=== PATIENT | female | born 1980 | race Caucasian/White ===

== ENCOUNTER 2022-04-16 14:18 | Emergency (ER) | payer MEDICARE ==
--- NOTE | 2022-04-16 14:21 | ERPHSYRPT ---
- History of Present Illness Time Seen by Provider: 04/16/22 14:20 Historian: patient Exam Limitations: no limitations Physician History: This is a 42-year-old female who underwent an abdominal surgery that included a bowel resection on 04/03/[address] David at an outside facility. Patient has a history of Crohn's disease. She is also had a hysterectomy in the past. Patient states she is she is having increased abdominal/incisional pain of her midline incision on her abdomen for the last few days. The skin of the mid and lower portion of her midline incision has dehisced and there is drainage present. Patient has a history of gastroesophageal reflux disease, anxiety as well as uterine fibroids and uterine cancer. Timing/Duration: day(s) Quality: burning (Few days) Abdominal Pain Onset Location: other (Midline incision skin dehisced) Previous symptoms: no prior history Allergies/Adverse Reactions: acetaminophen [From Tylenol] Allergy (Severe, Verified 04/16/22 14:27) Swelling of Tongue and Lips hydrocodone [From Lortab] Allergy (Severe, Verified 04/16/22 14:27) Swelling of Tongue and Lips natalizumab [From Tysabri] Allergy (Severe, Verified 04/16/22 14:27) Hives onion Allergy (Severe, Verified 04/16/22 14:27) Swelling of Tongue and Lips tomato Allergy (Severe, Verified 04/16/22 14:27) Tightness of Throat morphine Adverse Reaction (Severe, Verified 04/16/22 14:27) Travel Risk - International Travel Have you traveled outside of the country in past 3 weeks: No - Coronavirus Screening Are you exhibiting any of the following symptoms?: No Close contact with a COVID-19 positive Pt in past 14-21 Days: No - Review of Systems Constitutional: No Symptoms Eyes: No Symptoms Ears, Nose, & Throat: No Symptoms Respiratory: No Symptoms Cardiac: No Symptoms Abdominal/Gastrointestinal: Abdominal Pain (Along midline incision site that has dehisced), Nausea, Vomiting Genitourinary Symptoms: No Symptoms Musculoskeletal: No Symptoms Skin: No Symptoms Neurological: No Symptoms Psychological: No Symptoms Endocrine: No Symptoms Hematologic/Lymphatic: No Symptoms Immunological/Allergic: No Symptoms All Other Systems: Reviewed and Negative - Past Medical History Pertinent Past Medical History: Yes Neurological History: Migraines ENT History: No Pertinent History Cardiac History: No Pertinent History Respiratory History: No Pertinent History Endocrine Medical History: No Pertinent History Musculoskeletal History: No Pertinent History GI Medical History: Crohns Disease, GERD, Ulcer History: No Pertinent History Psycho-Social History: Anxiety, Depression Female Reproductive Disorders: Fibroids, Uterine Cancer - Past Surgical History Past Surgical History: Yes Neuro Surgical History: No Pertinent History Cardiac: No Pertinent History Respiratory: No Pertinent History Gastrointestinal: Cholecystectomy, Other Genitourinary: No Pertinent History Musculoskeletal: Orthopedic Surgery Female Surgical History: Hysterectomy, Dilation & Curettage, Other Other Surgical History: small intestine resect, pins R foot, multiple port placement - Social History Smoking Status: Former smoker Drug Use: none - Nursing Vital Signs Nursing Vital Signs: Initial Vital Signs Temperature 98.5 F 04/16/22 14:30 Pulse Rate 106 H 04/16/22 14:30 Respiratory Rate 17 04/16/22 14:30 Blood Pressure 94/69 04/16/22 14:30 O2 Sat by Pulse Oximetry 97 04/16/22 14:30 Pain Scale Pain Intensity 8 - Physical Exam General Appearance: no apparent distress, alert, anxiety Eye Exam: PERRL/EOMI, eyes nml inspection Ears, Nose, Throat Exam: normal ENT inspection, moist mucous membranes Neck Exam: normal inspection, non-tender, supple, full range of motion Respiratory Exam: normal breath sounds, airway intact, No chest tenderness, No respiratory distress Cardiovascular Exam: regular rate/rhythm, normal heart sounds, normal peripheral pulses Gastrointestinal/Abdomen Exam: soft, normal bowel sounds, tenderness (Along midline incision that has opened in the midportion at the skin level and the distal portion. There is no odor present.) Pelvic Exam: not done Rectal Exam: not done Back Exam: normal inspection, normal range of motion, No CVA tenderness, No vertebral tenderness Extremity Exam: normal inspection, normal range of motion, pelvis stable Neurologic Exam: alert, oriented x 3, cooperative, unemployment examiner II-XII nml as tested, normal mood/affect, nml cerebellar function, nml station & gait, sensation nml Skin Exam: normal color, warm, dry Lymphatic Exam: No adenopathy SpO2 Interpretation: normal O2 Delivery: Room Air - Course Nursing assessment & vital signs reviewed: Yes Ordered Tests: Active Orders 24 hr Category Date Time Status IV Insertion STAT Care 04/16/22 14:40 Active ABDOMEN AND PELVIS W/0 CONTRAS [CT] Stat Exams 04/16/22 14:41 Completed AMYLASE Stat Lab 04/16/22 15:00 Completed BLOOD CULTURE Stat Lab 04/16/22 15:05 Received CBC W DIFF Stat Lab 04/16/22 15:00 Completed CMP Stat Lab 04/16/22 15:00 Completed CULTURE,URINE Stat Lab 04/16/22 16:58 Received CULTURE,WOUND Stat Lab 04/16/22 15:58 Received LIPASE Stat Lab 04/16/22 15:00 Completed Lactic Acid Stat Lab 04/16/22 15:03 Completed UA W/RFX CULTURE Stat Lab 04/16/22 16:58 Completed Medication Summary Generic Name Dose Route Start Last Admin Trade Name Freq PRN Reason Stop Dose Admin Sodium Chloride 1,000 mls @ 100 mls/hr 04/16/22 16:45 04/16/22 19:27 Sodium Chloride 0.9% 1000 Ml IV 05/16/22 16:44 999 mls/hr .Q10H ROMULO Infusion Discontinued Medications Generic Name Dose Route Start Last Admin Trade Name Freq PRN Reason Stop Dose Admin Hydromorphone HCl 1 mg 04/16/22 15:01 04/16/22 15:10 Hydromorphone 1 Mg/1ml Inj 1 Mg/Ml Syringe IV 04/16/22 15:02 1 mg STAT ONE Administration Hydromorphone HCl Confirm 04/16/22 15:10 Hydromorphone 1 Mg/1ml Inj 1 Mg/Ml Syringe Administered 04/16/22 15:11 Dose 1 mg .ROUTE .STK-MED ONE Sodium Chloride 1,000 mls @ 999 mls/hr 04/16/22 14:40 04/16/22 16:03 Sodium Chloride 0.9% 1000 Ml IV 04/16/22 15:40 Infused .Q1H1M STA Infusion Sodium Chloride Confirm 04/16/22 14:58 Sodium Chloride 0.9% 1000 Ml Administered 04/16/22 14:59 Dose 1,000 mls @ ud .ROUTE .STK-MED ONE Potassium Chloride 20 meq in 100 mls @ 50 mls/hr 04/16/22 16:35 04/16/22 16:53 Potassium Chloride 20 Meq In Water 100ml IV 04/16/22 18:34 50 mls/hr STAT ONE Administration Potassium Chloride Confirm 04/16/22 16:37 Potassium Chloride 20 Meq In Water 100ml Administered 04/16/22 16:38 Dose 100 mls @ ud IV .STK-MED ONE Sodium Chloride 1,000 mls @ 999 mls/hr 04/16/22 16:51 Sodium Chloride 0.9% 1000 Ml IV 04/16/22 17:51 .Q1H1M STA Piperacillin Sod/Tazobactam 100 mls @ 200 mls/hr 04/16/22 19:17 04/16/22 19:43 Sod 3.375 gm/ Sodium Chloride IV 04/16/22 19:46 200 mls/hr STAT ONE Administration Sodium Chloride Confirm 04/16/22 19:27 Sodium Chloride 100ml Mini-Bag Plus Administered 04/16/22 19:28 Dose 100 mls @ ud IV .STK-MED ONE Ondansetron HCl 4 mg 04/16/22 14:40 04/16/22 15:05 Ondansetron Hcl 4 Mg/2 Ml Vial IV 04/16/22 14:41 4 mg STAT ONE Administration Ondansetron HCl Confirm 04/16/22 14:57 Ondansetron Hcl 4 Mg/2 Ml Vial Administered 04/16/22 14:58 Dose 4 mg .ROUTE .STK-MED ONE Piperacillin Sod/Tazobactam Sod Confirm 04/16/22 19:27 Piperacillin/Tazobactam Sodium 3.375 Gm Vial Administered 04/16/22 19:28 Dose 3.375 gm IV .STK-MED ONE Prochlorperazine Edisylate 10 mg 04/16/22 16:52 04/16/22 16:57 Prochlorperazine Edisylate 10 Mg/2 Ml Vial IV 04/16/22 16:53 10 mg STAT ONE Administration Prochlorperazine Edisylate Confirm 04/16/22 16:57 Prochlorperazine Edisylate 10 Mg/2 Ml Vial Administered 04/16/22 16:58 Dose 10 mg .ROUTE .STK-MED ONE Lab/Rad Data: Laboratory Result Diagrams 04/16/22 15:00 04/16/22 15:00 Laboratory Results 04/16/22 04/16/22 04/16/22 Range/Units 16:58 15:03 15:00 WBC (4.0-10.5) x10^3/uL RBC (4.1-5.4) x10^6/uL Hgb (12.0-16.0) g/dL Hct (35-47) % MCV (78-100) fL MCH (26-32) pg MCHC (32-36) g/dL RDW (11.5-14.0) % Plt Count (150-450) x10^3/uL MPV (7.5-11.0) fL Gran % (36.0-66.0) % Immature Gran % (Auto) (0.00-0.4) % Nucleat RBC Rel Count (0.00-0.1) % Eos # (Auto) (0-0.5) x10^3/uL Immature Gran # (Auto) (0.00-0.03) x10^3u/L Absolute Lymphs (auto) (1.0-4.6) x10^3/uL Absolute Monos (auto) (0.0-1.3) x10^3/uL Absolute Nucleated RBC (0.00-0.01) x10^3u/L Lymphocytes % (24.0-44.0) % Monocytes % (0.0-12.0) % Eosinophils % (0.00-5.0) % Basophils % (0.0-0.4) % Absolute Granulocytes (1.4-6.9) x10^3/uL Basophils # (0-0.4) x10^3/uL Sodium 135 L (137-145) mmol/L Potassium 2.4 L* (3.5-5.1) mmol/L Chloride 101 (98-107) mmol/L Carbon Dioxide 19 L (22-30) mmol/L Anion Gap 17.4 H (5-15) MEQ/L BUN 22 H (7-17) mg/dL Creatinine 2.81 H (0.52-1.04) mg/dL Estimated GFR 19.8 ML/MIN Glucose 121 H (74-106) mg/dL Lactic Acid 1.0 (0.4-2.0) Calcium 8.6 (8.4-10.2) mg/dL Total Bilirubin 0.90 (0.2-1.3) mg/dL AST 20 (14-36) U/L ALT 19 (0-35) U/L Alkaline Phosphatase 103 (38-126) U/L Serum Total Protein 8.3 H (6.3-8.2) g/dL Albumin 3.6 (3.5-5.0) g/dL Amylase 59 (30-110) U/L Lipase 61 (23-300) U/L Urinalys Dipstick Clnc MAIN LAB Urine Color YELLOW (YELLOW) Urine Appearance CLEAR (CLEAR) Urine pH 5.5 (5-6) Ur Specific Wray >=1.030 (1.005-1.025) POC Urine Protein Conf 100 (Negative) Urine Ketones NEGATIVE (NEGATIVE) Urine Nitrite NEGATIVE (NEGATIVE) Urine Bilirubin SMALL (NEGATIVE) Urine Urobilinogen 0.2 (0-1) mg/dL Urine Leukocytes TRACE (NEGATIVE) Urine WBC (Auto) 16-25 (0-5) /HPF Urine RBC (Auto) 16-25 (0-2) /HPF U Hyaline Cast (Auto) 6-10 (0-2) /LPF U Epithel Cells (Auto) RARE (FEW) /HPF Urine Bacteria (Auto) NONE (NEGATIVE) /HPF Urine RBC MODERATE (0-5) Alonso/ul Urine Mucus (Auto) SLIGHT (NEGATIVE) /HPF Ur Culture Indicated? YES Urine Glucose NEGATIVE (NEGATIVE) mg/dL 04/16/22 Range/Units 15:00 WBC 16.3 H (4.0-10.5) x10^3/uL RBC 3.24 L (4.1-5.4) x10^6/uL Hgb 9.0 L (12.0-16.0) g/dL Hct 28.4 L (35-47) % MCV 87.7 (78-100) fL MCH 27.8 (26-32) pg MCHC 31.7 L (32-36) g/dL RDW 13.2 (11.5-14.0) % Plt Count 480 H (150-450) x10^3/uL MPV 9.9 (7.5-11.0) fL Gran % 80.6 H (36.0-66.0) % Immature Gran % (Auto) 0.4 (0.00-0.4) % Nucleat RBC Rel Count 0.0 (0.00-0.1) % Eos # (Auto) 0.05 (0-0.5) x10^3/uL Immature Gran # (Auto) 0.07 H (0.00-0.03) x10^3u/L Absolute Lymphs (auto) 1.52 (1.0-4.6) x10^3/uL Absolute Monos (auto) 1.52 H (0.0-1.3) x10^3/uL Absolute Nucleated RBC 0.00 (0.00-0.01) x10^3u/L Lymphocytes % 9.3 L (24.0-44.0) % Monocytes % 9.3 (0.0-12.0) % Eosinophils % 0.3 (0.00-5.0) % Basophils % 0.1 (0.0-0.4) % Absolute Granulocytes 13.08 H (1.4-6.9) x10^3/uL Basophils # 0.02 (0-0.4) x10^3/uL Sodium (137-145) mmol/L Potassium (3.5-5.1) mmol/L Chloride (98-107) mmol/L Carbon Dioxide (22-30) mmol/L Anion Gap (5-15) MEQ/L BUN (7-17) mg/dL Creatinine (0.52-1.04) mg/dL Estimated GFR ML/MIN Glucose (74-106) mg/dL Lactic Acid (0.4-2.0) Calcium (8.4-10.2) mg/dL Total Bilirubin (0.2-1.3) mg/dL AST (14-36) U/L ALT (0-35) U/L Alkaline Phosphatase (38-126) U/L Serum Total Protein (6.3-8.2) g/dL Albumin (3.5-5.0) g/dL Amylase (30-110) U/L Lipase (23-300) U/L Urinalys Dipstick Clnc Urine Color (YELLOW) Urine Appearance (CLEAR) Urine pH (5-6) Ur Specific Wray (1.005-1.025) POC Urine Protein Conf (Negative) Urine Ketones (NEGATIVE) Urine Nitrite (NEGATIVE) Urine Bilirubin (NEGATIVE) Urine Urobilinogen (0-1) mg/dL Urine Leukocytes (NEGATIVE) Urine WBC (Auto) (0-5) /HPF Urine RBC (Auto) (0-2) /HPF U Hyaline Cast (Auto) (0-2) /LPF U Epithel Cells (Auto) (FEW) /HPF Urine Bacteria (Auto) (NEGATIVE) /HPF Urine RBC (0-5) Alonso/ul Urine Mucus (Auto) (NEGATIVE) /HPF Ur Culture Indicated? Urine Glucose (NEGATIVE) mg/dL - Progress Progress: improved, pain not gone completely, re-examined Progress Note: 04/16/22 19:07 CAT scan of the abdomen pelvis shows no evidence for abdominal wall/fascial dehiscence. There is no evidence of bowel obstruction or free air. 04/16/22 20:05 Patient states that she wants to go home. She is feeling much better after the IV fluids and infusion of potassium. We will send a prescription for pain medicine, potassium and oral antibiotics for home. Counseled pt/family regarding: lab results, diagnosis, need for follow-up, rad results - Departure Clinical Impression: Postoperative dehiscence of skin wound, Hypokalemia, Leukocytosis Condition: Stable Critical Care Time: No Referrals: VINCE MCGOVERN MD [NON-STAFF PHY W/O PRIVILEGES] - Follow up/PCP as directed Additional Instructions: Drink clear liquids. Do not advance your diet until you are drinking clear liquids well. Take your potassium as prescribed. Return to the [facility] lab on the morning of Thursday, April 18 to recheck your potassium level. Call your general surgeon tomorrow morning to make arrangements for follow-up appointment. Change her abdominal wall dressing as needed. May get in the shower and let soap water run into the openings and then rinse out. Cover with bandage. Prescriptions: Hydrocodone/APAP 5/325 [[place] 5/325 mg] 1 each PO Q6H PRN PRN #10 tablet MDD 4 PRN Reason: Pain Ciprofloxacin [Cipro 500 MG] 500 mg PO BID #14 tablet Metronidazole 500 mg [Flagyl 500 MG] 500 mg PO TID #21 tablet Potassium Chloride Tab* [Klor Con] 10 meq PO BID #5 tab
[2022-04-16] MEDS ORDERED: Zofran 4 MG/2 ML VIAL IV ONE (14:40)
[2022-04-16] MEDS ORDERED: Sodium Chloride 0.9% 1000 ML 1,000 ML IV STA ×2 (14:40→16:51)
[2022-04-16] MEDS ORDERED: Zofran 4 MG/2 ML VIAL ONE (14:57)
[2022-04-16] MEDS ORDERED: Sodium Chloride 0.9% 1000 ML 1,000 ML ONE ×2 (14:58→16:41)
[2022-04-16] MEDS ORDERED: Hydromorphone 1 mg/ml Injection IV ONE (15:01)
[2022-04-16 15:09] LABS: Absolute Neutrophil Ct (ANC) 13.08 x10^3/uL (1.4-6.9); Basophil (Absolute #) 0.02 x10^3/uL (0-0.4); Eosinophil % 0.3 % (0.00-5.0); Eosinophil (Absolute #) 0.05 x10^3/uL (0-0.5); Hematocrit 28.4 % (35-47); Lymphocyte (Absolute #) 1.52 x10^3/uL (1.0-4.6); Lymphocytes % 9.3 % (24.0-44.0); Mean Cell Volume 87.7 fL (78-100); Mean Corpuscular Hemoglobin 27.8 pg (26-32); Mean Corpuscular Hgb Concent. 31.7 g/dL (32-36); Mean Platelet Volume 9.9 fL (7.5-11.0); Monocyte (Absolute #) 1.52 x10^3/uL (0.0-1.3); Monocytes % 9.3 % (0.0-12.0); Neutrophil % 80.6 % (36.0-66.0); Platelet Count 480 x10^3/uL (150-450); Red Blood Count 3.24 x10^6/uL (4.1-5.4); Red Cell Distribution Width 13.2 % (11.5-14.0); White Blood Count 16.3 x10^3/uL (4.0-10.5)
[2022-04-16] MEDS ORDERED: Hydromorphone 1 mg/ml Injection ONE (15:10)
[2022-04-16 15:29] LABS: ALBUMIN 3.6 g/dL (3.5-5.0); ANION GAP 17.4 MEQ/L (5-15); BILIRUBIN,TOTAL 0.9 mg/dL (0.2-1.3); Calcium 8.6 mg/dL (8.4-10.2); Creatinine 1 2.81 mg/dL (0.52-1.04); EST GLOMERULAR FILTRATION RATE 19.8 ML/MIN; Total Protein 8.3 g/dL (6.3-8.2)
[2022-04-16 15:34] LABS: Potassium 2.4 mmol/L (3.5-5.1)
[2022-04-16] MEDS ORDERED: POTASSIUM CHLORIDE 20 mEq IN WATER 100ML 20 MEQ/100 ML BAG IV ONE (16:35)
[2022-04-16] MEDS ORDERED: POTASSIUM CHLORIDE 20 mEq IN WATER 100ML 100 ML IV ONE (16:37)
--- NOTE | 2022-04-16 16:40 | XRAY ---
Exam: CT of the abdomen and pelvis without IV contrast. CTDI: 9.10 mGy Comparison: [None.] Indication: 42-year-old female with history of Crohn's disease. Complains of nausea and vomiting following hospital discharge on 04/05/2022 subsequent to partial bowel resection performed on 04/03/2022; complains of pain and swelling around incision site for the last few days; abdominal wound dehiscence. Technique: Non-IV contrast axial images were obtained through the abdomen and pelvis. No oral contrast was given. Reconstructed coronal and sagittal images were created and reviewed. Findings: The lung bases appear clear. The exam is somewhat limited as no IV or oral contrast was given. The liver, spleen, pancreas, and adrenal glands appear grossly unremarkable. Surgical clips consistent with prior cholecystectomy are noted within the right upper quadrant. No intrahepatic biliary duct distention is seen. The kidneys appear of normal size and reveals no renal calculi, definite mass, or hydronephrosis. The abdominal aorta appears of normal diameter. No abnormal retroperitoneal lymphadenopathy is seen. A midline vertical abdominal incision is seen. I do not appreciate any diastasis. Numerous surgical material is seen within the anterior lower abdomen in the midline. It appears there may have been a right hemicolectomy. Correlate with surgical operative note. I note some hazy stranding within the adjacent small bowel loops, perhaps secondary to postoperative changes. No definite bowel obstruction or free air or free fluid is seen. Nor do I see an abscess in this region. Some of the small bowel loops appear in close proximity with the posterior margin of the anterior peritoneum. This is nonspecific, but consider adhesions. There may be one small diverticulum within the distal descending colon. The uterine fundus is mildly prominent. The urinary bladder is partially empty. No pelvic mass or free intraperitoneal fluid is seen. The skeleton reveals no acute fracture or aggressive bone lesion. Impression: 1. The exam is somewhat difficult to interpret without the aid of IV or oral contrast. Evidently, the patient is 13 days status post laparotomy with partial bowel resection (? right hemicolon). Some of the small bowel loops appear in close proximity within the lower anterior abdominal peritoneum in the midline. Consider adhesions. I see no evidence of abdominal wall dehiscence. Clinical correlation is recommended regarding the superficial anterior subcutaneous wound. No bowel obstruction or free intraperitoneal air is seen. No free intraperitoneal fluid is seen. 2. Status post cholecystectomy.
[2022-04-16] MEDS ORDERED: Compazine 10 MG/2 ML IV ONE (16:52)
[2022-04-16] MEDS: Sodium Chloride 0.9% 1000 ML 1,000 ML IV SCH ×2 (16:53→16:56)
[2022-04-16] MEDS ORDERED: Compazine 10 MG/2 ML ONE (16:57)
[2022-04-16 17:25] LABS: Appearance CLEAR (CLEAR); Bilirubin SMALL (NEGATIVE); Dipstick done @ ? MAIN LAB; Glucose NEGATIVE (NEGATIVE); Ketones NEGATIVE (NEGATIVE); Nitrite NEGATIVE (NEGATIVE); Ph 5.5 (5-6); Protein,Urine Dip 100 (Negative); RBC MODERATE Ery/ul (0-5); Specific Gravity >=1.030 (1.005-1.025); Urobilinogen 0.2 mg/dL (0-1)
[2022-04-16 17:33] LABS: Epithelial Cells RARE /HPF (FEW); Mucus SLIGHT /HPF (NEGATIVE)
[2022-04-16 17:36] LABS: Urine Cultured Indicated? YES
[2022-04-16] MEDS ORDERED: PIPERACILLIN/TAZOBACTAM 3.375 GM in Sodium Chloride 100ML MINI-BAG PLUS 100 ML IV ONE (19:17)
[2022-04-16] MEDS ORDERED: Sodium Chloride 100ML MINI-BAG PLUS 100 ML IV ONE (19:27)
[2022-04-16] MEDS ORDERED: PIPERACILLIN/TAZOBACTAM IV ONE (19:27)
[2022-04-16] MEDS ORDERED: Klor Con PO ONE ×2 (20:12→20:47)
[2022-04-16 20:20] LABS: Slide Review 1 YES
[2022-04-16 21:01] VITALS: BP 102/70; PULSE 85; O2SAT 98
== END 2022-04-16 20:00 | disposition home or self-care (01) ==
LOC: ED 14:18
DX: T81.31XA Disruption of external operation (surgical) wound, not elsewhere classified, initial encounter (principal); E87.6 Hypokalemia; D72.829 Elevated white blood cell count, unspecified; G89.18 Other acute postprocedural pain; R10.9 Unspecified abdominal pain; Z79.891 Long term (current) use of opiate analgesic
CPT/HCPCS: 36000; 36415; 74176; 80053; 81015; 82150; 83605; 83690; 85025; 87040; 87070; 87086; 96374; 96375; 99284; J1170; J2405; J3480; A9270-GY

== ENCOUNTER 2022-06-21 15:30 | Inpatient (IN) | payer MEDICARE ==
--- NOTE | 2022-06-21 15:39 | ERPHSYRPT ---
- History of Present Illness Time Seen by Provider: 06/21/22 15:30 Source: patient, EMS Exam Limitations: no limitations Patient Subjective Stated Complaint: PT HERE FOR MULTI COS, PT CALLED AMBULANCE FOR NG TUBE PROBLEM, SHE STATES SHE VOMTIED TIP UP AND THEN HAD A SEIZURE. SHE STATES SHE HAS SEIZURES WHEN SHE IS UNDER STRESS, PT HAS COLON RESECTION . AND NOW HAS INFECTION IN INCISION Triage Nursing Assessment: PT ALERT NOW, ABLE TO ANSWER QUESTIONS, HAS NG TUBE TO LEFT NOSTRIL THAT IS HANGING OUT OF MOUTH, DR KENDALL REMVED NG, AND VOMITNG HAS STOPPED, PT HAS DRESSING TO ABD WITH A DRAIN TO LEFT SIDE OF ABD WITH YELLOW DRAINAGE NOTED IN DRAIN, ABD SOFT, NO EDEMA NOTED Physician History: This is a 42-year-old female patient who had a bowel resection on 04/03/2022 and had out side facility. Postoperatively she has had some issues including weight loss and incision infection. Patient has a left upper extremity PICC line placed and a left intra-abdominal/subcutaneous drain placed. In addition she had a nasojejunal feeding tube placed because she had had significant weight loss. Today, the patient was having abdominal pain with vomiting then was gagging to the point where she dislodged the distal tip of the feeding tube. The tube that was in the hypopharynx was gagging her. Because of the multiple episodes of gagging, the patient became stressed and she had pseudoseizure. Patient admits to having pseudoseizures in the past when she is under a great deal of stress. Patient has significant anxiety issues as well as ulcer disease and gastroesophageal reflux disease. Patient arrives to the emergency department by EMS gagging and under distress because the distal portion of the feeding tube was dislodged with the proximal portion gagging her in the back of the throat. Timing/Duration: today Severity: moderate Associated Symptoms: nausea, vomiting, abdominal pain, No shortness of breath (Mild diffuse), No chest pain Allergies/Adverse Reactions: acetaminophen [From Tylenol] Allergy (Severe, Verified 06/21/22 15:40) Swelling of Tongue and Lips hydrocodone [From Lortab] Allergy (Severe, Verified 06/21/22 15:40) Swelling of Tongue and Lips natalizumab [From Tysabri] Allergy (Severe, Verified 06/21/22 15:40) Hives onion Allergy (Severe, Verified 06/21/22 15:40) Swelling of Tongue and Lips tomato Allergy (Severe, Verified 06/21/22 15:40) Tightness of Throat latex Allergy (Verified 06/21/22 15:40) morphine Adverse Reaction (Severe, Verified 06/21/22 15:40) Home Medications: Cyanocobalamin 1000 Mcg/ml [Cyanocobalamin B-12 1000 MCG/ML] 1,000 mcg IJ DIRECTIONS UNKNOWN 05/14/22 [History] Ergocalciferol (Vitamin D2) [Vitamin D2] 50,000 unit PO Q7D 05/14/22 [History] Oxycodone HCl 5 mg PO Q4HPRN PRN 05/14/22 [History] Fluconazole 200 mg PO DAILY 06/21/22 [History] Minocycline HCl 1 ea DAILY 06/21/22 [History] Pyridoxine HCl (Vitamin B6) [Vitamin B-6] 220 mg DAILY 06/21/22 [History] Vitamin A Palmitate [Vitamin A] 3,000 units DAILY 06/21/22 [History] Zinc Gluconate [Zinc] 50 mg PO DAILY 06/21/22 [History] Hx Tetanus, Diphtheria Vaccination/Date Given: Yes Hx Influenza Vaccination/Date Given: No Hx Pneumococcal Vaccination/Date Given: No Immunizations Up to Date: Yes Travel Risk - International Travel Have you traveled outside of the country in past 3 weeks: No - Coronavirus Screening Are you exhibiting any of the following symptoms?: No - Vaccine Status Have you recieved a Covid-19 vaccination: Yes Toe Stripper: Unknown - Vaccination Dates Dates if Unknown: 2020 - Review of Systems Constitutional: No Symptoms Eyes: No Symptoms Ears, Nose, & Throat: No Symptoms Respiratory: No Symptoms Cardiac: No Symptoms Abdominal/Gastrointestinal: Abdominal Pain, Nausea, Vomiting (Secondary to the feeding tube gagging her) Genitourinary Symptoms: No Symptoms Musculoskeletal: No Symptoms Skin: No Symptoms Neurological: Seizure (Pseudoseizure) Psychological: No Symptoms, Anxiety Endocrine: No Symptoms Hematologic/Lymphatic: No Symptoms Immunological/Allergic: No Symptoms All Other Systems: Reviewed and Negative - Past Medical History Pertinent Past Medical History: Yes Neurological History: Migraines ENT History: No Pertinent History Cardiac History: No Pertinent History Respiratory History: No Pertinent History Endocrine Medical History: No Pertinent History Musculoskeletal History: No Pertinent History GI Medical History: Crohns Disease, GERD, Ulcer History: No Pertinent History Psycho-Social History: Anxiety, Depression Female Reproductive Disorders: Fibroids, Uterine Cancer Other Medical History: unknown source of kidney failure - Past Surgical History Past Surgical History: Yes Neuro Surgical History: No Pertinent History Cardiac: No Pertinent History Respiratory: No Pertinent History Gastrointestinal: Cholecystectomy, Other Genitourinary: No Pertinent History Musculoskeletal: Orthopedic Surgery Female Surgical History: Hysterectomy, Dilation & Curettage, Other Other Surgical History: small intestine resect 4-5 times, pins R foot, multiple port placement - Social History Smoking Status: Former smoker Exposure to second hand smoke: No Drug Use: none Patient Lives Alone: No - Female History Hx Last Menstrual Period: HYSTER Hx Now: No - Nursing Vital Signs Nursing Vital Signs: Initial Vital Signs Temperature 96.4 F 06/21/22 15:43 Pulse Rate 120 H 06/21/22 15:43 Respiratory Rate 18 06/21/22 15:43 Blood Pressure 101/65 06/21/22 15:43 O2 Sat by Pulse Oximetry 100 06/21/22 15:43 Pain Scale Pain Intensity 5 - Physical Exam General Appearance: moderate distress, alert, anxiety Eye Exam: PERRL/EOMI, eyes nml inspection Ears, Nose, Throat Exam: moist mucous membranes, other (Distal tip of the feeding tube was dislodged. The proximal portion of the feeding tube is gagging the patient in the hypopharynx.) Neck Exam: normal inspection, non-tender, supple, full range of motion Respiratory Exam: normal breath sounds, lungs clear, airway intact, No chest tenderness, No respiratory distress Cardiovascular Exam: tachycardia Gastrointestinal/Abdomen Exam: soft, normal bowel sounds, tenderness (Mild diffuse), guarding (Mild diffuse with palpation), No rebound Pelvic Exam: not done Back Exam: normal inspection, normal range of motion, No CVA tenderness, No vertebral tenderness Extremity Exam: normal inspection, normal range of motion, pelvis stable Neurologic Exam: alert, oriented x 3, cooperative, 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 Ordered Tests: Active Orders 24 hr Category Date Time Status IV Insertion STAT Care 06/21/22 15:52 Active ABDOMEN AND PELVIS W/0 CONTRAS [CT] Stat Exams 06/21/22 15:52 Taken HEAD WITHOUT CONTRAST [CT] Stat Exams 06/21/22 15:53 Taken AMYLASE Stat Lab 06/21/22 16:00 Completed CBC W DIFF Stat Lab 06/21/22 16:00 Completed CMP Stat Lab 06/21/22 16:00 Completed CULTURE,URINE Stat Lab 06/21/22 17:14 Received LIPASE Stat Lab 06/21/22 16:00 Completed Lactic Acid Stat Lab 06/21/22 15:52 Completed Lactic Acid Stat Lab 06/21/22 16:58 Completed UA W/RFX CULTURE Stat Lab 06/21/22 17:14 Completed Transfer Order Routine Transfer 06/21/22 Ordered Medication Summary Generic Name Dose Route Start Last Admin Trade Name Freq PRN Reason Stop Dose Admin Piperacillin Sod/Tazobactam 100 mls @ 200 mls/hr 06/21/22 19:15 Sod 3.375 gm/ Sodium Chloride IV 06/21/22 19:44 STAT ONE Discontinued Medications Generic Name Dose Route Start Last Admin Trade Name Freq PRN Reason Stop Dose Admin Hydromorphone HCl 1 mg 06/21/22 15:52 06/21/22 16:29 Hydromorphone 1 Mg/1ml Inj 1 Mg/Ml Syringe IV 06/21/22 15:53 1 mg STAT ONE Administration Hydromorphone HCl Confirm 06/21/22 16:26 Hydromorphone 1 Mg/1ml Inj 1 Mg/Ml Syringe Administered 06/21/22 16:27 Dose 1 mg .ROUTE .STK-MED ONE Sodium Chloride 1,000 mls @ 999 mls/hr 06/21/22 15:52 06/21/22 17:46 Sodium Chloride 0.9% 1000 Ml IV 06/21/22 16:52 Infused .Q1H1M STA Infusion Sodium Chloride Confirm 06/21/22 16:26 Sodium Chloride 0.9% 1000 Ml Administered 06/21/22 16:27 Dose 1,000 mls @ ud .ROUTE .STK-MED ONE Ondansetron HCl 4 mg 06/21/22 15:52 06/21/22 16:29 Ondansetron Hcl 4 Mg/2 Ml Vial IV 06/21/22 15:53 4 mg STAT ONE Administration Ondansetron HCl Confirm 06/21/22 16:26 Ondansetron Hcl 4 Mg/2 Ml Vial Administered 06/21/22 16:27 Dose 4 mg .ROUTE .[facility]-MED ONE Lab/Rad Data: Laboratory Result Diagrams 06/21/22 16:00 06/21/22 16:00 Laboratory Results 06/21/22 06/21/22 06/21/22 Range/Units 17:14 16:58 16:00 WBC (4.0-10.5) x10^3/uL RBC (4.1-5.4) x10^6/uL Hgb (12.0-16.0) g/dL Hct (35-47) % MCV (78-100) fL MCH (26-32) pg MCHC (32-36) g/dL RDW (11.5-14.0) % Plt Count (150-450) x10^3/uL MPV (7.5-11.0) fL Gran % (36.0-66.0) % Immature Gran % (Auto) (0.00-0.4) % Nucleat RBC Rel Count (0.00-0.1) % Eos # (Auto) (0-0.5) x10^3/uL Immature Gran # (Auto) (0.00-0.03) x10^3u/L Absolute Lymphs (auto) (1.0-4.6) x10^3/uL Absolute Monos (auto) (0.0-1.3) x10^3/uL Absolute Nucleated RBC (0.00-0.01) x10^3u/L Lymphocytes % (24.0-44.0) % Monocytes % (0.0-12.0) % Eosinophils % (0.00-5.0) % Basophils % (0.0-0.4) % Absolute Granulocytes (1.4-6.9) x10^3/uL Basophils # (0-0.4) x10^3/uL Sodium 139 (137-145) mmol/L Potassium 4.0 (3.5-5.1) mmol/L Chloride 102 (98-107) mmol/L Carbon Dioxide 29 (22-30) mmol/L Anion Gap 11.9 (5-15) MEQ/L BUN 13 (7-17) mg/dL Creatinine 0.99 (0.52-1.04) mg/dL Estimated GFR > 60.0 ML/MIN Glucose 105 (74-106) mg/dL Lactic Acid 1.8 (0.4-2.0) Calcium 8.1 L (8.4-10.2) mg/dL Total Bilirubin 0.50 (0.2-1.3) mg/dL AST 43 H (14-36) U/L ALT 14 (0-35) U/L Alkaline Phosphatase 129 H (38-126) U/L Serum Total Protein 8.7 H (6.3-8.2) g/dL Albumin 3.2 L (3.5-5.0) g/dL Amylase 67 (30-110) U/L Lipase 71 (23-300) U/L Urinalys Dipstick Clnc MAIN LAB Urine Color YELLOW (YELLOW) Urine Appearance CLEAR (CLEAR) Urine pH 7.0 (5-6) Ur Specific [place] 1.020 (1.005-1.025) POC Urine Protein Conf 100 (Negative) Urine Ketones NEGATIVE (NEGATIVE) Urine Nitrite NEGATIVE (NEGATIVE) Urine Bilirubin NEGATIVE (NEGATIVE) Urine Urobilinogen 0.2 (0-1) mg/dL Urine Leukocytes TRACE (NEGATIVE) Urine WBC (Auto) 6-10 (0-5) /HPF Urine RBC (Auto) 3-5 (0-2) /HPF U Epithel Cells (Auto) RARE (FEW) /HPF Urine Bacteria (Auto) NONE SEEN (NEGATIVE) /HPF Urine RBC TRACE-LYSED (0-5) Alonso/ul Urine Mucus (Auto) SLIGHT (NEGATIVE) /HPF Ur Culture Indicated? YES Urine Glucose NEGATIVE (NEGATIVE) mg/dL 06/21/22 06/21/22 Range/Units 16:00 15:52 WBC 8.6 (4.0-10.5) x10^3/uL RBC 3.39 L (4.1-5.4) x10^6/uL Hgb 8.8 L (12.0-16.0) g/dL Hct 29.8 L (35-47) % MCV 87.9 (78-100) fL MCH 26.0 (26-32) pg MCHC 29.5 L (32-36) g/dL RDW 15.9 H (11.5-14.0) % Plt Count 268 (150-450) x10^3/uL MPV 10.1 (7.5-11.0) fL Gran % 77.2 H (36.0-66.0) % Immature Gran % (Auto) 0.2 (0.00-0.4) % Nucleat RBC Rel Count 0.0 (0.00-0.1) % Eos # (Auto) 0.02 (0-0.5) x10^3/uL Immature Gran # (Auto) 0.02 (0.00-0.03) x10^3u/L Absolute Lymphs (auto) 0.93 L (1.0-4.6) x10^3/uL Absolute Monos (auto) 0.97 (0.0-1.3) x10^3/uL Absolute Nucleated RBC 0.00 (0.00-0.01) x10^3u/L Lymphocytes % 10.9 L (24.0-44.0) % Monocytes % 11.3 (0.0-12.0) % Eosinophils % 0.2 (0.00-5.0) % Basophils % 0.2 (0.0-0.4) % Absolute Granulocytes 6.60 (1.4-6.9) x10^3/uL Basophils # 0.02 (0-0.4) x10^3/uL Sodium (137-145) mmol/L Potassium (3.5-5.1) mmol/L Chloride (98-107) mmol/L Carbon Dioxide (22-30) mmol/L Anion Gap (5-15) MEQ/L BUN (7-17) mg/dL Creatinine (0.52-1.04) mg/dL Estimated GFR ML/MIN Glucose (74-106) mg/dL Lactic Acid 1.0 (0.4-2.0) Calcium (8.4-10.2) mg/dL Total Bilirubin (0.2-1.3) mg/dL AST (14-36) U/L ALT (0-35) U/L Alkaline Phosphatase (38-126) U/L Serum Total Protein (6.3-8.2) g/dL Albumin (3.5-5.0) g/dL Amylase (30-110) U/L Lipase (23-300) U/L Urinalys Dipstick Clnc Urine Color (YELLOW) Urine Appearance (CLEAR) Urine pH (5-6) Ur Specific [place] (1.005-1.025) POC Urine Protein Conf (Negative) Urine Ketones (NEGATIVE) Urine Nitrite (NEGATIVE) Urine Bilirubin (NEGATIVE) Urine Urobilinogen (0-1) mg/dL Urine Leukocytes (NEGATIVE) Urine WBC (Auto) (0-5) /HPF Urine RBC (Auto) (0-2) /HPF U Epithel Cells (Auto) (FEW) /HPF Urine Bacteria (Auto) (NEGATIVE) /HPF Urine RBC (0-5) Alonso/ul Urine Mucus (Auto) (NEGATIVE) /HPF Ur Culture Indicated? Urine Glucose (NEGATIVE) mg/dL - Progress Progress: improved Progress Note: 06/21/22 16:54 After removing the feeding tube the patient's symptoms completely resolved. 06/21/22 19:16 Medical decision making: This patient should be evaluated and managed in the hospital setting. I did put a call into [facility] and spoke with the patient's surgeon Dr. David. I reviewed the patient's history, clinical findings, and results of her labs and radiographic studies. The patient has a small left basilar? Septic emboli. She has small to moderate pericardial effusion. She has an infiltrate in the region of the coloenteric anastomosis with in situ drain. There is also a small right subhepatic collection. There is also postoperative midline abdominal wall incisional infiltrate with periumbilical collection. A mucocutaneous fistula cannot be ruled out. Dr. David agrees that this patient should be managed in the hospital. However they do not have beds available for the next approximately 5 days. It may be 2 days depending on the discharges. They do accept her for transfer. In the meantime, we will place her in the hospital here at [facility]. I spoke with Dr. Lopez and he agrees. We will place her on intravenous antibiotics, IV fluids, antiemetics, and pain medication intravenously. We will also repeat labs in the morning. Discussed with : Chester Counseled pt/family regarding: lab results, diagnosis, rad results - Departure Departure Disposition: Home Clinical Impression: Vomiting, Abdominal pain, Cutaneous fistula Condition: Stable Critical Care Time: No Referrals: LEE JENKINS MD [Primary Care Provider] - Follow up/PCP as directed
[2022-06-21] MEDS ORDERED: Zofran 4 MG/2 ML VIAL IV ONE (15:52)
[2022-06-21] MEDS ORDERED: Hydromorphone 1 mg/ml Injection IV ONE (15:52)
[2022-06-21] MEDS ORDERED: Sodium Chloride 0.9% 1000 ML 1,000 ML IV STA (15:52)
[2022-06-21] MEDS ORDERED: Zofran 4 MG/2 ML VIAL ONE (16:26)
[2022-06-21] MEDS ORDERED: Sodium Chloride 0.9% 1000 ML 1,000 ML ONE (16:26)
[2022-06-21] MEDS ORDERED: Hydromorphone 1 mg/ml Injection ONE (16:26)
[2022-06-21 17:01] LABS: Basophil (Absolute #) 0.02 x10^3/uL (0-0.4); Eosinophil % 0.2 % (0.00-5.0); Eosinophil (Absolute #) 0.02 x10^3/uL (0-0.5); Hematocrit 29.8 % (35-47); Hemoglobin 8.8 g/dL (12.0-16.0); Lymphocyte (Absolute #) 0.93 x10^3/uL (1.0-4.6); Lymphocytes % 10.9 % (24.0-44.0); Mean Cell Volume 87.9 fL (78-100); Mean Corpuscular Hgb Concent. 29.5 g/dL (32-36); Mean Platelet Volume 10.1 fL (7.5-11.0); Monocyte (Absolute #) 0.97 x10^3/uL (0.0-1.3); Monocytes % 11.3 % (0.0-12.0); Neutrophil % 77.2 % (36.0-66.0); Platelet Count 268 x10^3/uL (150-450); Red Blood Count 3.39 x10^6/uL (4.1-5.4); Red Cell Distribution Width 15.9 % (11.5-14.0); White Blood Count 8.6 x10^3/uL (4.0-10.5)
[2022-06-21 17:16] LABS: ALBUMIN 3.2 g/dL (3.5-5.0); ALKALINE PHOSPHATASE 129 U/L (38-126); AMYLASE 67 U/L (30-110); ANION GAP 11.9 MEQ/L (5-15); BLOOD UREA NITROGEN 13 mg/dL (7-17); CHLORIDE 102 mmol/L (98-107); Calcium 8.1 mg/dL (8.4-10.2); Carbon Dioxide 29 mmol/L (22-30); Creatinine 1 0.99 mg/dL (0.52-1.04); EST GLOMERULAR FILTRATION RATE > 60.0 ML/MIN; Glucose 105 mg/dL (74-106); LIPASE 71 U/L (23-300); SGOT/AST 43 U/L (14-36); SGPT/ALT 14 U/L (0-35); SODIUM 139 mmol/L (137-145); Total Protein 8.7 g/dL (6.3-8.2)
[2022-06-21 17:46] LABS: Appearance CLEAR (CLEAR); Bilirubin NEGATIVE (NEGATIVE); Glucose NEGATIVE (NEGATIVE); Ketones NEGATIVE (NEGATIVE); RBC TRACE-LYSED Ery/ul (0-5)
[2022-06-21 17:47] LABS: Dipstick done @ ? MAIN LAB; Nitrite NEGATIVE (NEGATIVE); Protein,Urine Dip 100 (Negative); Urobilinogen 0.2 mg/dL (0-1)
[2022-06-21 18:01] LABS: Bacteria NONE SEEN /HPF (NEGATIVE); Epithelial Cells RARE /HPF (FEW); Mucus SLIGHT /HPF (NEGATIVE)
[2022-06-21 18:02] LABS: Urine Cultured Indicated? YES
[2022-06-21] MEDS ORDERED: PIPERACILLIN/TAZOBACTAM 3.375 GM in Sodium Chloride 100ML MINI-BAG PLUS 100 ML IV ONE (19:15)
[2022-06-21] MEDS ORDERED: PIPERACILLIN/TAZOBACTAM IV ONE (19:33)
[2022-06-21] MEDS ORDERED: Sodium Chloride 0.9% 0 ML ONE (19:34)
[2022-06-21] MEDS ORDERED: Sodium Chloride 100ML MINI-BAG PLUS 100 ML IV ONE (19:37)
[2022-06-21 20:00] LABS: INFLUENZA A NEGATIVE (NEGATIVE); INFLUENZA B NEGATIVE (NEGATIVE); RESPIRATORY SYNCTIAL VIRUS NEGATIVE (Negative); SARS-CoV-2 Xpert Express NEGATIVE (NEGATIVE)
[2022-06-21] MEDS ORDERED: TYLENOL 325 MG PO PRN (21:15)
[2022-06-21] MEDS ORDERED: Sterile H2O 10 ml IJ ONE (21:41)
[2022-06-21] MEDS: Sodium Chloride 0.9% 1000 ML 1,000 ML IV SCH (21:49)
--- NOTE | 2022-06-21 21:56 | XRAY ---
Indication: Seizure-like activity. Multiple contiguous axial images obtained through the head without contrast. Comparison: None Ventriculosulcal pattern appears symmetric. Absent septum pellucidum. No acute intracranial hemorrhage, abnormal extra-axial fluid collection, or mass effect. Fourth ventricle is midline without hydrocephalus. Bony calvarium intact. Visualized paranasal sinuses and mastoid air cells are clear. Impression: Negative CT head without contrast exam. Comment: Preliminary interpretation made by [facility]. No critical discrepancy.
[2022-06-21] MEDS: Hydromorphone 1 mg/ml Injection IV PRN (22:00)
--- NOTE | 2022-06-21 22:02 | XRAY ---
Indication: Vomiting following NG tube removal. Multiple contiguous axial images obtained through the abdomen and pelvis without contrast. Comparison: April 16, 2022 Lung bases demonstrates new 2 small left lower lobe cavitary lesions, possible septic emboli in the right clinical setting. No effusion. Heart not enlarged with new small anterior pericardial effusion/thickening. Noncontrasted stomach and bowel loops appear nonobstructed. New left paraumbilical percutaneous catheter with pigtail anterior midabdomen with there is new enterocolonic anastomosis with moderate mesenteric induration. Tiny subhepatic free fluid but no suspicious walled off fluid collection or free air. Again previous cholecystectomy. Spleen is now enlarged measuring 13 cm. Mild diffuse fatty liver. Remaining pancreas, adrenal glands, kidneys, ureters, bladder, and aorta are unremarkable for noncontrast exam. Osseous structures intact. Impression: 1. New small left lower lobe cavitary lesions. Rule out septic emboli. 2. Interval enterocolonic anastomosis with new surrounding mesenteric induration and percutaneous pigtail catheter. Small subhepatic fluid but no wall left lobe collection or free air. 3. New anterior pericardial effusion/thickening. Echocardiogram may yield further information. 4. Incidental fatty liver and splenomegaly. Comment: Preliminary interpretation made by [facility]. No critical discrepancy.
[2022-06-21] MEDS: PROTONIX 40 MG IV IV SCH (22:03)
[2022-06-22] MEDS ORDERED: Sodium Chloride 100ML MINI-BAG PLUS 100 ML IV ONE ×2 (00:03→05:36)
[2022-06-22] MEDS ORDERED: PIPERACILLIN/TAZOBACTAM IV ONE ×2 (00:03→05:36)
[2022-06-22] MEDS: PIPERACILLIN/TAZOBACTAM 3.375 GM in Sodium Chloride 100ML MINI-BAG PLUS 100 ML IV SCH ×5 (00:51→22:55)
[2022-06-22] MEDS: Hydromorphone 1 mg/ml Injection IV PRN ×6 (02:03→22:51)
[2022-06-22 06:47] LABS: Basophil (Absolute #) 0.01 x10^3/uL (0-0.4); Eosinophil % 2.7 % (0.00-5.0); Eosinophil (Absolute #) 0.13 x10^3/uL (0-0.5); Hematocrit 24.8 % (35-47); Hemoglobin 7.2 g/dL (12.0-16.0); Lymphocyte (Absolute #) 0.85 x10^3/uL (1.0-4.6); Lymphocytes % 17.7 % (24.0-44.0); Mean Cell Volume 88.6 fL (78-100); Mean Corpuscular Hemoglobin 25.7 pg (26-32); Mean Platelet Volume 10.8 fL (7.5-11.0); Monocytes % 14.6 % (0.0-12.0); Neutrophil % 64.6 % (36.0-66.0); Platelet Count 243 x10^3/uL (150-450); Red Cell Distribution Width 15.9 % (11.5-14.0); White Blood Count 4.8 x10^3/uL (4.0-10.5)
[2022-06-22 06:57] LABS: ALBUMIN 2.5 g/dL (3.5-5.0); ALKALINE PHOSPHATASE 101 U/L (38-126); ANION GAP 6.3 MEQ/L (5-15); BLOOD UREA NITROGEN 10 mg/dL (7-17); CHLORIDE 105 mmol/L (98-107); Calcium 7.9 mg/dL (8.4-10.2); Carbon Dioxide 29 mmol/L (22-30); Creatinine 1 1.04 mg/dL (0.52-1.04); EST GLOMERULAR FILTRATION RATE > 60.0 ML/MIN; Glucose 92 mg/dL (74-106); Potassium 3.8 mmol/L (3.5-5.1); SGOT/AST 48 U/L (14-36); SGPT/ALT 15 U/L (0-35); SODIUM 137 mmol/L (137-145); Total Protein 7.3 g/dL (6.3-8.2)
[2022-06-22] MEDS: Zofran 4 MG/2 ML VIAL IV PRN ×3 (08:22→22:51)
[2022-06-22] MEDS ORDERED: OXYCODONE HCL 5 MG PO PRN (08:40)
[2022-06-22] MEDS ORDERED: NON-FORMULARY ITEM (Potassium Chloride [Potassium Chloride] 40 MEQ/15 ML Liquid) PO SCH (08:45)
--- NOTE | 2022-06-22 09:17 | PCM.HP ---
History of Present Illness - Chief Complaint Chief Complaint: nausea, vomiting, abdominal pain for 2-3 days History of Present Illness: is a 42 year old female. patient who had a bowel resection on 04/03/2022 and had out side facility. Postoperatively she has had some issues including w eight loss and incision infection. Patient has a left upper extremity PICC line placed and a left intra-abdominal/subcutaneous drain placed. In addition she had a nasojejunal feeding tube placed because she had had significant weight loss. Today, the patient was having abdominal pain with vomiting then was gagging to the point where she dislodged the distal tip of the feeding tube. The tube that was in the hypopharynx was gagging her. Because of the multiple episodes of gagging, the patient became stressed and she had pseudoseizure. Patient admits to having pseudoseizures in the past when she is under a great deal of stress. Patient has significant anxiety issues as well as ulcer disease and gastroesophageal reflux disease. Patient arrives to the emergency department by EMS gagging and under distress because the distal portion of the feeding tube was dislodged with the proximal portion gagging her in the back of the throat. Timing/Duration: today Severity: moderate Associated Symptoms: nausea, vomiting, abdominal pain, No shortness of breath (Mild diffuse), No chest pain - Review of Systems Constitutional: No Fever, No Chills Eyes: No Symptoms Ears, Nose, & Throat: No Symptoms Respiratory: No Cough, No Short Of Breath Cardiac: No Chest Pain, No Edema, No Syncope Abdominal/Gastrointestinal: Abdominal Pain, Nausea, Vomiting, No Diarrhea Genitourinary Symptoms: No Dysuria Musculoskeletal: No Back Pain, No Neck Pain Skin: No Rash Neurological: No Dizziness, No Focal Weakness, No Sensory Changes Psychological: No Symptoms Endocrine: No Symptoms Hematologic/Lymphatic: No Symptoms Immunological/Allergic: No Symptoms Medications & Allergies Home Medications: Home Medication List Cyanocobalamin 1000 Mcg/ml [Cyanocobalamin B-12 1000 MCG/ML] 1,000 mcg IJ DIRECTIONS UNKNOWN 05/14/22 [History Confirmed 06/22/22] Ergocalciferol (Vitamin D2) [Vitamin D2] 50,000 unit PO Q7D 05/14/22 [History Confirmed 06/22/22] Oxycodone HCl 5 mg PO Q4HPRN PRN 05/14/22 [History Confirmed 06/22/22] Fluconazole 200 mg PO DAILY 06/21/22 [History Confirmed 06/22/22] Minocycline HCl 1 ea DAILY 06/21/22 [History Confirmed 06/22/22] Potassium Chloride 40 meq PO UD 06/21/22 [History Confirmed 06/21/22] Pyridoxine HCl (Vitamin B6) [Vitamin B-6] 220 mg DAILY 06/21/22 [History Confirmed 06/22/22] Vitamin A Palmitate [Vitamin A] 3,000 units DAILY 06/21/22 [History Confirmed 06/22/22] Zinc Gluconate [Zinc] 50 mg PO DAILY 06/21/22 [History Confirmed 06/22/22] Allergies/Adverse Reactions: Allergies Allergy/AdvReac Type Severity Reaction Status Date / Time acetaminophen [From Tylenol] Allergy Severe Swelling Verified 06/21/22 22:42 of Tongue and Lips hydrocodone [From Lortab] Allergy Severe Swelling Verified 06/21/22 22:42 of Tongue and Lips natalizumab [From Tysabri] Allergy Severe Hives Verified 06/21/22 22:42 onion Allergy Severe Swelling Verified 06/21/22 22:42 of Tongue and Lips tomato Allergy Severe Tightness Verified 06/21/22 22:42 of Throat latex Allergy Intermediate Hives Verified 06/21/22 22:42 morphine AdvReac Severe Verified 06/21/22 22:42 - Past Medical History Past Medical History: Yes Neurological History: Migraines, Other ENT History: No Pertinent History Cardiac History: No Pertinent History Respiratory History: No Pertinent History Endocrine Medical History: No Pertinent History Musculoskelatal History: No Pertinent History GI Medical History: Crohns Disease, GERD, Ulcer History: No Pertinent History Pyscho-Social History: Anxiety, Depression Reproductive Disorders: Fibroids, Uterine Cancer Comment: unknown source of acute kidney failure 04/28/2022. 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 - Female History Hx Last Menstrual Period: HYSTER Are you now?: No (hysterectomy) - Past Surgical History Past Surgical History: Yes Neuro Surgical History: No Pertinent History Cardiac History: No Pertinent History Respiratory Surgery: No Pertinent History GI Surgical History: Cholecystectomy, Other Genitourinary Surgical Hx: No Pertinent History Musculskeletal Surgical Hx: Orthopedic Surgery Female Surgical History: Hysterectomy, Dilation & Curettage, Other Other Surgical History: small intestine resect 4-5 times, pins R foot, multiple port placement - Social History Smoking Status: Former smoker Exposure to second hand smoke: Yes Alcohol: None Drug Use: marijuana - Physical Exam Vital Signs: Vital Signs - 24 hr Temp Pulse Resp BP Pulse Ox 06/22/22 06:29 96.6 F 69 16 114/63 98 06/22/22 02:24 96.9 F 85 18 93/51 95 06/21/22 22:00 96.7 F 111 H 18 109/55 06/21/22 20:05 101 H 16 109/67 100 06/21/22 19:06 103 H 109/70 100 06/21/22 18:45 106 H 106/55 99 06/21/22 17:06 100 H 96/77 98 06/21/22 15:43 96.4 F 120 H 18 101/65 100 General Appearance: no apparent distress, mild distress, alert Neurologic Exam: alert, oriented x 3, cooperative, normal mood/affect, sensation nml, No motor deficits Eye Exam: PERRL/EOMI, eyes nml inspection Ears, Nose, Throat Exam: normal ENT inspection, TMs normal, pharynx normal, moist mucous membranes Neck Exam: normal inspection, non-tender, supple, full range of motion Respiratory Exam: normal breath sounds, lungs clear, No respiratory distress Cardiovascular Exam: regular rate/rhythm, normal heart sounds, normal peripheral pulses Gastrointestinal/Abdomen Exam: soft, tenderness, No distention, No mass Back Exam: normal inspection, normal range of motion, No CVA tenderness, No vertebral tenderness Extremity Exam: normal inspection, normal range of motion, pelvis stable Skin Exam: normal color, warm, dry, No rash Lymphatic Exam: No adenopathy Results - Labs Lab/Micro Results: Lab Results-Last 24 Hours 06/21/22 06/21/22 06/21/22 Range/Units 15:52 16:00 16:00 WBC 8.6 (4.0-10.5) x10^3/uL RBC 3.39 L (4.1-5.4) x10^6/uL Hgb 8.8 L (12.0-16.0) g/dL Hct 29.8 L (35-47) % MCV 87.9 (78-100) fL MCH 26.0 (26-32) pg MCHC 29.5 L (32-36) g/dL RDW 15.9 H (11.5-14.0) % Plt Count 268 (150-450) x10^3/uL MPV 10.1 (7.5-11.0) fL Gran % 77.2 H (36.0-66.0) % Immature Gran % (Auto) 0.2 (0.00-0.4) % Nucleat RBC Rel Count 0.0 (0.00-0.1) % Eos # (Auto) 0.02 (0-0.5) x10^3/uL Immature Gran # (Auto) 0.02 (0.00-0.03) x10^3u/L Absolute Lymphs (auto) 0.93 L (1.0-4.6) x10^3/uL Absolute Monos (auto) 0.97 (0.0-1.3) x10^3/uL Absolute Nucleated RBC 0.00 (0.00-0.01) x10^3u/L Lymphocytes % 10.9 L (24.0-44.0) % Monocytes % 11.3 (0.0-12.0) % Eosinophils % 0.2 (0.00-5.0) % Basophils % 0.2 (0.0-0.4) % Absolute Granulocytes 6.60 (1.4-6.9) x10^3/uL Basophils # 0.02 (0-0.4) x10^3/uL Sodium 139 (137-145) mmol/L Potassium 4.0 (3.5-5.1) mmol/L Chloride 102 (98-107) mmol/L Carbon Dioxide 29 (22-30) mmol/L Anion Gap 11.9 (5-15) MEQ/L BUN 13 (7-17) mg/dL Creatinine 0.99 (0.52-1.04) mg/dL Estimated GFR > 60.0 ML/MIN Glucose 105 (74-106) mg/dL Lactic Acid 1.0 (0.4-2.0) Calcium 8.1 L (8.4-10.2) mg/dL Total Bilirubin 0.50 (0.2-1.3) mg/dL AST 43 H (14-36) U/L ALT 14 (0-35) U/L Alkaline Phosphatase 129 H (38-126) U/L Serum Total Protein 8.7 H (6.3-8.2) g/dL Albumin 3.2 L (3.5-5.0) g/dL Amylase 67 (30-110) U/L Lipase 71 (23-300) U/L Urinalys Dipstick Clnc Urine Color (YELLOW) Urine Appearance (CLEAR) Urine pH (5-6) Ur Specific [place] (1.005-1.025) POC Urine Protein Conf (Negative) Urine Ketones (NEGATIVE) Urine Nitrite (NEGATIVE) Urine Bilirubin (NEGATIVE) Urine Urobilinogen (0-1) mg/dL Urine Leukocytes (NEGATIVE) Urine WBC (Auto) (0-5) /HPF Urine RBC (Auto) (0-2) /HPF U Epithel Cells (Auto) (FEW) /HPF Urine Bacteria (Auto) (NEGATIVE) /HPF Urine RBC (0-5) Alonso/ul Urine Mucus (Auto) (NEGATIVE) /HPF Ur Culture Indicated? Urine Glucose (NEGATIVE) mg/dL Influenza Type A Ag (NEGATIVE) Influenza Type B Ag (NEGATIVE) RSV (PCR) (Negative) SARS-CoV-2 (PCR) (NEGATIVE) 06/21/22 06/21/22 06/21/22 Range/Units 16:58 17:14 19:21 WBC (4.0-10.5) x10^3/uL RBC (4.1-5.4) x10^6/uL Hgb (12.0-16.0) g/dL Hct (35-47) % MCV (78-100) fL MCH (26-32) pg MCHC (32-36) g/dL RDW (11.5-14.0) % Plt Count (150-450) x10^3/uL MPV (7.5-11.0) fL Gran % (36.0-66.0) % Immature Gran % (Auto) (0.00-0.4) % Nucleat RBC Rel Count (0.00-0.1) % Eos # (Auto) (0-0.5) x10^3/uL Immature Gran # (Auto) (0.00-0.03) x10^3u/L Absolute Lymphs (auto) (1.0-4.6) x10^3/uL Absolute Monos (auto) (0.0-1.3) x10^3/uL Absolute Nucleated RBC (0.00-0.01) x10^3u/L Lymphocytes % (24.0-44.0) % Monocytes % (0.0-12.0) % Eosinophils % (0.00-5.0) % Basophils % (0.0-0.4) % Absolute Granulocytes (1.4-6.9) x10^3/uL Basophils # (0-0.4) x10^3/uL Sodium (137-145) mmol/L Potassium (3.5-5.1) mmol/L Chloride (98-107) mmol/L Carbon Dioxide (22-30) mmol/L Anion Gap (5-15) MEQ/L BUN (7-17) mg/dL Creatinine (0.52-1.04) mg/dL Estimated GFR ML/MIN Glucose (74-106) mg/dL Lactic Acid 1.8 (0.4-2.0) Calcium (8.4-10.2) mg/dL Total Bilirubin (0.2-1.3) mg/dL AST (14-36) U/L ALT (0-35) U/L Alkaline Phosphatase (38-126) U/L Serum Total Protein (6.3-8.2) g/dL Albumin (3.5-5.0) g/dL Amylase (30-110) U/L Lipase (23-300) U/L Urinalys Dipstick Clnc MAIN LAB Urine Color YELLOW (YELLOW) Urine Appearance CLEAR (CLEAR) Urine pH 7.0 (5-6) Ur Specific [place] 1.020 (1.005-1.025) POC Urine Protein Conf 100 (Negative) Urine Ketones NEGATIVE (NEGATIVE) Urine Nitrite NEGATIVE (NEGATIVE) Urine Bilirubin NEGATIVE (NEGATIVE) Urine Urobilinogen 0.2 (0-1) mg/dL Urine Leukocytes TRACE (NEGATIVE) Urine WBC (Auto) 6-10 (0-5) /HPF Urine RBC (Auto) 3-5 (0-2) /HPF U Epithel Cells (Auto) RARE (FEW) /HPF Urine Bacteria (Auto) NONE SEEN (NEGATIVE) /HPF Urine RBC TRACE-LYSED (0-5) Alonso/ul Urine Mucus (Auto) SLIGHT (NEGATIVE) /HPF Ur Culture Indicated? YES Urine Glucose NEGATIVE (NEGATIVE) mg/dL Influenza Type A Ag NEGATIVE (NEGATIVE) Influenza Type B Ag NEGATIVE (NEGATIVE) RSV (PCR) NEGATIVE (Negative) SARS-CoV-2 (PCR) NEGATIVE (NEGATIVE) 06/22/22 06/22/22 Range/Units 06:11 06:11 WBC 4.8 (4.0-10.5) x10^3/uL RBC 2.80 L (4.1-5.4) x10^6/uL Hgb 7.2 L (12.0-16.0) g/dL Hct 24.8 L (35-47) % MCV 88.6 (78-100) fL MCH 25.7 L (26-32) pg MCHC 29.0 L (32-36) g/dL RDW 15.9 H (11.5-14.0) % Plt Count 243 (150-450) x10^3/uL MPV 10.8 (7.5-11.0) fL Gran % 64.6 (36.0-66.0) % Immature Gran % (Auto) 0.2 (0.00-0.4) % Nucleat RBC Rel Count 0.0 (0.00-0.1) % Eos # (Auto) 0.13 (0-0.5) x10^3/uL Immature Gran # (Auto) 0.01 (0.00-0.03) x10^3u/L Absolute Lymphs (auto) 0.85 L (1.0-4.6) x10^3/uL Absolute Monos (auto) 0.70 (0.0-1.3) x10^3/uL Absolute Nucleated RBC 0.00 (0.00-0.01) x10^3u/L Lymphocytes % 17.7 L (24.0-44.0) % Monocytes % 14.6 H (0.0-12.0) % Eosinophils % 2.7 (0.00-5.0) % Basophils % 0.2 (0.0-0.4) % Absolute Granulocytes 3.10 (1.4-6.9) x10^3/uL Basophils # 0.01 (0-0.4) x10^3/uL Sodium 137 (137-145) mmol/L Potassium 3.8 (3.5-5.1) mmol/L Chloride 105 (98-107) mmol/L Carbon Dioxide 29 (22-30) mmol/L Anion Gap 6.3 (5-15) MEQ/L BUN 10 (7-17) mg/dL Creatinine 1.04 (0.52-1.04) mg/dL Estimated GFR > 60.0 ML/MIN Glucose 92 (74-106) mg/dL Lactic Acid (0.4-2.0) Calcium 7.9 L (8.4-10.2) mg/dL Total Bilirubin 0.80 (0.2-1.3) mg/dL AST 48 H (14-36) U/L ALT 15 (0-35) U/L Alkaline Phosphatase 101 (38-126) U/L Serum Total Protein 7.3 (6.3-8.2) g/dL Albumin 2.5 L (3.5-5.0) g/dL Amylase (30-110) U/L Lipase (23-300) U/L Urinalys Dipstick Clnc Urine Color (YELLOW) Urine Appearance (CLEAR) Urine pH (5-6) Ur Specific [place] (1.005-1.025) POC Urine Protein Conf (Negative) Urine Ketones (NEGATIVE) Urine Nitrite (NEGATIVE) Urine Bilirubin (NEGATIVE) Urine Urobilinogen (0-1) mg/dL Urine Leukocytes (NEGATIVE) Urine WBC (Auto) (0-5) /HPF Urine RBC (Auto) (0-2) /HPF U Epithel Cells (Auto) (FEW) /HPF Urine Bacteria (Auto) (NEGATIVE) /HPF Urine RBC (0-5) Alonso/ul Urine Mucus (Auto) (NEGATIVE) /HPF Ur Culture Indicated? Urine Glucose (NEGATIVE) mg/dL Influenza Type A Ag (NEGATIVE) Influenza Type B Ag (NEGATIVE) RSV (PCR) (Negative) SARS-CoV-2 (PCR) (NEGATIVE) - Radiology Impressions Radiology Exams & Impressions: Radiology Procedures Category Date Time Status ABDOMEN AND PELVIS W/0 CONTRAS [CT] Stat Exams 06/21/22 15:52 Completed HEAD WITHOUT CONTRAST [CT] Stat Exams 06/21/22 15:[address]/ABDOMEN AND PELVIS W/0 CONTRAS Indication: Vomiting following NG tube removal. Multiple contiguous axial images obtained through the abdomen and pelvis without contrast. Comparison: April 16, 2022 Lung bases demonstrates new 2 small left lower lobe cavitary lesions, possible septic emboli in the right clinical setting. No effusion. Heart not enlarged with new small anterior pericardial effusion/thickening. Noncontrasted stomach and bowel loops appear nonobstructed. New left paraumbilical percutaneous catheter with pigtail anterior midabdomen with there is new enterocolonic anastomosis with moderate mesenteric induration. Tiny subhepatic free fluid but no suspicious walled off fluid collection or free air. Again previous cholecystectomy. Spleen is now enlarged measuring 13 cm. Mild diffuse fatty liver. Remaining pancreas, adrenal glands, kidneys, ureters, bladder, and aorta are unremarkable for noncontrast exam. Osseous structures intact. Impression: 1. New small left lower lobe cavitary lesions. Rule out septic emboli. 2. Interval enterocolonic anastomosis with new surrounding mesenteric induration and percutaneous pigtail catheter. Small subhepatic fluid but no wall left lobe collection or free air. 3. New anterior pericardial effusion/thickening. Echocardiogram may yield further information. 4. Incidental fatty liver and splenomegaly. Assessment/Plan (1) Crohn's disease (regional enteritis) Current Visit: Yes Status: Acute Qualifiers: Gastrointestinal tract location: small and large intestine Digestive disease complication type: with fistula Qualified Code(s): K50.813 - Crohn's disease of both small and large intestine with fistula Assessment & Plan: Chief Complaint Diagnosis Mucocutaneous Fistula, ABD pain Allergies Allergy/AdvReac Type Severity Reaction Status Date / Time acetaminophen [From Tylenol] Allergy Severe Swelling Verified 06/21/22 22:42 of Tongue and Lips hydrocodone [From Lortab] Allergy Severe Swelling Verified 06/21/22 22:42 of Tongue and Lips natalizumab [From Tysabri] Allergy Severe Hives Verified 06/21/22 22:42 onion Allergy Severe Swelling Verified 06/21/22 22:42 of Tongue and Lips tomato Allergy Severe Tightness Verified 06/21/22 22:42 of Throat latex Allergy Intermediate Hives Verified 06/21/22 22:42 morphine AdvReac Severe Verified 06/21/22 22:42 Vital Signs (Last 24 hours) Temp Pulse Resp BP Pulse Ox 06/22/22 06:29 96.6 F 69 16 114/63 98 06/22/22 02:24 96.9 F 85 18 93/51 95 06/21/22 22:00 96.7 F 111 H 18 109/55 06/21/22 20:05 101 H 16 109/67 100 06/21/22 19:06 103 H 109/70 100 06/21/22 18:45 106 H 106/55 99 06/21/22 17:06 100 H 96/77 98 06/21/22 15:43 96.4 F 120 H 18 101/65 100 Home Medications Medication Instructions Recorded Confirmed Last Taken Type Fluconazole 200 mg PO DAILY 06/21/22 06/22/22 06/21/22 History Minocycline HCl 1 ea DAILY 06/21/22 06/22/22 06/21/22 History Potassium Chloride 40 meq PO UD 06/21/22 06/21/22 06/13/22 History Pyridoxine HCl (Vitamin B6) 220 mg DAILY 06/21/22 06/22/22 06/21/22 History [Vitamin B-6] Vitamin A Palmitate [Vitamin A] 3,000 units DAILY 06/21/22 06/22/22 06/21/22 History Zinc Gluconate [Zinc] 50 mg PO DAILY 06/21/22 06/22/22 06/21/22 History Current Medications Generic Name Dose Route Start Last Admin Trade Name Freq PRN Reason Stop Dose Admin Cyanocobalamin 1,000 mcg 06/29/22 10:00 Cyanocobalamin 1000 Mcg/Ml Vial IJ 07/29/22 09:59 Q30D [facility] Ergocalciferol 50,000 unit 06/25/22 10:00 Ergocalciferol (Vitamin D2) 50,000 Unit Capsule PO 07/25/22 09:59 Q7D [facility] Fluconazole 200 mg 06/22/22 10:00 Fluconazole 100 Mg Tablet PO 07/22/22 09:59 DAILY [facility] Hydromorphone HCl 1 mg 06/21/22 21:15 06/22/22 06:14 Hydromorphone 1 Mg/1ml Inj 1 Mg/Ml Syringe IV 06/26/22 21:14 1 mg Q4H PRN PRN Administration PAIN Sodium Chloride 1,000 mls @ 100 mls/hr 06/21/22 21:15 06/21/22 21:49 Sodium Chloride 0.9% 1000 Ml IV 07/21/22 21:14 100 mls/hr .Q10H [facility] Administration Piperacillin Sod/Tazobactam 100 mls @ 200 mls/hr 06/22/22 00:00 06/22/22 06:11 Sod 3.375 gm/ Sodium Chloride IV 06/25/22 00:00 200 mls/hr Q6HT [facility] Administration Minocycline HCl 100 mg 06/22/22 10:00 Minocycline Hcl 100 Mg Capsule PO 07/22/22 09:59 DAILY [facility] Non-Formulary Medication 40 meq 06/22/22 08:45 Potassium Chloride [Potassium Chloride] PO 07/22/22 08:44 UD [facility] Non-Formulary Medication 3,000 units 06/22/22 10:00 Vitamin A Palmitate [Vitamin A] PO 07/22/22 09:59 DAILY [facility] Ondansetron HCl 4 mg 06/21/22 21:15 06/22/22 08:22 Ondansetron Hcl 4 Mg/2 Ml Vial IV 07/21/22 21:14 4 mg Q6H PRN PRN Administration NAUSEA/VOMITING Oxycodone HCl 5 mg 06/22/22 08:44 Oxycodone Hcl 5 Mg Ir Tab PO 06/27/22 08:43 Q4HPRN PRN PAIN Pantoprazole Sodium 40 mg 06/21/22 21:15 06/21/22 22:03 Pantoprazole 40 Mg Vial IV 07/21/22 21:14 40 mg Q24H [facility] Administration Pyridoxine HCl 200 mg 06/22/22 10:00 Pyridoxine Hcl 100 Mg Tablet PO 07/22/22 09:59 DAILY [facility] Zinc Gluconate 50 mg 06/22/22 10:00 Zinc Gluconate 50 Mg Tablet PO 07/22/22 09:59 DAILY [facility] Discontinued Medications Generic Name Dose Route Start Last Admin Trade Name Freq PRN Reason Stop Dose Admin Acetaminophen 650 mg 06/21/22 21:15 Acetaminophen 325 Mg Tablet PO 07/21/22 21:14 Q4H PRN PRN PAIN, FEVER, HEADACHE Hydromorphone HCl 1 mg 06/21/22 15:52 06/21/22 16:29 Hydromorphone 1 Mg/1ml Inj 1 Mg/Ml Syringe IV 06/21/22 15:53 1 mg STAT ONE Administration Hydromorphone HCl Confirm 06/21/22 16:26 Hydromorphone 1 Mg/1ml Inj 1 Mg/Ml Syringe Administered 06/21/22 16:27 Dose 1 mg .ROUTE .STK-MED ONE Sodium Chloride 1,000 mls @ 999 mls/hr 06/21/22 15:52 06/21/22 17:46 Sodium Chloride 0.9% 1000 Ml IV 06/21/22 16:52 Infused .Q1H1M STA Infusion Sodium Chloride Confirm 06/21/22 16:26 Sodium Chloride 0.9% 1000 Ml Administered 06/21/22 16:27 Dose 1,000 mls @ ud .ROUTE .STK-MED ONE Piperacillin Sod/Tazobactam 100 mls @ 200 mls/hr 06/21/22 19:15 06/21/22 19:35 Sod 3.375 gm/ Sodium Chloride IV 06/21/22 19:44 200 mls/hr STAT ONE Administration Sodium Chloride Confirm 06/21/22 19:34 Sodium Chloride 0.9% Administered 06/21/22 19:35 Dose 100 mls @ ud .ROUTE .STK-MED ONE Sodium Chloride Confirm 06/21/22 19:37 Sodium Chloride 100ml Mini-Bag Plus Administered 06/21/22 19:38 Dose 100 mls @ ud IV .STK-MED ONE Sodium Chloride Confirm 06/22/22 00:03 Sodium Chloride 100ml Mini-Bag Plus Administered 06/22/22 00:04 Dose 100 mls @ ud IV .STK-MED ONE Sodium Chloride Confirm 06/22/22 05:36 Sodium Chloride 100ml Mini-Bag Plus Administered 06/22/22 05:37 Dose 100 mls @ ud IV .STK-MED ONE Ondansetron HCl 4 mg 06/21/22 15:52 06/21/22 16:29 Ondansetron Hcl 4 Mg/2 Ml Vial IV 06/21/22 15:53 4 mg STAT ONE Administration Ondansetron HCl Confirm 06/21/22 16:26 Ondansetron Hcl 4 Mg/2 Ml Vial Administered 06/21/22 16:27 Dose 4 mg .ROUTE .STK-MED ONE Piperacillin Sod/Tazobactam Sod Confirm 06/21/22 19:33 Piperacillin/Tazobactam Sodium 3.375 Gm Vial Administered 06/21/22 19:34 Dose 3.375 gm IV .STK-MED ONE Piperacillin Sod/Tazobactam Sod Confirm 06/22/22 00:03 Piperacillin/Tazobactam Sodium 3.375 Gm Vial Administered 06/22/22 00:04 Dose 3.375 gm IV .STK-MED ONE Piperacillin Sod/Tazobactam Sod Confirm 06/22/22 05:36 Piperacillin/Tazobactam Sodium 3.375 Gm Vial Administered 06/22/22 05:37 Dose 3.375 gm IV .STK-MED ONE Sterile Water Confirm 06/21/22 21:41 Water For Injection,Sterile 10 Ml Vial Administered 06/21/22 21:42 Dose 10 ml IJ .STK-MED ONE Intake & Output (Last 24 hours) 06/19/22 06/20/22 06/21/22 06/22/22 11:59 11:59 11:59 11:59 Output Total 50 Balance -50 Weight 70 kg Microbiology Results (Last 24 hours) 06/21/22 17:14 Urine, Void Urine Culture - Pending Laboratory Results (Last 24 hours) 06/22/22 06/22/22 06/21/22 06:11 06:11 19:21 WBC 4.8 RBC 2.80 L Hgb 7.2 L Hct 24.8 L MCV 88.6 MCH 25.7 L MCHC 29.0 L RDW 15.9 H Plt Count 243 MPV 10.8 Gran % 64.6 Immature Gran % (Auto) 0.2 Nucleat RBC Rel Count 0.0 Eos # (Auto) 0.13 Immature Gran # (Auto) 0.01 Absolute Lymphs (auto) 0.85 L Absolute Monos (auto) 0.70 Absolute Nucleated RBC 0.00 Lymphocytes % 17.7 L Monocytes % 14.6 H Eosinophils % 2.7 Basophils % 0.2 Absolute Granulocytes 3.10 Basophils # 0.01 Sodium 137 Potassium 3.8 Chloride 105 Carbon Dioxide 29 Anion Gap 6.3 BUN 10 Creatinine 1.04 Estimated GFR > 60.0 Glucose 92 Lactic Acid Calcium 7.9 L Total Bilirubin 0.80 AST 48 H ALT 15 Alkaline Phosphatase 101 Serum Total Protein 7.3 Albumin 2.5 L Amylase Lipase Urinalys Dipstick Clnc Urine Color Urine Appearance Urine pH Ur Specific [place] POC Urine Protein Conf Urine Ketones Urine Nitrite Urine Bilirubin Urine Urobilinogen Urine Leukocytes Urine WBC (Auto) Urine RBC (Auto) U Epithel Cells (Auto) Urine Bacteria (Auto) Urine RBC Urine Mucus (Auto) Ur Culture Indicated? Urine Glucose Influenza Type A Ag NEGATIVE Influenza Type B Ag NEGATIVE RSV (PCR) NEGATIVE SARS-CoV-2 (PCR) NEGATIVE 06/21/22 06/21/22 06/21/22 17:14 16:58 16:00 WBC RBC Hgb Hct MCV MCH MCHC RDW Plt Count MPV Gran % Immature Gran % (Auto) Nucleat RBC Rel Count Eos # (Auto) Immature Gran # (Auto) Absolute Lymphs (auto) Absolute Monos (auto) Absolute Nucleated RBC Lymphocytes % Monocytes % Eosinophils % Basophils % Absolute Granulocytes Basophils # Sodium 139 Potassium 4.0 Chloride 102 Carbon Dioxide 29 Anion Gap 11.9 BUN 13 Creatinine 0.99 Estimated GFR > 60.0 Glucose 105 Lactic Acid 1.8 Calcium 8.1 L Total Bilirubin 0.50 AST 43 H ALT 14 Alkaline Phosphatase 129 H Serum Total Protein 8.7 H Albumin 3.2 L Amylase 67 Lipase 71 Urinalys Dipstick Clnc MAIN LAB Urine Color YELLOW Urine Appearance CLEAR Urine pH 7.0 Ur Specific [place] 1.020 POC Urine Protein Conf 100 Urine Ketones NEGATIVE Urine Nitrite NEGATIVE Urine Bilirubin NEGATIVE Urine Urobilinogen 0.2 Urine Leukocytes TRACE Urine WBC (Auto) 6-10 Urine RBC (Auto) 3-5 U Epithel Cells (Auto) RARE Urine Bacteria (Auto) NONE SEEN Urine RBC TRACE-LYSED Urine Mucus (Auto) SLIGHT Ur Culture Indicated? YES Urine Glucose NEGATIVE Influenza Type A Ag Influenza Type B Ag RSV (PCR) SARS-CoV-2 (PCR) 06/21/22 06/21/22 16:00 15:52 WBC 8.6 RBC 3.39 L Hgb 8.8 L Hct 29.8 L MCV 87.9 MCH 26.0 MCHC 29.5 L RDW 15.9 H Plt Count 268 MPV 10.1 Gran % 77.2 H Immature Gran % (Auto) 0.2 Nucleat RBC Rel Count 0.0 Eos # (Auto) 0.02 Immature Gran # (Auto) 0.02 Absolute Lymphs (auto) 0.93 L Absolute Monos (auto) 0.97 Absolute Nucleated RBC 0.00 Lymphocytes % 10.9 L Monocytes % 11.3 Eosinophils % 0.2 Basophils % 0.2 Absolute Granulocytes 6.60 Basophils # 0.02 Sodium Potassium Chloride Carbon Dioxide Anion Gap BUN Creatinine Estimated GFR Glucose Lactic Acid 1.0 Calcium Total Bilirubin AST ALT Alkaline Phosphatase Serum Total Protein Albumin Amylase Lipase Urinalys Dipstick Clnc Urine Color Urine Appearance Urine pH Ur Specific [place] POC Urine Protein Conf Urine Ketones Urine Nitrite Urine Bilirubin Urine Urobilinogen Urine Leukocytes Urine WBC (Auto) Urine RBC (Auto) U Epithel Cells (Auto) Urine Bacteria (Auto) Urine RBC Urine Mucus (Auto) Ur Culture Indicated? Urine Glucose Influenza Type A Ag Influenza Type B Ag RSV (PCR) SARS-CoV-2 (PCR) Orders (Last 24 hours) Category Date Time Status Bedrest with BRP/BSC TOLERATED Activity 06/21/22 21:15 Active Admit as Inpatient ROUTINE Care 06/21/22 21:15 Completed Code Status Order ROUTINE Care 06/21/22 21:15 Completed IV Insertion STAT Care 06/21/22 15:52 Completed Weight,Daily 0600 Care 06/21/22 21:15 Active Infection Control Consult ROUTINE Cons 06/23/22 09:00 Active Merchandise Director/Discharge Plan ROUTINE Cons 06/22/22 09:00 Active Merchandise Director/Discharge Plan ROUTINE Cons 06/22/22 09:00 Active Clear Liquid Diet 06/22/22 Breakfast Active Nutritional Admission Screen ONCE Diet 06/22/22 08:00 Active Nutritional Consult ROUTINE Diet 06/21/22 21:15 Active Discharge Planning,Consult Routine Discharge 06/21/22 21:15 Active ABDOMEN AND PELVIS W/0 CONTRAS [CT] Stat Exams 06/21/22 15:52 Completed HEAD WITHOUT CONTRAST [CT] Stat Exams 06/21/22 15:53 Completed AMYLASE Stat Lab 06/21/22 16:00 Completed CBC W DIFF AM.LAB Lab 06/22/22 06:11 Completed CBC W DIFF Stat Lab 06/21/22 16:00 Completed CMP AM.LAB Lab 06/22/22 06:11 Completed CMP Stat Lab 06/21/22 16:00 Completed COVID/FLU/RSV Panel Stat Lab 06/21/22 19:21 Completed CULTURE,URINE Stat Lab 06/21/22 17:14 Received LIPASE Stat Lab 06/21/22 16:00 Completed Lactic Acid Stat Lab 06/21/22 15:52 Completed Lactic Acid Stat Lab 06/21/22 16:58 Completed UA W/RFX CULTURE Stat Lab 06/21/22 17:14 Completed Acetaminophen 325 mg [Tylenol 325 mg] Med 06/21/22 21:15 Discontinued 650 mg PO Q4H PRN PRN Cyanocobalamin 1000 Mcg/ml [Cyanocobalamin B-12 1000 Med 06/29/22 10:00 Active MCG/ML] 1,000 mcg IJ Q30D Ergocalciferol (Vitamin D2) [Vitamin D2] Med 06/25/22 10:00 Active 50,000 unit PO Q7D Fluconazole 100 mg [Diflucan 100 MG] Med 06/22/22 10:00 Active 200 mg PO DAILY Hydromorphone 1 mg/1Ml Inj [Hydromorphone 1 mg/ml Med 06/21/22 16:26 Discontinued Injection] 1 mg .ROUTE .STK-MED ONE Hydromorphone 1 mg/1Ml Inj [Hydromorphone 1 mg/ml Med 06/21/22 21:15 Active Injection] 1 mg IV Q4H PRN PRN Hydromorphone 1 mg/1Ml Inj [Hydromorphone 1 mg/ml Med 06/21/22 15:52 Discontinued Injection] 1 mg IV STAT ONE Minocycline HCl Med 06/22/22 10:00 Active 100 mg PO DAILY NaCl 0.9% 100 ml Mini-Bag Plus [Sodium Chloride 100ML Med 06/21/22 19:37 Discontinued MINI-BAG PLUS] 100 ml IV UD NaCl 0.9% 100 ml Mini-Bag Plus [Sodium Chloride 100ML Med 06/22/22 00:03 Discontinued MINI-BAG PLUS] 100 ml IV UD NaCl 0.9% 100 ml Mini-Bag Plus [Sodium Chloride 100ML Med 06/22/22 05:36 Discontinued MINI-BAG PLUS] 100 ml IV UD NaCl 0.9% 1000 ml [Sodium Chloride 0.9% 1000 ML] 1,000 Med 06/21/22 16:26 Discontinued ml .ROUTE UD NaCl 0.9% 1000 ml [Sodium Chloride 0.9% 1000 ML] 1,000 Med 06/21/22 21:15 Active ml IV 100 mls/hr NaCl 0.9% 1000 ml [Sodium Chloride 0.9% 1000 ML] 1,000 Med 06/21/22 15:52 Discontinued ml IV 999 mls/hr NaCl 0.9% [Sodium Chloride 0.9%] 100 ml Med 06/21/22 19:34 Discontinued .ROUTE UD Ondansetron HCl 4 mg/2 ml [Zofran 4 MG/2 ML VIAL] Med 06/21/22 16:26 Discontinued 4 mg .ROUTE .STK-MED ONE Ondansetron HCl 4 mg/2 ml [Zofran 4 MG/2 ML VIAL] Med 06/21/22 21:15 Active 4 mg IV Q6H PRN PRN Ondansetron HCl 4 mg/2 ml [Zofran 4 MG/2 ML VIAL] Med 06/21/22 15:52 Discontinued 4 mg IV STAT ONE Oxycodone HCl 5 mg Ir [Oxy-IR 5 MG] Med 06/22/22 08:44 Active 5 mg PO Q4HPRN PRN Pantoprazole 40 mg [Protonix 40 mg IV] Med 06/21/22 21:15 Active 40 mg IV Q24H Piperacillin/Tazobactam 3.375G [Piperacillin/Tazobactam [facility] 06/21/22 19:33 Discontinued ] 3.375 gm IV .STK-MED ONE Piperacillin/Tazobactam 3.375G [Piperacillin/Tazobactam [facility] 06/22/22 00:03 Discontinued ] 3.375 gm IV .STK-MED ONE Piperacillin/Tazobactam 3.375G [Piperacillin/Tazobactam [facility] 06/22/22 05:36 Discontinued ] 3.375 gm IV .STK-MED ONE Piperacillin/Tazobactam 3.375G [Piperacillin/Tazobactam [facility] 06/22/22 00:00 Active ] 3.375 gm NaCl 0.9% 100 ml Mini-Bag Plus [Sodium Chloride 100ML MINI-BAG PLUS] 100 ml IV Q6HT Piperacillin/Tazobactam 3.375G [Piperacillin/Tazobactam [facility] 06/21/22 19:15 Discontinued ] 3.375 gm NaCl 0.9% 100 ml Mini-Bag Plus [Sodium Chloride 100ML MINI-BAG PLUS] 100 ml IV STAT Potassium Chloride [Potassium Chloride] Med 06/22/22 08:45 Ordered 40 meq PO UD Pyridoxine HCl 100 mg [Vitamin B-6 (Pyridoxine) 100 Med 06/22/22 10:00 Active MG] 200 mg PO DAILY Vitamin A Palmitate [Vitamin A] Med 06/22/22 10:00 Ordered 3,000 units PO DAILY Water For Injection,Sterile [Sterile H2O 10 ml] Med 06/21/22 21:41 Discontinued 10 ml IJ .STK-MED ONE Zinc Gluconate 50 mg [Zinc Gluconate 50 MG] Med 06/22/22 10:00 Active 50 mg PO DAILY OT Screen per Nursing Assess ONCE OT 06/22/22 09:00 Active PT Screen per Nursing Assess ONCE PT 06/22/22 08:00 Active Pulse Oximetry ROUTINE RT 06/21/22 21:[address] Screen per Nursing Assess ONCE ST 06/22/22 08:00 Active Patient Care Notes (Last 24 hours) 06/21/22 16:59 Respiratory Note by Dina Aguilar REDRAWN AND RERUN TO INSURE accuracy Initialized on 06/21/22 16:59 - END OF NOTE Code(s): K50.90 - CROHN'S DISEASE, UNSPECIFIED, WITHOUT COMPLICATIONS (2) Abdominal pain Current Visit: Yes Status: Acute Qualifiers: Abdominal location: generalized Qualified Code(s): R10.84 - Generalized abdominal pain Code(s): R10.9 - UNSPECIFIED ABDOMINAL PAIN (3) Cutaneous fistula Current Visit: Yes Status: Acute Code(s): L98.8 - OTH DISRD OF THE SKIN AND SUBCUTANEOUS TISSUE (4) Vomiting Current Visit: Yes Status: Acute Qualifiers: Vomiting type: unspecified Nausea presence: with nausea Qualified Code(s): R11.2 - Nausea with vomiting, unspecified Code(s): R11.10 - VOMITING, UNSPECIFIED (5) Hypokalemia Current Visit: No Status: Acute Code(s): E87.6 - HYPOKALEMIA
[2022-06-22] MEDS ORDERED: Klor Con PO PRN (09:24)
[2022-06-22] MEDS ORDERED: MEDICATION INTERVENTION MC SCH (09:30)
[2022-06-22] MEDS: Sodium Chloride 0.9% 1000 ML 1,000 ML IV SCH ×2 (09:52→20:55)
[2022-06-22] MEDS: Diflucan 100 MG PO SCH (09:53)
[2022-06-22] MEDS: MINOCYCLINE HCL PO SCH (09:54)
[2022-06-22] MEDS: Vitamin B-6 (Pyridoxine) 100 MG PO SCH (09:55)
[2022-06-22] MEDS: Zinc Gluconate 50 MG PO SCH (09:56)
[2022-06-22] MEDS ORDERED: FLUCONAZOLE 200 MG PO SCH (10:00)
[2022-06-22] MEDS ORDERED: VITAMIN A PALMITATE 10000 UNIT PO SCH (10:00)
[2022-06-22] MEDS ORDERED: NON-FORMULARY ITEM (Zinc Gluconate 50 MG Tablet) PO SCH (10:00)
[2022-06-22] MEDS: PROTONIX 40 MG IV IV SCH (20:55)
[2022-06-23] MEDS: Hydromorphone 1 mg/ml Injection IV PRN ×5 (05:08→21:24)
[2022-06-23] MEDS: PIPERACILLIN/TAZOBACTAM 3.375 GM in Sodium Chloride 100ML MINI-BAG PLUS 100 ML IV SCH ×4 (05:09→23:30)
[2022-06-23] MEDS: Zofran 4 MG/2 ML VIAL IV PRN ×4 (05:09→23:30)
[2022-06-23] MEDS: Sodium Chloride 0.9% 1000 ML 1,000 ML IV SCH ×2 (05:55→20:38)
[2022-06-23] MEDS: MINOCYCLINE HCL PO SCH (09:34)
[2022-06-23] MEDS: Diflucan 100 MG PO SCH (09:34)
[2022-06-23] MEDS: Vitamin B-6 (Pyridoxine) 100 MG PO SCH (09:35)
[2022-06-23] MEDS: Zinc Gluconate 50 MG PO SCH (09:35)
--- NOTE | 2022-06-23 09:45 | PCM.NOTE ---
Date and Time: 06/23/22943 Subjective Assessment: doing better - Review of Systems Constitutional: No Fever, No Chills Eyes: No Symptoms Ears, Nose, & Throat: No Symptoms Respiratory: No Cough, No Short Of Breath Cardiac: No Chest Pain, No Edema, No Syncope Abdominal/Gastrointestinal: No Abdominal Pain, No Nausea, No Vomiting, No Diarrhea Genitourinary Symptoms: No Dysuria Musculoskeletal: No Back Pain, No Neck Pain Skin: No Rash Neurological: No Dizziness, No Focal Weakness, No Sensory Changes Psychological: No Symptoms Endocrine: No Symptoms Hematologic/Lymphatic: No Symptoms Immunological/Allergic: No Symptoms Objective Exam General Appearance: no apparent distress, alert Neurologic Exam: alert, oriented x 3, cooperative, normal mood/affect, nml cerebellar function, sensation nml, No motor deficits Skin Exam: normal color, warm, dry Eye Exam: PERRL, EOMI, eyes nml inspection Ears, Nose, Throat Exam: normal ENT inspection, pharynx normal, moist mucous membranes Neck Exam: normal inspection, non-tender, supple, full range of motion Respiratory Exam: normal breath sounds, lungs clear, No respiratory distress Cardiovascular Exam: regular rate/rhythm, normal heart sounds Gastrointestinal/Abdomen Exam: soft, No tenderness, No mass Extremity Exam: normal inspection, normal range of motion Back Exam: normal inspection, normal range of motion, No CVA tenderness, No vertebral tenderness Pelvic Exam: deferred Rectal Exam: deferred OBJECTIVE DATA Vital Signs: Vital Signs - 24 hr Temp Pulse Resp BP Pulse Ox 06/23/22 08:00 97.1 F 56 L 17 89/52 95 06/23/22 04:00 96.9 F 62 19 104/52 100 06/22/22 23:57 97.7 F 65 17 98/55 98 06/22/22 20:00 98.2 F 67 18 100/55 97 06/22/22 16:00 97.7 F 62 107/60 98 06/22/22 12:00 97.5 F 81 110/59 98 Pain Assessment - Last Documented Pain Intensity 7 Pain Scale Used 0-10 Pain Scale Intake and Output: Intake & Output 06/20/22 06/21/22 06/22/22 06/23/22 11:59 11:59 11:59 11:59 Intake Total 300 1560 Output Total 125 401 Balance 175 1159 Weight 70 kg Radiology Exams: Radiology Procedures Category Date Time Status ABDOMEN AND PELVIS W/0 CONTRAS [CT] Stat Exams 06/21/22 15:52 Completed HEAD WITHOUT CONTRAST [CT] Stat Exams 06/21/22 15:53 Completed Assessment/Plan (1) Crohn's disease (regional enteritis) Current Visit: Yes Status: Acute Qualifiers: Gastrointestinal tract location: small and large intestine Digestive disease complication type: with fistula Qualified Code(s): K50.813 - Crohn's disease of both small and large intestine with fistula Assessment & Plan: Chief Complaint Diagnosis nausea, vomiting, abdominal pain for 2-3 days Allergies Allergy/AdvReac Type Severity Reaction Status Date / Time acetaminophen [From Tylenol] Allergy Severe Swelling Verified 06/21/22 22:42 of Tongue and Lips hydrocodone [From Lortab] Allergy Severe Swelling Verified 06/21/22 22:42 of Tongue and Lips natalizumab [From Tysabri] Allergy Severe Hives Verified 06/21/22 22:42 onion Allergy Severe Swelling Verified 06/21/22 22:42 of Tongue and Lips tomato Allergy Severe Tightness Verified 06/21/22 22:42 of Throat latex Allergy Intermediate Hives Verified 06/21/22 22:42 morphine AdvReac Severe Verified 06/21/22 22:42 Vital Signs (Last 24 hours) Temp Pulse Resp BP Pulse Ox 06/23/22 08:00 97.1 F 56 L 17 89/52 95 06/23/22 04:00 96.9 F 62 19 104/52 100 06/22/22 23:57 97.7 F 65 17 98/55 98 06/22/22 20:00 98.2 F 67 18 100/55 97 06/22/22 16:00 97.7 F 62 107/60 98 06/22/22 12:00 97.5 F 81 110/59 98 Home Medications Medication Instructions Recorded Confirmed Last Taken Type Fluconazole 200 mg PO DAILY 06/21/22 06/22/22 06/21/22 History Minocycline HCl 1 ea DAILY 06/21/22 06/22/22 06/21/22 History Potassium Chloride 40 meq PO UD 06/21/22 06/21/22 06/13/22 History Pyridoxine HCl (Vitamin B6) 220 mg DAILY 06/21/22 06/22/22 06/21/22 History [Vitamin B-6] Vitamin A Palmitate [Vitamin A] 3,000 units DAILY 06/21/22 06/22/22 06/21/22 History Zinc Gluconate [Zinc] 50 mg PO DAILY 06/21/22 06/22/22 06/21/22 History Current Medications Generic Name Dose Route Start Last Admin Trade Name Freq PRN Reason Stop Dose Admin Cyanocobalamin 1,000 mcg 06/29/22 10:00 Cyanocobalamin 1000 Mcg/Ml Vial IJ 07/29/22 09:59 Q30D [facility] Ergocalciferol 50,000 unit 06/25/22 10:00 Ergocalciferol (Vitamin D2) 50,000 Unit Capsule PO 07/25/22 09:59 Q7D [facility]O Fluconazole 200 mg 06/22/22 10:00 06/23/22 09:34 Fluconazole 100 Mg Tablet PO 07/22/22 09:59 200 mg DAILY [facility]O Administration Hydromorphone HCl 1 mg 06/21/22 21:15 06/23/22 09:35 Hydromorphone 1 Mg/1ml Inj 1 Mg/Ml Syringe IV 06/26/22 21:14 1 mg Q4H PRN PRN Administration PAIN Sodium Chloride 1,000 mls @ 100 mls/hr 06/21/22 21:15 06/23/22 05:55 Sodium Chloride 0.9% 1000 Ml IV 07/21/22 21:14 100 mls/hr .Q10H [facility]ULO Administration Piperacillin Sod/Tazobactam 100 mls @ 200 mls/hr 06/22/22 00:00 06/23/22 05:09 Sod 3.375 gm/ Sodium Chloride IV 06/25/22 00:00 200 mls/hr Q6HT ROMULO Administration Minocycline HCl 100 mg 06/22/22 10:00 06/23/22 09:34 Minocycline Hcl 100 Mg Capsule PO 07/22/22 09:59 100 mg DAILY [facility]ULO Administration Miscellaneous Information 1 each 06/22/22 09:30 Medication Intervention 1 Each Each 07/22/22 09:29 .RN TO CHECK WITH PT ROMULO Ondansetron HCl 4 mg 06/21/22 21:15 06/23/22 05:09 Ondansetron Hcl 4 Mg/2 Ml Vial IV 07/21/22 21:14 4 mg Q6H PRN PRN Administration NAUSEA/VOMITING Oxycodone HCl 5 mg 06/22/22 08:44 Oxycodone Hcl 5 Mg Ir Tab PO 06/27/22 08:43 Q4HPRN PRN PAIN Pantoprazole Sodium 40 mg 06/21/22 21:15 06/22/22 20:55 Pantoprazole 40 Mg Vial IV 07/21/22 21:14 40 mg Q24H ROMULO Administration Potassium Chloride 40 meq 06/22/22 09:24 Potassium Chloride Tab 10 Meq Tab PO 07/22/22 09:23 DAILY PRN PRN leg cramps Pyridoxine HCl 200 mg 06/22/22 10:00 06/23/22 09:35 Pyridoxine Hcl 100 Mg Tablet PO 07/22/22 09:59 200 mg DAILY [facility]O Administration Zinc Gluconate 50 mg 06/22/22 10:00 06/23/22 09:35 Zinc Gluconate 50 Mg Tablet PO 07/22/22 09:59 50 mg DAILY [facility]O Administration Discontinued Medications Generic Name Dose Route Start Last Admin Trade Name Freq PRN Reason Stop Dose Admin Acetaminophen 650 mg 06/21/22 21:15 Acetaminophen 325 Mg Tablet PO 07/21/22 21:14 Q4H PRN PRN PAIN, FEVER, HEADACHE Hydromorphone HCl 1 mg 06/21/22 15:52 06/21/22 16:29 Hydromorphone 1 Mg/1ml Inj 1 Mg/Ml Syringe IV 06/21/22 15:53 1 mg STAT ONE Administration Hydromorphone HCl Confirm 06/21/22 16:26 Hydromorphone 1 Mg/1ml Inj 1 Mg/Ml Syringe Administered 06/21/22 16:27 Dose 1 mg .ROUTE .STK-MED ONE Sodium Chloride 1,000 mls @ 999 mls/hr 06/21/22 15:52 06/21/22 17:46 Sodium Chloride 0.9% 1000 Ml IV 06/21/22 16:52 Infused .Q1H1M STA Infusion Sodium Chloride Confirm 06/21/22 16:26 Sodium Chloride 0.9% 1000 Ml Administered 06/21/22 16:27 Dose 1,000 mls @ ud .ROUTE .STK-MED ONE Piperacillin Sod/Tazobactam 100 mls @ 200 mls/hr 06/21/22 19:15 06/21/22 19:35 Sod 3.375 gm/ Sodium Chloride IV 06/21/22 19:44 200 mls/hr STAT ONE Administration Sodium Chloride Confirm 06/21/22 19:34 Sodium Chloride 0.9% Administered 06/21/22 19:35 Dose 100 mls @ ud .ROUTE .STK-MED ONE Sodium Chloride Confirm 06/21/22 19:37 Sodium Chloride 100ml Mini-Bag Plus Administered 06/21/22 19:38 Dose 100 mls @ ud IV .STK-MED ONE Sodium Chloride Confirm 06/22/22 00:03 Sodium Chloride 100ml Mini-Bag Plus Administered 06/22/22 00:04 Dose 100 mls @ ud IV .STK-MED ONE Sodium Chloride Confirm 06/22/22 05:36 Sodium Chloride 100ml Mini-Bag Plus Administered 06/22/22 05:37 Dose 100 mls @ ud IV .STK-MED ONE Ondansetron HCl 4 mg 06/21/22 15:52 06/21/22 16:29 Ondansetron Hcl 4 Mg/2 Ml Vial IV 06/21/22 15:53 4 mg STAT ONE Administration Ondansetron HCl Confirm 06/21/22 16:26 Ondansetron Hcl 4 Mg/2 Ml Vial Administered 06/21/22 16:27 Dose 4 mg .ROUTE .STK-MED ONE Piperacillin Sod/Tazobactam Sod Confirm 06/21/22 19:33 Piperacillin/Tazobactam Sodium 3.375 Gm Vial Administered 06/21/22 19:34 Dose 3.375 gm IV .STK-MED ONE Piperacillin Sod/Tazobactam Sod Confirm 06/22/22 00:03 Piperacillin/Tazobactam Sodium 3.375 Gm Vial Administered 06/22/22 00:04 Dose 3.375 gm IV .STK-MED ONE Piperacillin Sod/Tazobactam Sod Confirm 06/22/22 05:36 Piperacillin/Tazobactam Sodium 3.375 Gm Vial Administered 06/22/22 05:37 Dose 3.375 gm IV .STK-MED ONE Sterile Water Confirm 06/21/22 21:41 Water For Injection,Sterile 10 Ml Vial Administered 06/21/22 21:42 Dose 10 ml IJ .STK-MED ONE Intake & Output (Last 24 hours) 06/20/22 06/21/22 06/22/22 06/23/22 11:59 11:59 11:59 11:59 Intake Total 300 1560 Output Total 125 401 Balance 175 1159 Weight 70 kg Microbiology Results (Last 24 hours) 06/21/22 17:14 Urine, Void Urine Culture - Final <10K NORMAL SKIN DONN PROBABLE SKIN CONTAMINANT Orders (Last 24 hours) Category Date Time Status Infection Control Consult ROUTINE Cons 06/23/22 09:00 Active Amalgamator/Discharge Plan ROUTINE Cons 06/22/22 09:00 Active Cyanocobalamin 1000 Mcg/ml [Cyanocobalamin B-12 1000 Med 06/29/22 10:00 Active MCG/ML] 1,000 mcg IJ Q30D Ergocalciferol (Vitamin D2) [Vitamin D2] Med 06/25/22 10:00 Active 50,000 unit PO Q7D Fluconazole 100 mg [Diflucan 100 MG] Med 06/22/22 10:00 Active 200 mg PO DAILY Medication Intervention Med 06/22/22 09:30 Active 1 each MC .RN TO CHECK WITH PT Minocycline HCl Med 06/22/22 10:00 Active 100 mg PO DAILY Potassium Chloride Tab* [Klor Con] Med 06/22/22 09:24 Active 40 meq PO DAILY PRN PRN Pyridoxine HCl 100 mg [Vitamin B-6 (Pyridoxine) 100 Med 06/22/22 10:00 Active MG] 200 mg PO DAILY Zinc Gluconate 50 mg [Zinc Gluconate 50 MG] Med 06/22/22 10:00 Active 50 mg PO DAILY OT Screen per Nursing Assess ONCE OT 06/22/22 09:00 Active Patient Care Notes (Last 24 hours) 06/22/22 21:18 Nursing Note by Christinao Ryder 06/22/2022 called and given patient vital signs and still waiting on bed placement. Initialized on 06/22/22 21:18 - END OF NOTE 06/22/22 12:46 Nursing Note by Silva Arrieta Received call from Carmencita with Transport Team for status update, informing receiving physician is Dr. David. Advised Pt received Zofran 4 mg IV @ 0822, Dilaudid 1mg IV at 1000, Pt had emesis (75cc green/thick) @ 1030. This RN educated Pt on importance of "resting stomach" NPO at this time Initialized on 06/22/22 12:46 - END OF NOTE 06/22/22 12:45 Nursing Note by Silva Arrieta [id number] [facility]. Orders Received: Continue all home medication, let Pt rest. Initialized on 06/22/22 12:45 - END OF NOTE Code(s): K50.90 - CROHN'S DISEASE, UNSPECIFIED, WITHOUT COMPLICATIONS (2) Abdominal pain Current Visit: Yes Status: Acute Qualifiers: Abdominal location: generalized Qualified Code(s): R10.84 - Generalized abdominal pain Code(s): R10.9 - UNSPECIFIED ABDOMINAL PAIN (3) Cutaneous fistula Current Visit: Yes Status: Acute Code(s): L98.8 - OTH DISRD OF THE SKIN AND SUBCUTANEOUS TISSUE (4) Vomiting Current Visit: Yes Status: Acute Qualifiers: Vomiting type: unspecified Nausea presence: with nausea Qualified Code(s): R11.2 - Nausea with vomiting, unspecified Code(s): R11.10 - VOMITING, UNSPECIFIED (5) Hypokalemia Current Visit: No Status: Acute Code(s): E87.6 - HYPOKALEMIA
[2022-06-23] MEDS: PROTONIX 40 MG IV IV SCH (20:37)
[2022-06-24] MEDS: Hydromorphone 1 mg/ml Injection IV PRN ×5 (01:30→20:24)
[2022-06-24] MEDS: PIPERACILLIN/TAZOBACTAM 3.375 GM in Sodium Chloride 100ML MINI-BAG PLUS 100 ML IV SCH ×4 (05:28→23:52)
[2022-06-24] MEDS: Zofran 4 MG/2 ML VIAL IV PRN ×3 (05:28→18:32)
[2022-06-24 05:40] LABS: Hematocrit 27.7 % (35-47); Hemoglobin 8.2 g/dL (12.0-16.0); Mean Cell Volume 89.1 fL (78-100); Mean Corpuscular Hemoglobin 26.4 pg (26-32); Mean Corpuscular Hgb Concent. 29.6 g/dL (32-36); Mean Platelet Volume 10.4 fL (7.5-11.0); Platelet Count 266 x10^3/uL (150-450); Red Blood Count 3.11 x10^6/uL (4.1-5.4); Red Cell Distribution Width 15.8 % (11.5-14.0)
[2022-06-24 06:02] LABS: ALBUMIN 2.6 g/dL (3.5-5.0); ALKALINE PHOSPHATASE 96 U/L (38-126); ANION GAP 7.3 MEQ/L (5-15); BLOOD UREA NITROGEN 5 mg/dL (7-17); CHLORIDE 108 mmol/L (98-107); Calcium 7.6 mg/dL (8.4-10.2); Carbon Dioxide 25 mmol/L (22-30); Creatinine 1 0.97 mg/dL (0.52-1.04); EST GLOMERULAR FILTRATION RATE > 60.0 ML/MIN; Glucose 91 mg/dL (74-106); Potassium 3.3 mmol/L (3.5-5.1); SGOT/AST 32 U/L (14-36); SGPT/ALT 14 U/L (0-35); SODIUM 137 mmol/L (137-145); Total Protein 7.3 g/dL (6.3-8.2)
[2022-06-24] MEDS: Sodium Chloride 0.9% 1000 ML 1,000 ML IV SCH ×2 (10:04→20:23)
[2022-06-24] MEDS: MINOCYCLINE HCL PO SCH (11:37)
[2022-06-24] MEDS: Zinc Gluconate 50 MG PO SCH (11:37)
[2022-06-24] MEDS: Diflucan 100 MG PO SCH (11:37)
[2022-06-24] MEDS: Vitamin B-6 (Pyridoxine) 100 MG PO SCH (11:38)
--- NOTE | 2022-06-24 13:24 | PCM.NOTE ---
Date and Time: 06/24/22 1323 Subjective Assessment: c/o abdominal pain. Greenish discharge from peritonealdrainage tube - Review of Systems Constitutional: No Fever, No Chills Eyes: No Symptoms Ears, Nose, & Throat: No Symptoms Respiratory: No Cough, No Short Of Breath Cardiac: No Chest Pain, No Edema, No Syncope Abdominal/Gastrointestinal: Abdominal Pain, Nausea, No Vomiting, No Diarrhea Genitourinary Symptoms: No Dysuria Musculoskeletal: No Back Pain, No Neck Pain Skin: No Rash Neurological: No Dizziness, No Focal Weakness, No Sensory Changes Psychological: No Symptoms Endocrine: No Symptoms Hematologic/Lymphatic: No Symptoms Immunological/Allergic: No Symptoms Objective Exam General Appearance: no apparent distress, alert Neurologic Exam: alert, oriented x 3, cooperative, normal mood/affect, nml cerebellar function, sensation nml, No motor deficits Skin Exam: normal color, warm, dry Eye Exam: PERRL, EOMI, eyes nml inspection Ears, Nose, Throat Exam: normal ENT inspection, pharynx normal, moist mucous membranes Neck Exam: normal inspection, non-tender, supple, full range of motion Respiratory Exam: normal breath sounds, lungs clear, No respiratory distress Cardiovascular Exam: regular rate/rhythm, normal heart sounds Gastrointestinal/Abdomen Exam: soft, No tenderness, No mass Extremity Exam: normal inspection, normal range of motion Back Exam: normal inspection, normal range of motion, No CVA tenderness, No vertebral tenderness Pelvic Exam: deferred Rectal Exam: deferred OBJECTIVE DATA Vital Signs: Vital Signs - 24 hr Temp Pulse Resp BP Pulse Ox 06/24/22 12:00 97.8 F 95 H 21 124/72 95 06/24/22 07:34 98.0 F 81 17 112/60 98 06/24/22 04:00 97.2 F 92 H 16 102/58 97 06/23/22 23:08 97.3 F 79 16 111/58 100 06/23/22 19:46 97.1 F 65 16 114/62 94 L 06/23/22 16:00 97.7 F 85 23 133/69 97 Pain Assessment - Last Documented Pain Intensity 10 Pain Scale Used 0-10 Pain Scale Intake and Output: Intake & Output 06/22/22 06/23/22 06/24/22 06/25/22 11:59 11:59 11:59 11:59 Intake Total 300 1800 3003 Output Total 045 672 8783 Balance 175 1099 1353 Weight 70 kg 70.9 kg 70.5 kg Lab Results: Lab Results-Last 24 Hours 06/24/22 06/24/22 Range/Units 05:40 05:40 WBC 9.0 (4.0-10.5) x10^3/uL RBC 3.11 L (4.1-5.4) x10^6/uL Hgb 8.2 L (12.0-16.0) g/dL Hct 27.7 L (35-47) % MCV 89.1 (78-100) fL MCH 26.4 (26-32) pg MCHC 29.6 L (32-36) g/dL RDW 15.8 H (11.5-14.0) % Plt Count 266 (150-450) x10^3/uL MPV 10.4 (7.5-11.0) fL Sodium 137 (137-145) mmol/L Potassium 3.3 L (3.5-5.1) mmol/L Chloride 108 H (98-107) mmol/L Carbon Dioxide 25 (22-30) mmol/L Anion Gap 7.3 (5-15) MEQ/L BUN 5 L (7-17) mg/dL Creatinine 0.97 (0.52-1.04) mg/dL Estimated GFR > 60.0 ML/MIN Glucose 91 (74-106) mg/dL Calcium 7.6 L (8.4-10.2) mg/dL Total Bilirubin 0.70 (0.2-1.3) mg/dL AST 32 (14-36) U/L ALT 14 (0-35) U/L Alkaline Phosphatase 96 (38-126) U/L Serum Total Protein 7.3 (6.3-8.2) g/dL Albumin 2.6 L (3.5-5.0) g/dL Multi-Disciplinary Progress Notes: Multi-Disciplinary Progress Notes 06/24/22 12:05 Case Management Note by Clarita Ingram PATIENT ACUTELY ILL- WAITING ON BED AT AT THIS TIME Initialized on 06/24/22 12:05 - END OF NOTE Assessment/Plan (1) Crohn's disease (regional enteritis) Current Visit: Yes Status: Acute Qualifiers: Gastrointestinal tract location: small and large intestine Digestive disease complication type: with fistula Qualified Code(s): K50.813 - Crohn's disease of both small and large intestine with fistula Assessment & Plan: Chief Complaint Diagnosis nausea, vomiting, abdominal pain for 2-3 days Allergies Allergy/AdvReac Type Severity Reaction Status Date / Time acetaminophen [From Tylenol] Allergy Severe Swelling Verified 06/21/22 22:42 of Tongue and Lips hydrocodone [From Lortab] Allergy Severe Swelling Verified 06/21/22 22:42 of Tongue and Lips natalizumab [From Tysabri] Allergy Severe Hives Verified 06/21/22 22:42 onion Allergy Severe Swelling Verified 06/21/22 22:42 of Tongue and Lips tomato Allergy Severe Tightness Verified 06/21/22 22:42 of Throat latex Allergy Intermediate Hives Verified 06/21/22 22:42 morphine AdvReac Severe Verified 06/21/22 22:42 Vital Signs (Last 24 hours) Temp Pulse Resp BP Pulse Ox 06/24/22 12:00 97.8 F 95 H 21 124/72 95 06/24/22 07:34 98.0 F 81 17 112/60 98 06/24/22 04:00 97.2 F 92 H 16 102/58 97 06/23/22 23:08 97.3 F 79 16 111/58 100 06/23/22 19:46 97.1 F 65 16 114/62 94 L 06/23/22 16:00 97.7 F 85 23 133/69 97 Home Medications Medication Instructions Recorded Confirmed Last Taken Type Fluconazole 200 mg PO DAILY 06/21/22 06/22/22 06/21/22 History Minocycline HCl 1 ea DAILY 06/21/22 06/22/22 06/21/22 History Potassium Chloride 40 meq PO UD 06/21/22 06/21/22 06/13/22 History Pyridoxine HCl (Vitamin B6) 220 mg DAILY 06/21/22 06/22/22 06/21/22 History [Vitamin B-6] Vitamin A Palmitate [Vitamin A] 3,000 units DAILY 06/21/22 06/22/22 06/21/22 History Zinc Gluconate [Zinc] 50 mg PO DAILY 06/21/22 06/22/22 06/21/22 History Current Medications Generic Name Dose Route Start Last Admin Trade Name Freq PRN Reason Stop Dose Admin Cyanocobalamin 1,000 mcg 06/29/22 10:00 Cyanocobalamin 1000 Mcg/Ml Vial IJ 07/29/22 09:59 Q30D ROMULO Ergocalciferol 50,000 unit 06/25/22 10:00 Ergocalciferol (Vitamin D2) 50,000 Unit Capsule PO 07/25/22 09:59 Q7D ROMULO Fluconazole 200 mg 06/22/22 10:00 06/24/22 11:37 Fluconazole 100 Mg Tablet PO 07/22/22 09:59 200 mg DAILY ROMULO Administration Hydromorphone HCl 1 mg 06/21/22 21:15 06/24/22 11:34 Hydromorphone 1 Mg/1ml Inj 1 Mg/Ml Syringe IV 06/26/22 21:14 1 mg Q4H PRN PRN Administration PAIN Sodium Chloride 1,000 mls @ 100 mls/hr 06/21/22 21:15 06/24/22 10:04 Sodium Chloride 0.9% 1000 Ml IV 07/21/22 21:14 100 mls/hr .Q10H ROMULO Administration Piperacillin Sod/Tazobactam 100 mls @ 200 mls/hr 06/22/22 00:00 06/24/22 12:13 Sod 3.375 gm/ Sodium Chloride IV 06/26/22 00:00 200 mls/hr Q6HT ROMULO Administration Minocycline HCl 100 mg 06/22/22 10:00 06/24/22 11:37 Minocycline Hcl 100 Mg Capsule PO 07/22/22 09:59 100 mg DAILY ROUMLO Administration Miscellaneous Information 1 each 06/22/22 09:30 Medication Intervention 1 Each Each 07/22/22 09:29 .RN TO CHECK WITH [facility] Ondansetron HCl 4 mg 06/21/22 21:15 06/24/22 11:38 Ondansetron Hcl 4 Mg/2 Ml Vial IV 07/21/22 21:14 4 mg Q6H PRN PRN Administration NAUSEA/VOMITING Oxycodone HCl 5 mg 06/22/22 08:44 Oxycodone Hcl 5 Mg Ir Tab PO 06/27/22 08:43 Q4HPRN PRN PAIN Pantoprazole Sodium 40 mg 06/21/22 21:15 06/23/22 20:37 Pantoprazole 40 Mg Vial IV 07/21/22 21:14 40 mg Q24H ROMULO Administration Potassium Chloride 40 meq 06/22/22 09:24 Potassium Chloride Tab 10 Meq Tab PO 07/22/22 09:23 DAILY PRN PRN leg cramps Pyridoxine HCl 200 mg 06/22/22 10:00 06/24/22 11:38 Pyridoxine Hcl 100 Mg Tablet PO 07/22/22 09:59 200 mg DAILY ROMULO Administration Zinc Gluconate 50 mg 06/22/22 10:00 06/24/22 11:37 Zinc Gluconate 50 Mg Tablet PO 07/22/22 09:59 50 mg DAILY ROMULO Administration Discontinued Medications Generic Name Dose Route Start Last Admin Trade Name Freq PRN Reason Stop Dose Admin Acetaminophen 650 mg 06/21/22 21:15 Acetaminophen 325 Mg Tablet PO 07/21/22 21:14 Q4H PRN PRN PAIN, FEVER, HEADACHE Hydromorphone HCl 1 mg 06/21/22 15:52 06/21/22 16:29 Hydromorphone 1 Mg/1ml Inj 1 Mg/Ml Syringe IV 06/21/22 15:53 1 mg STAT ONE Administration Hydromorphone HCl Confirm 06/21/22 16:26 Hydromorphone 1 Mg/1ml Inj 1 Mg/Ml Syringe Administered 06/21/22 16:27 Dose 1 mg .ROUTE .STK-MED ONE Sodium Chloride 1,000 mls @ 999 mls/hr 06/21/22 15:52 06/21/22 17:46 Sodium Chloride 0.9% 1000 Ml IV 06/21/22 16:52 Infused .Q1H1M STA Infusion Sodium Chloride Confirm 06/21/22 16:26 Sodium Chloride 0.9% 1000 Ml Administered 06/21/22 16:27 Dose 1,000 mls @ ud .ROUTE .STK-MED ONE Piperacillin Sod/Tazobactam 100 mls @ 200 mls/hr 06/21/22 19:15 06/21/22 19:35 Sod 3.375 gm/ Sodium Chloride IV 06/21/22 19:44 200 mls/hr STAT ONE Administration Sodium Chloride Confirm 06/21/22 19:34 Sodium Chloride 0.9% Administered 06/21/22 19:35 Dose 100 mls @ ud .ROUTE .STK-MED ONE Sodium Chloride Confirm 06/21/22 19:37 Sodium Chloride 100ml Mini-Bag Plus Administered 06/21/22 19:38 Dose 100 mls @ ud IV .STK-MED ONE Sodium Chloride Confirm 06/22/22 00:03 Sodium Chloride 100ml Mini-Bag Plus Administered 06/22/22 00:04 Dose 100 mls @ ud IV .STK-MED ONE Sodium Chloride Confirm 06/22/22 05:36 Sodium Chloride 100ml Mini-Bag Plus Administered 06/22/22 05:37 Dose 100 mls @ ud IV .STK-MED ONE Ondansetron HCl 4 mg 06/21/22 15:52 06/21/22 16:29 Ondansetron Hcl 4 Mg/2 Ml Vial IV 06/21/22 15:53 4 mg STAT ONE Administration Ondansetron HCl Confirm 06/21/22 16:26 Ondansetron Hcl 4 Mg/2 Ml Vial Administered 06/21/22 16:27 Dose 4 mg .ROUTE .STK-MED ONE Piperacillin Sod/Tazobactam Sod Confirm 06/21/22 19:33 Piperacillin/Tazobactam Sodium 3.375 Gm Vial Administered 06/21/22 19:34 Dose 3.375 gm IV .STK-MED ONE Piperacillin Sod/Tazobactam Sod Confirm 06/22/22 00:03 Piperacillin/Tazobactam Sodium 3.375 Gm Vial Administered 06/22/22 00:04 Dose 3.375 gm IV .STK-MED ONE Piperacillin Sod/Tazobactam Sod Confirm 06/22/22 05:36 Piperacillin/Tazobactam Sodium 3.375 Gm Vial Administered 06/22/22 05:37 Dose 3.375 gm IV .STK-MED ONE Sterile Water Confirm 06/21/22 21:41 Water For Injection,Sterile 10 Ml Vial Administered 06/21/22 21:42 Dose 10 ml IJ .STK-MED ONE Intake & Output (Last 24 hours) 06/22/22 06/23/22 06/24/22 06/25/22 11:59 11:59 11:59 11:59 Intake Total 300 1800 3003 Output Total 772 292 4404 Balance 175 1099 1353 Weight 70 kg 70.9 kg 70.5 kg Laboratory Results (Last 24 hours) 06/24/22 06/24/22 05:40 05:40 WBC 9.0 RBC 3.11 L Hgb 8.2 L Hct 27.7 L MCV 89.1 MCH 26.4 MCHC 29.6 L RDW 15.8 H Plt Count 266 MPV 10.4 Sodium 137 Potassium 3.3 L Chloride 108 H Carbon Dioxide 25 Anion Gap 7.3 BUN 5 L Creatinine 0.97 Estimated GFR > 60.0 Glucose 91 Calcium 7.6 L Total Bilirubin 0.70 AST 32 ALT 14 Alkaline Phosphatase 96 Serum Total Protein 7.3 Albumin 2.6 L Orders (Last 24 hours) Category Date Time Status CBC Routine Lab 06/24/22 05:40 Completed CMP Routine Lab 06/24/22 05:40 Completed Cyanocobalamin 1000 Mcg/ml [Cyanocobalamin B-12 1000 Med 06/29/22 10:00 Active MCG/ML] 1,000 mcg IJ Q30D Ergocalciferol (Vitamin D2) [Vitamin D2] Med 06/25/22 10:00 Active 50,000 unit PO Q7D Patient Care Notes (Last 24 hours) 06/24/22 12:05 Case Management Note by Clarita Ingram PATIENT ACUTELY ILL- WAITING ON BED AT AT THIS TIME Initialized on 06/24/22 12:05 - END OF NOTE 06/24/22 11:56 Nursing Note by Misa Davis, FROM [facility], THEY PREVIOUSLY PROVIDED PATIENT WITH AT HOME INFUSION, STATE THEY WILL NEED NEW ORDERS IF PATIENT GETS DISCHARGED FROM OUR FACILITY TO HOME. NOTIFIED HER THAT WE PLAN TO TRANSFER PATIENT TO [facility], BUT IF PLANS CHANGE WE WILL SEND ORDERS FOR OUTPATIENT TO THEM. Initialized on 06/24/22 11:56 - END OF NOTE 06/24/22 11:30 (created 06/24/22 11:33) Nursing Note by Ivis Shea. [facility] called. They wanted to know patient's admit date. They will be calling back again later. Initialized on 06/24/22 11:33 - END OF NOTE 06/24/22 09:19 Nursing Note by Maryse Aguilar Called transfer center to check on transfer to . Transfer center stated that it is requested but they are still waiting on a bed. Initialized on 06/24/22 09:19 - END OF NOTE Code(s): K50.90 - CROHN'S DISEASE, UNSPECIFIED, WITHOUT COMPLICATIONS (2) Abdominal pain Current Visit: Yes Status: Acute Qualifiers: Abdominal location: generalized Qualified Code(s): R10.84 - Generalized abdominal pain Code(s): R10.9 - UNSPECIFIED ABDOMINAL PAIN (3) Cutaneous fistula Current Visit: Yes Status: Acute Code(s): L98.8 - OTH DISRD OF THE SKIN AND SUBCUTANEOUS TISSUE (4) Vomiting Current Visit: Yes Status: Acute Qualifiers: Vomiting type: unspecified Nausea presence: with nausea Qualified Code(s): R11.2 - Nausea with vomiting, unspecified Code(s): R11.10 - VOMITING, UNSPECIFIED (5) Hypokalemia Current Visit: No Status: Acute Code(s): E87.6 - HYPOKALEMIA
[2022-06-24] MEDS: PROTONIX 40 MG IV IV SCH (20:23)
[2022-06-25] MEDS: Zofran 4 MG/2 ML VIAL IV PRN ×5 (00:28→20:38)
[2022-06-25] MEDS: Hydromorphone 1 mg/ml Injection IV PRN ×5 (00:28→20:39)
[2022-06-25] MEDS: PIPERACILLIN/TAZOBACTAM 3.375 GM in Sodium Chloride 100ML MINI-BAG PLUS 100 ML IV SCH ×4 (05:45→23:44)
[2022-06-25] MEDS: Sodium Chloride 0.9% 1000 ML 1,000 ML IV SCH ×3 (07:09→07:28)
[2022-06-25] MEDS: MINOCYCLINE HCL PO SCH (08:38)
[2022-06-25] MEDS: Diflucan 100 MG PO SCH (08:38)
[2022-06-25] MEDS: Oxy-IR 5 MG PO PRN ×2 (08:38→12:39)
[2022-06-25] MEDS: Zinc Gluconate 50 MG PO SCH (08:39)
[2022-06-25] MEDS: Vitamin B-6 (Pyridoxine) 100 MG PO SCH (08:39)
[2022-06-25] MEDS ORDERED: VITAMIN D2 PO SCH (10:00)
[2022-06-25] MEDS ORDERED: KABIVEN - CENT TPN 2053 ML 2,053 ML with Vitamins For Infusion 10 ML INJECTION*** 10 ML... IV SCH ×3 (14:00)
[2022-06-25] MEDS: PROTONIX 40 MG IV IV SCH (20:38)
--- NOTE | 2022-06-25 20:49 | PCM.NOTE ---
Date and Time: 06/25/222047 Subjective Assessment: still abdominal pain - Review of Systems Constitutional: No Fever, No Chills Eyes: No Symptoms Ears, Nose, & Throat: No Symptoms Respiratory: No Cough, No Short Of Breath Cardiac: No Chest Pain, No Edema, No Syncope Abdominal/Gastrointestinal: Abdominal Pain, No Nausea, No Vomiting, No Diarrhea Genitourinary Symptoms: No Dysuria Musculoskeletal: No Back Pain, No Neck Pain Skin: No Rash Neurological: No Dizziness, No Focal Weakness, No Sensory Changes Psychological: No Symptoms Endocrine: No Symptoms Hematologic/Lymphatic: No Symptoms Immunological/Allergic: No Symptoms Objective Exam General Appearance: no apparent distress, alert Neurologic Exam: alert, oriented x 3, cooperative, normal mood/affect, nml cerebellar function, sensation nml, No motor deficits Skin Exam: normal color, warm, dry Eye Exam: PERRL, EOMI, eyes nml inspection Ears, Nose, Throat Exam: normal ENT inspection, pharynx normal, moist mucous membranes Neck Exam: normal inspection, non-tender, supple, full range of motion Respiratory Exam: normal breath sounds, lungs clear, No respiratory distress Cardiovascular Exam: regular rate/rhythm, normal heart sounds Gastrointestinal/Abdomen Exam: soft, No tenderness, No mass Extremity Exam: normal inspection, normal range of motion Back Exam: normal inspection, normal range of motion, No CVA tenderness, No vertebral tenderness Pelvic Exam: deferred Rectal Exam: deferred OBJECTIVE DATA Vital Signs: Vital Signs - 24 hr Temp Pulse Resp BP Pulse Ox 06/25/22 20:00 97.1 F 61 16 119/62 100 06/25/22 16:00 97.1 F 54 L 16 121/66 96 06/25/22 12:00 97.3 F 73 16 108/55 98 06/25/22 08:00 97.1 F 64 16 126/62 98 06/25/22 04:00 97.1 F 64 16 103/58 98 06/25/22 00:00 97.5 F 77 16 118/58 100 Pain Assessment - Last Documented Pain Intensity 3 Pain Scale Used 0-10 Pain Scale Intake and Output: Intake & Output 06/23/22 06/24/22 06/25/22 06/26/22 11:59 11:59 11:59 11:59 Intake Total 1800 3003 2654 Output Total 701 1650 1400 800 Balance 1099 1353 1254 -800 Weight 70.9 kg 70.5 kg 71.3 kg Multi-Disciplinary Progress Notes: Multi-Disciplinary Progress Notes 06/25/22 15:45 Nutrition Note by Mahnaz Frederick F/u Note: Diet advanced to house regular. Pt refusing meals. adm weight 70kg; current weight 71.3 kg. Labs 9/6 = k+ 3.3, BUN 5 alb 2.6 hgb 8.2 hct 27.7. TPN @ 85mls/hour started today. Breakdown of calories/pro not received at this time. Will f/u prn. Note pt to transfer out to [facility] once bed is open. LEANNA HuynhCD Initialized on 06/25/22 15:45 - END OF NOTE 06/25/22 14:27 Case Management Note by Clarita Ingram PATIENT STILL WAITING ON PLACEMENT AT [facility] Initialized on 06/25/22 14:27 - END OF NOTE Assessment/Plan (1) Crohn's disease (regional enteritis) Current Visit: Yes Status: Acute Qualifiers: Gastrointestinal tract location: small and large intestine Digestive disease complication type: with fistula Qualified Code(s): K50.813 - Crohn's disease of both small and large intestine with fistula Assessment & Plan: Chief Complaint Diagnosis nausea, vomiting, abdominal pain for 2-3 days Allergies Allergy/AdvReac Type Severity Reaction Status Date / Time acetaminophen [From Tylenol] Allergy Severe Swelling Verified 06/21/22 22:42 of Tongue and Lips hydrocodone [From Lortab] Allergy Severe Swelling Verified 06/21/22 22:42 of Tongue and Lips natalizumab [From Tysabri] Allergy Severe Hives Verified 06/21/22 22:42 onion Allergy Severe Swelling Verified 06/21/22 22:42 of Tongue and Lips tomato Allergy Severe Tightness Verified 06/21/22 22:42 of Throat latex Allergy Intermediate Hives Verified 06/21/22 22:42 morphine AdvReac Severe Verified 06/21/22 22:42 Vital Signs (Last 24 hours) Temp Pulse Resp BP Pulse Ox 06/25/22 20:00 97.1 F 61 16 119/62 100 06/25/22 16:00 97.1 F 54 L 16 121/66 96 06/25/22 12:00 97.3 F 73 16 108/55 98 06/25/22 08:00 97.1 F 64 16 126/62 98 06/25/22 04:00 97.1 F 64 16 103/58 98 06/25/22 00:00 97.5 F 77 16 118/58 100 Home Medications Medication Instructions Recorded Confirmed Last Taken Type Fluconazole 200 mg PO DAILY 06/21/22 06/22/22 06/21/22 History Minocycline HCl 1 ea DAILY 06/21/22 06/22/22 06/21/22 History Potassium Chloride 40 meq PO UD 06/21/22 06/21/22 06/13/22 History Pyridoxine HCl (Vitamin B6) 220 mg DAILY 06/21/22 06/22/22 06/21/22 History [Vitamin B-6] Vitamin A Palmitate [Vitamin A] 3,000 units DAILY 06/21/22 06/22/22 06/21/22 History Zinc Gluconate [Zinc] 50 mg PO DAILY 06/21/22 06/22/22 06/21/22 History Current Medications Generic Name Dose Route Start Last Admin Trade Name Edin PRN Reason Stop Dose Admin Cyanocobalamin 1,000 mcg 06/29/22 10:00 Cyanocobalamin 1000 Mcg/Ml Vial IJ 07/29/22 09:59 Q30D ROMULO Ergocalciferol 50,000 unit 06/25/22 10:00 06/25/22 08:39 Ergocalciferol (Vitamin D2) 50,000 Unit Capsule PO 07/25/22 09:59 50,000 unit Q7D ROMULO Administration Fluconazole 200 mg 06/22/22 10:00 06/25/22 08:38 Fluconazole 100 Mg Tablet PO 07/22/22 09:59 200 mg DAILY ROMULO Administration Hydromorphone HCl 1 mg 06/21/22 21:15 06/25/22 16:40 Hydromorphone 1 Mg/1ml Inj 1 Mg/Ml Syringe IV 06/26/22 21:14 1 mg Q4H PRN PRN Administration PAIN Piperacillin Sod/Tazobactam 100 mls @ 200 mls/hr 06/22/22 00:00 06/25/22 17:06 Sod 3.375 gm/ Sodium Chloride IV 06/27/22 00:00 200 mls/hr Q6HT ROMULO Administration Multivitamins/Minerals 10 ml/ 2,064 mls @ 85 mls/hr 06/25/22 14:00 06/25/22 14:18 ZINC/COPPER/MANGANESE/SELENIUM IV 07/25/22 13:59 85 mls/hr 1 ml/ Amino Acids/ .Q24H ROMULO Administration Electrolytes/Dextrose Minocycline HCl 100 mg 06/22/22 10:00 06/25/22 08:38 Minocycline Hcl 100 Mg Capsule PO 07/22/22 09:59 100 mg DAILY ROMULO Administration Miscellaneous Information 1 each 06/22/22 09:30 Medication Intervention 1 Each Each 07/22/22 09:29 .RN TO CHECK WITH PT ROMULO Ondansetron HCl 4 mg 06/25/22 11:32 06/25/22 16:40 Ondansetron Hcl 4 Mg/2 Ml Vial IV 07/25/22 11:30 4 mg Q4H PRN PRN Administration NAUSEA/VOMITING Oxycodone HCl 5 mg 06/22/22 08:44 06/25/22 08:38 Oxycodone Hcl 5 Mg Ir Tab PO 06/27/22 08:43 5 mg Q4HPRN PRN Administration PAIN Pantoprazole Sodium 40 mg 06/21/22 21:15 06/24/22 20:23 Pantoprazole 40 Mg Vial IV 07/21/22 21:14 40 mg Q24H ROMULO Administration Potassium Chloride 40 meq 06/22/22 09:24 Potassium Chloride Tab 10 Meq Tab PO 07/22/22 09:23 DAILY PRN PRN leg cramps Pyridoxine HCl 200 mg 06/22/22 10:00 06/25/22 08:39 Pyridoxine Hcl 100 Mg Tablet PO 07/22/22 09:59 200 mg DAILY ROMULO Administration Zinc Gluconate 50 mg 06/22/22 10:00 06/25/22 08:39 Zinc Gluconate 50 Mg Tablet PO 07/22/22 09:59 50 mg DAILY ROMULO Administration Discontinued Medications Generic Name Dose Route Start Last Admin Trade Name Freq PRN Reason Stop Dose Admin Acetaminophen 650 mg 06/21/22 21:15 Acetaminophen 325 Mg Tablet PO 07/21/22 21:14 Q4H PRN PRN PAIN, FEVER, HEADACHE Hydromorphone HCl 1 mg 06/21/22 15:52 06/21/22 16:29 Hydromorphone 1 Mg/1ml Inj 1 Mg/Ml Syringe IV 06/21/22 15:53 1 mg STAT ONE Administration Hydromorphone HCl Confirm 06/21/22 16:26 Hydromorphone 1 Mg/1ml Inj 1 Mg/Ml Syringe Administered 06/21/22 16:27 Dose 1 mg .ROUTE .STK-MED ONE Sodium Chloride 1,000 mls @ 999 mls/hr 06/21/22 15:52 06/21/22 17:46 Sodium Chloride 0.9% 1000 Ml IV 06/21/22 16:52 Infused .Q1H1M STA Infusion Sodium Chloride Confirm 06/21/22 16:26 Sodium Chloride 0.9% 1000 Ml Administered 06/21/22 16:27 Dose 1,000 mls @ ud .ROUTE .STK-MED ONE Piperacillin Sod/Tazobactam 100 mls @ 200 mls/hr 06/21/22 19:15 06/21/22 19:35 Sod 3.375 gm/ Sodium Chloride IV 06/21/22 19:44 200 mls/hr STAT ONE Administration Sodium Chloride Confirm 06/21/22 19:34 Sodium Chloride 0.9% Administered 06/21/22 19:35 Dose 100 mls @ ud .ROUTE .STK-MED ONE Sodium Chloride Confirm 06/21/22 19:37 Sodium Chloride 100ml Mini-Bag Plus Administered 06/21/22 19:38 Dose 100 mls @ ud IV .STK-MED ONE Sodium Chloride 1,000 mls @ 100 mls/hr 06/21/22 21:15 06/25/22 07:28 Sodium Chloride 0.9% 1000 Ml IV 06/25/22 14:00 100 mls/hr .Q10H ROMULO Administration Sodium Chloride Confirm 06/22/22 00:03 Sodium Chloride 100ml Mini-Bag Plus Administered 06/22/22 00:04 Dose 100 mls @ ud IV .STK-MED ONE Sodium Chloride Confirm 06/22/22 05:36 Sodium Chloride 100ml Mini-Bag Plus Administered 06/22/22 05:37 Dose 100 mls @ ud IV .STK-MED ONE Ondansetron HCl 4 mg 06/21/22 15:52 06/21/22 16:29 Ondansetron Hcl 4 Mg/2 Ml Vial IV 06/21/22 15:53 4 mg STAT ONE Administration Ondansetron HCl Confirm 06/21/22 16:26 Ondansetron Hcl 4 Mg/2 Ml Vial Administered 06/21/22 16:27 Dose 4 mg .ROUTE .STK-MED ONE Ondansetron HCl 4 mg 06/21/22 21:15 06/25/22 07:23 Ondansetron Hcl 4 Mg/2 Ml Vial IV 07/21/22 21:14 4 mg Q6H PRN PRN Administration NAUSEA/VOMITING Piperacillin Sod/Tazobactam Sod Confirm 06/21/22 19:33 Piperacillin/Tazobactam Sodium 3.375 Gm Vial Administered 06/21/22 19:34 Dose 3.375 gm IV .STK-MED ONE Piperacillin Sod/Tazobactam Sod Confirm 06/22/22 00:03 Piperacillin/Tazobactam Sodium 3.375 Gm Vial Administered 06/22/22 00:04 Dose 3.375 gm IV .STK-MED ONE Piperacillin Sod/Tazobactam Sod Confirm 06/22/22 05:36 Piperacillin/Tazobactam Sodium 3.375 Gm Vial Administered 06/22/22 05:37 Dose 3.375 gm IV .STK-MED ONE Sterile Water Confirm 06/21/22 21:41 Water For Injection,Sterile 10 Ml Vial Administered 06/21/22 21:42 Dose 10 ml IJ .STK-MED ONE Intake & Output (Last 24 hours) 06/23/22 06/24/22 06/25/22 06/26/22 11:59 11:59 11:59 11:59 Intake Total 1800 3003 2654 Output Total 701 1650 1400 800 Balance 1099 1353 1254 -800 Weight 70.9 kg 70.5 kg 71.3 kg Orders (Last 24 hours) Category Date Time Status CBC AM.LAB Lab 06/26/22 04:00 Ordered CMP AM.LAB Lab 06/26/22 04:00 Ordered Aa 3.31 %/D9.8w/Fat/E-Lytes 10 [Kabiven - Cent TPN 2052 Med 06/25/22 14:00 Active ml] 2,053 ml Multivitamins 10 ml [Vitamins For Infusion 10 ML INJECTION] 10 ml Zinc/Copper/Manganese/Selenium [Tralement Vial] 1 ml IV 85 mls/hr Cyanocobalamin 1000 Mcg/ml [Cyanocobalamin B-12 1000 Med 06/29/22 10:00 Active MCG/ML] 1,000 mcg IJ Q30D Ergocalciferol (Vitamin D2) [Vitamin D2] Med 06/25/22 10:00 Active 50,000 unit PO Q7D Ondansetron HCl 4 mg/2 ml [Zofran 4 MG/2 ML VIAL] Med 06/25/22 11:32 Active 4 mg IV Q4H PRN PRN Patient Care Notes (Last 24 hours) 06/25/22 15:45 Nutrition Note by Mahnaz Frederick F/u Note: Diet advanced to house regular. Pt refusing meals. adm weight 70kg; current weight 71.3 kg. Labs 9/6 = k+ 3.3, BUN 5 alb 2.6 hgb 8.2 hct 27.7. TPN @ 85mls/hour started today. Breakdown of calories/pro not received at this time. Will f/u prn. Note pt to transfer out to [facility] once bed is open. MS LinoRDCD Initialized on 06/25/22 15:45 - END OF NOTE 06/25/22 14:27 Case Management Note by Clarita Ingram PATIENT STILL WAITING ON PLACEMENT AT [facility] Initialized on 06/25/22 14:27 - END OF NOTE 06/25/22 11:33 Nursing Note by Rocio Irwin. ORDER FROM DR. KWON TO CHANGE FREQUENCY OF ZOFRAN TO Q4H PRN RATHER THAN Q6H PRN. Initialized on 06/25/22 11:33 - END OF NOTE 06/25/22 08:30 Nursing Note by Maryse Aguilar Called transfer center to inquire about status regarding bed placement at [facility]. Spoke with Sanaz who stated they are still waiting on a bed at this time. She stated to check back this afternoon. Initialized on 06/25/22 08:30 - END OF NOTE Code(s): K50.90 - CROHN'S DISEASE, UNSPECIFIED, WITHOUT COMPLICATIONS (2) Abdominal pain Current Visit: Yes Status: Acute Qualifiers: Abdominal location: generalized Qualified Code(s): R10.84 - Generalized abdominal pain Code(s): R10.9 - UNSPECIFIED ABDOMINAL PAIN (3) Cutaneous fistula Current Visit: Yes Status: Acute Code(s): L98.8 - OTH DISRD OF THE SKIN AND SUBCUTANEOUS TISSUE (4) Vomiting Current Visit: Yes Status: Acute Qualifiers: Vomiting type: unspecified Nausea presence: with nausea Qualified Code(s): R11.2 - Nausea with vomiting, unspecified Code(s): R11.10 - VOMITING, UNSPECIFIED (5) Hypokalemia Current Visit: No Status: Acute Code(s): E87.6 - HYPOKALEMIA
[2022-06-26] MEDS: Hydromorphone 1 mg/ml Injection IV PRN ×6 (00:41→21:07)
[2022-06-26] MEDS: Zofran 4 MG/2 ML VIAL IV PRN ×6 (00:41→21:07)
[2022-06-26] MEDS: PIPERACILLIN/TAZOBACTAM 3.375 GM in Sodium Chloride 100ML MINI-BAG PLUS 100 ML IV SCH ×3 (05:25→18:49)
[2022-06-26 05:39] LABS: Hematocrit 25.1 % (35-47); Hemoglobin 7.2 g/dL (12.0-16.0); Mean Cell Volume 89.3 fL (78-100); Mean Corpuscular Hemoglobin 25.6 pg (26-32); Mean Corpuscular Hgb Concent. 28.7 g/dL (32-36); Mean Platelet Volume 10.5 fL (7.5-11.0); Platelet Count 206 x10^3/uL (150-450); Red Blood Count 2.81 x10^6/uL (4.1-5.4); Red Cell Distribution Width 15.3 % (11.5-14.0)
[2022-06-26 06:07] LABS: ALBUMIN 2.5 g/dL (3.5-5.0); ALKALINE PHOSPHATASE 76 U/L (38-126); ANION GAP 9.1 MEQ/L (5-15); BLOOD UREA NITROGEN 6 mg/dL (7-17); CHLORIDE 107 mmol/L (98-107); Calcium 7.8 mg/dL (8.4-10.2); Carbon Dioxide 25 mmol/L (22-30); Creatinine 1 0.87 mg/dL (0.52-1.04); EST GLOMERULAR FILTRATION RATE > 60.0 ML/MIN; Glucose 133 mg/dL (74-106); Potassium 3.1 mmol/L (3.5-5.1); SGOT/AST 19 U/L (14-36); SGPT/ALT 13 U/L (0-35); SODIUM 138 mmol/L (137-145); Total Protein 7.1 g/dL (6.3-8.2)
[2022-06-26 07:22] LABS: Slide Review YES
[2022-06-26] MEDS: POTASSIUM CHLORIDE 20 mEq IN WATER 100ML 20 MEQ/100 ML BAG IV SCH ×2 (08:45→11:01)
[2022-06-26] MEDS: Diflucan 100 MG PO SCH (09:32)
[2022-06-26] MEDS: Vitamin B-6 (Pyridoxine) 100 MG PO SCH (09:33)
[2022-06-26] MEDS: MINOCYCLINE HCL PO SCH (09:33)
[2022-06-26] MEDS: Zinc Gluconate 50 MG PO SCH (09:33)
--- NOTE | 2022-06-26 13:40 | PCM.NOTE ---
Date and Time: 06/26/22 7315 Subjective Assessment: doing ok - Review of Systems Constitutional: No Fever, No Chills Eyes: No Symptoms Ears, Nose, & Throat: No Symptoms Respiratory: No Cough, No Short Of Breath Cardiac: No Chest Pain, No Edema, No Syncope Abdominal/Gastrointestinal: No Abdominal Pain, No Nausea, No Vomiting, No Diarrhea Genitourinary Symptoms: No Dysuria Musculoskeletal: No Back Pain, No Neck Pain Skin: No Rash Neurological: No Dizziness, No Focal Weakness, No Sensory Changes Psychological: No Symptoms Endocrine: No Symptoms Hematologic/Lymphatic: No Symptoms Immunological/Allergic: No Symptoms Objective Exam General Appearance: no apparent distress, alert Neurologic Exam: alert, oriented x 3, cooperative, normal mood/affect, nml cerebellar function, sensation nml, No motor deficits Skin Exam: normal color, warm, dry Eye Exam: PERRL, EOMI, eyes nml inspection Ears, Nose, Throat Exam: normal ENT inspection, pharynx normal, moist mucous membranes Neck Exam: normal inspection, non-tender, supple, full range of motion Respiratory Exam: normal breath sounds, lungs clear, No respiratory distress Cardiovascular Exam: regular rate/rhythm, normal heart sounds Gastrointestinal/Abdomen Exam: soft, No tenderness, No mass Extremity Exam: normal inspection, normal range of motion Back Exam: normal inspection, normal range of motion, No CVA tenderness, No vertebral tenderness Pelvic Exam: deferred Rectal Exam: deferred OBJECTIVE DATA Vital Signs: Vital Signs - 24 hr Temp Pulse Resp BP Pulse Ox 06/26/22 12:00 97.3 F 78 16 115/57 98 06/26/22 07:08 97.3 F 58 L 16 116/62 96 06/26/22 04:00 97.9 F 55 L 16 89/54 98 06/25/22 23:34 97.8 F 60 18 138/64 100 06/25/22 20:00 97.1 F 61 16 119/62 100 06/25/22 16:00 97.1 F 54 L 16 121/66 96 Pain Assessment - Last Documented Pain Intensity 10 Pain Scale Used 0-10 Pain Scale Intake and Output: Intake & Output 06/24/22 06/25/22 06/26/22 06/27/22 11:59 11:59 11:59 11:59 Intake Total 3003 2654 1295 Output Total 1650 1400 2950 Balance 1353 1254 -1655 Weight 70.5 kg 71.3 kg 70.7 kg Lab Results: Lab Results-Last 24 Hours 06/26/22 06/26/22 06/26/22 Range/Units 04:45 04:45 08:00 WBC 5.0 (4.0-10.5) x10^3/uL RBC 2.81 L (4.1-5.4) x10^6/uL Hgb 7.2 L (12.0-16.0) g/dL Hct 25.1 L (35-47) % MCV 89.3 (78-100) fL MCH 25.6 L (26-32) pg MCHC 28.7 L (32-36) g/dL RDW 15.3 H (11.5-14.0) % Plt Count 206 (150-450) x10^3/uL MPV 10.5 (7.5-11.0) fL Sodium 138 (137-145) mmol/L Potassium 3.1 L (3.5-5.1) mmol/L Chloride 107 (98-107) mmol/L Carbon Dioxide 25 (22-30) mmol/L Anion Gap 9.1 (5-15) MEQ/L BUN 6 L (7-17) mg/dL Creatinine 0.87 (0.52-1.04) mg/dL Estimated GFR > 60.0 ML/MIN Glucose 133 H (74-106) mg/dL Calcium 7.8 L (8.4-10.2) mg/dL Magnesium 1.6 (1.6-2.3) mg/dL Total Bilirubin 0.20 (0.2-1.3) mg/dL AST 19 (14-36) U/L ALT 13 (0-35) U/L Alkaline Phosphatase 76 (38-126) U/L Serum Total Protein 7.1 (6.3-8.2) g/dL Albumin 2.5 L (3.5-5.0) g/dL Slides for Path Review YES Radiology Exams: Radiology Procedures Category Date Time Status ABDOMEN AND PELVIS W/0 CONTRAS [CT] Routine Exams 06/26/22 09:50 Taken Multi-Disciplinary Progress Notes: Multi-Disciplinary Progress Notes 06/26/22 11:57 Case Management Note by Clarita Ingram PATIENT STILL ACUTELY ILL- WAITING FOR BED AT Initialized on 06/26/22 11:57 - END OF NOTE 06/25/22 15:45 Nutrition Note by Mahnaz Frederick F/u Note: Diet advanced to house regular. Pt refusing meals. adm weight 70kg; current weight 71.3 kg. Labs 9/6 = k+ 3.3, BUN 5 alb 2.6 hgb 8.2 hct 27.7. TPN @ 85mls/hour started today. Breakdown of calories/pro not received at this time. Will f/u prn. Note pt to transfer out to [facility] once bed is open. LEANNA HuynhCD Initialized on 06/25/22 15:45 - END OF NOTE 06/25/22 14:27 Case Management Note by Clarita Ingram PATIENT STILL WAITING ON PLACEMENT AT [facility] Initialized on 06/25/22 14:27 - END OF NOTE Assessment/Plan (1) Crohn's disease (regional enteritis) Current Visit: Yes Status: Acute Qualifiers: Gastrointestinal tract location: small and large intestine Digestive disease complication type: with fistula Qualified Code(s): K50.813 - Crohn's disease of both small and large intestine with fistula Assessment & Plan: Chief Complaint Diagnosis nausea, vomiting, abdominal pain for 2-3 days Allergies Allergy/AdvReac Type Severity Reaction Status Date / Time acetaminophen [From Tylenol] Allergy Severe Swelling Verified 06/21/22 22:42 of Tongue and Lips hydrocodone [From Lortab] Allergy Severe Swelling Verified 06/21/22 22:42 of Tongue and Lips natalizumab [From Tysabri] Allergy Severe Hives Verified 06/21/22 22:42 onion Allergy Severe Swelling Verified 06/21/22 22:42 of Tongue and Lips tomato Allergy Severe Tightness Verified 06/21/22 22:42 of Throat latex Allergy Intermediate Hives Verified 06/21/22 22:42 morphine AdvReac Severe Verified 06/21/22 22:42 Vital Signs (Last 24 hours) Temp Pulse Resp BP Pulse Ox 06/26/22 12:00 97.3 F 78 16 115/57 98 06/26/22 07:08 97.3 F 58 L 16 116/62 96 06/26/22 04:00 97.9 F 55 L 16 89/54 98 06/25/22 23:34 97.8 F 60 18 138/64 100 06/25/22 20:00 97.1 F 61 16 119/62 100 06/25/22 16:00 97.1 F 54 L 16 121/66 96 Home Medications Medication Instructions Recorded Confirmed Last Taken Type Fluconazole 200 mg PO DAILY 06/21/22 06/22/22 06/21/22 History Minocycline HCl 1 ea DAILY 06/21/22 06/22/22 06/21/22 History Potassium Chloride 40 meq PO UD 06/21/22 06/21/22 06/13/22 History Pyridoxine HCl (Vitamin B6) 220 mg DAILY 06/21/22 06/22/22 06/21/22 History [Vitamin B-6] Vitamin A Palmitate [Vitamin A] 3,000 units DAILY 06/21/22 06/22/22 06/21/22 History Zinc Gluconate [Zinc] 50 mg PO DAILY 06/21/22 06/22/22 06/21/22 History Current Medications Generic Name Dose Route Start Last Admin Trade Name Freq PRN Reason Stop Dose Admin Cyanocobalamin 1,000 mcg 06/29/22 10:00 Cyanocobalamin 1000 Mcg/Ml Vial IJ 07/29/22 09:59 Q30D ROMULO Ergocalciferol 50,000 unit 06/25/22 10:00 06/25/22 08:39 Ergocalciferol (Vitamin D2) 50,000 Unit Capsule PO 07/25/22 09:59 50,000 unit Q7D ROMULO Administration Fluconazole 200 mg 06/22/22 10:00 06/26/22 09:32 Fluconazole 100 Mg Tablet PO 07/22/22 09:59 200 mg DAILY ROMULO Administration Hydromorphone HCl 1 mg 06/21/22 21:15 06/26/22 12:43 Hydromorphone 1 Mg/1ml Inj 1 Mg/Ml Syringe IV 06/26/22 21:14 1 mg Q4H PRN PRN Administration PAIN Piperacillin Sod/Tazobactam 100 mls @ 200 mls/hr 06/22/22 00:00 06/26/22 05:25 Sod 3.375 gm/ Sodium Chloride IV 06/28/22 00:00 200 mls/hr Q6HT ROMULO Administration Multivitamins/Minerals 10 ml/ 2,064 mls @ 85 mls/hr 06/25/22 14:00 06/25/22 14:18 ZINC/COPPER/MANGANESE/SELENIUM IV 06/26/22 13:59 85 mls/hr 1 ml/ Amino Acids/ .Q24H ROMULO Administration Electrolytes/Dextrose Multivitamins/Minerals 10 ml/ 2,577 mls @ 85 mls/hr 06/26/22 14:00 ZINC/COPPER/MANGANESE/SELENIUM IV 07/26/22 13:59 1 ml/ Amino Acids/ .Q24H ROMULO Electrolytes/Dextrose Minocycline HCl 100 mg 06/22/22 10:00 06/26/22 09:33 Minocycline Hcl 100 Mg Capsule PO 07/22/22 09:59 100 mg DAILY ROMULO Administration Miscellaneous Information 1 each 06/22/22 09:30 Medication Intervention 1 Each Each 07/22/22 09:29 .RN TO CHECK WITH PT ROMULO Ondansetron HCl 4 mg 06/25/22 11:32 06/26/22 12:43 Ondansetron Hcl 4 Mg/2 Ml Vial IV 07/25/22 11:30 4 mg Q4H PRN PRN Administration NAUSEA/VOMITING Oxycodone HCl 5 mg 06/22/22 08:44 06/25/22 08:38 Oxycodone Hcl 5 Mg Ir Tab PO 06/27/22 08:43 5 mg Q4HPRN PRN Administration PAIN Pantoprazole Sodium 40 mg 06/21/22 21:15 06/25/22 20:38 Pantoprazole 40 Mg Vial IV 07/21/22 21:14 40 mg Q24H ROMULO Administration Potassium Chloride 40 meq 06/22/22 09:24 Potassium Chloride Tab 10 Meq Tab PO 07/22/22 09:23 DAILY PRN PRN leg cramps Pyridoxine HCl 200 mg 06/22/22 10:00 06/26/22 09:33 Pyridoxine Hcl 100 Mg Tablet PO 07/22/22 09:59 200 mg DAILY ROMULO Administration Zinc Gluconate 50 mg 06/22/22 10:00 06/26/22 09:33 Zinc Gluconate 50 Mg Tablet PO 07/22/22 09:59 50 mg DAILY ROMULO Administration Discontinued Medications Generic Name Dose Route Start Last Admin Trade Name Freq PRN Reason Stop Dose Admin Acetaminophen 650 mg 06/21/22 21:15 Acetaminophen 325 Mg Tablet PO 07/21/22 21:14 Q4H PRN PRN PAIN, FEVER, HEADACHE Hydromorphone HCl 1 mg 06/21/22 15:52 06/21/22 16:29 Hydromorphone 1 Mg/1ml Inj 1 Mg/Ml Syringe IV 06/21/22 15:53 1 mg STAT ONE Administration Hydromorphone HCl Confirm 06/21/22 16:26 Hydromorphone 1 Mg/1ml Inj 1 Mg/Ml Syringe Administered 06/21/22 16:27 Dose 1 mg .ROUTE .STK-MED ONE Sodium Chloride 1,000 mls @ 999 mls/hr 06/21/22 15:52 06/21/22 17:46 Sodium Chloride 0.9% 1000 Ml IV 06/21/22 16:52 Infused .Q1H1M STA Infusion Sodium Chloride Confirm 06/21/22 16:26 Sodium Chloride 0.9% 1000 Ml Administered 06/21/22 16:27 Dose 1,000 mls @ ud .ROUTE .STK-MED ONE Piperacillin Sod/Tazobactam 100 mls @ 200 mls/hr 06/21/22 19:15 06/21/22 19:35 Sod 3.375 gm/ Sodium Chloride IV 06/21/22 19:44 200 mls/hr STAT ONE Administration Sodium Chloride Confirm 06/21/22 19:34 Sodium Chloride 0.9% Administered 06/21/22 19:35 Dose 100 mls @ ud .ROUTE .STK-MED ONE Sodium Chloride Confirm 06/21/22 19:37 Sodium Chloride 100ml Mini-Bag Plus Administered 06/21/22 19:38 Dose 100 mls @ ud IV .STK-MED ONE Sodium Chloride 1,000 mls @ 100 mls/hr 06/21/22 21:15 06/25/22 07:28 Sodium Chloride 0.9% 1000 Ml IV 06/25/22 14:00 100 mls/hr .Q10H ROMULO Administration Sodium Chloride Confirm 06/22/22 00:03 Sodium Chloride 100ml Mini-Bag Plus Administered 06/22/22 00:04 Dose 100 mls @ ud IV .STK-MED ONE Sodium Chloride Confirm 06/22/22 05:36 Sodium Chloride 100ml Mini-Bag Plus Administered 06/22/22 05:37 Dose 100 mls @ ud IV .STK-MED ONE Potassium Chloride 20 meq in 100 mls @ 50 mls/hr 06/26/22 08:00 06/26/22 11:01 Potassium Chloride 20 Meq In Water 100ml IV 06/26/22 11:59 50 mls/hr Q2H ROMULO Administration Ondansetron HCl 4 mg 06/21/22 15:52 06/21/22 16:29 Ondansetron Hcl 4 Mg/2 Ml Vial IV 06/21/22 15:53 4 mg STAT ONE Administration Ondansetron HCl Confirm 06/21/22 16:26 Ondansetron Hcl 4 Mg/2 Ml Vial Administered 06/21/22 16:27 Dose 4 mg .ROUTE .STK-MED ONE Ondansetron HCl 4 mg 06/21/22 21:15 06/25/22 07:23 Ondansetron Hcl 4 Mg/2 Ml Vial IV 07/21/22 21:14 4 mg Q6H PRN PRN Administration NAUSEA/VOMITING Piperacillin Sod/Tazobactam Sod Confirm 06/21/22 19:33 Piperacillin/Tazobactam Sodium 3.375 Gm Vial Administered 06/21/22 19:34 Dose 3.375 gm IV .STK-MED ONE Piperacillin Sod/Tazobactam Sod Confirm 06/22/22 00:03 Piperacillin/Tazobactam Sodium 3.375 Gm Vial Administered 06/22/22 00:04 Dose 3.375 gm IV .STK-MED ONE Piperacillin Sod/Tazobactam Sod Confirm 06/22/22 05:36 Piperacillin/Tazobactam Sodium 3.375 Gm Vial Administered 06/22/22 05:37 Dose 3.375 gm IV .STK-MED ONE Sterile Water Confirm 06/21/22 21:41 Water For Injection,Sterile 10 Ml Vial Administered 06/21/22 21:42 Dose 10 ml IJ .STK-MED ONE Intake & Output (Last 24 hours) 06/24/22 06/25/22 06/26/22 06/27/22 11:59 11:59 11:59 11:59 Intake Total 3003 2654 1295 Output Total 1650 1400 2950 Balance 1353 1254 -1655 Weight 70.5 kg 71.3 kg 70.7 kg Laboratory Results (Last 24 hours) 06/26/22 06/26/22 06/26/22 08:00 04:45 04:45 WBC 5.0 RBC 2.81 L Hgb 7.2 L Hct 25.1 L MCV 89.3 MCH 25.6 L MCHC 28.7 L RDW 15.3 H Plt Count 206 MPV 10.5 Sodium 138 Potassium 3.1 L Chloride 107 Carbon Dioxide 25 Anion Gap 9.1 BUN 6 L Creatinine 0.87 Estimated GFR > 60.0 Glucose 133 H Calcium 7.8 L Magnesium 1.6 Total Bilirubin 0.20 AST 19 ALT 13 Alkaline Phosphatase 76 Serum Total Protein 7.1 Albumin 2.5 L Slides for Path Review YES Orders (Last 24 hours) Category Date Time Status In [Intake and Output] Q12H Care 06/26/22 08:00 Active Potassium [Order K Level 2 hours post-inf] 2 HRS POST K Care 06/26/22 09:36 Active -INFUSED ABDOMEN AND PELVIS W/0 CONTRAS [CT] Routine Exams 06/26/22 09:50 Taken ALBUMIN Routine Lab 06/28/22 04:00 Ordered ALBUMIN Routine Lab 06/30/22 04:00 Ordered CBC AM.LAB Lab 06/26/22 04:45 Completed CBC Routine Lab 06/28/22 04:00 Ordered CBC Routine Lab 06/30/22 04:00 Ordered CMP AM.LAB Lab 06/26/22 04:45 Completed CMP AM.LAB Lab 06/27/22 04:00 Ordered CMP AM.LAB Lab 06/28/22 04:00 Ordered CMP AM.LAB Lab 06/29/22 04:00 Ordered CMP AM.LAB Lab 06/30/22 04:00 Ordered MAGNESIUM AM.LAB Lab 06/27/22 04:00 Ordered MAGNESIUM AM.LAB Lab 06/28/22 04:00 Ordered MAGNESIUM AM.LAB Lab 06/29/22 04:00 Ordered MAGNESIUM AM.LAB Lab 06/30/22 04:00 Ordered MAGNESIUM Urgent Lab 06/26/22 08:00 Completed Total Protein Routine Lab 06/28/22 04:00 Ordered Total Protein Routine Lab 06/30/22 04:00 Ordered Aa 3.31 %/D9.8w/Fat/E-Lytes 10 [Kabiven - Cent TPN 2052 Med 06/25/22 14:00 Active ml] 2,053 ml Multivitamins 10 ml [Vitamins For Infusion 10 ML INJECTION] 10 ml Zinc/Copper/Manganese/Selenium [Tralement Vial] 1 ml IV 85 mls/hr Aa 3.31 %/D9.8w/Fat/E-Lytes 10 [Kabiven - Cent TPN Aa 3 Med 06/26/22 14:00 Active .31/Dex 9.8 + Lytes] 2,566 ml Multivitamins 10 ml [Vitamins For Infusion 10 ML INJECTION] 10 ml Zinc/Copper/Manganese/Selenium [Tralement Vial] 1 ml IV 85 mls/hr Cyanocobalamin 1000 Mcg/ml [Cyanocobalamin B-12 1000 Med 06/29/22 10:00 Active MCG/ML] 1,000 mcg IJ Q30D Potassium Chloride 20Meq/100Ml [POTASSIUM CHLORIDE 20 Med 06/26/22 08:00 Discontinued mEq IN WATER 100ML] 20 meq in 100 ml IV Q2H Patient Care Notes (Last 24 hours) 06/26/22 11:57 Case Management Note by Clarita Ingram PATIENT STILL ACUTELY ILL- WAITING FOR BED AT Initialized on 06/26/22 11:57 - END OF NOTE 06/26/22 11:02 Nursing Note by Maryse Aguilar Spoke with [facility] transfer center. Updated on patient's condition. No timeframe at this time on bed placement. [facility] stated that they will call once they have a bed open. Initialized on 06/26/22 11:02 - END OF NOTE 06/25/22 15:45 Nutrition Note by Mahnaz Frederick F/u Note: Diet advanced to house regular. Pt refusing meals. adm weight 70kg; current weight 71.3 kg. Labs 9/6 = k+ 3.3, BUN 5 alb 2.6 hgb 8.2 hct 27.7. TPN @ 85mls/hour started today. Breakdown of calories/pro not received at this time. Will f/u prn. Note pt to transfer out to [facility] once bed is open. GILMER Huynh Initialized on 06/25/22 15:45 - END OF NOTE 06/25/22 14:27 Case Management Note by Clarita Ingram PATIENT STILL WAITING ON PLACEMENT AT [facility] Initialized on 06/25/22 14:27 - END OF NOTE Code(s): K50.90 - CROHN'S DISEASE, UNSPECIFIED, WITHOUT COMPLICATIONS (2) Abdominal pain Current Visit: Yes Status: Acute Qualifiers: Abdominal location: generalized Qualified Code(s): R10.84 - Generalized abdominal pain Code(s): R10.9 - UNSPECIFIED ABDOMINAL PAIN (3) Cutaneous fistula Current Visit: Yes Status: Acute Code(s): L98.8 - OTH DISRD OF THE SKIN AND SUBCUTANEOUS TISSUE (4) Vomiting Current Visit: Yes Status: Acute Qualifiers: Vomiting type: unspecified Nausea presence: with nausea Qualified Code(s): R11.2 - Nausea with vomiting, unspecified Code(s): R11.10 - VOMITING, UNSPECIFIED (5) Hypokalemia Current Visit: No Status: Acute Code(s): E87.6 - HYPOKALEMIA
--- NOTE | 2022-06-26 13:58 | XRAY ---
Indication: Nausea, vomiting, and diarrhea. Multiple contiguous axial images obtained through the abdomen and pelvis without contrast. Comparison: June 21, 2022 Lung bases demonstrates new tiny nonspecific left effusion. Again 2 small left lower lobe cavitary lesions grossly unchanged. Heart not enlarged. Noncontrasted stomach and bowel loops remain nonobstructed again with midabdomen enterocolonic anastomosis and moderate mesenteric induration presumed postoperative. Stable left periumbilical percutaneous catheter with pigtail again in anterior mid abdomen, site of anastomosis. Again unable to determine true location of pigtail is in a fluid filled abscess or a bowel loop on this noncontrast exam. New tiny fluid along the left colic gutter. No free air. Again 12.6 cm splenomegaly, fatty liver, hysterectomy, and cholecystectomy. Remaining liver, pancreas, spleen, adrenal glands, kidneys, ureters, bladder, and aorta are unremarkable for noncontrast exam. Impression: 1. Grossly stable 2 small left lower lobe cavitary lesions. New tiny left effusion. Again rule out septic emboli. 2. Stable midabdomen postoperative changes with enterocolonic anastomosis and surrounding mesenteric induration. 3. Stable percutaneous pigtail catheter. Again unsure of pigtail location either in fluid-filled abscess versus bowel loop. Water soluble contrast injection through pigtail catheter with delayed imaging may yield further information. 4. Again incidental fatty liver and splenomegaly.
[2022-06-26] MEDS ORDERED: [UNRECOGNIZED DRUG - OTHER] IV SCH ×3 (14:00)
[2022-06-26] MEDS ORDERED: LYTES IV SCH ×3 (14:00)
[2022-06-26] MEDS ORDERED: DEX IV SCH ×3 (14:00)
[2022-06-26 20:36] VITALS: BP 116/64; PULSE 70; O2SAT 100
[2022-06-26] MEDS: PROTONIX 40 MG IV IV SCH (20:41)
--- NOTE | 2022-06-27 08:00 | PCM.DS ---
Discharge Summary Date of Admission: 06/21/22 21:14 Admitting Physician: HARSHIL KWON Consults: Consults on Case 06/21/22 21:15 Nutritional Consult ROUTINE Primary Care Provider: LEE JENKINS Allergies Allergies acetaminophen [From Tylenol] Allergy (Severe, Verified 06/21/22 22:42) Swelling of Tongue and Lips hydrocodone [From Lortab] Allergy (Severe, Verified 06/21/22 22:42) Swelling of Tongue and Lips natalizumab [From Tysabri] Allergy (Severe, Verified 06/21/22 22:42) Hives onion Allergy (Severe, Verified 06/21/22 22:42) Swelling of Tongue and Lips tomato Allergy (Severe, Verified 06/21/22 22:42) Tightness of Throat latex Allergy (Intermediate, Verified 06/21/22 22:42) Hives morphine Adverse Reaction (Severe, Verified 06/21/22 22:42) makes pt mad/angry/volitle Hospital Summary - Hospital Course Hospital Course: Chief Complaint Diagnosis nausea, vomiting, abdominal pain for 2-3 days Allergies Allergy/AdvReac Type Severity Reaction Status Date / Time acetaminophen [From Tylenol] Allergy Severe Swelling Verified 06/21/22 22:42 of Tongue and Lips hydrocodone [From Lortab] Allergy Severe Swelling Verified 06/21/22 22:42 of Tongue and Lips natalizumab [From Tysabri] Allergy Severe Hives Verified 06/21/22 22:42 onion Allergy Severe Swelling Verified 06/21/22 22:42 of Tongue and Lips tomato Allergy Severe Tightness Verified 06/21/22 22:42 of Throat latex Allergy Intermediate Hives Verified 06/21/22 22:42 morphine AdvReac Severe Verified 06/21/22 22:42 Vital Signs (Last 24 hours) Temp Pulse Resp BP Pulse Ox 06/26/22 20:00 97.4 F 70 16 116/64 100 06/26/22 16:00 97.3 F 69 16 129/67 96 06/26/22 12:00 97.3 F 78 16 115/57 98 Home Medications Medication Instructions Recorded Confirmed Last Taken Type Fluconazole 200 mg PO DAILY 06/21/22 06/22/22 06/21/22 History Minocycline HCl 1 ea DAILY 06/21/22 06/22/22 06/21/22 History Potassium Chloride 40 meq PO UD 06/21/22 06/21/22 06/13/22 History Pyridoxine HCl (Vitamin B6) 220 mg DAILY 06/21/22 06/22/22 06/21/22 History [Vitamin B-6] Vitamin A Palmitate [Vitamin A] 3,000 units DAILY 06/21/22 06/22/22 06/21/22 History Zinc Gluconate [Zinc] 50 mg PO DAILY 06/21/22 06/22/22 06/21/22 History Current Medications Discontinued Medications Generic Name Dose Route Start Last Admin Trade Name Freq PRN Reason Stop Dose Admin Acetaminophen 650 mg 06/21/22 21:15 Acetaminophen 325 Mg Tablet PO 07/21/22 21:14 Q4H PRN PRN PAIN, FEVER, HEADACHE Cyanocobalamin 1,000 mcg 06/29/22 10:00 Cyanocobalamin 1000 Mcg/Ml Vial IJ 07/29/22 09:59 Q30D ROMULO Ergocalciferol 50,000 unit 06/25/22 10:00 06/25/22 08:39 Ergocalciferol (Vitamin D2) 50,000 Unit Capsule PO 07/25/22 09:59 50,000 unit Q7D ROMULO Administration Fluconazole 200 mg 06/22/22 10:00 06/26/22 09:32 Fluconazole 100 Mg Tablet PO 07/22/22 09:59 200 mg DAILY ROMULO Administration Hydromorphone HCl 1 mg 06/21/22 15:52 06/21/22 16:29 Hydromorphone 1 Mg/1ml Inj 1 Mg/Ml Syringe IV 06/21/22 15:53 1 mg STAT ONE Administration Hydromorphone HCl Confirm 06/21/22 16:26 Hydromorphone 1 Mg/1ml Inj 1 Mg/Ml Syringe Administered 06/21/22 16:27 Dose 1 mg .ROUTE .STK-MED ONE Hydromorphone HCl 1 mg 06/21/22 21:15 06/26/22 21:07 Hydromorphone 1 Mg/1ml Inj 1 Mg/Ml Syringe IV 06/26/22 21:14 1 mg Q4H PRN PRN Administration PAIN Sodium Chloride 1,000 mls @ 999 mls/hr 06/21/22 15:52 06/21/22 17:46 Sodium Chloride 0.9% 1000 Ml IV 06/21/22 16:52 Infused .Q1H1M STA Infusion Sodium Chloride Confirm 06/21/22 16:26 Sodium Chloride 0.9% 1000 Ml Administered 06/21/22 16:27 Dose 1,000 mls @ ud .ROUTE .STK-MED ONE Piperacillin Sod/Tazobactam 100 mls @ 200 mls/hr 06/21/22 19:15 06/21/22 19:35 Sod 3.375 gm/ Sodium Chloride IV 06/21/22 19:44 200 mls/hr STAT ONE Administration Sodium Chloride Confirm 06/21/22 19:34 Sodium Chloride 0.9% Administered 06/21/22 19:35 Dose 100 mls @ ud .ROUTE .STK-MED ONE Sodium Chloride Confirm 06/21/22 19:37 Sodium Chloride 100ml Mini-Bag Plus Administered 06/21/22 19:38 Dose 100 mls @ ud IV .STK-MED ONE Sodium Chloride 1,000 mls @ 100 mls/hr 06/21/22 21:15 06/25/22 07:28 Sodium Chloride 0.9% 1000 Ml IV 06/25/22 14:00 100 mls/hr .Q10H ROMULO Administration Piperacillin Sod/Tazobactam 100 mls @ 200 mls/hr 06/22/22 00:00 06/26/22 18:49 Sod 3.375 gm/ Sodium Chloride IV 06/28/22 00:00 200 mls/hr Q6HT ROMULO Administration Sodium Chloride Confirm 06/22/22 00:03 Sodium Chloride 100ml Mini-Bag Plus Administered 06/22/22 00:04 Dose 100 mls @ ud IV .STK-MED ONE Sodium Chloride Confirm 06/22/22 05:36 Sodium Chloride 100ml Mini-Bag Plus Administered 06/22/22 05:37 Dose 100 mls @ ud IV .STK-MED ONE Multivitamins/Minerals 10 ml/ 2,064 mls @ 85 mls/hr 06/25/22 14:00 06/25/22 14:18 ZINC/COPPER/MANGANESE/SELENIUM IV 06/26/22 13:59 85 mls/hr 1 ml/ Amino Acids/ .Q24H ROMULO Administration Electrolytes/Dextrose Potassium Chloride 20 meq in 100 mls @ 50 mls/hr 06/26/22 08:00 06/26/22 11:01 Potassium Chloride 20 Meq In Water 100ml IV 06/26/22 11:59 50 mls/hr Q2H ROMULO Administration Multivitamins/Minerals 10 ml/ 2,577 mls @ 85 mls/hr 06/26/22 14:00 06/26/22 14:33 ZINC/COPPER/MANGANESE/SELENIUM IV 07/26/22 13:59 85 mls/hr 1 ml/ Amino Acids/ .Q24H ROMULO Administration Electrolytes/Dextrose Minocycline HCl 100 mg 06/22/22 10:00 06/26/22 09:33 Minocycline Hcl 100 Mg Capsule PO 07/22/22 09:59 100 mg DAILY ROMULO Administration Miscellaneous Information 1 each 06/22/22 09:30 Medication Intervention 1 Each Each 07/22/22 09:29 .RN TO CHECK WITH PT ROMULO Ondansetron HCl 4 mg 06/21/22 15:52 06/21/22 16:29 Ondansetron Hcl 4 Mg/2 Ml Vial IV 06/21/22 15:53 4 mg STAT ONE Administration Ondansetron HCl Confirm 06/21/22 16:26 Ondansetron Hcl 4 Mg/2 Ml Vial Administered 06/21/22 16:27 Dose 4 mg .ROUTE .STK-MED ONE Ondansetron HCl 4 mg 06/21/22 21:15 06/25/22 07:23 Ondansetron Hcl 4 Mg/2 Ml Vial IV 07/21/22 21:14 4 mg Q6H PRN PRN Administration NAUSEA/VOMITING Ondansetron HCl 4 mg 06/25/22 11:32 06/26/22 21:07 Ondansetron Hcl 4 Mg/2 Ml Vial IV 07/25/22 11:30 4 mg Q4H PRN PRN Administration NAUSEA/VOMITING Oxycodone HCl 5 mg 06/22/22 08:44 06/25/22 08:38 Oxycodone Hcl 5 Mg Ir Tab PO 06/27/22 08:43 5 mg Q4HPRN PRN Administration PAIN Pantoprazole Sodium 40 mg 06/21/22 21:15 06/26/22 20:41 Pantoprazole 40 Mg Vial IV 07/21/22 21:14 40 mg Q24H ROMULO Administration Piperacillin Sod/Tazobactam Sod Confirm 06/21/22 19:33 Piperacillin/Tazobactam Sodium 3.375 Gm Vial Administered 06/21/22 19:34 Dose 3.375 gm IV .STK-MED ONE Piperacillin Sod/Tazobactam Sod Confirm 06/22/22 00:03 Piperacillin/Tazobactam Sodium 3.375 Gm Vial Administered 06/22/22 00:04 Dose 3.375 gm IV .STK-MED ONE Piperacillin Sod/Tazobactam Sod Confirm 06/22/22 05:36 Piperacillin/Tazobactam Sodium 3.375 Gm Vial Administered 06/22/22 05:37 Dose 3.375 gm IV .STK-MED ONE Potassium Chloride 40 meq 06/22/22 09:24 Potassium Chloride Tab 10 Meq Tab PO 07/22/22 09:23 DAILY PRN PRN leg cramps Pyridoxine HCl 200 mg 06/22/22 10:00 06/26/22 09:33 Pyridoxine Hcl 100 Mg Tablet PO 07/22/22 09:59 200 mg DAILY ROMULO Administration Sterile Water Confirm 06/21/22 21:41 Water For Injection,Sterile 10 Ml Vial Administered 06/21/22 21:42 Dose 10 ml IJ .STK-MED ONE Zinc Gluconate 50 mg 06/22/22 10:00 06/26/22 09:33 Zinc Gluconate 50 Mg Tablet PO 07/22/22 09:59 50 mg DAILY ROMULO Administration Intake & Output (Last 24 hours) 06/24/22 06/25/22 06/26/22 06/27/22 11:59 11:59 11:59 11:59 Intake Total 3003 2654 1295 1324 Output Total 1650 1400 2950 Balance 1353 1254 -1655 1324 Weight 70.5 kg 71.3 kg 70.7 kg Laboratory Results (Last 24 hours) 06/26/22 06/26/22 15:54 08:00 Potassium 3.4 L Magnesium 1.6 Orders (Last 24 hours) Category Date Time Status In [Intake and Output] Q12H Care 06/26/22 08:00 Completed Potassium [Order K Level 2 hours post-inf] 2 HRS POST K Care 06/26/22 09:36 Completed -INFUSED ABDOMEN AND PELVIS W/0 CONTRAS [CT] Routine Exams 06/26/22 09:50 Completed K [Potassium] Urgent Lab 06/26/22 15:54 Completed MAGNESIUM Urgent Lab 06/26/22 08:00 Completed Aa 3.31 %/D9.8w/Fat/E-Lytes 10 [Kabiven - Cent TPN Aa 3 Med 06/26/22 14:00 Discontinued .31/Dex 9.8 + Lytes] 2,566 ml Multivitamins 10 ml [Vitamins For Infusion 10 ML INJECTION] 10 ml Zinc/Copper/Manganese/Selenium [Tralement Vial] 1 ml IV 85 mls/hr Cyanocobalamin 1000 Mcg/ml [Cyanocobalamin B-12 1000 Med 06/29/22 10:00 Discontinued MCG/ML] 1,000 mcg IJ Q30D Potassium Chloride 20Meq/100Ml [POTASSIUM CHLORIDE 20 Med 06/26/22 08:00 Di scontinued mEq IN WATER 100ML] 20 meq in 100 ml IV Q2H Patient Care Notes (Last 24 hours) 06/26/22 23:26 Nursing Note by Fide Howell 2300 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 family on phone w pt et aware of tx. report given to [facility] as well as . jasvir Carter Nurse recieing report. all questions anwered. Med surg phone # given at this time in case of further question. Pt left w belongings alert et oriented. No s/s distress. rates pain " ok" at this time. Initialized on 06/26/22 23:26 - END OF NOTE 06/26/22 18:40 Nursing Note by Tamy Herrera Attempted to call report again and was hung up on. Initialized on 06/26/22 18:40 - END OF NOTE 06/26/22 18:10 Nursing Note by Tamy Herrera Attempted to call report to Katherin (?) at but she stated she was in the middle of a med pass and asked for me to call her back. Initialized on 06/26/22 18:10 - END OF NOTE 06/26/22 18:07 Nursing Note by Maryse Aguilar transfer center contacted hospital. Spoke with Carmencita. She stated that they have assigned the bed to the patient at [facility]. The patient is to go to 3N room 3848. Accepting physician is Dr Hilario David. Updated vitals given at this time. Spoke with primary nurse Tamy gave her the number to call report [phone]. They put me through to [facility] to get transportation for the patient. They stated that they would call us back and give us an ETA. Initialized on 06/26/22 18:07 - END OF NOTE 06/26/22 11:57 Case Management Note by Clarita Ingram PATIENT STILL ACUTELY ILL- WAITING FOR BED AT Initialized on 06/26/22 11:57 - END OF NOTE 06/26/22 11:02 Nursing Note by Maryse Aguilar Spoke with [facility] transfer center. Updated on patient's condition. No timeframe at this time on bed placement. Carmencita stated that they will call once they have a bed open. Initialized on 06/26/22 11:02 - END OF NOTE - Vitals & Intake/Output Vital Signs: Vital Signs Temperature 97.4 F 06/26/22 20:00 Pulse Rate 70 06/26/22 20:00 Respiratory Rate 16 06/26/22 20:00 Blood Pressure 116/64 06/26/22 20:00 O2 Sat by Pulse Oximetry 100 06/26/22 20:00 Intake & Output: Intake & Output 06/24/22 06/25/22 06/26/22 06/27/22 11:59 11:59 11:59 11:59 Intake Total 3003 2654 1295 1324 Output Total 1650 1400 2950 Balance 1353 1254 -1655 1324 Weight 70.5 kg 71.3 kg 70.7 kg - Lab Result Diagrams: 06/26/22 04:45 06/26/22 15:54 Lab Results-Last 24 Hrs: Lab Results-Last 24 Hours 06/26/22 06/26/22 Range/Units 08:00 15:54 Potassium 3.4 L (3.5-5.1) mmol/L Magnesium 1.6 (1.6-2.3) mg/dL Micro Results-Entire Visit: Microbiology 06/21/22 17:14 Urine Culture - Final Urine, Void <10K NORMAL SKIN DONN PROBABLE SKIN CONTAMINANT - Radiology Exams Ordered Rad Exams-Entire Visit: Radiology Procedures Category Date Time Status ABDOMEN AND PELVIS W/0 CONTRAS [CT] Routine Exams 06/26/22 09:50 Completed - Procedures and Test Procedures and Tests throughout Hospitalization: Therapy Orders & Screens 06/22/22 08:00 PT Screen per Nursing Assess ONCE Comment: Protocol Order Physician Instructions: Greater than 3 points order PT Admission Screenin Reason For Exam: Triggered on Admission Diagnosis: Mucocutaneous Fistula, ABD pain Open Wound/Cellutlitis/Pressure Ulcers: Yes: incision w/ drainage Acute Fx/ORIF/Change in wt bearing status: No Severe MUSCULOSKELETAL pain: Yes ADL Dysfunction: Yes Acute CVA w/Hemiparesis/Hemiplegia: No Sprain/Strain: No Acute Post-op Mobility Dysfunction: No Total Points: 13 ST Screen per Nursing Assess ONCE Comment: Protocol Order Physician Instructions: Greater than [address] Admission Screening Reason For Exam: Triggered on Admission Diagnosis: Mucocutaneous Fistula, ABD pain CVA/Dyshpagia/Aphasia: No Cognitive Deficits: No Dehydration/Nutrition Deficit: Yes Reflux: Yes Oral-Motor Difficulties: No Pneumonia: No Correction Resident: No Total Points: 8 06/22/ 09:00 OT Screen per Nursing Assess ONCE Comment: Protocol Order Physician Instructions: Greater than 3 points order OT Admission Screening Reason For Exam: Triggered on Admission Diagnosis: Mucocutaneous Fistula, ABD pain Open Wound/Cellutlitis/Pressure Ulcers: Yes: incision w/ drainage Acute Fx/ORIF/Change in wt bearing status: No Severe MUSCULOSKELETAL pain: Yes ADL Dysfunction: Yes Acute CVA w/Hemiparesis/Hemiplegia: No Sprain/Strain: No Acute Post-op Mobility Dysfunction: No Total Points: 13 Discharge Exam General Appearance: no apparent distress, alert Neurologic Exam: alert, oriented x 3, cooperative, normal mood/affect, nml cerebellar function, sensation nml, No motor deficits Eye Exam: PERRL, EOMI, eyes nml inspection Ears, Nose, Throat Exam: normal ENT inspection, pharynx normal, moist mucous membranes Neck Exam: normal inspection, non-tender, supple, full range of motion Respiratory Exam: normal breath sounds, lungs clear, No respiratory distress Cardiovascular Exam: regular rate/rhythm, normal heart sounds Gastrointestinal/Abdomen Exam: soft, No tenderness, No mass Pelvic Exam: deferred Rectal Exam: deferred Back Exam: normal inspection, normal range of motion, No CVA tenderness, No vertebral tenderness Extremity Exam: normal inspection, normal range of motion Skin Exam: normal color, warm, dry Final Diagnosis/Problem List - Final Discharge Diagnosis/Problem (1) Crohn's disease (regional enteritis) Status: Acute Code(s): K50.90 - CROHN'S DISEASE, UNSPECIFIED, WITHOUT COMPLICATIONS (2) Abdominal pain Status: Acute Code(s): R10.9 - UNSPECIFIED ABDOMINAL PAIN (3) Cutaneous fistula Status: Acute Code(s): L98.8 - OTH DISRD OF THE SKIN AND SUBCUTANEOUS TISSUE (4) Vomiting Status: Acute Code(s): R11.10 - VOMITING, UNSPECIFIED (5) Hypokalemia Status: Acute Code(s): E87.6 - HYPOKALEMIA - Discharge Discharge Date: 06/26/22 Disposition: DC TO OTHER HOSP Condition: Stable Prescriptions: No Action Ergocalciferol (Vitamin D2) [Vitamin D2] 50,000 unit PO Q7D Oxycodone HCl 5 mg PO Q4HPRN PRN PRN Reason: Pain Cyanocobalamin 1000 Mcg/ml [Cyanocobalamin B-12 1000 MCG/ML] 1,000 mcg IJ DIRECTIONS UNKNOWN Fluconazole 200 mg PO DAILY Zinc Gluconate [Zinc] 50 mg PO DAILY Minocycline HCl 1 ea DAILY Vitamin A Palmitate [Vitamin A] 3,000 units DAILY Pyridoxine HCl (Vitamin B6) [Vitamin B-6] 220 mg DAILY Potassium Chloride 40 meq PO UD Additional Instructions: -FOLLOW UP WITH YOUR SURGEON DR. DAVID PREVIOUSLY ARRANGED ON July @ 2:30. Follow up with: LEE JENKINS MD [Primary Care Provider] - Forms: Patient Portal Information
[2022-06-29] MEDS ORDERED: Cyanocobalamin B-12 1000 MCG/ML IJ SCH (10:00)
== END 2022-06-26 23:00 | DRG 386 ==
LOC: ED 15:30 → MED SURG 21:14 → OBSVTOIN 21:14
PROVIDERS: ADMIT General Practice; ATTEND General Practice
DX: K50.813 Crohn's disease of both small and large intestine with fistula (principal); T81.40XA Infection following a procedure, unspecified, initial encounter; R10.9 Unspecified abdominal pain; L98.8 Other specified disorders of the skin and subcutaneous tissue; R11.10 Vomiting, unspecified; E87.6 Hypokalemia; R11.2 Nausea with vomiting, unspecified; R56.9 Unspecified convulsions; F41.9 Anxiety disorder, unspecified; K21.9 Gastro-esophageal reflux disease without esophagitis; Z79.899 Other long term (current) drug therapy; Z20.828 Contact with and (suspected) exposure to other viral communicable diseases; Z85.42 Personal history of malignant neoplasm of other parts of uterus
CPT/HCPCS: 0241U; 36415; 70450; 74176; 80053; 81015; 82150; 83605; 83690; 83735; 84132; 85025; 85027; 87086; 96360; 96365; 96374; 96375; 99285; J1170; J2405; J3480; A9270-GY

== ENCOUNTER 2022-07-02 15:54 | Observation (INO) | payer MEDICARE ==
--- NOTE | 2022-07-02 16:46 | ERPHSYRPT ---
- History of Present Illness Historian: patient Exam Limitations: other (Poor historian) Patient Subjective Stated Complaint: Fever/abdominal pain Triage Nursing Assessment: Patient ambulated back to ED and transferred self to bed. Patient A+O X 3. Patient's skin pink, warm and dry. Patient complains of fever and abdominal pain. Patient was just released on Thursday06/29/2022 from [facility]. Patient's home health nurse was there today and told patient to come to ED for increased temp and heart rate. Patient has healing surgical wound to abdomen from Bowel resection in March. Patient has dressing with notable yellow foul smelling drainage. Physician History: 42 yo F s/p bowel resection for Crohn's Dz on 04/03/22 at [facility] and who was discharged from there on on 06/29/22 presents per her home health nurse due to tachycardia/subjective fever/abdominal pain. Pt has a NG tube/G-tube/Mid-line. She is on IV antibiotics at home for chronic, draining laparotomy incision. She has chronic diarrhea. Pt denies N/V/dysuria/hematuria/chest pain/cough/coryza. Pt has been unable to take her pain meds. Timing/Duration: today Activities at Onset: rest Quality: aching Abdominal Pain Onset Location: generalized abdomen Pain Radiation: no radiation Severity of Pain-Max: moderate Severity of Pain-Current: moderate Modifying Factors: Improves With: nothing Associated Symptoms: diarrhea, fever/chills, fatigue, loss of appetite, weakness, No back, No chest pain, No diaphoresis, No headache, No heartburn, No nausea, No neck pain, No rash, No shortness of breath, No syncope, No vomiting Previous symptoms: same symptoms as today Allergies/Adverse Reactions: acetaminophen [From Tylenol] Allergy (Severe, Verified 07/02/22 16:06) Swelling of Tongue and Lips hydrocodone [From Lortab] Allergy (Severe, Verified 07/02/22 16:06) Swelling of Tongue and Lips natalizumab [From Tysabri] Allergy (Severe, Verified 07/02/22 16:06) Hives onion Allergy (Severe, Verified 07/02/22 16:06) Swelling of Tongue and Lips tomato Allergy (Severe, Verified 07/02/22 16:06) Tightness of Throat latex Allergy (Intermediate, Verified 07/02/22 16:06) Hives morphine Adverse Reaction (Severe, Verified 07/02/22 16:06) makes pt mad/angry/volitle Home Medications: Cyanocobalamin 1000 Mcg/ml [Cyanocobalamin B-12 1000 MCG/ML] 1,000 mcg IJ DIRECTIONS UNKNOWN 05/14/22 [History] Ergocalciferol (Vitamin D2) [Vitamin D2] 50,000 unit PO Q7D 05/14/22 [History] Oxycodone HCl 5 mg PO Q4HPRN PRN 05/14/22 [History] Fluconazole 200 mg PO DAILY 06/21/22 [History] Minocycline HCl 1 ea DAILY 06/21/22 [History] Potassium Chloride 40 meq PO UD 06/21/22 [History] Pyridoxine HCl (Vitamin B6) [Vitamin B-6] 220 mg DAILY 06/21/22 [History] Vitamin A Palmitate [Vitamin A] 3,000 units DAILY 06/21/22 [History] Zinc Gluconate [Zinc] 50 mg PO DAILY 06/21/22 [History] Hx Tetanus, Diphtheria Vaccination/Date Given: Yes Hx Influenza Vaccination/Date Given: No Hx Pneumococcal Vaccination/Date Given: No Immunizations Up to Date: Yes Travel Risk - International Travel Have you traveled outside of the country in past 3 weeks: No - Coronavirus Screening Are you exhibiting any of the following symptoms?: No Close contact with a COVID-19 positive Pt in past 14-21 Days: No - Vaccine Status Have you recieved a Covid-19 vaccination: Yes Legal Officer: Unknown - Vaccination Dates Dates if Unknown: 2020 - Review of Systems Constitutional: No Symptoms, Fever, Chills, Fatigue Eyes: No Symptoms Ears, Nose, & Throat: No Symptoms Respiratory: No Symptoms Cardiac: No Symptoms Abdominal/Gastrointestinal: No Symptoms, Abdominal Pain, Diarrhea, Appetite Changes Genitourinary Symptoms: No Symptoms Musculoskeletal: No Symptoms Skin: No Symptoms Neurological: No Symptoms Psychological: No Symptoms Endocrine: No Symptoms Hematologic/Lymphatic: No Symptoms Immunological/Allergic: No Symptoms - Past Medical History Pertinent Past Medical History: Yes Neurological History: Migraines, Other ENT History: No Pertinent History Cardiac History: No Pertinent History Respiratory History: No Pertinent History Endocrine Medical History: No Pertinent History Musculoskeletal History: No Pertinent History GI Medical History: Crohns Disease, GERD, Ulcer History: No Pertinent History Psycho-Social History: Anxiety, Depression Female Reproductive Disorders: Fibroids, Uterine Cancer Other Medical History: unknown source of acute kidney failure 04/28/2022. 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 - Past Surgical History Past Surgical History: Yes Neuro Surgical History: No Pertinent History Cardiac: No Pertinent History Respiratory: No Pertinent History Gastrointestinal: Cholecystectomy, Other Genitourinary: No Pertinent History Musculoskeletal: Orthopedic Surgery Female Surgical History: Hysterectomy, Dilation & Curettage, Other Other Surgical History: small intestine resect 4-5 times, pins R foot, multiple port placement - Social History Smoking Status: Former smoker Exposure to second hand smoke: Yes Drug Use: marijuana Patient Lives Alone: No - Female History Hx Last Menstrual Period: hysterectomy Hx Now: No - Nursing Vital Signs Nursing Vital Signs: Initial Vital Signs Temperature 99.0 F 07/02/22 16:11 Pulse Rate 135 H 07/02/22 16:11 Respiratory Rate 18 07/02/22 16:11 Blood Pressure 145/91 07/02/22 16:11 O2 Sat by Pulse Oximetry 98 07/02/22 16:11 Pain Scale Pain Intensity 9 Tachy - Physical Exam General Appearance: no apparent distress Eye Exam: PERRL/EOMI, eyes nml inspection Ears, Nose, Throat Exam: normal ENT inspection, TMs normal, pharynx normal Neck Exam: normal inspection, non-tender, supple, full range of motion, No meningismus, No mass, No Brudzinski, No Kernig's Respiratory Exam: airway intact, crackles/rales (Faint rales at bases B), No respiratory distress Cardiovascular Exam: tachycardia, capillary refill <2 sec Gastrointestinal/Abdomen Exam: soft, normal bowel sounds, tenderness (Mild diffuse TTP), other (White incisional drainage) Back Exam: normal inspection, normal range of motion, No CVA tenderness, No vertebral tenderness Extremity Exam: normal inspection, normal range of motion Neurologic Exam: alert, oriented x 3, cooperative, food service ambassador II-XII nml as tested, normal mood/affect, nml cerebellar function, nml station & gait, sensation nml Skin Exam: normal color, warm, dry Lymphatic Exam: No adenopathy SpO2 Interpretation: normal SpO2: 98 O2 Delivery: Room Air - Course Nursing assessment & vital signs reviewed: Yes - CT Exams Abdomen/Pelvis CT Interpretation: Discussed w/radiologist (CT ab-pelvis wo-feeding tube-nothing acute) Ordered Tests: Active Orders 24 hr Category Date Time Status Bedrest with BRP/BSC ROUTINE Activity 07/02/22 21:05 Active Code Status Order ROUTINE Care 07/02/22 21:03 Active IV Care Q6H Care 07/02/22 21:[address] in Observation ROUTINE Care 07/02/22 21:03 Active Vital Signs Q4H Care 07/02/22 21:03 Active NPO Diet 07/02/22 21:05 Active ABDOMEN AND PELVIS W/0 CONTRAS [CT] Stat Exams 07/02/22 16:40 Taken AMYLASE Stat Lab 07/02/22 16:30 Completed CBC W DIFF AM.LAB Lab 07/03/22 04:00 Ordered CBC W DIFF Stat Lab 07/02/22 16:30 Completed CMP AM.LAB Lab 07/03/22 04:00 Ordered CMP Stat Lab 07/02/22 16:30 Completed CULTURE,URINE Stat Lab 07/02/22 16:44 Received LIPASE Stat Lab 07/02/22 16:30 Completed Lactic Acid Stat Lab 07/02/22 16:49 Completed UA W/RFX CULTURE Stat Lab 07/02/22 16:44 Completed Transfer Order Routine Transfer 07/02/22 Ordered Medication Summary Generic Name Dose Route Start Last Admin Trade Name Freq PRN Reason Stop Dose Admin Hydromorphone HCl 1 mg 07/02/22 21:03 Hydromorphone 1 Mg/1ml Inj 1 Mg/Ml Syringe IV 07/07/22 21:02 Q4H PRN PRN PAIN Sodium Chloride 1,000 mls @ 100 mls/hr 07/02/22 21:15 07/02/22 21:10 Sodium Chloride 0.9% 1000 Ml IV 08/01/22 21:14 100 mls/hr .Q10H ROMULO Administration Cefazolin Sodium/Dextrose 2 gm in 50 mls @ 100 mls/hr 07/02/22 22:00 Cefazolin 2 Gm-D5w Bag IV 07/05/22 21:59 Q8HT ROMULO Ondansetron HCl 4 mg 07/02/22 21:03 Ondansetron Hcl 4 Mg/2 Ml Vial IV 08/01/22 21:02 Q6H PRN PRN NAUSEA/VOMITING Discontinued Medications Generic Name Dose Route Start Last Admin Trade Name Freq PRN Reason Stop Dose Admin Fentanyl Citrate 50 mcg 07/02/22 19:24 07/02/22 19:33 Fentanyl Citrate 100 Mcg/2 Ml* Vial IV 07/02/22 19:25 50 mcg STAT ONE Administration Fentanyl Citrate Confirm 07/02/22 19:30 Fentanyl Citrate 100 Mcg/2 Ml* Vial Administered 07/02/22 19:31 Dose 100 mcg .ROUTE .STK-MED ONE Hydromorphone HCl 1 mg 07/02/22 21:08 07/02/22 21:10 Hydromorphone 1 Mg/1ml Inj 1 Mg/Ml Syringe IV 07/02/22 21:09 1 mg STAT ONE Administration Sodium Chloride 1,000 mls @ 999 mls/hr 07/02/22 19:24 07/02/22 20:34 Sodium Chloride 0.9% 1000 Ml IV 07/02/22 20:24 Infused .Q1H1M STA Infusion Sodium Chloride Confirm 07/02/22 19:30 Sodium Chloride 0.9% 1000 Ml Administered 07/02/22 19:31 Dose 1,000 mls @ ud .ROUTE .STK-MED ONE Cefazolin Sodium/Dextrose 1 gm in 50 mls @ 100 mls/hr 07/02/22 22:00 Kefzol 1 Gm/50 Ml Premix IV 07/05/22 21:59 Q8HT ROMULO Cefazolin Sodium/Dextrose 2 gm in 50 mls @ 100 mls/hr 07/02/22 21:08 07/02/22 21:14 Cefazolin 2 Gm-D5w Bag IV 07/02/22 21:37 Not Given STAT STA Cefazolin Sodium/Dextrose 1 gm in 50 mls @ 100 mls/hr 07/02/22 21:14 07/02/22 21:49 Kefzol 1 Gm/50 Ml Premix IV 07/02/22 21:43 Infused STAT STA Infusion Cefazolin Sodium/Dextrose 1 gm in 50 mls @ 100 mls/hr 07/02/22 21:15 07/02/22 21:49 Kefzol 1 Gm/50 Ml Premix IV 07/02/22 21:44 Infused STAT STA Infusion Cefazolin Sodium/Dextrose Confirm 07/02/22 21:16 Kefzol 1 Gm/50 Ml Premix Administered 07/02/22 21:17 Dose 2 gm in 100 mls @ ud IV .STK-MED ONE Ondansetron HCl 4 mg 07/02/22 19:28 07/02/22 19:33 Ondansetron Hcl 4 Mg/2 Ml Vial IV 07/02/22 19:29 4 mg STAT ONE Administration Ondansetron HCl Confirm 07/02/22 19:29 Ondansetron Hcl 4 Mg/2 Ml Vial Administered 07/02/22 19:30 Dose 4 mg .ROUTE .STK-MED ONE Lab/Rad Data: Laboratory Result Diagrams 07/02/22 16:30 07/02/22 16:30 Laboratory Results 07/02/22 07/02/22 07/02/22 Range/Units 16:49 16:44 16:40 WBC (4.0-10.5) x10^3/uL RBC (4.1-5.4) x10^6/uL Hgb (12.0-16.0) g/dL Hct (35-47) % MCV (78-100) fL MCH (26-32) pg MCHC (32-36) g/dL RDW (11.5-14.0) % Plt Count (150-450) x10^3/uL MPV (7.5-11.0) fL Gran % (36.0-66.0) % Immature Gran % (Auto) (0.00-0.4) % Nucleat RBC Rel Count (0.00-0.1) % Eos # (Auto) (0-0.5) x10^3/uL Immature Gran # (Auto) (0.00-0.03) x10^3u/L Absolute Lymphs (auto) (1.0-4.6) x10^3/uL Absolute Monos (auto) (0.0-1.3) x10^3/uL Absolute Nucleated RBC (0.00-0.01) x10^3u/L Lymphocytes % (24.0-44.0) % Monocytes % (0.0-12.0) % Eosinophils % (0.00-5.0) % Basophils % (0.0-0.4) % Absolute Granulocytes (1.4-6.9) x10^3/uL Basophils # (0-0.4) x10^3/uL Sodium (137-145) mmol/L Potassium (3.5-5.1) mmol/L Chloride (98-107) mmol/L Carbon Dioxide (22-30) mmol/L Anion Gap (5-15) MEQ/L BUN (7-17) mg/dL Creatinine (0.52-1.04) mg/dL Estimated GFR ML/MIN Glucose (74-106) mg/dL Lactic Acid 1.5 (0.4-2.0) Calcium (8.4-10.2) mg/dL Total Bilirubin (0.2-1.3) mg/dL AST (14-36) U/L ALT (0-35) U/L Alkaline Phosphatase (38-126) U/L Serum Total Protein (6.3-8.2) g/dL Albumin (3.5-5.0) g/dL Amylase (30-110) U/L Lipase (23-300) U/L Urinalys Dipstick Clnc MAIN LAB Urine Color YELLOW (YELLOW) Urine Appearance SLIGHTLY CLOUDY (CLEAR) Urine pH 5.5 (5-6) Ur Specific [place] >=1.030 (1.005-1.025) POC Urine Protein Conf 100 (Negative) Urine Ketones TRACE (NEGATIVE) Urine Nitrite NEGATIVE (NEGATIVE) Urine Bilirubin NEGATIVE (NEGATIVE) Urine Urobilinogen 0.2 (0-1) mg/dL Urine Leukocytes NEGATIVE (NEGATIVE) Urine WBC (Auto) 6-10 (0-5) /HPF Urine RBC (Auto) 6-10 (0-2) /HPF Urine Bacteria (Auto) FEW (NEGATIVE) /HPF Urine RBC TRACE-INTACT (0-5) Alonso/ul Granular Casts (Auto) 2-5 (NEGATIVE) /LPF Urine Mucus (Auto) SLIGHT (NEGATIVE) /HPF Ur Culture Indicated? YES Urine Glucose NEGATIVE (NEGATIVE) mg/dL Influenza Type A Ag NEGATIVE (NEGATIVE) Influenza Type B Ag NEGATIVE (NEGATIVE) RSV (PCR) NEGATIVE (Negative) SARS-CoV-2 (PCR) NEGATIVE (NEGATIVE) 07/02/22 07/02/22 Range/Units 16:30 16:30 WBC 9.6 (4.0-10.5) x10^3/uL RBC 3.36 L (4.1-5.4) x10^6/uL Hgb 9.0 L (12.0-16.0) g/dL Hct 29.7 L (35-47) % MCV 88.4 (78-100) fL MCH 26.8 (26-32) pg MCHC 30.3 L (32-36) g/dL RDW 16.9 H (11.5-14.0) % Plt Count 324 (150-450) x10^3/uL MPV 10.6 (7.5-11.0) fL Gran % 76.4 H (36.0-66.0) % Immature Gran % (Auto) 0.4 (0.00-0.4) % Nucleat RBC Rel Count 0.0 (0.00-0.1) % Eos # (Auto) 0.03 (0-0.5) x10^3/uL Immature Gran # (Auto) 0.04 H (0.00-0.03) x10^3u/L Absolute Lymphs (auto) 1.05 (1.0-4.6) x10^3/uL Absolute Monos (auto) 1.13 (0.0-1.3) x10^3/uL Absolute Nucleated RBC 0.00 (0.00-0.01) x10^3u/L Lymphocytes % 10.9 L (24.0-44.0) % Monocytes % 11.8 (0.0-12.0) % Eosinophils % 0.3 (0.00-5.0) % Basophils % 0.2 (0.0-0.4) % Absolute Granulocytes 7.34 H (1.4-6.9) x10^3/uL Basophils # 0.02 (0-0.4) x10^3/uL Sodium 137 (137-145) mmol/L Potassium 3.8 (3.5-5.1) mmol/L Chloride 106 (98-107) mmol/L Carbon Dioxide 23 (22-30) mmol/L Anion Gap 12.6 (5-15) MEQ/L BUN 16 (7-17) mg/dL Creatinine 0.84 (0.52-1.04) mg/dL Estimated GFR > 60.0 ML/MIN Glucose 104 (74-106) mg/dL Lactic Acid (0.4-2.0) Calcium 8.4 (8.4-10.2) mg/dL Total Bilirubin 0.40 (0.2-1.3) mg/dL AST 23 (14-36) U/L ALT 12 (0-35) U/L Alkaline Phosphatase 114 (38-126) U/L Serum Total Protein 9.3 H (6.3-8.2) g/dL Albumin 3.6 (3.5-5.0) g/dL Amylase 287 H (30-110) U/L Lipase 1538 H (23-300) U/L Urinalys Dipstick Clnc Urine Color (YELLOW) Urine Appearance (CLEAR) Urine pH (5-6) Ur Specific [place] (1.005-1.025) POC Urine Protein Conf (Negative) Urine Ketones (NEGATIVE) Urine Nitrite (NEGATIVE) Urine Bilirubin (NEGATIVE) Urine Urobilinogen (0-1) mg/dL Urine Leukocytes (NEGATIVE) Urine WBC (Auto) (0-5) /HPF Urine RBC (Auto) (0-2) /HPF Urine Bacteria (Auto) (NEGATIVE) /HPF Urine RBC (0-5) Alonso/ul Granular Casts (Auto) (NEGATIVE) /LPF Urine Mucus (Auto) (NEGATIVE) /HPF Ur Culture Indicated? Urine Glucose (NEGATIVE) mg/dL Influenza Type A Ag (NEGATIVE) Influenza Type B Ag (NEGATIVE) RSV (PCR) (Negative) SARS-CoV-2 (PCR) (NEGATIVE) - Progress Progress: improved Progress Note: 07/02/22 19:[address] David at 1L NS bolus 07/02/22 19:29 50mcg IV Fentanyl/4mg IV Zofran 07/02/22 21:01 Pt first to get bed at but will not get bed until AM. Dr. Larry contacted and asked if Dr. Lopez would care for pt since he was admitting physician last week. Ok for admit per Dr. Lopez. 07/02/22 21:10 07/02/22 21:50 2gm IV Ancef 1mg IV Dilaudid Counseled pt/family regarding: lab results, diagnosis, need for follow-up, rad results - Departure Departure Disposition: Observation Clinical Impression: Pancreatitis, UTI (urinary tract infection) Condition: Stable Critical Care Time: No Referrals: LEE EJNKINS MD [Primary Care Provider] - Follow up/PCP as directed
[2022-07-02 16:59] LABS: Absolute Neutrophil Ct (ANC) 7.34 x10^3/uL (1.4-6.9); Basophil (Absolute #) 0.02 x10^3/uL (0-0.4); Eosinophil % 0.3 % (0.00-5.0); Eosinophil (Absolute #) 0.03 x10^3/uL (0-0.5); Hematocrit 29.7 % (35-47); Lymphocyte (Absolute #) 1.05 x10^3/uL (1.0-4.6); Lymphocytes % 10.9 % (24.0-44.0); Mean Cell Volume 88.4 fL (78-100); Mean Corpuscular Hemoglobin 26.8 pg (26-32); Mean Corpuscular Hgb Concent. 30.3 g/dL (32-36); Mean Platelet Volume 10.6 fL (7.5-11.0); Monocyte (Absolute #) 1.13 x10^3/uL (0.0-1.3); Monocytes % 11.8 % (0.0-12.0); Neutrophil % 76.4 % (36.0-66.0); Platelet Count 324 x10^3/uL (150-450); Red Blood Count 3.36 x10^6/uL (4.1-5.4); Red Cell Distribution Width 16.9 % (11.5-14.0); White Blood Count 9.6 x10^3/uL (4.0-10.5)
[2022-07-02 17:07] LABS: Bacteria FEW /HPF (NEGATIVE); Mucus SLIGHT /HPF (NEGATIVE)
[2022-07-02 17:08] LABS: ALBUMIN 3.6 g/dL (3.5-5.0); ALKALINE PHOSPHATASE 114 U/L (38-126); AMYLASE 287 U/L (30-110); ANION GAP 12.6 MEQ/L (5-15); BLOOD UREA NITROGEN 16 mg/dL (7-17); CHLORIDE 106 mmol/L (98-107); Calcium 8.4 mg/dL (8.4-10.2); Carbon Dioxide 23 mmol/L (22-30); Creatinine 1 0.84 mg/dL (0.52-1.04); EST GLOMERULAR FILTRATION RATE > 60.0 ML/MIN; Glucose 104 mg/dL (74-106); LIPASE 1538 U/L (23-300); Potassium 3.8 mmol/L (3.5-5.1); SGOT/AST 23 U/L (14-36); SGPT/ALT 12 U/L (0-35); SODIUM 137 mmol/L (137-145); Total Protein 9.3 g/dL (6.3-8.2)
[2022-07-02 17:11] LABS: Appearance SLIGHTLY CLOUDY (CLEAR); Bilirubin NEGATIVE (NEGATIVE); Glucose NEGATIVE (NEGATIVE); Ketones TRACE (NEGATIVE); Nitrite NEGATIVE (NEGATIVE); Ph 5.5 (5-6); Protein,Urine Dip 100 (Negative); RBC TRACE-INTACT Ery/ul (0-5); Specific Gravity >=1.030 (1.005-1.025); Urine Cultured Indicated? YES; Urobilinogen 0.2 mg/dL (0-1)
[2022-07-02 17:12] LABS: Dipstick done @ ? MAIN LAB
[2022-07-02 17:53] LABS: INFLUENZA A NEGATIVE (NEGATIVE); INFLUENZA B NEGATIVE (NEGATIVE); RESPIRATORY SYNCTIAL VIRUS NEGATIVE (Negative); SARS-CoV-2 Xpert Express NEGATIVE (NEGATIVE)
[2022-07-02] MEDS ORDERED: Sodium Chloride 0.9% 1000 ML 1,000 ML IV STA (19:24)
[2022-07-02] MEDS ORDERED: SUBLIMAZE 100 MCG/2 ML IV ONE (19:24)
[2022-07-02] MEDS ORDERED: Zofran 4 MG/2 ML VIAL IV ONE ×2 (19:28→21:52)
[2022-07-02] MEDS ORDERED: Zofran 4 MG/2 ML VIAL ONE (19:29)
[2022-07-02] MEDS ORDERED: Sodium Chloride 0.9% 1000 ML 1,000 ML ONE (19:30)
[2022-07-02] MEDS ORDERED: SUBLIMAZE 100 MCG/2 ML ONE (19:30)
[2022-07-02] MEDS ORDERED: Zofran 4 MG/2 ML VIAL IV PRN (21:03)
[2022-07-02] MEDS ORDERED: CEFAZOLIN 2 GM-D5W BAG** 2 GM/50 ML ML IV STA (21:08)
[2022-07-02] MEDS ORDERED: Hydromorphone 1 mg/ml Injection IV ONE (21:08)
[2022-07-02] MEDS ORDERED: KEFZOL 1 GM/50 ML PREMIX** 1 GM/50 ML IVPB IV STA ×2 (21:14→21:15)
[2022-07-02] MEDS ORDERED: Sodium Chloride 0.9% 1000 ML 1,000 ML IV SCH (21:15)
[2022-07-02] MEDS ORDERED: KEFZOL IV ONE (21:16)
[2022-07-02] MEDS ORDERED: KEFZOL 1 GM/50 ML PREMIX** 1 GM/50 ML IVPB IV SCH (22:00)
[2022-07-02] MEDS ORDERED: FLUZONE QUAD 2022-2023 SYRINGE IM ONE (22:31)
[2022-07-02] MEDS: CEFAZOLIN 2 GM-D5W BAG** 2 GM/50 ML ML IV SCH (22:57)
[2022-07-02] MEDS: Hydromorphone 1 mg/ml Injection IV PRN (23:05)
[2022-07-03] MEDS: Hydromorphone 1 mg/ml Injection IV PRN ×4 (03:04→10:44)
[2022-07-03 04:59] LABS: Absolute Neutrophil Ct (ANC) 4.53 x10^3/uL (1.4-6.9); Basophil (Absolute #) 0.02 x10^3/uL (0-0.4); Eosinophil % 1.6 % (0.00-5.0); Eosinophil (Absolute #) 0.11 x10^3/uL (0-0.5); Hematocrit 26.5 % (35-47); Hemoglobin 7.6 g/dL (12.0-16.0); Lymphocyte (Absolute #) 1.31 x10^3/uL (1.0-4.6); Lymphocytes % 18.7 % (24.0-44.0); Mean Cell Volume 90.8 fL (78-100); Mean Corpuscular Hgb Concent. 28.7 g/dL (32-36); Mean Platelet Volume 10.4 fL (7.5-11.0); Monocyte (Absolute #) 1.02 x10^3/uL (0.0-1.3); Monocytes % 14.6 % (0.0-12.0); Neutrophil % 64.5 % (36.0-66.0); Platelet Count 251 x10^3/uL (150-450); Red Blood Count 2.92 x10^6/uL (4.1-5.4); Red Cell Distribution Width 16.7 % (11.5-14.0)
[2022-07-03 05:39] LABS: Slide Review 1 YES
[2022-07-03 05:40] LABS: ALBUMIN 2.9 g/dL (3.5-5.0); ALKALINE PHOSPHATASE 88 U/L (38-126); ANION GAP 9.6 MEQ/L (5-15); BLOOD UREA NITROGEN 14 mg/dL (7-17); CHLORIDE 107 mmol/L (98-107); Carbon Dioxide 23 mmol/L (22-30); Creatinine 1 0.66 mg/dL (0.52-1.04); EST GLOMERULAR FILTRATION RATE > 60.0 ML/MIN; Glucose 102 mg/dL (74-106); Potassium 3.7 mmol/L (3.5-5.1); SGOT/AST 18 U/L (14-36); SGPT/ALT 10 U/L (0-35); SODIUM 136 mmol/L (137-145); Total Protein 7.9 g/dL (6.3-8.2)
[2022-07-03] MEDS: CEFAZOLIN 2 GM-D5W BAG** 2 GM/50 ML ML IV SCH (06:42)
[2022-07-03 07:57] VITALS: BP 106/65; PULSE 73; O2SAT 98
[2022-07-03] MEDS ORDERED: Zofran 4 MG/2 ML VIAL IV PRN (08:16)
--- NOTE | 2022-07-03 08:50 | XRAY ---
Indication: Right abdomen pain and nausea. Multiple contiguous axial images obtained through the abdomen and pelvis without contrast. Comparison: June 26, 2022 Lung bases demonstrates resolving small left lower lobe cavitary lesion with minimal residual. Heart not enlarged with new tiny pericardial effusion/thickening anteriorly. New feeding catheter with the tip in the descending duodenum. Noncontrasted stomach and bowel loops remains nonobstructed. Midabdomen again demonstrates enterocolonic anastomosis with mesenteric induration and percutaneous pigtail catheter grossly unchanged. Once again location of the pigtail is unknown on this noncontrast exam. Tiny left colic fluid has cleared. No free air. Again 12.4 cm splenomegaly, fatty liver, hysterectomy, and cholecystectomy. Remaining liver, pancreas, spleen, adrenal glands, kidneys, ureters, bladder, and aorta remain unremarkable for noncontrast exam. Impression: 1. Resolving left lower lobe cavitary lesion. 2. New feeding catheter with the tip in the distal descending duodenum. 3. Grossly stable mid abdomen postoperative changes with enterocolonic anastomosis, mesenteric induration, and percutaneous pigtail catheter in situ. 4. Again incidental fatty liver and splenomegaly.
[2022-07-03] MEDS ORDERED: FLUZONE QUAD 2022-2023 SYRINGE IM ONE (10:00)
--- NOTE | 2022-07-03 12:46 | PCM.SSS ---
History of Present Illness - Chief Complaint Chief Complaint: abdominal pain for 3 days History of Present Illness: is a 42 year old female.s/p bowel resection for Crohn's Dz on 04/03/22 at [facility] [place] and who was discharged from there on on 06/29/22 presents per her home health nurse due to tachycardia/subjective fever/abdominal pain. Pt has a NG tube/G-tube/Mid-line. She is on IV antibiotics at home for chronic, draining laparotomy incision. She has chronic diarrhea. Pt denies N/V/dysur ia/hematuria/chest pain/cough/coryza. Pt has been unable to take her pain meds. Timing/Duration: today Activities at Onset: rest Quality: aching Abdominal Pain Onset Location: generalized abdomen Pain Radiation: no radiation Severity of Pain-Max: moderate Severity of Pain-Current: moderate Modifying Factors: Improves With: nothing Associated Symptoms: diarrhea, fever/chills, fatigue, loss of appetite, weakness, No back, No chest pain, No diaphoresis, No headache, No heartburn, No nausea, No neck pain, No rash, No shortness of breath, No syncope, No vomiting Previous symptoms: same symptoms as today - Review of Systems Constitutional: No Fever, No Chills Eyes: No Symptoms Ears, Nose, & Throat: No Symptoms Respiratory: No Cough, No Short Of Breath Cardiac: No Chest Pain, No Edema, No Syncope Abdominal/Gastrointestinal: No Abdominal Pain, No Nausea, No Vomiting, No Diarrhea Genitourinary Symptoms: No Dysuria Musculoskeletal: No Back Pain, No Neck Pain Skin: No Rash Neurological: No Dizziness, No Focal Weakness, No Sensory Changes Psychological: No Symptoms Endocrine: No Symptoms Hematologic/Lymphatic: No Symptoms Immunological/Allergic: No Symptoms Medications & Allergies Home Medications: Home Medication List Cyanocobalamin 1000 Mcg/ml [Cyanocobalamin B-12 1000 MCG/ML] 1,000 mcg IJ DIRECTIONS UNKNOWN 05/14/22 [History Confirmed 07/02/22] Ergocalciferol (Vitamin D2) [Vitamin D2] 50,000 unit PO Q7D 05/14/22 [History Co nfirmed 07/02/22] Oxycodone HCl 5 mg PO Q4HPRN PRN 05/14/22 [History Confirmed 07/02/22] Fluconazole 200 mg PO DAILY 06/21/22 [History Confirmed 07/02/22] Minocycline HCl 1 ea DAILY 06/21/22 [History Confirmed 07/02/22] Potassium Chloride 40 meq PO UD 06/21/22 [History Confirmed 07/02/22] Pyridoxine HCl (Vitamin B6) [Vitamin B-6] 220 mg DAILY 06/21/22 [History Confirmed 07/02/22] Vitamin A Palmitate [Vitamin A] 3,000 units DAILY 06/21/22 [History Confirmed 07/02/22] Zinc Gluconate [Zinc] 50 mg PO DAILY 06/21/22 [History Confirmed 07/02/22] Allergies/Adverse Reactions: Allergies Allergy/AdvReac Type Severity Reaction Status Date / Time acetaminophen [From Tylenol] Allergy Severe Swelling Verified 07/02/22 16:06 of Tongue and Lips hydrocodone [From Lortab] Allergy Severe Swelling Verified 07/02/22 16:06 of Tongue and Lips natalizumab [From Tysabri] Allergy Severe Hives Verified 07/02/22 16:06 onion Allergy Severe Swelling Verified 07/02/22 16:06 of Tongue and Lips tomato Allergy Severe Tightness Verified 07/02/22 16:06 of Throat latex Allergy Intermediate Hives Verified 07/02/22 16:06 morphine AdvReac Severe Verified 07/02/22 16:06 - Past Medical History Past Medical History: Yes Neurological History: Migraines, Other ENT History: No Pertinent History Cardiac History: No Pertinent History Respiratory History: No Pertinent History Endocrine Medical History: No Pertinent History Musculoskelatal History: No Pertinent History GI Medical History: Crohns Disease, GERD, Ulcer History: No Pertinent History Pyscho-Social History: Anxiety, Depression Reproductive Disorders: Fibroids, Uterine Cancer Comment: unknown source of acute kidney failure 04/28/2022. Pt has pseudosei zures brought on by high stress levels - Female History Hx Last Menstrual Period: hysterectomy Are you now?: No - Past Surgical History Past Surgical History: Yes Neuro Surgical History: No Pertinent History Cardiac History: No Pertinent History Respiratory Surgery: No Pertinent History GI Surgical History: Cholecystectomy, Other Genitourinary Surgical Hx: No Pertinent History Musculskeletal Surgical Hx: Orthopedic Surgery Female Surgical History: Hysterectomy, Dilation & Curettage, Other Other Surgical History: small intestine resect 4-5 times, pins R foot, multiple port placement - Social History Smoking Status: Former smoker Exposure to second hand smoke: Yes Alcohol: None Drug Use: marijuana - Physical Exam Vital Signs: Vital Signs - 24 hr Temp Pulse Resp BP Pulse Ox 07/03/22 08:00 20 07/03/22 07:57 97.1 F 73 19 106/65 98 07/03/22 04:10 97.8 F 86 16 127/63 100 07/03/22 04:00 16 07/02/22 23:58 18 07/02/22 22:31 98.2 F 107 H 18 127/66 100 07/02/22 21:53 98 07/02/22 21:00 104 H 18 126/76 99 07/02/22 20:00 102 H 125/82 99 07/02/22 19:00 106 H 117/85 100 07/02/22 18:00 117 H 18 146/93 100 07/02/22 17:00 17 120/80 98 07/02/22 16:11 99.0 F 135 H 18 145/91 98 General Appearance: no apparent distress, alert Neurologic Exam: alert, oriented x 3, cooperative, normal mood/affect, nml cerebellar function, nml station & gait, sensation nml, No motor deficits Eye Exam: PERRL/EOMI, eyes nml inspection Ears, Nose, Throat Exam: normal ENT inspection, TMs normal, pharynx normal, moist mucous membranes Neck Exam: normal inspection, non-tender, supple, full range of motion Respiratory Exam: normal breath sounds, lungs clear, No respiratory distress Cardiovascular Exam: regular rate/rhythm, normal heart sounds, normal peripheral pulses Gastrointestinal/Abdomen Exam: soft, normal bowel sounds, No tenderness, No mass Back Exam: normal inspection, normal range of motion, No CVA tenderness, No vertebral tenderness Extremity Exam: normal inspection, normal range of motion, pelvis stable Skin Exam: normal color, warm, dry, No rash Lymphatic Exam: No adenopathy Results - Labs Lab/Micro Results: Lab Results-Last 24 Hours 07/02/22 07/02/22 07/02/22 Range/Units 16:30 16:30 16:40 WBC 9.6 (4.0-10.5) x10^3/uL RBC 3.36 L (4.1-5.4) x10^6/uL Hgb 9.0 L (12.0-16.0) g/dL Hct 29.7 L (35-47) % MCV 88.4 (78-100) fL MCH 26.8 (26-32) pg MCHC 30.3 L (32-36) g/dL RDW 16.9 H (11.5-14.0) % Plt Count 324 (150-450) x10^3/uL MPV 10.6 (7.5-11.0) fL Gran % 76.4 H (36.0-66.0) % Immature Gran % (Auto) 0.4 (0.00-0.4) % Nucleat RBC Rel Count 0.0 (0.00-0.1) % Eos # (Auto) 0.03 (0-0.5) x10^3/uL Immature Gran # (Auto) 0.04 H (0.00-0.03) x10^3u/L Absolute Lymphs (auto) 1.05 (1.0-4.6) x10^3/uL Absolute Monos (auto) 1.13 (0.0-1.3) x10^3/uL Absolute Nucleated RBC 0.00 (0.00-0.01) x10^3u/L Lymphocytes % 10.9 L (24.0-44.0) % Monocytes % 11.8 (0.0-12.0) % Eosinophils % 0.3 (0.00-5.0) % Basophils % 0.2 (0.0-0.4) % Absolute Granulocytes 7.34 H (1.4-6.9) x10^3/uL Basophils # 0.02 (0-0.4) x10^3/uL Sodium 137 (137-145) mmol/L Potassium 3.8 (3.5-5.1) mmol/L Chloride 106 (98-107) mmol/L Carbon Dioxide 23 (22-30) mmol/L Anion Gap 12.6 (5-15) MEQ/L BUN 16 (7-17) mg/dL Creatinine 0.84 (0.52-1.04) mg/dL Estimated GFR > 60.0 ML/MIN Glucose 104 (74-106) mg/dL Lactic Acid (0.4-2.0) Calcium 8.4 (8.4-10.2) mg/dL Total Bilirubin 0.40 (0.2-1.3) mg/dL AST 23 (14-36) U/L ALT 12 (0-35) U/L Alkaline Phosphatase 114 (38-126) U/L Serum Total Protein 9.3 H (6.3-8.2) g/dL Albumin 3.6 (3.5-5.0) g/dL Prealbumin (17.6-36.0) mg/dL Amylase 287 H (30-110) U/L Lipase 1538 H (23-300) U/L Urinalys Dipstick Clnc Urine Color (YELLOW) Urine Appearance (CLEAR) Urine pH (5-6) Ur Specific [place] (1.005-1.025) POC Urine Protein Conf (Negative) Urine Ketones (NEGATIVE) Urine Nitrite (NEGATIVE) Urine Bilirubin (NEGATIVE) Urine Urobilinogen (0-1) mg/dL Urine Leukocytes (NEGATIVE) Urine WBC (Auto) (0-5) /HPF Urine RBC (Auto) (0-2) /HPF Urine Bacteria (Auto) (NEGATIVE) /HPF Urine RBC (0-5) Alonso/ul Granular Casts (Auto) (NEGATIVE) /LPF Urine Mucus (Auto) (NEGATIVE) /HPF Ur Culture Indicated? Urine Glucose (NEGATIVE) mg/dL Influenza Type A Ag NEGATIVE (NEGATIVE) Influenza Type B Ag NEGATIVE (NEGATIVE) RSV (PCR) NEGATIVE (Negative) SARS-CoV-2 (PCR) NEGATIVE (NEGATIVE) Slides for Path Review 07/02/22 07/02/22 07/03/22 Range/Units 16:44 16:49 04:30 WBC 7.0 (4.0-10.5) x10^3/uL RBC 2.92 L (4.1-5.4) x10^6/uL Hgb 7.6 L (12.0-16.0) g/dL Hct 26.5 L (35-47) % MCV 90.8 (78-100) fL MCH 26.0 (26-32) pg MCHC 28.7 L (32-36) g/dL RDW 16.7 H (11.5-14.0) % Plt Count 251 (150-450) x10^3/uL MPV 10.4 (7.5-11.0) fL Gran % 64.5 (36.0-66.0) % Immature Gran % (Auto) 0.3 (0.00-0.4) % Nucleat RBC Rel Count 0.0 (0.00-0.1) % Eos # (Auto) 0.11 (0-0.5) x10^3/uL Immature Gran # (Auto) 0.02 (0.00-0.03) x10^3u/L Absolute Lymphs (auto) 1.31 (1.0-4.6) x10^3/uL Absolute Monos (auto) 1.02 (0.0-1.3) x10^3/uL Absolute Nucleated RBC 0.00 (0.00-0.01) x10^3u/L Lymphocytes % 18.7 L (24.0-44.0) % Monocytes % 14.6 H (0.0-12.0) % Eosinophils % 1.6 (0.00-5.0) % Basophils % 0.3 (0.0-0.4) % Absolute Granulocytes 4.53 (1.4-6.9) x10^3/uL Basophils # 0.02 (0-0.4) x10^3/uL Sodium (137-145) mmol/L Potassium (3.5-5.1) mmol/L Chloride (98-107) mmol/L Carbon Dioxide (22-30) mmol/L Anion Gap (5-15) MEQ/L BUN (7-17) mg/dL Creatinine (0.52-1.04) mg/dL Estimated GFR ML/MIN Glucose (74-106) mg/dL Lactic Acid 1.5 (0.4-2.0) Calcium (8.4-10.2) mg/dL Total Bilirubin (0.2-1.3) mg/dL AST (14-36) U/L ALT (0-35) U/L Alkaline Phosphatase (38-126) U/L Serum Total Protein (6.3-8.2) g/dL Albumin (3.5-5.0) g/dL Prealbumin (17.6-36.0) mg/dL Amylase (30-110) U/L Lipase (23-300) U/L Urinalys Dipstick Clnc MAIN LAB Urine Color YELLOW (YELLOW) Urine Appearance SLIGHTLY CLOUDY (CLEAR) Urine pH 5.5 (5-6) Ur Specific [place] >=1.030 (1.005-1.025) POC Urine Protein Conf 100 (Negative) Urine Ketones TRACE (NEGATIVE) Urine Nitrite NEGATIVE (NEGATIVE) Urine Bilirubin NEGATIVE (NEGATIVE) Urine Urobilinogen 0.2 (0-1) mg/dL Urine Leukocytes NEGATIVE (NEGATIVE) Urine WBC (Auto) 6-10 (0-5) /HPF Urine RBC (Auto) 6-10 (0-2) /HPF Urine Bacteria (Auto) FEW (NEGATIVE) /HPF Urine RBC TRACE-INTACT (0-5) Alonso/ul Granular Casts (Auto) 2-5 (NEGATIVE) /LPF Urine Mucus (Auto) SLIGHT (NEGATIVE) /HPF Ur Culture Indicated? YES Urine Glucose NEGATIVE (NEGATIVE) mg/dL Influenza Type A Ag (NEGATIVE) Influenza Type B Ag (NEGATIVE) RSV (PCR) (Negative) SARS-CoV-2 (PCR) (NEGATIVE) Slides for Path Review YES 07/03/22 07/03/22 Range/Units 04:30 04:30 WBC (4.0-10.5) x10^3/uL RBC (4.1-5.4) x10^6/uL Hgb (12.0-16.0) g/dL Hct (35-47) % MCV (78-100) fL MCH (26-32) pg MCHC (32-36) g/dL RDW (11.5-14.0) % Plt Count (150-450) x10^3/uL MPV (7.5-11.0) fL Gran % (36.0-66.0) % Immature Gran % (Auto) (0.00-0.4) % Nucleat RBC Rel Count (0.00-0.1) % Eos # (Auto) (0-0.5) x10^3/uL Immature Gran # (Auto) (0.00-0.03) x10^3u/L Absolute Lymphs (auto) (1.0-4.6) x10^3/uL Absolute Monos (auto) (0.0-1.3) x10^3/uL Absolute Nucleated RBC (0.00-0.01) x10^3u/L Lymphocytes % (24.0-44.0) % Monocytes % (0.0-12.0) % Eosinophils % (0.00-5.0) % Basophils % (0.0-0.4) % Absolute Granulocytes (1.4-6.9) x10^3/uL Basophils # (0-0.4) x10^3/uL Sodium 136 L (137-145) mmol/L Potassium 3.7 (3.5-5.1) mmol/L Chloride 107 (98-107) mmol/L Carbon Dioxide 23 (22-30) mmol/L Anion Gap 9.6 (5-15) MEQ/L BUN 14 (7-17) mg/dL Creatinine 0.66 (0.52-1.04) mg/dL Estimated GFR > 60.0 ML/MIN Glucose 102 (74-106) mg/dL Lactic Acid (0.4-2.0) Calcium 8.0 L (8.4-10.2) mg/dL Total Bilirubin 0.40 (0.2-1.3) mg/dL AST 18 (14-36) U/L ALT 10 (0-35) U/L Alkaline Phosphatase 88 (38-126) U/L Serum Total Protein 7.9 (6.3-8.2) g/dL Albumin 2.9 L (3.5-5.0) g/dL Prealbumin 18.87 (17.6-36.0) mg/dL Amylase (30-110) U/L Lipase (23-300) U/L Urinalys Dipstick Clnc Urine Color (YELLOW) Urine Appearance (CLEAR) Urine pH (5-6) Ur Specific [place] (1.005-1.025) POC Urine Protein Conf (Negative) Urine Ketones (NEGATIVE) Urine Nitrite (NEGATIVE) Urine Bilirubin (NEGATIVE) Urine Urobilinogen (0-1) mg/dL Urine Leukocytes (NEGATIVE) Urine WBC (Auto) (0-5) /HPF Urine RBC (Auto) (0-2) /HPF Urine Bacteria (Auto) (NEGATIVE) /HPF Urine RBC (0-5) Alonso/ul Granular Casts (Auto) (NEGATIVE) /LPF Urine Mucus (Auto) (NEGATIVE) /HPF Ur Culture Indicated? Urine Glucose (NEGATIVE) mg/dL Influenza Type A Ag (NEGATIVE) Influenza Type B Ag (NEGATIVE) RSV (PCR) (Negative) SARS-CoV-2 (PCR) (NEGATIVE) Slides for Path Review Microbiology 07/02/22 16:44 Urine Culture - Preliminary Clean Catch Midstream NO GROWTH TO DATE - Radiology Impressions Radiology Exams & Impressions: Radiology Procedures Category Date Time Status ABDOMEN AND PELVIS W/0 CONTRAS [CT] Stat Exams 07/02/22 16:40 Completed Assessment/Plan (1) Crohn's disease (regional enteritis) Status: Acute Qualifiers: Gastrointestinal tract location: small and large intestine Digestive disease complication type: with intestinal obstruction Qualified Code(s): K50.812 - Crohn's disease of both small and large intestine with intestinal obstruction Assessment & Plan: Chief Complaint Diagnosis pancreatitis/uti Allergies Allergy/AdvReac Type Severity Reaction Status Date / Time acetaminophen [From Tylenol] Allergy Severe Swelling Verified 07/02/22 16:06 of Tongue and Lips hydrocodone [From Lortab] Allergy Severe Swelling Verified 07/02/22 16:06 of Tongue and Lips natalizumab [From Tysabri] Allergy Severe Hives Verified 07/02/22 16:06 onion Allergy Severe Swelling Verified 07/02/22 16:06 of Tongue and Lips tomato Allergy Severe Tightness Verified 07/02/22 16:06 of Throat latex Allergy Intermediate Hives Verified 07/02/22 16:06 morphine AdvReac Severe Verified 07/02/22 16:06 Vital Signs (Last 24 hours) Temp Pulse Resp BP Pulse Ox 07/03/22 08:00 20 07/03/22 07:57 97.1 F 73 19 106/65 98 07/03/22 04:10 97.8 F 86 16 127/63 100 07/03/22 04:00 16 07/02/22 23:58 18 07/02/22 22:31 98.2 F 107 H 18 127/66 100 07/02/22 21:53 98 07/02/22 21:00 104 H 18 126/76 99 07/02/22 20:00 102 H 125/82 99 07/02/22 19:00 106 H 117/85 100 07/02/22 18:00 117 H 18 146/93 100 07/02/22 17:00 17 120/80 98 07/02/22 16:11 99.0 F 135 H 18 145/91 98 Current Medications Discontinued Medications Generic Name Dose Route Start Last Admin Trade Name Freq PRN Reason Stop Dose Admin Fentanyl Citrate 50 mcg 07/02/22 19:24 07/02/22 19:33 Fentanyl Citrate 100 Mcg/2 Ml* Vial IV 07/02/22 19:25 50 mcg STAT ONE Administration Fentanyl Citrate Confirm 07/02/22 19:30 Fentanyl Citrate 100 Mcg/2 Ml* Vial Administered 07/02/22 19:31 Dose 100 mcg .ROUTE .STK-MED ONE Hydromorphone HCl 1 mg 07/02/22 21:03 07/03/22 06:41 Hydromorphone 1 Mg/1ml Inj 1 Mg/Ml Syringe IV 07/07/22 21:02 1 mg Q4H PRN PRN Administration PAIN Hydromorphone HCl 1 mg 07/02/22 21:08 07/02/22 21:10 Hydromorphone 1 Mg/1ml Inj 1 Mg/Ml Syringe IV 07/02/22 21:09 1 mg STAT ONE Administration Hydromorphone HCl 1 mg 07/03/22 08:16 07/03/22 10:44 Hydromorphone 1 Mg/1ml Inj 1 Mg/Ml Syringe IV 07/08/22 08:13 1 mg Q2H PRN PRN Administration PAIN Sodium Chloride 1,000 mls @ 999 mls/hr 07/02/22 19:24 07/02/22 20:34 Sodium Chloride 0.9% 1000 Ml IV 07/02/22 20:24 Infused .Q1H1M STA Infusion Sodium Chloride Confirm 07/02/22 19:30 Sodium Chloride 0.9% 1000 Ml Administered 07/02/22 19:31 Dose 1,000 mls @ ud .ROUTE .STK-MED ONE Sodium Chloride 1,000 mls @ 100 mls/hr 07/02/22 21:15 07/02/22 21:10 Sodium Chloride 0.9% 1000 Ml IV 08/01/22 21:14 100 mls/hr .Q10H ROMULO Administration Cefazolin Sodium/Dextrose 1 gm in 50 mls @ 100 mls/hr 07/02/22 22:00 Kefzol 1 Gm/50 Ml Premix IV 07/05/22 21:59 Q8HT ROMULO Cefazolin Sodium/Dextrose 2 gm in 50 mls @ 100 mls/hr 07/02/22 21:08 07/02/22 21:14 Cefazolin 2 Gm-D5w Bag IV 07/02/22 21:37 Not Given STAT STA Cefazolin Sodium/Dextrose 2 gm in 50 mls @ 100 mls/hr 07/02/22 22:00 07/03/22 06:42 Cefazolin 2 Gm-D5w Bag IV 07/05/22 21:59 100 mls/hr Q8HT ROMULO Administration Cefazolin Sodium/Dextrose 1 gm in 50 mls @ 100 mls/hr 07/02/22 21:14 07/02/22 21:49 Kefzol 1 Gm/50 Ml Premix IV 07/02/22 21:43 Infused STAT STA Infusion Cefazolin Sodium/Dextrose 1 gm in 50 mls @ 100 mls/hr 07/02/22 21:15 07/02/22 21:49 Kefzol 1 Gm/50 Ml Premix IV 07/02/22 21:44 Infused STAT STA Infusion Cefazolin Sodium/Dextrose Confirm 07/02/22 21:16 Kefzol 1 Gm/50 Ml Premix Administered 07/02/22 21:17 Dose 2 gm in 100 mls @ ud IV .STK-MED ONE Ondansetron HCl 4 mg 07/02/22 19:28 07/02/22 19:33 Ondansetron Hcl 4 Mg/2 Ml Vial IV 07/02/22 19:29 4 mg STAT ONE Administration Ondansetron HCl Confirm 07/02/22 19:29 Ondansetron Hcl 4 Mg/2 Ml Vial Administered 07/02/22 19:30 Dose 4 mg .ROUTE .STK-MED ONE Ondansetron HCl 4 mg 07/02/22 21:03 07/03/22 03:04 Ondansetron Hcl 4 Mg/2 Ml Vial IV 08/01/22 21:02 4 mg Q6H PRN PRN Administration NAUSEA/VOMITING Ondansetron HCl 4 mg 07/02/22 21:52 07/02/22 21:53 Ondansetron Hcl 4 Mg/2 Ml Vial IV 07/02/22 21:53 4 mg STAT ONE Administration Ondansetron HCl 4 mg 07/03/22 08:16 07/03/22 08:19 Ondansetron Hcl 4 Mg/2 Ml Vial IV 08/02/22 08:14 4 mg Q4H PRN PRN Administration NAUSEA/VOMITING Intake & Output (Last 24 hours) 07/01/22 07/02/22 07/03/22 07/04/22 11:59 11:59 11:59 11:59 Intake Total 474 Output Total 500 Balance -26 Weight 68.9 kg Microbiology Results (Last 24 hours) 07/02/22 16:44 Clean Catch Midstream Urine Culture - Preliminary NO GROWTH TO DATE Laboratory Results (Last 24 hours) 07/03/22 07/03/22 07/03/22 04:30 04:30 04:30 WBC 7.0 RBC 2.92 L Hgb 7.6 L Hct 26.5 L MCV 90.8 MCH 26.0 MCHC 28.7 L RDW 16.7 H Plt Count 251 MPV 10.4 Gran % 64.5 Immature Gran % (Auto) 0.3 Nucleat RBC Rel Count 0.0 Eos # (Auto) 0.11 Immature Gran # (Auto) 0.02 Absolute Lymphs (auto) 1.31 Absolute Monos (auto) 1.02 Absolute Nucleated RBC 0.00 Lymphocytes % 18.7 L Monocytes % 14.6 H Eosinophils % 1.6 Basophils % 0.3 Absolute Granulocytes 4.53 Basophils # 0.02 Sodium 136 L Potassium 3.7 Chloride 107 Carbon Dioxide 23 Anion Gap 9.6 BUN 14 Creatinine 0.66 Estimated GFR > 60.0 Glucose 102 Lactic Acid Calcium 8.0 L Total Bilirubin 0.40 AST 18 ALT 10 Alkaline Phosphatase 88 Serum Total Protein 7.9 Albumin 2.9 L Prealbumin 18.87 Amylase Lipase Urinalys Dipstick Clnc Urine Color Urine Appearance Urine pH Ur Specific [place] POC Urine Protein Conf Urine Ketones Urine Nitrite Urine Bilirubin Urine Urobilinogen Urine Leukocytes Urine WBC (Auto) Urine RBC (Auto) Urine Bacteria (Auto) Urine RBC Granular Casts (Auto) Urine Mucus (Auto) Ur Culture Indicated? Urine Glucose Influenza Type A Ag Influenza Type B Ag RSV (PCR) SARS-CoV-2 (PCR) Slides for Path Review YES 07/02/22 07/02/22 07/02/22 16:49 16:44 16:40 WBC RBC Hgb Hct MCV MCH MCHC RDW Plt Count MPV Gran % Immature Gran % (Auto) Nucleat RBC Rel Count Eos # (Auto) Immature Gran # (Auto) Absolute Lymphs (auto) Absolute Monos (auto) Absolute Nucleated RBC Lymphocytes % Monocytes % Eosinophils % Basophils % Absolute Granulocytes Basophils # Sodium Potassium Chloride Carbon Dioxide Anion Gap BUN Creatinine Estimated GFR Glucose Lactic Acid 1.5 Calcium Total Bilirubin AST ALT Alkaline Phosphatase Serum Total Protein Albumin Prealbumin Amylase Lipase Urinalys Dipstick Clnc MAIN LAB Urine Color YELLOW Urine Appearance SLIGHTLY CLOUDY Urine pH 5.5 Ur Specific [place] >=1.030 POC Urine Protein Conf 100 Urine Ketones TRACE Urine Nitrite NEGATIVE Urine Bilirubin NEGATIVE Urine Urobilinogen 0.2 Urine Leukocytes NEGATIVE Urine WBC (Auto) 6-10 Urine RBC (Auto) 6-10 Urine Bacteria (Auto) FEW Urine RBC TRACE-INTACT Granular Casts (Auto) 2-5 Urine Mucus (Auto) SLIGHT Ur Culture Indicated? YES Urine Glucose NEGATIVE Influenza Type A Ag NEGATIVE Influenza Type B Ag NEGATIVE RSV (PCR) NEGATIVE SARS-CoV-2 (PCR) NEGATIVE Slides for Path Review 07/02/22 07/02/22 16:30 16:30 WBC 9.6 RBC 3.36 L Hgb 9.0 L Hct 29.7 L MCV 88.4 MCH 26.8 MCHC 30.3 L RDW 16.9 H Plt Count 324 MPV 10.6 Gran % 76.4 H Immature Gran % (Auto) 0.4 Nucleat RBC Rel Count 0.0 Eos # (Auto) 0.03 Immature Gran # (Auto) 0.04 H Absolute Lymphs (auto) 1.05 Absolute Monos (auto) 1.13 Absolute Nucleated RBC 0.00 Lymphocytes % 10.9 L Monocytes % 11.8 Eosinophils % 0.3 Basophils % 0.2 Absolute Granulocytes 7.34 H Basophils # 0.02 Sodium 137 Potassium 3.8 Chloride 106 Carbon Dioxide 23 Anion Gap 12.6 BUN 16 Creatinine 0.84 Estimated GFR > 60.0 Glucose 104 Lactic Acid Calcium 8.4 Total Bilirubin 0.40 AST 23 ALT 12 Alkaline Phosphatase 114 Serum Total Protein 9.3 H Albumin 3.6 Prealbumin Amylase 287 H Lipase 1538 H Urinalys Dipstick Clnc Urine Color Urine Appearance Urine pH Ur Specific [place] POC Urine Protein Conf Urine Ketones Urine Nitrite Urine Bilirubin Urine Urobilinogen Urine Leukocytes Urine WBC (Auto) Urine RBC (Auto) Urine Bacteria (Auto) Urine RBC Granular Casts (Auto) Urine Mucus (Auto) Ur Culture Indicated? Urine Glucose Influenza Type A Ag Influenza Type B Ag RSV (PCR) SARS-CoV-2 (PCR) Slides for Path Review Orders (Last 24 hours) Category Date Time Status Bedrest with BRP/BSC ROUTINE Activity 07/02/22 21:05 Completed Code Status Order ROUTINE Care 07/02/22 21:[address] in Observation ROUTINE Care 07/02/22 21:03 Completed Vital Signs Q4H Care 07/02/22 21:03 Completed Maintenance Job Titles/Discharge Plan ROUTINE Cons 07/03/22 09:00 Completed NPO Diet 07/02/22 21:05 Completed Discharge Routine Discharge 07/03/22 11:00 Ordered ABDOMEN AND PELVIS W/0 CONTRAS [CT] Stat Exams 07/02/22 16:40 Completed AMYLASE Stat Lab 07/02/22 16:30 Completed CBC W DIFF AM.LAB Lab 07/03/22 04:30 Completed CBC W DIFF Stat Lab 07/02/22 16:30 Completed CMP AM.LAB Lab 07/03/22 04:30 Completed CMP Stat Lab 07/02/22 16:30 Completed COVID/FLU/RSV Panel Stat Lab 07/02/22 16:40 Completed CULTURE,URINE Stat Lab 07/02/22 16:44 Results LIPASE Stat Lab 07/02/22 16:30 Completed Lactic Acid Stat Lab 07/02/22 16:49 Completed PREALBUMIN Routine Lab 07/03/22 04:30 Completed UA W/RFX CULTURE Stat Lab 07/02/22 16:44 Completed Cefazolin 1 gm/50 ml Premix [Kefzol 1 gm/50 ml Premix Med 07/02/22 22:00 Discontinued ] 1 gm in 50 ml IV Q8HT Cefazolin 1 gm/50 ml Premix [Kefzol 1 gm/50 ml Premix Med 07/02/22 21:14 Discontinued ] 1 gm in 50 ml IV STAT Cefazolin 1 gm/50 ml Premix [Kefzol 1 gm/50 ml Premix Med 07/02/22 21:15 Discontinued ] 1 gm in 50 ml IV STAT Cefazolin 1 gm/50 ml Premix [Kefzol 1 gm/50 ml Premix Med 07/02/22 21:16 Discontinued ] 2 gm in 100 ml IV UD Cefazolin 2 gm /Dextrose [Cefazolin 2 gm-D5w Bag] Med 07/02/22 22:00 Discontinued 2 gm in 50 ml IV Q8HT Cefazolin 2 gm /Dextrose [Cefazolin 2 gm-D5w Bag] Med 07/02/22 21:08 Discontinued 2 gm in 50 ml IV STAT Fentanyl Citrate 100 Mcg/2 ml* [Sublimaze 100 Mcg/2 ml* Med 07/02/22 19:30 Discontinued ] 100 mcg .ROUTE .STK-MED ONE Fentanyl Citrate 100 Mcg/2 ml* [Sublimaze 100 Mcg/2 ml* [facility] 07/02/22 19:24 Discontinued ] 50 mcg IV STAT ONE Flu Vacc [id number](6Mos Up)/Pf [Fluzone Quad [facility] 07/02/22 22:31 Discontinued Syringe] 60 mcg IM .ONCE ONE Flu Vacc [id number](6Mos Up)/Pf [Fluzone Quad [facility] 07/03/22 10:00 Discontinued Syringe] 60 mcg IM .ONCE ONE Hydromorphone 1 mg/1Ml Inj [Hydromorphone 1 mg/ml [facility] 07/03/22 08:16 Dis continued Injection] 1 mg IV Q2H PRN PRN Hydromorphone 1 mg/1Ml Inj [Hydromorphone 1 mg/ml [facility] 07/02/22 21:03 Discontinued Injection] 1 mg IV Q4H PRN PRN Hydromorphone 1 mg/1Ml Inj [Hydromorphone 1 mg/ml [facility] 07/02/22 21:08 Discontinued Injection] 1 mg IV STAT ONE NaCl 0.9% 1000 ml [Sodium Chloride 0.9% 1000 ML] 1,000 Med 07/02/22 19:30 Discontinued ml .ROUTE UD NaCl 0.9% 1000 ml [Sodium Chloride 0.9% 1000 ML] 1,000 Med 07/02/22 21:15 Discontinued ml IV 100 mls/hr NaCl 0.9% 1000 ml [Sodium Chloride 0.9% 1000 ML] 1,000 Med 07/02/22 19:24 Discontinued ml IV 999 mls/hr Ondansetron HCl 4 mg/2 ml [Zofran 4 MG/2 ML VIAL] Med 07/02/22 19:29 Discontinued 4 mg .ROUTE .STK-MED ONE Ondansetron HCl 4 mg/2 ml [Zofran 4 MG/2 ML VIAL] Med 07/03/22 08:16 Discontinued 4 mg IV Q4H PRN PRN Ondansetron HCl 4 mg/2 ml [Zofran 4 MG/2 ML VIAL] Med 07/02/22 21:03 Discontinued 4 mg IV Q6H PRN PRN Ondansetron HCl 4 mg/2 ml [Zofran 4 MG/2 ML VIAL] Med 07/02/22 19:28 Discontinued 4 mg IV STAT ONE Ondansetron HCl 4 mg/2 ml [Zofran 4 MG/2 ML VIAL] Med 07/02/22 21:52 Discontinued 4 mg IV STAT ONE PT Screen per Nursing Assess ONCE PT 07/03/22 09:00 Completed Patient Care Notes (Last 24 hours) 07/03/22 11:38 Nursing Note by Rocio Irwin FROM [facility] CALLED AND REPORT WAS GIVEN AT THIS TIME . Initialized on 07/03/22 11:38 - END OF NOTE 07/03/22 11:17 Nursing Note by Rocio Irwin PT LEFT FACILITY WITH [facility] AT 1109. ATTEMPTED TO CALL REPORT TO [facility] AT THIS TIME. THEY TOOK MY NAME AND NUMBER AND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
== END 2022-07-03 11:09 ==
LOC: ED 15:54 → MED SURG 22:14
PROVIDERS: ADMIT General Practice; ATTEND General Practice
DX: K50.812 Crohn's disease of both small and large intestine with intestinal obstruction (principal); K85.90 Acute pancreatitis without necrosis or infection, unspecified; N39.0 Urinary tract infection, site not specified; R00.0 Tachycardia, unspecified; R50.9 Fever, unspecified; Z79.899 Other long term (current) drug therapy; Z20.828 Contact with and (suspected) exposure to other viral communicable diseases; Z85.42 Personal history of malignant neoplasm of other parts of uterus
CPT/HCPCS: 0241U; 36415; 74176; 80053; 81015; 82150; 83605; 83690; 84134; 85025; 87086; 96360; 96374; 96375; 99285; G0378; J0690; J1170; J2405; J3010

== ENCOUNTER 2022-08-03 22:55 | Inpatient (IN) | payer MEDICARE ==
[2022-08-03] MEDS ORDERED: Zofran 4 MG/2 ML VIAL IV ONE (23:44)
[2022-08-03] MEDS ORDERED: Sodium Chloride 0.9% 1000 ML 1,000 ML IV STA (23:44)
[2022-08-03] MEDS ORDERED: Hydromorphone 1 mg/ml Injection IV ONE (23:44)
[2022-08-03] MEDS ORDERED: BENADRYL 50 MG/ML IV ONE (23:44)
[2022-08-03] MEDS ORDERED: PIPERACILLIN/TAZOBACTAM 4.5 GM in Sodium Chloride 100ML MINI-BAG PLUS 100 ML IV ONE (23:46)
[2022-08-03] MEDS ORDERED: Zofran 4 MG/2 ML VIAL ONE (23:56)
[2022-08-03] MEDS ORDERED: BENADRYL 50 MG/ML ONE (23:57)
[2022-08-03] MEDS ORDERED: PIPERACILLIN/TAZOBACTAM IV ONE (23:57)
[2022-08-03] MEDS ORDERED: Hydromorphone 1 mg/ml Injection ONE (23:57)
--- NOTE | 2022-08-03 23:57 | ERPHSYRPT ---
- History of Present Illness Time Seen by Provider: 08/03/22 23:35 Historian: patient Exam Limitations: no limitations Patient Subjective Stated Complaint: pt states she has been vomiting and having abd pain today. states she has not been having regular bowel movements. pt having thick brown liquid drainage from incision. states has been draining for "a long time" but has gotten worse today. pt also c/o lt knee pain from fall today Triage Nursing Assessment: pt alert and oriented, answers questions approp. pt back per wheelchair and transfers to stretcher with assist of 2. skin warm and dry. respirations nonlabored. incision to abd red with thick brown drainage noted. drain to lt lower quad with light brown drainage in bag. single lumen p icc to lt upper arm, locked off. pt vomiting brown liquid with foul smell. Physician History: Patient has a dehisced central abdominal wound with brown leakage. This is ac ramona on chronic. Patient has a history of bowel resections with Crohn's. Patient still has draining from a tube. She does not have an ostomy. Her abdomen demonstrates a midline central incision that has dehisced with tenderness and draining dark, potential stool in appearance fluid. She has surr ounding tenderness and erythema. She complains of nausea. Incidentally she also complains of left knee pain from a fall earlier today. Patient was operated on by Dr. David in [place]. She states that she was discharged 3 weeks ago from there. Timing/Duration: other (acute on chronic ) Activities at Onset: other (worse with eating ) Quality: cramping, dullness, fullness Abdominal Pain Onset Location: periumbilical Pain Radiation: no radiation Severity of Pain-Max: mild Severity of Pain-Current: mild Modifying Factors: Improves With: eating, vomiting Associated Symptoms: other Previous symptoms: recent hospitalization Allergies/Adverse Reactions: acetaminophen [From Tylenol] Allergy (Severe, Verified 08/03/22 23:29) Swelling of Tongue and Lips hydrocodone [From Lortab] Allergy (Severe, Verified 08/03/22 23:29) Swelling of Tongue and Lips natalizumab [From Tysabri] Allergy (Severe, Verified 08/03/22 23:29) Hives onion Allergy (Severe, Verified 08/03/22 23:29) Swelling of Tongue and Lips tomato Allergy (Severe, Verified 10/16/22 23:29) Tightness of Throat latex Allergy (Intermediate, Verified 08/03/22 23:29) Hives morphine Adverse Reaction (Severe, Verified 08/03/22 23:29) makes pt mad/angry/volitle Home Medications: Cyanocobalamin 1000 Mcg/ml [Cyanocobalamin B-12 1000 MCG/ML] 1,000 mcg IJ DIRECTIONS UNKNOWN 05/14/22 [History] Ergocalciferol (Vitamin D2) [Vitamin D2] 50,000 unit PO Q7D 05/14/22 [History] Oxycodone HCl 5 mg PO Q4HPRN PRN 05/14/22 [History] Fluconazole 200 mg PO DAILY 06/21/22 [History] Minocycline HCl 1 ea DAILY 06/21/22 [History] Potassium Chloride 40 meq PO UD 06/21/22 [History] Pyridoxine HCl (Vitamin B6) [Vitamin B-6] 220 mg DAILY 06/21/22 [History] Vitamin A Palmitate [Vitamin A] 3,000 units DAILY 06/21/22 [History] Zinc Gluconate [Zinc] 50 mg PO DAILY 06/21/22 [History] Hx Tetanus, Diphtheria Vaccination/Date Given: Yes Hx Influenza Vaccination/Date Given: No Hx Pneumococcal Vaccination/Date Given: No Immunizations Up to Date: Yes Travel Risk - International Travel Have you traveled outside of the country in past 3 weeks: No - Coronavirus Screening Are you exhibiting any of the following symptoms?: No Close contact with a COVID-19 positive Pt in past 14-21 Days: No - Vaccine Status Have you recieved a Covid-19 vaccination: Yes Patient Case Coordinator: Unknown - Vaccination Dates Dates if Unknown: 2021 - Review of Systems Constitutional: No Fever, No Chills Eyes: No Symptoms Ears, Nose, & Throat: No Symptoms Respiratory: No Cough, No Dyspnea Cardiac: No Chest Pain, No Edema, No Syncope Abdominal/Gastrointestinal: Abdominal Pain, Nausea, Other (drainage, and pain), No Vomiting, No Diarrhea Genitourinary Symptoms: No Dysuria Musculoskeletal: Other (left knee pain), No Back Pain, No Neck Pain Skin: No Rash Neurological: No Dizziness, No Focal Weakness, No Sensory Changes Psychological: No Symptoms Endocrine: No Symptoms All Other Systems: Reviewed and Negative - Past Medical History Pertinent Past Medical History: Yes Neurological History: Migraines, Other ENT History: No Pertinent History Cardiac History: No Pertinent History Respiratory History: No Pertinent History Endocrine Medical History: No Pertinent History Musculoskeletal History: No Pertinent History GI Medical History: Crohns Disease, GERD, Ulcer History: No Pertinent History Psycho-Social History: Anxiety, Depression Female Reproductive Disorders: Fibroids, Uterine Cancer Other Medical History: unknown source of acute kidney failure 04/28/2022. 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 - Past Surgical History Past Surgical History: Yes Neuro Surgical History: No Pertinent History Cardiac: No Pertinent History Respiratory: No Pertinent History Gastrointestinal: Cholecystectomy, Other Genitourinary: No Pertinent History Musculoskeletal: Orthopedic Surgery Female Surgical History: Hysterectomy, Dilation & Curettage, Other Other Surgical History: intestine resect 4-5 times, pins R foot, multiple port placement - Social History Smoking Status: Former smoker Exposure to second hand smoke: Yes Drug Use: marijuana Patient Lives Alone: No - Female History Hx Last Menstrual Period: hyster Hx Now: No - Nursing Vital Signs Nursing Vital Signs: Initial Vital Signs Temperature 98.1 F 08/03/22 23:07 Pulse Rate 112 H 08/03/22 23:07 Respiratory Rate 18 08/03/22 23:07 Blood Pressure 109/87 08/03/22 23:07 O2 Sat by Pulse Oximetry 96 08/03/22 23:07 Pain Scale Pain Intensity 5 - Physical Exam General Appearance: no apparent distress, alert Eye Exam: PERRL/EOMI, eyes nml inspection Ears, Nose, Throat Exam: normal ENT inspection, pharynx normal, moist mucous membranes Neck Exam: normal inspection, non-tender, supple, full range of motion Respiratory Exam: normal breath sounds, lungs clear, No respiratory distress Cardiovascular Exam: regular rate/rhythm, normal heart sounds Gastrointestinal/Abdomen Exam: soft, tenderness, other (Midline incision that is dehisced with draining brown potential stool. Surrounding tenderness and erythema. She has a tube in place to the left of the wound in the left lower quadrant. Abdomen is soft but diffusely tender. Not rigid no guarding.), No mass Back Exam: normal inspection, normal range of motion, No CVA tenderness, No vertebral tenderness Extremity Exam: normal inspection, pelvis stable, other (Left knee pain, tenderness. No effusion, no overlying skin changes) Neurologic Exam: alert, oriented x 3, cooperative, normal mood/affect, nml cerebellar function, sensation nml, No motor deficits Skin Exam: normal color, warm, dry SpO2: 96 - Course Nursing assessment & vital signs reviewed: Yes Ordered Tests: Active Orders 24 hr Category Date Time Status Code Status Order ROUTINE Care 08/04/22 03:45 Ordered IV Care Q6H Care 08/04/22 03:45 Ordered IV Insertion STAT Care 08/03/22 23:44 Active NPO (ED) STAT Care 08/03/22 23:44 Active POCT Glucose Check AC Care 08/04/22 03:[address] in Observation ROUTINE Care 08/04/22 03:45 Ordered Telemetry q4h Care 08/04/22 01:37 Active NPO Diet 08/04/22 03:45 Ordered ABDOMEN AND PELVIS W CONTRAST [CT] Routine Exams 08/04/22 02:04 Taken LOWER EXTREMITY WO CONTRAST [CT] Stat Exams 08/03/22 23:51 Taken CBC W DIFF AM.LAB Lab 08/04/22 04:00 Ordered CMP AM.LAB Lab 08/04/22 04:00 Ordered Lactic Acid AM.LAB Lab 08/04/22 04:00 Ordered Lactic Acid Stat Lab 08/03/22 23:56 Completed PROTIME WITH INR AM.LAB Lab 08/04/22 04:00 Ordered VENOUS BLOOD GAS AM.LAB Lab 08/04/22 04:00 Ordered Medication Summary Generic Name Dose Route Start Last Admin Trade Name Freq PRN Reason Stop Dose Admin Potassium Chloride 100 mls @ 50 mls/hr 08/04/22 01:45 08/04/22 02:39 Potassium Chloride 20 Meq In Water 100ml IV 08/04/22 05:44 50 mls/hr Q2H ROMULO Administration Discontinued Medications Generic Name Dose Route Start Last Admin Trade Name Freq PRN Reason Stop Dose Admin Diphenhydramine HCl 25 mg 08/03/22 23:44 08/04/22 00:05 Diphenhydramine Hcl 50 Mg/Ml Vial IV 08/03/22 23:45 25 mg STAT ONE Administration Diphenhydramine HCl Confirm 08/03/22 23:57 Diphenhydramine Hcl 50 Mg/Ml Vial Administered 08/03/22 23:58 Dose 50 mg .ROUTE .STK-MED ONE Droperidol 1.25 mg 08/03/22 23:44 08/04/22 00:05 Droperidol 5 Mg/2 Ml Vial IV 08/03/22 23:45 1.25 mg STAT ONE Administration Droperidol Confirm 08/03/22 23:57 Droperidol 5 Mg/2 Ml Vial Administered 08/03/22 23:58 Dose 5 mg .ROUTE .STK-MED ONE Hydromorphone HCl 1 mg 08/03/22 23:44 08/04/22 00:07 Hydromorphone 1 Mg/1ml Inj 1 Mg/Ml Syringe IV 08/03/22 23:45 1 mg STAT ONE Administration Hydromorphone HCl Confirm 08/03/22 23:57 Hydromorphone 1 Mg/1ml Inj 1 Mg/Ml Syringe Administered 08/03/22 23:58 Dose 1 mg .ROUTE .STK-MED ONE Sodium Chloride 1,000 mls @ 999 mls/hr 08/03/22 23:44 08/04/22 01:24 Sodium Chloride 0.9% 1000 Ml IV 08/04/22 00:44 Infused .Q1H1M STA Infusion Piperacillin Sod/Tazobactam 100 mls @ 200 mls/hr 08/03/22 23:46 08/04/22 00:05 Sod 4.5 gm/ Sodium Chloride IV 08/04/22 00:15 200 mls/hr STAT ONE Administration Sodium Chloride Confirm 08/03/22 23:58 Sodium Chloride 100ml Mini-Bag Plus Administered 08/03/22 23:59 Dose 100 mls @ ud IV .STK-MED ONE Sodium Chloride Confirm 08/03/22 23:58 Sodium Chloride 0.9% 1000 Ml Administered 08/03/22 23:59 Dose 1,000 mls @ ud .ROUTE .STK-MED ONE Ondansetron HCl 4 mg 08/03/22 23:44 08/04/22 00:05 Ondansetron Hcl 4 Mg/2 Ml Vial IV 08/03/22 23:45 4 mg STAT ONE Administration Ondansetron HCl Confirm 08/03/22 23:56 Ondansetron Hcl 4 Mg/2 Ml Vial Administered 08/03/22 23:57 Dose 4 mg .ROUTE .STK-MED ONE Piperacillin Sod/Tazobactam Sod Confirm 08/03/22 23:57 Piperacillin/Tazobactam Sodium 4.5 Gm Vial Administered 08/03/22 23:58 Dose 4.5 gm IV .STK-MED ONE Lab/Rad Data: Laboratory Result Diagrams 08/03/22 00:10 08/03/22 00:10 Laboratory Results 08/03/22 08/03/22 08/03/22 Range/Units 23:56 00:10 00:10 WBC (4.0-10.5) x10^3/uL RBC (4.1-5.4) x10^6/uL Hgb (12.0-16.0) g/dL Hct (35-47) % MCV (78-100) fL MCH (26-32) pg MCHC (32-36) g/dL RDW (11.5-14.0) % Plt Count (150-450) x10^3/uL MPV (7.5-11.0) fL Gran % (36.0-66.0) % Immature Gran % (Auto) (0.00-0.4) % Nucleat RBC Rel Count (0.00-0.1) % Eos # (Auto) (0-0.5) x10^3/uL Immature Gran # (Auto) (0.00-0.03) x10^3u/L Absolute Lymphs (auto) (1.0-4.6) x10^3/uL Absolute Monos (auto) (0.0-1.3) x10^3/uL Absolute Nucleated RBC (0.00-0.01) x10^3u/L Lymphocytes % (24.0-44.0) % Monocytes % (0.0-12.0) % Eosinophils % (0.00-5.0) % Basophils % (0.0-0.4) % Absolute Granulocytes (1.4-6.9) x10^3/uL Basophils # (0-0.4) x10^3/uL ESR 56 H (0-20) mm/hr Sodium 137 (137-145) mmol/L Potassium 2.7 L* (3.5-5.1) mmol/L Chloride 106 (98-107) mmol/L Carbon Dioxide 21 L (22-30) mmol/L Anion Gap 12.2 (5-15) MEQ/L BUN 18 H (7-17) mg/dL Creatinine 0.95 (0.52-1.04) mg/dL Estimated GFR > 60.0 ML/MIN Glucose 112 H (74-106) mg/dL Lactic Acid 1.1 (0.4-2.0) Calcium 7.6 L (8.4-10.2) mg/dL Total Bilirubin 0.50 (0.2-1.3) mg/dL AST 15 (14-36) U/L ALT 17 (0-35) U/L Alkaline Phosphatase 91 (38-126) U/L Serum Total Protein 7.5 (6.3-8.2) g/dL Albumin 2.8 L (3.5-5.0) g/dL Lipase 354 H (23-300) U/L 08/03/22 Range/Units 00:10 WBC 9.3 (4.0-10.5) x10^3/uL RBC 3.68 L (4.1-5.4) x10^6/uL Hgb 9.9 L (12.0-16.0) g/dL Hct 31.4 L (35-47) % MCV 85.3 (78-100) fL MCH 26.9 (26-32) pg MCHC 31.5 L (32-36) g/dL RDW 14.5 H (11.5-14.0) % Plt Count 277 (150-450) x10^3/uL MPV 9.7 (7.5-11.0) fL Gran % 71.2 H (36.0-66.0) % Immature Gran % (Auto) 0.4 (0.00-0.4) % Nucleat RBC Rel Count 0.0 (0.00-0.1) % Eos # (Auto) 0.04 (0-0.5) x10^3/uL Immature Gran # (Auto) 0.04 H (0.00-0.03) x10^3u/L Absolute Lymphs (auto) 1.35 (1.0-4.6) x10^3/uL Absolute Monos (auto) 1.24 (0.0-1.3) x10^3/uL Absolute Nucleated RBC 0.00 (0.00-0.01) x10^3u/L Lymphocytes % 14.5 L (24.0-44.0) % Monocytes % 13.4 H (0.0-12.0) % Eosinophils % 0.4 (0.00-5.0) % Basophils % 0.1 (0.0-0.4) % Absolute Granulocytes 6.60 (1.4-6.9) x10^3/uL Basophils # 0.01 (0-0.4) x10^3/uL ESR (0-20) mm/hr Sodium (137-145) mmol/L Potassium (3.5-5.1) mmol/L Chloride (98-107) mmol/L Carbon Dioxide (22-30) mmol/L Anion Gap (5-15) MEQ/L BUN (7-17) mg/dL Creatinine (0.52-1.04) mg/dL Estimated GFR ML/MIN Glucose (74-106) mg/dL Lactic Acid (0.4-2.0) Calcium (8.4-10.2) mg/dL Total Bilirubin (0.2-1.3) mg/dL AST (14-36) U/L ALT (0-35) U/L Alkaline Phosphatase (38-126) U/L Serum Total Protein (6.3-8.2) g/dL Albumin (3.5-5.0) g/dL Lipase (23-300) U/L - Progress Progress: improved Progress Note: 08/03/22 23:57 Differential diagnosis includes ruptured bowel, bowel obstruction, infection, wound dehiscence, knee fracture. Will obtain basic labs, blood cultures, EKG, will empirically start broad-spectrum antibiotics on the patient. Most likely will need to be transferred to [facility], Dr. David. 08/04/22 03:10 CT scan demonstrates small multiloculated fluid gas collection in the right lower quadrant inseparable from the small bowel small bowel loops and ventral abdominal wall. Largest loculation is 3.5 x 6 cm suggestion of a sinus tract extending from the collection to the liver margin. Certainly this could be postop infection, abscess. Given her tachycardia, borderline blood pressure. I do feel patient should be transferred to a higher level of care. We did discuss with [facility] [employer]. Currently have a page out to the patient's on-call surgeon. 08/04/22 03:49 I was able to talk to Dr. David. This is the patient's colorectal surgeon. He did accept the patient to [facility]. Unfortunately there are no beds there at this point time. They do not have an ER to go ER to ER. I did discuss going ER to ER to [facility] for the best patient care. [facility] ER [facility]ul[facility]. Therefore, we will have to wait for a bed. I did discuss this with the refinery operator vapor recovery unit and Dr. David. They did feel somewhat comfortable with patient waiting here from my understanding. Given all this, patient will need to be admitted to the hospital team here. I discussed with Dr. Rodriguez of the hospital team. We went over the case in detail. She did accept the patient to her service. Discussed with .: Yina Will see patient in: hospital (observation) Counseled pt/family regarding: lab results, diagnosis, rad results - Departure Departure Disposition: Observation Clinical Impression: Post op infection, Hypokalemia, Vomiting, Exacerbation of Crohn's disease Condition: Stable Critical Care Time: No Critical Care Time(excluding separately billable procedures): Critical 30-74 mins Referrals: LEE JENKINS MD [Primary Care Provider] - Follow up/PCP as directed
[2022-08-03] MEDS ORDERED: Sodium Chloride 100ML MINI-BAG PLUS 100 ML IV ONE (23:58)
[2022-08-03] MEDS ORDERED: Sodium Chloride 0.9% 1000 ML 1,000 ML ONE (23:58)
[2022-08-04 00:16] LABS: Basophil (Absolute #) 0.01 x10^3/uL (0-0.4); Eosinophil % 0.4 % (0.00-5.0); Eosinophil (Absolute #) 0.04 x10^3/uL (0-0.5); Hematocrit 31.4 % (35-47); Hemoglobin 9.9 g/dL (12.0-16.0); Lymphocyte (Absolute #) 1.35 x10^3/uL (1.0-4.6); Lymphocytes % 14.5 % (24.0-44.0); Mean Cell Volume 85.3 fL (78-100); Mean Corpuscular Hemoglobin 26.9 pg (26-32); Mean Corpuscular Hgb Concent. 31.5 g/dL (32-36); Mean Platelet Volume 9.7 fL (7.5-11.0); Monocyte (Absolute #) 1.24 x10^3/uL (0.0-1.3); Monocytes % 13.4 % (0.0-12.0); Neutrophil % 71.2 % (36.0-66.0); Platelet Count 277 x10^3/uL (150-450); Red Blood Count 3.68 x10^6/uL (4.1-5.4); Red Cell Distribution Width 14.5 % (11.5-14.0); White Blood Count 9.3 x10^3/uL (4.0-10.5)
[2022-08-04 00:29] LABS: ALBUMIN 2.8 g/dL (3.5-5.0); ALKALINE PHOSPHATASE 91 U/L (38-126); ANION GAP 12.2 MEQ/L (5-15); BLOOD UREA NITROGEN 18 mg/dL (7-17); CHLORIDE 106 mmol/L (98-107); Calcium 7.6 mg/dL (8.4-10.2); Carbon Dioxide 21 mmol/L (22-30); Creatinine 1 0.95 mg/dL (0.52-1.04); EST GLOMERULAR FILTRATION RATE > 60.0 ML/MIN; Glucose 112 mg/dL (74-106); LIPASE 354 U/L (23-300); SGOT/AST 15 U/L (14-36); SGPT/ALT 17 U/L (0-35); SODIUM 137 mmol/L (137-145); Total Protein 7.5 g/dL (6.3-8.2)
[2022-08-04 00:33] LABS: Potassium 2.7 mmol/L (3.5-5.1)
[2022-08-04] MEDS: POTASSIUM CHLORIDE 20 mEq IN WATER 100ML 100 ML IV SCH ×4 (02:39→17:22)
[2022-08-04] MEDS ORDERED: MORPHINE SULFATE 2 MG INJ IV PRN (03:45)
[2022-08-04] MEDS ORDERED: PHARMACY DOSING REQUIRED: VANCOMYCIN IV ONE (03:45)
[2022-08-04] MEDS ORDERED: SODIUM CHLORIDE 0.9% W/ 40 mEq KCL 1000ML 1,000 ML IV SCH (04:00)
[2022-08-04] MEDS ORDERED: Sodium Chloride 0.9% 1000 ML 1,000 ML ONE (04:22)
[2022-08-04 05:06] LABS: INFLUENZA A NEGATIVE (NEGATIVE); INFLUENZA B NEGATIVE (NEGATIVE); RESPIRATORY SYNCTIAL VIRUS NEGATIVE (Negative); SARS-CoV-2 Xpert Express NEGATIVE (NEGATIVE)
[2022-08-04] MEDS: Zofran 4 MG/2 ML VIAL IV PRN ×3 (07:16→16:47)
[2022-08-04] MEDS: PIPERACILLIN/TAZOBACTAM 3.375 GM in Sodium Chloride 100ML MINI-BAG PLUS 100 ML IV SCH ×3 (08:09→19:49)
--- NOTE | 2022-08-04 09:05 | XRAY ---
Indication: Pain, vomiting, nausea, and ruptured bowel. History Crohn's. Multiple contiguous axial images obtained through the abdomen and pelvis using 80 cc Isovue 370 contrast. Enteric Gastrografin contrast also used. Comparison: July 02, 2022 Lung bases now demonstrates mild dependent atelectasis. No infiltrate or effusion. Heart is not enlarged. Feeding catheter has been removed in the interim. Again right hemicolectomy with again mesenteric induration and percutaneous pigtail catheter at the level of umbilicus. Right hemiabdomen now demonstrates developing tiny free fluid but no contrast extravasation. Right midabdomen now demonstrates a 1.8 x 2.2 cm fluid collection laterally with air bubbles and rim of enhancement (image 59, series 4) concerning developing abscess. Small right midabdomen mesenteric nodes presumed reactive. Stomach and small/large bowel loops are now fluid/enteric contrast distended throughout with synchronous fluid leveling favoring ileus. Again fatty liver, cholecystectomy, and hysterectomy. Remaining liver, pancreas, spleen, adrenal glands, kidneys, ureters, bladder, and aorta are unremarkable. No pathologic retroperitoneal lymphadenopathy. Impression: 1. Again right hemicolectomy with percutaneous umbilical drainage catheter. 2. Right lateral midabdomen suspicious fluid collection with air bubbles and enhancement worrisome for abscess. This was not appreciated on previous noncontrasted exam. Small reactive mesenteric lymph nodes. 3. Again incidental fatty liver. Comment: Preliminary interpretation made by [facility]. No critical discrepancy.
--- NOTE | 2022-08-04 09:07 | XRAY ---
Indication: Pain following fall. Multiple contiguous axial images obtained through the left knee. Sagittal and coronal reformatted images obtained. Comparison: None Normal bones, articulation, and noncontrasted soft tissues. Impression: Normal CT left knee. Comment: Preliminary interpretation made by [facility]. No critical discrepancy.
[2022-08-04] MEDS: VANCOMYCIN 1 GRAM/200 ML BAG 1 GM/200 ML PIGGYBACK IV SCH (09:33)
[2022-08-04 10:53] LABS: Absolute Neutrophil Ct (ANC) 3.76 x10^3/uL (1.4-6.9); Basophil (Absolute #) 0.01 x10^3/uL (0-0.4); Eosinophil % 1.7 % (0.00-5.0); Hematocrit 26.5 % (35-47); Hemoglobin 8.2 g/dL (12.0-16.0); Lymphocyte (Absolute #) 1.05 x10^3/uL (1.0-4.6); Lymphocytes % 17.5 % (24.0-44.0); Mean Cell Volume 87.5 fL (78-100); Mean Corpuscular Hemoglobin 27.1 pg (26-32); Mean Corpuscular Hgb Concent. 30.9 g/dL (32-36); Mean Platelet Volume 9.6 fL (7.5-11.0); Monocyte (Absolute #) 1.06 x10^3/uL (0.0-1.3); Monocytes % 17.6 % (0.0-12.0); Neutrophil % 62.5 % (36.0-66.0); Platelet Count 205 x10^3/uL (150-450); Red Blood Count 3.03 x10^6/uL (4.1-5.4); Red Cell Distribution Width 14.7 % (11.5-14.0)
[2022-08-04 10:58] LABS: Lactic Acid 1.3 (0.4-2.0); VBG BASE EXCESS -6.2 (-2.0-2.0); VBG CARBOXYHEMOGLOBIN 1.9 % T HGB (0.0-6.9); VBG HCO3- 18.9 meq/L (22-28); VBG HEMOGLOBIN 8.6; VBG O2 SATURATION 90.7 (95-100); VBG POTASSIUM 2.5 (3.5-5.1); VBG pH 7.34 (7.32-7.42)
[2022-08-04 11:07] LABS: INR 1.24 (0.8-3.0); PROTIME 12.9 SECONDS (9.4-12.5)
[2022-08-04 11:17] LABS: ALBUMIN 2.3 g/dL (3.5-5.0); ALKALINE PHOSPHATASE 60 U/L (38-126); BLOOD UREA NITROGEN 15 mg/dL (7-17); CHLORIDE 112 mmol/L (98-107); Calcium 7.2 mg/dL (8.4-10.2); Carbon Dioxide 18 mmol/L (22-30); Creatinine 1 1.04 mg/dL (0.52-1.04); EST GLOMERULAR FILTRATION RATE > 60.0 ML/MIN; Glucose 88 mg/dL (74-106); SGOT/AST 19 U/L (14-36); SGPT/ALT 16 U/L (0-35); SODIUM 138 mmol/L (137-145); Total Protein 6.3 g/dL (6.3-8.2)
[2022-08-04 11:23] LABS: Potassium 2.6 mmol/L (3.5-5.1)
[2022-08-04] MEDS ORDERED: OXYCODONE-ACETAMINOPHEN 10-325 PO PRN (11:32)
[2022-08-04] MEDS ORDERED: K-LYTE PO SCH (12:00)
[2022-08-04] MEDS: Sodium Chloride 0.9% W/ 20 mEq KCl/LITER 1,000 ML IV SCH ×2 (12:20→22:26)
[2022-08-04] MEDS: Hydromorphone 1 mg/ml Injection IV PRN ×3 (12:39→20:52)
[2022-08-04] MEDS ORDERED: OXYCODONE HCL 5 MG PO PRN (13:27)
[2022-08-04] MEDS ORDERED: NON-FORMULARY ITEM (Potassium Chloride [Potassium Chloride] 40 MEQ/15 ML Liquid) PO SCH (13:30)
[2022-08-04] MEDS ORDERED: Cyanocobalamin B-12 1000 MCG/ML IJ SCH (13:30)
[2022-08-04] MEDS ORDERED: Klor Con PO PRN (13:38)
[2022-08-04] MEDS ORDERED: Oxy-IR 5 MG PO PRN (13:38)
--- NOTE | 2022-08-04 14:09 | PCM.HP ---
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 Patient states she is not keeping food down or much liquid down for several days due to nausea and vomiting. She was receiving tube feeds but states she wretchedand the tube came out , states she notified her surgeon's nurse when this happened approx 2 weeks ago. Since admission to [facility],nurse has been using bath towels to catch copious amounts of fluid draining from abdominal fistulas . Patient is not tolerating po, vomiting even jello. I spoke to Dr David to report patient's condition and to try to expedite transfer to [facility]. He stated no bed availability and did not offer any treatment plan. I requested local surgeon to eval. Op reports and discharge summaries have been requested. PMHx includes Uterine cancer,Hx DVT,Crohns,GERD,PUD,pancreatitis,an emia,anxiety/bipolar depression,migraines and pseudoseizures. Note patient is allergic to Tylenol causes throat to swell. - Review of Systems Constitutional: Lethargy, Weakness Eyes: No Symptoms Ears, Nose, & Throat: No Symptoms Respiratory: No Symptoms Cardiac: No Symptoms Abdominal/Gastrointestinal: Abdominal Pain, Nausea, Vomiting, Appetite Changes (is hungary but cannot eat without vomiting) Genitourinary Symptoms: No Symptoms Musculoskeletal: No Symptoms Skin: Dryness, Other (chronic fisula abdomen,getting larger) Neurological: Other (hx pseudoseizure but none recently) Psychological: Anxiety, Depression (chronic without suicidal ideation) Hematologic/Lymphatic: Anemia Immunological/Allergic: Other (allergic to Tylenol) Medications & Allergies Home Medications: Home Medication List Cyanocobalamin 1000 Mcg/ml [Cyanocobalamin B-12 1000 MCG/ML] 1,000 mcg IJ DIRECTIONS UNKNOWN 05/14/22 [History Confirmed 08/14/22] Ergocalciferol (Vitamin D2) [Vitamin D2] 50,000 unit PO Q7D 05/14/22 [History Confirmed 08/14/22] Oxycodone HCl 10 mg PO Q6HPRN PRN 05/14/22 [History Confirmed 08/14/22] Pyridoxine HCl (Vitamin B6) [Vitamin B-6] 220 mg DAILY 06/21/22 [History Confirmed 08/14/22] Vitamin A Palmitate [Vitamin A] 3,000 units DAILY 06/21/22 [History Confirmed 08/14/22] Zinc Gluconate [Zinc] 50 mg PO DAILY 06/21/22 [History Confirmed 08/14/22] Prochlorperazine Maleate 5 mg* [Compazine 5 MG] 5 mg PO TID PRN #60 tablet 08/13/22 [Rx Confirmed 08/14/22] Allergies/Adverse Reactions: Allergies Allergy/AdvReac Type Severity Reaction Status Date / Time acetaminophen [From Tylenol] Allergy Severe Swelling Verified 08/13/22 14:32 of Tongue and Lips hydrocodone [From Lortab] Allergy Severe Swelling Verified 08/13/22 14:32 of Tongue and Lips natalizumab [From Tysabri] Allergy Severe Hives Verified 08/13/22 14:32 onion Allergy Severe Swelling Verified 08/13/22 14:32 of Tongue and Lips tomato Allergy Severe Tightness Verified 08/13/22 14:32 of Throat latex Allergy Intermediate Hives Verified 08/13/22 14:32 morphine AdvReac Severe Verified 08/13/22 14:32 - Past Medical History Past Medical History: Yes Neurological History: Migraines, Seizures ENT History: No Pertinent History Cardiac History: No Pertinent History, Deep Vein Thrombosis Respiratory History: No Pertinent History Endocrine Medical History: No Pertinent History Musculoskelatal History: No Pertinent History GI Medical History: Crohns Disease, GERD, Pancreatitis, Ulcer History: Renal Disease Pyscho-Social History: Anxiety, Bipolar, Depression Reproductive Disorders: Fibroids, Uterine Cancer Comment: unknown source of acute kidney failure 04/28/2022. 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 - Female History Hx Last Menstrual Period: HYSTERECTOMY Are you now?: No - Past Surgical History Past Surgical History: Yes Neuro Surgical History: No Pertinent History Cardiac History: No Pertinent History Respiratory Surgery: No Pertinent History GI Surgical History: Cholecystectomy, Other Genitourinary Surgical Hx: No Pertinent History Musculskeletal Surgical Hx: Orthopedic Surgery Female Surgical History: Hysterectomy, Dilation & Curettage, Other Other Surgical History: intestine resect 4-5 times, pins R foot, multiple port placement - Social History Smoking Status: Never smoker Exposure to second hand smoke: No Alcohol: None Drug Use: marijuana - Physical Exam Vital Signs: Vital Signs - 24 hr Temp Pulse Resp BP Pulse Ox 08/04/22 13:09 97.5 F 97 H 18 80/46 97 08/04/22 11:38 97.5 F 97 H 18 80/46 97 08/04/22 06:46 97.5 F 98 H 16 97 08/04/22 05:00 104 H 18 89/59 98 08/04/22 03:51 96 08/04/22 03:00 95 H 16 98/59 100 08/03/22 23:07 98.1 F 112 H 18 109/87 96 General Appearance: moderate distress (wretching 7 times untill all grren jello came up.), lethargy Neurologic Exam: alert, oriented x 3, cooperative Eye Exam: eyes nml inspection Ears, Nose, Throat Exam: normal ENT inspection Neck Exam: normal inspection Respiratory Exam: diminished breath sounds (bases,abdominal pain with deep breath) Cardiovascular Exam: tachycardia Gastrointestinal/Abdomen Exam: tenderness (generalized), distention, guarding Pelvic Exam: not done Rectal Exam: not done Back Exam: normal inspection Skin Exam: dry (decreased skin turgor), pale (dark periorbital) Results - Labs Lab/Micro Results: Lab Results-Last 24 Hours 08/03/22 08/03/22 08/03/22 Range/Units 00:10 00:10 00:10 WBC 9.3 (4.0-10.5) x10^3/uL RBC 3.68 L (4.1-5.4) x10^6/uL Hgb 9.9 L (12.0-16.0) g/dL Hct 31.4 L (35-47) % MCV 85.3 (78-100) fL MCH 26.9 (26-32) pg MCHC 31.5 L (32-36) g/dL RDW 14.5 H (11.5-14.0) % Plt Count 277 (150-450) x10^3/uL MPV 9.7 (7.5-11.0) fL Gran % 71.2 H (36.0-66.0) % Immature Gran % (Auto) 0.4 (0.00-0.4) % Nucleat RBC Rel Count 0.0 (0.00-0.1) % Eos # (Auto) 0.04 (0-0.5) x10^3/uL Immature Gran # (Auto) 0.04 H (0.00-0.03) x10^3u/L Absolute Lymphs (auto) 1.35 (1.0-4.6) x10^3/uL Absolute Monos (auto) 1.24 (0.0-1.3) x10^3/uL Absolute Nucleated RBC 0.00 (0.00-0.01) x10^3u/L Lymphocytes % 14.5 L (24.0-44.0) % Monocytes % 13.4 H (0.0-12.0) % Eosinophils % 0.4 (0.00-5.0) % Basophils % 0.1 (0.0-0.4) % Absolute Granulocytes 6.60 (1.4-6.9) x10^3/uL Basophils # 0.01 (0-0.4) x10^3/uL ESR 56 H (0-20) mm/hr PT (9.4-12.5) SECONDS INR (0.8-3.0) pO2/FiO2 Ratio % VBG pH (7.32-7.42) VBG pCO2 at Pat Temp (42-55) mm/Hg VBG pO2 at Pat Temp (25-40) mm/Hg VBG HCO3 (22-28) meq/L VBG O2 Sat (Serg) (95-100) VBG Base Excess (-2.0-2.0) VBG Hemoglobin VBG Carboxyhemoglobin (0.0-6.9) % T HGB POC Potassium (3.5-5.1) Sodium 137 (137-145) mmol/L Potassium 2.7 L* (3.5-5.1) mmol/L Chloride 106 (98-107) mmol/L Carbon Dioxide 21 L (22-30) mmol/L Anion Gap 12.2 (5-15) MEQ/L BUN 18 H (7-17) mg/dL Creatinine 0.95 (0.52-1.04) mg/dL Estimated GFR > 60.0 ML/MIN Glucose 112 H (74-106) mg/dL Lactic Acid (0.4-2.0) Calcium 7.6 L (8.4-10.2) mg/dL Total Bilirubin 0.50 (0.2-1.3) mg/dL AST 15 (14-36) U/L ALT 17 (0-35) U/L Alkaline Phosphatase 91 (38-126) U/L Serum Total Protein 7.5 (6.3-8.2) g/dL Albumin 2.8 L (3.5-5.0) g/dL Lipase 354 H (23-300) U/L Influenza Type A Ag (NEGATIVE) Influenza Type B Ag (NEGATIVE) RSV (PCR) (Negative) SARS-CoV-2 (PCR) (NEGATIVE) 08/03/22 08/04/22 08/04/22 Range/Units 23:56 04:25 10:54 WBC 6.0 (4.0-10.5) x10^3/uL RBC 3.03 L (4.1-5.4) x10^6/uL Hgb 8.2 L (12.0-16.0) g/dL Hct 26.5 L (35-47) % MCV 87.5 (78-100) fL MCH 27.1 (26-32) pg MCHC 30.9 L (32-36) g/dL RDW 14.7 H (11.5-14.0) % Plt Count 205 (150-450) x10^3/uL MPV 9.6 (7.5-11.0) fL Gran % 62.5 (36.0-66.0) % Immature Gran % (Auto) 0.5 H (0.00-0.4) % Nucleat RBC Rel Count 0.0 (0.00-0.1) % Eos # (Auto) 0.10 (0-0.5) x10^3/uL Immature Gran # (Auto) 0.03 (0.00-0.03) x10^3u/L Absolute Lymphs (auto) 1.05 (1.0-4.6) x10^3/uL Absolute Monos (auto) 1.06 (0.0-1.3) x10^3/uL Absolute Nucleated RBC 0.00 (0.00-0.01) x10^3u/L Lymphocytes % 17.5 L (24.0-44.0) % Monocytes % 17.6 H (0.0-12.0) % Eosinophils % 1.7 (0.00-5.0) % Basophils % 0.2 (0.0-0.4) % Absolute Granulocytes 3.76 (1.4-6.9) x10^3/uL Basophils # 0.01 (0-0.4) x10^3/uL ESR (0-20) mm/hr PT (9.4-12.5) SECONDS INR (0.8-3.0) pO2/FiO2 Ratio % VBG pH (7.32-7.42) VBG pCO2 at Pat Temp (42-55) mm/Hg VBG pO2 at Pat Temp (25-40) mm/Hg VBG HCO3 (22-28) meq/L VBG O2 Sat (Serg) (95-100) VBG Base Excess (-2.0-2.0) VBG Hemoglobin VBG Carboxyhemoglobin (0.0-6.9) % T HGB POC Potassium (3.5-5.1) Sodium (137-145) mmol/L Potassium (3.5-5.1) mmol/L Chloride (98-107) mmol/L Carbon Dioxide (22-30) mmol/L Anion Gap (5-15) MEQ/L BUN (7-17) mg/dL Creatinine (0.52-1.04) mg/dL Estimated GFR ML/MIN Glucose (74-106) mg/dL Lactic Acid 1.1 (0.4-2.0) Calcium (8.4-10.2) mg/dL Total Bilirubin (0.2-1.3) mg/dL AST (14-36) U/L ALT (0-35) U/L Alkaline Phosphatase (38-126) U/L Serum Total Protein (6.3-8.2) g/dL Albumin (3.5-5.0) g/dL Lipase (23-300) U/L Influenza Type A Ag NEGATIVE (NEGATIVE) Influenza Type B Ag NEGATIVE (NEGATIVE) RSV (PCR) NEGATIVE (Negative) SARS-CoV-2 (PCR) NEGATIVE (NEGATIVE) 08/04/22 08/04/22 08/04/22 Range/Units 10:54 10:54 10:54 WBC (4.0-10.5) x10^3/uL RBC (4.1-5.4) x10^6/uL Hgb (12.0-16.0) g/dL Hct (35-47) % MCV (78-100) fL MCH (26-32) pg MCHC (32-36) g/dL RDW (11.5-14.0) % Plt Count (150-450) x10^3/uL MPV (7.5-11.0) fL Gran % (36.0-66.0) % Immature Gran % (Auto) (0.00-0.4) % Nucleat RBC Rel Count (0.00-0.1) % Eos # (Auto) (0-0.5) x10^3/uL Immature Gran # (Auto) (0.00-0.03) x10^3u/L Absolute Lymphs (auto) (1.0-4.6) x10^3/uL Absolute Monos (auto) (0.0-1.3) x10^3/uL Absolute Nucleated RBC (0.00-0.01) x10^3u/L Lymphocytes % (24.0-44.0) % Monocytes % (0.0-12.0) % Eosinophils % (0.00-5.0) % Basophils % (0.0-0.4) % Absolute Granulocytes (1.4-6.9) x10^3/uL Basophils # (0-0.4) x10^3/uL ESR (0-20) mm/hr PT 12.9 H (9.4-12.5) SECONDS INR 1.24 (0.8-3.0) pO2/FiO2 Ratio 21.0 % VBG pH 7.34 (7.32-7.42) VBG pCO2 at Pat Temp 35 L (42-55) mm/Hg VBG pO2 at Pat Temp 56 H (25-40) mm/Hg VBG HCO3 18.9 L (22-28) meq/L VBG O2 Sat (Serg) 90.7 L (95-100) VBG Base Excess -6.2 L (-2.0-2.0) VBG Hemoglobin 8.6 VBG Carboxyhemoglobin 1.9 (0.0-6.9) % T HGB POC Potassium 2.5 L* (3.5-5.1) Sodium 138 (137-145) mmol/L Potassium 2.6 L* (3.5-5.1) mmol/L Chloride 112 H (98-107) mmol/L Carbon Dioxide 18 L (22-30) mmol/L Anion Gap 10.0 (5-15) MEQ/L BUN 15 (7-17) mg/dL Creatinine 1.04 (0.52-1.04) mg/dL Estimated GFR > 60.0 ML/MIN Glucose 88 (74-106) mg/dL Lactic Acid 1.3 (0.4-2.0) Calcium 7.2 L (8.4-10.2) mg/dL Total Bilirubin 0.50 (0.2-1.3) mg/dL AST 19 (14-36) U/L ALT 16 (0-35) U/L Alkaline Phosphatase 60 (38-126) U/L Serum Total Protein 6.3 (6.3-8.2) g/dL Albumin 2.3 L (3.5-5.0) g/dL Lipase (23-300) U/L Influenza Type A Ag (NEGATIVE) Influenza Type B Ag (NEGATIVE) RSV (PCR) (Negative) SARS-CoV-2 (PCR) (NEGATIVE) - Radiology Impressions Radiology Exams & Impressions: Radiology Procedures Category Date Time Status ABDOMEN AND PELVIS W CONTRAST [CT] Routine Exams 08/04/22 02:04 Completed LOWER EXTREMITY WO CONTRAST [CT] Stat Exams 08/03/22 23:51 Completed Assessment/Plan (1) Malnutrition due to starvation Status: Acute Assessment & Plan: IV fluids ,will need better acsess for TPN Code(s): E46 - UNSPECIFIED PROTEIN-CALORIE MALNUTRITION; T73.0XXS - STARVATION, SEQUELA (2) Abdominal pain Status: Acute Qualifiers: Abdominal location: generalized Qualified Code(s): R10.84 - Generalized abdominal pain Assessment & Plan: due to enteritis colitis crohns Code(s): R10.9 - UNSPECIFIED ABDOMINAL PAIN (3) Cutaneous fistula Status: Chronic Assessment & Plan: chronic with worsening Code(s): L98.8 - OTH DISRD OF THE SKIN AND SUBCUTANEOUS TISSUE (4) Exacerbation of Crohn's disease Status: Acute Qualifiers: Digestive disease complication type: with fistula Qualified Code(s): K50.913 - Crohn's disease, unspecified, with fistula Code(s): K50.90 - CROHN'S DISEASE, UNSPECIFIED, WITHOUT COMPLICATIONS (5) Infected fluid collection with fistula Status: Acute Assessment & Plan: culture pending Code(s): L08.9 - LOCAL INFECTION OF THE SKIN AND SUBCUTANEOUS TISSUE, UNSP; L98.8 - OTH DISRD OF THE SKIN AND SUBCUTANEOUS TISSUE (6) Anemia Status: Chronic Code(s): D64.9 - ANEMIA, UNSPECIFIED
[2022-08-04] MEDS: Vitamin B-6 (Pyridoxine) 100 MG PO SCH (14:25)
[2022-08-04] MEDS: Zinc Gluconate 50 MG PO SCH (14:26)
[2022-08-04] MEDS ORDERED: MEDICATION INTERVENTION MC SCH (14:30)
--- NOTE | 2022-08-04 15:37 | CONS ---
CONSULT DATE: 08/04/2022 HISTORY: This patient is seen for Dr. Joey Mike who is manufacturing plant controller for our group today. She is an unfortunate young 42-year-old that has had Crohn's disease, had four different bowel surgeries at by Dr. David apparently had multiple chronic fistulas. She had percutaneous drain in. She somehow got admitted through the emergency room to the floor here as there is not an immediate bed available reportedly instead of going emergency room to emergency room. She is absolutely not a candidate for surgical intervention here. She had some aches, pains, nausea and vomiting. PAST MEDICAL HISTORY: As mentioned above. Anxiety, depression, reflux, Crohn's disease, history of migraines. PAST SURGICAL HISTORY: She has had multiple surgeries at by Dr. David in the past. Multiple surgeries including right colectomy at in the past. I do not have the operative note here. Cholecystectomy. HOME MEDICATIONS: Cyanocobalamin, vitamin D2, oxycodone, potassium chloride, pyridoxine, vitamin A. ALLERGIES: ACETAMINOPHEN. HYDROCODONE. TYSABRI. MORPHINE. ONION. TOMATO. LATEX. LAB DATA AND TESTS: White count 6, hemoglobin 8.2. FAMILY HISTORY: Negative in regards to this specific problem. SOCIAL HISTORY: No alcohol abuse. REVIEW OF SYSTEMS: Fourteen systems reviewed per admission assessment. PHYSICAL EXAMINATION: GENERAL: Chronically ill female. HEENT: Sclera nonicteric. NECK: No JVD. CHEST: Equal excursion. CVS: Regular rhythm and pulse. ABDOMEN: Soft. She had some open tissue over her mid abdomen. EXTREMITIES: No cyanosis. NEURO: Alert. PSYCH: Appropriate mood and affect. IMPRESSION: This patient was seen for Dr. Cook who was manufacturing plant controller for our group. She is an unfortunate patient with Crohn's disease and multiple abdominal surgeries and resections at . She said she has had four surgeries. She has a chronic fistula and abscess. She is definitely not a candidate for any surgical intervention here locally. I feel she needs transfer to to her surgeon, Dr. David. I updated Dr. Rodriguez that this patient should not have been admitted here. Likely should go to the emergency room as this is not an appropriate level of care for this patient given her significant multiple surgeries at . She is waiting on a bed now. Next time she comes to the emergency room she should probably be sent from emergency room to emergency room as she is not a surgical candidate around here locally.
[2022-08-04] MEDS ORDERED: PHARMACY DOSING REQUEST MC ONE (15:52)
[2022-08-04] MEDS: Compazine 10 MG/2 ML IV PRN (20:15)
[2022-08-05] MEDS: PIPERACILLIN/TAZOBACTAM 3.375 GM in Sodium Chloride 100ML MINI-BAG PLUS 100 ML IV SCH ×4 (00:58→19:57)
[2022-08-05] MEDS: Compazine 10 MG/2 ML IV PRN ×2 (01:07→05:03)
[2022-08-05] MEDS: Hydromorphone 1 mg/ml Injection IV PRN ×4 (01:07→11:51)
[2022-08-05] MEDS: VANCOMYCIN 1 GRAM/200 ML BAG 1 GM/200 ML PIGGYBACK IV SCH ×2 (02:05→20:57)
[2022-08-05] MEDS: Vitamin B-6 (Pyridoxine) 100 MG PO SCH (09:13)
[2022-08-05] MEDS: Zinc Gluconate 50 MG PO SCH (09:13)
[2022-08-05] MEDS: Sodium Chloride 0.9% W/ 20 mEq KCl/LITER 1,000 ML IV SCH (09:15)
[2022-08-05] MEDS ORDERED: Vitamin B-6 (Pyridoxine) 100 MG PO SCH (10:00)
[2022-08-05] MEDS ORDERED: VITAMIN A PALMITATE 10000 UNIT PO SCH (10:00)
[2022-08-05] MEDS ORDERED: NON-FORMULARY ITEM (Zinc Gluconate 50 MG Tablet) PO SCH (10:00)
--- NOTE | 2022-08-05 13:25 | PCM.NOTE ---
Date and Time: 08/05/22 1320 Subjective Assessment: Patient continues to drain from abdominal fistulas tanish brown thick matter,multiple dressing changes . Has not tolerated any po -causes vomiting /wretching. Surgeon Dr David's nurse Silva phoned to check on patient. OBJECTIVE DATA Vital Signs: Vital Signs - 24 hr Temp Pulse Resp BP Pulse Ox 08/05/22 11:25 97.5 F 88 16 97 08/05/22 07:46 99 08/05/22 07:13 98.3 F 80 16 90/57 93 L 08/05/22 04:00 96.1 F 95 H 16 102/65 100 08/04/22 23:38 97.3 F 88 18 90/50 100 08/04/22 20:19 100 08/04/22 19:00 96.2 F 71 15 93/55 90 L 08/04/22 16:00 97.6 F 91 H 16 105/53 99 Pain Assessment - Last Documented Pain Intensity 7 Pain Scale Used 0-10 Pain Scale Intake and Output: Intake & Output 08/03/22 08/04/22 08/05/22 08/06/22 11:59 11:59 11:59 11:59 Intake Total 0 3171 Balance 0 3171 Weight 66 kg 66 kg Lab Results: Lab Results-Last 24 Hours 08/03/22 08/04/22 Range/Units 00:10 22:09 Potassium 3.7 D (3.5-5.1) mmol/L C-Reactive Prot, Quant 68 H (0-10) mg/L Radiology Exams: Radiology Procedures Category Date Time Status ABDOMEN AND PELVIS W CONTRAST [CT] Routine Exams 08/04/22 02:04 Completed LOWER EXTREMITY WO CONTRAST [CT] Stat Exams 08/03/22 23:51 Completed Multi-Disciplinary Progress Notes: Multi-Disciplinary Progress Notes 08/05/22 10:21 Case Management Note by Annemarie Weaver RESIST COATER DEVELOPER REPORTED TO THIS ROLL CAPPER THAT BED CONTROL @ REPORTS THAT PT COULD BE WAITING UP TO 5 DAYS FOR A BED TO OPEN UP AT . Initialized on 08/05/22 10:21 - END OF NOTE 08/05/22 08:15 Case Management Note by Clarita Ingram PATIENT STILL WAITING ON BED AT AT THIS TIME Initialized on 08/05/22 08:15 - END OF NOTE
[2022-08-05] MEDS ORDERED: DEX IV SCH ×4 (14:00)
[2022-08-05] MEDS ORDERED: LYTES IV SCH ×4 (14:00)
[2022-08-05] MEDS ORDERED: [UNRECOGNIZED DRUG - OTHER] IV SCH ×4 (14:00)
[2022-08-05] MEDS: HYDROMORPHONE 30 MG/30 ML-NS IV PRN (14:57)
[2022-08-05] MEDS ORDERED: Sodium Chloride 0.9% 1000 ML 1,000 ML IV STA (15:39)
[2022-08-05 18:16] LABS: ALBUMIN 2.5 g/dL (3.5-5.0); ALKALINE PHOSPHATASE 70 U/L (38-126); ANION GAP 9.9 MEQ/L (5-15); BLOOD UREA NITROGEN 10 mg/dL (7-17); CHLORIDE 120 mmol/L (98-107); Calcium 7.7 mg/dL (8.4-10.2); Creatinine 1 0.95 mg/dL (0.52-1.04); EST GLOMERULAR FILTRATION RATE > 60.0 ML/MIN; Glucose 115 mg/dL (74-106); MAGNESIUM 1.2 mg/dL (1.6-2.3); Potassium 3.5 mmol/L (3.5-5.1); SGOT/AST 16 U/L (14-36); SGPT/ALT 16 U/L (0-35); SODIUM 142 mmol/L (137-145); Total Protein 6.9 g/dL (6.3-8.2)
[2022-08-05 18:26] LABS: Carbon Dioxide 15 mmol/L (22-30)
[2022-08-05] MEDS: Zofran 4 MG/2 ML VIAL IV PRN (18:37)
[2022-08-06] MEDS: PIPERACILLIN/TAZOBACTAM 3.375 GM in Sodium Chloride 100ML MINI-BAG PLUS 100 ML IV SCH ×2 (02:28→06:46)
[2022-08-06 05:21] LABS: Hematocrit 28.9 % (35-47); Hemoglobin 8.7 g/dL (12.0-16.0); Mean Cell Volume 89.5 fL (78-100); Mean Corpuscular Hemoglobin 26.9 pg (26-32); Mean Corpuscular Hgb Concent. 30.1 g/dL (32-36); Mean Platelet Volume 9.5 fL (7.5-11.0); Platelet Count 259 x10^3/uL (150-450); Red Blood Count 3.23 x10^6/uL (4.1-5.4); White Blood Count 6.1 x10^3/uL (4.0-10.5)
[2022-08-06 05:45] LABS: ALBUMIN 2.2 g/dL (3.5-5.0); Total Protein 6.3 g/dL (6.3-8.2)
[2022-08-06 06:01] LABS: ALKALINE PHOSPHATASE 60 U/L (38-126); BLOOD UREA NITROGEN 10 mg/dL (7-17); CHLORIDE 119 mmol/L (98-107); Calcium 7.6 mg/dL (8.4-10.2); Creatinine 1 0.86 mg/dL (0.52-1.04); EST GLOMERULAR FILTRATION RATE > 60.0 ML/MIN; Glucose 96 mg/dL (74-106); MAGNESIUM 1.2 mg/dL (1.6-2.3); Potassium 4.1 mmol/L (3.5-5.1); SGOT/AST 21 U/L (14-36); SGPT/ALT 12 U/L (0-35); SODIUM 138 mmol/L (137-145); Total Protein 6.1 g/dL (6.3-8.2)
[2022-08-06] MEDS: Zofran 4 MG/2 ML VIAL IV PRN ×2 (06:46→10:38)
[2022-08-06 06:59] LABS: Carbon Dioxide 15 mmol/L (22-30)
[2022-08-06] MEDS: HYDROMORPHONE 30 MG/30 ML-NS IV PRN (07:31)
[2022-08-06] MEDS: Levofloxacin 500MG/100ML D5W 500 MG/100 ML BAG IV SCH (10:32)
[2022-08-06] MEDS: VITAMIN D2 PO SCH (10:32)
[2022-08-06] MEDS: Vitamin B-6 (Pyridoxine) 100 MG PO SCH (10:32)
[2022-08-06] MEDS: Zinc Gluconate 50 MG PO SCH (10:33)
[2022-08-06] MEDS: Compazine 10 MG/2 ML IV PRN (11:03)
[2022-08-06] MEDS: Ativan 2 MG/1 ML VIAL IV PRN (12:43)
[2022-08-06] MEDS ORDERED: TROUGH DRUG LEVELS IJ ONE (13:30)
[2022-08-06] MEDS ORDERED: [UNRECOGNIZED DRUG - OTHER] IV SCH ×5 (14:00)
[2022-08-06] MEDS ORDERED: LYTES IV SCH ×5 (14:00)
[2022-08-06] MEDS ORDERED: DEX IV SCH ×5 (14:00)
[2022-08-06] MEDS: Sodium Chloride 0.9% 1000 ML 1,000 ML IV SCH (16:09)
[2022-08-07] MEDS: Compazine 10 MG/2 ML IV PRN ×2 (04:12→23:27)
[2022-08-07] MEDS: Ativan 2 MG/1 ML VIAL IV PRN ×2 (04:13→23:27)
[2022-08-07] MEDS: Levofloxacin 500MG/100ML D5W 500 MG/100 ML BAG IV SCH (09:42)
[2022-08-07] MEDS: Zofran 4 MG/2 ML VIAL IV PRN (09:51)
[2022-08-07] MEDS: Zinc Gluconate 50 MG PO SCH (10:16)
[2022-08-07] MEDS: Vitamin B-6 (Pyridoxine) 100 MG PO SCH (10:16)
[2022-08-07 10:34] LABS: ALBUMIN 2.1 g/dL (3.5-5.0); ALKALINE PHOSPHATASE 56 U/L (38-126); ANION GAP 4.2 MEQ/L (5-15); BLOOD UREA NITROGEN 6 mg/dL (7-17); CHLORIDE 121 mmol/L (98-107); Calcium 7.4 mg/dL (8.4-10.2); Carbon Dioxide 17 mmol/L (22-30); Creatinine 1 0.67 mg/dL (0.52-1.04); EST GLOMERULAR FILTRATION RATE > 60.0 ML/MIN; Glucose 112 mg/dL (74-106); MAGNESIUM 2.2 mg/dL (1.6-2.3); SGOT/AST 13 U/L (14-36); SGPT/ALT 12 U/L (0-35); SODIUM 140 mmol/L (137-145); Total Protein 6.1 g/dL (6.3-8.2)
--- NOTE | 2022-08-07 11:49 | XRAY ---
Indication: PICC line placement. Comparison: None Portable chest demonstrates left arm PICC line with tip projecting over the SVC. Remaining heart, lungs, and bony thorax normal.
[2022-08-07] MEDS: Sodium Chloride 0.9% 1000 ML 1,000 ML IV SCH (11:53)
[2022-08-07] MEDS ORDERED: K-LYTE PO ONE (13:10)
[2022-08-07] MEDS ORDERED: LYTES IV SCH ×5 (14:00)
[2022-08-07] MEDS ORDERED: [UNRECOGNIZED DRUG - OTHER] IV SCH ×5 (14:00)
[2022-08-07] MEDS ORDERED: DEX IV SCH ×5 (14:00)
[2022-08-07] MEDS ORDERED: POTASSIUM CHLORIDE 20 mEq IN WATER 100ML 100 ML IV ONE ×2 (17:55→20:41)
[2022-08-07] MEDS: POTASSIUM CHLORIDE 20 mEq IN WATER 100ML 100 ML IV SCH ×2 (18:22→20:49)
[2022-08-07] MEDS: HYDROMORPHONE 30 MG/30 ML-NS IV PRN (19:23)
[2022-08-08 03:42] LABS: ALBUMIN 2.1 g/dL (3.5-5.0); ALKALINE PHOSPHATASE 53 U/L (38-126); ANION GAP 5.2 MEQ/L (5-15); BLOOD UREA NITROGEN 6 mg/dL (7-17); CHLORIDE 120 mmol/L (98-107); Calcium 7.4 mg/dL (8.4-10.2); Carbon Dioxide 19 mmol/L (22-30); Creatinine 1 0.74 mg/dL (0.52-1.04); EST GLOMERULAR FILTRATION RATE > 60.0 ML/MIN; Glucose 105 mg/dL (74-106); Potassium 3.7 mmol/L (3.5-5.1); SGOT/AST 15 U/L (14-36); SGPT/ALT 13 U/L (0-35); SODIUM 141 mmol/L (137-145)
[2022-08-08] MEDS: Sodium Chloride 0.9% 1000 ML 1,000 ML IV SCH (05:28)
--- NOTE | 2022-08-08 06:39 | PCM.NOTE ---
Date and Time: 08/08/22 0636 Subjective Assessment: Patient continues to have copious drainage from abdominal fistulas. Is now receiving TPN via pic line LUE. 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 OBJECTIVE DATA Vital Signs: Vital Signs - 24 hr Temp Pulse Resp BP Pulse Ox 08/08/22 04:00 97 F 81 20 114/52 95 08/07/22 23:52 97.6 F 90 18 111/73 100 08/07/22 23:23 18 95 08/07/22 20:00 98.2 F 87 18 105/54 94 L 08/07/22 19:23 18 08/07/22 16:00 97.1 F 100 H 16 109/57 95 08/07/22 11:59 96.9 F 92 H 16 100/57 100 08/07/22 08:00 96.8 F 87 17 108/67 97 Pain Assessment - Last Documented Pain Intensity 8 Pain Scale Used 0-10 Pain Scale Intake and Output: Intake & Output 08/05/22 08/06/22 08/07/22 08/08/22 11:59 11:59 11:59 11:59 Intake Total 3171 3635 2253 Output Total 3000 1235 800 Balance 3171 635 1018 -800 Weight 66 kg 52.9 kg Lab Results: Lab Results-Last 24 Hours 08/07/22 08/07/22 08/07/22 Range/Units 07:28 10:00 10:44 Sodium 140 (137-145) mmol/L Potassium 3.0 L* D (3.5-5.1) mmol/L Chloride 121 H (98-107) mmol/L Carbon Dioxide 17 L (22-30) mmol/L Anion Gap 4.2 L (5-15) MEQ/L BUN 6 L (7-17) mg/dL Creatinine 0.67 (0.52-1.04) mg/dL Estimated GFR > 60.0 ML/MIN Glucose 112 H (74-106) mg/dL POC Glucometer 105 (74 to 106) mg/dL Calcium 7.4 L (8.4-10.2) mg/dL Phosphorus 3.5 (2.5-4.5) mg/dL Magnesium 2.2 (1.6-2.3) mg/dL Total Bilirubin 0.10 L (0.2-1.3) mg/dL AST 13 L (14-36) U/L ALT 12 (0-35) U/L Alkaline Phosphatase 56 (38-126) U/L Serum Total Protein 6.1 L (6.3-8.2) g/dL Albumin 2.1 L (3.5-5.0) g/dL 08/07/22 08/07/22 08/07/22 Range/Units 11:55 16:31 21:52 Sodium (137-145) mmol/L Potassium (3.5-5.1) mmol/L Chloride (98-107) mmol/L Carbon Dioxide (22-30) mmol/L Anion Gap (5-15) MEQ/L BUN (7-17) mg/dL Creatinine (0.52-1.04) mg/dL Estimated GFR ML/MIN Glucose (74-106) mg/dL POC Glucometer 69 L 88 89 (74 to 106) mg/dL Calcium (8.4-10.2) mg/dL Phosphorus (2.5-4.5) mg/dL Magnesium (1.6-2.3) mg/dL Total Bilirubin (0.2-1.3) mg/dL AST (14-36) U/L ALT (0-35) U/L Alkaline Phosphatase (38-126) U/L Serum Total Protein (6.3-8.2) g/dL Albumin (3.5-5.0) g/dL 08/08/22 08/08/22 Range/Units 03:24 03:24 Sodium 141 (137-145) mmol/L Potassium 3.7 D (3.5-5.1) mmol/L Chloride 120 H (98-107) mmol/L Carbon Dioxide 19 L (22-30) mmol/L Anion Gap 5.2 (5-15) MEQ/L BUN 6 L (7-17) mg/dL Creatinine 0.74 (0.52-1.04) mg/dL Estimated GFR > 60.0 ML/MIN Glucose 105 (74-106) mg/dL POC Glucometer (74 to 106) mg/dL Calcium 7.4 L (8.4-10.2) mg/dL Phosphorus (2.5-4.5) mg/dL Magnesium 2.0 (1.6-2.3) mg/dL Total Bilirubin 0.10 L (0.2-1.3) mg/dL AST 15 (14-36) U/L ALT 13 (0-35) U/L Alkaline Phosphatase 53 (38-126) U/L Serum Total Protein 6.0 L (6.3-8.2) g/dL Albumin 2.1 L (3.5-5.0) g/dL Radiology Exams: Radiology Procedures Category Date Time Status CHEST 1 VIEW (PORTABLE) Stat Exams 08/07/22 17:35 Taken CHEST 1 VIEW (PORTABLE) Urgent Exams 08/07/22 11:17 Completed FISTULOGRAM Urgent Exams 08/08/22 Ordered Multi-Disciplinary Progress Notes: Multi-Disciplinary Progress Notes 08/07/22 14:53 Pharmacy Note by Jona Marrufo Potassium 3.0 today. Got 40mEq K-rider. Chloride still high at 121. Will change to Potassium Phosphate for next tpn bag. Mag now normal. Will decrease to 3 grams per bag. Initialized on 08/07/22 14:53 - END OF NOTE
--- NOTE | 2022-08-08 08:39 | XRAY ---
Indication: PICC line placement. Comparison: Taken earlier in the day. Portable chest demonstrates PICC line replacement with new right arm PICC line tip in the SVC. Remaining heart and lungs again normal.
[2022-08-08] MEDS: Levofloxacin 500MG/100ML D5W 500 MG/100 ML BAG IV SCH (09:14)
[2022-08-08] MEDS: HYDROMORPHONE 30 MG/30 ML-NS IV PRN (09:34)
[2022-08-08] MEDS: Compazine 10 MG/2 ML IV PRN (10:15)
[2022-08-08] MEDS: Ativan 2 MG/1 ML VIAL IV PRN ×2 (10:15→23:47)
[2022-08-08] MEDS ORDERED: DEX IV SCH ×5 (14:00)
[2022-08-08] MEDS ORDERED: LYTES IV SCH ×5 (14:00)
[2022-08-08] MEDS ORDERED: [UNRECOGNIZED DRUG - OTHER] IV SCH ×5 (14:00)
[2022-08-08] MEDS: Zinc Gluconate 50 MG PO SCH (17:22)
[2022-08-08] MEDS: Vitamin B-6 (Pyridoxine) 100 MG PO SCH (17:23)
[2022-08-08] MEDS: Zofran 4 MG/2 ML VIAL IV PRN (23:48)
[2022-08-09] MEDS: Sodium Chloride 0.9% 1000 ML 1,000 ML IV SCH (02:52)
[2022-08-09 06:25] LABS: Hematocrit 25.8 % (35-47); Hemoglobin 7.8 g/dL (12.0-16.0); Mean Cell Volume 89.3 fL (78-100); Mean Corpuscular Hgb Concent. 30.2 g/dL (32-36); Platelet Count 200 x10^3/uL (150-450); Red Blood Count 2.89 x10^6/uL (4.1-5.4); Red Cell Distribution Width 15.4 % (11.5-14.0); White Blood Count 6.8 x10^3/uL (4.0-10.5)
[2022-08-09 06:44] LABS: ALBUMIN 2.2 g/dL (3.5-5.0); ALKALINE PHOSPHATASE 59 U/L (38-126); ANION GAP 7.1 MEQ/L (5-15); BLOOD UREA NITROGEN 7 mg/dL (7-17); CHLORIDE 116 mmol/L (98-107); Calcium 7.4 mg/dL (8.4-10.2); Carbon Dioxide 18 mmol/L (22-30); EST GLOMERULAR FILTRATION RATE > 60.0 ML/MIN; Glucose 93 mg/dL (74-106); Potassium 4.2 mmol/L (3.5-5.1); SGOT/AST 58 U/L (14-36); SGPT/ALT 17 U/L (0-35); SODIUM 137 mmol/L (137-145)
[2022-08-09] MEDS: Levofloxacin 500MG/100ML D5W 500 MG/100 ML BAG IV SCH (10:33)
[2022-08-09] MEDS: Zinc Gluconate 50 MG PO SCH (12:11)
[2022-08-09] MEDS: Vitamin B-6 (Pyridoxine) 100 MG PO SCH (12:11)
[2022-08-09] MEDS: Compazine 10 MG/2 ML IV PRN ×2 (12:14→23:30)
--- NOTE | 2022-08-09 13:11 | PCM.NOTE ---
Date and Time: 08/09/22 1308 Subjective Assessment: pain is not well controlled in her abdomen per patient. she is receiving TPN, very complicated medical case, continues to wait for a bed from Objective Exam General Appearance: no apparent distress Cardiovascular Exam: regular rate/rhythm, normal heart sounds Gastrointestinal/Abdomen Exam: tenderness (dressing intact, not removed. no guarding or rebound, documented fistula noted), No mass OBJECTIVE DATA Vital Signs: Vital Signs - 24 hr Temp Pulse Resp BP Pulse Ox 08/09/22 11:51 97.1 F 98 H 22 101/63 99 08/09/22 07:22 97 F 88 20 109/64 98 08/09/22 05:34 18 99 08/09/22 03:44 97.1 F 107 H 16 114/76 99 08/09/22 01:34 18 95 08/08/22 23:47 18 08/08/22 23:40 97.3 F 82 17 116/69 100 08/08/22 21:34 18 08/08/22 20:00 97.3 F 88 17 101/74 98 08/08/22 15:49 97.9 F 86 16 103/63 98 Pain Assessment - Last Documented Pain Intensity 2 Pain Scale Used 0-10 Pain Scale Intake and Output: Intake & Output 08/07/22 08/08/22 08/09/22 08/10/22 11:59 11:59 11:59 11:59 Intake Total 2253 4726 Output Total 1235 800 Balance 1018 -800 4726 Weight 66.1 kg 69.9 kg Lab Results: Lab Results-Last 24 Hours 08/08/22 08/08/22 08/09/22 Range/Units 16:27 21:03 06:15 WBC 6.8 (4.0-10.5) x10^3/uL RBC 2.89 L (4.1-5.4) x10^6/uL Hgb 7.8 L (12.0-16.0) g/dL Hct 25.8 L (35-47) % MCV 89.3 (78-100) fL MCH 27.0 (26-32) pg MCHC 30.2 L (32-36) g/dL RDW 15.4 H (11.5-14.0) % Plt Count 200 (150-450) x10^3/uL MPV 9.0 (7.5-11.0) fL Sodium (137-145) mmol/L Potassium (3.5-5.1) mmol/L Chloride (98-107) mmol/L Carbon Dioxide (22-30) mmol/L Anion Gap (5-15) MEQ/L BUN (7-17) mg/dL Creatinine (0.52-1.04) mg/dL Estimated GFR ML/MIN Glucose (74-106) mg/dL POC Glucometer 103 74 (74 to 106) mg/dL Calcium (8.4-10.2) mg/dL Magnesium (1.6-2.3) mg/dL Total Bilirubin (0.2-1.3) mg/dL AST (14-36) U/L ALT (0-35) U/L Alkaline Phosphatase (38-126) U/L Serum Total Protein (6.3-8.2) g/dL Albumin (3.5-5.0) g/dL 08/09/22 08/09/22 08/09/22 Range/Units 06:15 07:07 11:28 WBC (4.0-10.5) x10^3/uL RBC (4.1-5.4) x10^6/uL Hgb (12.0-16.0) g/dL Hct (35-47) % MCV (78-100) fL MCH (26-32) pg MCHC (32-36) g/dL RDW (11.5-14.0) % Plt Count (150-450) x10^3/uL MPV (7.5-11.0) fL Sodium 137 (137-145) mmol/L Potassium 4.2 (3.5-5.1) mmol/L Chloride 116 H (98-107) mmol/L Carbon Dioxide 18 L (22-30) mmol/L Anion Gap 7.1 (5-15) MEQ/L BUN 7 (7-17) mg/dL Creatinine 0.70 (0.52-1.04) mg/dL Estimated GFR > 60.0 ML/MIN Glucose 93 (74-106) mg/dL POC Glucometer 86 103 (74 to 106) mg/dL Calcium 7.4 L (8.4-10.2) mg/dL Magnesium 2.0 (1.6-2.3) mg/dL Total Bilirubin 0.20 (0.2-1.3) mg/dL AST 58 H (14-36) U/L ALT 17 (0-35) U/L Alkaline Phosphatase 59 (38-126) U/L Serum Total Protein 6.0 L (6.3-8.2) g/dL Albumin 2.2 L (3.5-5.0) g/dL Radiology Exams: Radiology Procedures Category Date Time Status CHEST 1 VIEW (PORTABLE) Stat Exams 08/07/22 17:35 Completed Assessment/Plan (1) Post op infection Current Visit: Yes Status: Acute Code(s): T81.40XA - INFECTION FOLLOWING A PROCEDURE, UNSPECIFIED, INIT (2) Cutaneous fistula Current Visit: No Status: Acute Assessment & Plan: awaiting bed at , needs higher level of care. continue levaquin, no other changes Code(s): L98.8 - OTH DISRD OF THE SKIN AND SUBCUTANEOUS TISSUE (3) Exacerbation of Crohn's disease Current Visit: Yes Status: Acute Code(s): K50.90 - CROHN'S DISEASE, UNSPECIFIED, WITHOUT COMPLICATIONS
[2022-08-09] MEDS ORDERED: [UNRECOGNIZED DRUG - OTHER] IV SCH ×3 (16:00)
[2022-08-09] MEDS ORDERED: DEX IV SCH ×3 (16:00)
[2022-08-09] MEDS ORDERED: LYTES IV SCH ×3 (16:00)
[2022-08-09] MEDS: Zofran 4 MG/2 ML VIAL IV PRN (17:02)
[2022-08-09] MEDS: Ativan 2 MG/1 ML VIAL IV PRN (23:31)
[2022-08-10] MEDS: Sodium Chloride 0.9% 1000 ML 1,000 ML IV SCH ×2 (02:50→23:59)
[2022-08-10 05:51] LABS: Basophil (Absolute #) 0.02 x10^3/uL (0-0.4); Eosinophil % 2.5 % (0.00-5.0); Eosinophil (Absolute #) 0.17 x10^3/uL (0-0.5); Hematocrit 25.9 % (35-47); Hemoglobin 7.6 g/dL (12.0-16.0); Lymphocyte (Absolute #) 1.36 x10^3/uL (1.0-4.6); Lymphocytes % 20.4 % (24.0-44.0); Mean Cell Volume 92.2 fL (78-100); Mean Corpuscular Hgb Concent. 29.3 g/dL (32-36); Mean Platelet Volume 9.7 fL (7.5-11.0); Monocyte (Absolute #) 0.88 x10^3/uL (0.0-1.3); Monocytes % 13.2 % (0.0-12.0); Platelet Count 213 x10^3/uL (150-450); Red Blood Count 2.81 x10^6/uL (4.1-5.4); Red Cell Distribution Width 15.6 % (11.5-14.0); White Blood Count 6.7 x10^3/uL (4.0-10.5)
[2022-08-10 06:09] LABS: ALBUMIN 2.3 g/dL (3.5-5.0); ALKALINE PHOSPHATASE 71 U/L (38-126); ANION GAP 6.7 MEQ/L (5-15); BLOOD UREA NITROGEN 10 mg/dL (7-17); CHLORIDE 117 mmol/L (98-107); Calcium 7.8 mg/dL (8.4-10.2); Carbon Dioxide 21 mmol/L (22-30); EST GLOMERULAR FILTRATION RATE > 60.0 ML/MIN; Glucose 114 mg/dL (74-106); MAGNESIUM 1.6 mg/dL (1.6-2.3); Potassium 4.1 mmol/L (3.5-5.1); SGOT/AST 26 U/L (14-36); SGPT/ALT 24 U/L (0-35); SODIUM 141 mmol/L (137-145); Total Protein 6.4 g/dL (6.3-8.2)
--- NOTE | 2022-08-10 08:56 | PCM.NOTE ---
Date and Time: 08/10/22 0854 Subjective Assessment: status is unchanged, continues to have drainage from fistula, her pain is better controlled. having difficulty with IV access Objective Exam General Appearance: no apparent distress Neurologic Exam: alert Respiratory Exam: normal breath sounds Cardiovascular Exam: regular rate/rhythm, normal heart sounds Gastrointestinal/Abdomen Exam: other (dressing c/d/i), No guarding, No rebound Extremity Exam: normal inspection, normal range of motion OBJECTIVE DATA Vital Signs: Vital Signs - 24 hr Temp Pulse Resp BP Pulse Ox 08/10/22 07:29 97.1 F 79 20 98/56 99 08/10/22 03:52 98.0 F 83 16 93/54 98 08/09/22 23:29 97.4 F 91 H 16 102/48 100 08/09/22 21:34 16 96 08/09/22 19:19 97.1 F 101 H 16 107/55 100 08/09/22 16:00 97.3 F 88 17 108/70 08/09/22 13:34 100 08/09/22 11:51 97.1 F 98 H 22 101/63 99 Pain Assessment - Last Documented Pain Intensity 10 Pain Scale Used 0-10 Pain Scale Intake and Output: Intake & Output 08/07/22 08/08/22 08/09/22 08/10/22 11:59 11:59 11:59 11:59 Intake Total 2253 4726 3707 Output Total 1235 800 55 Balance 1018 -800 4726 3652 Weight 66.1 kg 69.9 kg Lab Results: Lab Results-Last 24 Hours 08/09/22 08/09/22 08/10/22 Range/Units 11:28 21:29 05:20 WBC (4.0-10.5) x10^3/uL RBC (4.1-5.4) x10^6/uL Hgb (12.0-16.0) g/dL Hct (35-47) % MCV (78-100) fL MCH (26-32) pg MCHC (32-36) g/dL RDW (11.5-14.0) % Plt Count (150-450) x10^3/uL MPV (7.5-11.0) fL Gran % (36.0-66.0) % Immature Gran % (Auto) (0.00-0.4) % Nucleat RBC Rel Count (0.00-0.1) % Eos # (Auto) (0-0.5) x10^3/uL Immature Gran # (Auto) (0.00-0.03) x10^3u/L Absolute Lymphs (auto) (1.0-4.6) x10^3/uL Absolute Monos (auto) (0.0-1.3) x10^3/uL Absolute Nucleated RBC (0.00-0.01) x10^3u/L Lymphocytes % (24.0-44.0) % Monocytes % (0.0-12.0) % Eosinophils % (0.00-5.0) % Basophils % (0.0-0.4) % Absolute Granulocytes (1.4-6.9) x10^3/uL Basophils # (0-0.4) x10^3/uL Sodium 141 (137-145) mmol/L Potassium 4.1 (3.5-5.1) mmol/L Chloride 117 H (98-107) mmol/L Carbon Dioxide 21 L (22-30) mmol/L Anion Gap 6.7 (5-15) MEQ/L BUN 10 (7-17) mg/dL Creatinine 0.80 (0.52-1.04) mg/dL Estimated GFR > 60.0 ML/MIN Glucose 114 H (74-106) mg/dL POC Glucometer 103 91 (74 to 106) mg/dL Calcium 7.8 L (8.4-10.2) mg/dL Magnesium 1.6 (1.6-2.3) mg/dL Total Bilirubin 0.20 (0.2-1.3) mg/dL AST 26 (14-36) U/L ALT 24 (0-35) U/L Alkaline Phosphatase 71 (38-126) U/L Serum Total Protein 6.4 (6.3-8.2) g/dL Albumin 2.3 L (3.5-5.0) g/dL 08/10/22 08/10/22 Range/Units 05:20 06:47 WBC 6.7 (4.0-10.5) x10^3/uL RBC 2.81 L (4.1-5.4) x10^6/uL Hgb 7.6 L (12.0-16.0) g/dL Hct 25.9 L (35-47) % MCV 92.2 (78-100) fL MCH 27.0 (26-32) pg MCHC 29.3 L (32-36) g/dL RDW 15.6 H (11.5-14.0) % Plt Count 213 (150-450) x10^3/uL MPV 9.7 (7.5-11.0) fL Gran % 63.0 (36.0-66.0) % Immature Gran % (Auto) 0.6 H (0.00-0.4) % Nucleat RBC Rel Count 0.0 (0.00-0.1) % Eos # (Auto) 0.17 (0-0.5) x10^3/uL Immature Gran # (Auto) 0.04 H (0.00-0.03) x10^3u/L Absolute Lymphs (auto) 1.36 (1.0-4.6) x10^3/uL Absolute Monos (auto) 0.88 (0.0-1.3) x10^3/uL Absolute Nucleated RBC 0.00 (0.00-0.01) x10^3u/L Lymphocytes % 20.4 L (24.0-44.0) % Monocytes % 13.2 H (0.0-12.0) % Eosinophils % 2.5 (0.00-5.0) % Basophils % 0.3 (0.0-0.4) % Absolute Granulocytes 4.20 (1.4-6.9) x10^3/uL Basophils # 0.02 (0-0.4) x10^3/uL Sodium (137-145) mmol/L Potassium (3.5-5.1) mmol/L Chloride (98-107) mmol/L Carbon Dioxide (22-30) mmol/L Anion Gap (5-15) MEQ/L BUN (7-17) mg/dL Creatinine (0.52-1.04) mg/dL Estimated GFR ML/MIN Glucose (74-106) mg/dL POC Glucometer 87 (74 to 106) mg/dL Calcium (8.4-10.2) mg/dL Magnesium (1.6-2.3) mg/dL Total Bilirubin (0.2-1.3) mg/dL AST (14-36) U/L ALT (0-35) U/L Alkaline Phosphatase (38-126) U/L Serum Total Protein (6.3-8.2) g/dL Albumin (3.5-5.0) g/dL Assessment/Plan (1) Post op infection Current Visit: Yes Status: Acute Assessment & Plan: continue levaquin, patient is a complicated surgical complication done at and she requires a higher level of care and surgical expertise there as soon as possible, she has been waiting on a bed for days. Code(s): T81.40XA - INFECTION FOLLOWING A PROCEDURE, UNSPECIFIED, INIT (2) Cutaneous fistula Current Visit: No Status: Acute Code(s): L98.8 - OTH DISRD OF THE SKIN AND SUBCUTANEOUS TISSUE (3) Exacerbation of Crohn's disease Current Visit: Yes Status: Acute Code(s): K50.90 - CROHN'S DISEASE, UNSPECIFIED, WITHOUT COMPLICATIONS
[2022-08-10] MEDS: Vitamin B-6 (Pyridoxine) 100 MG PO SCH (11:19)
[2022-08-10] MEDS: Compazine 10 MG/2 ML IV PRN ×4 (11:19→23:59)
[2022-08-10] MEDS: Levofloxacin 500MG/100ML D5W 500 MG/100 ML BAG IV SCH (11:20)
[2022-08-10] MEDS: Zinc Gluconate 50 MG PO SCH (11:20)
[2022-08-10] MEDS ORDERED: LYTES IV SCH ×5 (12:45)
[2022-08-10] MEDS ORDERED: DEX IV SCH ×5 (12:45)
[2022-08-10] MEDS ORDERED: [UNRECOGNIZED DRUG - OTHER] IV SCH ×5 (12:45)
[2022-08-10] MEDS: DEX IV SCH ×5 (15:58)
[2022-08-10] MEDS: LYTES IV SCH ×5 (15:58)
[2022-08-10] MEDS: [UNRECOGNIZED DRUG - OTHER] IV SCH ×5 (15:58)
--- NOTE | 2022-08-10 19:52 | XRAY ---
Indication: Central line placement. Comparison: August 07, 2022 Portable chest demonstrates PICC line replacement with a new right jugular central venous access catheter with tip projecting over the cavoatrial junction. No pneumothorax. Remaining heart, lungs, and bony thorax normal. Comment: Preliminary interpretation made by C. No critical discrepancy.
[2022-08-10] MEDS: Ativan 2 MG/1 ML VIAL IV PRN (23:58)
[2022-08-11 05:24] LABS: Hematocrit 26.4 % (35-47); Hemoglobin 7.7 g/dL (12.0-16.0); Mean Cell Volume 93.3 fL (78-100); Mean Corpuscular Hemoglobin 27.2 pg (26-32); Mean Corpuscular Hgb Concent. 29.2 g/dL (32-36); Mean Platelet Volume 9.6 fL (7.5-11.0); Platelet Count 206 x10^3/uL (150-450); Red Blood Count 2.83 x10^6/uL (4.1-5.4); Red Cell Distribution Width 15.5 % (11.5-14.0); White Blood Count 8.7 x10^3/uL (4.0-10.5)
[2022-08-11] MEDS: Ativan 2 MG/1 ML VIAL IV PRN ×2 (05:32→23:30)
[2022-08-11] MEDS: Compazine 10 MG/2 ML IV PRN ×3 (05:32→23:29)
[2022-08-11 05:56] LABS: ALBUMIN 2.5 g/dL (3.5-5.0); ALKALINE PHOSPHATASE 89 U/L (38-126); ANION GAP 9.8 MEQ/L (5-15); BLOOD UREA NITROGEN 10 mg/dL (7-17); CHLORIDE 112 mmol/L (98-107); Calcium 7.8 mg/dL (8.4-10.2); Carbon Dioxide 19 mmol/L (22-30); Creatinine 1 0.71 mg/dL (0.52-1.04); EST GLOMERULAR FILTRATION RATE > 60.0 ML/MIN; Glucose 110 mg/dL (74-106); MAGNESIUM 1.8 mg/dL (1.6-2.3); Potassium 4.1 mmol/L (3.5-5.1); SGOT/AST 28 U/L (14-36); SGPT/ALT 28 U/L (0-35); SODIUM 136 mmol/L (137-145); Total Protein 6.6 g/dL (6.3-8.2)
[2022-08-11] MEDS: HYDROMORPHONE 30 MG/30 ML-NS IV PRN (05:56)
[2022-08-11] MEDS ORDERED: Oxycontin 10 MG ER PO PRN (09:17)
[2022-08-11] MEDS: Hydromorphone 1 mg/ml Injection IV PRN ×2 (10:03→18:30)
[2022-08-11] MEDS: Levofloxacin 500MG/100ML D5W 500 MG/100 ML BAG IV SCH (10:04)
[2022-08-11] MEDS: Vitamin B-6 (Pyridoxine) 100 MG PO SCH (10:04)
[2022-08-11] MEDS: Zinc Gluconate 50 MG PO SCH (10:06)
--- NOTE | 2022-08-11 10:36 | PCM.NOTE ---
Date and Time: 08/11/22 1030 Subjective Assessment: Patient states weak and tired. Has kept some food down. Yesterday ate a ham and cheese sandwich but vomited shortly after,staff says that is about all she ate yesterday. Hgb 7.6 yesterday ,hemocult of stool negative today.Agrees to blood transfusion. IV accsess difficulties ongoing problem. Has a central line right neck access triple lumen placed over the weekend. Objective Exam General Appearance: lethargy ( pale with dark periorbital circles furrow in brow.) Neurologic Exam: oriented x 3, cooperative (decreased affect) Neck Exam: other (cenral line right neck) Respiratory Exam: normal breath sounds Cardiovascular Exam: tachycardia (regular) Gastrointestinal/Abdomen Exam: tenderness (2+/4 right upper amd mid, 1+/4 LLQ), distention Extremity Exam: normal inspection (calves soft) OBJECTIVE DATA Vital Signs: Vital Signs - 24 hr Temp Pulse Resp BP Pulse Ox 08/11/22 07:55 97.9 F 104 H 16 110/57 99 08/11/22 05:56 16 95 08/11/22 04:00 98.0 F 97 H 15 103/57 99 08/10/22 23:47 97.8 F 102 H 18 113/68 99 08/10/22 19:33 98.4 F 98 H 16 99/59 98 08/10/22 16:00 97.3 F 106 H 16 113/55 99 08/10/22 11:25 97.5 F 108 H 18 108/64 96 Pain Assessment - Last Documented Pain Intensity 10 Pain Scale Used 0-10 Pain Scale Intake and Output: Intake & Output 08/08/22 08/09/22 08/10/22 08/11/22 11:59 11:59 11:59 11:59 Intake Total 4709 4769 1691 Output Total 800 55 Balance -800 7350 0482 1691 Weight 66.1 kg 69.9 kg 68.5 kg 68.3 kg Lab Results: Lab Results-Last 24 Hours 08/10/22 08/11/22 08/11/22 Range/Units 21:28 00:29 05:15 WBC 8.7 (4.0-10.5) x10^3/uL RBC 2.83 L (4.1-5.4) x10^6/uL Hgb 7.7 L (12.0-16.0) g/dL Hct 26.4 L (35-47) % MCV 93.3 (78-100) fL MCH 27.2 (26-32) pg MCHC 29.2 L (32-36) g/dL RDW 15.5 H (11.5-14.0) % Plt Count 206 (150-450) x10^3/uL MPV 9.6 (7.5-11.0) fL Sodium (137-145) mmol/L Potassium (3.5-5.1) mmol/L Chloride (98-107) mmol/L Carbon Dioxide (22-30) mmol/L Anion Gap (5-15) MEQ/L BUN (7-17) mg/dL Creatinine (0.52-1.04) mg/dL Estimated GFR ML/MIN Glucose (74-106) mg/dL POC Glucometer 90 (74 to 106) mg/dL Calcium (8.4-10.2) mg/dL Magnesium (1.6-2.3) mg/dL Total Bilirubin (0.2-1.3) mg/dL AST (14-36) U/L ALT (0-35) U/L Alkaline Phosphatase (38-126) U/L Serum Total Protein (6.3-8.2) g/dL Albumin (3.5-5.0) g/dL Stool Occult Blood NEGATIVE (NEGATIVE) 08/11/22 08/11/22 Range/Units 05:15 07:51 WBC (4.0-10.5) x10^3/uL RBC (4.1-5.4) x10^6/uL Hgb (12.0-16.0) g/dL Hct (35-47) % MCV (78-100) fL MCH (26-32) pg MCHC (32-36) g/dL RDW (11.5-14.0) % Plt Count (150-450) x10^3/uL MPV (7.5-11.0) fL Sodium 136 L (137-145) mmol/L Potassium 4.1 (3.5-5.1) mmol/L Chloride 112 H (98-107) mmol/L Carbon Dioxide 19 L (22-30) mmol/L Anion Gap 9.8 (5-15) MEQ/L BUN 10 (7-17) mg/dL Creatinine 0.71 (0.52-1.04) mg/dL Estimated GFR > 60.0 ML/MIN Glucose 110 H (74-106) mg/dL POC Glucometer 96 (74 to 106) mg/dL Calcium 7.8 L (8.4-10.2) mg/dL Magnesium 1.8 (1.6-2.3) mg/dL Total Bilirubin 0.20 (0.2-1.3) mg/dL AST 28 (14-36) U/L ALT 28 (0-35) U/L Alkaline Phosphatase 89 (38-126) U/L Serum Total Protein 6.6 (6.3-8.2) g/dL Albumin 2.5 L (3.5-5.0) g/dL Stool Occult Blood (NEGATIVE) Radiology Exams: Radiology Procedures Category Date Time Status CHEST 1 VIEW (PORTABLE) Stat Exams 08/10/22 13:03 Completed Assessment/Plan (1) Malnutrition Current Visit: Yes Status: Chronic Qualifiers: Malnutrition type: protein-calorie malnutrition Assessment & Plan: chronic N/V ongoing. Loosing fluids through abd fistulas-ongoing but with some improvement. Code(s): E46 - UNSPECIFIED PROTEIN-CALORIE MALNUTRITION (2) Anemia Current Visit: Yes Status: Acute Assessment & Plan: due to chronic illness,malabsorption - chronic worsening Code(s): D64.9 - ANEMIA, UNSPECIFIED (3) Cutaneous fistula Current Visit: No Status: Acute Assessment & Plan: awaiting trasnfer to [facility] where patient's surgeon can eval and manage. Code(s): L98.8 - OTH DISRD OF THE SKIN AND SUBCUTANEOUS TISSUE
[2022-08-11 12:17] LABS: ABO TYPING A; Antibody Screen NEGATIVE (NEGATIVE); RH TYPING POSITIVE
[2022-08-11 12:18] LABS: CROSS MATCH (PRBC) COMPATIBLE (COMPATIBLE)
[2022-08-11] MEDS: Zofran 4 MG/2 ML VIAL IV PRN (13:18)
[2022-08-11] MEDS: Oxy-IR 5 MG PO PRN ×2 (14:53→21:49)
[2022-08-11] MEDS: LYTES IV SCH ×5 (16:30)
[2022-08-11] MEDS: [UNRECOGNIZED DRUG - OTHER] IV SCH ×5 (16:30)
[2022-08-11] MEDS: DEX IV SCH ×5 (16:30)
[2022-08-12] MEDS: Hydromorphone 1 mg/ml Injection IV PRN (00:30)
[2022-08-12] MEDS: Sodium Chloride 0.9% 1000 ML 1,000 ML IV SCH ×2 (00:32→22:14)
[2022-08-12] MEDS: Vitamin B-6 (Pyridoxine) 100 MG PO SCH (09:34)
[2022-08-12] MEDS: Oxy-IR 5 MG PO PRN ×3 (09:34→23:17)
[2022-08-12] MEDS: Levofloxacin 500MG/100ML D5W 500 MG/100 ML BAG IV SCH (09:34)
[2022-08-12] MEDS: Zinc Gluconate 50 MG PO SCH (09:35)
[2022-08-12 09:36] LABS: Absolute Neutrophil Ct (ANC) 4.84 x10^3/uL (1.4-6.9); Basophil (Absolute #) 0.02 x10^3/uL (0-0.4); Eosinophil % 1.6 % (0.00-5.0); Eosinophil (Absolute #) 0.12 x10^3/uL (0-0.5); Hematocrit 29.5 % (35-47); Lymphocyte (Absolute #) 1.27 x10^3/uL (1.0-4.6); Lymphocytes % 16.8 % (24.0-44.0); Mean Corpuscular Hemoglobin 27.8 pg (26-32); Mean Corpuscular Hgb Concent. 30.5 g/dL (32-36); Mean Platelet Volume 9.6 fL (7.5-11.0); Monocyte (Absolute #) 1.25 x10^3/uL (0.0-1.3); Monocytes % 16.6 % (0.0-12.0); Neutrophil % 64.2 % (36.0-66.0); Platelet Count 193 x10^3/uL (150-450); Red Blood Count 3.24 x10^6/uL (4.1-5.4); Red Cell Distribution Width 15.6 % (11.5-14.0); White Blood Count 7.5 x10^3/uL (4.0-10.5)
[2022-08-12 10:16] LABS: ALBUMIN 2.7 g/dL (3.5-5.0); ALKALINE PHOSPHATASE 98 U/L (38-126); ANION GAP 10.5 MEQ/L (5-15); BLOOD UREA NITROGEN 9 mg/dL (7-17); CHLORIDE 109 mmol/L (98-107); Calcium 8.2 mg/dL (8.4-10.2); Carbon Dioxide 22 mmol/L (22-30); Creatinine 1 0.68 mg/dL (0.52-1.04); EST GLOMERULAR FILTRATION RATE > 60.0 ML/MIN; Glucose 91 mg/dL (74-106); Potassium 4.6 mmol/L (3.5-5.1); SGOT/AST 25 U/L (14-36); SGPT/ALT 29 U/L (0-35); SODIUM 137 mmol/L (137-145); Total Protein 7.1 g/dL (6.3-8.2)
[2022-08-12] MEDS: Zofran 4 MG/2 ML VIAL IV PRN ×2 (10:35→18:11)
[2022-08-12] MEDS ORDERED: [UNRECOGNIZED DRUG - NUTRITION] IV SCH ×3 (14:00)
[2022-08-12] MEDS: Ativan 2 MG/1 ML VIAL IV PRN (23:17)
[2022-08-12] MEDS: Compazine 10 MG/2 ML IV PRN (23:17)
[2022-08-13 07:29] VITALS: O2SAT 95
--- NOTE | 2022-08-13 08:54 | CONS ---
CONSULT DATE: 08/12/2022 HISTORY: This patient has seen for Dr. Joey Mike in the past for some abdominal fistulas. She is a well-known patient with multiple medical problems and now she is admitted here. A patient of Dr. David apparently. She has been in the hospital here for a while. She had four surgeries, had partial bowel resection for fistulas. PAST MEDICAL HISTORY: Anxiety, bipolar depression, reflux, uterine cancer, Crohn's disease, migraines, seizures in the past. PAST SURGICAL HISTORY: Cholecystectomy. Hysterectomy. D&C in the past. Extensive abdominal surgeries at in the past. HOME MEDICATIONS: Cyanocobalamin, vitamin D2, oxycodone, potassium chloride, pyridoxine, vitamin A, gluconate. ALLERGIES: ACETAMINOPHEN. HYDROCODONE. MORPHINE. TYSABRI. LATEX. TOMATO. ONION. FAMILY HISTORY: Negative in regards to this problem. SOCIAL HISTORY: No smoking or alcohol abuse. REVIEW OF SYSTEMS: Fourteen systems reviewed. She does have a central line in place that she is getting TPN at this time. PHYSICAL EXAMINATION: GENERAL: A chronically ill female. HEENT: Sclera nonicteric. NECK: She has a right-sided looks like a central line. CHEST: Equal excursion, nonlabored breathing. EXTREMITIES: No edema. NEURO: Alert. PSYCH: Appropriate mood and affect. IMPRESSION: She is in need of long-term venous access for outpatient treatment. Port was requested. They reported that she was not NPO tonight but definitely could not be done during the middle of the night. Again, I was seeing this patient for Dr. Joey Mike to begin with. Could check with Dr. Girish Mike who will be here operating on and have him schedule her in if she is stays. Otherwise if she does go she could get a PICC line. She needs to go home earlier and consider elective port down the road but consider keeping the PICC line until she follows up with her surgeon, Dr. David. General risk of bleeding, infection, thrombosis, pneumothorax but not limited to. Right now she is saying she wants to consider getting a PICC line and go home versus waiting until . If she stays Dr. Mike will see her today or tomorrow for port on if she stays otherwise she can get a PICC and be released tomorrow.
[2022-08-13] MEDS: Levofloxacin 500MG/100ML D5W 500 MG/100 ML BAG IV SCH (09:34)
[2022-08-13] MEDS: Oxy-IR 5 MG PO PRN ×2 (10:44→15:19)
[2022-08-13] MEDS: Zinc Gluconate 50 MG PO SCH (10:45)
[2022-08-13] MEDS: Compazine 10 MG/2 ML IV PRN (10:45)
[2022-08-13] MEDS: VITAMIN D2 PO SCH (10:46)
[2022-08-13] MEDS: Vitamin B-6 (Pyridoxine) 100 MG PO SCH (10:46)
[2022-08-13 11:28] VITALS: BP 99/62; PULSE 99
--- NOTE | 2022-08-13 12:25 | PCM.NOTE ---
Date and Time: 08/12/22 1224 OBJECTIVE DATA Vital Signs: Vital Signs - 24 hr Temp Pulse Resp BP Pulse Ox 08/13/22 11:27 98.0 F 99 H 23 99/62 95 08/13/22 07:28 97.1 F 76 16 89/53 95 08/13/22 04:00 97.0 F 97 H 16 107/65 99 08/12/22 23:36 97.8 F 98 H 17 117/60 100 08/12/22 20:00 97.5 F 105 H 18 116/71 99 08/12/22 16:00 97.9 F 109 H 16 112/63 100 Pain Assessment - Last Documented Pain Intensity 8 Pain Scale Used 0-10 Pain Scale Intake and Output: Intake & Output 08/11/22 08/12/22 08/13/22 08/14/22 11:59 11:59 11:59 11:59 Intake Total 4980 939 1099 Output Total 1000 1200 Balance 1691 -620 5299 Weight 68.3 kg 69.2 kg 65.7 kg Lab Results: Lab Results-Last 24 Hours 08/12/22 08/13/22 Range/Units 22:07 10:33 POC Glucometer 125 H 107 H (74 to 106) mg/dL Multi-Disciplinary Progress Notes: Multi-Disciplinary Progress Notes 08/13/22 11:30 Case Management Note by Misa Davis [facility] MADE AWARE OF PLAN FOR OUTPATIENT PORT PLACEMENT TOMORROW, THEN TPN TO BEGIN. THEY ARE AGREEABLE TO PLAN. Initialized on 08/13/22 11:30 - END OF NOTE 08/12/22 14:09 Case Management Note by Misa Davis FAX SENT TO [facility] FOR ANTICIPATED HOME TPN THERAPY THROUGH PORT, IF ABLE TO BE PLACED AND D/C'D HOME TOMORROW. . Initialized on 08/12/22 14:09 - END OF NOTE 08/12/22 13:04 Case Management Note by Misa Davis DR ROUNDED, STATES SHE MAY LET PATIENT D/C HOME TODAY OR TOMORROW, BUT WOULD LIKE HER TO HAVE [facility] IN PLACE TO CHECK ON HER. PLAN TO D/C CENTRAL LINE AND POSSIBLY PLACE A PORT PER SURGERY AND LOOK INTO D/C ON TPN. PT STATES SHE IS AGREEABLE TO [facility]. WILL MAKE REFERRAL TO [facility], PER PT REQUEST. Initialized on 08/12/22 13:04 - END OF NOTE 08/12/22 12:40 Nutrition Note by Mahnaz Frederick F/u Note: TPN and bland diet con't. Po intake remains poor; pt refusing most meals; consuming 25-75% of meals she is consuming. adm weight 66kg; current weight 69.2kg. negative fluid balance. Labs 08/12=alb 2.7, hgb 9.0, hct 29.5. goals are met and ongoing. Change goal #1) to: increase po intake >=50% consistently. Will con't to monitor and f/u prn. TGILMER Tapia Initialized on 08/12/22 12:40 - END OF NOTE Assessment/Plan (1) Malnutrition Current Visit: Yes Status: Chronic Qualifiers: Malnutrition type: protein-calorie malnutrition Code(s): E46 - UNSPECIFIED PROTEIN-CALORIE MALNUTRITION (2) Anemia Current Visit: Yes Status: Acute Code(s): D64.9 - ANEMIA, UNSPECIFIED (3) Cutaneous fistula Current Visit: No Status: Acute Code(s): L98.8 - OTH DISRD OF THE SKIN AND SUBCUTANEOUS TISSUE
--- NOTE | 2022-08-13 13:25 | PCM.DCORD ---
- Discharge Disposition: HOME HEALTH SERVICE Condition: Stable Prescriptions: New Prochlorperazine Maleate 5 mg* [Compazine 5 MG] 5 mg PO TID PRN #60 tablet PRN Reason: nausea Continue Ergocalciferol (Vitamin D2) [Vitamin D2] 50,000 unit PO Q7D Oxycodone HCl 10 mg PO Q6HPRN PRN PRN Reason: Pain Cyanocobalamin 1000 Mcg/ml [Cyanocobalamin B-12 1000 MCG/ML] 1,000 mcg IJ DIRECTIONS UNKNOWN Zinc Gluconate [Zinc] 50 mg PO DAILY Vitamin A Palmitate [Vitamin A] 3,000 units DAILY Pyridoxine HCl (Vitamin B6) [Vitamin B-6] 220 mg DAILY Potassium Chloride 40 meq PO UD Additional Instructions: [facility] HAS ACCEPTED YOU FOR CARE AFTER DISCHARGE. THEY WILL CALL YOU TO SET UP YOUR FIRST APPOINTMENT. [phone]. DR Rodriguez controlled RX sent through clinic([place]) Ativan 0.5mg Qhs # 10. OxyIR 5mg q 6 #20 Follow up with: BIGG IGLESIAS I [NON-STAFF PHY W/O PRIVILEGES] - (Dr. Iglesias's office will call patient once they review the referral.) LU RODRIGUEZ DO [ACTIVE STAFF] - 08/22/22 9:00 am ()
--- NOTE | 2022-08-13 13:34 | PCM.DS ---
Discharge Summary Date of Admission: 08/04/22 14:06 Date of Discharge: 08/13/22 Admitting Physician: LU RODRIGUEZ DO Consults: Consults on Case 08/12/22 13:42 Consult Surgery ROUTINE Primary Care Provider: LEE JENKINS Allergies Allergies acetaminophen [From Tylenol] Allergy (Severe, Verified 08/13/22 14:32) Swelling of Tongue and Lips THROAT SWELL AND BREATHING DIFFICULTY hydrocodone [From Lortab] Allergy (Severe, Verified 08/13/22 14:32) Swelling of Tongue and Lips natalizumab [From Tysabri] Allergy (Severe, Verified 08/13/22 14:32) Hives onion Allergy (Severe, Verified 08/13/22 14:32) Swelling of Tongue and Lips raw onion only tomato Allergy (Severe, Verified 08/13/22 14:32) Tightness of Throat latex Allergy (Intermediate, Verified 08/13/22 14:32) Hives morphine Adverse Reaction (Severe, Verified 08/13/22 14:32) makes pt mad/angry/volitle Hospital Summary - Hospital Course Hospital Course: Patient is a 42 yr old chronically ill woman with Hx endometrial cancer and end stage crohns disease admitted through ER to [facility] awaiting transfer to [facility] where she is followed by her surgeon . Patient c/o not able to eat for 2 weeks and before that was only eating small bites of rice. States was on tube feedings but line came out when she was wretching. Patient has draining abdominal fistulas that drained copious amounts of fluid during her sta y where dressings had to be changed hourly. Cultures grew Ecoli sens to Levaquin which was treated with IV levaquin. IV acsess was difficult to maintain,port to be placed after discharge for continued TPN feedings which will be needed ongoing for at least 3 months possibly longer. Beds were not available for transfer and patient will follow with her surgeon as an outpatient. Note patient is allergic to tylenol causes mouth/throat to swell and was referred to pain management . I will do bridge Rx for Oxycontin. Anemia HGB 7 was treated with 1 unit PRBC, stool was heme negative.Patient is discharged to the care of her and .[facility] with supply TPN after approval by Mj ariza. - Vitals & Intake/Output Vital Signs: Vital Signs Temperature 98.0 F 08/13/22 11:27 Pulse Rate 99 H 08/13/22 11:27 Respiratory Rate 23 08/13/22 11:27 Blood Pressure 99/62 08/13/22 11:27 O2 Sat by Pulse Oximetry 95 08/13/22 11:27 Intake & Output: Intake & Output 08/11/22 08/12/22 08/13/22 08/14/22 11:59 11:59 11:59 11:59 Intake Total 8425 690 2702 Output Total 1000 1200 Balance 1691 -141 5299 Weight 68.3 kg 69.2 kg 65.7 kg - Lab Result Diagrams: 08/12/22 09:30 08/12/22 09:30 Lab Results-Last 24 Hrs: Lab Results-Last 24 Hours 08/12/22 08/13/22 Range/Units 22:07 10:33 POC Glucometer 125 H 107 H (74 to 106) mg/dL Micro Results-Entire Visit: Microbiology 08/06/22 10:55 Blood Culture Gram Stain - Final Blood Not Reportable Blood Culture - Final NO GROWTH 08/06/22 09:53 Blood Culture Gram Stain - Final Blood Not Reportable Blood Culture - Final NO GROWTH 08/03/22 00:12 Blood Culture Gram Stain - Final Blood Not Reportable Blood Culture - Final NO GROWTH 08/04/22 13:58 Wound Culture - Final Abdomen - Right Upper Quadrant Escherichia Coli Escherichia Coli#2 Accuchecks Date 08/13/22 Time 10:35 Discharge Exam General Appearance: no apparent distress, other (more energetic today after transfusion PRBC yesterday) Neurologic Exam: alert, oriented x 3 Neck Exam: other (IV right neck) Respiratory Exam: normal breath sounds Cardiovascular Exam: tachycardia (regular) Gastrointestinal/Abdomen Exam: tenderness (periumbilical right >left), distention, guarding, other (drainage from fistulas has decreased significantly) Final Diagnosis/Problem List - Final Discharge Diagnosis/Problem (1) Malnutrition due to starvation Status: Acute Assessment & Plan: due to end stage crohns dz, TPN will need continued 3+ months or longer Code(s): E46 - UNSPECIFIED PROTEIN-CALORIE MALNUTRITION; T73.0XXS - STARVATION, SEQUELA (2) Cutaneous fistula Status: Chronic Assessment & Plan: improved with nutrition and antibiotic specific for current Ecoli fistula drainage- Levaquin IV during hospital stay Code(s): L98.8 - OTH DISRD OF THE SKIN AND SUBCUTANEOUS TISSUE (3) Anemia Status: Chronic Assessment & Plan: transfusion 1 unit PRBC Code(s): D64.9 - ANEMIA, UNSPECIFIED (4) Post op infection Status: Chronic Code(s): T81.40XA - INFECTION FOLLOWING A PROCEDURE, UNSPECIFIED, INIT (5) Crohn disease Status: Chronic Assessment & Plan: multiple bowel resection surgeries (awaiting records) Crohns eneritis and co litis Code(s): K50.90 - CROHN'S DISEASE, UNSPECIFIED, WITHOUT COMPLICATIONS (6) Nausea & vomiting Status: Chronic Assessment & Plan: Rx Compazine for home Code(s): R11.2 - NAUSEA WITH VOMITING, UNSPECIFIED - Discharge Disposition: HOME HEALTH SERVICE Condition: Stable Prescriptions: New Prochlorperazine Maleate 5 mg* [Compazine 5 MG] 5 mg PO TID PRN #60 tablet PRN Reason: nausea Continue Ergocalciferol (Vitamin D2) [Vitamin D2] 50,000 unit PO Q7D Oxycodone HCl 10 mg PO Q6HPRN PRN PRN Reason: Pain Cyanocobalamin 1000 Mcg/ml [Cyanocobalamin B-12 1000 MCG/ML] 1,000 mcg IJ DIRECTIONS UNKNOWN Zinc Gluconate [Zinc] 50 mg PO DAILY Vitamin A Palmitate [Vitamin A] 3,000 units DAILY Pyridoxine HCl (Vitamin B6) [Vitamin B-6] 220 mg DAILY Instructions: Wound Care (DC), Nutrition Support Additional Instructions: [facility] HAS ACCEPTED YOU FOR CARE AFTER DISCHARGE. THEY WILL CALL YOU TO SET UP YOUR FIRST APPOINTMENT. [phone]. DR Rodriguez controlled RX sent through clinic([place]) MARIA ALEJANDRAAlison FOR HS. OxyIR 5mg q 6 #20 COME IN TOMORROW 08/14/22 FOR PORT PLACEMENT. NOTHING TO EAT OR DRINK AFTER MIDNIGHT TONIGHT. OUT PATIENT SURGERY WILL CALL YOU TODAY WITH A TIME TO ARRIVE TO THE HOSPITAL. Follow up with: BIGG RAYO I [NON-STAFF PHY W/O PRIVILEGES] - (Dr. Rayo's office will call patient once they review the referral.) LU RODRIGUEZ DO [ACTIVE STAFF] - 08/22/22 9:00 am () Forms: Discharge Instructions
== END 2022-08-13 15:20 | disposition home health service (06) | DRG 386 ==
LOC: ED 22:55 → MED SURG 08-04 06:13 → OBSVTOIN 08-04 14:06
PROVIDERS: ADMIT Family Medicine; ATTEND Family Medicine
DX: K50.90 Crohn's disease, unspecified, without complications (principal); E46 Unspecified protein-calorie malnutrition; T81.40XA Infection following a procedure, unspecified, initial encounter; D64.9 Anemia, unspecified; L98.8 Other specified disorders of the skin and subcutaneous tissue; W18.30XA Fall on same level, unspecified, initial encounter; M25.562 Pain in left knee; Z79.899 Other long term (current) drug therapy; Z20.828 Contact with and (suspected) exposure to other viral communicable diseases; Z85.42 Personal history of malignant neoplasm of other parts of uterus
CPT/HCPCS: 00532; 0241U; 36000; 36415; 36430; 36556; 71045; 73700; 74177; 76942; 80053; 82040; 82805; 82947; 83036; 83521; 83605; 83690; 83735; 84100; 84132; 85025; 85027; 85610; 85652; 86140; 86850; 86900; 86901; 86922; 87040; 87070; 87077; 87186; 94762; 96360; 96365; 96367; 96374; 96375; 99285; 99291; G0328; P9016; 82274; J1170; J1200; J1956; J2060; J2270; J2405; J2543; J3475; J3480; A9270-GY; J3370

== ENCOUNTER 2022-08-14 10:36 | Day surgery (SDC) | payer MEDICARE ==
[~2022-08-14 10:36] MED LIST: Sensorcaine 0.25% 10 ML ONE; XYLOCAINE 1% HCL 20 ML MDV ONE
[2022-08-14] MEDS ORDERED: CEFAZOLIN 2 GM-D5W BAG** 2 GM/50 ML ML IV SCH (11:00)
[2022-08-14] MEDS ORDERED: Lactated Ringers 1,000 ML IV SCH (11:00)
[2022-08-14] MEDS ORDERED: SUBLIMAZE 100 MCG/2 ML ONE (13:44)
[2022-08-14] MEDS ORDERED: Versed 2 MG/2 ML Injection ONE ×2 (13:44→13:45)
[2022-08-14] MEDS ORDERED: DIPRIVAN 200 MG/20 ML IV ONE (13:44)
[2022-08-14] MEDS ORDERED: Xylocaine-Mpf 2% 5 Ml Vial ONE (13:44)
[2022-08-14] MEDS ORDERED: Quelicin Fliptop 200 MG/10 ML ONE (13:44)
[2022-08-14] MEDS ORDERED: Sensorcaine 0.25% 10 ML ONE (13:45)
[2022-08-14] MEDS ORDERED: Pre-Attached Lta Kit TP ONE (13:47)
[2022-08-14] MEDS ORDERED: PHENYLEPHRINE HCL ONE (14:05)
[2022-08-14] MEDS ORDERED: Lactated Ringers 1,000 ML IV ONE (14:08)
[2022-08-14] MEDS ORDERED: Compazine 10 MG/2 ML ONE (14:59)
--- NOTE | 2022-08-14 15:05 | XRAY ---
Indication: Port placement. Intraoperative fluoroscopy provided for 3 seconds. Single digital spot image submitted for interpretation demonstrates partially visualized left Port-A-Cath with the tip projecting over the SVC. Correlate with intraoperative findings/report.
[2022-08-14] MEDS ORDERED: Sodium Chloride 0.9% 10 ML FLUSH Syringe PICC PRN (15:50)
[2022-08-14 16:10] VITALS: BP 110/69; PULSE 116; O2SAT 96
--- NOTE | 2022-08-15 07:47 | OP ---
SURGERY DATE/TIME: 08/14/2022 8412 PREOPERATIVE DIAGNOSIS: The patient has inadequate access for IV medicine. 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 POSTOPERATIVE DIAGNOSIS: The patient has inadequate access for IV medicine. 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 PROCEDURE: Tunnel port with fluoroscopic C-arm guidance. SURGEON: Girish Mike M.D. ANESTHESIA: MAC. COMPLICATIONS: None. CONDITION: Stable. INDICATION: A patient requiring access. DESCRIPTION OF PROCEDURE: She was taken to surgery. Routine prep and drape. General anesthetic was provided. Venipuncture left subclavian. Catheter was tunneled. Port was fashioned. Secured at 25 cm. Good aspiration of low pressure venous blood. Flushed with heparinized saline. The tip was in the superior vena cava atrial junction. No pneumothorax. Ready to use. The patient tolerated the procedure satisfactorily. Findings discussed with the family in the waiting room.
== END 2022-08-14 16:15 | disposition home or self-care (01) ==
LOC: SDC 10:36
PROVIDERS: ATTEND Surgery
DX: K63.2 Fistula of intestine (principal)
CPT/HCPCS: 00532; 36571; 76937; 76942; 77001; C1788; J0330; J0690; J1642; J2250; J2370; J2704; J3010

== ENCOUNTER 2022-10-29 12:47 | Observation (INO) | payer MEDICARE ==
[2022-10-29] MEDS ORDERED: Sodium Chloride 0.9% 1000 ML 1,000 ML IV STA (13:25)
--- NOTE | 2022-10-29 13:25 | ERPHSYRPT ---
- History of Present Illness Time Seen by Provider: 10/29/22 13:25 Historian: patient Exam Limitations: no limitations Physician History: This a 42-year-old female who is known to our facility because of chronic recurring and worsening at times abdominal pain. She is a patient of Dr. Rodriguez. 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 Patient has not been eating or drinking well the last several days. Apparently, her surgeon was concerned. Patient states her abdominal pain is no different than it usually is. Patient was contacted by her primary care physician and told to go to the emergency department. She was unaware of why she needed to be here. Dr. Posey's office was contacted and apparently there is a concern of the patient's nutritional status and possibly the need to admit her for total parenteral nutrition. Patient has a history of uterine cancer and fibroid tumors within her uterus and underwent a hysterectomy as well in the past. Patient states that she would prefer not being admitted in the hospital and have home TPN therapy. She states that she knows how to run this. She also stated that her home health nurse company told her that instead of visiting her once a week, if she had home TPN therapy they would see her multiple times a week and obtain lab results as well. Patient is smiling and laughing in no distress. Timing/Duration: other (Chronic intermittent) Activities at Onset: none Abdominal Pain Onset Location: generalized abdomen Severity of Pain-Max: moderate (Chronic) Severity of Pain-Current: moderate (Chronic) Modifying Factors: Improves With: vomiting (Intermittent chronically) Associated Symptoms: nausea, vomiting (Intermittent chronically) Previous symptoms: same symptoms as today, recently seen, recently treated Allergies/Adverse Reactions: acetaminophen [From Tylenol] Allergy (Severe, Verified 10/29/22 13:24) Swelling of Tongue and Lips THROAT SWELL AND BREATHING DIFFICULTY hydrocodone [From Lortab] Allergy (Severe, Verified 10/29/22 13:24) Swelling of Tongue and Lips natalizumab [From Tysabri] Allergy (Severe, Verified 10/29/22 13:24) Hives onion Allergy (Severe, Verified 10/29/22 13:24) Swelling of Tongue and Lips raw onion only tomato Allergy (Severe, Verified 10/29/22 13:24) Tightness of Throat latex Allergy (Intermediate, Verified 10/29/22 13:24) Hives morphine Adverse Reaction (Severe, Verified 10/29/22 13:24) makes pt mad/angry/volitle Home Medications: Cyanocobalamin 1000 Mcg/ml [Cyanocobalamin B-12 1000 MCG/ML] 1,000 mcg IJ DIRECTIONS UNKNOWN 05/14/22 [History] Ergocalciferol (Vitamin D2) [Vitamin D2] 50,000 unit PO Q7D 05/14/22 [History] Pyridoxine HCl (Vitamin B6) [Vitamin B-6] 220 mg DAILY 06/21/22 [History] Vitamin A Palmitate [Vitamin A] 3,000 units DAILY 06/21/22 [History] Zinc Gluconate [Zinc] 50 mg PO DAILY 06/21/22 [History] Hx Tetanus, Diphtheria Vaccination/Date Given: Yes Hx Influenza Vaccination/Date Given: No Hx Pneumococcal Vaccination/Date Given: No Travel Risk - International Travel Have you traveled outside of the country in past 3 weeks: No - Coronavirus Screening Are you exhibiting any of the following symptoms?: No Close contact with a COVID-19 positive Pt in past 14-21 Days: No - Vaccine Status Have you recieved a Covid-19 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 - Review of Systems Constitutional: Weakness Eyes: No Symptoms (Chronic) Ears, Nose, & Throat: No Symptoms Respiratory: No Symptoms Cardiac: No Symptoms Abdominal/Gastrointestinal: Abdominal Pain (Chronic generalized diffuse), Nausea (Chronic intermittent), Vomiting Genitourinary Symptoms: No Symptoms (Chronic intermittent) Musculoskeletal: No Symptoms Skin: No Symptoms Neurological: No Symptoms Psychological: No Symptoms Endocrine: No Symptoms Hematologic/Lymphatic: No Symptoms Immunological/Allergic: No Symptoms All Other Systems: Reviewed and Negative - Past Medical History Pertinent Past Medical History: Yes Neurological History: Migraines, Seizures ENT History: No Pertinent History Cardiac History: Deep Vein Thrombosis Respiratory History: Pulmonary Embolism Endocrine Medical History: No Pertinent History Musculoskeletal History: No Pertinent History GI Medical History: Crohns Disease, GERD, Pancreatitis, Ulcer History: Renal Disease Psycho-Social History: Anxiety, Bipolar, Depression Female Reproductive Disorders: Fibroids, Uterine Cancer Other Medical History: unknown source of acute kidney failure 04/28/2022. 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 - Past Surgical History Past Surgical History: Yes Neuro Surgical History: No Pertinent History Cardiac: No Pertinent History Respiratory: No Pertinent History Gastrointestinal: Cholecystectomy, Other Genitourinary: No Pertinent History Musculoskeletal: Orthopedic Surgery Female Surgical History: Hysterectomy, Dilation & Curettage, Other Other Surgical History: intestine resect 4-5 times, pins R foot, multiple port placement - Social History Smoking Status: Never smoker Exposure to second hand smoke: No Drug Use: none Patient Lives Alone: No - Nursing Vital Signs Nursing Vital Signs: Initial Vital Signs Temperature 97.1 F 10/29/22 13:21 Pulse Rate 87 10/29/22 13:21 Respiratory Rate 18 10/29/22 13:21 Blood Pressure 84/61 10/29/22 13:21 O2 Sat by Pulse Oximetry 99 10/29/22 13:21 Pain Scale Pain Intensity 10 - Physical Exam General Appearance: no apparent distress, alert, anxiety Eye Exam: PERRL/EOMI, eyes nml inspection Ears, Nose, Throat Exam: normal ENT inspection, dry mucous membranes Neck Exam: normal inspection, non-tender, supple, full range of motion Respiratory Exam: normal breath sounds, lungs clear, airway intact, No chest tenderness, No respiratory distress Cardiovascular Exam: regular rate/rhythm, normal heart sounds, normal peripheral pulses Gastrointestinal/Abdomen Exam: soft, normal bowel sounds, tenderness (Generalized), other (Ostomy bag with contents of intestinal cutaneous fistula fluid) Pelvic Exam: not done Rectal Exam: not done Back Exam: normal inspection, normal range of motion, No CVA tenderness, No vertebral tenderness Extremity Exam: normal inspection, normal range of motion, pelvis stable Neurologic Exam: alert, oriented x 3, cooperative, transitional care liaison II-XII nml as tested, normal mood/affect, nml cerebellar function, nml station & gait, sensation nml Skin Exam: pale Lymphatic Exam: No adenopathy SpO2 Interpretation: normal SpO2: 99 O2 Delivery: Room Air Ordered Tests: Active Orders 24 hr Category Date Time Status IV Insertion STAT Care 10/29/22 13:25 Active AMYLASE Stat Lab 10/29/22 13:55 Completed CBC W DIFF Stat Lab 10/29/22 13:55 Completed CMP Stat Lab 10/29/22 13:55 Completed LIPASE Stat Lab 10/29/22 13:55 Completed Lactic Acid Stat Lab 10/29/22 13:25 Completed MAGNESIUM Stat Lab 10/29/22 13:55 Completed UA W/RFX UR CULTURE Stat Lab 10/29/22 14:23 Ordered Transfer Order Routine Transfer 10/29/22 Ordered Medication Summary Discontinued Medications Generic Name Dose Route Start Last Admin Trade Name Yasmany PRN Reason Stop Dose Admin Hydromorphone HCl 1 mg 10/29/22 14:23 10/29/22 14:50 Hydromorphone 1 Mg/1ml Inj 1 Mg/Ml Syringe IV 10/29/22 14:24 1 mg STAT ONE Administration Hydromorphone HCl Confirm 10/29/22 14:45 Hydromorphone 1 Mg/1ml Inj 1 Mg/Ml Syringe Administered 10/29/22 14:46 Dose 1 mg .ROUTE .STK-MED ONE Sodium Chloride 1,000 mls @ 999 mls/hr 10/29/22 13:25 10/29/22 15:23 Sodium Chloride 0.9% 1000 Ml IV 10/29/22 14:25 Infused .Q1H1M STA Infusion Sodium Chloride Confirm 10/29/22 14:16 Sodium Chloride 0.9% 1000 Ml Administered 10/29/22 14:17 Dose 1,000 mls @ ud .ROUTE .STK-MED ONE Ondansetron HCl 4 mg 10/29/22 14:23 10/29/22 14:47 Ondansetron Hcl 4 Mg/2 Ml Vial IV 10/29/22 14:24 4 mg STAT ONE Administration Ondansetron HCl Confirm 10/29/22 14:45 Ondansetron Hcl 4 Mg/2 Ml Vial Administered 10/29/22 14:46 Dose 4 mg .ROUTE .STK-MED ONE Lab/Rad Data: Laboratory Result Diagrams 10/29/22 13:55 10/29/22 13:55 Laboratory Results 10/29/22 10/29/22 10/29/22 Range/Units 13:55 13:55 13:55 WBC 7.4 (4.0-10.5) x10^3/uL RBC 3.18 L (4.1-5.4) x10^6/uL Hgb 8.8 L (12.0-16.0) g/dL Hct 28.8 L (35-47) % MCV 90.6 (78-100) fL MCH 27.7 (26-32) pg MCHC 30.6 L (32-36) g/dL RDW 14.7 H (11.5-14.0) % Plt Count 299 (150-450) x10^3/uL MPV 9.2 (7.5-11.0) fL Gran % 58.8 (36.0-66.0) % Immature Gran % (Auto) 0.3 (0.00-0.4) % Nucleat RBC Rel Count 0.0 (0.00-0.1) % Eos # (Auto) 0.04 (0-0.5) x10^3/uL Immature Gran # (Auto) 0.02 (0.00-0.03) x10^3u/L Absolute Lymphs (auto) 2.10 (1.0-4.6) x10^3/uL Absolute Monos (auto) 0.89 (0.0-1.3) x10^3/uL Absolute Nucleated RBC 0.00 (0.00-0.01) x10^3u/L Lymphocytes % 28.3 (24.0-44.0) % Monocytes % 12.0 (0.0-12.0) % Eosinophils % 0.5 (0.00-5.0) % Basophils % 0.1 (0.0-0.4) % Absolute Granulocytes 4.37 (1.4-6.9) x10^3/uL Basophils # 0.01 (0-0.4) x10^3/uL Sodium 136 L (137-145) mmol/L Potassium 3.4 L (3.5-5.1) mmol/L Chloride 117 H (98-107) mmol/L Carbon Dioxide 17 L (22-30) mmol/L Anion Gap 5.8 (5-15) MEQ/L BUN 4 L (7-17) mg/dL Creatinine 0.78 (0.52-1.04) mg/dL Estimated GFR > 60.0 ML/MIN Glucose 91 (74-106) mg/dL Lactic Acid (0.4-2.0) Calcium 7.4 L (8.4-10.2) mg/dL Magnesium 1.5 L (1.6-2.3) mg/dL Total Bilirubin 0.30 (0.2-1.3) mg/dL AST 47 H (14-36) U/L ALT 56 H (0-35) U/L Alkaline Phosphatase 162 H (38-126) U/L Serum Total Protein 6.6 (6.3-8.2) g/dL Albumin 2.0 L (3.5-5.0) g/dL Amylase 40 (30-110) U/L Lipase 22 L (23-300) U/L Influenza Type A Ag NEGATIVE (NEGATIVE) Influenza Type B Ag NEGATIVE (NEGATIVE) RSV (PCR) NEGATIVE (Negative) SARS-CoV-2 (PCR) NEGATIVE (NEGATIVE) 10/29/22 Range/Units 13:25 WBC (4.0-10.5) x10^3/uL RBC (4.1-5.4) x10^6/uL Hgb (12.0-16.0) g/dL Hct (35-47) % MCV (78-100) fL MCH (26-32) pg MCHC (32-36) g/dL RDW (11.5-14.0) % Plt Count (150-450) x10^3/uL MPV (7.5-11.0) fL Gran % (36.0-66.0) % Immature Gran % (Auto) (0.00-0.4) % Nucleat RBC Rel Count (0.00-0.1) % Eos # (Auto) (0-0.5) x10^3/uL Immature Gran # (Auto) (0.00-0.03) x10^3u/L Absolute Lymphs (auto) (1.0-4.6) x10^3/uL Absolute Monos (auto) (0.0-1.3) x10^3/uL Absolute Nucleated RBC (0.00-0.01) x10^3u/L Lymphocytes % (24.0-44.0) % Monocytes % (0.0-12.0) % Eosinophils % (0.00-5.0) % Basophils % (0.0-0.4) % Absolute Granulocytes (1.4-6.9) x10^3/uL Basophils # (0-0.4) x10^3/uL Sodium (137-145) mmol/L Potassium (3.5-5.1) mmol/L Chloride (98-107) mmol/L Carbon Dioxide (22-30) mmol/L Anion Gap (5-15) MEQ/L BUN (7-17) mg/dL Creatinine (0.52-1.04) mg/dL Estimated GFR ML/MIN Glucose (74-106) mg/dL Lactic Acid 1.4 (0.4-2.0) Calcium (8.4-10.2) mg/dL Magnesium (1.6-2.3) mg/dL Total Bilirubin (0.2-1.3) mg/dL AST (14-36) U/L ALT (0-35) U/L Alkaline Phosphatase (38-126) U/L Serum Total Protein (6.3-8.2) g/dL Albumin (3.5-5.0) g/dL Amylase (30-110) U/L Lipase (23-300) U/L Influenza Type A Ag (NEGATIVE) Influenza Type B Ag (NEGATIVE) RSV (PCR) (Negative) SARS-CoV-2 (PCR) (NEGATIVE) - Progress Progress: improved, pain not gone completely, re-examined Progress Note: 10/29/22 15:23 Medical decision making: I reviewed old labs on this patient as well as old records from [facility]. I also obtained additional information from Dr. Posey, the patient's primary care physician. Dr. Posey received a phone call from the patient's GI specialist and there is concerned about this patient's nutritional status. Rightly so, the patient has chronic anemia with a lower hemoglobin today than 6 months ago at 8.8. She also has an albumin level of 2.0. 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 I spoke with Dr. Posey and the plan is to admit the patient into the hospital and provide her with total parenteral nutrition and repeat labs. 10/29/22 15:26 I spoke with [facility] and after reviewing today's labs they will be formulating total parenteral nutrition for this patient. Discussed with : Yina Counseled pt/family regarding: lab results, diagnosis - Departure Departure Disposition: In-patient Admission Clinical Impression: Chronic anemia, Hypoalbuminemia, 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 Condition: Stable Critical Care Time: No Referrals: LEE JENKINS MD [Primary Care Provider] - Follow up/PCP as directed
[2022-10-29 14:03] LABS: Absolute Neutrophil Ct (ANC) 4.37 x10^3/uL (1.4-6.9); BASOPHIL % 0.1 % (0.0-0.4); Basophil (Absolute #) 0.01 x10^3/uL (0-0.4); Eosinophil % 0.5 % (0.00-5.0); Eosinophil (Absolute #) 0.04 x10^3/uL (0-0.5); Hematocrit 28.8 % (35-47); Hemoglobin 8.8 g/dL (12.0-16.0); IMMATURE GRAN # 0.02 x10^3u/L (0.00-0.03); IMMATURE GRAN % 0.3 % (0.00-0.4); Lymphocytes % 28.3 % (24.0-44.0); Mean Cell Volume 90.6 fL (78-100); Mean Corpuscular Hemoglobin 27.7 pg (26-32); Mean Corpuscular Hgb Concent. 30.6 g/dL (32-36); Mean Platelet Volume 9.2 fL (7.5-11.0); Monocyte (Absolute #) 0.89 x10^3/uL (0.0-1.3); Neutrophil % 58.8 % (36.0-66.0); Platelet Count 299 x10^3/uL (150-450); Red Blood Count 3.18 x10^6/uL (4.1-5.4); Red Cell Distribution Width 14.7 % (11.5-14.0); White Blood Count 7.4 x10^3/uL (4.0-10.5)
[2022-10-29] MEDS ORDERED: Sodium Chloride 0.9% 1000 ML 1,000 ML ONE (14:16)
[2022-10-29 14:22] LABS: ALKALINE PHOSPHATASE 162 U/L (38-126); AMYLASE 40 U/L (30-110); ANION GAP 5.8 MEQ/L (5-15); BLOOD UREA NITROGEN 4 mg/dL (7-17); CHLORIDE 117 mmol/L (98-107); Calcium 7.4 mg/dL (8.4-10.2); Carbon Dioxide 17 mmol/L (22-30); Creatinine 1 0.78 mg/dL (0.52-1.04); EST GLOMERULAR FILTRATION RATE > 60.0 ML/MIN; Glucose 91 mg/dL (74-106); LIPASE 22 U/L (23-300); MAGNESIUM 1.5 mg/dL (1.6-2.3); Potassium 3.4 mmol/L (3.5-5.1); SGOT/AST 47 U/L (14-36); SGPT/ALT 56 U/L (0-35); SODIUM 136 mmol/L (137-145); Total Protein 6.6 g/dL (6.3-8.2)
[2022-10-29] MEDS ORDERED: Zofran 4 MG/2 ML VIAL IV ONE (14:23)
[2022-10-29] MEDS ORDERED: Hydromorphone 1 mg/ml Injection IV ONE (14:23)
[2022-10-29 14:42] LABS: INFLUENZA A NEGATIVE (NEGATIVE); INFLUENZA B NEGATIVE (NEGATIVE); RESPIRATORY SYNCTIAL VIRUS NEGATIVE (Negative); SARS-CoV-2 Xpert Express NEGATIVE (NEGATIVE)
[2022-10-29] MEDS ORDERED: Zofran 4 MG/2 ML VIAL ONE (14:45)
[2022-10-29] MEDS ORDERED: Hydromorphone 1 mg/ml Injection ONE (14:45)
[2022-10-29 15:52] LABS: ADD URINE CULTURE? NO (NO); Appearance Clear (Clear); Bacteria None Seen /HPF (None Seen); Bilirubin Negative (Negative); Blood Negative (Negative); Epithelial Cells None Seen /HPF (None Seen); Glucose, Urine Negative (Negative); Ketones Negative (Negative); Leukocyte Esterase Negative (Negative); Nitrite Negative (Negative); Ph 5.5 (4.6-8.0); Protein,Urine Dip Trace (Negative); RBC 0-2 /HPF (0-5); Urobilinogen 0.2 mg/dL (0.2); WBC 0-2 /HPF (0-5)
[2022-10-29] MEDS ORDERED: Zofran 4 MG/2 ML VIAL IV PRN (17:03)
[2022-10-29] MEDS ORDERED: Sodium Chloride 0.9% 1000 ML 1,000 ML IV SCH (17:03)
[2022-10-29] MEDS: [UNRECOGNIZED DRUG - NUTRITION] IV SCH ×5 (17:21)
[2022-10-29] MEDS: PROTONIX 40 MG IV IV SCH (17:24)
[2022-10-29] MEDS ORDERED: MAGNESIUM SULF 2 G/50 ML BAG 2 GM/50 ML PIGGYBACK IV ONE (18:00)
[2022-10-29] MEDS: Hydromorphone 1 mg/ml Injection IV PRN (20:19)
[2022-10-30] MEDS: Hydromorphone 1 mg/ml Injection IV PRN ×6 (00:19→23:15)
[2022-10-30] MEDS: Zofran 4 MG/2 ML VIAL IV PRN ×3 (05:26→19:17)
[2022-10-30 05:45] LABS: Absolute Neutrophil Ct (ANC) 2.74 x10^3/uL (1.4-6.9); BASOPHIL % 0.2 % (0.0-0.4); Basophil (Absolute #) 0.01 x10^3/uL (0-0.4); Eosinophil % 0.6 % (0.00-5.0); Eosinophil (Absolute #) 0.03 x10^3/uL (0-0.5); Hematocrit 25.6 % (35-47); Hemoglobin 7.8 g/dL (12.0-16.0); IMMATURE GRAN # 0.03 x10^3u/L (0.00-0.03); IMMATURE GRAN % 0.6 % (0.00-0.4); Lymphocyte (Absolute #) 1.52 x10^3/uL (1.0-4.6); Lymphocytes % 28.9 % (24.0-44.0); Mean Cell Volume 89.8 fL (78-100); Mean Corpuscular Hemoglobin 27.4 pg (26-32); Mean Corpuscular Hgb Concent. 30.5 g/dL (32-36); Mean Platelet Volume 9.4 fL (7.5-11.0); Monocyte (Absolute #) 0.93 x10^3/uL (0.0-1.3); Monocytes % 17.7 % (0.0-12.0); Platelet Count 254 x10^3/uL (150-450); Red Blood Count 2.85 x10^6/uL (4.1-5.4); Red Cell Distribution Width 14.9 % (11.5-14.0); White Blood Count 5.3 x10^3/uL (4.0-10.5)
[2022-10-30 06:17] LABS: ALBUMIN 1.8 g/dL (3.5-5.0); ALKALINE PHOSPHATASE 134 U/L (38-126); ANION GAP 5.8 MEQ/L (5-15); BLOOD UREA NITROGEN 4 mg/dL (7-17); CHLORIDE 119 mmol/L (98-107); Calcium 7.2 mg/dL (8.4-10.2); Carbon Dioxide 20 mmol/L (22-30); Creatinine 1 0.93 mg/dL (0.52-1.04); EST GLOMERULAR FILTRATION RATE > 60.0 ML/MIN; Glucose 92 mg/dL (74-106); Potassium 3.6 mmol/L (3.5-5.1); SGOT/AST 34 U/L (14-36); SGPT/ALT 46 U/L (0-35); SODIUM 141 mmol/L (137-145); Total Protein 5.9 g/dL (6.3-8.2)
[2022-10-30] MEDS: PROTONIX 40 MG IV IV SCH (09:43)
[2022-10-30] MEDS ORDERED: PHARMACY DOSING REQUEST MC SCH (10:00)
[2022-10-30] MEDS ORDERED: Cyanocobalamin B-12 1000 MCG/ML IJ SCH (10:15)
[2022-10-30] MEDS ORDERED: VITAMIN D2 PO PRN (10:15)
[2022-10-30] MEDS ORDERED: MEDICATION INTERVENTION MC SCH (10:45)
[2022-10-30 10:54] LABS: ABO TYPING A; Antibody Screen NEGATIVE (NEGATIVE); RH TYPING POSITIVE
[2022-10-30 10:55] LABS: Antibody Screen NEGATIVE (NEGATIVE)
[2022-10-30 10:58] LABS: CROSS MATCH (PRBC) COMPATIBLE (COMPATIBLE)
[2022-10-30] MEDS ORDERED: Sodium Chloride 0.9% 1000 ML 1,000 ML IV SCH (11:00)
[2022-10-30] MEDS: Vitamin B-6 (Pyridoxine) 100 MG PO SCH (12:01)
[2022-10-30] MEDS: Zinc Gluconate 50 MG PO SCH (12:01)
[2022-10-30] MEDS: [UNRECOGNIZED DRUG - NUTRITION] IV SCH ×5 (16:45)
[2022-10-30 16:51] LABS: Hematocrit 31.5 % (35-47)
[2022-10-30 16:53] LABS: Hemoglobin 9.6 g/dL (12.0-16.0)
[2022-10-30] MEDS: Compazine 10 MG/2 ML IV PRN (20:10)
[2022-10-31] MEDS: Compazine 10 MG/2 ML IV PRN ×3 (00:03→10:31)
[2022-10-31] MEDS: Hydromorphone 1 mg/ml Injection IV PRN ×2 (03:15→10:33)
[2022-10-31 06:37] LABS: Absolute Neutrophil Ct (ANC) 12.37 x10^3/uL (1.4-6.9); BASOPHIL % 0.1 % (0.0-0.4); Basophil (Absolute #) 0.02 x10^3/uL (0-0.4); Eosinophil % 0.1 % (0.00-5.0); Eosinophil (Absolute #) 0.02 x10^3/uL (0-0.5); Hematocrit 34.8 % (35-47); Hemoglobin 10.8 g/dL (12.0-16.0); IMMATURE GRAN # 0.12 x10^3u/L (0.00-0.03); IMMATURE GRAN % 0.8 % (0.00-0.4); Lymphocyte (Absolute #) 1.78 x10^3/uL (1.0-4.6); Lymphocytes % 11.2 % (24.0-44.0); Mean Cell Volume 90.6 fL (78-100); Mean Corpuscular Hemoglobin 28.1 pg (26-32); Mean Platelet Volume 9.2 fL (7.5-11.0); Monocyte (Absolute #) 1.57 x10^3/uL (0.0-1.3); Monocytes % 9.9 % (0.0-12.0); Neutrophil % 77.9 % (36.0-66.0); Platelet Count 274 x10^3/uL (150-450); Red Blood Count 3.84 x10^6/uL (4.1-5.4); Red Cell Distribution Width 14.7 % (11.5-14.0); White Blood Count 15.9 x10^3/uL (4.0-10.5)
[2022-10-31 06:55] LABS: ALKALINE PHOSPHATASE 119 U/L (38-126); ANION GAP 3.2 MEQ/L (5-15); BLOOD UREA NITROGEN 8 mg/dL (7-17); CHLORIDE 114 mmol/L (98-107); Calcium 7.3 mg/dL (8.4-10.2); Carbon Dioxide 22 mmol/L (22-30); Creatinine 1 0.68 mg/dL (0.52-1.04); EST GLOMERULAR FILTRATION RATE > 60.0 ML/MIN; Glucose 108 mg/dL (74-106); MAGNESIUM 1.9 mg/dL (1.6-2.3); SGOT/AST 53 U/L (14-36); SGPT/ALT 45 U/L (0-35); SODIUM 134 mmol/L (137-145); Total Protein 6.5 g/dL (6.3-8.2)
[2022-10-31 07:04] LABS: Potassium 5.2 mmol/L (3.5-5.1)
[2022-10-31 09:04] LABS: Slide Review 1 YES
[2022-10-31 09:58] LABS: Absolute Neutrophil Ct (ANC) 11.74 x10^3/uL (1.4-6.9); BASOPHIL % 0.1 % (0.0-0.4); Basophil (Absolute #) 0.02 x10^3/uL (0-0.4); Eosinophil % 0.1 % (0.00-5.0); Eosinophil (Absolute #) 0.01 x10^3/uL (0-0.5); Hematocrit 35.2 % (35-47); Hemoglobin 10.9 g/dL (12.0-16.0); IMMATURE GRAN # 0.08 x10^3u/L (0.00-0.03); IMMATURE GRAN % 0.5 % (0.00-0.4); Lymphocyte (Absolute #) 1.52 x10^3/uL (1.0-4.6); Lymphocytes % 10.3 % (24.0-44.0); Mean Cell Volume 91.9 fL (78-100); Mean Corpuscular Hemoglobin 28.5 pg (26-32); Mean Platelet Volume 9.1 fL (7.5-11.0); Monocyte (Absolute #) 1.45 x10^3/uL (0.0-1.3); Monocytes % 9.8 % (0.0-12.0); Neutrophil % 79.2 % (36.0-66.0); Platelet Count 281 x10^3/uL (150-450); Red Blood Count 3.83 x10^6/uL (4.1-5.4); Red Cell Distribution Width 14.9 % (11.5-14.0); White Blood Count 14.8 x10^3/uL (4.0-10.5)
[2022-10-31] MEDS ORDERED: NON-FORMULARY ITEM (Zinc Gluconate 50 MG Tablet) PO SCH (10:00)
[2022-10-31] MEDS ORDERED: VITAMIN A PALMITATE 10000 UNIT PO SCH (10:00)
[2022-10-31 10:14] LABS: ALKALINE PHOSPHATASE 135 U/L (38-126); ANION GAP 4.5 MEQ/L (5-15); BLOOD UREA NITROGEN 8 mg/dL (7-17); CHLORIDE 113 mmol/L (98-107); Calcium 7.5 mg/dL (8.4-10.2); Carbon Dioxide 24 mmol/L (22-30); Creatinine 1 0.83 mg/dL (0.52-1.04); EST GLOMERULAR FILTRATION RATE > 60.0 ML/MIN; Glucose 127 mg/dL (74-106); Potassium 4.5 mmol/L (3.5-5.1); SGOT/AST 33 U/L (14-36); SGPT/ALT 41 U/L (0-35); SODIUM 137 mmol/L (137-145); Total Protein 6.3 g/dL (6.3-8.2)
[2022-10-31] MEDS: PROTONIX 40 MG IV IV SCH (10:37)
[2022-10-31] MEDS: Vitamin B-6 (Pyridoxine) 100 MG PO SCH (10:40)
[2022-10-31] MEDS: Zinc Gluconate 50 MG PO SCH (10:41)
[2022-10-31 12:05] VITALS: BP 124/73; PULSE 100; O2SAT 98
[2022-11-05] MEDS ORDERED: VITAMIN D2 PO SCH (10:00)
[2022-11-28] MEDS ORDERED: Cyanocobalamin B-12 1000 MCG/ML IJ SCH (10:00)
--- NOTE | 2022-12-16 23:13 | PCM.SSS ---
History of Present Illness - Chief Complaint Chief Complaint: FISTULA FROM INTESTINE TO ABDOMINAL WALL, HYPOALBUMIN, HYPO MAGNESIUM Date: 10/31/22 History of Present Illness: This a 42-year-old female who is known to our facility because of chronic recurring and worsening at times abdominal pain. She is a patient of Dr. Rodriguez. 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 Patient has not been eating or drinking well the last several days. Apparently, her surgeon was concerned. Patient states her abdominal pain is no different than it usually is. Patient was contacted by her primary care physician and told to go to the emergency department. She was unaware of why she needed to be here. Dr. Kaylin cordero's office was contacted and apparently there is a concern of the patient's nutritional status and possibly the need to admit her for total parenteral nutrition. Patient has a history of uterine cancer and fibroid tumors within her uterus and underwent a hysterectomy as well in the past. Patient states that she would prefer not being admitted in the hospital and have home TPN therapy. She states that she knows how to run this. She also stated that her home health nurse company told her that instead of visiting her once a week, if she had home TPN therapy they would see her multiple times a week and obtain lab results as well. Patient is smiling and laughing in no distress. - Review of Systems Constitutional: No Fever, No Chills Eyes: No Symptoms Ears, Nose, & Throat: No Symptoms Respiratory: No Cough, No Short Of Breath Cardiac: No Chest Pain, No Edema, No Syncope Abdominal/Gastrointestinal: Abdominal Pain, Nausea, Vomiting (chronic intermittent symptoms), No Diarrhea Genitourinary Symptoms: No Dysuria Musculoskeletal: No Back Pain, No Neck Pain Skin: No Rash Neurological: No Dizziness, No Focal Weakness, No Sensory Changes Psychological: No Symptoms Endocrine: No Symptoms Hematologic/Lymphatic: No Symptoms Immunological/Allergic: No Symptoms Medications & Allergies Home Medications: Home Medication List Cyanocobalamin 1000 Mcg/ml [Cyanocobalamin B-12 1000 MCG/ML] 1,000 mcg IJ DIRECTIONS UNKNOWN 05/14/22 [History Confirmed 10/29/22] Ergocalciferol (Vitamin D2) [Vitamin D2] 50,000 unit PO Q7D 05/14/22 [History Confirmed 10/29/22] Pyridoxine HCl (Vitamin B6) [Vitamin B-6] 220 mg DAILY 06/21/22 [History Confirmed 10/29/22] Vitamin A Palmitate [Vitamin A] 3,000 units DAILY 06/21/22 [History Confirmed 10/29/22] Zinc Gluconate [Zinc] 50 mg PO DAILY 06/21/22 [History Confirmed 10/29/22] Allergies/Adverse Reactions: Allergies Allergy/AdvReac Type Severity Reaction Status Date / Time acetaminophen [From Tylenol] Allergy Severe Swelling Verified 10/29/22 13:24 of Tongue and Lips hydrocodone [From Lortab] Allergy Severe Swelling Verified 10/29/22 13:24 of Tongue and Lips natalizumab [From Tysabri] Allergy Severe Hives Verified 10/29/22 13:24 onion Allergy Severe Swelling Verified 10/29/22 13:24 of Tongue and Lips tomato Allergy Severe Tightness Verified 10/29/22 13:24 of Throat latex Allergy Intermediate Hives Verified 10/29/22 13:24 morphine AdvReac Severe Verified 10/29/22 13:24 - Past Medical History Past Medical History: Yes Neurological History: Migraines, Seizures ENT History: No Pertinent History Cardiac History: Deep Vein Thrombosis Respiratory History: Pulmonary Embolism Endocrine Medical History: No Pertinent History Musculoskelatal History: No Pertinent History GI Medical History: Crohns Disease, GERD, Pancreatitis, Ulcer History: Renal Disease Pyscho-Social History: Anxiety, Bipolar, Depression Reproductive Disorders: Fibroids, Uterine Cancer Comment: unknown source of acute kidney failure 04/28/2022. Pt has pseudose izures brought on by high stress levels. 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 - Female History Hx Last Menstrual Period: post Are you now?: No - Past Surgical History Past Surgical History: Yes Neuro Surgical History: No Pertinent History Cardiac History: No Pertinent History Respiratory Surgery: No Pertinent History GI Surgical History: Cholecystectomy, Other Genitourinary Surgical Hx: No Pertinent History Musculskeletal Surgical Hx: Orthopedic Surgery Female Surgical History: Hysterectomy, Dilation & Curettage, Other Other Surgical History: intestine resect 4-5 times, pins R foot, multiple port placement - Social History Smoking Status: Current every day smoker Exposure to second hand smoke: No Alcohol: None Drug Use: marijuana - Physical Exam General Appearance: no apparent distress, alert Neurologic Exam: alert, oriented x 3, cooperative, normal mood/affect, nml cerebellar function, nml station & gait, sensation nml, No motor deficits Eye Exam: PERRL/EOMI, eyes nml inspection Ears, Nose, Throat Exam: normal ENT inspection, TMs normal, pharynx normal, mo ist mucous membranes Neck Exam: normal inspection, non-tender, supple, full range of motion Respiratory Exam: normal breath sounds, lungs clear, No respiratory distress Cardiovascular Exam: regular rate/rhythm, normal heart sounds, normal peripheral pulses Gastrointestinal/Abdomen Exam: soft, normal bowel sounds, tenderness (diffusely and mild), No mass Back Exam: normal inspection, normal range of motion, No CVA tenderness, No vertebral tenderness Extremity Exam: normal inspection, normal range of motion, pelvis stable Skin Exam: normal color, warm, dry, No rash Lymphatic Exam: No adenopathy Assessment/Plan (1) Malnutrition Status: Acute Code(s): E46 - UNSPECIFIED PROTEIN-CALORIE MALNUTRITION (2) Chronic anemia Status: Acute Code(s): D64.9 - ANEMIA, UNSPECIFIED (3) 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 Status: Acute Code(s): K63.2 - FISTULA OF INTESTINE (4) Hypoalbuminemia Status: Acute Code(s): E88.09 - OTH DISORDERS OF PLASMA-PROTEIN METABOLISM, NEC (5) Vomiting Status: Acute Qualifiers: Code(s): R11.10 - VOMITING, UNSPECIFIED (6) Crohn disease Status: Chronic Code(s): K50.90 - CROHN'S DISEASE, UNSPECIFIED, WITHOUT COMPLICATIONS (7) Cutaneous fistula Status: Chronic Code(s): L98.8 - OTH DISRD OF THE SKIN AND SUBCUTANEOUS TISSUE (8) Nausea & vomiting Status: Chronic Code(s): R11.2 - NAUSEA WITH VOMITING, UNSPECIFIED Hospital Summary - Hospital Course Hospital Course: pt. admitted for chronic malnutrition and need for TPN dosages and nutrional support was calculated, contact was made with her specialist in [place], pt. being stable throughout the stay was ready for discharge with TPN treatment until further evaluation with GI could be arranged. Pt. stable to discharge to home with appropriate follow-up. - Vitals & Intake/Output Vital Signs: Vital Signs Temperature 97.7 F 10/31/22 12:00 Pulse Rate 100 H 10/31/22 12:00 Respiratory Rate 16 10/31/22 12:00 Blood Pressure 124/73 10/31/22 12:00 O2 Sat by Pulse Oximetry 98 10/31/22 12:00 - Lab Result Diagrams: 10/31/22 10:00 10/31/22 10:00 - Discharge Discharge Date: 10/31/22 Disposition: HOME HEALTH SERVICE Condition: Stable Prescriptions: No Action Ergocalciferol (Vitamin D2) [Vitamin D2] 50,000 unit PO Q7D Cyanocobalamin 1000 Mcg/ml [Cyanocobalamin B-12 1000 MCG/ML] 1,000 mcg IJ DIRECTIONS UNKNOWN Zinc Gluconate [Zinc] 50 mg PO DAILY Vitamin A Palmitate [Vitamin A] 3,000 units DAILY Pyridoxine HCl (Vitamin B6) [Vitamin B-6] 220 mg DAILY Instructions: Nutrition Support Additional Instructions: YOUR TPN AND SUPPLIES ARE SCHEDULED TO BE DELIVERED TODAY AT 5PM. YOUR NURSE FROM [facility] WILL MEET YOU AT HOME AT THE SAME TIME. DR. GILLESPIE'S OFFICE IS MANAGING YOUR TPN. THEIR PHONE NUMBER IS [phone] Follow up with: LU RODRIGUEZ DO [ACTIVE STAFF] - 11/04/22 9:30 am
== END 2022-10-31 14:02 | disposition home health service (06) ==
LOC: ED 12:47 → MED SURG 17:02 → INTOOBSV 17:02
PROVIDERS: ADMIT Family Medicine; ATTEND Family Medicine
DX: E46 Unspecified protein-calorie malnutrition (principal); D64.9 Anemia, unspecified; E83.42 Hypomagnesemia; K63.2 Fistula of intestine; E88.09 Other disorders of plasma-protein metabolism, not elsewhere classified; I95.9 Hypotension, unspecified; K50.90 Crohn's disease, unspecified, without complications; R10.9 Unspecified abdominal pain; L98.8 Other specified disorders of the skin and subcutaneous tissue; R11.2 Nausea with vomiting, unspecified; Z79.899 Other long term (current) drug therapy; Z20.828 Contact with and (suspected) exposure to other viral communicable diseases; Z85.42 Personal history of malignant neoplasm of other parts of uterus; Z72.0 Tobacco use
CPT/HCPCS: 0241U; 36000; 36415; 36430; 80053; 81001; 82150; 82947; 83036; 83605; 83690; 83735; 84100; 85014; 85018; 85025; 86850; 86900; 86901; 86922; 96360; 96374; 96375; 99284; G0378; P9016; J1170; J1642; J2405; J3480; J3475

== ENCOUNTER 2023-06-24 13:03 | Emergency (ER) | payer MEDICARE ==
--- NOTE | 2023-06-24 13:17 | ERPHSYRPT ---
- History of Present Illness Time Seen by Provider: 06/24/23 13:17 Source: patient, family Exam Limitations: clinical condition Physician History: This is a 43-year-old white female patient who has history of recurrent abdominal pain and Crohn's disease. She has had multiple abdominal surgeries with multiple bowel resections in the past. 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 In approximately March 2023 she underwent another surgical procedure with bowel resection. Since that surgery, patient's abdominal wall shows another draining enterocutaneous fistula. In the last 2 to 3 days she has had decreased oral intake and has had vomiting. Patient has a Port-A-Cath in place which she receives total parenteral nutrition through. Patient has a history of uterine cancer and has had a hysterectomy in the past. She has a history of gastroesophageal reflux disease, pancreatitis, peptic ulcer disease, renal disease as well as anxiety/bipolar disorder. She presents to the emergency department mildly lethargic with a heart rate of 145 bpm and a normal sinus rhythm pattern. Her systolic blood pressure is in the high 80s. She has a low-grade fever present. Patient states that her general surgeon is Dr. David out of [facility] in [place] area. Timing/Duration: day(s), worse Severity: moderate (2 to 3 days) Modifying Factors: Improves With: nothing Associated Symptoms: nausea, vomiting, abdominal pain, fever, loss of appetite, malaise (Low-grade), weakness Allergies/Adverse Reactions: acetaminophen [From Tylenol] Allergy (Severe, Verified 10/29/22 13:24) Swelling of Tongue and Lips THROAT SWELL AND BREATHING DIFFICULTY hydrocodone [From Lortab] Allergy (Severe, Verified 10/29/22 13:24) Swelling of Tongue and Lips natalizumab [From Tysabri] Allergy (Severe, Verified 10/29/22 13:24) Hives onion Allergy (Severe, Verified 10/29/22 13:24) Swelling of Tongue and Lips raw onion only tomato Allergy (Severe, Verified 10/29/22 13:24) Tightness of Throat latex Allergy (Intermediate, Verified 10/29/22 13:24) Hives morphine Adverse Reaction (Severe, Verified 10/29/22 13:24) makes pt mad/angry/volitle Home Medications: No Reportable Medications [No Reported Medications] 06/24/23 [History] Hx Tetanus, Diphtheria Vaccination/Date Given: Yes Hx Influenza Vaccination/Date Given: No Hx Pneumococcal Vaccination/Date Given: No Travel Risk - International Travel Have you traveled outside of the country in past 3 weeks: No - Coronavirus Screening Are you exhibiting any of the following symptoms?: No Close contact with a COVID-19 positive Pt in past 14-21 Days: No - Vaccine Status Have you recieved a Covid-19 vaccination: Yes Field Contact Technician: Unknown - Vaccination Dates Dates if Unknown: UNKNOWN - Review of Systems Constitutional: Lethargy, Weakness Eyes: No Symptoms Ears, Nose, & Throat: No Symptoms Respiratory: No Symptoms Cardiac: No Symptoms Abdominal/Gastrointestinal: Abdominal Pain, Nausea, Vomiting, Appetite Changes Genitourinary Symptoms: No Symptoms Musculoskeletal: No Symptoms Skin: No Symptoms Neurological: Lethargy Psychological: No Symptoms Endocrine: No Symptoms Hematologic/Lymphatic: No Symptoms Immunological/Allergic: No Symptoms All Other Systems: Reviewed and Negative - Past Medical History Pertinent Past Medical History: Yes Neurological History: Migraines, Seizures ENT History: No Pertinent History Cardiac History: Deep Vein Thrombosis Respiratory History: Pulmonary Embolism Endocrine Medical History: No Pertinent History Musculoskeletal History: No Pertinent History GI Medical History: Crohns Disease, GERD, Pancreatitis, Ulcer History: Renal Disease Psycho-Social History: Anxiety, Bipolar, Depression Female Reproductive Disorders: Fibroids, Uterine Cancer Other Medical History: unknown source of acute kidney failure 04/28/2022. 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 - Past Surgical History Past Surgical History: Yes Neuro Surgical History: No Pertinent History Cardiac: No Pertinent History Respiratory: No Pertinent History Gastrointestinal: Cholecystectomy, Other Genitourinary: No Pertinent History Musculoskeletal: Orthopedic Surgery Female Surgical History: Hysterectomy, Dilation & Curettage, Other Other Surgical History: intestine resect 4-5 times, pins R foot, multiple port placement - Social History Smoking Status: Former smoker Exposure to second hand smoke: No Drug Use: marijuana Patient Lives Alone: No - Nursing Vital Signs Nursing Vital Signs: Initial Vital Signs Temperature 99.7 F 06/24/23 13:07 Pulse Rate 144 H 06/24/23 13:07 Respiratory Rate 32 H 06/24/23 13:07 Blood Pressure 81/50 06/24/23 13:07 O2 Sat by Pulse Oximetry 100 06/24/23 13:07 Pain Scale Pain Intensity 8 - Physical Exam General Appearance: mild distress, alert, lethargy, thin Eye Exam: PERRL/EOMI, pale conjunctivae Ears, Nose, Throat Exam: dry mucous membranes Neck Exam: normal inspection, non-tender, supple, full range of motion Respiratory Exam: normal breath sounds, lungs clear, airway intact, No chest tenderness, No respiratory distress Cardiovascular Exam: tachycardia Gastrointestinal/Abdomen Exam: tenderness (Diffuse), guarding (Diffuse to palpa tion tenderness), other (Abdominal wall enterocutaneous fistula) Pelvic Exam: not done Rectal Exam: not done Back Exam: normal inspection, normal range of motion, No CVA tenderness, No vertebral tenderness Extremity Exam: normal inspection, normal range of motion, pelvis stable Neurologic Exam: oriented x 3, cooperative, guide setter II-XII nml as tested, sensation nml, other (Lethargic but arousable and answers questions appropriately) Skin Exam: pale Lymphatic Exam: No adenopathy SpO2 Interpretation: normal O2 Delivery: Room Air - Course Nursing assessment & vital signs reviewed: Yes EKG Interpreted by Me: RATE (145), Sinus Tach, Other (The EKG generated reading says consider anterior infarct and ST elevation. I do not appreciate that on this twelve-lead EKG. I believe that the findings we are seeing is secondary to sinus tachycardia and not true ST elevation. We will control her heart rate and recheck her twelve-lead EKG.) Ordered Tests: Active Orders 24 hr Category Date Time Status EKG-ER Only STAT Care 06/24/23 13:26 Active IV Insertion STAT Care 06/24/23 13:26 Active IV Insertion-2nd Peripheral STAT Care 06/24/23 13:52 Active ABDOMEN AND PELVIS W/0 CONTRAS [CT] Stat Exams 06/24/23 13:27 Completed AMYLASE Stat Lab 06/24/23 13:00 Completed BLOOD CULTURE Stat Lab 06/24/23 14:41 Received CBC W DIFF Stat Lab 06/24/23 13:00 Completed CMP Stat Lab 06/24/23 13:00 Completed CULTURE,URINE Stat Lab 06/24/23 14:26 Received LIPASE Stat Lab 06/24/23 13:00 Completed Lactic Acid Stat Lab 06/24/23 13:26 Completed Lactic Acid Stat Lab 06/24/23 15:44 Completed Manual Differential NC Stat Lab 06/24/23 13:00 Completed UA W/RFX UR CULTURE Stat Lab 06/24/23 14:26 Completed Medication Summary Generic Name Dose Route Start Last Admin Trade Name Yasmany PRN Reason Stop Dose Admin Piperacillin Sod/Tazobactam 100 mls @ 200 mls/hr 06/24/23 17:53 Sod 3.375 gm/ Sodium Chloride IV 06/24/23 18:22 STAT ONE Discontinued Medications Generic Name Dose Route Start Last Admin Trade Name Yasmany PRN Reason Stop Dose Admin Sodium Chloride 1,000 mls @ 999 mls/hr 06/24/23 13:26 06/24/23 15:14 Sodium Chloride 0.9% 1000 Ml IV 06/24/23 14:26 Infused .Q1H1M STA Infusion Sodium Chloride Confirm 06/24/23 13:32 Sodium Chloride 0.9% 1000 Ml Administered 06/24/23 13:33 Dose 1,000 mls @ ud .ROUTE .STK-MED ONE Sodium Chloride 1,000 mls @ 999 mls/hr 06/24/23 14:18 06/24/23 15:49 Sodium Chloride 0.9% 1000 Ml IV 06/24/23 15:18 Infused .Q1H1M STA Infusion Sodium Chloride Confirm 06/24/23 14:28 Sodium Chloride 0.9% 1000 Ml Administered 06/24/23 14:29 Dose 1,000 mls @ ud .ROUTE .STK-MED ONE Aztreonam 2 gm/ Sodium 100 mls @ 200 mls/hr 06/24/23 16:22 06/24/23 17:38 Chloride IV 06/24/23 16:51 200 mls/hr STAT ONE Administration Sodium Chloride Confirm 06/24/23 16:27 Sodium Chloride 0.9% 1000 Ml Administered 06/24/23 16:28 Dose 1,000 mls @ ud .ROUTE .STK-MED ONE Metoprolol Tartrate 2.5 mg 06/24/23 15:03 Metoprolol Tartrate 5 Mg/5 Ml Vial IV 06/24/23 15:04 STAT ONE Ondansetron HCl 4 mg 06/24/23 13:26 06/24/23 13:32 Ondansetron Hcl 4 Mg/2 Ml Vial IV 06/24/23 13:27 4 mg STAT ONE Administration Ondansetron HCl Confirm 06/24/23 13:32 Ondansetron Hcl 4 Mg/2 Ml Vial Administered 06/24/23 13:33 Dose 4 mg .ROUTE .STK-MED ONE Ondansetron HCl 4 mg 06/24/23 17:37 06/24/23 17:38 Ondansetron Hcl 4 Mg/2 Ml Vial IV 06/24/23 17:38 4 mg STAT ONE Administration Ondansetron HCl Confirm 06/24/23 17:37 Ondansetron Hcl 4 Mg/2 Ml Vial Administered 06/24/23 17:38 Dose 4 mg .ROUTE .STK-MED ONE Pantoprazole Sodium 40 mg 06/24/23 13:26 06/24/23 13:33 Pantoprazole 40 Mg Vial IV 06/24/23 13:27 40 mg STAT ONE Administration Pantoprazole Sodium Confirm 06/24/23 13:32 Pantoprazole 40 Mg Vial Administered 06/24/23 13:33 Dose 40 mg IV .STK-MED ONE Prochlorperazine Edisylate 5 mg 06/24/23 14:31 06/24/23 14:48 Prochlorperazine Edisylate 10 Mg/2 Ml Vial IV 06/24/23 14:32 5 mg STAT ONE Administration Prochlorperazine Edisylate Confirm 06/24/23 14:48 Prochlorperazine Edisylate 10 Mg/2 Ml Vial Administered 06/24/23 14:49 Dose 10 mg .ROUTE .STK-MED ONE Lab/Rad Data: Laboratory Result Diagrams 06/24/23 13:00 06/24/23 13:00 Laboratory Results 06/24/23 06/24/23 06/24/23 Range/Units Unknown Unknown 15:44 WBC (4.0-10.5) x10^3/uL RBC (4.1-5.4) x10^6/uL Hgb (12.0-16.0) g/dL Hct (35-47) % MCV (78-100) fL MCH (26-32) pg MCHC (32-36) g/dL RDW (11.5-14.0) % Plt Count (150-450) x10^3/uL Segmented Neutrophils (36.0-66.0) % Lymphocytes (Manual) (24-44) % Monocytes (Manual) (0.0-12.0) % Hypochromia Platelet Estimate (NORMAL) RBC Morphology Sodium (137-145) mmol/L Potassium (3.5-5.1) mmol/L Chloride (98-107) mmol/L Carbon Dioxide (22-30) mmol/L Anion Gap (5-15) MEQ/L BUN (7-17) mg/dL Creatinine (0.52-1.04) mg/dL Estimated GFR ML/MIN Glucose (74-106) mg/dL Lactic Acid 2.9 H (0.4-2.0) Calcium (8.4-10.2) mg/dL Total Bilirubin (0.2-1.3) mg/dL AST (14-36) U/L ALT (0-35) U/L Alkaline Phosphatase (38-126) U/L Serum Total Protein (6.3-8.2) g/dL Albumin (3.5-5.0) g/dL Amylase (30-110) U/L Lipase (23-300) U/L Urine Color (Yellow) Urine Appearance (Clear) Urine pH (4.6-8.0) Ur Specific [place] (1.005-1.030) Urine Protein (Negative) Urine Glucose (UA) (Negative) mg/dL Urine Ketones (Negative) Urine Blood (Negative) Urine Nitrite (Negative) Urine Bilirubin (Negative) Urine Urobilinogen (0.2) mg/dL Ur Leukocyte Esterase (Negative) U Hyaline Cast (Auto) (0-2) /LPF Urine Microscopic RBC (0-5) /HPF Urine Microscopic WBC (0-5) /HPF Ur Epithelial Cells (None Seen) /HPF Urine Bacteria (None Seen) /HPF Urine Culture Reflexed (NO) ABO Group A Rh Factor POSITIVE Antibody Screen NEGATIVE (NEGATIVE) Crossmatch COMPATIBLE COMPATIBLE (COMPATIBLE) 06/24/23 06/24/23 06/24/23 Range/Units 14:26 13:26 13:00 WBC (4.0-10.5) x10^3/uL RBC (4.1-5.4) x10^6/uL Hgb (12.0-16.0) g/dL Hct (35-47) % MCV (78-100) fL MCH (26-32) pg MCHC (32-36) g/dL RDW (11.5-14.0) % Plt Count (150-450) x10^3/uL Segmented Neutrophils (36.0-66.0) % Lymphocytes (Manual) (24-44) % Monocytes (Manual) (0.0-12.0) % Hypochromia Platelet Estimate (NORMAL) RBC Morphology Sodium 127 L (137-145) mmol/L Potassium 4.3 (3.5-5.1) mmol/L Chloride 95 L (98-107) mmol/L Carbon Dioxide 20 L (22-30) mmol/L Anion Gap 16.5 H (5-15) MEQ/L BUN 62 H (7-17) mg/dL Creatinine 2.44 H (0.52-1.04) mg/dL Estimated GFR 23.2 ML/MIN Glucose 155 H (74-106) mg/dL Lactic Acid 3.6 H (0.4-2.0) Calcium 7.7 L (8.4-10.2) mg/dL Total Bilirubin 1.60 H (0.2-1.3) mg/dL AST 56 H (14-36) U/L ALT 58 H (0-35) U/L Alkaline Phosphatase 112 (38-126) U/L Serum Total Protein 7.4 (6.3-8.2) g/dL Albumin 2.8 L (3.5-5.0) g/dL Amylase 57 (30-110) U/L Lipase 29 (23-300) U/L Urine Color Dark Yellow A (Yellow) Urine Appearance Turbid A (Clear) Urine pH 5.0 (4.6-8.0) Ur Specific [place] 1.015 (1.005-1.030) Urine Protein 100 A (Negative) Urine Glucose (UA) Negative (Negative) mg/dL Urine Ketones Negative (Negative) Urine Blood Large A (Negative) Urine Nitrite Negative (Negative) Urine Bilirubin Negative (Negative) Urine Urobilinogen 0.2 (0.2) mg/dL Ur Leukocyte Esterase Large A (Negative) U Hyaline Cast (Auto) 0-2 (0-2) /LPF Urine Microscopic RBC 11-20 A (0-5) /HPF Urine Microscopic WBC 11-20 A (0-5) /HPF Ur Epithelial Cells Rare (None Seen) /HPF Urine Bacteria Moderate A (None Seen) /HPF Urine Culture Reflexed ORDERED SEPARATELY (NO) ABO Group Rh Factor Antibody Screen (NEGATIVE) Crossmatch (COMPATIBLE) 06/24/23 Range/Units 13:00 WBC 6.5 (4.0-10.5) x10^3/uL RBC 2.59 L (4.1-5.4) x10^6/uL Hgb 7.2 L (12.0-16.0) g/dL Hct 23.1 L (35-47) % MCV 89.2 (78-100) fL MCH 27.8 (26-32) pg MCHC 31.2 L (32-36) g/dL RDW 17.0 H (11.5-14.0) % Plt Count 52 L (150-450) x10^3/uL Segmented Neutrophils 82 H (36.0-66.0) % Lymphocytes (Manual) 17 L (24-44) % Monocytes (Manual) 1 (0.0-12.0) % Hypochromia 3+ Platelet Estimate DECREASED (NORMAL) RBC Morphology ABNORMAL Sodium (137-145) mmol/L Potassium (3.5-5.1) mmol/L Chloride (98-107) mmol/L Carbon Dioxide (22-30) mmol/L Anion Gap (5-15) MEQ/L BUN (7-17) mg/dL Creatinine (0.52-1.04) mg/dL Estimated GFR ML/MIN Glucose (74-106) mg/dL Lactic Acid (0.4-2.0) Calcium (8.4-10.2) mg/dL Total Bilirubin (0.2-1.3) mg/dL AST (14-36) U/L ALT (0-35) U/L Alkaline Phosphatase (38-126) U/L Serum Total Protein (6.3-8.2) g/dL Albumin (3.5-5.0) g/dL Amylase (30-110) U/L Lipase (23-300) U/L Urine Color (Yellow) Urine Appearance (Clear) Urine pH (4.6-8.0) Ur Specific [place] (1.005-1.030) Urine Protein (Negative) Urine Glucose (UA) (Negative) mg/dL Urine Ketones (Negative) Urine Blood (Negative) Urine Nitrite (Negative) Urine Bilirubin (Negative) Urine Urobilinogen (0.2) mg/dL Ur Leukocyte Esterase (Negative) U Hyaline Cast (Auto) (0-2) /LPF Urine Microscopic RBC (0-5) /HPF Urine Microscopic WBC (0-5) /HPF Ur Epithelial Cells (None Seen) /HPF Urine Bacteria (None Seen) /HPF Urine Culture Reflexed (NO) ABO Group Rh Factor Antibody Screen (NEGATIVE) Crossmatch (COMPATIBLE) - Progress Progress: improved, pain not gone completely, re-examined Progress Note: 06/24/23 14:29 This patient's medical issue is 1 of high complexity. The patient has multiple medical problems that are highly complex. She presents with tachycardia and hypotension in addition to her other medical problems. Her level of complexity is also based on review of the past medical history, review of the patient's medication list, review of the patient's drug allergy list, review of the patient's history of present illness and physical finds on examination. The work-up in this patient is placement of 2 intravenous lines, twelve-lead EKG, CBC, CMP, lactic acid level, urinalysis, amylase and lipase levels. 06/24/23 16:45 CT scan of the abdomen and pelvis without contrast was interpreted by the radiologist and I reviewed the impression. There are new bilateral pulmonary nodules worrisome for metastasis. There is a new [place] supraumbilical ventral hernia defect. There is new hepatosplenomegaly present. I reviewed the results of the patient's work-up. Patient has what appears to be urosepsis with symptomatic anemia and thrombocytopenia. She has a hyponatremia with an elevated anion gap and elevated lactic acid. She has renal failure as well. 06/24/23 17:09 I called the transfer center at [phone] and the transfer center rotary kiln operator told me that none of the facilities up in the [place] area are excepting any patients. She was going to use put a call into Dr. Dante David, the patient's general surgeon. 06/24/23 17:44 We put in a call to the [facility] system approximately 20 minutes ago and we are waiting a callback from them. 06/24/23 17:54 I spoke with the ICU bookbinding machine operator, Dr. Fernandez, and reviewed the patient history, physical findings, work-up results and response to the work-up results with him. He accepts the patient in transfer. The transfer center did tell me that there is a bed available and they will be calling back shortly with the bed assignment. I will have this discussion with the patient about the importance of Guevara catheter and being transferred to a different facility than she is used to. Counseled pt/family regarding: lab results, diagnosis, rad results Medical Desision Making - Independent Historian Additional History obtained from: Family - Diagnostic Testing Diagnostic test were ordered, analyzed, and reviewed by me: Yes Radiological Interpretation: Reviewed by me, Teleradiologist Report - Risk of complications The pt has a high risk of morbidity or mortality based on: Decision regarding hospitilization or escalation of hosp level of care - Departure Departure Disposition: Transfer Clinical Impression: Renal failure, Sepsis, Hypotension, Tachycardia, Symptomatic anemia, Lactic acidemia, Hyponatremia, Pulmonary nodules Condition: Serious Critical Care Time: Yes Critical Care Time(excluding separately billable procedures): Critical 30-74 mins (55 minutes) Referrals: LEE JENKINS MD [Primary Care Provider] - Follow up/PCP as directed
[2023-06-24] MEDS ORDERED: Zofran 4 MG/2 ML VIAL IV ONE ×2 (13:26→17:37)
[2023-06-24] MEDS ORDERED: PROTONIX 40 MG IV IV ONE ×2 (13:26→13:32)
[2023-06-24] MEDS ORDERED: Sodium Chloride 0.9% 1000 ML 1,000 ML IV STA ×3 (13:26→18:05)
[2023-06-24] MEDS ORDERED: Zofran 4 MG/2 ML VIAL ONE ×2 (13:32→17:37)
[2023-06-24] MEDS ORDERED: Sodium Chloride 0.9% 1000 ML 1,000 ML ONE ×4 (13:32→18:05)
[2023-06-24 14:28] LABS: Hematocrit 23.1 % (35-47); Hemoglobin 7.2 g/dL (12.0-16.0); Mean Cell Volume 89.2 fL (78-100); Mean Corpuscular Hemoglobin 27.8 pg (26-32); Mean Corpuscular Hgb Concent. 31.2 g/dL (32-36); Platelet Count 52 x10^3/uL (150-450); Red Blood Count 2.59 x10^6/uL (4.1-5.4); White Blood Count 6.5 x10^3/uL (4.0-10.5)
[2023-06-24] MEDS ORDERED: Compazine 10 MG/2 ML IV ONE (14:31)
[2023-06-24 14:40] LABS: ALBUMIN 2.8 g/dL (3.5-5.0); ANION GAP 16.5 MEQ/L (5-15); BILIRUBIN,TOTAL 1.6 mg/dL (0.2-1.3); Calcium 7.7 mg/dL (8.4-10.2); Creatinine 1 2.44 mg/dL (0.52-1.04); EST GLOMERULAR FILTRATION RATE 23.2 ML/MIN; Potassium 4.3 mmol/L (3.5-5.1); Total Protein 7.4 g/dL (6.3-8.2)
[2023-06-24] MEDS ORDERED: Compazine 10 MG/2 ML ONE (14:48)
[2023-06-24 14:59] LABS: Appearance Turbid (Clear); Bilirubin Negative (Negative); Blood Large (Negative); Glucose, Urine Negative (Negative); Ketones Negative (Negative); Leukocyte Esterase Large (Negative); Nitrite Negative (Negative); Protein,Urine Dip 100 (Negative); Specific Gravity 1.015 (1.005-1.030); Urobilinogen 0.2 mg/dL (0.2)
[2023-06-24 15:00] LABS: ADD URINE CULTURE? ORDERED SEPARATELY (NO); Bacteria Moderate /HPF (None Seen); Epithelial Cells Rare /HPF (None Seen); Hyaline Casts 0-2 /LPF (0-2)
[2023-06-24] MEDS ORDERED: LOPRESSOR INJECTION IV ONE (15:03)
--- NOTE | 2023-06-24 15:40 | XRAY ---
Indication: Abdomen pain and vomiting. Multiple contiguous axial images obtained through the abdomen and pelvis without contrast. Comparison: August 04, 2022 Study is slightly degraded by respiration artifact. Lung bases demonstrate new multiple bilateral pulmonary nodules worrisome for metastasis. Heart not enlarged. Noncontrasted stomach and bowel loops appear nonobstructed. Again right hemicolectomy with mesenteric induration less than before. No free fluid/air. New 21.3 cm splenomegaly and 19.5 cm hepatomegaly. Again cholecystectomy and hysterectomy. Remaining liver, pancreas, adrenal glands, kidneys, ureters, bladder, and aorta are unremarkable for noncontrast exam. New 6 cm wide supraumbilical ventral hernia defect. Osseous structures intact. Impression: 1. New multiple bilateral pulmonary nodules worrisome for metastasis. 2. New hepatosplenomegaly. 3. New [place] supraumbilical ventral hernia defect.
[2023-06-24] MEDS ORDERED: AZACTAM 1 GM*** 2 GM in Sodium Chloride 0.9% 100 ML IV ONE (16:22)
[2023-06-24 16:24] LABS: ABO TYPING A; Antibody Screen NEGATIVE (NEGATIVE); RH TYPING POSITIVE
[2023-06-24 16:25] LABS: CROSS MATCH (PRBC) COMPATIBLE (COMPATIBLE)
[2023-06-24 16:36] LABS: Lymphocytes 17 % (24-44); Monocyte 1 % (0.0-12.0); Neutrophils 82 % (36.0-66.0); Total Cells Counted 100
[2023-06-24 16:39] LABS: Platelet Estimate DECREASED (NORMAL)
[2023-06-24 16:40] LABS: Hypochromia 3+
[2023-06-24] MEDS ORDERED: PIPERACILLIN/TAZOBACTAM 3.375 GM in Sodium Chloride 100ML MINI-BAG PLUS 100 ML IV ONE (17:53)
[2023-06-24] MEDS ORDERED: Sodium Chloride 100ML MINI-BAG PLUS 100 ML IV ONE (18:02)
[2023-06-24] MEDS ORDERED: PIPERACILLIN/TAZOBACTAM IV ONE (18:02)
[2023-06-24] MEDS ORDERED: BENADRYL 50 MG/ML IV ONE (18:16)
[2023-06-24] MEDS ORDERED: BENADRYL 50 MG/ML ONE (18:18)
[2023-06-24] MEDS ORDERED: solu-CORTEF 100MG IV ONE (18:56)
[2023-06-24] MEDS ORDERED: NOREPINEPHRINE 8 MG/250 ML-D5W 8 MG/250 ML PLAST..BAG IV PRN (18:57)
[2023-06-24] MEDS ORDERED: solu-CORTEF 100MG ONE (19:05)
[2023-06-24] MEDS ORDERED: NOREPINEPHRINE 8 MG/250 ML-D5W 8 MG/250 ML PLAST..BAG IV ONE (19:05)
[2023-06-24] MEDS ORDERED: Sterile H2O 10 ml IJ ONE (19:07)
[2023-06-24 19:13] VITALS: BP 84/69; PULSE 154; RESP 57; TEMP 105.6; O2SAT 99
== END 2023-06-24 20:55 | disposition short-term general hospital (02) ==
LOC: ED 13:03
DX: A41.9 Sepsis, unspecified organism (principal); R65.20 Severe sepsis without septic shock; N18.9 Chronic kidney disease, unspecified; I95.9 Hypotension, unspecified; R00.0 Tachycardia, unspecified; D64.9 Anemia, unspecified; E87.20 Acidosis, unspecified; E87.1 Hypo-osmolality and hyponatremia; R91.8 Other nonspecific abnormal finding of lung field; D69.6 Thrombocytopenia, unspecified; R11.2 Nausea with vomiting, unspecified; R50.9 Fever, unspecified
CPT/HCPCS: 36000; 36415; 36430; 51702; 74176; 80053; 81001; 82150; 83605; 83690; 85025; 86078; 86850; 86900; 86901; 86922; 87040; 87086; 93005; 96360; 96361; 96365; 96367; 96374; 96375; 96376; 99291; P9016; 99285; J1200; J1720; J2405

== ENCOUNTER 2023-08-11 19:04 | Emergency (ER) | payer MEDICARE ==
[2023-08-11 19:28] VITALS: TEMP 98.7
[2023-08-11 20:23] VITALS: O2SAT 97
--- NOTE | 2023-08-11 20:23 | ERPHSYRPT ---
- History of Present Illness Time Seen by Provider: 08/11/23 19:40 Source: patient Exam Limitations: no limitations Patient Subjective Stated Complaint: pt states Dr. Calvillo told pt to come to ER for blood Triage Nursing Assessment: pt came into the er via wheelchair; pt is axo x3; transferred self to cot; c/o abnormal labs; skin gonzalez, dry, warm; no respiratory distress present; vitals wnl Physician History: Patient a 43-year-old female with a history of cardiomyopathy, end-stage renal disease on hemodialysis presents to our ED for a blood transfusion. Patient states primary care doctor obtained outpatient laboratory work-up. Work-up revealed a profound anemia. Patient was advised to follow-up at a local ED for blood transfusion. Patient's cloth finishing range back tender advised if patient requires admission to transfer to [facility] so he can manage our patient. Patient states she feels unwell. She feels weak. No nausea or vomiting. No diarrhea. No rash. Symptoms are constant. Symptoms are moderate in intensity. No specific worsening improving factors. Sister at bedside. They voiced no other complaint s or concerns at this time. Portions of this note were created with voice recognition technology. There may be grammatical, spelling, punctuation or sound alike errors Timing/Duration: today Severity: moderate Modifying Factors: Improves With: nothing Associated Symptoms: denies symptoms Allergies/Adverse Reactions: acetaminophen [From Tylenol] Allergy (Severe, Verified 08/11/23 19:10) Swelling of Tongue and Lips THROAT SWELL AND BREATHING DIFFICULTY hydrocodone [From Lortab] Allergy (Severe, Verified 08/11/23 19:10) Swelling of Tongue and Lips natalizumab [From Tysabri] Allergy (Severe, Verified 08/11/23 19:10) Hives onion Allergy (Severe, Verified 08/11/23 19:10) Swelling of Tongue and Lips raw onion only tomato Allergy (Severe, Verified 08/11/23 19:10) Tightness of Throat latex Allergy (Intermediate, Verified 08/11/23 19:10) Hives morphine Adverse Reaction (Severe, Verified 08/11/23 19:10) makes pt mad/angry/volitle Home Medications: Apixaban [Eliquis] 5 mg PO BID 08/11/23 [History] Ferrous Sulfate 325 mg [Feosol 325 mg] 325 mg PO UD 08/11/23 [History] Omeprazole 40 mg PO DAILY 08/11/23 [History] Ondansetron ODT 4 MG [Zofran Odt 4 mg] 1 tab SL Q8HPRN PRN 08/11/23 [History] Oxycodone HCl 5 mg PO BID 08/11/23 [History] clonazePAM [Clonazepam] 0.125 mg PO BID PRN 08/11/23 [History] Hx Tetanus, Diphtheria Vaccination/Date Given: Yes Hx Influenza Vaccination/Date Given: No Hx Pneumococcal Vaccination/Date Given: No Travel Risk - International Travel Have you traveled outside of the country in past 3 weeks: No - Coronavirus Screening Are you exhibiting any of the following symptoms?: No - Vaccine Status Have you recieved a Covid-19 vaccination: Yes Cyberathlete: Unknown - Vaccination Dates Dates if Unknown: UNKNOWN - Review of Systems Constitutional: No Symptoms, No Fever, No Chills Eyes: No Symptoms Ears, Nose, & Throat: No Symptoms Respiratory: No Symptoms, No Cough, No Dyspnea Cardiac: No Symptoms, No Chest Pain, No Edema, No Syncope Abdominal/Gastrointestinal: No Symptoms, No Abdominal Pain, No Nausea, No Vomiting, No Diarrhea Genitourinary Symptoms: No Symptoms, No Dysuria Musculoskeletal: No Symptoms, No Back Pain, No Neck Pain Skin: No Symptoms, No Rash Neurological: No Symptoms, No Dizziness, No Focal Weakness, No Sensory Changes Psychological: No Symptoms Endocrine: No Symptoms Hematologic/Lymphatic: No Symptoms Immunological/Allergic: No Symptoms All Other Systems: Reviewed and Negative - Past Medical History Pertinent Past Medical History: Yes Neurological History: Migraines, Seizures ENT History: No Pertinent History Cardiac History: Deep Vein Thrombosis Respiratory History: Pulmonary Embolism Endocrine Medical History: No Pertinent History Musculoskeletal History: No Pertinent History GI Medical History: Crohns Disease, GERD, Pancreatitis, Ulcer History: Renal Disease Psycho-Social History: Anxiety, Bipolar, Depression Female Reproductive Disorders: Fibroids, Uterine Cancer Other Medical History: unknown source of acute kidney failure 04/28/2022. 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 - Past Surgical History Past Surgical History: Yes Neuro Surgical History: No Pertinent History Cardiac: No Pertinent History Respiratory: No Pertinent History Gastrointestinal: Cholecystectomy, Other Genitourinary: No Pertinent History Musculoskeletal: Orthopedic Surgery Female Surgical History: Hysterectomy, Dilation & Curettage, Other Other Surgical History: intestine resect 4-5 times, pins R foot, multiple port placement - Social History Smoking Status: Light tobacco smoker Exposure to second hand smoke: Yes Drug Use: marijuana Patient Lives Alone: No - Female History Hx Now: No - Nursing Vital Signs Nursing Vital Signs: Initial Vital Signs Pulse Rate 105 H 08/11/23 19:13 Respiratory Rate 30 H 08/11/23 19:13 Blood Pressure 100/61 08/11/23 19:13 O2 Sat by Pulse Oximetry 100 08/11/23 19:13 Pain Scale Pain Intensity 10 - Physical Exam General Appearance: no apparent distress, alert Eye Exam: PERRL/EOMI, eyes nml inspection Ears, Nose, Throat Exam: normal ENT inspection, TMs normal, pharynx normal, moist mucous membranes Neck Exam: normal inspection, non-tender, supple, full range of motion Respiratory Exam: normal breath sounds, lungs clear, airway intact, No respiratory distress Cardiovascular Exam: regular rate/rhythm, normal heart sounds, normal peripheral pulses Gastrointestinal/Abdomen Exam: soft, normal bowel sounds, No tenderness, No mass Back Exam: normal inspection, normal range of motion, No CVA tenderness, No vertebral tenderness Extremity Exam: normal inspection, normal range of motion, pelvis stable Neurologic Exam: alert, oriented x 3, cooperative, normal mood/affect, nml cerebellar function, nml station & gait, sensation nml, No motor deficits Skin Exam: normal color, warm, dry, No rash Lymphatic Exam: No adenopathy SpO2 Interpretation: normal SpO2: 97 O2 Delivery: Room Air - Course Nursing assessment & vital signs reviewed: Yes Ordered Tests: Active Orders 24 hr Category Date Time Status Packaging Assembler STAT Care 08/11/23 20:18 Active IV Insertion STAT Care 08/11/23 20:17 Active Pulse Oximetry (ED) STAT Care 08/11/23 20:17 Active CBC W DIFF Stat Lab 08/11/23 20:38 Completed CMP Stat Lab 08/11/23 20:38 Completed Medication Summary Discontinued Medications Generic Name Dose Route Start Last Admin Trade Name Freq PRN Reason Stop Dose Admin Ondansetron HCl Confirm 08/11/23 20:39 Ondansetron Hcl 4 Mg/2 Ml Vial Administered 08/11/23 20:40 Dose 4 mg .ROUTE .STK-MED ONE Ondansetron HCl 4 mg 08/11/23 20:43 08/11/23 20:44 Ondansetron Hcl 4 Mg/2 Ml Vial IV 08/11/23 20:44 4 mg STAT ONE Administration Potassium Chloride 40 meq 08/11/23 21:28 Potassium Chloride Tab 10 Meq Tab PO 08/11/23 21:29 STAT ONE Lab/Rad Data: Laboratory Result Diagrams 08/11/23 20:38 08/11/23 20:38 Laboratory Results 08/11/23 08/11/23 Range/Units 20:38 20:38 WBC 4.4 (4.0-10.5) x10^3/uL RBC 2.22 L (4.1-5.4) x10^6/uL Hgb 6.7 L* (12.0-16.0) g/dL Hct 21.5 L (35-47) % MCV 96.8 (78-100) fL MCH 30.2 (26-32) pg MCHC 31.2 L (32-36) g/dL RDW 18.1 H (11.5-14.0) % Plt Count 106 L (150-450) x10^3/uL MPV 12.3 H (7.5-11.0) fL Gran % 63.1 (36.0-66.0) % Immature Gran % (Auto) 0.5 H (0.00-0.4) % Nucleat RBC Rel Count 0.0 (0.00-0.1) % Eos # (Auto) 0.01 (0-0.5) x10^3/uL Immature Gran # (Auto) 0.02 (0.00-0.03) x10^3u/L Absolute Lymphs (auto) 0.93 L (1.0-4.6) x10^3/uL Absolute Monos (auto) 0.64 (0.0-1.3) x10^3/uL Absolute Nucleated RBC 0.00 (0.00-0.01) x10^3u/L Lymphocytes % 21.3 L (24.0-44.0) % Monocytes % 14.7 H (0.0-12.0) % Eosinophils % 0.2 (0.00-5.0) % Basophils % 0.2 (0.0-0.4) % Absolute Granulocytes 2.75 (1.4-6.9) x10^3/uL Basophils # 0.01 (0-0.4) x10^3/uL Sodium 135 L (137-145) mmol/L Potassium 3.0 L* (3.5-5.1) mmol/L Chloride 96 L (98-107) mmol/L Carbon Dioxide 31 H (22-30) mmol/L Anion Gap 10.9 (5-15) MEQ/L BUN 51 H (7-17) mg/dL Creatinine 2.87 H (0.52-1.04) mg/dL Estimated GFR 19.2 ML/MIN Glucose 92 (74-106) mg/dL Calcium 7.5 L (8.4-10.2) mg/dL Total Bilirubin 1.60 H (0.2-1.3) mg/dL AST 130 H (14-36) U/L ALT 18 (0-35) U/L Alkaline Phosphatase 142 H (38-126) U/L Serum Total Protein 8.7 H (6.3-8.2) g/dL Albumin 2.5 L (3.5-5.0) g/dL - Progress Progress: improved Progress Note: Patient is a 43-year-old female end-stage renal disease presents to our ED for abnormal labs. Sister at bedside states patient was diagnosed with low hemoglobin and was advised to come to the local ED for blood transfusion. However she also added that Dr. Amado's cloth finishing range back tender advised transfer to [facility] in the event patient requires admission. Patient's hemoglobin is 6.7. Potassium is 3.0. Patient will require hospitalization for transfusion and monitoring. Therefore we contacted [facility] to transfer patient. Case discussed with Dr. Casillas at 9:[address] Casillas accepts transfer to [facility]. Oral dose of potassium chloride administered. Patient typed and screened blood products ordered. Portions of this note were created with voice recognition technology. There may be grammatical, spelling, punctuation or sound alike errors Complexity problem addressed is moderate acute complicated No critical care time Complexity of data reviewed and analyzed is extensive. Test ordered test reviewed. The results of the laboratory studies were analyzed and clinically correlated with history and physical examination. Management discussed with Dr. Casillas ER physician at [facility] who accepts transfer. He is aware patient will require hemodialysis tomorrow Risk of complication and or risk morbidity/mortality of patient management is h igh. Patient requires hospitalization/transfer to higher level of care. Vital stable. Time spent to transfer patient is approximately 20 minutes. Plan of care established for shared decision making. Portions of this note were created with voice recognition technology. There may be grammatical, spelling, punctuation or sound alike errors 08/11/23 21:[address] Other (Sonja) Will see patient in: office Counseled pt/family regarding: lab results, diagnosis - Departure Departure Disposition: Transfer Clinical Impression: Symptomatic anemia, Hypokalemia, Hypocalcemia, Hypoalbuminemia Condition: Stable Critical Care Time: No Referrals: OSCAR CALVILLO, [Primary Care Provider] - Follow up/PCP as directed
[2023-08-11] MEDS ORDERED: Zofran 4 MG/2 ML VIAL ONE (20:39)
[2023-08-11 20:43] LABS: Absolute Neutrophil Ct (ANC) 2.75 x10^3/uL (1.4-6.9); BASOPHIL % 0.2 % (0.0-0.4); Basophil (Absolute #) 0.01 x10^3/uL (0-0.4); Eosinophil % 0.2 % (0.00-5.0); Eosinophil (Absolute #) 0.01 x10^3/uL (0-0.5); Hematocrit 21.5 % (35-47); IMMATURE GRAN # 0.02 x10^3u/L (0.00-0.03); IMMATURE GRAN % 0.5 % (0.00-0.4); Lymphocyte (Absolute #) 0.93 x10^3/uL (1.0-4.6); Lymphocytes % 21.3 % (24.0-44.0); Mean Cell Volume 96.8 fL (78-100); Mean Corpuscular Hemoglobin 30.2 pg (26-32); Mean Corpuscular Hgb Concent. 31.2 g/dL (32-36); Mean Platelet Volume 12.3 fL (7.5-11.0); Monocyte (Absolute #) 0.64 x10^3/uL (0.0-1.3); Monocytes % 14.7 % (0.0-12.0); Neutrophil % 63.1 % (36.0-66.0); Platelet Count 106 x10^3/uL (150-450); Red Blood Count 2.22 x10^6/uL (4.1-5.4); Red Cell Distribution Width 18.1 % (11.5-14.0); White Blood Count 4.4 x10^3/uL (4.0-10.5)
[2023-08-11] MEDS ORDERED: Zofran 4 MG/2 ML VIAL IV ONE (20:43)
[2023-08-11 20:54] LABS: Hemoglobin 6.7 g/dL (12.0-16.0)
[2023-08-11 20:55] LABS: ALBUMIN 2.5 g/dL (3.5-5.0); ANION GAP 10.9 MEQ/L (5-15); BILIRUBIN,TOTAL 1.6 mg/dL (0.2-1.3); Calcium 7.5 mg/dL (8.4-10.2); Creatinine 1 2.87 mg/dL (0.52-1.04); EST GLOMERULAR FILTRATION RATE 19.2 ML/MIN; Total Protein 8.7 g/dL (6.3-8.2)
[2023-08-11 21:39] VITALS: BP 99/73; PULSE 104; RESP 27
[2023-08-11] MEDS ORDERED: Klor Con PO ONE (21:40)
[2023-08-11] MEDS: Klor Con PO ONE ×2 (21:41→21:45)
== END 2023-08-11 22:13 | disposition short-term general hospital (02) ==
LOC: ED 19:04
DX: D64.9 Anemia, unspecified (principal); E87.6 Hypokalemia; E83.51 Hypocalcemia; E88.09 Other disorders of plasma-protein metabolism, not elsewhere classified; N18.6 End stage renal disease; Z99.2 Dependence on renal dialysis; Z79.01 Long term (current) use of anticoagulants; Z79.891 Long term (current) use of opiate analgesic; Z79.899 Other long term (current) drug therapy; Z72.0 Tobacco use
CPT/HCPCS: 36000; 36415; 80053; 85025; 93041; 94760; 96374; 99284; J1642; J2405; A9270-GY

== ENCOUNTER 2023-10-13 13:17 | Emergency (ER) | payer MEDICARE ==
--- NOTE | 2023-10-13 13:21 | ERPHSYRPT ---
- History of Present Illness Time Seen by Provider: 10/13/23 13:20 Source: patient, family Exam Limitations: no limitations Physician History: This is a 43-year-old white female patient of Dr. Calvillo who had labs drawn today. She was found to have a a low potassium of 2.9. Patient has multiple chronic illnesses that are significant. She has a history of DVT and pulmonary embolus on Eliquis, she has end-stage renal disease on dialysis, she has chronically low hemoglobin, she has a history of Crohn's disease, gastroesophageal reflux disease, pancreatitis, migraine headaches, cardiomyopathy, anxiety, bipolar disorder, depression as well as multiple chronic abdominal wall fistulous. Patient has a PICC line in place, a dialysis catheter/port in place as well as a feeding tube. She does not take anything by mouth. She has Thursday dialysis. Patient is adamant that she is not going to be admitted into any hospital or transferred to any hospital. She was just discharged from an [facility] on Thursday, prior to this evaluation, after a 2-1/2-month stay. She agrees to intravenous potassium as well as potassium through her feeding tube. Patient also agrees to returning back to this hospital tomorrow morning at 8 AM, 10/14/2023. She will wait in the emergency department area for the results of her potassium. The results of that level will be called to the emergency room physician in attendance at that time. Patient denies chest pain. Patient denies shortness of breath. Patient denies abdominal pain. Timing/Duration: today Severity: mild (Patient has no specific complaints.) Associated Symptoms: denies symptoms Allergies/Adverse Reactions: acetaminophen [From Tylenol] Allergy (Severe, Verified 08/11/23 19:10) Swelling of Tongue and Lips THROAT SWELL AND BREATHING DIFFICULTY hydrocodone [From Lortab] Allergy (Severe, Verified 08/11/23 19:10) Swelling of Tongue and Lips natalizumab [From Tysabri] Allergy (Severe, Verified 08/11/23 19:10) Hives onion Allergy (Severe, Verified 08/11/23 19:10) Swelling of Tongue and Lips raw onion only tomato Allergy (Severe, Verified 08/11/23 19:10) Tightness of Throat latex Allergy (Intermediate, Verified 08/11/23 19:10) Hives morphine Adverse Reaction (Severe, Verified 08/11/23 19:10) makes pt mad/angry/volitle Home Medications: Apixaban [Eliquis] 5 mg PO BID 08/11/23 [History] Ferrous Sulfate 325 mg [Feosol 325 mg] 325 mg PO UD 08/11/23 [History] Omeprazole 40 mg PO DAILY 08/11/23 [History] Ondansetron ODT 4 MG [Zofran Odt 4 mg] 1 tab SL Q8HPRN PRN 08/11/23 [History] Oxycodone HCl 5 mg PO BID 08/11/23 [History] clonazePAM [Clonazepam] 0.125 mg PO BID PRN 08/11/23 [History] Hx Tetanus, Diphtheria Vaccination/Date Given: Yes Hx Influenza Vaccination/Date Given: No Hx Pneumococcal Vaccination/Date Given: No Travel Risk - International Travel Have you traveled outside of the country in past 3 weeks: No - Coronavirus Screening Are you exhibiting any of the following symptoms?: No Close contact with a COVID-19 positive Pt in past 14-21 Days: No - Vaccine Status Have you recieved a Covid-19 vaccination: Yes Network Security Analyst: Unknown - Vaccination Dates Dates if Unknown: UNKNOWN - Review of Systems Constitutional: Weakness (Chronic) Eyes: No Symptoms Ears, Nose, & Throat: No Symptoms Respiratory: No Symptoms Cardiac: No Symptoms Abdominal/Gastrointestinal: No Symptoms Genitourinary Symptoms: No Symptoms Musculoskeletal: No Symptoms Skin: No Symptoms Neurological: No Symptoms Psychological: No Symptoms Endocrine: No Symptoms Hematologic/Lymphatic: No Symptoms Immunological/Allergic: No Symptoms All Other Systems: Reviewed and Negative - Past Medical History Pertinent Past Medical History: Yes Neurological History: Migraines, Seizures ENT History: No Pertinent History Cardiac History: Deep Vein Thrombosis Respiratory History: Pulmonary Embolism Endocrine Medical History: No Pertinent History Musculoskeletal History: No Pertinent History GI Medical History: Crohns Disease, GERD, Pancreatitis, Ulcer History: Renal Disease Psycho-Social History: Anxiety, Bipolar, Depression Female Reproductive Disorders: Fibroids, Uterine Cancer Other Medical History: unknown source of acute kidney failure 04/28/2022. 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 - Past Surgical History Past Surgical History: Yes Neuro Surgical History: No Pertinent History Cardiac: No Pertinent History Respiratory: No Pertinent History Gastrointestinal: Cholecystectomy, Other Genitourinary: No Pertinent History Musculoskeletal: Orthopedic Surgery Female Surgical History: Hysterectomy, Dilation & Curettage, Other Other Surgical History: intestine resect 4-5 times, pins R foot, multiple port placement - Social History Smoking Status: Light tobacco smoker Exposure to second hand smoke: Yes Drug Use: marijuana Patient Lives Alone: No - Nursing Vital Signs Nursing Vital Signs: Initial Vital Signs Temperature 97.1 F 10/13/23 13:21 Pulse Rate 108 H 10/13/23 13:21 Respiratory Rate 20 10/13/23 13:21 Blood Pressure 108/66 10/13/23 13:21 O2 Sat by Pulse Oximetry 98 10/13/23 13:21 Pain Scale Pain Intensity 0 - Physical Exam General Appearance: no apparent distress, alert Eye Exam: PERRL/EOMI, eyes nml inspection Ears, Nose, Throat Exam: normal ENT inspection, dry mucous membranes Neck Exam: normal inspection, non-tender, supple, full range of motion Respiratory Exam: normal breath sounds, lungs clear, airway intact, No chest tenderness, No respiratory distress Cardiovascular Exam: regular rate/rhythm (At the time of my examination of her), normal heart sounds (At the time of my examination of her), normal peripheral pulses (At the time of my examination of her) Gastrointestinal/Abdomen Exam: soft, normal bowel sounds, tenderness, other (Feeding tube in place) Pelvic Exam: not done Rectal Exam: not done Back Exam: normal inspection, normal range of motion, No CVA tenderness, No vertebral tenderness Extremity Exam: normal inspection, normal range of motion, pelvis stable Neurologic Exam: alert, oriented x 3, cooperative, lumber straightened II-XII nml as tested, n ormal mood/affect, nml cerebellar function, nml station & gait, sensation nml Skin Exam: normal color, warm, dry Lymphatic Exam: No adenopathy SpO2 Interpretation: normal O2 Delivery: Room Air - Course Nursing assessment & vital signs reviewed: Yes EKG Interpreted by Me: RATE (102), Sinus Tach, Left [place] Deviation (Borderline), prolonged QT interval, NORMAL QRS, Other (No acute ischemic changes on today's twelve-lead EKG.) Ordered Tests: Active Orders 24 hr Category Date Time Status IV Insertion STAT Care 10/13/23 15:36 Active Telemetry q4h Care 10/13/23 13:56 Active BMP Stat Lab 10/13/23 17:40 Completed Medication Summary Generic Name Dose Route Start Last Admin Trade Name Freq PRN Reason Stop Dose Admin Potassium Chloride 20 meq in 100 mls @ 50 mls/hr 10/13/23 14:00 10/13/23 16:03 Potassium Chloride 20 Meq In Water 100ml IV 10/13/23 17:59 50 mls/hr Q2H ROMULO Administration Discontinued Medications Generic Name Dose Route Start Last Admin Trade Name Freq PRN Reason Stop Dose Admin Potassium Bicarbonate 25 meq 10/13/23 13:55 10/13/23 14:02 Potassium Bicarbonate 25 Meq Tab G-TUBE 10/13/23 13:56 25 meq STAT ONE Administration Potassium Bicarbonate Confirm 10/13/23 13:57 Potassium Bicarbonate 25 Meq Tab Administered 10/13/23 13:58 Dose 25 meq .ROUTE .STK-MED ONE Lab/Rad Data: Laboratory Result Diagrams 10/13/23 17:40 Laboratory Results 10/13/23 Range/Units 17:40 Sodium 132 L (137-145) mmol/L Potassium 3.8 D (3.5-5.1) mmol/L Chloride 99 (98-107) mmol/L Carbon Dioxide 22 (22-30) mmol/L Anion Gap 14.2 (5-15) MEQ/L BUN 39 H (7-17) mg/dL Creatinine 4.37 H (0.52-1.04) mg/dL Estimated GFR 12.4 ML/MIN Glucose 108 H (74-106) mg/dL Calcium 8.0 L (8.4-10.2) mg/dL - Progress Progress: improved, re-examined Progress Note: 10/13/23 13:52 This patient's medical issue is 1 of low to moderate complexity. The level of complexity in the workup performed is based on review of the patient's past medical history, review of the patient's outpatient laboratory results from today, review of the patient's medication list, review the patient's drug allergy list, history present illness and physical findings on examination. The patient does not want any further workup. She is agreeing to potassium as discussed in the history of present illness. She also agrees to following up tomorrow morning, 10/14/2023, as discussed in the history of present illness. 10/13/23 18:09 While the potassium is being infused but almost completed, BMP was performed. The potassium is now 3.8. Once the IV potassium is completed, we will discharge the patient to home. The patient is not required to return tomorrow morning since her potassium level is in the normal range at this time. Counseled pt/family regarding: lab results, diagnosis, need for follow-up Medical Desision Making - Independent Historian Additional History obtained from: Family - Diagnostic Testing Diagnostic test were ordered, analyzed, and reviewed by me: Yes - Risk of complications Low Risk: Low risk of morbidity from additional dx testing or treatment - Departure Departure Disposition: Home Clinical Impression: Hypokalemia Condition: Stable Critical Care Time: No Referrals: OSCAR CALVILLO DO [Primary Care Provider] - Follow up/PCP as directed Additional Instructions: Keep your dialysis appointment tomorrow at 130 on 10/14/2023.
[2023-10-13 13:27] VITALS: RESP 20; TEMP 97.1
[2023-10-13] MEDS ORDERED: K-LYTE G-TUBE ONE (13:55)
[2023-10-13] MEDS ORDERED: K-LYTE ONE (13:57)
[2023-10-13] MEDS ORDERED: POTASSIUM CHLORIDE 20 mEq IN WATER 100ML 100 ML IV ONE ×2 (13:57→16:01)
[2023-10-13] MEDS: POTASSIUM CHLORIDE 20 mEq IN WATER 100ML 20 MEQ/100 ML BAG IV SCH ×2 (14:02→16:03)
[2023-10-13 17:23] VITALS: BP 97/73; PULSE 102; O2SAT 100
[2023-10-13 18:06] LABS: ANION GAP 14.2 MEQ/L (5-15); Creatinine 1 4.37 mg/dL (0.52-1.04); EST GLOMERULAR FILTRATION RATE 12.4 ML/MIN
[2023-10-13 18:07] LABS: Potassium 3.8 mmol/L (3.5-5.1)
== END 2023-10-13 18:30 | disposition home or self-care (01) ==
LOC: ED 13:17
DX: E87.6 Hypokalemia (principal); I12.0 Hypertensive chronic kidney disease with stage 5 chronic kidney disease or end stage renal disease; N18.6 End stage renal disease; Z99.2 Dependence on renal dialysis; Z79.01 Long term (current) use of anticoagulants; Z79.891 Long term (current) use of opiate analgesic; Z79.899 Other long term (current) drug therapy; Z72.0 Tobacco use
CPT/HCPCS: 36000; 36415; 80048; 99284; J1642; J3480; A9270-GY

== ENCOUNTER 2023-10-18 15:17 | Emergency (ER) | payer MEDICARE ==
[2023-10-18 15:32] VITALS: TEMP 98.2
[2023-10-18] MEDS ORDERED: Zofran 4 MG/2 ML VIAL IV ONE (15:53)
[2023-10-18] MEDS ORDERED: SUBLIMAZE 100 MCG/2 ML IV ONE (15:53)
[2023-10-18] MEDS ORDERED: Sodium Chloride 0.9% 1000 ML 1,000 ML IV SCH (16:00)
[2023-10-18 16:11] LABS: Absolute Neutrophil Ct (ANC) 7.58 x10^3/uL (1.4-6.9); BASOPHIL % 0.3 % (0.0-0.4); Basophil (Absolute #) 0.03 x10^3/uL (0-0.4); Eosinophil % 2.1 % (0.00-5.0); Eosinophil (Absolute #) 0.25 x10^3/uL (0-0.5); Hematocrit 28.2 % (35-47); Hemoglobin 9.2 g/dL (12.0-16.0); IMMATURE GRAN # 0.07 x10^3u/L (0.00-0.03); IMMATURE GRAN % 0.6 % (0.00-0.4); Lymphocyte (Absolute #) 2.38 x10^3/uL (1.0-4.6); Lymphocytes % 20.4 % (24.0-44.0); Mean Cell Volume 91.6 fL (78-100); Mean Corpuscular Hemoglobin 29.9 pg (26-32); Mean Corpuscular Hgb Concent. 32.6 g/dL (32-36); Mean Platelet Volume 10.2 fL (7.5-11.0); Monocyte (Absolute #) 1.33 x10^3/uL (0.0-1.3); Monocytes % 11.4 % (0.0-12.0); Neutrophil % 65.2 % (36.0-66.0); Platelet Count 164 x10^3/uL (150-450); Red Blood Count 3.08 x10^6/uL (4.1-5.4); Red Cell Distribution Width 15.7 % (11.5-14.0); White Blood Count 11.6 x10^3/uL (4.0-10.5)
[2023-10-18 16:24] LABS: ALBUMIN 2.9 g/dL (3.5-5.0); ANION GAP 15.3 MEQ/L (5-15); BILIRUBIN,TOTAL 1.7 mg/dL (0.2-1.3); Calcium 7.6 mg/dL (8.4-10.2); Creatinine 1 5.68 mg/dL (0.52-1.04); Total Protein 8.3 g/dL (6.3-8.2)
[2023-10-18 16:24] LABS: HCG SERUM TEST NEGATIVE (NEGATIVE)
[2023-10-18 16:29] LABS: Potassium 2.5 mmol/L (3.5-5.1)
[2023-10-18] MEDS ORDERED: Magnesium 1 Gm / 100 Ml D5W*** 100 ML IV ONE ×4 (16:31→18:33)
[2023-10-18] MEDS ORDERED: Zofran 4 MG/2 ML VIAL ONE (16:43)
[2023-10-18] MEDS ORDERED: POTASSIUM CHLORIDE 20 mEq IN WATER 100ML 0 ML IV ONE (16:44)
[2023-10-18] MEDS ORDERED: K-LYTE PO ONE (16:54)
[2023-10-18] MEDS ORDERED: K-LYTE ONE (16:55)
[2023-10-18] MEDS: POTASSIUM CHLORIDE 20 mEq IN WATER 100ML 20 MEQ/100 ML BAG IV SCH ×2 (16:59→18:59)
--- NOTE | 2023-10-18 18:07 | XRAY ---
CLINICAL HISTORY:vomiting/abd pain COMPARISON:Prior CT Abdomen from 06/24/2023 TECHNIQUE:Contiguous, multislice, nonenhanced CT scan of the abdomen and pelvis was performed in the axial plane with multiplanar reconstructions. FINDINGS: Average sized liver measuring about 16.2 cm in craniocaudal axis showing homogeneous attenuation with no obvious focal mass lesion within the limitations of noncontrast study. No intrahepatic biliary dilatation. Gallbladder is surgically removed. Feeding tube is seen extending from the stomach with the distal tip seen in the proximal jejunal loop. Pancreas were unremarkable. Mild enlarged spleen measuring about 14 cm in craniocaudal axis showing homogeneous attenuation with no focal mass lesion. No adrenal mass. Both kidneys appear normal in size, shows normal contour and attenuation. No calculus, mass or hydronephrosis in either kidney. Status post ileocolonic anastomosis. There is probable collection seen in the midline in the epigastric region and shows apparent thickening of the ileal loop with adjacent fat stranding. Few adjacent mesenteric lymph nodes seen. No ascites. No para-aortic lymphadenopathy. There is increased soft tissue density at the umbilicus with pockets of gas within. The overlying abdominal wall appears thickened. Partially filled urinary bladder, appears free from intraluminal stones, mass or diverticular outpouching. The uterus is not visualized-surgically removed. No adnexal mass. No acute osseous abnormality or suspicious bony lesions. Visualized sections of lower chest follow up ultrasound in 6 weeks is recommended. No focal mass or consolidation. Subpleural nodule in the posterior medial segment of right lower lobe measuring about 3.4 mm. Perifissural nodule along the lateral segment of left lower lobe measuring about 4 mm. Atelectatic changes seen in the lateral segment of right middle lobe. IMPRESSION: 1. Limited organ parenchymal evaluation within the limitations of noncontrast study. 2. Feeding tube is seen extending from the stomach with the distal tip seen in the proximal jejunal loop. 3. Status post ileocolonic anastomosis. 4. There is probable collection seen in the midline in the epigastric region and shows apparent thickening of the ileal loop with adjacent fat stranding, which may represent inflammatory etiology. These are interval new findings when compared with prior study. Follow-up is suggested. 5. Mild Splenomegaly. 6. Increased soft tissue density at the umbilicus with pockets of gas within. The overlying abdominal wall appears thickened. Consider inflammatory or infectious etiology, for clinical correlation. Electronically Signed by: Terry Villafuerte MD. (10/18/2023 18:04:09 EST)
[2023-10-18] MEDS ORDERED: POTASSIUM CHLORIDE 20 mEq IN WATER 100ML 100 ML IV ONE ×2 (18:57→18:58)
--- NOTE | 2023-10-18 20:16 | ERPHSYRPT ---
- History of Present Illness Time Seen by Provider: 10/18/23 15:20 Historian: patient, family Exam Limitations: no limitations Patient Subjective Stated Complaint: Pt states "I had surgery at [facility] in february to resect my bowels and I have had issues ever since. I have blood coming from my belly and I am vomiting." Triage Nursing Assessment: Pt presented alert and oriented X 3, skin pwd. pt ambulates with an upright steady gait, able to speak in clear full sentenecs. PT has feeding tube, picc line, dialysis line, bandage on abdomen. PT has dialysis on thursday, thu and thursday for dialysis but I missed thursday and today. Pt bandage has feces on it on abdomen. 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 Patient reports multiple episodes of nonprojectile, nonbilious vomiting without hematemesis. She also reports excoriation of skin on the anterior abdominal wall around fistula and she has not been able to apply any bags and has been applying padding. Reports increased fistula output than usual. No fever or chills reported. She missed her dialysis twice this week. Denies any chest pain palpitations or shortness of breath but has generalized weakness fatigue and tiredness. Allergies/Adverse Reactions: acetaminophen [From Tylenol] Allergy (Severe, Verified 08/11/23 19:10) Swelling of Tongue and Lips THROAT SWELL AND BREATHING DIFFICULTY hydrocodone [From Lortab] Allergy (Severe, Verified 08/11/23 19:10) Swelling of Tongue and Lips natalizumab [From Tysabri] Allergy (Severe, Verified 08/11/23 19:10) Hives onion Allergy (Severe, Verified 08/11/23 19:10) Swelling of Tongue and Lips raw onion only tomato Allergy (Severe, Verified 08/11/23 19:10) Tightness of Throat latex Allergy (Intermediate, Verified 08/11/23 19:10) Hives morphine Adverse Reaction (Severe, Verified 08/11/23 19:10) makes pt mad/angry/volitle Home Medications: Apixaban [Eliquis] 5 mg PO BID 08/11/23 [History] Ferrous Sulfate 325 mg [Feosol 325 mg] 325 mg PO UD 08/11/23 [History] Omeprazole 40 mg PO DAILY 08/11/23 [History] Ondansetron ODT 4 MG [Zofran Odt 4 mg] 1 tab SL [id number] PRN 08/11/23 [History] Oxycodone HCl 5 mg PO BID 08/11/23 [History] clonazePAM [Clonazepam] 0.125 mg PO BID PRN 08/11/23 [History] Fluconazole 200 mg PO DAILY 10/18/23 [History] Hx Tetanus, Diphtheria Vaccination/Date Given: Yes Hx Influenza Vaccination/Date Given: No Hx Pneumococcal Vaccination/Date Given: No Immunizations Up to Date: No Travel Risk - International Travel Have you traveled outside of the country in past 3 weeks: No - Coronavirus Screening Are you exhibiting any of the following symptoms?: No Close contact with a COVID-19 positive Pt in past 14-21 Days: No - Vaccine Status Have you recieved a Covid-19 vaccination: Yes Break Up Worker: Unknown - Vaccination Dates Dates if Unknown: UNKNOWN - Review of Systems Constitutional: Fatigue, Weakness Eyes: No Symptoms Ears, Nose, & Throat: No Symptoms Respiratory: No Symptoms Cardiac: No Symptoms Abdominal/Gastrointestinal: Abdominal Pain, Nausea, Vomiting, Diarrhea Genitourinary Symptoms: No Symptoms Musculoskeletal: Myalgias Skin: Cellulitis Neurological: No Symptoms Psychological: Anxiety, Depression Endocrine: No Symptoms Hematologic/Lymphatic: No Symptoms - Past Medical History Pertinent Past Medical History: Yes Neurological History: Migraines, Seizures ENT History: No Pertinent History Cardiac History: Deep Vein Thrombosis Respiratory History: Pulmonary Embolism Endocrine Medical History: No Pertinent History Musculoskeletal History: No Pertinent History GI Medical History: Crohns Disease, GERD, Pancreatitis, Ulcer History: Renal Disease Psycho-Social History: Anxiety, Bipolar, Depression Female Reproductive Disorders: Fibroids, Uterine Cancer Other Medical History: unknown source of acute kidney failure 04/28/2022. 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 - Past Surgical History Past Surgical History: Yes Neuro Surgical History: No Pertinent History Cardiac: No Pertinent History Respiratory: No Pertinent History Gastrointestinal: Cholecystectomy, Other Genitourinary: No Pertinent History Musculoskeletal: Orthopedic Surgery Female Surgical History: Hysterectomy, Dilation & Curettage, Other Other Surgical History: intestine resect 4-5 times, pins R foot, multiple port placement - Social History Smoking Status: Light tobacco smoker Exposure to second hand smoke: Yes Drug Use: marijuana Patient Lives Alone: No - Female History Hx Last Menstrual Period: hysterectomy Hx Now: (unkn) - Nursing Vital Signs Nursing Vital Signs: Initial Vital Signs Temperature 98.2 F 10/18/23 15:26 Pulse Rate 93 H 10/18/23 15:26 Respiratory Rate 20 10/18/23 15:26 Blood Pressure 107/72 10/18/23 15:26 O2 Sat by Pulse Oximetry 92 L 10/18/23 15:26 Pain Scale Pain Intensity 0 - Physical Exam General Appearance: no apparent distress, alert Eye Exam: PERRL/EOMI, eyes nml inspection Ears, Nose, Throat Exam: normal ENT inspection, TMs normal, pharynx normal Neck Exam: normal inspection, non-tender, supple, full range of motion Respiratory Exam: normal breath sounds, lungs clear Cardiovascular Exam: regular rate/rhythm, normal heart sounds Gastrointestinal/Abdomen Exam: soft, normal bowel sounds, tenderness (Mild generalized), other (Anterior abdominal wall fistula upper abdomen with skin excoriation with fecal matter around.) Back Exam: normal inspection Extremity Exam: normal inspection, normal range of motion Neurologic Exam: alert, oriented x 3, cooperative Skin Exam: normal color SpO2 Interpretation: normal SpO2: 95 O2 Delivery: Room Air Ordered Tests: Medication Summary Discontinued Medications Generic Name Dose Route Start Last Admin Trade Name Yasmany PRN Reason Stop Dose Admin Fentanyl Citrate 50 mcg 10/18/23 15:53 10/18/23 16:31 Fentanyl Citrate 100 Mcg/2 Ml* Vial IV 10/18/23 15:54 Not Given STAT ONE Fentanyl Citrate 25 mcg 10/19/23 01:47 10/19/23 01:52 Fentanyl Citrate 100 Mcg/2 Ml* Vial IV 10/19/23 01:48 25 mcg STAT ONE Administration Fentanyl Citrate Confirm 10/19/23 01:50 Fentanyl Citrate 100 Mcg/2 Ml* Vial Administered 10/19/23 01:51 Dose 100 mcg .ROUTE .STK-MED ONE Sodium Chloride 1,000 mls @ 100 mls/hr 10/18/23 16:00 10/18/23 19:15 Sodium Chloride 0.9% 1000 Ml IV 11/17/23 15:59 Not Given .Q10H ROMULO Potassium Chloride 20 meq in 100 mls @ 50 mls/hr 10/18/23 16:45 10/18/23 18:59 Potassium Chloride 20 Meq In Water 100ml IV 10/18/23 20:44 50 mls/hr Q2H ROMULO Administration Magnesium Sulfate/Dextrose 100 mls @ 200 mls/hr 10/18/23 16:31 10/18/23 16:59 Magnesium 1 Gm / 100 Ml D5w IV 10/18/23 17:00 200 mls/hr STAT ONE Administration Magnesium Sulfate/Dextrose Confirm 10/18/23 16:43 Magnesium 1 Gm / 100 Ml D5w Administered 10/18/23 16:44 Dose 100 mls @ ud IV .STK-MED ONE Magnesium Sulfate/Dextrose 100 mls @ 200 mls/hr 10/18/23 17:11 10/18/23 18:34 Magnesium 1 Gm / 100 Ml D5w IV 10/18/23 17:40 200 mls/hr STAT ONE Administration Magnesium Sulfate/Dextrose Confirm 10/18/23 18:33 Magnesium 1 Gm / 100 Ml D5w Administered 10/18/23 18:34 Dose 100 mls @ ud IV .STK-MED ONE Potassium Chloride Confirm 10/18/23 16:44 Potassium Chloride 20 Meq In Water 100ml Administered 10/18/23 16:45 Dose 100 mls @ ud IV .STK-MED ONE Potassium Chloride Confirm 10/18/23 18:57 Potassium Chloride 20 Meq In Water 100ml Administered 10/18/23 18:58 Dose 100 mls @ ud IV .STK-MED ONE Potassium Chloride Confirm 10/18/23 18:58 Potassium Chloride 20 Meq In Water 100ml Administered 10/18/23 18:59 Dose 100 mls @ ud IV .STK-MED ONE Ondansetron HCl 4 mg 10/18/23 15:53 10/18/23 16:58 Ondansetron Hcl 4 Mg/2 Ml Vial IV 10/18/23 15:54 4 mg STAT ONE Administration Ondansetron HCl Confirm 10/18/23 16:43 Ondansetron Hcl 4 Mg/2 Ml Vial Administered 10/18/23 16:44 Dose 4 mg .ROUTE .STK-MED ONE Ondansetron HCl 4 mg 10/19/23 01:47 10/19/23 01:52 Ondansetron Hcl 4 Mg/2 Ml Vial IV 10/19/23 01:48 4 mg STAT ONE Administration Ondansetron HCl Confirm 10/19/23 01:49 Ondansetron Hcl 4 Mg/2 Ml Vial Administered 10/19/23 01:50 Dose 4 mg .ROUTE .STK-MED ONE Potassium Bicarbonate 50 meq 10/18/23 16:54 10/18/23 16:58 Potassium Bicarbonate 25 Meq Tab PO 10/18/23 16:55 50 meq STAT ONE Administration Potassium Bicarbonate Confirm 10/18/23 16:55 Potassium Bicarbonate 25 Meq Tab Administered 10/18/23 16:56 Dose 50 meq .ROUTE .STK-MED ONE Lab/Rad Data: Laboratory Result Diagrams 10/18/23 15:53 10/18/23 16:00 Laboratory Results 10/18/23 10/18/23 10/18/23 Range/Units 22:00 16:31 16:24 WBC (4.0-10.5) x10^3/uL RBC (4.1-5.4) x10^6/uL Hgb (12.0-16.0) g/dL Hct (35-47) % MCV (78-100) fL MCH (26-32) pg MCHC (32-36) g/dL RDW (11.5-14.0) % Plt Count (150-450) x10^3/uL MPV (7.5-11.0) fL Gran % (36.0-66.0) % Immature Gran % (Auto) (0.00-0.4) % Nucleat RBC Rel Count (0.00-0.1) % Eos # (Auto) (0-0.5) x10^3/uL Immature Gran # (Auto) (0.00-0.03) x10^3u/L Absolute Lymphs (auto) (1.0-4.6) x10^3/uL Absolute Monos (auto) (0.0-1.3) x10^3/uL Absolute Nucleated RBC (0.00-0.01) x10^3u/L Lymphocytes % (24.0-44.0) % Monocytes % (0.0-12.0) % Eosinophils % (0.00-5.0) % Basophils % (0.0-0.4) % Absolute Granulocytes (1.4-6.9) x10^3/uL Basophils # (0-0.4) x10^3/uL Sodium (137-145) mmol/L Potassium (3.5-5.1) mmol/L Chloride (98-107) mmol/L Carbon Dioxide (22-30) mmol/L Anion Gap (5-15) MEQ/L BUN (7-17) mg/dL Creatinine (0.52-1.04) mg/dL Estimated GFR ML/MIN Glucose (74-106) mg/dL Calcium (8.4-10.2) mg/dL Magnesium 1.2 L (1.6-2.3) mg/dL Total Bilirubin (0.2-1.3) mg/dL AST (14-36) U/L ALT (0-35) U/L Alkaline Phosphatase (38-126) U/L Serum Total Protein (6.3-8.2) g/dL Albumin (3.5-5.0) g/dL Lipase (23-300) U/L Serum HCG, Qual NEGATIVE (NEGATIVE) Urine Color Dark Yellow A (Yellow) Urine Appearance Clear (Clear) Urine pH 5.5 (4.6-8.0) Ur Specific [place] 1.020 (1.005-1.030) Urine Protein 100 A (Negative) Urine Glucose (UA) Negative (Negative) mg/dL Urine Ketones Trace A (Negative) Urine Blood Moderate A (Negative) Urine Nitrite Negative (Negative) Urine Bilirubin Small A (Negative) Urine Urobilinogen 1.0 A (0.2) mg/dL Ur Leukocyte Esterase Trace A (Negative) U Hyaline Cast (Auto) 6-10 A (0-2) /LPF Urine Microscopic RBC 21-50 A (0-5) /HPF Urine Microscopic WBC 3-5 (0-5) /HPF Ur Epithelial Cells None Seen (None Seen) /HPF Urine Bacteria None Seen (None Seen) /HPF Urine Culture Reflexed YES (NO) 10/18/23 10/18/23 Range/Units 16:00 15:53 WBC 11.6 H (4.0-10.5) x10^3/uL RBC 3.08 L (4.1-5.4) x10^6/uL Hgb 9.2 L (12.0-16.0) g/dL Hct 28.2 L (35-47) % MCV 91.6 (78-100) fL MCH 29.9 (26-32) pg MCHC 32.6 (32-36) g/dL RDW 15.7 H (11.5-14.0) % Plt Count 164 (150-450) x10^3/uL MPV 10.2 (7.5-11.0) fL Gran % 65.2 (36.0-66.0) % Immature Gran % (Auto) 0.6 H (0.00-0.4) % Nucleat RBC Rel Count 0.0 (0.00-0.1) % Eos # (Auto) 0.25 (0-0.5) x10^3/uL Immature Gran # (Auto) 0.07 H (0.00-0.03) x10^3u/L Absolute Lymphs (auto) 2.38 (1.0-4.6) x10^3/uL Absolute Monos (auto) 1.33 H (0.0-1.3) x10^3/uL Absolute Nucleated RBC 0.00 (0.00-0.01) x10^3u/L Lymphocytes % 20.4 L (24.0-44.0) % Monocytes % 11.4 (0.0-12.0) % Eosinophils % 2.1 (0.00-5.0) % Basophils % 0.3 (0.0-0.4) % Absolute Granulocytes 7.58 H (1.4-6.9) x10^3/uL Basophils # 0.03 (0-0.4) x10^3/uL Sodium 127 L (137-145) mmol/L Potassium 2.5 L* (3.5-5.1) mmol/L Chloride 92 L (98-107) mmol/L Carbon Dioxide 22 (22-30) mmol/L Anion Gap 15.3 H (5-15) MEQ/L BUN 62 H (7-17) mg/dL Creatinine 5.68 H (0.52-1.04) mg/dL Estimated GFR 9.0 ML/MIN Glucose 107 H (74-106) mg/dL Calcium 7.6 L (8.4-10.2) mg/dL Magnesium (1.6-2.3) mg/dL Total Bilirubin 1.70 H (0.2-1.3) mg/dL AST 44 H (14-36) U/L ALT 27 (0-35) U/L Alkaline Phosphatase 424 H (38-126) U/L Serum Total Protein 8.3 H (6.3-8.2) g/dL Albumin 2.9 L (3.5-5.0) g/dL Lipase 457 H (23-300) U/L Serum HCG, Qual (NEGATIVE) Urine Color (Yellow) Urine Appearance (Clear) Urine pH (4.6-8.0) Ur Specific [place] (1.005-1.030) Urine Protein (Negative) Urine Glucose (UA) (Negative) mg/dL Urine Ketones (Negative) Urine Blood (Negative) Urine Nitrite (Negative) Urine Bilirubin (Negative) Urine Urobilinogen (0.2) mg/dL Ur Leukocyte Esterase (Negative) U Hyaline Cast (Auto) (0-2) /LPF Urine Microscopic RBC (0-5) /HPF Urine Microscopic WBC (0-5) /HPF Ur Epithelial Cells (None Seen) /HPF Urine Bacteria (None Seen) /HPF Urine Culture Reflexed (NO) - Progress Progress: improved Progress Note: 10/18/23 23:27 43-year-old is evaluated in the ER for abdominal pain with vomiting and diarrhea. Patient has a history of multiple abdominal surgeries with anterior abdominal wall fistula with recent increased output. Patient blood pressure is borderline around 90s and given gentle hydration. Baseline workup showed white count of 11, potassium of 2.5, sodium of 127 and magnesium of 1.2. She is given oral and IV replacement for electrolytes. Has a lipase of [address] abdomen pelvis without contrast which showed increased ileal stranding/collection. I have discussed with Dr. Walter partner for Dr. David at [facility] at 10:20 PM who has reviewed today's imaging and compared with imaging done over there and do not think patient needs any surgical intervention and more of a medical and nutritional issues causing her symptoms. She needs to have nephrology consultation for her continuing electrolyte imbalances as patient was seen here 3 days ago with hyponatremia. I have discussed with Dr. Rincon at [facility], reviewed history, workup and since most of workup is done, he recommended discussing with hospitalist and I have discussed with hospitalist ROSEMARIE Lizarraga, reviewed history, workup and patient is accepted. I have discussed the results of workup, plan of transfer with patient and family who understand and agree with it. Counseled pt/family regarding: lab results, diagnosis, need for follow-up, rad results Medical Desision Making - Independent Historian Additional History obtained from: Mother, Child - Discussion of managment Care discussed with:: specialist (Dr. Walter at 2220, Dr. Rincon at 2320) Reviewed:: Test results Agreed on:: Treatment plan Will see patient: in ED - Diagnostic Testing Diagnostic test were ordered, analyzed, and reviewed by me: Yes Radiological Interpretation: Reviewed by me, Teleradiologist Report - Risk of complications The pt has a high risk of morbidity or mortality based on: Decision regarding hospitilization or escalation of hosp level of care - Departure Departure Disposition: Transfer Clinical Impression: 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, Abdominal pain, Vomiting, Hyponatremia, Hypokalemia, Hypomagnesemia, Missed dialysis Condition: Stable Critical Care Time: No Referrals: OSCAR CALVILLO DO [Primary Care Provider] - Follow up/PCP as directed
[2023-10-18 22:57] LABS: ADD URINE CULTURE? YES (NO); Appearance Clear (Clear); Bacteria None Seen /HPF (None Seen); Bilirubin Small (Negative); Blood Moderate (Negative); Epithelial Cells None Seen /HPF (None Seen); Glucose, Urine Negative (Negative); Ketones Trace (Negative); Leukocyte Esterase Trace (Negative); Nitrite Negative (Negative); Ph 5.5 (4.6-8.0); Protein,Urine Dip 100 (Negative); RBC 21-50 /HPF (0-5)
[2023-10-19] MEDS ORDERED: SUBLIMAZE 100 MCG/2 ML IV ONE (01:47)
[2023-10-19] MEDS ORDERED: Zofran 4 MG/2 ML VIAL IV ONE (01:47)
[2023-10-19 01:48] VITALS: BP 104/64; PULSE 103; RESP 15; O2SAT 95
[2023-10-19] MEDS ORDERED: Zofran 4 MG/2 ML VIAL ONE (01:49)
[2023-10-19] MEDS ORDERED: SUBLIMAZE 100 MCG/2 ML ONE (01:50)
== END 2023-10-19 02:16 | disposition short-term general hospital (02) ==
LOC: ED 15:17
DX: K50.913 Crohn's disease, unspecified, with fistula (principal); R10.9 Unspecified abdominal pain; R11.10 Vomiting, unspecified; E87.1 Hypo-osmolality and hyponatremia; E87.6 Hypokalemia; E83.42 Hypomagnesemia; Z99.2 Dependence on renal dialysis; Z91.158 Patient's noncompliance with renal dialysis for other reason; R53.83 Other fatigue; N18.6 End stage renal disease; Z79.01 Long term (current) use of anticoagulants; Z79.891 Long term (current) use of opiate analgesic; Z79.899 Other long term (current) drug therapy; Z72.0 Tobacco use
CPT/HCPCS: 36415; 74176; 80053; 81001; 83690; 83735; 84703; 85025; 87077; 87086; 87186; 96365; 96366; 96374; 96375; 96376; 99285; J2405; J3010; J3475; J3480; A9270-GY

== ENCOUNTER 2023-11-21 15:10 | Emergency (ER) | payer MEDICARE ==
--- NOTE | 2023-11-21 15:19 | ERPHSYRPT ---
- History of Present Illness Time Seen by Provider: 11/21/23 15:18 Historian: patient, family Exam Limitations: no limitations Physician History: pt is dialysis pt and has been weak since her treatment yesterday but developing vomiting and abd pain more than usual. She has hx hypokalemia at times. 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 nondistended. neuro and mental status intact. father was independent source to confirm Hx in ER. Discussed risk/benefits of testing with pt and father including CT abd, CBC, CMP, lactate, shaggy, lipase, HCG, Tx with Dilaudid and zofran and they wish to proceed, these are ordered. results discussed. Timing/Duration: yesterday Activities at Onset: none Quality: cramping, sharpness Abdominal Pain Onset Location: generalized abdomen Pain Radiation: no radiation Severity of Pain-Max: moderate Severity of Pain-Current: moderate Modifying Factors: Improves With: vomiting Associated Symptoms: nausea, vomiting Previous symptoms: different symptoms, recently seen, recently treated Allergies/Adverse Reactions: acetaminophen [From Tylenol] Allergy (Severe, Verified 11/21/23 15:26) Swelling of Tongue and Lips THROAT SWELL AND BREATHING DIFFICULTY hydrocodone [From Lortab] Allergy (Severe, Verified 11/21/23 15:26) Swelling of Tongue and Lips natalizumab [From Tysabri] Allergy (Severe, Verified 11/21/23 15:26) Hives onion Allergy (Severe, Verified 11/21/23 15:26) Swelling of Tongue and Lips raw onion only tomato Allergy (Severe, Verified 11/21/23 15:26) Tightness of Throat latex Allergy (Intermediate, Verified 11/21/23 15:26) Hives morphine Adverse Reaction (Severe, Verified 11/21/23 15:26) makes pt mad/angry/volitle Home Medications: Apixaban [Eliquis] 5 mg PO BID 08/11/23 [History] Ferrous Sulfate 325 mg [Feosol 325 mg] 325 mg PO UD 08/11/23 [History] Ondansetron ODT 4 MG [Zofran Odt 4 mg] 1 tab SL Q8HPRN PRN 08/11/23 [History] Oxycodone HCl 5 mg PO BID 08/11/23 [History] clonazePAM [Clonazepam] 0.125 mg PO BID PRN 08/11/23 [History] Fluconazole 200 mg PO UD 10/18/23 [History] Fludrocortisone Acetate 0.1 mg PO BID 11/21/23 [History] Midodrine HCl [Proamatine] 15 mg PO Q6H 11/21/23 [History] Potassium Chloride in Water [Potassium Cl 10 Meq/100 ml Fidelia] 15 meq PO DAILY 11/21/23 [History] Hx Tetanus, Diphtheria Vaccination/Date Given: Yes Hx Influenza Vaccination/Date Given: No Hx Pneumococcal Vaccination/Date Given: No Travel Risk - Vaccine Status Have you recieved a Covid-19 vaccination: Yes Tip Stitcher: Unknown - Vaccination Dates Dates if Unknown: UNKNOWN - Review of Systems Constitutional: No Fever, No Chills Eyes: No Symptoms Ears, Nose, & Throat: No Symptoms Respiratory: No Cough, No Dyspnea Cardiac: No Chest Pain, No Edema, No Syncope Abdominal/Gastrointestinal: Abdominal Pain, Nausea, Vomiting, No Diarrhea Genitourinary Symptoms: No Dysuria Musculoskeletal: No Back Pain, No Neck Pain Skin: No Rash Neurological: No Dizziness, No Focal Weakness, No Sensory Changes Psychological: No Symptoms Endocrine: No Symptoms Hematologic/Lymphatic: No Symptoms Immunological/Allergic: No Symptoms All Other Systems: Reviewed and Negative - Past Medical History Pertinent Past Medical History: Yes Neurological History: Migraines, Seizures ENT History: No Pertinent History Cardiac History: Deep Vein Thrombosis Respiratory History: Pulmonary Embolism Endocrine Medical History: No Pertinent History Musculoskeletal History: No Pertinent History GI Medical History: Crohns Disease, GERD, Pancreatitis, Ulcer History: Renal Disease Psycho-Social History: Anxiety, Bipolar, Depression Female Reproductive Disorders: Fibroids, Uterine Cancer Other Medical History: unknown source of acute kidney failure 04/28/2022. 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 - Past Surgical History Past Surgical History: Yes Neuro Surgical History: No Pertinent History Cardiac: No Pertinent History Respiratory: No Pertinent History Gastrointestinal: Cholecystectomy, Other Genitourinary: No Pertinent History Musculoskeletal: Orthopedic Surgery Female Surgical History: Hysterectomy, Dilation & Curettage, Other Other Surgical History: intestine resect 4-5 times, pins R foot, multiple port placement - Social History Smoking Status: Light tobacco smoker Exposure to second hand smoke: Yes Drug Use: marijuana Patient Lives Alone: No - Nursing Vital Signs Nursing Vital Signs: Initial Vital Signs Temperature 97.3 F 11/21/23 15:17 Pulse Rate 95 H 11/21/23 15:17 Blood Pressure 99/64 11/21/23 15:17 O2 Sat by Pulse Oximetry 97 11/21/23 15:17 Pain Scale Pain Intensity 6 - Physical Exam General Appearance: no apparent distress, alert Eye Exam: PERRL/EOMI, eyes nml inspection Ears, Nose, Throat Exam: normal ENT inspection, pharynx normal, moist mucous membranes Neck Exam: normal inspection, non-tender, supple, full range of motion Respiratory Exam: normal breath sounds, lungs clear, No respiratory distress Cardiovascular Exam: regular rate/rhythm, normal heart sounds Gastrointestinal/Abdomen Exam: soft, tenderness, guarding, No distention, No mass Pelvic Exam: deferred Rectal Exam: deferred Back Exam: normal inspection, normal range of motion, No CVA tenderness, No vertebral tenderness Extremity Exam: normal inspection, normal range of motion, pelvis stable Neurologic Exam: alert, oriented x 3, cooperative, normal mood/affect, nml cerebellar function, sensation nml, No motor deficits Skin Exam: normal color, warm, dry SpO2 Interpretation: normal SpO2: 97 O2 Delivery: Room Air - Course Nursing assessment & vital signs reviewed: Yes - CT Exams Abdomen/Pelvis CT Interpretation: Tele-radiologist Report, Other (ileal loop thickening right umbilical loculi possible inflammatory. ) Ordered Tests: Active Orders 24 hr Category Date Time Status IV Insertion STAT Care 11/21/23 15:42 Active Telemetry q4h Care 11/21/23 17:54 Active ABDOMEN AND PELVIS W/0 CONTRAS [CT] Stat Exams 11/21/23 15:43 Completed AMYLASE Stat Lab 11/21/23 15:50 Completed CBC W DIFF Stat Lab 11/21/23 15:50 Completed CMP Stat Lab 11/21/23 15:50 Completed CULTURE,URINE Stat Lab 11/21/23 20:17 Received HCG QUALITATIVE, SERUM Stat Lab 11/21/23 15:50 Completed K [Potassium] Stat Lab 11/21/23 20:30 Completed LIPASE Stat Lab 11/21/23 15:50 Completed Lactic Acid Stat Lab 11/21/23 15:42 Completed UA W/RFX UR CULTURE Stat Lab 11/21/23 20:17 Completed Medication Summary Generic Name Dose Route Start Last Admin Trade Name Freq PRN Reason Stop Dose Admin Sodium Chloride 1,000 mls @ 100 mls/hr 11/21/23 18:00 11/21/23 17:59 Sodium Chloride 0.9% 1000 Ml IV 12/21/23 17:59 100 mls/hr .Q10H ROMULO Administration Discontinued Medications Generic Name Dose Route Start Last Admin Trade Name Yasmany PRN Reason Stop Dose Admin Hydromorphone HCl 1 mg 11/21/23 15:44 11/21/23 16:00 Hydromorphone 1 Mg/1ml Inj IV 11/21/23 15:45 1 mg STAT ONE Administration Hydromorphone HCl Confirm 11/21/23 15:58 Hydromorphone 1 Mg/1ml Inj Administered 11/21/23 15:59 Dose 1 mg .ROUTE .STK-MED ONE Potassium Chloride 20 meq in 100 mls @ 50 mls/hr 11/21/23 17:54 11/21/23 17:59 Potassium Chloride 20 Meq In Water 100ml IV 11/21/23 19:53 50 mls/hr STAT ONE Administration Potassium Chloride Confirm 11/21/23 17:55 Potassium Chloride 20 Meq In Water 100ml Administered 11/21/23 17:56 Dose 100 mls @ ud IV .STK-MED ONE Ondansetron HCl 4 mg 11/21/23 15:45 11/21/23 16:00 Ondansetron Hcl 4 Mg/2 Ml Vial IV 11/21/23 15:46 4 mg STAT ONE Administration Ondansetron HCl Confirm 11/21/23 15:58 Ondansetron Hcl 4 Mg/2 Ml Vial Administered 11/21/23 15:59 Dose 4 mg .ROUTE .STK-MED ONE Ondansetron HCl 4 mg 11/21/23 18:34 11/21/23 18:39 Ondansetron Hcl 4 Mg/2 Ml Vial IV 11/21/23 18:35 4 mg STAT ONE Administration Ondansetron HCl Confirm 11/21/23 18:36 Ondansetron Hcl 4 Mg/2 Ml Vial Administered 11/21/23 18:37 Dose 4 mg .ROUTE .STK-MED ONE Lab/Rad Data: Laboratory Result Diagrams 11/21/23 15:50 11/21/23 20:30 Laboratory Results 0211/21/23 11/21/23 Range/Units 20:30 20:17 15:50 WBC (4.0-10.5) x10^3/uL RBC (4.1-5.4) x10^6/uL Hgb (12.0-16.0) g/dL Hct (35-47) % MCV (78-100) fL MCH (26-32) pg MCHC (32-36) g/dL RDW (11.5-14.0) % Plt Count (150-450) x10^3/uL MPV (7.5-11.0) fL Gran % (36.0-66.0) % Immature Gran % (Auto) (0.00-0.4) % Nucleat RBC Rel Count (0.00-0.1) % Eos # (Auto) (0-0.5) x10^3/uL Immature Gran # (Auto) (0.00-0.03) x10^3u/L Absolute Lymphs (auto) (1.0-4.6) x10^3/uL Absolute Monos (auto) (0.0-1.3) x10^3/uL Absolute Nucleated RBC (0.00-0.01) x10^3u/L Lymphocytes % (24.0-44.0) % Monocytes % (0.0-12.0) % Eosinophils % (0.00-5.0) % Basophils % (0.0-0.4) % Absolute Granulocytes (1.4-6.9) x10^3/uL Basophils # (0-0.4) x10^3/uL Sodium (137-145) mmol/L Potassium 2.6 L* D (3.5-5.1) mmol/L Chloride (98-107) mmol/L Carbon Dioxide (22-30) mmol/L Anion Gap (5-15) MEQ/L BUN (7-17) mg/dL Creatinine (0.52-1.04) mg/dL Estimated GFR ML/MIN Glucose (74-106) mg/dL Lactic Acid (0.4-2.0) Calcium (8.4-10.2) mg/dL Total Bilirubin (0.2-1.3) mg/dL AST (14-36) U/L ALT (0-35) U/L Alkaline Phosphatase (38-126) U/L Serum Total Protein (6.3-8.2) g/dL Albumin (3.5-5.0) g/dL Amylase (30-110) U/L Lipase (23-300) U/L Serum HCG, Qual NEGATIVE (NEGATIVE) Urine Color Dark Yellow A (Yellow) Urine Appearance Cloudy A (Clear) Urine pH 6.0 (4.6-8.0) Ur Specific [place] 1.015 (1.005-1.030) Urine Protein 100 A (Negative) Urine Glucose (UA) Negative (Negative) mg/dL Urine Ketones Trace A (Negative) Urine Blood Moderate A (Negative) Urine Nitrite Negative (Negative) Urine Bilirubin Negative (Negative) Urine Urobilinogen 0.2 (0.2) mg/dL Ur Leukocyte Esterase Small A (Negative) U Hyaline Cast (Auto) 6-10 A (0-2) /LPF Urine Microscopic RBC 21-50 A (0-5) /HPF Urine Microscopic WBC 6-10 A (0-5) /HPF Ur Epithelial Cells Few (None Seen) /HPF Urine Bacteria None Seen (None Seen) /HPF Urine Culture Reflexed YES (NO) 11/21/23 11/21/23 11/21/23 Range/Units 15:50 15:50 15:42 WBC 3.9 L (4.0-10.5) x10^3/uL RBC 2.96 L (4.1-5.4) x10^6/uL Hgb 8.6 L (12.0-16.0) g/dL Hct 26.3 L (35-47) % MCV 88.9 (78-100) fL MCH 29.1 (26-32) pg MCHC 32.7 (32-36) g/dL RDW 16.2 H (11.5-14.0) % Plt Count 112 L (150-450) x10^3/uL MPV 10.4 (7.5-11.0) fL Gran % 64.2 (36.0-66.0) % Immature Gran % (Auto) 0.3 (0.00-0.4) % Nucleat RBC Rel Count 0.0 (0.00-0.1) % Eos # (Auto) 0.01 (0-0.5) x10^3/uL Immature Gran # (Auto) 0.01 (0.00-0.03) x10^3u/L Absolute Lymphs (auto) 0.95 L (1.0-4.6) x10^3/uL Absolute Monos (auto) 0.41 (0.0-1.3) x10^3/uL Absolute Nucleated RBC 0.00 (0.00-0.01) x10^3u/L Lymphocytes % 24.6 (24.0-44.0) % Monocytes % 10.6 (0.0-12.0) % Eosinophils % 0.3 (0.00-5.0) % Basophils % 0.0 (0.0-0.4) % Absolute Granulocytes 2.48 (1.4-6.9) x10^3/uL Basophils # 0 (0-0.4) x10^3/uL Sodium 135 L (137-145) mmol/L Potassium 1.9 L* (3.5-5.1) mmol/L Chloride 97 L (98-107) mmol/L Carbon Dioxide 31 H (22-30) mmol/L Anion Gap 8.8 (5-15) MEQ/L BUN 13 (7-17) mg/dL Creatinine 2.03 H (0.52-1.04) mg/dL Estimated GFR 31.0 ML/MIN Glucose 97 (74-106) mg/dL Lactic Acid 0.9 (0.4-2.0) Calcium 7.2 L (8.4-10.2) mg/dL Total Bilirubin 2.10 H (0.2-1.3) mg/dL AST 30 (14-36) U/L ALT 21 (0-35) U/L Alkaline Phosphatase 238 H (38-126) U/L Serum Total Protein 7.7 (6.3-8.2) g/dL Albumin 2.8 L (3.5-5.0) g/dL Amylase 59 (30-110) U/L Lipase 57 (23-300) U/L Serum HCG, Qual (NEGATIVE) Urine Color (Yellow) Urine Appearance (Clear) Urine pH (4.6-8.0) Ur Specific [place] (1.005-1.030) Urine Protein (Negative) Urine Glucose (UA) (Negative) mg/dL Urine Ketones (Negative) Urine Blood (Negative) Urine Nitrite (Negative) Urine Bilirubin (Negative) Urine Urobilinogen (0.2) mg/dL Ur Leukocyte Esterase (Negative) U Hyaline Cast (Auto) (0-2) /LPF Urine Microscopic RBC (0-5) /HPF Urine Microscopic WBC (0-5) /HPF Ur Epithelial Cells (None Seen) /HPF Urine Bacteria (None Seen) /HPF Urine Culture Reflexed (NO) - Progress Progress: improved, re-examined Progress Note: 11/21/23 17:57 discussed risks benefits of K rider with pt and family roverto on dialysis and they wish to proceed. 11/21/23 20:30 waiting for repeat K and this is taking longer in the evaluation. 11/21/23 20:55 K is better, but discussed consulting hospitalist to consider admission for AB with CT inflammation concern with family and pt and they wish to proceed. 11/21/23 21:07 Consulted hospitalist and he favors not to admit here since she might need dialysis. Will try another hospital but this will take time. 11/21/23 21:31 Consulted [facility] transferr service and they accepted for transfer - to Dr. Rincon Discussed with Dr.: Other (Dr. Rincon [facility] ER consulted ) Counseled pt/family regarding: lab results, diagnosis, need for follow-up, rad results Medical Desision Making - Independent Historian Additional History obtained from: Father - Discussion of managment Reviewed:: Test results, Need for additional workup Agreed on:: Treatment plan, need for follow-up, decision to admit Will see patient: in ED - Diagnostic Testing Diagnostic test were ordered, analyzed, and reviewed by me: Yes Radiological Interpretation: Reviewed by me, Teleradiologist Report - Risk of complications The pt has a mod risk of morbidity or mortality based on: Need for prescription drug management The pt has a high risk of morbidity or mortality based on: Decision regarding hospitilization or escalation of hosp level of care - Departure Departure Disposition: Transfer Clinical Impression: hypokalemia and abdominal infection Condition: Good Critical Care Time: No Referrals: OSCAR CALVILLO DO [Primary Care Provider] - Follow up/PCP as directed
[2023-11-21 15:26] VITALS: TEMP 97.3
[2023-11-21] MEDS ORDERED: Hydromorphone 1 mg/ml Injection IV ONE (15:44)
[2023-11-21] MEDS ORDERED: Zofran 4 MG/2 ML VIAL IV ONE ×2 (15:45→18:34)
[2023-11-21] MEDS ORDERED: Zofran 4 MG/2 ML VIAL ONE ×2 (15:58→18:36)
[2023-11-21] MEDS ORDERED: Hydromorphone 1 mg/ml Injection ONE (15:58)
[2023-11-21 16:00] LABS: Absolute Neutrophil Ct (ANC) 2.48 x10^3/uL (1.4-6.9); Basophil (Absolute #) 0 x10^3/uL (0-0.4); Eosinophil % 0.3 % (0.00-5.0); Eosinophil (Absolute #) 0.01 x10^3/uL (0-0.5); Hematocrit 26.3 % (35-47); Hemoglobin 8.6 g/dL (12.0-16.0); IMMATURE GRAN # 0.01 x10^3u/L (0.00-0.03); IMMATURE GRAN % 0.3 % (0.00-0.4); Lymphocyte (Absolute #) 0.95 x10^3/uL (1.0-4.6); Lymphocytes % 24.6 % (24.0-44.0); Mean Cell Volume 88.9 fL (78-100); Mean Corpuscular Hemoglobin 29.1 pg (26-32); Mean Corpuscular Hgb Concent. 32.7 g/dL (32-36); Mean Platelet Volume 10.4 fL (7.5-11.0); Monocyte (Absolute #) 0.41 x10^3/uL (0.0-1.3); Monocytes % 10.6 % (0.0-12.0); Neutrophil % 64.2 % (36.0-66.0); Platelet Count 112 x10^3/uL (150-450); Red Blood Count 2.96 x10^6/uL (4.1-5.4); Red Cell Distribution Width 16.2 % (11.5-14.0); White Blood Count 3.9 x10^3/uL (4.0-10.5)
[2023-11-21 16:14] LABS: ALBUMIN 2.8 g/dL (3.5-5.0); ANION GAP 8.8 MEQ/L (5-15); BILIRUBIN,TOTAL 2.1 mg/dL (0.2-1.3); Calcium 7.2 mg/dL (8.4-10.2); Creatinine 1 2.03 mg/dL (0.52-1.04); Total Protein 7.7 g/dL (6.3-8.2)
[2023-11-21 16:19] LABS: HCG SERUM TEST NEGATIVE (NEGATIVE)
[2023-11-21 16:21] LABS: Potassium 1.9 mmol/L (3.5-5.1)
[2023-11-21] MEDS ORDERED: POTASSIUM CHLORIDE 20 mEq IN WATER 100ML 20 MEQ/100 ML BAG IV ONE (17:54)
[2023-11-21] MEDS ORDERED: POTASSIUM CHLORIDE 20 mEq IN WATER 100ML 100 ML IV ONE (17:55)
[2023-11-21] MEDS ORDERED: Sodium Chloride 0.9% 1000 ML 1,000 ML ONE (17:55)
[2023-11-21] MEDS ORDERED: Sodium Chloride 0.9% 1000 ML 1,000 ML IV SCH (18:00)
--- NOTE | 2023-11-21 18:20 | XRAY ---
CLINICAL HISTORY: abd pain/tenderness TECHNIQUE: Contiguous, multislice, nonenhanced CT scan of the abdomen and pelvis was performed in the axial plane with multiplanar reconstructions. COMPARISON: 10/18/2023 FINDINGS: Basal thoracic cuts: Stil seen basal atelectatic bands and small fissural and subpleural nodules with largest measuring 4 mm at left lower lung lobe. Mild pericardial thicekning is still seen. Average sized liver measuring about 14 cm in craniocaudal axis showing homogeneous attenuation with no obvious focal mass lesion within the limitations of noncontrast study. No intrahepatic biliary dilatation. Gallbladder is surgically removed. Feeding tube is seen extending from the stomach with the distal tip seen in the proximal jejunal loop. Pancreas is unremarkable. Mild enlarged spleen measuring about 14 cm in craniocaudal axis showing homogeneous attenuation with no focal mass lesion. No adrenal mass. Both kidneys appear normal in size, shows normal contour and attenuation. No calculus, mass or hydronephrosis in either kidney. Status post ileocolonic anastomosis. Interval resolution of the collection in the epigastric region. Still seen apparent thickening of the ileal loop with mild interval preogression of the adjacent fat stranding. Few adjacent mesenteric lymph nodes seen. Newly developed air locul in the right paraumbilical region fat stranding (img 40 se 2) No ascites. No para-aortic lymphadenopathy. There is interval decrease of the soft tissue density at the umbilicus with resolution of the pockets of gas within. The overlying abdominal wall appears thickened. Partially filled urinary bladder, appears free from intraluminal stones, mass or diverticular outpouching. The uterus is not visualized-surgically removed. No adnexal mass. No acute osseous abnormality or suspicious bony lesions. IMPRESSION: Still seen apparent thickening of the ileal loop with mild interval progression of the adjacent fat stranding. Few adjacent mesenteric lymph nodes seen. Newly developed air loculi in the right paraumbilical region fat stranding (img 40 se 2). Possible inflammatory change rather than leakage and perforation. For surgical consultation and post IV and oral contrast CT assessment if clinically indicated. No signifcant interval change in the rest of the findings. Feeding tube is still seen extending from the stomach with the distal tip seen in the proximal jejunal loop. Status post ileocolonic anastomosis. Interval resolution of the collection in the epigastric region. There is interval decrease of the soft tissue density at the umbilicus with resolution of the pockets of gas within. The overlying abdominal wall appears thickened. Mild Splenomegaly. Electronically Signed by: Terry Villafuerte MD. (11/21/2023 18:15:36 EST)
[2023-11-21 20:42] LABS: Appearance Cloudy (Clear); Bacteria None Seen /HPF (None Seen); Bilirubin Negative (Negative); Blood Moderate (Negative); Epithelial Cells Few /HPF (None Seen); Glucose, Urine Negative (Negative); Ketones Trace (Negative); Leukocyte Esterase Small (Negative); Nitrite Negative (Negative); Protein,Urine Dip 100 (Negative); RBC 21-50 /HPF (0-5); Specific Gravity 1.015 (1.005-1.030); Urobilinogen 0.2 mg/dL (0.2)
[2023-11-21 20:44] LABS: ADD URINE CULTURE? YES (NO)
[2023-11-21] MEDS ORDERED: ROCEPHIN 1 GM / 100 ML NaCl 1 GM/100 ML IVPB IV ONE ×2 (21:28→21:32)
[2023-11-21 23:14] VITALS: BP 109/66; PULSE 91; RESP 15; O2SAT 92
== END 2023-11-21 23:12 | disposition short-term general hospital (02) ==
LOC: ED 15:10
DX: E87.6 Hypokalemia (principal); A09 Infectious gastroenteritis and colitis, unspecified; R11.2 Nausea with vomiting, unspecified; R53.1 Weakness; R10.9 Unspecified abdominal pain; N18.6 End stage renal disease; Z79.01 Long term (current) use of anticoagulants; Z79.891 Long term (current) use of opiate analgesic; Z79.899 Other long term (current) drug therapy; Z72.0 Tobacco use; Z99.2 Dependence on renal dialysis
CPT/HCPCS: 36415; 74176; 80053; 81001; 82150; 83605; 83690; 84132; 84703; 85025; 87086; 96374; 96375; 99285; J0696; J1170; J2405; J3480

== ENCOUNTER 2023-12-26 13:35 | Observation (INO) | payer MEDICARE ==
--- NOTE | 2023-12-26 14:29 | ERPHSYRPT ---
- History of Present Illness Time Seen by Provider: 12/26/23 14:28 Source: patient Patient Subjective Stated Complaint: Pt states "I had labs drawn yesterday and my potassium is low and I need blood and I need dilauded for pain." Triage Nursing Assessment: Pt presented alert and oriented X 3, skin pwd. Pt ambulates with an upright steady gait, able to speak in clear full sentences. PT resting comfortably on the bed. Pt demanding specific treatment. Physician History: Pt states "I had labs drawn yesterday and my potassium is low and I need blood and I need dilauded for pain." Patient is 43-year-old female with significant past medical history of Crohn's disease Crohn's enterocolitis s/p enterostomy chronic pancreatitis pulmonary embolism history of intracranial bleed was seen by her primary care physician yesterday where some blood draws were done. Results were called into the patient's with hemoglobin 8.4 and potassium 2.5 and she was told to come to the emergency room for further management. Patient states that yesterday when they were trying to draw blood her Port-A-Cath will 2 lm were possibly blocked and they could not draw any blood. Patient denies any other symptoms. Timing/Duration: today Associated Symptoms: denies symptoms Allergies/Adverse Reactions: acetaminophen [From Tylenol] Allergy (Severe, Verified 11/21/23 15:26) Swelling of Tongue and Lips THROAT SWELL AND BREATHING DIFFICULTY hydrocodone [From Lortab] Allergy (Severe, Verified 11/21/23 15:26) Swelling of Tongue and Lips natalizumab [From Tysabri] Allergy (Severe, Verified 11/21/23 15:26) Hives onion Allergy (Severe, Verified 11/21/23 15:26) Swelling of Tongue and Lips raw onion only tomato Allergy (Severe, Verified 11/21/23 15:26) Tightness of Throat latex Allergy (Intermediate, Verified 11/21/23 15:26) Hives morphine Adverse Reaction (Severe, Verified 11/21/23 15:26) makes pt mad/angry/volitle Home Medications: Apixaban [Eliquis] 5 mg PO BID 08/11/23 [History] Ferrous Sulfate 325 mg [Feosol 325 mg] 325 mg PO UD 08/11/23 [History] Ondansetron ODT 4 MG [Zofran Odt 4 mg] 1 tab SL Q8HPRN PRN 08/11/23 [Hist ory] Oxycodone HCl 5 mg PO BID 08/11/23 [History] clonazePAM [Clonazepam] 0.125 mg PO BID PRN 08/11/23 [History] Fluconazole 200 mg PO UD 10/18/23 [History] Fludrocortisone Acetate 0.1 mg PO BID 11/21/23 [History] Midodrine HCl [Proamatine] 15 mg PO Q6H 11/21/23 [History] Potassium Chloride in Water [Potassium Cl 10 Meq/100 ml Fidelia] 15 meq PO DAILY 11/21/23 [History] Atorvastatin Calcium 40 mg PO DAILY 12/26/23 [History] Hx Tetanus, Diphtheria Vaccination/Date Given: Yes Hx Influenza Vaccination/Date Given: No Hx Pneumococcal Vaccination/Date Given: No Immunizations Up to Date: No Travel Risk - International Travel Have you traveled outside of the country in past 3 weeks: No - Coronavirus Screening Are you exhibiting any of the following symptoms?: No Close contact with a COVID-19 positive Pt in past 14-21 Days: No - Vaccine Status Have you recieved a Covid-19 vaccination: Yes Implementation Project 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: Unknown - Vaccination Dates Dates if Unknown: UNKNOWN - Review of Systems Constitutional: No Fever, No Chills Eyes: No Symptoms Ears, Nose, & Throat: No Symptoms Respiratory: No Cough, No Dyspnea Cardiac: No Chest Pain, No Edema, No Syncope Abdominal/Gastrointestinal: No Abdominal Pain, No Nausea, No Vomiting, No Diarrhea Genitourinary Symptoms: No Dysuria Musculoskeletal: No Back Pain, No Neck Pain Skin: No Rash Neurological: No Dizziness, No Focal Weakness, No Sensory Changes Psychological: No Symptoms Endocrine: No Symptoms All Other Systems: Reviewed and Negative - Past Medical History Pertinent Past Medical History: Yes Neurological History: Migraines, Seizures ENT History: No Pertinent History Cardiac History: Deep Vein Thrombosis Respiratory History: Pulmonary Embolism Endocrine Medical History: No Pertinent History Musculoskeletal History: No Pertinent History GI Medical History: Crohns Disease, GERD, Pancreatitis, Ulcer History: Renal Disease Psycho-Social History: Anxiety, Bipolar, Depression Female Reproductive Disorders: Fibroids, Uterine Cancer Other Medical History: unknown source of acute kidney failure 04/28/2022. 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 - Past Surgical History Past Surgical History: Yes Neuro Surgical History: No Pertinent History Cardiac: No Pertinent History Respiratory: No Pertinent History Gastrointestinal: Cholecystectomy, Other Genitourinary: No Pertinent History Musculoskeletal: Orthopedic Surgery Female Surgical History: Hysterectomy, Dilation & Curettage, Other Other Surgical History: intestine resect 4-5 times, pins R foot, multiple port placement - Social History Smoking Status: Light tobacco smoker Exposure to second hand smoke: Yes Drug Use: marijuana Patient Lives Alone: No - Female History Hx Last Menstrual Period: hysterectomy Hx Now: No - Nursing Vital Signs Nursing Vital Signs: Initial Vital Signs Temperature 99.1 F 12/26/23 14:03 Pulse Rate 75 12/26/23 14:03 Respiratory Rate 20 12/26/23 14:03 Blood Pressure 107/65 12/26/23 14:03 O2 Sat by Pulse Oximetry 99 12/26/23 14:03 Pain Scale Pain Intensity 8 - Physical Exam General Appearance: no apparent distress, alert Eye Exam: PERRL/EOMI, eyes nml inspection Ears, Nose, Throat Exam: normal ENT inspection, TMs normal, pharynx normal, moist mucous membranes Neck Exam: normal inspection, non-tender, supple, full range of motion Respiratory Exam: normal breath sounds, lungs clear, No respiratory distress Cardiovascular Exam: regular rate/rhythm, normal heart sounds, normal peripheral pulses Gastrointestinal/Abdomen Exam: soft, normal bowel sounds, No tenderness, No mass Back Exam: normal inspection, normal range of motion, No CVA tenderness, No vertebral tenderness Extremity Exam: normal inspection, normal range of motion, pelvis stable Neurologic Exam: alert, oriented x 3, cooperative, normal mood/affect, nml cerebellar function, nml station & gait, sensation nml, No motor deficits Skin Exam: normal color, warm, dry, No rash Lymphatic Exam: No adenopathy SpO2: 99 - Course Nursing assessment & vital signs reviewed: Yes Ordered Tests: Active Orders 24 hr Category Date Time Status Telemetry q4h Care 12/26/23 16:29 Active CBC W DIFF Stat Lab 12/26/23 15:43 Completed CMP Stat Lab 12/26/23 14:11 Completed MAGNESIUM Stat Lab 12/26/23 16:30 Ordered Medication Summary Generic Name Dose Route Start Last Admin Trade Name Freq PRN Reason Stop Dose Admin Potassium Chloride 20 meq in 100 mls @ 50 mls/hr 12/26/23 16:30 Potassium Chloride 20 Meq In Water 100ml IV 12/26/23 20:29 Q2H ROMULO Magnesium Sulfate/Water 2 gm in 50 mls @ 100 mls/hr 12/26/23 16:30 Magnesium Sulf 2 G/50 Ml Bag IV 12/26/23 16:59 ONCE ONE Discontinued Medications Generic Name Dose Route Start Last Admin Trade Name Freq PRN Reason Stop Dose Admin Heparin Sodium (Beef Lung) Confirm 12/26/23 14:24 Heparin Lock Flush Pf 500 Units/5 Ml Syringe Administered 12/26/23 14:25 Dose 500 units .ROUTE .STK-MED ONE Heparin Sodium (Beef Lung) Confirm 12/26/23 15:42 Heparin Lock Flush Pf 500 Units/5 Ml Syringe Administered 12/26/23 15:43 Dose 500 units .ROUTE .STK-MED ONE Hydromorphone HCl 0.5 mg 12/26/23 15:52 12/26/23 16:19 Hydromorphone 1 Mg/1ml Inj IV 12/26/23 15:53 0.5 mg STAT ONE Administration Hydromorphone HCl Confirm 12/26/23 16:18 Hydromorphone 1 Mg/1ml Inj Administered 12/26/23 16:19 Dose 1 mg .ROUTE .STK-MED ONE Lab/Rad Data: Laboratory Result Diagrams 12/26/23 15:43 12/26/23 14:11 Laboratory Results 12/26/23 12/26/23 Range/Units 15:43 14:11 WBC 4.1 (4.0-10.5) x10^3/uL RBC 2.49 L (4.1-5.4) x10^6/uL Hgb 7.4 L (12.0-16.0) g/dL Hct 23.8 L (35-47) % MCV 95.6 (78-100) fL MCH 29.7 (26-32) pg MCHC 31.1 L (32-36) g/dL RDW 15.8 H (11.5-14.0) % Plt Count 106 L (150-450) x10^3/uL MPV 11.6 H (7.5-11.0) fL Gran % 55.2 (36.0-66.0) % Immature Gran % (Auto) 0.2 (0.00-0.4) % Nucleat RBC Rel Count 0.0 (0.00-0.1) % Eos # (Auto) 0.02 (0-0.5) x10^3/uL Immature Gran # (Auto) 0.01 (0.00-0.03) x10^3u/L Absolute Lymphs (auto) 1.29 (1.0-4.6) x10^3/uL Absolute Monos (auto) 0.50 (0.0-1.3) x10^3/uL Absolute Nucleated RBC 0.00 (0.00-0.01) x10^3u/L Lymphocytes % 31.8 (24.0-44.0) % Monocytes % 12.3 H (0.0-12.0) % Eosinophils % 0.5 (0.00-5.0) % Basophils % 0.0 (0.0-0.4) % Absolute Granulocytes 2.24 (1.4-6.9) x10^3/uL Basophils # 0 (0-0.4) x10^3/uL Sodium 139 (135-145) mmol/L Potassium 1.9 L* (3.5-5.1) mmol/L Chloride 111 H (98-107) mmol/L Carbon Dioxide 20 L (22-30) mmol/L Anion Gap 10.3 (5-15) MEQ/L BUN 18 H (7-17) mg/dL Creatinine 1.60 H (0.52-1.04) mg/dL Estimated GFR 41.3 ML/MIN Glucose 88 (74-106) mg/dL Calcium 6.5 L (8.4-10.2) mg/dL Total Bilirubin 0.70 (0.2-1.3) mg/dL AST 26 (14-36) U/L ALT 13 (0-35) U/L Alkaline Phosphatase 85 (38-126) U/L Serum Total Protein 5.9 L (6.3-8.2) g/dL Albumin 2.0 L (3.5-5.0) g/dL - Progress Progress: unchanged Discussed with Dr.: Other (Dr iFne, (TeleHospitalist)) Will see patient in: hospital (observation) Counseled pt/family regarding: lab results, diagnosis, need for follow-up Medical Desision Making - Independent Historian Additional History obtained from: Father - Risk of complications The pt has a mod risk of morbidity or mortality based on: Need for prescription drug management The pt has a high risk of morbidity or mortality based on: Drug therapy requiring intensive monitoring for toxicity - Departure Departure Disposition: Observation Clinical Impression: Symptomatic anemia, Hypokalemia, Chronic anemia Condition: Fair Critical Care Time: Yes Critical Care Time(excluding separately billable procedures): Critical 30-74 mins Referrals: OSCAR CALVILLO DO [Primary Care Provider] - Follow up/PCP as directed
[2023-12-26 15:45] LABS: Absolute Neutrophil Ct (ANC) 2.24 x10^3/uL (1.4-6.9); Basophil (Absolute #) 0 x10^3/uL (0-0.4); Eosinophil % 0.5 % (0.00-5.0); Eosinophil (Absolute #) 0.02 x10^3/uL (0-0.5); Hematocrit 23.8 % (35-47); Hemoglobin 7.4 g/dL (12.0-16.0); IMMATURE GRAN # 0.01 x10^3u/L (0.00-0.03); IMMATURE GRAN % 0.2 % (0.00-0.4); Lymphocyte (Absolute #) 1.29 x10^3/uL (1.0-4.6); Lymphocytes % 31.8 % (24.0-44.0); Mean Cell Volume 95.6 fL (78-100); Mean Corpuscular Hemoglobin 29.7 pg (26-32); Mean Corpuscular Hgb Concent. 31.1 g/dL (32-36); Mean Platelet Volume 11.6 fL (7.5-11.0); Monocytes % 12.3 % (0.0-12.0); Neutrophil % 55.2 % (36.0-66.0); Platelet Count 106 x10^3/uL (150-450); Red Blood Count 2.49 x10^6/uL (4.1-5.4); Red Cell Distribution Width 15.8 % (11.5-14.0); White Blood Count 4.1 x10^3/uL (4.0-10.5)
[2023-12-26 16:11] LABS: ANION GAP 10.3 MEQ/L (5-15); BILIRUBIN,TOTAL 0.7 mg/dL (0.2-1.3); Calcium 6.5 mg/dL (8.4-10.2); Creatinine 1 1.6 mg/dL (0.52-1.04); EST GLOMERULAR FILTRATION RATE 41.3 ML/MIN; Total Protein 5.9 g/dL (6.3-8.2)
[2023-12-26] MEDS ORDERED: Hydromorphone 1 mg/ml Injection ONE (16:18)
[2023-12-26] MEDS: Hydromorphone 1 mg/ml Injection IV ONE (16:19)
[2023-12-26 16:27] LABS: Potassium 1.9 mmol/L (3.5-5.1)
[2023-12-26] MEDS ORDERED: MAGNESIUM SULF 2 G/50 ML BAG 2 GM/50 ML PIGGYBACK IV ONE (16:41)
[2023-12-26] MEDS: POTASSIUM CHLORIDE 20 mEq IN WATER 100ML 20 MEQ/100 ML BAG IV SCH (16:42)
[2023-12-26] MEDS: MAGNESIUM SULF 2 G/50 ML BAG 2 GM/50 ML PIGGYBACK IV ONE ×2 (16:42→18:35)
--- NOTE | 2023-12-26 17:33 | PCM.HP ---
History of Present Illness - Chief Complaint Chief Complaint: severe hypokalemia, symptomatic anemia Date: 12/26/23 History of Present Illness: is a 43 year old female with extensive pmhx of Migraines, seizures, DVT, PE, Crohns enterocolitis s/p enterostomy, fistula, GERD, smoker, uterine cancer, bipolar/depression, renal disease, pancreatitis, intracranial cranial bleed who presented to ED 12/26/23 after under the advisement of her PCP due to a critical potassium on labs drawn yesterday. Patient also noted with low hgb. Patient receives dialysis -- (will change to -F this coming week). She states she did not go to this past Thursday's appointment as she had an appt with her PCP. Last dialysis was Thursday. She has complaints of chronic abdominal pain from her fistula otherwise denies fever,cough, sob, cp, BRADSHAW, dizziness, N/V/D. In ED, patient mildly hypotensive otherwise vitals unremarkable. Lab findings remarkable for normocytic anemia with Hgb at 7.4, plt at 106, potassium at 1.9, carbon dioxide at 20, BUN at 18, creat at 1.60, magnesium at 1.0, corrected calcium at 8.1. Patient received potassium, magnesium, and dilaudid in ED. Plan to replenish electrolytes and 1 unit of LPRBCs and most likely discharge tomorrow. - Review of Systems Constitutional: No Symptoms Eyes: No Symptoms Ears, Nose, & Throat: No Symptoms Respiratory: No Symptoms Cardiac: No Symptoms Abdominal/Gastrointestinal: Abdominal Pain Genitourinary Symptoms: No Symptoms Musculoskeletal: No Symptoms (fistula) Skin: Other (PICC/ dialysis cath right ext /Gtube ) Neurological: No Symptoms Psychological: No Symptoms Endocrine: No Symptoms Hematologic/Lymphatic: Anemia Immunological/Allergic: No Symptoms Medications & Allergies Home Medications: Home Medication List Apixaban [Eliquis] 5 mg PO BID 08/11/23 [History Confirmed 12/26/23] Ferrous Sulfate 325 mg [Feosol 325 mg] 325 mg PO UD 08/11/23 [History Confirmed 12/26/23] Ondansetron ODT 4 MG [Zofran Odt 4 mg] 1 tab SL Q8HPRN PRN 08/11/23 [History Confirmed 12/26/23] Oxycodone HCl 5 mg PO BID 08/11/23 [History Confirmed 12/26/23] clonazePAM [Clonazepam] 0.125 mg PO BID PRN 08/11/23 [History Confirmed 12/26/23] Fluconazole 200 mg PO UD 10/18/23 [History Confirmed 12/26/23] Fludrocortisone Acetate 0.1 mg PO BID 11/21/23 [History Confirmed 12/26/23] Midodrine HCl [Proamatine] 15 mg PO Q6H 11/21/23 [History Confirmed 12/26/23] Potassium Chloride in Water [Potassium Cl 10 Meq/100 ml Fidelia] 15 meq PO DAILY 11/21/23 [History Confirmed 12/26/23] Atorvastatin Calcium 40 mg PO DAILY 12/26/23 [History Confirmed 12/26/23] Allergies/Adverse Reactions: Allergies Allergy/AdvReac Type Severity Reaction Status Date / Time acetaminophen [From Tylenol] Allergy Severe Swelling Verified 11/21/23 15:26 of Tongue and Lips hydrocodone [From Lortab] Allergy Severe Swelling Verified 11/21/23 15:26 of Tongue and Lips natalizumab [From Tysabri] Allergy Severe Hives Verified 11/21/23 15:26 onion Allergy Severe Swelling Verified 11/21/23 15:26 of Tongue and Lips tomato Allergy Severe Tightness Verified 11/21/23 15:26 of Throat latex Allergy Intermediate Hives Verified 11/21/23 15:26 morphine AdvReac Severe Verified 11/21/23 15:26 - Past Medical History Past Medical History: Yes Neurological History: Migraines, Seizures ENT History: No Pertinent History Cardiac History: Deep Vein Thrombosis Respiratory History: Pulmonary Embolism Endocrine Medical History: No Pertinent History Musculoskelatal History: No Pertinent History GI Medical History: Crohns Disease, GERD, Pancreatitis, Ulcer History: Renal Disease Pyscho-Social History: Anxiety, Bipolar, Depression Reproductive Disorders: Fibroids, Uterine Cancer Comment: unknown source of acute kidney failure 04/28/2022. 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 - Female History Hx Last Menstrual Period: hysterectomy Are you now?: No - Past Surgical History Past Surgical History: Yes Neuro Surgical History: No Pertinent History Cardiac History: No Pertinent History Respiratory Surgery: No Pertinent History GI Surgical History: Cholecystectomy, Other Genitourinary Surgical Hx: No Pertinent History Musculskeletal Surgical Hx: Orthopedic Surgery Female Surgical History: Hysterectomy, Dilation & Curettage, Other Other Surgical History: intestine resect 4-5 times, pins R foot, multiple port placement - Social History Smoking Status: Light tobacco smoker Exposure to second hand smoke: Yes Alcohol: None Drug Use: marijuana - Physical Exam Vital Signs: Vital Signs - 24 hr Temp Pulse Resp BP BP Pulse Ox 12/26/23 16:45 88 118/74 98 12/26/23 16:37 99 12/26/23 16:30 110/73 98 12/26/23 16:15 112/68 12/26/23 16:00 113/68 98 12/26/23 15:45 99/64 96 12/26/23 15:30 107/69 12/26/23 15:15 103/64 12/26/23 15:00 72 101/62 96 12/26/23 14:45 94/46 97 12/26/23 14:30 98/69 95 12/26/23 14:03 99.1 F 75 20 107/65 99 General Appearance: no apparent distress Neurologic Exam: alert, oriented x 3, cooperative Eye Exam: PERRL/EOMI Ears, Nose, Throat Exam: normal ENT inspection Neck Exam: normal inspection Respiratory Exam: normal breath sounds, lungs clear Cardiovascular Exam: regular rate/rhythm, normal heart sounds Gastrointestinal/Abdomen Exam: tenderness, other (Gtube) Pelvic Exam: not done Rectal Exam: deferred Back Exam: normal inspection Extremity Exam: other (PICC/ dialysis cath right ext) Skin Exam: pale Results - Labs Lab/Micro Results: Lab Results-Last 24 Hours 12/26/23 12/26/23 12/26/23 Range/Units 14:11 15:43 16:30 WBC 4.1 (4.0-10.5) x10^3/uL RBC 2.49 L (4.1-5.4) x10^6/uL Hgb 7.4 L (12.0-16.0) g/dL Hct 23.8 L (35-47) % MCV 95.6 (78-100) fL MCH 29.7 (26-32) pg MCHC 31.1 L (32-36) g/dL RDW 15.8 H (11.5-14.0) % Plt Count 106 L (150-450) x10^3/uL MPV 11.6 H (7.5-11.0) fL Gran % 55.2 (36.0-66.0) % Immature Gran % (Auto) 0.2 (0.00-0.4) % Nucleat RBC Rel Count 0.0 (0.00-0.1) % Eos # (Auto) 0.02 (0-0.5) x10^3/uL Immature Gran # (Auto) 0.01 (0.00-0.03) x10^3u/L Absolute Lymphs (auto) 1.29 (1.0-4.6) x10^3/uL Absolute Monos (auto) 0.50 (0.0-1.3) x10^3/uL Absolute Nucleated RBC 0.00 (0.00-0.01) x10^3u/L Lymphocytes % 31.8 (24.0-44.0) % Monocytes % 12.3 H (0.0-12.0) % Eosinophils % 0.5 (0.00-5.0) % Basophils % 0.0 (0.0-0.4) % Absolute Granulocytes 2.24 (1.4-6.9) x10^3/uL Basophils # 0 (0-0.4) x10^3/uL Sodium 139 (135-145) mmol/L Potassium 1.9 L* (3.5-5.1) mmol/L Chloride 111 H (98-107) mmol/L Carbon Dioxide 20 L (22-30) mmol/L Anion Gap 10.3 (5-15) MEQ/L BUN 18 H (7-17) mg/dL Creatinine 1.60 H (0.52-1.04) mg/dL Estimated GFR 41.3 ML/MIN Glucose 88 (74-106) mg/dL Calcium 6.5 L (8.4-10.2) mg/dL Magnesium 1.0 L* (1.6-2.3) mg/dL Total Bilirubin 0.70 (0.2-1.3) mg/dL AST 26 (14-36) U/L ALT 13 (0-35) U/L Alkaline Phosphatase 85 (38-126) U/L Serum Total Protein 5.9 L (6.3-8.2) g/dL Albumin 2.0 L (3.5-5.0) g/dL Assessment/Plan (1) Hypokalemia Current Visit: Yes Status: Acute Assessment & Plan: -Labs reviewed, potassium at 1.9, 40meq IV, replenish per protocol -Tele Code(s): E87.6 - HYPOKALEMIA (2) Symptomatic anemia Current Visit: Yes Status: Acute Assessment & Plan: -Labs reviewed, hgb trend 7.4<8.8 , will transfuse with 1 unit LPRBC, cbc 1 hour post transfusion, monitor and replace with hgb <7 -Hold eliquis Code(s): D64.9 - ANEMIA, UNSPECIFIED (3) Chronic kidney disease Current Visit: Yes Status: Acute Assessment & Plan: -Dialysis M-F schedule starting next week, last dialysis 12/23/23 -Monitor renal/lytes -Avoid NSAIDs/RENEE/ARB Code(s): N18.9 - CHRONIC KIDNEY DISEASE, UNSPECIFIED (4) 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 Current Visit: No Status: Acute Assessment & Plan: -noted, recent hospitalization at [facility], discharged 12/08/23, states she has follow up soon but unsure when -Diluadid for pain control Code(s): K63.2 - FISTULA OF INTESTINE (5) Hypocalcemia Current Visit: No Status: Acute Assessment & Plan: -corrected erasmo at 8.1, will continue to monitor Code(s): E83.51 - HYPOCALCEMIA (6) Hypomagnesemia Current Visit: No Status: Acute Assessment & Plan: -labs reviewed with mg at 1.0, will replace with 4g magnesium Code(s): E83.42 - HYPOMAGNESEMIA (7) Crohn disease Current Visit: No Status: Chronic Assessment & Plan: -noted, adds complexity Code(s): K50.90 - CROHN'S DISEASE, UNSPECIFIED, WITHOUT COMPLICATIONS
[2023-12-26] MEDS ORDERED: CLONAZEPAM 0.125 MG PO PRN (18:03)
[2023-12-26] MEDS ORDERED: FEOSOL 325 MG PO SCH (18:15)
[2023-12-26] MEDS ORDERED: FLUCONAZOLE 200 MG PO SCH (18:15)
[2023-12-26] MEDS: PROAMATINE PO SCH (18:37)
[2023-12-26 19:11] LABS: ABO TYPING A; Antibody Screen NEGATIVE (NEGATIVE); RH TYPING POSITIVE
[2023-12-26 19:15] LABS: CROSS MATCH (PRBC) COMPATIBLE (COMPATIBLE)
[2023-12-26] MEDS: Hydromorphone 1 mg/ml Injection IV PRN (21:11)
[2023-12-26] MEDS ORDERED: ZOCOR 20MG ONE (22:39)
[2023-12-26] MEDS: ZOCOR 20MG PO SCH (22:49)
[2023-12-26] MEDS: Cathflo Activase 2 MG IV ONE (22:56)
[2023-12-26] MEDS: Zofran 4 MG/2 ML VIAL IV PRN (23:01)
[2023-12-26] MEDS: NON-FORMULARY ITEM (Fludrocortisone Acetate [Fludrocortisone Acetate] 0.1 MG Tablet) PO SCH (23:51)
[2023-12-26] MEDS: LIPITOR 40MG PO SCH (23:51)
[2023-12-27] MEDS: POTASSIUM CHLORIDE 20 mEq IN WATER 100ML 20 MEQ/100 ML BAG IV SCH ×2 (00:27→20:48)
[2023-12-27 06:25] LABS: Absolute Neutrophil Ct (ANC) 1.79 x10^3/uL (1.4-6.9); BASOPHIL % 0.3 % (0.0-0.4); Basophil (Absolute #) 0.01 x10^3/uL (0-0.4); Eosinophil % 0.6 % (0.00-5.0); Eosinophil (Absolute #) 0.02 x10^3/uL (0-0.5); Hematocrit 21.9 % (35-47); IMMATURE GRAN # 0.01 x10^3u/L (0.00-0.03); IMMATURE GRAN % 0.3 % (0.00-0.4); Lymphocyte (Absolute #) 1.12 x10^3/uL (1.0-4.6); Lymphocytes % 33.3 % (24.0-44.0); Mean Cell Volume 94.4 fL (78-100); Mean Corpuscular Hemoglobin 29.7 pg (26-32); Mean Corpuscular Hgb Concent. 31.5 g/dL (32-36); Monocyte (Absolute #) 0.41 x10^3/uL (0.0-1.3); Monocytes % 12.2 % (0.0-12.0); Neutrophil % 53.3 % (36.0-66.0); Platelet Count 118 x10^3/uL (150-450); Red Blood Count 2.32 x10^6/uL (4.1-5.4); Red Cell Distribution Width 15.8 % (11.5-14.0); White Blood Count 3.4 x10^3/uL (4.0-10.5)
[2023-12-27 06:27] LABS: Hemoglobin 6.9 g/dL (12.0-16.0)
[2023-12-27] MEDS ORDERED: MEDICATION INTERVENTION MC SCH (07:45)
[2023-12-27] MEDS: PROAMATINE PO SCH (08:31)
[2023-12-27 08:53] LABS: ALBUMIN 1.9 g/dL (3.5-5.0); ANION GAP 8.2 MEQ/L (5-15); BILIRUBIN,TOTAL 0.5 mg/dL (0.2-1.3); Calcium 6.9 mg/dL (8.4-10.2); Creatinine 1 1.62 mg/dL (0.52-1.04); EST GLOMERULAR FILTRATION RATE 40.7 ML/MIN; Total Protein 5.7 g/dL (6.3-8.2)
[2023-12-27 08:55] LABS: Potassium 2.4 mmol/L (3.5-5.1)
[2023-12-27] MEDS: POTASSIUM CHLORIDE 20 mEq IN WATER 100ML 100 ML IV SCH (09:29)
[2023-12-27] MEDS: Sodium Chloride 0.9% 500 ML 500 ML IV SCH (09:32)
[2023-12-27] MEDS ORDERED: LIPITOR 40MG PO SCH (10:00)
--- NOTE | 2023-12-27 10:47 | PCM.NOTE ---
Date and Time: 12/27/23 1039 Subjective Assessment: HPI: is a 43 year old female with extensive pmhx of Migraines, seizures, DVT, PE, Crohns enterocolitis s/p enterostomy, fistula, GERD, smoker, uterine cancer, bipolar/depression, renal disease, pancreatitis, intracranial cranial bleed who presented to ED 12/26/23 after under the advisement of her PCP due to a critical potassium on labs drawn yesterday. Patient also noted with low hgb. Patient receives dialysis -- (will change to M-F this coming week). She states she did not go to this past Thursday's appointment as she had an appt with her PCP. Last dialysis was Thursday. She has complaints of chronic abdominal pain from her fistula otherwise denies fever,cough, sob, cp, BRADSHAW, dizziness, N/V/D.In ED, patient mildly hypotensive otherwise vitals unremarkable. Lab findings remarkable for normocytic anemia with Hgb at 7.4, plt at 106, potassium at 1.9, carbon dioxide at 20, BUN at 18, creat at 1.60, magnesium at 1.0, corrected calcium at 8.1. Patient received potassium, magnesium, and dilaudid in ED. Plan to replenish electrolytes and 1 unit of LPRBCs and most likely discharge tomorrow. 12/27/23: Met with patient bedside. Discussed labwork with potassium and hemoglobin still low. Will replenish. It is likely she may be able to discharge today if levels stabilize. Patient endorses chronic abdominal pain. States she was noticing blood in stools and hematuria about a week ago but nothing since. - Review of Systems Constitutional: No Symptoms Eyes: No Symptoms Ears, Nose, & Throat: No Symptoms Respiratory: No Symptoms Cardiac: No Symptoms Abdominal/Gastrointestinal: Abdominal Pain Genitourinary Symptoms: No Symptoms Musculoskeletal: No Symptoms Skin: Other (PICC/dialysis port/GTUBE) Neurological: No Symptoms Psychological: No Symptoms Endocrine: No Symptoms Hematologic/Lymphatic: No Symptoms Immunological/Allergic: No Symptoms Objective Exam General Appearance: no apparent distress Neurologic Exam: alert, oriented x 3, cooperative Skin Exam: pale Wound Assessment: Skin/Wound Assessment Wound/Incision Assessment Start: 12/27/23 06:41 Text: Status: Active Freq: Protocol: Document 12/27/23 06:43 AR (Rec: 12/27/23 06:47 AR [id number]) Wound/Incision Assessment Medial Abdomen Wound Assessment Shift Assessment Wound Type fistula Dressing Status Changed Drainage Amount Large Drainage Description Yellow Drainage Odor Foul Odor General Appearance Reddened Surrounding Tissue [place],Edematous Topical Solution/Irrigant Saline Irrigant Primary Dressing Gauze Pads Secondary Dressing abd pads Comment one wound above belly button and one wound below belly button. irrigated with sterile water and dressed with 4x4 gauze, covered with abd pads and tape. Wound Photo Photo Taken No Eye Exam: PERRL Ears, Nose, Throat Exam: normal ENT inspection Neck Exam: normal inspection Respiratory Exam: normal breath sounds, lungs clear Cardiovascular Exam: regular rate/rhythm, normal heart sounds Gastrointestinal/Abdomen Exam: soft, normal bowel sounds, other (gtube) Extremity Exam: other (RUE PICC/ dialysis port) Back Exam: normal inspection Pelvic Exam: deferred Rectal Exam: deferred Objective Data Vital Signs: Vital Signs - 24 hr Temp Pulse Resp BP BP Pulse Ox 12/27/23 08:09 97.7 F 87 16 85/52 99 12/27/23 04:58 98.0 F 81 18 92/50 99 12/26/23 23:56 98.4 F 88 18 101/60 99 12/26/23 20:00 97.5 F 64 18 93/52 99 12/26/23 17:02 98.9 F 85 13 108/60 98 12/26/23 16:45 88 118/74 98 12/26/23 16:37 99 12/26/23 16:30 110/73 98 12/26/23 16:15 112/68 12/26/23 16:00 113/68 98 12/26/23 15:45 99/64 96 12/26/23 15:30 107/69 12/26/23 15:15 103/64 12/26/23 15:00 72 101/62 96 12/26/23 14:45 94/46 97 12/26/23 14:30 98/69 95 12/26/23 14:03 99.1 F 75 20 107/65 99 Pain Assessment - Last Documented Pain Intensity 7 Pain Scale Used 0-10 Pain Scale Intake and Output: Intake & Output 12/24/23 12/25/23 12/26/23 12/27/23 11:59 11:59 11:59 12:59 Intake Total 1876 Output Total 300 Balance 1576 Weight 52 kg Lab Results: Lab Results-Last 24 Hours 12/26/23 12/26/23 12/26/23 Range/Units 14:11 15:43 16:30 WBC 4.1 (4.0-10.5) x10^3/uL RBC 2.49 L (4.1-5.4) x10^6/uL Hgb 7.4 L (12.0-16.0) g/dL Hct 23.8 L (35-47) % MCV 95.6 (78-100) fL MCH 29.7 (26-32) pg MCHC 31.1 L (32-36) g/dL RDW 15.8 H (11.5-14.0) % Plt Count 106 L (150-450) x10^3/uL MPV 11.6 H (7.5-11.0) fL Gran % 55.2 (36.0-66.0) % Immature Gran % (Auto) 0.2 (0.00-0.4) % Nucleat RBC Rel Count 0.0 (0.00-0.1) % Eos # (Auto) 0.02 (0-0.5) x10^3/uL Immature Gran # (Auto) 0.01 (0.00-0.03) x10^3u/L Absolute Lymphs (auto) 1.29 (1.0-4.6) x10^3/uL Absolute Monos (auto) 0.50 (0.0-1.3) x10^3/uL Absolute Nucleated RBC 0.00 (0.00-0.01) x10^3u/L Lymphocytes % 31.8 (24.0-44.0) % Monocytes % 12.3 H (0.0-12.0) % Eosinophils % 0.5 (0.00-5.0) % Basophils % 0.0 (0.0-0.4) % Absolute Granulocytes 2.24 (1.4-6.9) x10^3/uL Basophils # 0 (0-0.4) x10^3/uL Sodium 139 (135-145) mmol/L Potassium 1.9 L* (3.5-5.1) mmol/L Chloride 111 H (98-107) mmol/L Carbon Dioxide 20 L (22-30) mmol/L Anion Gap 10.3 (5-15) MEQ/L BUN 18 H (7-17) mg/dL Creatinine 1.60 H (0.52-1.04) mg/dL Estimated GFR 41.3 ML/MIN Glucose 88 (74-106) mg/dL POC Glucometer (74 to 106) mg/dL Hemoglobin A1c (4.5-6.0) % Calcium 6.5 L (8.4-10.2) mg/dL Magnesium 1.0 L* (1.6-2.3) mg/dL Total Bilirubin 0.70 (0.2-1.3) mg/dL AST 26 (14-36) U/L ALT 13 (0-35) U/L Alkaline Phosphatase 85 (38-126) U/L Serum Total Protein 5.9 L (6.3-8.2) g/dL Albumin 2.0 L (3.5-5.0) g/dL Slides for Path Review ABO Group Rh Factor Antibody Screen (NEGATIVE) Crossmatch (COMPATIBLE) 12/26/23 12/26/23 12/26/23 Range/Units 17:15 17:30 17:30 WBC (4.0-10.5) x10^3/uL RBC (4.1-5.4) x10^6/uL Hgb (12.0-16.0) g/dL Hct (35-47) % MCV (78-100) fL MCH (26-32) pg MCHC (32-36) g/dL RDW (11.5-14.0) % Plt Count (150-450) x10^3/uL MPV (7.5-11.0) fL Gran % (36.0-66.0) % Immature Gran % (Auto) (0.00-0.4) % Nucleat RBC Rel Count (0.00-0.1) % Eos # (Auto) (0-0.5) x10^3/uL Immature Gran # (Auto) (0.00-0.03) x10^3u/L Absolute Lymphs (auto) (1.0-4.6) x10^3/uL Absolute Monos (auto) (0.0-1.3) x10^3/uL Absolute Nucleated RBC (0.00-0.01) x10^3u/L Lymphocytes % (24.0-44.0) % Monocytes % (0.0-12.0) % Eosinophils % (0.00-5.0) % Basophils % (0.0-0.4) % Absolute Granulocytes (1.4-6.9) x10^3/uL Basophils # (0-0.4) x10^3/uL Sodium (135-145) mmol/L Potassium 2.0 L* (3.5-5.1) mmol/L Chloride (98-107) mmol/L Carbon Dioxide (22-30) mmol/L Anion Gap (5-15) MEQ/L BUN (7-17) mg/dL Creatinine (0.52-1.04) mg/dL Estimated GFR ML/MIN Glucose (74-106) mg/dL POC Glucometer (74 to 106) mg/dL Hemoglobin A1c (4.5-6.0) % Calcium (8.4-10.2) mg/dL Magnesium (1.6-2.3) mg/dL Total Bilirubin (0.2-1.3) mg/dL AST (14-36) U/L ALT (0-35) U/L Alkaline Phosphatase (38-126) U/L Serum Total Protein (6.3-8.2) g/dL Albumin (3.5-5.0) g/dL Slides for Path Review ABO Group A Rh Factor POSITIVE Antibody Screen NEGATIVE (NEGATIVE) Crossmatch COMPATIBLE COMPATIBLE (COMPATIBLE) 12/26/23 12/26/23 12/27/23 Range/Units 23:35 Unknown 05:53 WBC 3.4 L (4.0-10.5) x10^3/uL RBC 2.32 L (4.1-5.4) x10^6/uL Hgb 6.9 L* (12.0-16.0) g/dL Hct 21.9 L (35-47) % MCV 94.4 (78-100) fL MCH 29.7 (26-32) pg MCHC 31.5 L (32-36) g/dL RDW 15.8 H (11.5-14.0) % Plt Count 118 L (150-450) x10^3/uL MPV 12.0 H (7.5-11.0) fL Gran % 53.3 (36.0-66.0) % Immature Gran % (Auto) 0.3 (0.00-0.4) % Nucleat RBC Rel Count 0.0 (0.00-0.1) % Eos # (Auto) 0.02 (0-0.5) x10^3/uL Immature Gran # (Auto) 0.01 (0.00-0.03) x10^3u/L Absolute Lymphs (auto) 1.12 (1.0-4.6) x10^3/uL Absolute Monos (auto) 0.41 (0.0-1.3) x10^3/uL Absolute Nucleated RBC 0.00 (0.00-0.01) x10^3u/L Lymphocytes % 33.3 (24.0-44.0) % Monocytes % 12.2 H (0.0-12.0) % Eosinophils % 0.6 (0.00-5.0) % Basophils % 0.3 (0.0-0.4) % Absolute Granulocytes 1.79 (1.4-6.9) x10^3/uL Basophils # 0.01 (0-0.4) x10^3/uL Sodium (135-145) mmol/L Potassium 2.2 L* (3.5-5.1) mmol/L Chloride (98-107) mmol/L Carbon Dioxide (22-30) mmol/L Anion Gap (5-15) MEQ/L BUN (7-17) mg/dL Creatinine (0.52-1.04) mg/dL Estimated GFR ML/MIN Glucose (74-106) mg/dL POC Glucometer (74 to 106) mg/dL Hemoglobin A1c 4.60 (4.5-6.0) % Calcium (8.4-10.2) mg/dL Magnesium (1.6-2.3) mg/dL Total Bilirubin (0.2-1.3) mg/dL AST (14-36) U/L ALT (0-35) U/L Alkaline Phosphatase (38-126) U/L Serum Total Protein (6.3-8.2) g/dL Albumin (3.5-5.0) g/dL Slides for Path Review ABO Group Rh Factor Antibody Screen (NEGATIVE) Crossmatch (COMPATIBLE) 12/27/23 12/27/23 Range/Units 05:53 07:36 WBC (4.0-10.5) x10^3/uL RBC (4.1-5.4) x10^6/uL Hgb (12.0-16.0) g/dL Hct (35-47) % MCV (78-100) fL MCH (26-32) pg MCHC (32-36) g/dL RDW (11.5-14.0) % Plt Count (150-450) x10^3/uL MPV (7.5-11.0) fL Gran % (36.0-66.0) % Immature Gran % (Auto) (0.00-0.4) % Nucleat RBC Rel Count (0.00-0.1) % Eos # (Auto) (0-0.5) x10^3/uL Immature Gran # (Auto) (0.00-0.03) x10^3u/L Absolute Lymphs (auto) (1.0-4.6) x10^3/uL Absolute Monos (auto) (0.0-1.3) x10^3/uL Absolute Nucleated RBC (0.00-0.01) x10^3u/L Lymphocytes % (24.0-44.0) % Monocytes % (0.0-12.0) % Eosinophils % (0.00-5.0) % Basophils % (0.0-0.4) % Absolute Granulocytes (1.4-6.9) x10^3/uL Basophils # (0-0.4) x10^3/uL Sodium 139 (135-145) mmol/L Potassium 2.4 L* (3.5-5.1) mmol/L Chloride 111 H (98-107) mmol/L Carbon Dioxide 22 (22-30) mmol/L Anion Gap 8.2 (5-15) MEQ/L BUN 17 (7-17) mg/dL Creatinine 1.62 H (0.52-1.04) mg/dL Estimated GFR 40.7 ML/MIN Glucose 88 (74-106) mg/dL POC Glucometer 96 (74 to 106) mg/dL Hemoglobin A1c (4.5-6.0) % Calcium 6.9 L (8.4-10.2) mg/dL Magnesium 2.0 (1.6-2.3) mg/dL Total Bilirubin 0.50 (0.2-1.3) mg/dL AST 28 (14-36) U/L ALT 14 (0-35) U/L Alkaline Phosphatase 89 (38-126) U/L Serum Total Protein 5.7 L (6.3-8.2) g/dL Albumin 1.9 L (3.5-5.0) g/dL Slides for Path Review ABO Group Rh Factor Antibody Screen (NEGATIVE) Crossmatch (COMPATIBLE) Assessment/Plan (1) Hypokalemia Current Visit: Yes Status: Acute Assessment & Plan: (1) Hypokalemia Current Visit: Yes Status: Acute Assessment & Plan: -Labs reviewed, potassium at 1.9, 40meq IV, replenish per protocol -Tele 12/26: -Potassium at 2.4 will replenish with 40meq of IV potassium, recheck 2 hours after completion Code(s): E87.6 - HYPOKALEMIA (2) Symptomatic anemia Current Visit: Yes Status: Acute Assessment & Plan: -Labs reviewed, hgb trend 7.4<8.8 , will transfuse with 1 unit LPRBC, cbc 1 hour post transfusion, monitor and replace with hgb <7 -Hold eliquis 12/26: -Hold eliquis -Transfuse 2 units, patient did not receive last evening Code(s): D64.9 - ANEMIA, UNSPECIFIED (3) Chronic kidney disease Current Visit: Yes Status: Acute Assessment & Plan: -Dialysis M-F schedule starting next week, last dialysis 12/23/23 -Monitor renal/lytes -Avoid NSAIDs/RENEE/ARB 12/26: -Next dialysis tomorrow, creat stable Code(s): N18.9 - CHRONIC KIDNEY DISEASE, UNSPECIFIED (4) 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 Current Visit: No Status: Acute Assessment & Plan: -noted, recent hospitalization at [facility], discharged 12/08/23, states she has follow up soon but unsure when -Diluadid for pain control Code(s): K63.2 - FISTULA OF INTESTINE (5) Hypocalcemia Current Visit: No Status: Acute Assessment & Plan: -corrected erasmo at 8.1, will continue to monitor Code(s): E83.51 - HYPOCALCEMIA (6) Hypomagnesemia Current Visit: No Status: Acute Assessment & Plan: -labs reviewed with mg at 1.0, will replace with 4g magnesium 12/26: -resolved Code(s): E83.42 - HYPOMAGNESEMIA (7) Crohn disease Current Visit: No Status: Chronic Assessment & Plan: -noted, adds complexity Code(s): K50.90 - CROHN'S DISEASE, UNSPECIFIED, WITHOUT COMPLICATIONS Code(s): E87.6 - HYPOKALEMIA (2) Symptomatic anemia Current Visit: Yes Status: Acute Code(s): D64.9 - ANEMIA, UNSPECIFIED (3) Chronic kidney disease Current Visit: Yes Status: Acute Code(s): N18.9 - CHRONIC KIDNEY DISEASE, UNSPECIFIED (4) 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
[2023-12-27 13:09] LABS: Slide Review 1 YES
[2023-12-27 18:57] LABS: Hematocrit 32.7 % (35-47)
[2023-12-27 19:00] LABS: Hemoglobin 10.5 g/dL (12.0-16.0)
[2023-12-28] MEDS: NON-FORMULARY ITEM PO SCH (00:14)
[2023-12-28 04:44] VITALS: RESP 16
[2023-12-28 04:46] LABS: Basophil (Absolute #) 0 x10^3/uL (0-0.4); Eosinophil % 0.5 % (0.00-5.0); Eosinophil (Absolute #) 0.02 x10^3/uL (0-0.5); Hematocrit 30.6 % (35-47); Hemoglobin 9.8 g/dL (12.0-16.0); IMMATURE GRAN # 0.02 x10^3u/L (0.00-0.03); IMMATURE GRAN % 0.5 % (0.00-0.4); Lymphocyte (Absolute #) 1.21 x10^3/uL (1.0-4.6); Lymphocytes % 29.9 % (24.0-44.0); Mean Corpuscular Hemoglobin 29.8 pg (26-32); Mean Platelet Volume 10.8 fL (7.5-11.0); Monocytes % 12.3 % (0.0-12.0); Neutrophil % 56.8 % (36.0-66.0); Platelet Count 125 x10^3/uL (150-450); Red Blood Count 3.29 x10^6/uL (4.1-5.4); Red Cell Distribution Width 15.8 % (11.5-14.0); White Blood Count 4.1 x10^3/uL (4.0-10.5)
[2023-12-28 05:03] LABS: ALBUMIN 1.9 g/dL (3.5-5.0); ANION GAP 10.4 MEQ/L (5-15); BILIRUBIN,TOTAL 1.2 mg/dL (0.2-1.3); Calcium 7.3 mg/dL (8.4-10.2); Creatinine 1 1.65 mg/dL (0.52-1.04); EST GLOMERULAR FILTRATION RATE 39.8 ML/MIN; Total Protein 5.9 g/dL (6.3-8.2)
[2023-12-28] MEDS: POTASSIUM CHLORIDE 20 mEq IN WATER 100ML 20 MEQ/100 ML BAG IV SCH (06:06)
[2023-12-28] MEDS ORDERED: PATIENT OWN MEDICATION PO SCH (07:30)
--- NOTE | 2023-12-28 09:08 | PCM.DS ---
Discharge Summary Date of Admission: 12/26/23 17:02 Date of Discharge: 12/28/23 Admitting Physician: DUSTIN MUELLER MD Primary Care Provider: OSCAR CALVILLO DO Allergies Allergies acetaminophen [From Tylenol] Allergy (Severe, Verified 11/21/23 15:26) Swelling of Tongue and Lips THROAT SWELL AND BREATHING DIFFICULTY hydrocodone [From Lortab] Allergy (Severe, Verified 11/21/23 15:26) Swelling of Tongue and Lips natalizumab [From Tysabri] Allergy (Severe, Verified 11/21/23 15:26) Hives onion Allergy (Severe, Verified 11/21/23 15:26) Swelling of Tongue and Lips raw onion only tomato Allergy (Severe, Verified 11/21/23 15:26) Tightness of Throat latex Allergy (Intermediate, Verified 11/21/23 15:26) Hives morphine Adverse Reaction (Severe, Verified 11/21/23 15:26) makes pt mad/angry/volitle Hospital Summary - Hospital Course Hospital Course: is a 43 year old female with extensive pmhx of Migraines, seizures, DVT, PE, Crohns enterocolitis s/p enterostomy, fistula, GERD, smoker, uterine cancer, bipolar/depression, renal disease, pancreatitis, intracranial cranial bleed who presented to ED 12/26/23 after under the advisement of her PCP due to a critical potassium on labs drawn yesterday. Patient also noted with low hgb. Patient receives dialysis M-W-F (will change to M-F this coming week). She states she did not go to this past Thursday's appointment as she had an appt with her PCP. Last dialysis was Thursday. She has complaints of chronic abdominal pain from her fistula otherwise denies fever,cough, sob, cp, BRADSHAW, dizziness, N/V/D.In ED, patient mildly hypotensive otherwise vitals unremarkable. Lab findings remarkab le for normocytic anemia with Hgb at 7.4, plt at 106, potassium at 1.9, carbon dioxide at 20, BUN at 18, creat at 1.60, magnesium at 1.0, corrected calcium at 8.1. Patient received potassium, magnesium, and dilaudid in ED. Plan to replenish electrolytes and 1 unit of LPRBCs and most likely discharge tomorrow. Yesterday potassium and hemoglobin still low and replaced. Patient endorses chronic abdominal pain. States she was noticing blood in stools and hematuria about a week ago but nothing since. Hgb stable at 9.8 today. K+ 3.0 and replaced. She has an appointment for dialysis at 1:00pm today and would like to go. She denies any further concerns at this time. - Vitals & Intake/Output Vital Signs: Vital Signs Temperature 97.6 F 12/28/23 07:09 Pulse Rate 91 H 12/28/23 07:09 Respiratory Rate 16 12/28/23 07:09 Blood Pressure 92/59 12/28/23 07:09 O2 Sat by Pulse Oximetry 99 12/28/23 07:09 Intake & Output: Intake & Output 12/25/23 12/26/23 12/27/23 12/28/23 10:59 10:59 11:59 11:59 Intake Total 2358 Output Total 275 Balance 2083 Weight - Lab Result Diagrams: 12/28/23 04:40 12/28/23 04:40 Lab Results-Last 24 Hrs: Lab Results-Last 24 Hours 12/27/23 12/27/23 12/27/23 Range/Units 05:53 11:31 14:20 WBC (4.0-10.5) x10^3/uL RBC (4.1-5.4) x10^6/uL Hgb (12.0-16.0) g/dL Hct (35-47) % MCV (78-100) fL MCH (26-32) pg MCHC (32-36) g/dL RDW (11.5-14.0) % Plt Count (150-450) x10^3/uL MPV (7.5-11.0) fL Gran % (36.0-66.0) % Immature Gran % (Auto) (0.00-0.4) % Nucleat RBC Rel Count (0.00-0.1) % Eos # (Auto) (0-0.5) x10^3/uL Immature Gran # (Auto) (0.00-0.03) x10^3u/L Absolute Lymphs (auto) (1.0-4.6) x10^3/uL Absolute Monos (auto) (0.0-1.3) x10^3/uL Absolute Nucleated RBC (0.00-0.01) x10^3u/L Lymphocytes % (24.0-44.0) % Monocytes % (0.0-12.0) % Eosinophils % (0.00-5.0) % Basophils % (0.0-0.4) % Absolute Granulocytes (1.4-6.9) x10^3/uL Basophils # (0-0.4) x10^3/uL Sodium (135-145) mmol/L Potassium 3.0 L* D (3.5-5.1) mmol/L Chloride (98-107) mmol/L Carbon Dioxide (22-30) mmol/L Anion Gap (5-15) MEQ/L BUN (7-17) mg/dL Creatinine (0.52-1.04) mg/dL Estimated GFR ML/MIN Glucose (74-106) mg/dL POC Glucometer 84 (74 to 106) mg/dL Calcium (8.4-10.2) mg/dL Total Bilirubin (0.2-1.3) mg/dL AST (14-36) U/L ALT (0-35) U/L Alkaline Phosphatase (38-126) U/L Serum Total Protein (6.3-8.2) g/dL Albumin (3.5-5.0) g/dL Slides for Path Review YES 12/27/23 12/27/23 12/28/23 Range/Units 18:45 18:45 04:40 WBC 4.1 (4.0-10.5) x10^3/uL RBC 3.29 L (4.1-5.4) x10^6/uL Hgb 10.5 L D 9.8 L (12.0-16.0) g/dL Hct 32.7 L 30.6 L (35-47) % MCV 93.0 (78-100) fL MCH 29.8 (26-32) pg MCHC 32.0 (32-36) g/dL RDW 15.8 H (11.5-14.0) % Plt Count 125 L (150-450) x10^3/uL MPV 10.8 (7.5-11.0) fL Gran % 56.8 (36.0-66.0) % Immature Gran % (Auto) 0.5 H (0.00-0.4) % Nucleat RBC Rel Count 0.0 (0.00-0.1) % Eos # (Auto) 0.02 (0-0.5) x10^3/uL Immature Gran # (Auto) 0.02 (0.00-0.03) x10^3u/L Absolute Lymphs (auto) 1.21 (1.0-4.6) x10^3/uL Absolute Monos (auto) 0.50 (0.0-1.3) x10^3/uL Absolute Nucleated RBC 0.00 (0.00-0.01) x10^3u/L Lymphocytes % 29.9 (24.0-44.0) % Monocytes % 12.3 H (0.0-12.0) % Eosinophils % 0.5 (0.00-5.0) % Basophils % 0.0 (0.0-0.4) % Absolute Granulocytes 2.30 (1.4-6.9) x10^3/uL Basophils # 0 (0-0.4) x10^3/uL Sodium (135-145) mmol/L Potassium 2.7 L* (3.5-5.1) mmol/L Chloride (98-107) mmol/L Carbon Dioxide (22-30) mmol/L Anion Gap (5-15) MEQ/L BUN (7-17) mg/dL Creatinine (0.52-1.04) mg/dL Estimated GFR ML/MIN Glucose (74-106) mg/dL POC Glucometer (74 to 106) mg/dL Calcium (8.4-10.2) mg/dL Total Bilirubin (0.2-1.3) mg/dL AST (14-36) U/L ALT (0-35) U/L Alkaline Phosphatase (38-126) U/L Serum Total Protein (6.3-8.2) g/dL Albumin (3.5-5.0) g/dL Slides for Path Review 12/28/23 Range/Units 04:40 WBC (4.0-10.5) x10^3/uL RBC (4.1-5.4) x10^6/uL Hgb (12.0-16.0) g/dL Hct (35-47) % MCV (78-100) fL MCH (26-32) pg MCHC (32-36) g/dL RDW (11.5-14.0) % Plt Count (150-450) x10^3/uL MPV (7.5-11.0) fL Gran % (36.0-66.0) % Immature Gran % (Auto) (0.00-0.4) % Nucleat RBC Rel Count (0.00-0.1) % Eos # (Auto) (0-0.5) x10^3/uL Immature Gran # (Auto) (0.00-0.03) x10^3u/L Absolute Lymphs (auto) (1.0-4.6) x10^3/uL Absolute Monos (auto) (0.0-1.3) x10^3/uL Absolute Nucleated RBC (0.00-0.01) x10^3u/L Lymphocytes % (24.0-44.0) % Monocytes % (0.0-12.0) % Eosinophils % (0.00-5.0) % Basophils % (0.0-0.4) % Absolute Granulocytes (1.4-6.9) x10^3/uL Basophils # (0-0.4) x10^3/uL Sodium 139 (135-145) mmol/L Potassium 3.0 L* (3.5-5.1) mmol/L Chloride 115 H (98-107) mmol/L Carbon Dioxide 17 L (22-30) mmol/L Anion Gap 10.4 (5-15) MEQ/L BUN 15 (7-17) mg/dL Creatinine 1.65 H (0.52-1.04) mg/dL Estimated GFR 39.8 ML/MIN Glucose 96 (74-106) mg/dL POC Glucometer (74 to 106) mg/dL Calcium 7.3 L (8.4-10.2) mg/dL Total Bilirubin 1.20 (0.2-1.3) mg/dL AST 27 (14-36) U/L ALT 16 (0-35) U/L Alkaline Phosphatase 92 (38-126) U/L Serum Total Protein 5.9 L (6.3-8.2) g/dL Albumin 1.9 L (3.5-5.0) g/dL Slides for Path Review Micro Results-Entire Visit: Accuchecks Date 12/27/23 Date 12/27/23 Time 17:17 Time 11:40 - Procedures and Test Procedures and Tests throughout Hospitalization: Therapy Orders & Screens 12/26/23 18:33 OT Screen per Nursing Assess ONCE Comment: Protocol Order Physician Instructions: Greater than 3 points order OT Admission Screening Reason For Exam: Triggered on Admission Diagnosis: severe hypokalemia, symptomatic anemia Open Wound/Cellutlitis/Pressure Ulcers: Yes Acute Fx/ORIF/Change in wt bearing status: No Severe MUSCULOSKELETAL pain: No ADL Dysfunction: No Acute CVA w/Hemiparesis/Hemiplegia: No Decreased Functional Mobility/Strength: No Sprain/Strain: No Acute Post-op Mobility Dysfunction: No Total Points: 5 PT Screen per Nursing Assess ONCE Comment: Protocol Order Physician Instructions: Greater than 3 points order PT Admission Screenin Reason For Exam: Triggered on Admission Diagnosis: severe hypokalemia, symptomatic anemia Open Wound/Cellutlitis/Pressure Ulcers: Yes Acute Fx/ORIF/Change in wt bearing status: No Severe MUSCULOSKELETAL pain: No ADL Dysfunction: No Acute CVA w/Hemiparesis/Hemiplegia: No Decreased Functional Mobility/Strength: No Sprain/Strain: No Acute Post-op Mobility Dysfunction: No Total Points: 5 Discharge Exam General Appearance: no apparent distress, alert Neurologic Exam: alert, oriented x 3, cooperative, normal mood/affect, nml cerebellar function, sensation nml, No motor deficits Eye Exam: PERRL, EOMI, eyes nml inspection Ears, Nose, Throat Exam: normal ENT inspection, pharynx normal, moist mucous membranes Neck Exam: normal inspection, non-tender, supple, full range of motion Respiratory Exam: normal breath sounds, lungs clear, No respiratory distress Cardiovascular Exam: regular rate/rhythm, normal heart sounds Gastrointestinal/Abdomen Exam: soft, tenderness (chronic per pt.), No mass Pelvic Exam: deferred Rectal Exam: deferred Back Exam: normal inspection, normal range of motion, No CVA tenderness, No vertebral tenderness Extremity Exam: normal inspection, normal range of motion Skin Exam: normal color, warm, dry Wound Assessment: Skin/Wound Assessment Wound/Incision Assessment Start: 12/27/23 06:41 Text: Status: Active Freq: Q6H Protocol: Document 12/27/23 06:43 AR (Rec: 12/27/23 06:47 AR [id number]) Wound/Incision Assessment Medial Abdomen Wound Assessment Shift Assessment Wound Type fistula Dressing Status Changed Drainage Amount Large Drainage Description Yellow Drainage Odor Foul Odor General Appearance Reddened Surrounding Tissue [place],Edematous Topical Solution/Irrigant Saline Irrigant Primary Dressing Gauze Pads Secondary Dressing abd pads Comment one wound above belly button and one wound below belly button. irrigated with sterile water and dressed with 4x4 gauze, covered with abd pads and tape. Wound Photo Photo Taken No Final Diagnosis/Problem List - Final Discharge Diagnosis/Problem (1) Hypokalemia Current Visit: Yes Status: Acute Assessment & Plan: - tele - K+ 3.0 replaced - has dialysis today Code(s): E87.6 - HYPOKALEMIA (2) Chronic kidney disease Current Visit: Yes Status: Chronic Assessment & Plan: -Dialysis M-F schedule starting next week, last dialysis 12/23/23 -Monitor renal/lytes -Avoid NSAIDs/RENEE/ARB Code(s): N18.9 - CHRONIC KIDNEY DISEASE, UNSPECIFIED (3) Symptomatic anemia Current Visit: Yes Status: Acute Assessment & Plan: - received 3 units of PRBC during stay. 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 Current Visit: No Status: Acute Assessment & Plan: -noted, recent hospitalization at [facility], discharged 12/08/23, states she has follow up soon but unsure when -Diluadid for pain control Code(s): K63.2 - FISTULA OF INTESTINE (5) Hypocalcemia Current Visit: No Status: Acute Assessment & Plan: -corrected erasmo at 8.1, will continue to monitor Code(s): E83.51 - HYPOCALCEMIA (6) Hypomagnesemia Current Visit: No Status: Acute Assessment & Plan: - resolved Code(s): E83.42 - HYPOMAGNESEMIA (7) Crohn disease Current Visit: No Status: Chronic Assessment & Plan: -noted, adds complexity Code(s): K50.90 - CROHN'S DISEASE, UNSPECIFIED, WITHOUT COMPLICATIONS - Discharge Discharge Date: 12/28/23 Disposition: Home, Self-Care Condition: Fair Prescriptions: Continue Ferrous Sulfate 325 mg [Feosol 325 mg] 325 mg PO UD Ondansetron ODT 4 MG [Zofran Odt 4 mg] 1 tab SL Q8HPRN PRN PRN Reason: Nausea Apixaban [Eliquis] 2.5 mg PO BID Fluconazole 200 mg PO UD Fludrocortisone Acetate 0.1 mg PO BID Potassium Chloride in Water [Potassium Cl 10 Meq/100 ml Fidelia] 15 meq PO DAILY Midodrine HCl [Proamatine] 15 mg PO Q6H Atorvastatin Calcium 40 mg PO DAILY Pantoprazole 20 mg [Protonix 20MG Tablet] 20 mg PO DAILY Potassium Chloride 15 ml PO DAILY Additional Instructions: Follow up for dialysis today, repeat labs will be checked at that time. Follow up with: OSCAR CALVILLO DO [Primary Care Provider] - 01/05/24 11:00 am
[2023-12-28] MEDS ORDERED: FLUCONAZOLE 200 MG PO SCH ×2 (10:00→18:59)
[2023-12-28] MEDS ORDERED: FEOSOL 325 MG PO SCH (10:00)
[2023-12-28] MEDS ORDERED: Diflucan 100 MG PO SCH (10:00)
[2023-12-28 11:35] VITALS: BP 104/62; PULSE 80; TEMP 97.8; O2SAT 95
== END 2023-12-28 13:05 | disposition home or self-care (01) ==
LOC: ED 13:35 → MED SURG 17:02
PROVIDERS: ADMIT Internal Medicine; ATTEND Internal Medicine
DX: E87.6 Hypokalemia (principal); N18.9 Chronic kidney disease, unspecified; D64.9 Anemia, unspecified; K63.2 Fistula of intestine; E83.51 Hypocalcemia; E83.42 Hypomagnesemia; K50.90 Crohn's disease, unspecified, without complications; Z79.01 Long term (current) use of anticoagulants; Z79.899 Other long term (current) drug therapy; Z20.828 Contact with and (suspected) exposure to other viral communicable diseases; Z85.42 Personal history of malignant neoplasm of other parts of uterus; Z86.718 Personal history of other venous thrombosis and embolism
CPT/HCPCS: 36415; 80053; 82947; 83036; 83735; 84132; 85014; 85018; 85025; 86850; 86900; 86901; 86922; 96374; 96375; 99284; 99291; P9016; Q3014; J1170; J1642; J2405; J2997; J3480; A9270-GY; J3475

== ENCOUNTER 2023-12-29 13:20 | Emergency (ER) | payer MEDICARE ==
[2023-12-29] MEDS ORDERED: Sodium Chloride 0.9% 1000 ML 1,000 ML ONE (13:53)
[2023-12-29] MEDS: Sodium Chloride 0.9% 1000 ML 1,000 ML IV SCH (13:54)
[2023-12-29 14:09] LABS: Absolute Neutrophil Ct (ANC) 3.06 x10^3/uL (1.4-6.9); BASOPHIL % 0.2 % (0.0-0.4); Basophil (Absolute #) 0.01 x10^3/uL (0-0.4); Eosinophil % 0.4 % (0.00-5.0); Eosinophil (Absolute #) 0.02 x10^3/uL (0-0.5); Hematocrit 31.2 % (35-47); Hemoglobin 9.9 g/dL (12.0-16.0); IMMATURE GRAN # 0.02 x10^3u/L (0.00-0.03); IMMATURE GRAN % 0.4 % (0.00-0.4); Lymphocyte (Absolute #) 1.72 x10^3/uL (1.0-4.6); Lymphocytes % 30.3 % (24.0-44.0); Mean Cell Volume 93.4 fL (78-100); Mean Corpuscular Hemoglobin 29.6 pg (26-32); Mean Corpuscular Hgb Concent. 31.7 g/dL (32-36); Mean Platelet Volume 10.6 fL (7.5-11.0); Monocyte (Absolute #) 0.84 x10^3/uL (0.0-1.3); Monocytes % 14.8 % (0.0-12.0); Neutrophil % 53.9 % (36.0-66.0); Platelet Count 141 x10^3/uL (150-450); Red Blood Count 3.34 x10^6/uL (4.1-5.4); Red Cell Distribution Width 15.5 % (11.5-14.0); White Blood Count 5.7 x10^3/uL (4.0-10.5)
[2023-12-29 14:25] VITALS: TEMP 97.2
[2023-12-29 14:29] LABS: ANION GAP 10.6 MEQ/L (5-15); BILIRUBIN,TOTAL 1.1 mg/dL (0.2-1.3); Calcium 7.3 mg/dL (8.4-10.2); Creatinine 1 1.53 mg/dL (0.52-1.04); EST GLOMERULAR FILTRATION RATE 43.6 ML/MIN; Total Protein 6.2 g/dL (6.3-8.2)
[2023-12-29 14:35] LABS: Potassium 2.8 mmol/L (3.5-5.1)
[2023-12-29 14:40] LABS: ADD URINE CULTURE? YES (NO); Appearance Cloudy (Clear); Bacteria Moderate /HPF (None Seen); Bilirubin Negative (Negative); Blood Moderate (Negative); Epithelial Cells Rare /HPF (None Seen); Glucose, Urine Negative (Negative); Hyaline Casts NONE SEEN /LPF (0-2); Ketones Negative (Negative); Leukocyte Esterase Large (Negative); Nitrite Negative (Negative); Protein,Urine Dip 100 (Negative); RBC 0-2 /HPF (0-5); Specific Gravity 1.015 (1.005-1.030); Urobilinogen 0.2 mg/dL (0.2); WBC 51-100 /HPF (0-5)
[2023-12-29 14:52] LABS: Amphetamine,Urine NEGATIVE (NEGATIVE); Barbiturate,Urine NEGATIVE (NEGATIVE); Benzodiazepine,Urine NEGATIVE (NEGATIVE); Cocaine,Urine NEGATIVE (NEGATIVE); Methadone,Urine NEGATIVE (NEGATIVE); Opiate,Urine POSITIVE (NEGATIVE); PCP,Urine NEGATIVE (NEGATIVE); THC,Urine NEGATIVE (NEGATIVE)
[2023-12-29] MEDS ORDERED: POTASSIUM CHLORIDE 20 mEq IN WATER 100ML 100 ML IV ONE ×2 (14:58→17:23)
[2023-12-29] MEDS: POTASSIUM CHLORIDE 20 mEq IN WATER 100ML 20 MEQ/100 ML BAG IV SCH (14:59)
[2023-12-29] MEDS ORDERED: Magnesium 1 Gm / 100 Ml D5W*** 100 ML IV ONE ×2 (15:01→17:23)
[2023-12-29] MEDS: Magnesium 1 Gm / 100 Ml D5W*** 100 ML IV SCH (15:02)
[2023-12-29] MEDS ORDERED: ZOFRAN ODT 4 MG ONE (15:10)
[2023-12-29] MEDS: ZOFRAN ODT 4 MG PO ONE (15:11)
[2023-12-29] MEDS ORDERED: Hydromorphone 1 mg/ml Injection ONE ×2 (15:41→20:57)
[2023-12-29] MEDS: Hydromorphone 1 mg/ml Injection IV ONE ×2 (16:06→21:04)
[2023-12-29] MEDS: Klor Con PO ONE (16:15)
--- NOTE | 2023-12-29 16:42 | XRAY ---
Indication: Abdominal pain for months. History of Crohn's disease. Multiple contiguous axial images obtained through abdomen and pelvis without contrast. Comparison: November 21, 2023 Lung bases demonstrates new small bibasilar effusions with minimal compressive atelectasis. Heart not enlarged again with stable small pericardial effusion/thickening and right central venous access catheter. Noncontrasted stomach and bowel loops remain nonobstructed. Stable PEG tube with catheter tip in jejunum just left of midline, 13.5 cm splenomegaly, and previous cholecystectomy. Stable ileocolonic anastomosis with adjacent mesenteric stranding. Previous air bubbles adjacent to anastomosis (image [id number]) have diminished with now single air bubble. Tiny air bubble right lateral mid abdomen (image 37) unchanged. Walled off fluid collection. Remaining liver, pancreas, spleen, adrenal glands, kidneys, ureters, bladder, and aorta are unremarkable for noncontrast exam. Impression: 1. Again status post ileocolonic anastomosis with mesenteric stranding adjacent to anastomosis either postoperative vs Crohn's. Previous free air bubbles have diminished. 2. Stable PEG tube in situ, small pericardial effusion, and splenomegaly. 3. New small bibasilar effusions.
[2023-12-29 17:48] VITALS: O2SAT 97
--- NOTE | 2023-12-29 20:04 | ERPHSYRPT ---
- History of Present Illness Time Seen by Provider: 12/29/23 13:40 Historian: patient Exam Limitations: no limitations Patient Subjective Stated Complaint: Pt states "I was released from the hospital yesterday and started to vomit last night and have been vomiting all day" Triage Nursing Assessment: Pt presented alert and oriented X 3, skin wpd. Pt ambulates with an upright steady gait, able to speak in clear full sentences. PT resting comfortably on the bed. Physician History: Patient is a 43-year-old female with history of uterine cancer, Crohn's end- stage renal disease on hemodialysis presents to our ED for evaluation of nausea vomiting abdominal pain. Patient was discharged yesterday from our hospital for the same. Patient received hemodialysis on Thursday and Fridays. However she states that it was recently changed to Wednesdays as well. However she has yet to start her Thursday sessions. Symptoms are moderate in intensity. No specific worsening improving factors. Patient voices no other complaints or concerns at this time. Portions of this note were created with voice recognition technology. There may be grammatical, spelling, punctuation or sound alike errors Timing/Duration: today Activities at Onset: none Quality: aching Abdominal Pain Onset Location: generalized abdomen Pain Radiation: no radiation Severity of Pain-Max: moderate Severity of Pain-Current: mild Modifying Factors: Improves With: nothing Associated Symptoms: denies symptoms Previous symptoms: no prior history Allergies/Adverse Reactions: acetaminophen [From Tylenol] Allergy (Severe, Verified 11/21/23 15:26) Swelling of Tongue and Lips THROAT SWELL AND BREATHING DIFFICULTY hydrocodone [From Lortab] Allergy (Severe, Verified 11/21/23 15:26) Swelling of Tongue and Lips natalizumab [From Tysabri] Allergy (Severe, Verified 11/21/23 15:26) Hives onion Allergy (Severe, Verified 11/21/23 15:26) Swelling of Tongue and Lips raw onion only tomato Allergy (Severe, Verified 11/21/23 15:26) Tightness of Throat latex Allergy (Intermediate, Verified 11/21/23 15:26) Hives morphine Adverse Reaction (Severe, Verified 11/21/23 15:26) makes pt mad/angry/volitle Home Medications: Apixaban [Eliquis] 2.5 mg PO BID 08/11/23 [History] Ferrous Sulfate 325 mg [Feosol 325 mg] 325 mg PO UD 08/11/23 [History] Ondansetron ODT 4 MG [Zofran Odt 4 mg] 1 tab SL [id number] PRN 08/11/23 [History] Fluconazole 200 mg PO UD 10/18/23 [History] Fludrocortisone Acetate 0.1 mg PO BID 11/21/23 [History] Midodrine HCl [Proamatine] 15 mg PO Q6H 11/21/23 [History] Potassium Chloride in Water [Potassium Cl 10 Meq/100 ml Fidelia] 15 meq PO DAILY 11/21/23 [History] Atorvastatin Calcium 40 mg PO DAILY 12/26/23 [History] Pantoprazole 20 mg [Protonix 20MG Tablet] 20 mg PO DAILY 12/26/23 [History] Potassium Chloride 15 ml PO DAILY 12/26/23 [History] Hx Tetanus, Diphtheria Vaccination/Date Given: No Hx Influenza Vaccination/Date Given: No Hx Pneumococcal Vaccination/Date Given: No Immunizations Up to Date: No Travel Risk - International Travel Have you traveled outside of the country in past 3 weeks: No - Coronavirus Screening Are you exhibiting any of the following symptoms?: Yes Symptoms: Vomiting/Diarrhea Close contact with a COVID-19 positive Pt in past 14-21 Days: No - Vaccine Status Have you recieved a Covid-19 vaccination: Yes 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 - Vaccination Dates Dates if Unknown: unknown - Review of Systems Constitutional: No Symptoms, No Fever, No Chills Eyes: No Symptoms Ears, Nose, & Throat: No Symptoms Respiratory: No Symptoms, No Cough, No Dyspnea Cardiac: No Symptoms, No Chest Pain, No Edema, No Syncope Abdominal/Gastrointestinal: No Symptoms, No Abdominal Pain, No Nausea, No Vomiting, No Diarrhea Genitourinary Symptoms: No Symptoms, No Dysuria Musculoskeletal: No Symptoms, No Back Pain, No Neck Pain Skin: No Symptoms, No Rash Neurological: No Symptoms, No Dizziness, No Focal Weakness, No Sensory Changes Psychological: No Symptoms Endocrine: No Symptoms Hematologic/Lymphatic: No Symptoms Immunological/Allergic: No Symptoms All Other Systems: Reviewed and Negative - Past Medical History Pertinent Past Medical History: Yes Neurological History: Migraines, Seizures ENT History: No Pertinent History Cardiac History: Deep Vein Thrombosis Respiratory History: Pulmonary Embolism Endocrine Medical History: No Pertinent History Musculoskeletal History: No Pertinent History GI Medical History: Crohns Disease, GERD, Pancreatitis, Ulcer History: Renal Disease Psycho-Social History: Anxiety, Bipolar, Depression Female Reproductive Disorders: Fibroids, Uterine Cancer Other Medical History: unknown source of acute kidney failure 04/28/2022. 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 - Past Surgical History Past Surgical History: Yes Neuro Surgical History: No Pertinent History Cardiac: No Pertinent History Respiratory: No Pertinent History Gastrointestinal: Cholecystectomy, Other Genitourinary: No Pertinent History Musculoskeletal: Orthopedic Surgery Female Surgical History: Hysterectomy, Dilation & Curettage, Other Other Surgical History: intestine resect 4-5 times, pins R foot, multiple port placement - Social History Smoking Status: Light tobacco smoker Exposure to second hand smoke: Yes Drug Use: marijuana Patient Lives Alone: No - Female History Hx Last Menstrual Period: none Hx Now: No - Nursing Vital Signs Nursing Vital Signs: Initial Vital Signs Temperature 97.7 F 12/29/23 13:31 Pulse Rate 78 12/29/23 13:31 Respiratory Rate 20 12/29/23 13:31 Blood Pressure 111/66 12/29/23 13:31 O2 Sat by Pulse Oximetry 98 12/29/23 13:31 Pain Scale Pain Intensity 4 - Physical Exam General Appearance: no apparent distress, alert Eye Exam: PERRL/EOMI, eyes nml inspection Ears, Nose, Throat Exam: normal ENT inspection, pharynx normal, moist mucous membranes Neck Exam: normal inspection, non-tender, supple, full range of motion Respiratory Exam: normal breath sounds, lungs clear, No respiratory distress Cardiovascular Exam: regular rate/rhythm, normal heart sounds, normal peripheral pulses Gastrointestinal/Abdomen Exam: soft, other (Diffuse abdominal pain), No tenderness, No mass Back Exam: normal inspection, normal range of motion, No CVA tenderness, No vertebral tenderness Extremity Exam: normal inspection, normal range of motion, pelvis stable Neurologic Exam: alert, oriented x 3, cooperative, normal mood/affect, nml cerebellar function, sensation nml, No motor deficits Skin Exam: normal color, warm, dry SpO2 Interpretation: normal SpO2: 97 O2 Delivery: Room Air - Course Nursing assessment & vital signs reviewed: Yes - CT Exams Abdomen/Pelvis CT Interpretation: Tele-radiologist Report Ordered Tests: Active Orders 24 hr Category Date Time Status Clean Catch Urine Specimen STAT Care 12/29/23 13:39 Active IV Insertion STAT Care 12/29/23 13:44 Active Telemetry q4h Care 12/29/23 14:41 Active ABDOMEN AND PELVIS W/0 CONTRAS [CT] Stat Exams 12/29/23 15:17 Completed BMP Stat Lab 12/29/23 20:53 Ordered CBC W DIFF Stat Lab 12/29/23 14:01 Completed CMP Stat Lab 12/29/23 14:01 Completed CULTURE,URINE Stat Lab 12/29/23 13:40 Received LIPASE Stat Lab 12/29/23 14:01 Completed TROPONIN Q4H Lab 12/29/23 14:01 Completed TROPONIN Q4H Lab 12/29/23 18:17 Completed TROPONIN Q4H Lab 12/29/23 21:45 Ordered UA W/RFX UR CULTURE Stat Lab 12/29/23 13:40 Completed Urine Triage Profile Stat Lab 12/29/23 13:40 Completed Medication Summary Generic Name Dose Route Start Last Admin Trade Name Freq PRN Reason Stop Dose Admin Sodium Chloride 1,000 mls @ 100 mls/hr 12/29/23 13:45 12/29/23 13:54 Sodium Chloride 0.9% 1000 Ml IV 01/28/24 13:44 100 mls/hr .Q10H ROMULO Administration Magnesium Sulfate/Dextrose 100 mls @ 100 mls/hr 12/29/23 14:45 12/29/23 17:26 Magnesium 1 Gm / 100 Ml D5w IV 12/29/23 16:44 100 mls/hr Q1H ROMULO Administration Potassium Chloride 20 meq in 100 mls @ 50 mls/hr 12/29/23 14:45 12/29/23 17:26 Potassium Chloride 20 Meq In Water 100ml IV 12/29/23 18:44 50 mls/hr Q2H ROMULO Administration Discontinued Medications Generic Name Dose Route Start Last Admin Trade Name Freq PRN Reason Stop Dose Admin Hydromorphone HCl 1 mg 12/29/23 15:18 12/29/23 16:06 Hydromorphone 1 Mg/1ml Inj IV 12/29/23 15:19 1 mg STAT ONE Administration Hydromorphone HCl Confirm 12/29/23 15:41 Hydromorphone 1 Mg/1ml Inj Administered 12/29/23 15:42 Dose 1 mg .ROUTE .STK-MED ONE Hydromorphone HCl 1 mg 12/29/23 19:57 Hydromorphone 1 Mg/1ml Inj IV 12/29/23 19:58 STAT ONE Hydromorphone HCl Confirm 12/29/23 20:57 Hydromorphone 1 Mg/1ml Inj Administered 12/29/23 20:58 Dose 1 mg .ROUTE .STK-MED ONE Ceftriaxone Sodium 1 gm in 100 mls @ 200 mls/hr 12/29/23 19:58 Rocephin 1 Gm / 100 Ml Nacl IV 12/29/23 20:27 STAT ONE Ceftriaxone Sodium Confirm 12/29/23 20:57 Rocephin 1 Gm / 100 Ml Nacl Administered 12/29/23 20:58 Dose 1 gm in 100 mls @ ud IV .STK-MED ONE Ondansetron HCl 4 mg 12/29/23 15:09 12/29/23 15:11 Zofran 4 Mg/Udtablet Orally Disintegrating PO 12/29/23 15:10 4 mg STAT ONE Administration Ondansetron HCl Confirm 12/29/23 15:10 Zofran 4 Mg/Udtablet Orally Disintegrating Administered 12/29/23 15:11 Dose 4 mg .ROUTE .STK-MED ONE Potassium Chloride 40 meq 12/29/23 14:40 12/29/23 16:15 Potassium Chloride Tab 10 Meq Tab PO 12/29/23 14:41 Not Given STAT ONE Lab/Rad Data: Laboratory Result Diagrams 12/29/23 14:01 12/29/23 14:01 Laboratory Results 12/29/23 12/29/23 12/29/23 Range/Units 18:17 14:01 14:01 WBC (4.0-10.5) x10^3/uL RBC (4.1-5.4) x10^6/uL Hgb (12.0-16.0) g/dL Hct (35-47) % MCV (78-100) fL MCH (26-32) pg MCHC (32-36) g/dL RDW (11.5-14.0) % Plt Count (150-450) x10^3/uL MPV (7.5-11.0) fL Gran % (36.0-66.0) % Immature Gran % (Auto) (0.00-0.4) % Nucleat RBC Rel Count (0.00-0.1) % Eos # (Auto) (0-0.5) x10^3/uL Immature Gran # (Auto) (0.00-0.03) x10^3u/L Absolute Lymphs (auto) (1.0-4.6) x10^3/uL Absolute Monos (auto) (0.0-1.3) x10^3/uL Absolute Nucleated RBC (0.00-0.01) x10^3u/L Lymphocytes % (24.0-44.0) % Monocytes % (0.0-12.0) % Eosinophils % (0.00-5.0) % Basophils % (0.0-0.4) % Absolute Granulocytes (1.4-6.9) x10^3/uL Basophils # (0-0.4) x10^3/uL Sodium 139 (135-145) mmol/L Potassium 2.8 L* D (3.5-5.1) mmol/L Chloride 115 H (98-107) mmol/L Carbon Dioxide 15 L* (22-30) mmol/L Anion Gap 10.6 (5-15) MEQ/L BUN 14 (7-17) mg/dL Creatinine 1.53 H (0.52-1.04) mg/dL Estimated GFR 43.6 ML/MIN Glucose 94 (74-106) mg/dL Calcium 7.3 L (8.4-10.2) mg/dL Total Bilirubin 1.10 (0.2-1.3) mg/dL AST 29 (14-36) U/L ALT 19 (0-35) U/L Alkaline Phosphatase 102 (38-126) U/L Troponin I < 0.012 < 0.012 (0.000-0.034) ng/mL Serum Total Protein 6.2 L (6.3-8.2) g/dL Albumin 2.0 L (3.5-5.0) g/dL Lipase 27 (23-300) U/L Urine Color (Yellow) Urine Appearance (Clear) Urine pH (4.6-8.0) Ur Specific Newell (1.005-1.030) Urine Protein (Negative) Urine Glucose (UA) (Negative) mg/dL Urine Ketones (Negative) Urine Blood (Negative) Urine Nitrite (Negative) Urine Bilirubin (Negative) Urine Urobilinogen (0.2) mg/dL Ur Leukocyte Esterase (Negative) U Hyaline Cast (Auto) (0-2) /LPF Urine Microscopic RBC (0-5) /HPF Urine Microscopic WBC (0-5) /HPF Ur Epithelial Cells (None Seen) /HPF Calcium Oxalate Crystal (None Seen) /HPF Urine Bacteria (None Seen) /HPF Urine Culture Reflexed (NO) Urine Opiates Level (NEGATIVE) Ur Methadone (NEGATIVE) Urine Barbiturates (NEGATIVE) Ur Phencyclidine (PCP) (NEGATIVE) Urine Amphetamine (NEGATIVE) U Benzodiazepine Level (NEGATIVE) Urine Cocaine (NEGATIVE) Urine Marijuana (THC) (NEGATIVE) 12/29/23 12/29/23 12/29/23 Range/Units 14:01 13:40 13:40 WBC 5.7 (4.0-10.5) x10^3/uL RBC 3.34 L (4.1-5.4) x10^6/uL Hgb 9.9 L (12.0-16.0) g/dL Hct 31.2 L (35-47) % MCV 93.4 (78-100) fL MCH 29.6 (26-32) pg MCHC 31.7 L (32-36) g/dL RDW 15.5 H (11.5-14.0) % Plt Count 141 L (150-450) x10^3/uL MPV 10.6 (7.5-11.0) fL Gran % 53.9 (36.0-66.0) % Immature Gran % (Auto) 0.4 (0.00-0.4) % Nucleat RBC Rel Count 0.0 (0.00-0.1) % Eos # (Auto) 0.02 (0-0.5) x10^3/uL Immature Gran # (Auto) 0.02 (0.00-0.03) x10^3u/L Absolute Lymphs (auto) 1.72 (1.0-4.6) x10^3/uL Absolute Monos (auto) 0.84 (0.0-1.3) x10^3/uL Absolute Nucleated RBC 0.00 (0.00-0.01) x10^3u/L Lymphocytes % 30.3 (24.0-44.0) % Monocytes % 14.8 H (0.0-12.0) % Eosinophils % 0.4 (0.00-5.0) % Basophils % 0.2 (0.0-0.4) % Absolute Granulocytes 3.06 (1.4-6.9) x10^3/uL Basophils # 0.01 (0-0.4) x10^3/uL Sodium (135-145) mmol/L Potassium (3.5-5.1) mmol/L Chloride (98-107) mmol/L Carbon Dioxide (22-30) mmol/L Anion Gap (5-15) MEQ/L BUN (7-17) mg/dL Creatinine (0.52-1.04) mg/dL Estimated GFR ML/MIN Glucose (74-106) mg/dL Calcium (8.4-10.2) mg/dL Total Bilirubin (0.2-1.3) mg/dL AST (14-36) U/L ALT (0-35) U/L Alkaline Phosphatase (38-126) U/L Troponin I (0.000-0.034) ng/mL Serum Total Protein (6.3-8.2) g/dL Albumin (3.5-5.0) g/dL Lipase (23-300) U/L Urine Color Yellow (Yellow) Urine Appearance Cloudy A (Clear) Urine pH 6.0 (4.6-8.0) Ur Specific Newell 1.015 (1.005-1.030) Urine Protein 100 A (Negative) Urine Glucose (UA) Negative (Negative) mg/dL Urine Ketones Negative (Negative) Urine Blood Moderate A (Negative) Urine Nitrite Negative (Negative) Urine Bilirubin Negative (Negative) Urine Urobilinogen 0.2 (0.2) mg/dL Ur Leukocyte Esterase Large A (Negative) U Hyaline Cast (Auto) NONE SEEN (0-2) /LPF Urine Microscopic RBC 0-2 (0-5) /HPF Urine Microscopic WBC 51-100 A (0-5) /HPF Ur Epithelial Cells Rare (None Seen) /HPF Calcium Oxalate Crystal 3-5 A (None Seen) /HPF Urine Bacteria Moderate A (None Seen) /HPF Urine Culture Reflexed YES (NO) Urine Opiates Level POSITIVE A (NEGATIVE) Ur Methadone NEGATIVE (NEGATIVE) Urine Barbiturates NEGATIVE (NEGATIVE) Ur Phencyclidine (PCP) NEGATIVE (NEGATIVE) Urine Amphetamine NEGATIVE (NEGATIVE) U Benzodiazepine Level NEGATIVE (NEGATIVE) Urine Cocaine NEGATIVE (NEGATIVE) Urine Marijuana (THC) NEGATIVE (NEGATIVE) - Progress Progress: improved Progress Note: 12/29/23 20:37 Transfer to [facility] excepted per Dr. Casillas via auto except. Patient accepted at 8:37 PM. Plan of care discussed with patient. She agrees to transfer to [facility] for further evaluation and treatment. It is my feeling that patient's abdominal pain and nausea and vomiting is stemming from an opiate withdrawal. Upon arrival to our ED patient was requesting Dilaudid. Dilaudid was administered. Shortly thereafter patient symptoms completely resolved. Nausea vomiting resolved abdominal cramping resolved as well. Hypokalemia is likely least partially from vomiting. Patient is stable at this point. Will transfer to [facility] for definitive care. Portions of this note were created with voice recognition technology. There may be grammatical, spelling, punctuation or sound alike errors Complexity problem addressed is moderate acute complicated No critical care time Complex of data reviewed and analyzed extensive. Test ordered test reviewed results analyzed and correlated clinically with history physical examination. Management discussed with Dr. Casillas via the transfer center. Risk of complication and or risk of morbidity/mortality patient management is high. Patient requires transfer/higher level of care Vital stable. Time spent to transfer patient approximately 30 minutes. No social determinants of health present impede follow-up. Portions of this note were created with voice recognition technology. There may be grammatical, spelling, punctuation or sound alike errors 12/29/23 21:04 Counseled pt/family regarding: lab results, diagnosis, rad results - Departure Departure Disposition: Transfer Clinical Impression: Hypokalemia, Normocytic anemia, Metabolic acidosis, Abdominal pain, Mesenteric stranding, Pleural effusion, Pericardial effusion Condition: Stable Critical Care Time: No Referrals: OSCAR CALVILLO, [Primary Care Provider] - Follow up/PCP as directed
[2023-12-29] MEDS ORDERED: ROCEPHIN 1 GM / 100 ML NaCl 1 GM/100 ML IVPB IV ONE (20:57)
[2023-12-29] MEDS: ROCEPHIN 1 GM / 100 ML NaCl 1 GM/100 ML IVPB IV ONE (21:04)
[2023-12-29 21:08] VITALS: BP 120/74; PULSE 95; RESP 29
[2023-12-29 21:21] LABS: Calcium 7.2 mg/dL (8.4-10.2); Creatinine 1 1.4 mg/dL (0.52-1.04); EST GLOMERULAR FILTRATION RATE 48.5 ML/MIN
[2023-12-29 21:30] LABS: Potassium 3.4 mmol/L (3.5-5.1)
== END 2023-12-29 21:38 | disposition short-term general hospital (02) ==
LOC: ED 13:20
DX: R11.2 Nausea with vomiting, unspecified (principal); Z85.42 Personal history of malignant neoplasm of other parts of uterus; K50.90 Crohn's disease, unspecified, without complications; N18.6 End stage renal disease; E87.6 Hypokalemia; R10.9 Unspecified abdominal pain; Z79.01 Long term (current) use of anticoagulants; Z79.899 Other long term (current) drug therapy; Z20.828 Contact with and (suspected) exposure to other viral communicable diseases
CPT/HCPCS: 36000; 36415; 74176; 80048; 80053; 80307; 81001; 83690; 84484; 85025; 87086; 96374; 96375; 99285; J0696; J1170; J3475; J3480; Q0162

== ENCOUNTER 2024-01-01 12:51 | Emergency (ER) | payer MEDICARE ==
[2024-01-01 14:14] LABS: Absolute Neutrophil Ct (ANC) 2.91 x10^3/uL (1.4-6.9); BASOPHIL % 0.2 % (0.0-0.4); Basophil (Absolute #) 0.01 x10^3/uL (0-0.4); Eosinophil % 0.2 % (0.00-5.0); Eosinophil (Absolute #) 0.01 x10^3/uL (0-0.5); Hematocrit 31.1 % (35-47); Hemoglobin 9.8 g/dL (12.0-16.0); IMMATURE GRAN # 0.02 x10^3u/L (0.00-0.03); IMMATURE GRAN % 0.4 % (0.00-0.4); Lymphocyte (Absolute #) 1.34 x10^3/uL (1.0-4.6); Lymphocytes % 27.8 % (24.0-44.0); Mean Cell Volume 94.2 fL (78-100); Mean Corpuscular Hemoglobin 29.7 pg (26-32); Mean Corpuscular Hgb Concent. 31.5 g/dL (32-36); Mean Platelet Volume 10.9 fL (7.5-11.0); Monocyte (Absolute #) 0.53 x10^3/uL (0.0-1.3); Neutrophil % 60.4 % (36.0-66.0); Platelet Count 103 x10^3/uL (150-450); Red Cell Distribution Width 15.6 % (11.5-14.0); White Blood Count 4.8 x10^3/uL (4.0-10.5)
[2024-01-01 14:19] VITALS: RESP 18; TEMP 98; O2SAT 100
[2024-01-01 14:29] LABS: ANION GAP 6.7 MEQ/L (5-15); BILIRUBIN,TOTAL 0.9 mg/dL (0.2-1.3); Calcium 7.3 mg/dL (8.4-10.2); Creatinine 1 1.44 mg/dL (0.52-1.04); EST GLOMERULAR FILTRATION RATE 46.9 ML/MIN; Total Protein 6.5 g/dL (6.3-8.2)
[2024-01-01 14:40] LABS: Potassium 2.9 mmol/L (3.5-5.1)
--- NOTE | 2024-01-01 14:43 | ERPHSYRPT ---
- History of Present Illness Time Seen by Provider: 01/01/24 14:15 Source: patient Exam Limitations: no limitations Patient Subjective Stated Complaint: Patient c/o nausea/vomiting that started this am. Patient states, "this happens when my potassium is low." Patient states she went to hemodialysis yesterday but did not make her hemodialysis appointment today due to N/V. Triage Nursing Assessment: Patient brought back to ER. She is alert and or iented. NO cough. NO SOB. Skin slightly jaundiced. No active vomiting noted since she arrived in the ER. LINDSAY HUNT. Patient playing cards on her phone during most of the assessment. Permacath to right chest noted. Physician History: This is a 43-year-old white female patient of Dr. Calvillo who has known renal failure and is typically on Thursday and Thursday dialysis sessions. However, this week she did have a dialysis session on Thursday (2 days ago) because she was in the hospital here at [facility]. She was admitted on 12/26/2023 and discharged on 12/28/2023 for hypokalemia diagnosis and management. Patient was then seen the next day after discharge on 12/29/2023 in the emergency department and transferred to [facility] where she states she was evaluated and discharged to home. Patient has significant chronic medical issues including history of uterine cancer, renal failure on dialysis, abdominal wall fistulas, chronic anemia, DVT/pulmonary embolism on Eliquis, chronic metabolic acidosis, chronic low blood pressure on midodrine, anxiety and bipolar disorder. On the visit 12/29/2023 she had a pretty extensive workup including CT scan of the abdomen pelvis which showed nothing significantly different than prior CT scans of the abdomen pelvis. Timing/Duration: today Severity: mild Associated Symptoms: nausea, abdominal pain Allergies/Adverse Reactions: acetaminophen [From Tylenol] Allergy (Severe, Verified 01/01/24 13:58) Swelling of Tongue and Lips THROAT SWELL AND BREATHING DIFFICULTY hydrocodone [From Lortab] Allergy (Severe, Verified 01/01/24 13:58) Swelling of Tongue and Lips natalizumab [From Tysabri] Allergy (Severe, Verified 01/01/24 13:58) Hives onion Allergy (Severe, Verified 01/01/24 13:58) Swelling of Tongue and Lips raw onion only tomato Allergy (Severe, Verified 01/01/24 13:58) Tightness of Throat latex Allergy (Intermediate, Verified 01/01/24 13:58) Hives morphine Adverse Reaction (Severe, Verified 01/01/24 13:58) makes pt mad/angry/volitle Home Medications: Apixaban [Eliquis] 2.5 mg PO BID 08/11/23 [History] Ferrous Sulfate 325 mg [Feosol 325 mg] 325 mg PO UD 08/11/23 [History] Ondansetron ODT 4 MG [Zofran Odt 4 mg] 1 tab SL Q8HPRN PRN 08/11/23 [History] Fluconazole 200 mg PO UD 10/18/23 [History] Fludrocortisone Acetate 0.1 mg PO BID 11/21/23 [History] Midodrine HCl [Proamatine] 15 mg PO Q6H 11/21/23 [History] Potassium Chloride in Water [Potassium Cl 10 Meq/100 ml Fidelia] 15 meq PO DAILY 11/21/23 [History] Atorvastatin Calcium 40 mg PO DAILY 12/26/23 [History] Pantoprazole 20 mg [Protonix 20MG Tablet] 20 mg PO DAILY 12/26/23 [History] Potassium Chloride 15 ml PO DAILY 12/26/23 [History] Hx Tetanus, Diphtheria Vaccination/Date Given: Yes Hx Influenza Vaccination/Date Given: No Hx Pneumococcal Vaccination/Date Given: No Immunizations Up to Date: Yes Travel Risk - International Travel Have you traveled outside of the country in past 3 weeks: No - Coronavirus Screening Are you exhibiting any of the following symptoms?: Yes Symptoms: Vomiting/Diarrhea, Headaches/Body Aches/Fatigue Close contact with a COVID-19 positive Pt in past 14-21 Days: No - Vaccine Status Have you recieved a Covid-19 vaccination: Yes 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 - Vaccination Dates Dates if Unknown: unknown - Review of Systems Constitutional: Weakness Eyes: No Symptoms Ears, Nose, & Throat: No Symptoms (Chronic) Respiratory: No Symptoms Cardiac: No Symptoms Abdominal/Gastrointestinal: Abdominal Pain (Chronic), Nausea (Chronic), Vomiting (Chronic intermittent) Genitourinary Symptoms: No Symptoms Musculoskeletal: No Symptoms Skin: No Symptoms Neurological: No Symptoms Psychological: No Symptoms Endocrine: No Symptoms Hematologic/Lymphatic: No Symptoms Immunological/Allergic: No Symptoms All Other Systems: Reviewed and Negative - Past Medical History Pertinent Past Medical History: Yes Neurological History: Migraines, Seizures ENT History: No Pertinent History Cardiac History: Deep Vein Thrombosis Respiratory History: Pulmonary Embolism Endocrine Medical History: No Pertinent History Musculoskeletal History: No Pertinent History GI Medical History: Crohns Disease, GERD, Gallbladder Disease, Pancreatitis, Ulcer History: Renal Disease Psycho-Social History: Anxiety, Bipolar, Depression Female Reproductive Disorders: Fibroids, Uterine Cancer Other Medical History: unknown source of acute kidney failure 04/28/2022. 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, brain bleed, hemodialysis patient - Past Surgical History Past Surgical History: Yes Neuro Surgical History: No Pertinent History Cardiac: No Pertinent History Respiratory: No Pertinent History Gastrointestinal: Cholecystectomy, Other Genitourinary: No Pertinent History Musculoskeletal: Orthopedic Surgery Female Surgical History: Hysterectomy, Dilation & Curettage, Other Other Surgical History: intestine resect 4-5 times, pins R foot, multiple port placement - Female History Hx Now: No - Social History Smoking Status: Light tobacco smoker Exposure to second hand smoke: Yes Drug Use: none Patient Lives Alone: No - Nursing Vital Signs Nursing Vital Signs: Initial Vital Signs Temperature 98 F 01/01/24 13:59 Pulse Rate 75 01/01/24 13:59 Respiratory Rate 18 01/01/24 13:59 Blood Pressure 93/58 01/01/24 13:59 O2 Sat by Pulse Oximetry 100 01/01/24 13:59 Pain Scale Pain Intensity 10 - Physical Exam General Appearance: no apparent distress, alert, anxiety Eye Exam: PERRL/EOMI, eyes nml inspection Ears, Nose, Throat Exam: normal ENT inspection, moist mucous membranes Neck Exam: normal inspection, non-tender, supple, full range of motion Respiratory Exam: normal breath sounds, lungs clear, airway intact, No chest tenderness, No respiratory distress Cardiovascular Exam: regular rate/rhythm, normal heart sounds, normal peripheral pulses Gastrointestinal/Abdomen Exam: soft, normal bowel sounds, tenderness (Neurolysed) Pelvic Exam: not done Rectal Exam: not done Back Exam: normal inspection, normal range of motion, No CVA tenderness, No vertebral tenderness Extremity Exam: normal inspection, normal range of motion, pelvis stable Neurologic Exam: alert, oriented x 3, cooperative, operations label clerk II-XII nml as tested Skin Exam: normal color, warm, dry Lymphatic Exam: No adenopathy SpO2 Interpretation: normal SpO2: 100 O2 Delivery: Room Air Ordered Tests: Active Orders 24 hr Category Date Time Status Telemetry q4h Care 01/01/24 14:50 Ordered CBC W DIFF Stat Lab 01/01/24 14:12 Completed CMP Stat Lab 01/01/24 14:12 Received MAG [MAGNESIUM] Stat Lab 01/01/24 14:12 Received Medication Summary Generic Name Dose Route Start Last Admin Trade Name Freq PRN Reason Stop Dose Admin Hydromorphone HCl 1 mg 01/01/24 14:50 Hydromorphone 1 Mg/1ml Inj IV 01/01/24 14:51 STAT ONE Potassium Chloride 20 meq in 100 mls @ 50 mls/hr 01/01/24 14:50 Potassium Chloride 20 Meq In Water 100ml IV 01/01/24 16:49 STAT ONE Magnesium Sulfate/Water 2 gm in 50 mls @ 100 mls/hr 01/01/24 14:50 Magnesium Sulf 2 G/50 Ml Bag IV 01/01/24 15:19 ONCE ONE Ondansetron HCl 4 mg 01/01/24 14:50 Ondansetron Hcl 4 Mg/2 Ml Vial IV 01/01/24 14:51 STAT ONE Lab/Rad Data: Laboratory Result Diagrams 01/01/24 14:12 01/01/24 14:12 Laboratory Results 01/01/24 01/01/24 01/01/24 Range/Units 14:12 14:12 14:12 WBC 4.8 (4.0-10.5) x10^3/uL RBC 3.30 L (4.1-5.4) x10^6/uL Hgb 9.8 L (12.0-16.0) g/dL Hct 31.1 L (35-47) % MCV 94.2 (78-100) fL MCH 29.7 (26-32) pg MCHC 31.5 L (32-36) g/dL RDW 15.6 H (11.5-14.0) % Plt Count 103 L (150-450) x10^3/uL MPV 10.9 (7.5-11.0) fL Gran % 60.4 (36.0-66.0) % Immature Gran % (Auto) 0.4 (0.00-0.4) % Nucleat RBC Rel Count 0.0 (0.00-0.1) % Eos # (Auto) 0.01 (0-0.5) x10^3/uL Immature Gran # (Auto) 0.02 (0.00-0.03) x10^3u/L Absolute Lymphs (auto) 1.34 (1.0-4.6) x10^3/uL Absolute Monos (auto) 0.53 (0.0-1.3) x10^3/uL Absolute Nucleated RBC 0.00 (0.00-0.01) x10^3u/L Lymphocytes % 27.8 (24.0-44.0) % Monocytes % 11.0 (0.0-12.0) % Eosinophils % 0.2 (0.00-5.0) % Basophils % 0.2 (0.0-0.4) % Absolute Granulocytes 2.91 (1.4-6.9) x10^3/uL Basophils # 0.01 (0-0.4) x10^3/uL Sodium 140 (135-145) mmol/L Potassium 2.9 L* (3.5-5.1) mmol/L Chloride 110 H (98-107) mmol/L Carbon Dioxide 27 (22-30) mmol/L Anion Gap 6.7 (5-15) MEQ/L BUN 8 (7-17) mg/dL Creatinine 1.44 H (0.52-1.04) mg/dL Estimated GFR 46.9 ML/MIN Glucose 97 (74-106) mg/dL Calcium 7.3 L (8.4-10.2) mg/dL Magnesium 1.1 L (1.6-2.3) mg/dL Total Bilirubin 0.90 (0.2-1.3) mg/dL AST 24 (14-36) U/L ALT 19 (0-35) U/L Alkaline Phosphatase 122 (38-126) U/L Serum Total Protein 6.5 (6.3-8.2) g/dL Albumin 2.0 L (3.5-5.0) g/dL - Progress Progress: improved, pain not gone completely, re-examined Progress Note: 01/01/24 14:45 Patient medical issue is 1 of moderate complexity. Level complexity in the workup performed is based on review of the patient's past medical history, review of patient's drug allergy list, review of the patient's medication list, history present illness and physical findings on examination. This patient's workup includes CBC, CMP, magnesium level. The patient's medical issues are chronic. She does have a low potassium level 2.9. She also has a magnesium level of 1.1. We will supplement these electrolytes intravenously and provide the patient with intravenous Dilaudid and intravenous Zofran and then discharge the patient to home to follow-up with nephrology. We will contact the dialysis center to see if the patient can undergo dialysis later today or possibly on Thursday. 01/01/24 14:51 Patient will be discharged to home after the above infusions. I will have the patient increase her potassium solution to 15 mEq twice a day for the next 3 days. Counseled pt/family regarding: lab results, diagnosis, need for follow-up Medical Desision Making - Diagnostic Testing Diagnostic test were ordered, analyzed, and reviewed by me: Yes - Risk of complications Low Risk: Low risk of morbidity from additional dx testing or treatment - Departure Departure Disposition: Home Clinical Impression: Hypokalemia, Hypomagnesemia Condition: Stable Critical Care Time: No Referrals: OSCAR CALVILLO DO [Primary Care Provider] - Follow up/PCP as directed Additional Instructions: Take your medication as prescribed. Increase your potassium solution to 15 mill equivalents twice a day until Thursday morning, 01/04/2024. Go to your scheduled dialysis appointment. Call your primary care provider and neurosurgical physician assistant today, 01/01/2024 to make arrangements for a follow-up appointment in the next 3 to 5 days.
[2024-01-01] MEDS ORDERED: MAGNESIUM SULF 2 G/50 ML BAG 2 GM/50 ML PIGGYBACK IV ONE (15:00)
[2024-01-01] MEDS ORDERED: Zofran 4 MG/2 ML VIAL ONE (15:00)
[2024-01-01] MEDS ORDERED: Hydromorphone 1 mg/ml Injection ONE ×2 (15:00→17:32)
[2024-01-01] MEDS: Zofran 4 MG/2 ML VIAL IV ONE (15:03)
[2024-01-01] MEDS: Hydromorphone 1 mg/ml Injection IV ONE ×2 (15:06→17:34)
[2024-01-01] MEDS: MAGNESIUM SULF 2 G/50 ML BAG 2 GM/50 ML PIGGYBACK IV ONE (15:08)
[2024-01-01] MEDS ORDERED: POTASSIUM CHLORIDE 20 mEq IN WATER 100ML 100 ML IV ONE (15:51)
[2024-01-01] MEDS: POTASSIUM CHLORIDE 20 mEq IN WATER 100ML 20 MEQ/100 ML BAG IV ONE (15:54)
[2024-01-01 18:22] VITALS: BP 106/60; PULSE 70
== END 2024-01-01 18:22 | disposition home or self-care (01) ==
LOC: ED 12:51
DX: E87.6 Hypokalemia (principal); E83.42 Hypomagnesemia; R11.2 Nausea with vomiting, unspecified; N18.6 End stage renal disease; Z79.01 Long term (current) use of anticoagulants; Z79.899 Other long term (current) drug therapy; Z72.0 Tobacco use
CPT/HCPCS: 36415; 80053; 83735; 85025; 96365; 96367; 96374; 96375; 96376; 99284; J1170; J1642; J2405; J3480; J3475

== ENCOUNTER 2024-01-03 15:51 | Emergency (ER) | payer MEDICARE ==
[2024-01-03 16:07] VITALS: TEMP 99.1
[2024-01-03 17:17] LABS: Absolute Neutrophil Ct (ANC) 4.48 x10^3/uL (1.4-6.9); BASOPHIL % 0.2 % (0.0-0.4); Basophil (Absolute #) 0.01 x10^3/uL (0-0.4); Eosinophil (Absolute #) 0 x10^3/uL (0-0.5); Hematocrit 31.3 % (35-47); Hemoglobin 9.5 g/dL (12.0-16.0); IMMATURE GRAN # 0.02 x10^3u/L (0.00-0.03); IMMATURE GRAN % 0.3 % (0.00-0.4); Lymphocyte (Absolute #) 1.37 x10^3/uL (1.0-4.6); Lymphocytes % 21.3 % (24.0-44.0); Mean Cell Volume 97.2 fL (78-100); Mean Corpuscular Hemoglobin 29.5 pg (26-32); Mean Corpuscular Hgb Concent. 30.4 g/dL (32-36); Mean Platelet Volume 10.7 fL (7.5-11.0); Monocyte (Absolute #) 0.56 x10^3/uL (0.0-1.3); Monocytes % 8.7 % (0.0-12.0); Neutrophil % 69.5 % (36.0-66.0); Platelet Count 131 x10^3/uL (150-450); Red Blood Count 3.22 x10^6/uL (4.1-5.4); Red Cell Distribution Width 15.9 % (11.5-14.0); White Blood Count 6.4 x10^3/uL (4.0-10.5)
--- NOTE | 2024-01-03 17:17 | ERPHSYRPT ---
- History of Present Illness Time Seen by Provider: 01/03/24 15:57 Historian: patient Exam Limitations: no limitations Patient Subjective Stated Complaint: pt c/o of vomiting, diarrhea, pain, thinks her potassium and mag are low Triage Nursing Assessment: Pt was brought to the ER by her father, hypotensive, rates pain as 10/10 and is playing a game on her phone, N&V, diarrhea, generalized pain, last intake a couple of hours ago, no difficulty breathing, pulses normal, skin n/w/d, pt walked into the ER with a stable gait Physician History: 43-year-old female with multiple medical problems including PE/DVT on Eliquis, ESRD on dialysis, Crohn's disease with resection and anastomosis currently having a fistula abdominal wall, presented in the ER with 2 episodes of nonprojectile, nonbilious vomiting this morning. Patient reports generalized abdominal pain which is a little worse than usual. No fever or chills reported. Denies any diarrhea. Has dialysis done yesterday and does report having symptoms similar to this with low potassium. Allergies/Adverse Reactions: acetaminophen [From Tylenol] Allergy (Severe, Verified 01/06/24 21:36) Swelling of Tongue and Lips THROAT SWELL AND BREATHING DIFFICULTY hydrocodone [From Lortab] Allergy (Severe, Verified 01/06/24 21:36) Swelling of Tongue and Lips natalizumab [From Tysabri] Allergy (Severe, Verified 01/06/24 21:36) Hives onion Allergy (Severe, Verified 01/06/24 21:36) Swelling of Tongue and Lips raw onion only tomato Allergy (Severe, Verified 01/06/24 21:36) Tightness of Throat latex Allergy (Intermediate, Verified 01/06/24 21:36) Hives morphine Adverse Reaction (Severe, Verified 01/06/24 21:36) makes pt mad/angry/volitle Home Medications: Apixaban [Eliquis] 2.5 mg PO BID 08/11/23 [History] Ferrous Sulfate 325 mg [Feosol 325 mg] 325 mg PO UD 08/11/23 [History] Ondansetron ODT 4 MG [Zofran Odt 4 mg] 1 tab SL Q8HPRN PRN 08/11/23 [History] Fluconazole 200 mg PO UD 10/18/23 [History] Fludrocortisone Acetate 0.1 mg PO BID 11/21/23 [History] Midodrine HCl [Proamatine] 15 mg PO Q6H 11/21/23 [History] Potassium Chloride in Water [Potassium Cl 10 Meq/100 ml Fidelia] 15 meq PO DAILY 11/21/23 [History] Atorvastatin Calcium 40 mg PO DAILY 12/26/23 [History] Pantoprazole 20 mg [Protonix 20MG Tablet] 20 mg PO DAILY 12/26/23 [History] Potassium Chloride 15 ml PO DAILY 12/26/23 [History] Hx Tetanus, Diphtheria Vaccination/Date Given: Yes Hx Influenza Vaccination/Date Given: No Hx Pneumococcal Vaccination/Date Given: No Travel Risk - International Travel Have you traveled outside of the country in past 3 weeks: No - Coronavirus Screening Are you exhibiting any of the following symptoms?: No Close contact with a COVID-19 positive Pt in past 14-21 Days: No - Vaccine Status Have you recieved a Covid-19 vaccination: Yes Attorney General: Unknown - Vaccination Dates Dates if Unknown: unknown - Review of Systems Constitutional: Fatigue, Weakness Eyes: No Symptoms Ears, Nose, & Throat: No Symptoms Respiratory: No Symptoms Cardiac: No Symptoms Abdominal/Gastrointestinal: Abdominal Pain, Nausea, Vomiting Genitourinary Symptoms: No Symptoms Musculoskeletal: No Symptoms Skin: No Symptoms Neurological: No Symptoms Endocrine: No Symptoms Hematologic/Lymphatic: No Symptoms Immunological/Allergic: No Symptoms - Past Medical History Pertinent Past Medical History: Yes Neurological History: Migraines, Seizures ENT History: No Pertinent History Cardiac History: Deep Vein Thrombosis Respiratory History: Pulmonary Embolism Endocrine Medical History: No Pertinent History Musculoskeletal History: No Pertinent History GI Medical History: Crohns Disease, GERD, Gallbladder Disease, Pancreatitis, Ulcer History: Renal Disease Psycho-Social History: Anxiety, Bipolar, Depression Female Reproductive Disorders: Fibroids, Uterine Cancer Other Medical History: unknown source of acute kidney failure 04/28/2022. 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, brain bleed, hemodialysis patient - Past Surgical History Past Surgical History: Yes Neuro Surgical History: No Pertinent History Cardiac: No Pertinent History Respiratory: No Pertinent History Gastrointestinal: Cholecystectomy, Other Genitourinary: No Pertinent History Musculoskeletal: Orthopedic Surgery Female Surgical History: Hysterectomy, Dilation & Curettage, Other Other Surgical History: intestine resect 4-5 times, pins R foot, multiple port placement - Female History Hx Now: No (hysterectomy) - Social History Smoking Status: Former smoker Exposure to second hand smoke: Yes Drug Use: none Patient Lives Alone: No - Nursing Vital Signs Nursing Vital Signs: Initial Vital Signs Temperature 99.1 F 01/03/24 16:01 Pulse Rate 84 01/03/24 16:01 Blood Pressure 97/68 01/03/24 16:01 O2 Sat by Pulse Oximetry 99 01/03/24 16:01 Pain Scale Pain Intensity 8 - Physical Exam General Appearance: no apparent distress, alert Eye Exam: PERRL/EOMI Ears, Nose, Throat Exam: normal ENT inspection Neck Exam: normal inspection, full range of motion Respiratory Exam: normal breath sounds, lungs clear Cardiovascular Exam: regular rate/rhythm, normal heart sounds Gastrointestinal/Abdomen Exam: normal bowel sounds, tenderness, other (Fistula) Back Exam: normal inspection Extremity Exam: normal inspection, normal range of motion Neurologic Exam: alert, oriented x 3, cooperative SpO2 Interpretation: normal SpO2: 98 O2 Delivery: Room Air Ordered Tests: Medication Summary Discontinued Medications Generic Name Dose Route Start Last Admin Trade Name Freq PRN Reason Stop Dose Admin Hydromorphone HCl 0.25 mg 01/03/24 18:08 01/03/24 18:34 Hydromorphone 1 Mg/1ml Inj IV 01/03/24 18:09 0.25 mg STAT ONE Administration Hydromorphone HCl Confirm 01/03/24 18:24 Hydromorphone 1 Mg/1ml Inj Administered 01/03/24 18:25 Dose 1 mg .ROUTE .STK-MED ONE Potassium Chloride 20 meq in 100 mls @ 50 mls/hr 01/03/24 18:08 01/03/24 18:33 Potassium Chloride 20 Meq In Water 100ml IV 01/03/24 20:07 50 mls/hr STAT ONE Administration Sodium Chloride 500 mls @ 500 mls/hr 01/03/24 18:10 01/03/24 19:35 Sodium Chloride 0.9% 500 Ml IV 01/03/24 19:09 Infused .Q1H ONE Infusion Sodium Chloride Confirm 01/03/24 18:27 Sodium Chloride 0.9% 500 Ml Administered 01/03/24 18:28 Dose 500 mls @ ud IV .STK-MED ONE Potassium Chloride Confirm 01/03/24 18:27 Potassium Chloride 20 Meq In Water 100ml Administered 01/03/24 18:28 Dose 100 mls @ ud IV .STK-MED ONE Magnesium Sulfate/Dextrose 100 mls @ 200 mls/hr 01/03/24 18:33 01/03/24 18:48 Magnesium 1 Gm / 100 Ml D5w IV 01/03/24 19:02 200 mls/hr STAT ONE Administration Magnesium Sulfate/Dextrose Confirm 01/03/24 18:47 Magnesium 1 Gm / 100 Ml D5w Administered 01/03/24 18:48 Dose 100 mls @ ud IV .STK-MED ONE Ondansetron HCl 4 mg 01/03/24 18:08 01/03/24 18:33 Ondansetron Hcl 4 Mg/2 Ml Vial IV 01/03/24 18:09 4 mg STAT ONE Administration Ondansetron HCl Confirm 01/03/24 18:20 Ondansetron Hcl 4 Mg/2 Ml Vial Administered 01/03/24 18:21 Dose 4 mg .ROUTE .STK-MED ONE Potassium Bicarbonate Confirm 01/03/24 18:20 Potassium Bicarbonate 25 Meq Tab Administered 01/03/24 18:21 Dose 50 meq .ROUTE .STK-MED ONE Potassium Bicarbonate 50 meq 01/03/24 18:28 01/03/24 18:33 Potassium Bicarbonate 25 Meq Tab PO 01/03/24 18:29 50 meq STAT ONE Administration Potassium Chloride 40 meq 01/03/24 18:08 01/03/24 18:34 Potassium Chloride Tab 10 Meq Tab PO 01/03/24 18:09 Not Given STAT ONE Lab/Rad Data: Laboratory Result Diagrams 01/03/24 17:14 01/03/24 17:14 Laboratory Results 01/03/24 01/03/24 01/03/24 Range/Units 17:14 17:14 16:30 WBC 6.4 (4.0-10.5) x10^3/uL RBC 3.22 L (4.1-5.4) x10^6/uL Hgb 9.5 L (12.0-16.0) g/dL Hct 31.3 L (35-47) % MCV 97.2 (78-100) fL MCH 29.5 (26-32) pg MCHC 30.4 L (32-36) g/dL RDW 15.9 H (11.5-14.0) % Plt Count 131 L (150-450) x10^3/uL MPV 10.7 (7.5-11.0) fL Gran % 69.5 H (36.0-66.0) % Immature Gran % (Auto) 0.3 (0.00-0.4) % Nucleat RBC Rel Count 0.0 (0.00-0.1) % Eos # (Auto) 0 (0-0.5) x10^3/uL Immature Gran # (Auto) 0.02 (0.00-0.03) x10^3u/L Absolute Lymphs (auto) 1.37 (1.0-4.6) x10^3/uL Absolute Monos (auto) 0.56 (0.0-1.3) x10^3/uL Absolute Nucleated RBC 0.00 (0.00-0.01) x10^3u/L Lymphocytes % 21.3 L (24.0-44.0) % Monocytes % 8.7 (0.0-12.0) % Eosinophils % 0.0 (0.00-5.0) % Basophils % 0.2 (0.0-0.4) % Absolute Granulocytes 4.48 (1.4-6.9) x10^3/uL Basophils # 0.01 (0-0.4) x10^3/uL Sodium 142 (135-145) mmol/L Potassium 2.8 L* (3.5-5.1) mmol/L Chloride 110 H (98-107) mmol/L Carbon Dioxide 28 (22-30) mmol/L Anion Gap 6.6 (5-15) MEQ/L BUN 3 L (7-17) mg/dL Creatinine 1.48 H (0.52-1.04) mg/dL Estimated GFR 45.4 ML/MIN Glucose 93 (74-106) mg/dL Calcium 7.5 L (8.4-10.2) mg/dL Magnesium 1.3 L (1.6-2.3) mg/dL Total Bilirubin 0.90 (0.2-1.3) mg/dL AST 27 (14-36) U/L ALT 17 (0-35) U/L Alkaline Phosphatase 139 H (38-126) U/L Serum Total Protein 6.4 (6.3-8.2) g/dL Albumin 2.2 L (3.5-5.0) g/dL Lipase 31 (23-300) U/L - Progress Progress: improved, re-examined Progress Note: 01/03/24 18:49 43-year-old with multiple medical problems is evaluated for couple of episodes of vomiting this morning. Patient has chronic abdominal pain and the fistula and abdominal wall. Patient is not tachypneic or tachycardic. Blood pressure around upper 90s. She is given Zofran and symptomatic treatment for pain along with fluids, workup showed normal white count, chemistries showed potassium of 2.8. Patient always have potassium around 2.8-3.0. She is given a run of IV potassium and oral replacement as well. Also her mag is 1.3, will give her a a gram of magnesium as well. Do not think she needs CT abdomen pelvis. She is nontoxic. On reevaluation she is feeling better. Once patient is done with her IV run of potassium she will be discharged. She is due for her dialysis tomorrow. She does not seem fluid overloaded at all. Counseled pt/family regarding: lab results, diagnosis, need for follow-up Medical Desision Making - Diagnostic Testing Diagnostic test were ordered, analyzed, and reviewed by me: Yes - Departure Departure Disposition: Home Clinical Impression: Nausea & vomiting, Hypokalemia, Hypomagnesemia Condition: Stable Critical Care Time: No Referrals: OSCAR CALVILLO DO [Primary Care Provider] - Follow up with PCP 1 day Instructions: Hypokalemia (DC), Nausea and Vomiting, Adult (DC) Additional Instructions: Take Zofran as needed for nausea nausea and vomiting. Increase hydration. Keep appointment for dialysis tomorrow. Follow-up with your primary care for reevaluation. Continue with oral potassium. Return to ER for any worsening of nausea vomiting, abdominal pain, fever chills etc.
[2024-01-03 17:31] LABS: ALBUMIN 2.2 g/dL (3.5-5.0); ANION GAP 6.6 MEQ/L (5-15); BILIRUBIN,TOTAL 0.9 mg/dL (0.2-1.3); Calcium 7.5 mg/dL (8.4-10.2); Creatinine 1 1.48 mg/dL (0.52-1.04); EST GLOMERULAR FILTRATION RATE 45.4 ML/MIN; Total Protein 6.4 g/dL (6.3-8.2)
[2024-01-03 17:38] LABS: Potassium 2.8 mmol/L (3.5-5.1)
[2024-01-03] MEDS ORDERED: K-LYTE ONE (18:20)
[2024-01-03] MEDS ORDERED: Zofran 4 MG/2 ML VIAL ONE (18:20)
[2024-01-03] MEDS ORDERED: Hydromorphone 1 mg/ml Injection ONE (18:24)
[2024-01-03] MEDS ORDERED: POTASSIUM CHLORIDE 20 mEq IN WATER 100ML 100 ML IV ONE (18:27)
[2024-01-03] MEDS ORDERED: Sodium Chloride 0.9% 500 ML 500 ML IV ONE (18:27)
[2024-01-03] MEDS: POTASSIUM CHLORIDE 20 mEq IN WATER 100ML 20 MEQ/100 ML BAG IV ONE (18:33)
[2024-01-03] MEDS: Zofran 4 MG/2 ML VIAL IV ONE (18:33)
[2024-01-03] MEDS: K-LYTE PO ONE (18:33)
[2024-01-03] MEDS: Sodium Chloride 0.9% 500 ML 500 ML IV ONE (18:33)
[2024-01-03] MEDS: Klor Con PO ONE (18:34)
[2024-01-03] MEDS: Hydromorphone 1 mg/ml Injection IV ONE (18:34)
[2024-01-03] MEDS ORDERED: Magnesium 1 Gm / 100 Ml D5W*** 100 ML IV ONE (18:47)
[2024-01-03] MEDS: Magnesium 1 Gm / 100 Ml D5W*** 100 ML IV ONE (18:48)
[2024-01-03 20:03] VITALS: BP 104/67; PULSE 86; RESP 18
[2024-01-07 17:17] VITALS: O2SAT 98
== END 2024-01-03 21:00 | disposition home or self-care (01) ==
LOC: ED 15:51
DX: R11.2 Nausea with vomiting, unspecified (principal); E87.6 Hypokalemia; E83.42 Hypomagnesemia; R10.84 Generalized abdominal pain; N18.6 End stage renal disease; Z79.01 Long term (current) use of anticoagulants; Z79.899 Other long term (current) drug therapy; Z99.2 Dependence on renal dialysis
CPT/HCPCS: 36415; 80053; 83690; 83735; 85025; 96374; 96375; 99284; J1170; J2405; J3475; J3480; A9270-GY

== ENCOUNTER 2024-01-06 20:30 | Emergency (ER) | payer MEDICARE ==
[2024-01-06 21:33] VITALS: TEMP 99.4
--- NOTE | 2024-01-06 21:50 | ERPHSYRPT ---
- History of Present Illness Time Seen by Provider: 01/06/24 21:30 Source: patient Exam Limitations: no limitations Patient Subjective Stated Complaint: pt states she has been vomiting and has headache in occipital area rated 10/10 and described as sharp. stats vomiting st arted just prior to coming in to er Triage Nursing Assessment: pt alert and oriented, answers questions approp. pt back to room per wheelchair and transfers to stretcher per self and amblates into bathroom with steadyg ait noted. respirations nonlabored. skin warm and dry. abd soft with gasric tube in place. bowel sounds noted x4 quads. Physician History: 43-year-old female with a history of multiple medical problems. Patient is on opiate medication regularly. Patient has been in our ED several times this month. Patient develops nausea vomiting, depletes her potassium becomes dehydrated. However she tends to improve with Dilaudid. It appears as though patient is experiencing opiate withdrawal causing the nausea and the vomiting the dehydration and the hypokalemia. This is a pattern that has been observed over the past several visits that I have personally cared for her. Patient requesting Dilaudid for pain control. Portions of this note were created with voice recognition technology. There may be grammatical, spelling, punctuation or sound alike errors Timing/Duration: today Severity: moderate Modifying Factors: Improves With: nothing Associated Symptoms: denies symptoms Allergies/Adverse Reactions: acetaminophen [From Tylenol] Allergy (Severe, Verified 01/06/24 21:36) Swelling of Tongue and Lips THROAT SWELL AND BREATHING DIFFICULTY hydrocodone [From Lortab] Allergy (Severe, Verified 01/06/24 21:36) Swelling of Tongue and Lips natalizumab [From Tysabri] Allergy (Severe, Verified 01/06/24 21:36) Hives onion Allergy (Severe, Verified 01/06/24 21:36) Swelling of Tongue and Lips raw onion only tomato Allergy (Severe, Verified 01/06/24 21:36) Tightness of Throat latex Allergy (Intermediate, Verified 01/06/24 21:36) Hives morphine Adverse Reaction (Severe, Verified 01/06/24 21:36) makes pt mad/angry/volitle Home Medications: Apixaban [Eliquis] 2.5 mg PO BID 08/11/23 [History] Ferrous Sulfate 325 mg [Feosol 325 mg] 325 mg PO UD 08/11/23 [History] Ondansetron ODT 4 MG [Zofran Odt 4 mg] 1 tab SL [id number] PRN 08/11/23 [History] Fluconazole 200 mg PO UD 10/18/23 [History] Fludrocortisone Acetate 0.1 mg PO BID 11/21/23 [History] Midodrine HCl [Proamatine] 15 mg PO Q6H 11/21/23 [History] Potassium Chloride in Water [Potassium Cl 10 Meq/100 ml Fidelia] 15 meq PO DAILY 11/21/23 [History] Atorvastatin Calcium 40 mg PO DAILY 12/26/23 [History] Pantoprazole 20 mg [Protonix 20MG Tablet] 20 mg PO DAILY 12/26/23 [History] Potassium Chloride 15 ml PO DAILY 12/26/23 [History] Hx Tetanus, Diphtheria Vaccination/Date Given: Yes Hx Influenza Vaccination/Date Given: No Hx Pneumococcal Vaccination/Date Given: No Immunizations Up to Date: Yes Travel Risk - International Travel Have you traveled outside of the country in past 3 weeks: No - Emerging Infectious Disease Are you exhibiting symptoms associated with any current EIDs: No - Review of Systems Constitutional: No Symptoms, No Fever, No Chills Eyes: No Symptoms Ears, Nose, & Throat: No Symptoms Respiratory: No Symptoms, No Cough, No Dyspnea Cardiac: No Symptoms, No Chest Pain, No Edema, No Syncope Abdominal/Gastrointestinal: No Symptoms, No Abdominal Pain, No Nausea, No Vomiting, No Diarrhea Genitourinary Symptoms: No Symptoms, No Dysuria Musculoskeletal: No Symptoms, No Back Pain, No Neck Pain Skin: No Symptoms, No Rash Neurological: No Symptoms, No Dizziness, No Focal Weakness, No Sensory Changes Psychological: No Symptoms Endocrine: No Symptoms Hematologic/Lymphatic: No Symptoms Immunological/Allergic: No Symptoms All Other Systems: Reviewed and Negative - Past Medical History Pertinent Past Medical History: Yes Neurological History: Migraines, Seizures ENT History: No Pertinent History Cardiac History: Deep Vein Thrombosis Respiratory History: Pulmonary Embolism Endocrine Medical History: No Pertinent History Musculoskeletal History: No Pertinent History GI Medical History: Crohns Disease, GERD, Gallbladder Disease, Pancreatitis, Ulcer History: Renal Disease Psycho-Social History: Anxiety, Bipolar, Depression Female Reproductive Disorders: Fibroids, Uterine Cancer Other Medical History: unknown source of acute kidney failure 04/28/2022. 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, brain bleed, hemodialysis patient - Past Surgical History Past Surgical History: Yes Neuro Surgical History: No Pertinent History Cardiac: No Pertinent History Respiratory: No Pertinent History Gastrointestinal: Cholecystectomy, Other Genitourinary: No Pertinent History Musculoskeletal: Orthopedic Surgery Female Surgical History: Hysterectomy, Dilation & Curettage, Other Other Surgical History: intestine resect 4-5 times, pins R foot, multiple port placement - Female History Hx Last Menstrual Period: hyster Hx Now: No - Social History Smoking Status: Never smoker Exposure to second hand smoke: Yes Drug Use: none Patient Lives Alone: No - Nursing Vital Signs Nursing Vital Signs: Initial Vital Signs Temperature 99.4 F 01/06/24 21:14 Pulse Rate 86 01/06/24 21:14 Respiratory Rate 18 01/06/24 21:14 Blood Pressure 118/69 01/06/24 21:14 O2 Sat by Pulse Oximetry 95 01/06/24 21:14 Pain Scale Pain Intensity 10 - Physical Exam General Appearance: no apparent distress, alert Eye Exam: PERRL/EOMI, eyes nml inspection Ears, Nose, Throat Exam: normal ENT inspection, TMs normal, pharynx normal, moist mucous membranes Neck Exam: normal inspection, non-tender, supple, full range of motion Respiratory Exam: normal breath sounds, lungs clear, airway intact, No respiratory distress Cardiovascular Exam: regular rate/rhythm, normal heart sounds, normal peripheral pulses Gastrointestinal/Abdomen Exam: soft, normal bowel sounds, No tenderness, No mass Back Exam: normal inspection, normal range of motion, No CVA tenderness, No vertebral tenderness Extremity Exam: normal inspection, normal range of motion, pelvis stable Neurologic Exam: alert, oriented x 3, cooperative, normal mood/affect, sensation nml, No motor deficits Skin Exam: normal color, warm, dry, No rash Lymphatic Exam: No adenopathy SpO2 Interpretation: normal SpO2: 95 O2 Delivery: Room Air - Course Nursing assessment & vital signs reviewed: Yes Ordered Tests: Active Orders 24 hr Category Date Time Status IV Insertion STAT Care 01/06/24 21:41 Active Telemetry q4h Care 01/06/24 23:40 Active HEAD WITHOUT CONTRAST [CT] Stat Exams 01/06/24 21:34 Completed CBC W DIFF Stat Lab 01/06/24 21:55 Completed CMP Stat Lab 01/06/24 21:55 Completed CULTURE,URINE Stat Lab 01/06/24 21:47 Received LIPASE Stat Lab 01/06/24 21:55 Completed TROPONIN Q4H Lab 01/06/24 21:55 Completed TROPONIN Q4H Lab 01/07/24 01:45 Ordered TROPONIN Q4H Lab 01/07/24 05:45 Ordered UA W/RFX UR CULTURE Stat Lab 01/06/24 21:47 Completed Medication Summary Generic Name Dose Route Start Last Admin Trade Name Freq PRN Reason Stop Dose Admin Magnesium Sulfate/Dextrose 100 mls @ 100 mls/hr 01/06/24 23:45 Magnesium 1 Gm / 100 Ml D5w IV 01/07/24 01:44 Q1H ROMULO Potassium Chloride 20 meq in 100 mls @ 50 mls/hr 01/06/24 23:45 Potassium Chloride 20 Meq In Water 100ml IV 01/07/24 03:44 Q2H ROMULO Discontinued Medications Generic Name Dose Route Start Last Admin Trade Name Freq PRN Reason Stop Dose Admin Droperidol 1.25 mg 01/06/24 21:39 01/06/24 22:02 Droperidol 5 Mg/2 Ml Vial IV 01/06/24 21:40 1.25 mg STAT ONE Administration Droperidol Confirm 01/06/24 22:00 Droperidol 5 Mg/2 Ml Vial Administered 01/06/24 22:01 Dose 5 mg .ROUTE .STK-MED ONE Ceftriaxone Sodium 1 gm in 100 mls @ 200 mls/hr 01/07/24 00:01 Rocephin 1 Gm / 100 Ml Nacl IV 01/07/24 00:30 STAT ONE Ketamine HCl 5 mg 01/07/24 00:36 Ketamine Hcl 50 Mg/Ml IV 01/07/24 00:37 STAT ONE Lab/Rad Data: Laboratory Result Diagrams 01/06/24 21:55 01/06/24 21:55 Laboratory Results 01/06/24 01/06/24 01/06/24 Range/Units 21:55 21:55 21:55 WBC 7.4 (4.0-10.5) x10^3/uL RBC 3.40 L (4.1-5.4) x10^6/uL Hgb 10.0 L (12.0-16.0) g/dL Hct 32.1 L (35-47) % MCV 94.4 (78-100) fL MCH 29.4 (26-32) pg MCHC 31.2 L (32-36) g/dL RDW 16.2 H (11.5-14.0) % Plt Count 143 L (150-450) x10^3/uL MPV 10.0 (7.5-11.0) fL Gran % 67.8 H (36.0-66.0) % Immature Gran % (Auto) 0.4 (0.00-0.4) % Nucleat RBC Rel Count 0.0 (0.00-0.1) % Eos # (Auto) 0.01 (0-0.5) x10^3/uL Immature Gran # (Auto) 0.03 (0.00-0.03) x10^3u/L Absolute Lymphs (auto) 1.76 (1.0-4.6) x10^3/uL Absolute Monos (auto) 0.56 (0.0-1.3) x10^3/uL Absolute Nucleated RBC 0.00 (0.00-0.01) x10^3u/L Lymphocytes % 23.8 L (24.0-44.0) % Monocytes % 7.6 (0.0-12.0) % Eosinophils % 0.1 (0.00-5.0) % Basophils % 0.3 (0.0-0.4) % Absolute Granulocytes 5.01 (1.4-6.9) x10^3/uL Basophils # 0.02 (0-0.4) x10^3/uL Sodium 138 (135-145) mmol/L Potassium 2.9 L* (3.5-5.1) mmol/L Chloride 112 H (98-107) mmol/L Carbon Dioxide 18 L (22-30) mmol/L Anion Gap 11.0 (5-15) MEQ/L BUN 7 (7-17) mg/dL Creatinine 1.67 H (0.52-1.04) mg/dL Estimated GFR 39.2 ML/MIN Glucose 97 (74-106) mg/dL Calcium 7.8 L (8.4-10.2) mg/dL Total Bilirubin 1.40 H (0.2-1.3) mg/dL AST 78 H (14-36) U/L ALT 38 H (0-35) U/L Alkaline Phosphatase 202 H (38-126) U/L Troponin I < 0.012 (0.000-0.034) ng/mL Serum Total Protein 7.3 (6.3-8.2) g/dL Albumin 2.4 L (3.5-5.0) g/dL Lipase 63 (23-300) U/L Urine Color (Yellow) Urine Appearance (Clear) Urine pH (4.6-8.0) Ur Specific [place] (1.005-1.030) Urine Protein (Negative) Urine Glucose (UA) (Negative) mg/dL Urine Ketones (Negative) Urine Blood (Negative) Urine Nitrite (Negative) Urine Bilirubin (Negative) Urine Urobilinogen (0.2) mg/dL Ur Leukocyte Esterase (Negative) U Hyaline Cast (Auto) (0-2) /LPF Urine Microscopic RBC (0-5) /HPF Urine Microscopic WBC (0-5) /HPF Ur Epithelial Cells (None Seen) /HPF Calcium Oxalate Crystal (None Seen) /HPF Urine Bacteria (None Seen) /HPF Urine Culture Reflexed (NO) 01/06/24 Range/Units 21:47 WBC (4.0-10.5) x10^3/uL RBC (4.1-5.4) x10^6/uL Hgb (12.0-16.0) g/dL Hct (35-47) % MCV (78-100) fL MCH (26-32) pg MCHC (32-36) g/dL RDW (11.5-14.0) % Plt Count (150-450) x10^3/uL MPV (7.5-11.0) fL Gran % (36.0-66.0) % Immature Gran % (Auto) (0.00-0.4) % Nucleat RBC Rel Count (0.00-0.1) % Eos # (Auto) (0-0.5) x10^3/uL Immature Gran # (Auto) (0.00-0.03) x10^3u/L Absolute Lymphs (auto) (1.0-4.6) x10^3/uL Absolute Monos (auto) (0.0-1.3) x10^3/uL Absolute Nucleated RBC (0.00-0.01) x10^3u/L Lymphocytes % (24.0-44.0) % Monocytes % (0.0-12.0) % Eosinophils % (0.00-5.0) % Basophils % (0.0-0.4) % Absolute Granulocytes (1.4-6.9) x10^3/uL Basophils # (0-0.4) x10^3/uL Sodium (135-145) mmol/L Potassium (3.5-5.1) mmol/L Chloride (98-107) mmol/L Carbon Dioxide (22-30) mmol/L Anion Gap (5-15) MEQ/L BUN (7-17) mg/dL Creatinine (0.52-1.04) mg/dL Estimated GFR ML/MIN Glucose (74-106) mg/dL Calcium (8.4-10.2) mg/dL Total Bilirubin (0.2-1.3) mg/dL AST (14-36) U/L ALT (0-35) U/L Alkaline Phosphatase (38-126) U/L Troponin I (0.000-0.034) ng/mL Serum Total Protein (6.3-8.2) g/dL Albumin (3.5-5.0) g/dL Lipase (23-300) U/L Urine Color Yellow (Yellow) Urine Appearance Turbid A (Clear) Urine pH 6.5 (4.6-8.0) Ur Specific [place] 1.015 (1.005-1.030) Urine Protein 30 (Negative) Urine Glucose (UA) Negative (Negative) mg/dL Urine Ketones Trace A (Negative) Urine Blood Moderate A (Negative) Urine Nitrite Negative (Negative) Urine Bilirubin Negative (Negative) Urine Urobilinogen 0.2 (0.2) mg/dL Ur Leukocyte Esterase Trace A (Negative) U Hyaline Cast (Auto) NONE SEEN (0-2) /LPF Urine Microscopic RBC 21-50 A (0-5) /HPF Urine Microscopic WBC 6-10 A (0-5) /HPF Ur Epithelial Cells Rare (None Seen) /HPF Calcium Oxalate Crystal 26-50 A (None Seen) /HPF Urine Bacteria Moderate A (None Seen) /HPF Urine Culture Reflexed YES (NO) - Progress Progress: improved Progress Note: Patient auto accepted by Dr. Casillas at 00 33 43-year-old female history of end-stage renal disease on hemodialysis presents to our ED for evaluation and treatment of nausea and vomiting. Patient also complained of a headache and requested a CT of her head. CT of her head reveals a occipital hypodensity of unclear significance. Patient will likely require an MRI. Potassium was low at 2.9. Magnesium potassium replacement ordered. Patient's pain and nausea addressed with droperidol. Patient feels much better. Patient reassessed she is resting comfortably. Patient requesting more pain medication. We will give patient a dose of ketamine. Patient accepted via auto accept to [facility]. Plan of care discussed with patient. She agrees to transfer to [facility] for further evaluation and treatment. Portions of this note were created with voice recognition technology. There may be grammatical, spelling, punctuation or sound alike errors Complexity problem addressed is moderate acute complicated No critical care time Complexity of data reviewed and analyzed is extensive. Test ordered test reviewed results analyzed and correlated clinically with history and physical examination. Management discussed with [facility] who auto excepted on Dr. Casillas's behalf Risk of complication and or risk of morbidity/mortality patient management is high. Patient requires hospitalization, higher level of care for further evaluation and treatment. Vital stable. Time spent to transfer patient is approximately 20 minutes. Plan of care established for shared decision making. No social determinants of h ealth present impede follow-up. Portions of this note were created with voice recognition technology. There may be grammatical, spelling, punctuation or sound alike errors 01/07/24 00:39 Counseled pt/family regarding: lab results, diagnosis, need for follow-up, rad results - Departure Departure Disposition: Observation Clinical Impression: Nausea & vomiting, Hypokalemia, Right occipital lobe hypodensity, Opiate withdrawal, Urinary tract infection Condition: Stable Critical Care Time: No Referrals: OSCAR CALVILLO, [Primary Care Provider] - Follow up/PCP as directed
[2024-01-06 22:00] LABS: Absolute Neutrophil Ct (ANC) 5.01 x10^3/uL (1.4-6.9); BASOPHIL % 0.3 % (0.0-0.4); Basophil (Absolute #) 0.02 x10^3/uL (0-0.4); Eosinophil % 0.1 % (0.00-5.0); Eosinophil (Absolute #) 0.01 x10^3/uL (0-0.5); Hematocrit 32.1 % (35-47); IMMATURE GRAN # 0.03 x10^3u/L (0.00-0.03); IMMATURE GRAN % 0.4 % (0.00-0.4); Lymphocyte (Absolute #) 1.76 x10^3/uL (1.0-4.6); Lymphocytes % 23.8 % (24.0-44.0); Mean Cell Volume 94.4 fL (78-100); Mean Corpuscular Hemoglobin 29.4 pg (26-32); Mean Corpuscular Hgb Concent. 31.2 g/dL (32-36); Monocyte (Absolute #) 0.56 x10^3/uL (0.0-1.3); Monocytes % 7.6 % (0.0-12.0); Neutrophil % 67.8 % (36.0-66.0); Platelet Count 143 x10^3/uL (150-450); Red Cell Distribution Width 16.2 % (11.5-14.0); White Blood Count 7.4 x10^3/uL (4.0-10.5)
[2024-01-06 22:13] LABS: ADD URINE CULTURE? YES (NO); Appearance Turbid (Clear); Bacteria Moderate /HPF (None Seen); Bilirubin Negative (Negative); Blood Moderate (Negative); Calcium Oxalate Crystals 26-50 /HPF (None Seen); Epithelial Cells Rare /HPF (None Seen); Glucose, Urine Negative (Negative); Hyaline Casts NONE SEEN /LPF (0-2); Ketones Trace (Negative); Leukocyte Esterase Trace (Negative); Nitrite Negative (Negative); Ph 6.5 (4.6-8.0); Protein,Urine Dip 30 (Negative); RBC 21-50 /HPF (0-5); Specific Gravity 1.015 (1.005-1.030); Urobilinogen 0.2 mg/dL (0.2)
[2024-01-06 22:15] LABS: ALBUMIN 2.4 g/dL (3.5-5.0); BILIRUBIN,TOTAL 1.4 mg/dL (0.2-1.3); Calcium 7.8 mg/dL (8.4-10.2); Creatinine 1 1.67 mg/dL (0.52-1.04); EST GLOMERULAR FILTRATION RATE 39.2 ML/MIN; Total Protein 7.3 g/dL (6.3-8.2)
[2024-01-06 22:24] LABS: Potassium 2.9 mmol/L (3.5-5.1)
--- NOTE | 2024-01-06 23:25 | XRAY ---
CLINICAL HISTORY: headache TECHNIQUE: An axial non-contrast CT scan of the brain was performed from the skull base to the high parietal region. "One of the following dose reduction techniques were utilized for this exam: Automated exposure control, adjustment of the mA and/or kV according to patient size, and use of iterative reconstruction." COMPARISON: 06/21/2022 FINDINGS: Hypodense area is identified predominantly in the subcortical location of the right occipital lobe which may represent edema/ischemia/white matter changes, however clinical and history correlation along with an MRI brain is recommended for further evaluation. Mild prominent frontal horns and body of of the lateral ventricles is identified with the by bifrontal diameter measuring 42 mm on axial section. The interventricular septum pellucidum of the lateral ventricles is not well-visualized. The third and fourth ventricles are normal in caliber. No evidence of intracranial hemorrhage or shift of midline structures. A hypodense CSF density focus is identified in the right basal ganglia in the periventricular location. This may represent a prominent CSF space/chronic lacunar infarct. Rest of the brain shows preserved chan-white matter differentiation. Basal cisterns are patent. Cerebellum and brainstem appear grossly unremarkable. Minimal mucosal thickening is identified in the right maxillary and bilateral ethmoid sinuses. Rest of the visualized paranasal sinuses are clear. No pneumatization of the frontal sinuses. Using appropriate bone window settings, no significant osseous abnormality is identified. No calvarial fracture is noted. IMPRESSION: Hypodense area in the subcortical location of the right occipital lobe. This may represent edema/ischemia/white matter changes. Clinical and history correlation along with an MRI brain with contrast is recommended for further evaluation. (New finding) Mild prominent frontal horns and body of of the lateral ventricles with nonvisualization of the interventricular septum pellucidum. Third and fourth ventricles appear normal. (stable finding) Interval evidence of a small CSF density focus in the right basal ganglia, periventricular location. This may represent a chronic lacunar infarct. No evidence of intracranial hemorrhage or mass effect. Electronically Signed by: Terry Villafuerte MD. (01/06/2024 23:20:14 EDT)
[2024-01-07 00:20] VITALS: RESP 17
[2024-01-07] MEDS ORDERED: Ketamine HCl 50 MG/ML ONE (01:31)
[2024-01-07] MEDS ORDERED: ROCEPHIN 1 GM / 100 ML NaCl 1 GM/100 ML IVPB IV ONE (01:32)
[2024-01-07] MEDS: Ketamine HCl 50 MG/ML IV ONE (01:37)
[2024-01-07] MEDS: ROCEPHIN 1 GM / 100 ML NaCl 1 GM/100 ML IVPB IV ONE (01:39)
[2024-01-07] MEDS ORDERED: Magnesium 1 Gm / 100 Ml D5W*** 100 ML IV ONE ×2 (02:21→03:16)
[2024-01-07] MEDS ORDERED: POTASSIUM CHLORIDE 20 mEq IN WATER 100ML 100 ML IV ONE (02:22)
[2024-01-07] MEDS: POTASSIUM CHLORIDE 20 mEq IN WATER 100ML 20 MEQ/100 ML BAG IV SCH (02:25)
[2024-01-07] MEDS: Magnesium 1 Gm / 100 Ml D5W*** 100 ML IV SCH (02:26)
[2024-01-07 03:44] VITALS: BP 103/60; PULSE 99; O2SAT 94
== END 2024-01-07 04:22 | disposition short-term general hospital (02) ==
LOC: ED 20:30
DX: F11.23 Opioid dependence with withdrawal (principal); R11.2 Nausea with vomiting, unspecified; T40.2X5A Adverse effect of other opioids, initial encounter; E87.6 Hypokalemia; R93.0 Abnormal findings on diagnostic imaging of skull and head, not elsewhere classified; N39.0 Urinary tract infection, site not specified; Z79.899 Other long term (current) drug therapy
CPT/HCPCS: 36000; 36415; 70450; 80053; 81001; 83690; 84484; 85025; 87086; 96374; 99285; J0696; J3475; J3480

== ENCOUNTER 2024-02-28 19:13 | Observation (INO) | payer MEDICARE ==
--- NOTE | 2024-02-28 20:08 | ERPHSYRPT ---
- History of Present Illness Historian: patient Exam Limitations: no limitations Patient Subjective Stated Complaint: L sided abd/side pain since last night Triage Nursing Assessment: pt presents to ED with L sided abd/side pain since last night, pt describes it as sharp constant pain, pt states she is a little nauseous but denies any vomiting, pt states she has diarrhea every day d/t hx of Crohns, pt has G tube on L side of abdomen, pt has dialysis catheter in R upper chest that is getting [facility] History: Since last night pt has had sharp constant 10/10 left lower abdominal pain with nausea; denies vomiting, fever, headache, chest pain; admits to diarrhea for years. Allergies/Adverse Reactions: acetaminophen [From Tylenol] Allergy (Severe, Verified 02/28/24 19:33) Swelling of Tongue and Lips THROAT SWELL AND BREATHING DIFFICULTY hydrocodone [From Lortab] Allergy (Severe, Verified 02/28/24 19:33) Swelling of Tongue and Lips natalizumab [From Tysabri] Allergy (Severe, Verified 02/28/24 19:33) Hives onion Allergy (Severe, Verified 02/28/24 19:33) Swelling of Tongue and Lips raw onion only tomato Allergy (Severe, Verified 02/28/24 19:33) Tightness of Throat latex Allergy (Intermediate, Verified 02/28/24 19:33) Hives morphine Adverse Reaction (Severe, Verified 02/28/24 19:33) makes pt mad/angry/volitle Home Medications: Apixaban [Eliquis] 2.5 mg PO BID 08/11/23 [History] Ferrous Sulfate 325 mg [Feosol 325 mg] 325 mg PO UD 08/11/23 [History] Ondansetron ODT 4 MG [Zofran Odt 4 mg] 1 tab SL [id number] PRN 08/11/23 [H istory] Fluconazole 200 mg PO UD 10/18/23 [History] Fludrocortisone Acetate 0.1 mg PO BID 11/21/23 [History] Midodrine HCl [Proamatine] 15 mg PO Q6H 11/21/23 [History] Potassium Chloride in Water [Potassium Cl 10 Meq/100 ml Fidelia] 15 meq PO DAILY 11/21/23 [History] Atorvastatin Calcium 40 mg PO DAILY 12/26/23 [History] Pantoprazole 20 mg [Protonix 20MG Tablet] 20 mg PO DAILY 12/26/23 [Hi story] Potassium Chloride 15 ml PO DAILY 12/26/23 [History] Hx Tetanus, Diphtheria Vaccination/Date Given: Yes Hx Influenza Vaccination/Date Given: No Hx Pneumococcal Vaccination/Date Given: No Travel Risk - International Travel Have you traveled outside of the country in past 3 weeks: No - Emerging Infectious Disease Are you exhibiting symptoms associated with any current EIDs: No - Review of Systems Constitutional: No Fever Cardiac: No Chest Pain Abdominal/Gastrointestinal: Abdominal Pain, Nausea, Diarrhea (for years), No Vomiting Neurological: No Headache - Past Medical History Pertinent Past Medical History: Yes Neurological History: Migraines, Seizures ENT History: No Pertinent History Cardiac History: Deep Vein Thrombosis Respiratory History: Pulmonary Embolism Endocrine Medical History: No Pertinent History Musculoskeletal History: No Pertinent History GI Medical History: Crohns Disease, GERD, Gallbladder Disease, Pancreatitis, Ulcer History: Renal Disease Psycho-Social History: Anxiety, Bipolar, Depression Female Reproductive Disorders: Fibroids, Uterine Cancer Other Medical History: unknown source of acute kidney failure 04/28/2022. 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, brain bleed, hemodialysis patient - Past Surgical History Past Surgical History: Yes Neuro Surgical History: No Pertinent History Cardiac: No Pertinent History Respiratory: No Pertinent History Gastrointestinal: Cholecystectomy, Other Genitourinary: No Pertinent History Musculoskeletal: Orthopedic Surgery Female Surgical History: Hysterectomy, Dilation & Curettage, Other Other Surgical History: intestine resect 4-5 times, pins R foot, multiple port placement, G tube - Female History Hx Last Menstrual Period: post hysterectomy Hx Now: No - Social History Smoking Status: Never smoker Exposure to second hand smoke: Yes Drug Use: none Patient Lives Alone: No - Nursing Vital Signs Nursing Vital Signs: Initial Vital Signs Pulse Rate 114 H 02/28/24 19:33 Respiratory Rate 18 02/28/24 19:33 Blood Pressure 104/68 02/28/24 19:33 O2 Sat by Pulse Oximetry 98 02/28/24 19:33 Pain Scale Pain Intensity 7 - Physical Exam General Appearance: alert Eye Exam: PERRL/EOMI Ears, Nose, Throat Exam: pharynx normal Neck Exam: normal inspection Respiratory Exam: lungs clear Cardiovascular Exam: normal heart sounds Gastrointestinal/Abdomen Exam: normal bowel sounds, other (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 See rest of report.) Ordered Tests: Active Orders 24 hr Category Date Time Status IV Insertion STAT Care 02/28/24 20:07 Active ABDOMEN AND PELVIS W CONTRAST [CT] Stat Exams 02/28/24 23:04 Completed ABDOMEN AND PELVIS W/0 CONTRAS [CT] Stat Exams 02/28/24 20:07 Completed AMYLASE Stat Lab 02/28/24 20:15 Completed CBC W DIFF Stat Lab 02/28/24 20:15 Completed CMP Stat Lab 02/28/24 20:15 Completed CULTURE,URINE Stat Lab 02/28/24 20:09 Received HCG QUALITATIVE, SERUM Stat Lab 02/28/24 20:15 Completed LIPASE Stat Lab 02/28/24 20:15 Completed UA W/RFX UR CULTURE Stat Lab 02/28/24 20:09 Completed Medication Summary Discontinued Medications Generic Name Dose Route Start Last Admin Trade Name Edinq PRN Reason Stop Dose Admin Hydromorphone HCl 1 mg 02/28/24 20:07 02/28/24 20:22 Hydromorphone 1 Mg/1ml Inj IV 02/28/24 20:08 1 mg STAT ONE Administration Hydromorphone HCl Confirm 02/28/24 20:11 Hydromorphone 1 Mg/1ml Inj Administered 02/28/24 20:12 Dose 1 mg .ROUTE .STK-MED ONE Hydromorphone HCl 1 mg 02/28/24 23:03 02/28/24 23:15 Hydromorphone 1 Mg/1ml Inj IV 02/28/24 23:04 Not Given STAT ONE Sodium Chloride 1,000 mls @ 999 mls/hr 02/28/24 20:07 02/28/24 21:24 Sodium Chloride 0.9% 1000 Ml IV 02/28/24 21:07 Infused .Q1H1M STA Infusion Sodium Chloride Confirm 02/28/24 20:11 Sodium Chloride 0.9% 1000 Ml Administered 02/28/24 20:12 Dose 1,000 mls @ ud .ROUTE .STK-MED ONE Piperacillin Sod/Tazobactam 100 mls @ 200 mls/hr 02/29/24 02:06 02/29/24 02:12 Sod 3.375 gm/ Sodium Chloride IV 02/29/24 02:35 200 mls/hr STAT ONE Administration Sodium Chloride Confirm 02/29/24 02:11 Sodium Chloride 100ml Mini-Bag Plus Administered 02/29/24 02:12 Dose 100 mls @ ud IV .STK-MED ONE Ondansetron HCl 4 mg 02/28/24 20:07 02/28/24 20:20 Ondansetron Hcl 4 Mg/2 Ml Vial IV 02/28/24 20:08 4 mg STAT ONE Administration Ondansetron HCl Confirm 02/28/24 20:10 Ondansetron Hcl 4 Mg/2 Ml Vial Administered 02/28/24 20:11 Dose 4 mg .ROUTE .STK-MED ONE Piperacillin Sod/Tazobactam Sod Confirm 02/29/24 02:09 Piperacillin/Tazobactam Sodium 3.375 Gm Vial Administered 02/29/24 02:10 Dose 3.375 gm IV .STK-MED ONE Lab/Rad Data: Laboratory Result Diagrams 02/28/24 20:15 02/28/24 20:15 Laboratory Results 02/28/24 02/28/24 02/28/24 Range/Units 20:15 20:15 20:15 WBC 6.1 (4.0-10.5) x10^3/uL RBC 3.03 L (4.1-5.4) x10^6/uL Hgb 9.2 L (12.0-16.0) g/dL Hct 29.7 L (35-47) % MCV 98.0 (78-100) fL MCH 30.4 (26-32) pg MCHC 31.0 L (32-36) g/dL RDW 15.5 H (11.5-14.0) % Plt Count 121 L (150-450) x10^3/uL MPV 10.4 (7.5-11.0) fL Gran % 67.0 H (36.0-66.0) % Immature Gran % (Auto) 0.3 (0.00-0.4) % Nucleat RBC Rel Count 0.0 (0.00-0.1) % Eos # (Auto) 0.01 (0-0.5) x10^3/uL Immature Gran # (Auto) 0.02 (0.00-0.03) x10^3u/L Absolute Lymphs (auto) 1.04 (1.0-4.6) x10^3/uL Absolute Monos (auto) 0.95 (0.0-1.3) x10^3/uL Absolute Nucleated RBC 0.00 (0.00-0.01) x10^3u/L Lymphocytes % 17.0 L (24.0-44.0) % Monocytes % 15.5 H (0.0-12.0) % Eosinophils % 0.2 (0.00-5.0) % Basophils % 0.0 (0.0-0.4) % Absolute Granulocytes 4.10 (1.4-6.9) x10^3/uL Basophils # 0 (0-0.4) x10^3/uL Sodium 136 (135-145) mmol/L Potassium 4.6 (3.5-5.1) mmol/L Chloride 113 H (98-107) mmol/L Carbon Dioxide 12 L* (22-30) mmol/L Anion Gap 14.2 (5-15) MEQ/L BUN 23 H (7-17) mg/dL Creatinine 1.34 H (0.52-1.04) mg/dL Estimated GFR 51.1 ML/MIN Glucose 112 H (74-106) mg/dL Calcium 8.3 L (8.4-10.2) mg/dL Total Bilirubin 1.60 H (0.2-1.3) mg/dL AST 22 (14-36) U/L ALT 36 H (0-35) U/L Alkaline Phosphatase 215 H (38-126) U/L Serum Total Protein 8.0 (6.3-8.2) g/dL Albumin 3.0 L (3.5-5.0) g/dL Amylase 64 (30-110) U/L Lipase 33 (23-300) U/L Serum HCG, Qual NEGATIVE (NEGATIVE) Urine Color (Yellow) Urine Appearance (Clear) Urine pH (4.6-8.0) Ur Specific Sawyer (1.005-1.030) Urine Protein (Negative) Urine Glucose (UA) (Negative) mg/dL Urine Ketones (Negative) Urine Blood (Negative) Urine Nitrite (Negative) Urine Bilirubin (Negative) Urine Urobilinogen (0.2) mg/dL Ur Leukocyte Esterase (Negative) U Hyaline Cast (Auto) (0-2) /LPF Urine Microscopic RBC (0-5) /HPF Urine Microscopic WBC (0-5) /HPF Ur Epithelial Cells (None Seen) /HPF Urine Bacteria (None Seen) /HPF Urine Culture Reflexed (NO) 02/28/24 Range/Units 20:09 WBC (4.0-10.5) x10^3/uL RBC (4.1-5.4) x10^6/uL Hgb (12.0-16.0) g/dL Hct (35-47) % MCV (78-100) fL MCH (26-32) pg MCHC (32-36) g/dL RDW (11.5-14.0) % Plt Count (150-450) x10^3/uL MPV (7.5-11.0) fL Gran % (36.0-66.0) % Immature Gran % (Auto) (0.00-0.4) % Nucleat RBC Rel Count (0.00-0.1) % Eos # (Auto) (0-0.5) x10^3/uL Immature Gran # (Auto) (0.00-0.03) x10^3u/L Absolute Lymphs (auto) (1.0-4.6) x10^3/uL Absolute Monos (auto) (0.0-1.3) x10^3/uL Absolute Nucleated RBC (0.00-0.01) x10^3u/L Lymphocytes % (24.0-44.0) % Monocytes % (0.0-12.0) % Eosinophils % (0.00-5.0) % Basophils % (0.0-0.4) % Absolute Granulocytes (1.4-6.9) x10^3/uL Basophils # (0-0.4) x10^3/uL Sodium (135-145) mmol/L Potassium (3.5-5.1) mmol/L Chloride (98-107) mmol/L Carbon Dioxide (22-30) mmol/L Anion Gap (5-15) MEQ/L BUN (7-17) mg/dL Creatinine (0.52-1.04) mg/dL Estimated GFR ML/MIN Glucose (74-106) mg/dL Calcium (8.4-10.2) mg/dL Total Bilirubin (0.2-1.3) mg/dL AST (14-36) U/L ALT (0-35) U/L Alkaline Phosphatase (38-126) U/L Serum Total Protein (6.3-8.2) g/dL Albumin (3.5-5.0) g/dL Amylase (30-110) U/L Lipase (23-300) U/L Serum HCG, Qual (NEGATIVE) Urine Color Yellow (Yellow) Urine Appearance Clear (Clear) Urine pH 5.5 (4.6-8.0) Ur Specific Sawyer 1.015 (1.005-1.030) Urine Protein 30 (Negative) Urine Glucose (UA) Negative (Negative) mg/dL Urine Ketones Negative (Negative) Urine Blood Large A (Negative) Urine Nitrite Negative (Negative) Urine Bilirubin Negative (Negative) Urine Urobilinogen 1.0 A (0.2) mg/dL Ur Leukocyte Esterase Trace A (Negative) U Hyaline Cast (Auto) 3-5 A (0-2) /LPF Urine Microscopic RBC 21-50 A (0-5) /HPF Urine Microscopic WBC 0-2 (0-5) /HPF Ur Epithelial Cells None Seen (None Seen) /HPF Urine Bacteria None Seen (None Seen) /HPF Urine Culture Reflexed YES (NO) - Progress Progress: unchanged Discussed with Dr.: Hyde (Spoke with & discussed pt with Dr. eBllo - obs with Kin.), Other (Spoke with Dr. Rubi([id number])(Pt's surgeon at [facility] who performed 5-6 bowel resections on pt with last surgery about 2 years ago) - agrees with antibiotics and observation.) Counseled pt/family regarding: lab results, diagnosis, rad results Medical Desision Making - Diagnostic Testing Diagnostic test were ordered, analyzed, and reviewed by me: Yes Radiological Interpretation: Teleradiologist Report - Departure Departure Disposition: Observation Clinical Impression: Abdominal pain, Crohn's disease Condition: Stable Critical Care Time: No Referrals: OSCAR CALVILLO DO [Primary Care Provider] - Follow up/PCP as directed
[2024-02-28] MEDS ORDERED: Zofran 4 MG/2 ML VIAL ONE (20:10)
[2024-02-28] MEDS ORDERED: Sodium Chloride 0.9% 1000 ML 1,000 ML ONE (20:11)
[2024-02-28] MEDS ORDERED: Hydromorphone 1 mg/ml Injection ONE (20:11)
[2024-02-28] MEDS: Sodium Chloride 0.9% 1000 ML 1,000 ML IV STA (20:18)
[2024-02-28] MEDS: Zofran 4 MG/2 ML VIAL IV ONE (20:20)
[2024-02-28] MEDS: Hydromorphone 1 mg/ml Injection IV ONE ×2 (20:22→23:15)
[2024-02-28 20:23] LABS: Basophil (Absolute #) 0 x10^3/uL (0-0.4); Eosinophil % 0.2 % (0.00-5.0); Eosinophil (Absolute #) 0.01 x10^3/uL (0-0.5); Hematocrit 29.7 % (35-47); Hemoglobin 9.2 g/dL (12.0-16.0); IMMATURE GRAN # 0.02 x10^3u/L (0.00-0.03); IMMATURE GRAN % 0.3 % (0.00-0.4); Lymphocyte (Absolute #) 1.04 x10^3/uL (1.0-4.6); Mean Corpuscular Hemoglobin 30.4 pg (26-32); Mean Platelet Volume 10.4 fL (7.5-11.0); Monocyte (Absolute #) 0.95 x10^3/uL (0.0-1.3); Monocytes % 15.5 % (0.0-12.0); Platelet Count 121 x10^3/uL (150-450); Red Blood Count 3.03 x10^6/uL (4.1-5.4); Red Cell Distribution Width 15.5 % (11.5-14.0); White Blood Count 6.1 x10^3/uL (4.0-10.5)
[2024-02-28 20:33] LABS: Appearance Clear (Clear); Bacteria None Seen /HPF (None Seen); Bilirubin Negative (Negative); Blood Large (Negative); Epithelial Cells None Seen /HPF (None Seen); Glucose, Urine Negative (Negative); Ketones Negative (Negative); Leukocyte Esterase Trace (Negative); Nitrite Negative (Negative); Ph 5.5 (4.6-8.0); Protein,Urine Dip 30 (Negative); RBC 21-50 /HPF (0-5); Specific Gravity 1.015 (1.005-1.030); WBC 0-2 /HPF (0-5)
[2024-02-28 20:35] LABS: ADD URINE CULTURE? YES (NO)
[2024-02-28 20:40] LABS: HCG SERUM TEST NEGATIVE (NEGATIVE)
[2024-02-28 20:41] LABS: ANION GAP 14.2 MEQ/L (5-15); BILIRUBIN,TOTAL 1.6 mg/dL (0.2-1.3); Calcium 8.3 mg/dL (8.4-10.2); Creatinine 1 1.34 mg/dL (0.52-1.04); EST GLOMERULAR FILTRATION RATE 51.1 ML/MIN; Potassium 4.6 mmol/L (3.5-5.1)
--- NOTE | 2024-02-28 22:25 | XRAY ---
CLINICAL HISTORY: pain COMPARISON: 06/24/2023. TECHNIQUE: CT scan of the abdomen and pelvis was performed without IV contrast.Coronal and sagittal reconstructive images were also obtained. One of the following dose reduction techniques were utilized for this exam: Automated exposure control, adjustment of the mA and/or kV according to patient size, use of iterative reconstruction. FINDINGS: Status post ileocolonic anastomosis. Redemonstration of apparent thickening of ileal bowel loop with surrounding fat stranding on right side of abdomen. Minimal free fluid seen in right paracolic gutter. Mild interval increase in size of intrahepatic loculated collection along the anterior abdominal wall with an air locule in it. Interval development of mild loculated fluid collection in the anterior abdominal wall in midline at the incision site, measuring 20 mm in maximum thickness. Feeding tube is seen extending from stomach with its distal tip in proximal jejunal loop. Abdomen: The liver is of average size. No focal or diffuse parenchymal abnormality. The portal vein, intrahepatic biliary radicals and the bile ducts are normal. Post-cholecystectomy status. The spleen is enlarged in size, measuring 15 cm craniocaudally. Thepancreas, adrenal glands are unremarkable. The kidneys are normal in size and shape. No calculi or hydronephrosis. The rest of visualized small bowel loops are unremarkable. Few subcentimetric non-specific mesenteric nodes noted. Appendix is not visualized, possible surgical removal, for correlation with surgical history. Pelvis: The urinary bladder is minimally distended. The rectosigmoid colon is unremarkable. The uterus is surgically removed. No definite bony abnormalities could be depicted. Minimal bilateral pleural reaction noted. Mild pericardial thickening with basal atelectatic bands still noted. IMPRESSION: 1. Status post ileocolonic anastomosis. 2. Redemonstration of apparent thickening of ileal loop with surrounding inflammatory changes with minimal free fluid in right paracolic gutter, possibility of inflammatory enteritis, however microperforation cannot be excluded. Recommended surgical consultation with contrast enhanced CT imaging if clinically warranted 3. Mild interval increase in size of infrahepatic loculated fluid collection along the anterior abdominal wall with an air locule in it. 4. Interval development of mild loculated fluid collection in the anterior abdominal wall in midline at the incision site. 5. Feeding tube extending from stomach with its distal tip in proximal jejunal loop. 6. Still seen splenomegaly [facility] ER was called at [phone] at 10:15 PM EST, 02/28/2024 and results were verbally communicated to Dr. Mak. Electronically Signed by: Terry Villafuerte MD. (02/28/2024 22:20:59 EDT)
--- NOTE | 2024-02-29 01:09 | XRAY ---
CLINICAL HISTORY: pain COMPARISON: Comparison is made recent study of today (02/28/2024 19:44:[address] abdomen/pelviswithout contrast) and with prior abdomen pelvis study dated 11/21/2023. TECHNIQUE: Multiple axial sections of abdomen and pelvis were acquired with intravenous contrast administration. Sagittal and coronal reformatted images were obtained.One of the following dose reduction techniques was utilized for this exam: Automated exposure control, adjustment of the mA and/or kV according to patient size, and use of iterative reconstruction. FINDINGS: Status post ileocolonic anastomosis. Redemonstration of apparent thickening of ileal bowel loop with surrounding fat stranding on right side of abdomen. Minimal free fluid seen in right paracolic gutter. Diffuse mesenteric hyperemia and congestion in the upper and mid abdomen. Minimal to mild perihepatic and perisplenic ascites is identified. A blind ending peripherally enhancing collection with air lucencies is identified in the infrahepatic location tracking inferior medially up to the site of anastomosis raising suspicion of a small infected collection versus trace of prior drainage tube with the other less likely differential of a segment of the small bowel loop. Clinical correlation and follow-up is advised. It measures 2.5 x 1.9 x 5.8 cm Redemonstration of diffuse thickening in the anterior abdominal wall along the midline at the site of insertion with suggestion of a small collection within it. Nasojejunal tube is identified extending from stomach with its distal tip in proximal jejunal loop. Fluid-filled stomach and duodenum are noted. Abdomen: The liver is of average size. No focal or diffuse parenchymal abnormality. The portal vein, intrahepatic biliary radicals and the bile ducts are normal. Gallbladder is surgically removed with metallic clips in the gallbladder fossa. The spleen is enlarged in size, measuring 16.9 cm craniocaudally. Wedge-shaped hypodensity is identified in the inferior and superior splenic pole raising suspicion of splenic infarcts. The pancreas, adrenal glands are unremarkable. The kidneys are normal in size and shape. No calculi or hydronephrosis. The rest of visualized small bowel loops are unremarkable. Few subcentimetric mesenteric and para-aortic lymph nodes are identified. One of the largest left para-aortic lymph node measures 9 mm in short axis. Appendix is not visualized. Pelvis: The urinary bladder is optimally distended and appears grossly unremarkable. The rectosigmoid colon is unremarkable. The uterus is surgically removed. No definite bony abnormalities could be depicted. Minimal bilateral pleural reaction noted. Mild pericardial thickening with basal atelectatic bands still noted. IMPRESSION: Status post ileocolonic anastomosis. Redemonstration of apparent thickening of ileal loop with surrounding inflammatory changes with minimal free fluid in right paracolic gutter. A peripherally enhancing blind-ending area with internal fluid and air lucencies in the infrahepatic location tracking inferomedially up to the anastomosis suggestive of a small infected collection versus trace of prior drainage tube with less likely differential of a segment of the small bowel loop. If clinically indicated, CT abdomen with oral contrast administration is recommended for further evaluation. Diffuse mesenteric hyperemia and congestion in the upper and mid abdomen. Diffuse thickening and edema in the anterior abdominal wall along the midline at the site of insertion with suggestion of a small collection in this region. Nasojejunal tube in place. Fluid-filled stomach and proximal duodenum. Splenomegaly with splenic infarcts predominantly in the inferior splenic pole. Rest of the findings are redemonstrated as stated above. ER was called at [phone] at 12:02 AM [facility] ADJUSTMENT SPECIALIST, 02/29/2024 and the results were communicated to Servando Melo. Electronically Signed by: Terry Villafuerte MD. (02/29/2024 01:04:44 EDT)
[2024-02-29] MEDS ORDERED: PIPERACILLIN/TAZOBACTAM IV ONE (02:09)
[2024-02-29] MEDS ORDERED: Sodium Chloride 100ML MINI-BAG PLUS 100 ML IV ONE (02:11)
[2024-02-29] MEDS: PIPERACILLIN/TAZOBACTAM 3.375 GM in Sodium Chloride 100ML MINI-BAG PLUS 100 ML IV ONE (02:12)
[2024-02-29] MEDS: Zofran 4 MG/2 ML VIAL IV PRN (03:07)
[2024-02-29] MEDS ORDERED: CLARITIN 10 MG ONE (03:28)
[2024-02-29] MEDS ORDERED: BENADRYL 50 MG/ML ONE (03:28)
[2024-02-29] MEDS: BENADRYL 50 MG/ML IV ONE (03:35)
[2024-02-29] MEDS: CLARITIN 10 MG PO ONE (03:35)
[2024-02-29] MEDS ORDERED: MORPHINE SULFATE 4 MG INJ IV PRN (04:24)
[2024-02-29 04:30] LABS: Absolute Neutrophil Ct (ANC) 4.46 x10^3/uL (1.4-6.9); Basophil (Absolute #) 0 x10^3/uL (0-0.4); Eosinophil % 0.2 % (0.00-5.0); Eosinophil (Absolute #) 0.01 x10^3/uL (0-0.5); Hematocrit 31.2 % (35-47); Hemoglobin 9.6 g/dL (12.0-16.0); IMMATURE GRAN # 0.03 x10^3u/L (0.00-0.03); IMMATURE GRAN % 0.5 % (0.00-0.4); Lymphocyte (Absolute #) 0.71 x10^3/uL (1.0-4.6); Lymphocytes % 12.1 % (24.0-44.0); Mean Cell Volume 98.4 fL (78-100); Mean Corpuscular Hemoglobin 30.3 pg (26-32); Mean Corpuscular Hgb Concent. 30.8 g/dL (32-36); Mean Platelet Volume 10.9 fL (7.5-11.0); Monocyte (Absolute #) 0.65 x10^3/uL (0.0-1.3); Monocytes % 11.1 % (0.0-12.0); Neutrophil % 76.1 % (36.0-66.0); Platelet Count 125 x10^3/uL (150-450); Red Blood Count 3.17 x10^6/uL (4.1-5.4); Red Cell Distribution Width 15.5 % (11.5-14.0); White Blood Count 5.9 x10^3/uL (4.0-10.5)
[2024-02-29] MEDS: Hydromorphone 1 mg/ml Injection IV PRN (04:31)
[2024-02-29] MEDS: Levofloxacin 500MG/100ML D5W 500 MG/100 ML BAG IV SCH (04:32)
[2024-02-29] MEDS: Sodium Chloride 0.9% 1000 ML 1,000 ML IV SCH ×2 (04:32→12:31)
[2024-02-29 04:54] LABS: ALBUMIN 2.7 g/dL (3.5-5.0); ANION GAP 12.8 MEQ/L (5-15); BILIRUBIN,TOTAL 1.8 mg/dL (0.2-1.3); Calcium 8.2 mg/dL (8.4-10.2); Creatinine 1 1.31 mg/dL (0.52-1.04); EST GLOMERULAR FILTRATION RATE 52.5 ML/MIN; Potassium 3.7 mmol/L (3.5-5.1); Total Protein 7.2 g/dL (6.3-8.2)
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
[2024-02-29] MEDS ORDERED: PIPERACILLIN/TAZOBACTAM 3.375 GM in Sodium Chloride 100ML MINI-BAG PLUS 100 ML IV SCH (06:00)
[2024-02-29 07:20] VITALS: RESP 17; TEMP 97.3; O2SAT 99
[2024-02-29] MEDS: FLAGYL 500 MG IVPB 500 MG/100 ML BAG IV SCH (08:09)
[2024-02-29] MEDS: Sodium Bicarbonate 50 MEQ/50 ML VIAL*** 150 MEQ in Dextrose 5%/Water IV Soln. 1000 ML 1... IV SCH (08:42)
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
[2024-02-29 10:30] VITALS: BP 96/54; PULSE 114
[2024-02-29] MEDS: FEOSOL 325 MG PO SCH (11:05)
[2024-02-29] MEDS: MAG-OX 400 PO SCH (11:06)
[2024-02-29] MEDS: PROAMATINE PO SCH (11:06)
[2024-02-29] MEDS: FLORINEF PO SCH (11:06)
[2024-02-29] MEDS: ELIQUIS 2.5 MG TABLET PO SCH (11:06)
[2024-02-29] MEDS: Klor Con PO SCH (11:11)
[2024-02-29 12:45] LABS: ANION GAP 11.6 MEQ/L (5-15); Calcium 8.1 mg/dL (8.4-10.2); Creatinine 1 1.4 mg/dL (0.52-1.04); EST GLOMERULAR FILTRATION RATE 48.5 ML/MIN; Potassium 4.4 mmol/L (3.5-5.1)
[2024-02-29] MEDS ORDERED: ZOCOR 20MG PO SCH (22:00)
[2024-03-01] MEDS ORDERED: Levofloxacin 500MG/100ML D5W 500 MG/100 ML BAG IV SCH (10:00)
== END 2024-02-29 12:39 ==
LOC: ED 19:13 → MED SURG 02-29 03:02
PROVIDERS: ADMIT Internal Medicine; ATTEND Internal Medicine
DX: L02.211 Cutaneous abscess of abdominal wall (principal); E43 Unspecified severe protein-calorie malnutrition; Z86.711 Personal history of pulmonary embolism; Z86.718 Personal history of other venous thrombosis and embolism; R10.9 Unspecified abdominal pain; K50.90 Crohn's disease, unspecified, without complications; D64.9 Anemia, unspecified; N18.9 Chronic kidney disease, unspecified; L98.8 Other specified disorders of the skin and subcutaneous tissue; Z79.899 Other long term (current) drug therapy; Z79.01 Long term (current) use of anticoagulants; Z85.42 Personal history of malignant neoplasm of other parts of uterus
CPT/HCPCS: 36415; 74176; 74177; 80048; 80053; 81001; 82150; 83690; 84134; 84703; 85025; 87086; 96360; 96374; 96375; 99285; G0378; Q3014; J1170; J1200; J1956; J2405; A9270-GY

== ENCOUNTER 2024-10-26 16:03 | Observation (INO) | payer MEDICARE ==
--- NOTE | 2024-10-26 17:01 | XRAY ---
Indication: Short of breath. Comparison: August 10, 2022 Portable chest again demonstrates normal heart and lungs. Bony thorax intact again with minimal dextroscoliosis. No new/acute findings.
[2024-10-26 17:02] LABS: Absolute Neutrophil Ct (ANC) 6.48 x10^3/uL (1.56-6.13); BASOPHIL % 0.1 % (0.1-1.2); Basophil (Absolute #) 0.01 x10^3/uL (0.01-0.08); Eosinophil % 0.5 % (0.7-5.8); Eosinophil (Absolute #) 0.05 x10^3/uL (0.04-0.36); Hematocrit 37.7 % (34.1-44.9); Hemoglobin 11.8 g/dL (11.2-15.7); IMMATURE GRAN # 0.03 x10^3u/L (0.001-0.031); IMMATURE GRAN % 0.3 % (0.001-0.429); Lymphocyte (Absolute #) 2.77 x10^3/uL (1.18-3.74); Lymphocytes % 26.3 % (19.3-51.7); Mean Cell Volume 87.9 fL (79.4-94.8); Mean Corpuscular Hemoglobin 27.5 pg (25.6-32.2); Mean Corpuscular Hgb Concent. 31.3 g/dL (32.2-35.5); Mean Platelet Volume 10.7 fL (9.4-12.3); Monocytes % 11.4 % (4.7-12.5); Neutrophil % 61.4 % (34.0-71.1); Platelet Count 192 x10^3/uL (182-369); Red Blood Count 4.29 x10^6/uL (3.93-5.22); Red Cell Distribution Width 17.7 % (11.7-14.4); White Blood Count 10.5 x10^3/uL (3.98-10.04)
[2024-10-26 17:17] LABS: HCG SERUM TEST NEGATIVE (NEGATIVE)
[2024-10-26 17:18] LABS: ALBUMIN 3.2 g/dL (3.5-5.0); BILIRUBIN,TOTAL 0.6 mg/dL (0.2-1.3); Calcium 8.6 mg/dL (8.4-10.2); Creatinine 1 1.81 mg/dL (0.52-1.04); EST GLOMERULAR FILTRATION RATE 35.4 ML/MIN; MAGNESIUM 1.5 mg/dL (1.6-2.3); Total Protein 7.3 g/dL (6.3-8.2)
[2024-10-26 17:25] LABS: Potassium 2.7 mmol/L (3.5-5.1)
[2024-10-26 17:39] LABS: INFLUENZA A NEGATIVE (NEGATIVE); INFLUENZA B NEGATIVE (NEGATIVE); RESPIRATORY SYNCTIAL VIRUS NEGATIVE (NEGATIVE); SARS-CoV-2 Xpert Express NEGATIVE (NEGATIVE)
[2024-10-26] MEDS ORDERED: Klor Con ONE (18:19)
--- NOTE | 2024-10-26 18:25 | ERPHSYRPT ---
- History of Present Illness Source: patient, EMS Exam Limitations: no limitations Patient Subjective Stated Complaint: pt here for low sats at office today, she was there for a follow up apt, she recently had abd surgery, and had minor to abd,pt co feeling sob , no fever Triage Nursing Assessment: pt arrived per ambulance, alert, resp easy, sat 95%, chest clear, abd with bandage in place no drainage noted, has gtub to left side of abd Hx Tetanus, Diphtheria Vaccination/Date Given: Yes Hx Influenza Vaccination/Date Given: No Hx Pneumococcal Vaccination/Date Given: No Immunizations Up to Date: Yes <JAYNE ORLANDO - Last Filed: 10/26/24 18:27> <VU KENDALL - Last Filed: 10/26/24 20:49> - History of Present Illness Time Seen by Provider: 10/26/24 16:10 Physician History: 44 years old female with multiple medical problems including history of PE/DVT was on Eliquis for quite some time, has been off of Eliquis for at least 4 to 5 months, Crohn's disease with multiple abdominal surgeries with resection and anastomosis which later on had fistula which is recently closed by Dr. Vizcaino at on September 30, patient was at regular appointment at primary care where she complained about shortness of breath and is sent in here for further evaluation. Per report patient had a oxygen saturation in upper 70s, patient oxygen saturation is in mid 90s on presentation in the ER without oxygen. Patient does report having shortness of breath off and on for 2 days, minimal nonproductive cough. Denies any fever or chills but reports feeling weak fatigued and tired. Patient is requesting her minor to be removed. Patient has not followed up with her general surgeon. (JAYNE ORLANDO) Allergies/Adverse Reactions: acetaminophen [From Tylenol] Allergy (Severe, Verified 02/28/24 19:33) Swelling of Tongue and Lips THROAT SWELL AND BREATHING DIFFICULTY hydrocodone [From Lortab] Allergy (Severe, Verified 02/28/24 19:33) Swelling of Tongue and Lips natalizumab [From Tysabri] Allergy (Severe, Verified 02/28/24 19:33) Hives onion Allergy (Severe, Verified 02/28/24 19:33) Swelling of Tongue and Lips raw onion only tomato Allergy (Severe, Verified 02/28/24 19:33) Tightness of Throat latex Allergy (Intermediate, Verified 02/28/24 19:33) Hives morphine Adverse Reaction (Severe, Verified 02/28/24 19:33) makes pt mad/angry/volitle piperacillin [From Zosyn] Adverse Reaction (Intermediate, Verified 02/29/24 03:33) Hives tazobactam [From Zosyn] Adverse Reaction (Intermediate, Verified 02/29/24 03:33) Hives Home Medications: Apixaban [Eliquis] 2.5 mg PO BID 08/11/23 [History] Ferrous Sulfate 325 mg [Feosol 325 mg] 325 mg PO DAILY 08/11/23 [History] Ondansetron ODT 4 MG [Zofran Odt 4 mg] 1 tab SL Q8HPRN PRN 08/11/23 [History] Fludrocortisone Acetate 0.1 mg PO BID 11/21/23 [History] Midodrine HCl [Proamatine] 15 mg PO Q6H 11/21/23 [History] Atorvastatin Calcium 40 mg PO HS 12/26/23 [History] Magnesium Oxide 400 mg [Mag-Ox 400] 800 mg PO BID 02/29/24 [History] Potassium Chloride 15 ml PO DAILY 02/29/24 [History] Travel Risk - International Travel Have you traveled outside of the country in past 3 weeks: No - Emerging Infectious Disease Are you exhibiting symptoms associated with any current EIDs: No <JAYNE ORLANDO - Last Filed: 10/26/24 18:27> - Review of Systems Constitutional: Fatigue, Weakness Eyes: No Symptoms Ears, Nose, & Throat: No Symptoms Respiratory: Cough Abdominal/Gastrointestinal: Abdominal Pain, Nausea Genitourinary Symptoms: No Symptoms Musculoskeletal: Arthralgias Skin: No Symptoms Neurological: No Symptoms <JAYNE ORLANDO - Last Filed: 10/26/24 18:27> - Past Medical History Pertinent Past Medical History: Yes Neurological History: Migraines, Seizures ENT History: No Pertinent History Cardiac History: Deep Vein Thrombosis Respiratory History: Pulmonary Embolism Endocrine Medical History: No Pertinent History Musculoskeletal History: No Pertinent History GI Medical History: Crohns Disease, GERD, Gallbladder Disease, Pancreatitis, Ulcer History: Renal Disease Psycho-Social History: Anxiety, Bipolar, Depression Female Reproductive Disorders: Fibroids, Uterine Cancer Other Medical History: unknown source of acute kidney failure 04/28/2022. 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 pt reports she ended dialysis January 2024, reports her kidney values improved enough for her to end that treatment. - Past Surgical History Past Surgical History: Yes Neuro Surgical History: No Pertinent History Cardiac: No Pertinent History Respiratory: No Pertinent History Gastrointestinal: Cholecystectomy, Other Genitourinary: No Pertinent History Musculoskeletal: Orthopedic Surgery Female Surgical History: Hysterectomy, Dilation & Curettage, Other Other Surgical History: intestine resected 4-5 times, pins R foot, multiple port placement, G tube Significant Family History: no pertinent family hx - Female History Hx Last Menstrual Period: none Hx Now: No - Social History Smoking Status: Never smoker Exposure to second hand smoke: No Drug Use: none Patient Lives Alone: No - Social Determinants of Health Will the patient participate in the screening: Yes Do you worry about a steady place to live?: No Do you have any problems with any of the following?: No known problems In the past 12 months,have you had to go without utilities?: No Transportation Issues: No Has anyone in your support network made you feel unsafe?: No Have you or anyone in your house had to go without enough: No <JAYNE ORLANDO - Last Filed: 10/26/24 18:27> - Physical Exam General Appearance: no apparent distress, alert Eye Exam: PERRL/EOMI Ears, Nose, Throat Exam: hearing grossly normal Neck Exam: normal inspection, full range of motion Respiratory Exam: normal breath sounds, lungs clear Cardiovascular/Chest Exam: normal heart sounds, regular rate/rhythm Abdominal/Gastrointestinal Exam: soft, normal bowel sounds, other (Minor in place. Mild discharge from umbilicus area), No tenderness Extremity Exam: non-tender, normal range of motion Neurologic Exam: alert, oriented x 3, cooperative Skin Exam: normal color SpO2 Interpretation: normal SpO2: 98 O2 Delivery: Room Air <JAYNE ORLANDO - Last Filed: 10/26/24 18:27> - Nursing Vital Signs Nursing Vital Signs: Initial Vital Signs Temperature 97.3 F 10/26/24 16:06 Pulse Rate 66 10/26/24 16:06 Respiratory Rate 20 10/26/24 16:06 Blood Pressure 132/88 10/26/24 16:06 O2 Sat by Pulse Oximetry 96 10/26/24 16:06 Pain Scale Pain Intensity 10 Ordered Tests: Active Orders 24 hr Category Date Time Status Telemetry q4h Care 10/26/24 17:27 Active ABDOMEN AND PELVIS W/0 CONTRAS [CT] Stat Exams 10/26/24 18:15 Taken CHEST 1 VIEW (PORTABLE) Stat Exams 10/26/24 16:32 Completed CHEST WITHOUT CONTRAST [CT] Stat Exams 10/26/24 18:15 Taken CBC W DIFF Stat Lab 10/26/24 16:50 Completed CMP Stat Lab 10/26/24 16:50 Completed HCG QUALITATIVE, SERUM Stat Lab 10/26/24 16:50 Completed Lactic Acid Stat Lab 10/26/24 16:32 Completed MAGNESIUM Stat Lab 10/26/24 16:50 Completed PROCALCITONIN Stat Lab 10/26/24 Completed TROPONIN Q4H Lab 10/26/24 16:50 Completed TROPONIN Q4H Lab 10/26/24 20:45 Ordered TROPONIN Q4H Lab 10/27/24 00:45 Ordered Respiratory Therapy Assessment DAILY RT 10/26/24 19:02 Active Medication Summary Generic Name Dose Route Start Last Admin Trade Name Freq PRN Reason Stop Dose Admin Potassium Chloride 20 meq in 100 mls @ 50 mls/hr 10/26/24 17:30 10/26/24 19:42 Potassium Chloride 20 Meq In Water 100ml IV 10/26/24 21:29 50 mls/hr Q2H ROMULO Administration Magnesium Sulfate/Dextrose 100 mls @ 100 mls/hr 10/26/24 17:30 10/26/24 20:20 Magnesium 1 Gm / 100 Ml D5w IV 10/26/24 19:29 100 mls/hr Q1H ROMULO Administration Discontinued Medications Generic Name Dose Route Start Last Admin Trade Name Freq PRN Reason Stop Dose Admin Albuterol/Ipratropium 3 ml 10/26/24 18:29 10/26/24 19:02 Ipratropium/Albuterol Sulfate 3 Ml Ampul.Neb IH 10/26/24 18:30 3 ml STAT ONE Administration Albuterol/Ipratropium Confirm 10/26/24 18:36 Ipratropium/Albuterol Sulfate 3 Ml Ampul.Neb Administered 10/26/24 18:37 Dose 3 ml IH .STK-MED ONE Hydromorphone HCl 1 mg 10/26/24 19:14 10/26/24 19:36 Hydromorphone 1 Mg/1ml Inj IV 10/26/24 19:15 1 mg STAT ONE Administration Hydromorphone HCl Confirm 10/26/24 19:27 Hydromorphone 1 Mg/1ml Inj Administered 10/26/24 19:28 Dose 1 mg .ROUTE .STK-MED ONE Sodium Chloride 1,000 mls @ 999 mls/hr 10/26/24 17:27 10/26/24 19:34 Sodium Chloride 0.9% 1000 Ml IV 10/26/24 18:27 999 mls/hr .Q1H1M STA Administration Sodium Chloride Confirm 10/26/24 19:28 Sodium Chloride 0.9% 1000 Ml Administered 10/26/24 19:29 Dose 1,000 mls @ ud .ROUTE .STK-MED ONE Ceftriaxone Sodium 1 gm in 100 mls @ 200 mls/hr 10/26/24 20:01 Rocephin 1 Gm / 100 Ml Nacl IV 10/26/24 20:30 STAT ONE Lidocaine HCl Confirm 10/26/24 19:28 Lidocaine - Mpf 2% 5 Ml Vial Administered 10/26/24 19:29 Dose 5 ml .ROUTE .STK-MED ONE Potassium Chloride 40 meq 10/26/24 17:27 Potassium Chloride Tab 10 Meq Tab PO 10/26/24 17:28 STAT ONE Potassium Chloride Confirm 10/26/24 18:19 Potassium Chloride Tab 10 Meq Tab Administered 10/26/24 18:20 Dose 40 meq .ROUTE .STK-MED ONE Lab/Rad Data: Laboratory Result Diagrams 10/26/24 16:50 10/26/24 16:50 Laboratory Results 10/26/24 10/26/24 10/26/24 Range/Units Unknown 16:52 16:50 WBC (3.98-10.04) x10^3/uL RBC (3.93-5.22) x10^6/uL Hgb (11.2-15.7) g/dL Hct (34.1-44.9) % MCV (79.4-94.8) fL MCH (25.6-32.2) pg MCHC (32.2-35.5) g/dL RDW (11.7-14.4) % Plt Count (182-369) x10^3/uL MPV (9.4-12.3) fL Gran % (34.0-71.1) % Immature Gran % (Auto) (0.001-0.429) % Nucleat RBC Rel Count (0.00-0.2) % Eos # (Auto) (0.04-0.36) x10^3/uL Immature Gran # (Auto) (0.001-0.031) x10^3u/L Absolute Lymphs (auto) (1.18-3.74) x10^3/uL Absolute Monos (auto) (0.24-0.86) x10^3/uL Absolute Nucleated RBC (0.00-0.012) x10^3u/L Lymphocytes % (19.3-51.7) % Monocytes % (4.7-12.5) % Eosinophils % (0.7-5.8) % Basophils % (0.1-1.2) % Absolute Granulocytes (1.56-6.13) x10^3/uL Basophils # (0.01-0.08) x10^3/uL Sodium (135-145) mmol/L Potassium (3.5-5.1) mmol/L Chloride (98-107) mmol/L Carbon Dioxide (22-30) mmol/L Anion Gap (5-15) MEQ/L BUN (7-17) mg/dL Creatinine (0.52-1.04) mg/dL Estimated GFR ML/MIN Glucose (74-106) mg/dL Lactic Acid (0.4-2.0) Calcium (8.4-10.2) mg/dL Magnesium (1.6-2.3) mg/dL Total Bilirubin (0.2-1.3) mg/dL AST (14-36) U/L ALT (0-35) U/L Alkaline Phosphatase (38-126) U/L Troponin I (0.000-0.033) ng/mL Serum Total Protein (6.3-8.2) g/dL Albumin (3.5-5.0) g/dL Procalcitonin 0.172 H (0.030-0.080) ng/mL Serum HCG, Qual NEGATIVE (NEGATIVE) Influenza Type A Ag NEGATIVE (NEGATIVE) Influenza Type B Ag NEGATIVE (NEGATIVE) RSV (PCR) NEGATIVE (NEGATIVE) SARS-CoV-2 (PCR) NEGATIVE (NEGATIVE) 10/26/24 10/26/24 10/26/24 Range/Units 16:50 16:50 16:50 WBC 10.5 H (3.98-10.04) x10^3/uL RBC 4.29 (3.93-5.22) x10^6/uL Hgb 11.8 (11.2-15.7) g/dL Hct 37.7 (34.1-44.9) % MCV 87.9 (79.4-94.8) fL MCH 27.5 (25.6-32.2) pg MCHC 31.3 L (32.2-35.5) g/dL RDW 17.7 H (11.7-14.4) % Plt Count 192 (182-369) x10^3/uL MPV 10.7 (9.4-12.3) fL Gran % 61.4 (34.0-71.1) % Immature Gran % (Auto) 0.3 (0.001-0.429) % Nucleat RBC Rel Count 0.0 (0.00-0.2) % Eos # (Auto) 0.05 (0.04-0.36) x10^3/uL Immature Gran # (Auto) 0.03 (0.001-0.031) x10^3u/L Absolute Lymphs (auto) 2.77 (1.18-3.74) x10^3/uL Absolute Monos (auto) 1.20 H (0.24-0.86) x10^3/uL Absolute Nucleated RBC 0.00 (0.00-0.012) x10^3u/L Lymphocytes % 26.3 (19.3-51.7) % Monocytes % 11.4 (4.7-12.5) % Eosinophils % 0.5 L (0.7-5.8) % Basophils % 0.1 (0.1-1.2) % Absolute Granulocytes 6.48 H (1.56-6.13) x10^3/uL Basophils # 0.01 (0.01-0.08) x10^3/uL Sodium 141 (135-145) mmol/L Potassium 2.7 L* (3.5-5.1) mmol/L Chloride 121 H (98-107) mmol/L Carbon Dioxide 9 L* (22-30) mmol/L Anion Gap 14.0 (5-15) MEQ/L BUN 14 (7-17) mg/dL Creatinine 1.81 H (0.52-1.04) mg/dL Estimated GFR 35.4 ML/MIN Glucose 90 (74-106) mg/dL Lactic Acid (0.4-2.0) Calcium 8.6 (8.4-10.2) mg/dL Magnesium 1.5 L (1.6-2.3) mg/dL Total Bilirubin 0.60 (0.2-1.3) mg/dL AST 38 H (14-36) U/L ALT 47 H (0-35) U/L Alkaline Phosphatase 143 H (38-126) U/L Troponin I 0.024 (0.000-0.033) ng/mL Serum Total Protein 7.3 (6.3-8.2) g/dL Albumin 3.2 L (3.5-5.0) g/dL Procalcitonin (0.030-0.080) ng/mL Serum HCG, Qual (NEGATIVE) Influenza Type A Ag (NEGATIVE) Influenza Type B Ag (NEGATIVE) RSV (PCR) (NEGATIVE) SARS-CoV-2 (PCR) (NEGATIVE) 10/26/24 Range/Units 16:32 WBC (3.98-10.04) x10^3/uL RBC (3.93-5.22) x10^6/uL Hgb (11.2-15.7) g/dL Hct (34.1-44.9) % MCV (79.4-94.8) fL MCH (25.6-32.2) pg MCHC (32.2-35.5) g/dL RDW (11.7-14.4) % Plt Count (182-369) x10^3/uL MPV (9.4-12.3) fL Gran % (34.0-71.1) % Immature Gran % (Auto) (0.001-0.429) % Nucleat RBC Rel Count (0.00-0.2) % Eos # (Auto) (0.04-0.36) x10^3/uL Immature Gran # (Auto) (0.001-0.031) x10^3u/L Absolute Lymphs (auto) (1.18-3.74) x10^3/uL Absolute Monos (auto) (0.24-0.86) x10^3/uL Absolute Nucleated RBC (0.00-0.012) x10^3u/L Lymphocytes % (19.3-51.7) % Monocytes % (4.7-12.5) % Eosinophils % (0.7-5.8) % Basophils % (0.1-1.2) % Absolute Granulocytes (1.56-6.13) x10^3/uL Basophils # (0.01-0.08) x10^3/uL Sodium (135-145) mmol/L Potassium (3.5-5.1) mmol/L Chloride (98-107) mmol/L Carbon Dioxide (22-30) mmol/L Anion Gap (5-15) MEQ/L BUN (7-17) mg/dL Creatinine (0.52-1.04) mg/dL Estimated GFR ML/MIN Glucose (74-106) mg/dL Lactic Acid 1.6 (0.4-2.0) Calcium (8.4-10.2) mg/dL Magnesium (1.6-2.3) mg/dL Total Bilirubin (0.2-1.3) mg/dL AST (14-36) U/L ALT (0-35) U/L Alkaline Phosphatase (38-126) U/L Troponin I (0.000-0.033) ng/mL Serum Total Protein (6.3-8.2) g/dL Albumin (3.5-5.0) g/dL Procalcitonin (0.030-0.080) ng/mL Serum HCG, Qual (NEGATIVE) Influenza Type A Ag (NEGATIVE) Influenza Type B Ag (NEGATIVE) RSV (PCR) (NEGATIVE) SARS-CoV-2 (PCR) (NEGATIVE) - Progress Progress: improved, re-examined Air Movement: good Blood Culture(s) Obtained: Yes Counseled pt/family regarding: lab results, diagnosis, need for follow-up, rad results <JAYNE ROLANDO - Last Filed: 10/26/24 18:27> - Progress Antibiotics given: Yes Discussed with : Other (Dr. Singh) <VU KENDALL ErickCole - Last Filed: 10/26/24 20:49> - Progress Progress Note: 10/26/24 18:55 44 years old is evaluated in the ER for shortness of breath with oxygen saturation in upper 70s per EMS at primary care office but improved on presentation in the ER without any intervention and currently in mid 90s without oxygen. Patient is not in any distress. Lungs fairly clear to auscultation. She is given DuoNeb. Workup showed normal white count, chemistries with low bicarb of 9, potassium of 2.7 and mag of 1.5. She is given fluids and IV replacement of electrolytes. Patient chest x-ray is negative for any acute cardiopulmonary findings. H as normal troponin and EKG is sinus rhythm with no ST elevations. Patient's lactate is 1.6 but procalcitonin of 0.17. I do not have any obvious focus of infection. I have ordered CT chest and abdomen pelvis without contrast to see if she has any collection in the abdomen or any other acute finding in the chest. During my reevaluation patient states that shortness of breath is resolved Workup is pending, care is transferred to Dr. Kendall at end of my shift for reevaluation and final disposition. (JAYNE ORLANDO) 10/26/24 20:[address] scan of the chest was interpreted by the radiologist and I reviewed the impression. The impression states new subtle bibasilar groundglass airspace disease. Small hiatal hernia. Remainder of chest is negative. 10/26/24 20:[address] scan of the abdomen and pelvis without contrast was interpreted by the radiologist and I reviewed the impression. The impression states new, diffuse air-fluid level distended bowel loops up to 6 cm with fluid leveling favoring postoperative ileus. New PEG tube in place with balloon tip in stomach. No free air and no free fluid. 10/26/24 20:[address] Singh, our telehospitalist on at this time. I reviewed the patient history, physical findings, chief complaint and results of the workup. She agrees to place this patient in observation. Will continue IV antibiotics and provide the patient with a single dose of Lovenox. Patient will have a VQ scan performed tomorrow, 10/27/2024. Patient will receive supplementation of IV potassium and magnesium and repeat labs in the morning. 10/26/24 20:39 Spoke with the patient and the patient's mom by telephone. The patient prefers to stay here at our facility. (VU KENDALL) Medical Desision Making - Independent Historian Additional History obtained from: Family, Customer Success Associate/EMT - External Record(s) Reviewed Records reviewed as a part of evaluation & management: Inpatient - Discussion of managment Care discussed with:: hospitalist (Dr. Singh) Reviewed:: Test results, Need for additional workup - Diagnostic Testing Diagnostic test were ordered, analyzed, and reviewed by me: Yes Radiological Interpretation: Reviewed by me, Teleradiologist Report - Risk of complications The pt has a high risk of morbidity or mortality based on: Decision regarding hospitilization or escalation of hosp level of care <VU KENDALL - Last Filed: 10/26/24 20:49> <JAYNE ORLANDO - Last Filed: 10/26/24 18:27> - Departure Departure Disposition: Observation Critical Care Time: No <VU KENDALL - Last Filed: 10/26/24 20:49> - Departure Clinical Impression: Pulmonary infiltrate on chest x-ray, Shortness of breath, Hypokalemia, Hypomagnesemia Condition: Stable Referrals: OSCAR CALVILLO DO [Primary Care Provider] - Follow up/PCP as directed
[2024-10-26] MEDS ORDERED: DUONEB 0.5-3 MG/3 ml Neb IH ONE (18:36)
[2024-10-26] MEDS: DUONEB 0.5-3 MG/3 ml Neb IH ONE (19:02)
[2024-10-26] MEDS ORDERED: Hydromorphone 1 mg/ml Injection ONE (19:27)
[2024-10-26] MEDS ORDERED: Xylocaine-Mpf 2% 5 Ml Vial ONE (19:28)
[2024-10-26] MEDS ORDERED: Sodium Chloride 0.9% 1000 ML 1,000 ML ONE (19:28)
[2024-10-26] MEDS: Sodium Chloride 0.9% 1000 ML 1,000 ML IV STA (19:34)
[2024-10-26] MEDS: Hydromorphone 1 mg/ml Injection IV ONE (19:36)
[2024-10-26] MEDS: Magnesium 1 Gm / 100 Ml D5W*** 100 ML IV SCH (19:38)
[2024-10-26] MEDS: POTASSIUM CHLORIDE 20 mEq IN WATER 100ML 20 MEQ/100 ML BAG IV SCH (19:42)
[2024-10-26] MEDS ORDERED: Lactated Ringers 1,000 ML IV ONE (22:35)
[2024-10-26] MEDS: Lactated Ringers 1,000 ML IV SCH (22:39)
[2024-10-26] MEDS: ROCEPHIN 1 GM / 100 ML NaCl 1 GM/100 ML IVPB IV SCH (23:19)
--- NOTE | 2024-10-26 23:38 | PCM.HP ---
History of Present Illness - Chief Complaint Chief Complaint: Pneumonia Date: 10/26/24 History of Present Illness: is a 44 year old female with past medical history significant for Crohn's disease status post multiple surgeries the latest surgery back on 09/30 for fistula care, on steroids, seizure disorder, chronic pain syndrome on methadone, depression/anxiety, who came to ER for concern of shortness of breath and desaturation. As per patient she was desaturating up to 70% at home but in the ER her saturation was around 99 2% she did complain of shortness of breath upon exertion for last 2 days without having any chest pain, cough congestion and fever. She did complain of some nausea and 1 episode of vomiting in ER. She told me she always have diarrhea. In regard to her wound some of the christen taken out on its own and one of the wound was oozing yellowish discharge. Patient did complain of some increased tenderness and drainage from the wound. In the ER the vital signs were as follows blood show 132/88 she was afebrile with pulse of 66 saturation is 96% on room air as well as blood work of concern it was remarkable for sodium 141 potassium 2.7 chloride 121 bicarb 9 only BUN 14 creatinine 1.81 magnesium was 1.5 procalcitonin 0.172 she was is negative for influenza and COVID troponin 0.024. Chest x-ray unremarkable chest CT without contrast completed report pending CT abdomen pelvis was also done report pending liver enzymes unremarkable patient admitted for further care - Review of Systems All Other Systems: Reviewed and Negative Medications & Allergies Home Medications: Home Medication List Atorvastatin Calcium 40 mg PO HS 10/26/24 [History Confirmed 10/26/24] Cholecalciferol (Vitamin D3) [Vitamin D3] 50 mcg PO DAILY 10/26/24 [History Con firmed 10/26/24] Hydrocortisone 10 mg PO HS 10/26/24 [History Confirmed 10/26/24] Hydrocortisone 15 mg PO DAILY 10/26/24 [History Confirmed 10/26/24] Levetiracetam [Keppra] 500 mg PO BID 10/26/24 [History Confirmed 10/26/24] Lidocaine 1 each TP DAILY 10/26/24 [History Confirmed 10/26/24] Magnesium Oxide 400 mg [Mag-Ox 400] 400 mg PO BID 10/26/24 [History Confirmed 10/26/24] Methadone HCl 1 tab PO BID 10/26/24 [History Confirmed 10/26/24] Midodrine HCl 5 mg PO TID 10/26/24 [History Confirmed 10/26/24] Multivitamin 1 tab PO DAILY 10/26/24 [History Confirmed 10/26/24] Ondansetron ODT 4 MG [Zofran Odt 4 mg] 4 mg PO Q6H PRN PRN 10/26/24 [History Confirmed 10/26/24] Pantoprazole 20 mg [Protonix 20MG Tablet] 1 tab PO DAILY 10/26/24 [History Confirmed 10/26/24] Tamsulosin HCl 0.4 mg [Flomax 0.4 MG] 1 cap PO DAILY 10/26/24 [History Confirmed 10/26/24] clonazePAM [Clonazepam] 0.25 mg PO BID 10/26/24 [History Confirmed 10/26/24] hydrOXYzine HCL [Hydroxyzine HCl] 10 mg PO Q6HPRN PRN 10/26/24 [History Confirmed 10/26/24] Allergies/Adverse Reactions: Allergies Allergy/AdvReac Type Severity Reaction Status Date / Time acetaminophen [From Tylenol] Allergy Severe Swelling Verified 10/26/24 22:49 of Tongue and Lips hydrocodone [From Lortab] Allergy Severe Swelling Verified 10/26/24 22:49 of Tongue and Lips natalizumab [From Tysabri] Allergy Severe Hives Verified 10/26/24 22:49 onion Allergy Severe Swelling Verified 10/26/24 22:49 of Tongue and Lips tomato Allergy Severe Tightness Verified 10/26/24 22:49 of Throat latex Allergy Intermediate Hives Verified 10/26/24 22:49 morphine AdvReac Severe Verified 10/26/24 22:49 piperacillin [From Zosyn] AdvReac Intermediate Hives Verified 10/26/24 22:49 tazobactam [From Zosyn] AdvReac Intermediate Hives Verified 10/26/24 22:49 - Past Medical History Past Medical History: Yes Neurological History: Migraines, Seizures ENT History: No Pertinent History Cardiac History: Deep Vein Thrombosis Respiratory History: Pulmonary Embolism Endocrine Medical History: No Pertinent History Musculoskelatal History: No Pertinent History GI Medical History: Crohns Disease, GERD, Gallbladder Disease, Pancreatitis, Ulcer History: Renal Disease Pyscho-Social History: Anxiety, Bipolar, Depression Reproductive Disorders: Fibroids, Uterine Cancer Comment: unknown source of acute kidney failure 04/28/2022. 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 pt reports she ended dialysis January 2024, reports her kidney values improved enough for her to end that treatment. - Female History Are you now?: No - Past Surgical History Past Surgical History: Yes Neuro Surgical History: No Pertinent History Cardiac History: No Pertinent History Respiratory Surgery: No Pertinent History GI Surgical History: Cholecystectomy, Other Genitourinary Surgical Hx: No Pertinent History Musculskeletal Surgical Hx: Orthopedic Surgery Female Surgical History: Hysterectomy, Dilation & Curettage, Other Other Surgical History: intestine resected 4-5 times, pins R foot, multiple port placement, G tube Significant Family History: no pertinent family hx - Social History Smoking Status: Former smoker Exposure to second hand smoke: No Alcohol: None Drug Use: none - Social Determinants of Health Will the patient participate in the screening: Yes Do you worry about a steady place to live?: No Do you have any problems with any of the following?: No known problems In the past 12 months,have you had to go without utilities?: No Have you or anyone in your house had to go without enough: No Transportation Issues: No Has anyone in your support network made you feel unsafe?: No Does the patient want assistance with any of the above?: No - Physical Exam Vital Signs: Vital Signs - 24 hr Temp Pulse Resp BP Pulse Ox 10/26/24 22:30 90 18 92 L 10/26/24 22:15 97.1 F 73 18 146/77 95 10/26/24 20:00 81 18 146/78 97 10/26/24 19:02 62 16 97 10/26/24 19:00 77 18 130/83 99 10/26/24 18:33 98 10/26/24 18:10 65 18 98 10/26/24 17:24 64 18 138/79 93 L 10/26/24 16:08 18 95 10/26/24 16:06 97.3 F 66 20 132/88 96 Additional Findings: 10/26/24 23:37 HEENT Young aged, Thin built in no distress NECK Supple,no thyromegaly, CVS S1+S2 + 0, no murmers RESP Bilateral equal air entry without Crepts/Wheezes heard GIT Soft non tender,non distended,Wound seen with some christen fell off,yelowish discharge coming out. Skin, No rah, no Bruises LEGS No Edema PSYCH Normal,mood, judgement and insight NEURO AOX3, no focal deficit Results - Labs Lab/Micro Results: Lab Results-Last 24 Hours 10/26/24 10/26/24 10/26/24 Range/Units 16:32 16:50 16:50 WBC 10.5 H (3.98-10.04) x10^3/uL RBC 4.29 (3.93-5.22) x10^6/uL Hgb 11.8 (11.2-15.7) g/dL Hct 37.7 (34.1-44.9) % MCV 87.9 (79.4-94.8) fL MCH 27.5 (25.6-32.2) pg MCHC 31.3 L (32.2-35.5) g/dL RDW 17.7 H (11.7-14.4) % Plt Count 192 (182-369) x10^3/uL MPV 10.7 (9.4-12.3) fL Gran % 61.4 (34.0-71.1) % Immature Gran % (Auto) 0.3 (0.001-0.429) % Nucleat RBC Rel Count 0.0 (0.00-0.2) % Eos # (Auto) 0.05 (0.04-0.36) x10^3/uL Immature Gran # (Auto) 0.03 (0.001-0.031) x10^3u/L Absolute Lymphs (auto) 2.77 (1.18-3.74) x10^3/uL Absolute Monos (auto) 1.20 H (0.24-0.86) x10^3/uL Absolute Nucleated RBC 0.00 (0.00-0.012) x10^3u/L Lymphocytes % 26.3 (19.3-51.7) % Monocytes % 11.4 (4.7-12.5) % Eosinophils % 0.5 L (0.7-5.8) % Basophils % 0.1 (0.1-1.2) % Absolute Granulocytes 6.48 H (1.56-6.13) x10^3/uL Basophils # 0.01 (0.01-0.08) x10^3/uL Sodium 141 (135-145) mmol/L Potassium 2.7 L* (3.5-5.1) mmol/L Chloride 121 H (98-107) mmol/L Carbon Dioxide 9 L* (22-30) mmol/L Anion Gap 14.0 (5-15) MEQ/L BUN 14 (7-17) mg/dL Creatinine 1.81 H (0.52-1.04) mg/dL Estimated GFR 35.4 ML/MIN Glucose 90 (74-106) mg/dL Lactic Acid 1.6 (0.4-2.0) Calcium 8.6 (8.4-10.2) mg/dL Magnesium 1.5 L (1.6-2.3) mg/dL Total Bilirubin 0.60 (0.2-1.3) mg/dL AST 38 H (14-36) U/L ALT 47 H (0-35) U/L Alkaline Phosphatase 143 H (38-126) U/L Troponin I (0.000-0.033) ng/mL Serum Total Protein 7.3 (6.3-8.2) g/dL Albumin 3.2 L (3.5-5.0) g/dL Procalcitonin (0.030-0.080) ng/mL Serum HCG, Qual (NEGATIVE) Influenza Type A Ag (NEGATIVE) Influenza Type B Ag (NEGATIVE) RSV (PCR) (NEGATIVE) SARS-CoV-2 (PCR) (NEGATIVE) 10/26/24 10/26/24 10/26/24 Range/Units 16:50 16:50 16:52 WBC (3.98-10.04) x10^3/uL RBC (3.93-5.22) x10^6/uL Hgb (11.2-15.7) g/dL Hct (34.1-44.9) % MCV (79.4-94.8) fL MCH (25.6-32.2) pg MCHC (32.2-35.5) g/dL RDW (11.7-14.4) % Plt Count (182-369) x10^3/uL MPV (9.4-12.3) fL Gran % (34.0-71.1) % Immature Gran % (Auto) (0.001-0.429) % Nucleat RBC Rel Count (0.00-0.2) % Eos # (Auto) (0.04-0.36) x10^3/uL Immature Gran # (Auto) (0.001-0.031) x10^3u/L Absolute Lymphs (auto) (1.18-3.74) x10^3/uL Absolute Monos (auto) (0.24-0.86) x10^3/uL Absolute Nucleated RBC (0.00-0.012) x10^3u/L Lymphocytes % (19.3-51.7) % Monocytes % (4.7-12.5) % Eosinophils % (0.7-5.8) % Basophils % (0.1-1.2) % Absolute Granulocytes (1.56-6.13) x10^3/uL Basophils # (0.01-0.08) x10^3/uL Sodium (135-145) mmol/L Potassium (3.5-5.1) mmol/L Chloride (98-107) mmol/L Carbon Dioxide (22-30) mmol/L Anion Gap (5-15) MEQ/L BUN (7-17) mg/dL Creatinine (0.52-1.04) mg/dL Estimated GFR ML/MIN Glucose (74-106) mg/dL Lactic Acid (0.4-2.0) Calcium (8.4-10.2) mg/dL Magnesium (1.6-2.3) mg/dL Total Bilirubin (0.2-1.3) mg/dL AST (14-36) U/L ALT (0-35) U/L Alkaline Phosphatase (38-126) U/L Troponin I 0.024 (0.000-0.033) ng/mL Serum Total Protein (6.3-8.2) g/dL Albumin (3.5-5.0) g/dL Procalcitonin (0.030-0.080) ng/mL Serum HCG, Qual NEGATIVE (NEGATIVE) Influenza Type A Ag NEGATIVE (NEGATIVE) Influenza Type B Ag NEGATIVE (NEGATIVE) RSV (PCR) NEGATIVE (NEGATIVE) SARS-CoV-2 (PCR) NEGATIVE (NEGATIVE) 10/26/24 10/26/24 Range/Units 20:45 Unknown WBC (3.98-10.04) x10^3/uL RBC (3.93-5.22) x10^6/uL Hgb (11.2-15.7) g/dL Hct (34.1-44.9) % MCV (79.4-94.8) fL MCH (25.6-32.2) pg MCHC (32.2-35.5) g/dL RDW (11.7-14.4) % Plt Count (182-369) x10^3/uL MPV (9.4-12.3) fL Gran % (34.0-71.1) % Immature Gran % (Auto) (0.001-0.429) % Nucleat RBC Rel Count (0.00-0.2) % Eos # (Auto) (0.04-0.36) x10^3/uL Immature Gran # (Auto) (0.001-0.031) x10^3u/L Absolute Lymphs (auto) (1.18-3.74) x10^3/uL Absolute Monos (auto) (0.24-0.86) x10^3/uL Absolute Nucleated RBC (0.00-0.012) x10^3u/L Lymphocytes % (19.3-51.7) % Monocytes % (4.7-12.5) % Eosinophils % (0.7-5.8) % Basophils % (0.1-1.2) % Absolute Granulocytes (1.56-6.13) x10^3/uL Basophils # (0.01-0.08) x10^3/uL Sodium (135-145) mmol/L Potassium (3.5-5.1) mmol/L Chloride (98-107) mmol/L Carbon Dioxide (22-30) mmol/L Anion Gap (5-15) MEQ/L BUN (7-17) mg/dL Creatinine (0.52-1.04) mg/dL Estimated GFR ML/MIN Glucose (74-106) mg/dL Lactic Acid (0.4-2.0) Calcium (8.4-10.2) mg/dL Magnesium (1.6-2.3) mg/dL Total Bilirubin (0.2-1.3) mg/dL AST (14-36) U/L ALT (0-35) U/L Alkaline Phosphatase (38-126) U/L Troponin I 0.022 (0.000-0.033) ng/mL Serum Total Protein (6.3-8.2) g/dL Albumin (3.5-5.0) g/dL Procalcitonin 0.172 H (0.030-0.080) ng/mL Serum HCG, Qual (NEGATIVE) Influenza Type A Ag (NEGATIVE) Influenza Type B Ag (NEGATIVE) RSV (PCR) (NEGATIVE) SARS-CoV-2 (PCR) (NEGATIVE) - Radiology Impressions Radiology Exams & Impressions: Radiology Procedures Category Date Time Status ABDOMEN AND PELVIS W/0 CONTRAS [CT] Stat Exams 10/26/24 18:15 Taken CHEST 1 VIEW (PORTABLE) Stat Exams 10/26/24 16:32 Completed CHEST WITHOUT CONTRAST [CT] Stat Exams 10/26/24 18:15 Taken PULMONARY PERF VENTILATION [NUCMED] Stat Exams 10/26/24 21:53 Ordered - Other Procedures and Tests Respiratory Therapy 10/26/24 19:02 Respiratory Therapy Assessment DAILY Telemedicine Encounter - Telemedicine Encounter Telemedicine Encounter: The entirety of this encounter was performed via Telemedicine"This visit was performed using real-time audio and video connection between my location and thepatients locationwith the assistance of a surrogateat the patients location. Written or verbal consent was obtained from the patient/guardian to perform this visit using[facility] technology. Any patient questions regarding the telemedicine interaction were answered. Shortness of breath Patient admitted with desaturation at home saturation was 77% but in ER she was saturating more than 90% on room air X-ray remained unremarkable Troponin negative CT chest concerning for some groundglass opacities Patient admitted for VQ scan that should be done in the morning Will give 1 stat dose of Lovenox Concern for pneumonia CT concerning for ground glass Procalcitonin not impressive Will continue ceftriaxone and azithromycin for now Surgical wound, infection? S/p fistula closed by Dr. Vizcaino at on September 30/2024 Some of the christen fell off and yellowish drainage coming out patient complains of increased tenderness and drainage Continue antibiotics Will send wound culture Wound care consult in the morning Metabolic acidosis Due to ongoing diarrhea Bicarb down to 9 Patient received initial fluid bolus in ER started on bicarb drip Acute on chronic kidney injury stage 3A Baseline creatinine 1.3 Creatinine upon admission 1.81 Continue to hydration Keep avoiding nephrotoxins Hypokalemia/hypomagnesemia Potassium 2.1/magnesium 1.5 Both replaced and will be recheck in the morning Crohn's disease Status post multiple surgeries for abscesses and fistula patient is on steroid, will resume it here Seizure disorder Continue Keppra Seizure precaution in place Chronic and syndrome Continue methadone Anxiety/depression Continue home meds including clonazepam GERD Continue Protonix DVT prophylaxis SCD/Lovenox CODE STATUS full Discharge planning pending clinical stability. I have reviewed patient lab vitals and imaging in detail all question and concerns were addressed
[2024-10-26] MEDS: Hydromorphone 1 mg/ml Injection IV PRN (23:40)
[2024-10-26] MEDS ORDERED: ZOFRAN ODT 4 MG PO PRN (23:45)
[2024-10-27 00:51] LABS: Absolute Neutrophil Ct (ANC) 5.29 x10^3/uL (1.56-6.13); BASOPHIL % 0.3 % (0.1-1.2); Basophil (Absolute #) 0.03 x10^3/uL (0.01-0.08); Eosinophil % 0.9 % (0.7-5.8); Eosinophil (Absolute #) 0.08 x10^3/uL (0.04-0.36); Hematocrit 32.5 % (34.1-44.9); Hemoglobin 10.1 g/dL (11.2-15.7); IMMATURE GRAN # 0.02 x10^3u/L (0.001-0.031); IMMATURE GRAN % 0.2 % (0.001-0.429); Lymphocyte (Absolute #) 2.42 x10^3/uL (1.18-3.74); Lymphocytes % 27.2 % (19.3-51.7); Mean Cell Volume 88.6 fL (79.4-94.8); Mean Corpuscular Hemoglobin 27.5 pg (25.6-32.2); Mean Corpuscular Hgb Concent. 31.1 g/dL (32.2-35.5); Mean Platelet Volume 10.8 fL (9.4-12.3); Monocyte (Absolute #) 1.07 x10^3/uL (0.24-0.86); Neutrophil % 59.4 % (34.0-71.1); Platelet Count 145 x10^3/uL (182-369); Red Blood Count 3.67 x10^6/uL (3.93-5.22); White Blood Count 8.9 x10^3/uL (3.98-10.04)
[2024-10-27] MEDS: Zithromax 500 MG/ 250 ML NaCl Premix 500 MG/250 ML IVPB IV SCH (00:55)
[2024-10-27] MEDS ORDERED: SODIUM BICARBONATE 50 MEQ/50 ML ABBOJECT IV ONE ×2 (01:29→01:31)
[2024-10-27] MEDS ORDERED: Dextrose 5%/Water IV Soln. 1000 ML 1,000 ML IV ONE (01:30)
[2024-10-27] MEDS: Compazine 10 MG/2 ML IV PRN (01:53)
[2024-10-27] MEDS: HYDROCORTISONE PO SCH ×2 (02:04→10:28)
[2024-10-27] MEDS: KEPPRA PO SCH (02:04)
[2024-10-27] MEDS: Sodium Bicarbonate 50 MEQ/50 ML VIAL*** 150 MEQ in Dextrose 5%/Water IV Soln. 1000 ML 1... IV SCH (02:28)
[2024-10-27 05:27] LABS: Creatinine 1 1.56 mg/dL (0.52-1.04); EST GLOMERULAR FILTRATION RATE 42.3 ML/MIN
[2024-10-27 05:28] LABS: Calcium 7.9 mg/dL (8.4-10.2); Potassium 2.7 mmol/L (3.5-5.1)
[2024-10-27 05:29] LABS: ANION GAP 12.3 MEQ/L (5-15); MAGNESIUM 2.6 mg/dL (1.6-2.3)
[2024-10-27 05:33] LABS: ALBUMIN 2.8 g/dL (3.5-5.0); BILIRUBIN,TOTAL 0.5 mg/dL (0.2-1.3); Calcium 7.8 mg/dL (8.4-10.2); Creatinine 1 1.53 mg/dL (0.52-1.04); EST GLOMERULAR FILTRATION RATE 43.3 ML/MIN; Total Protein 6.6 g/dL (6.3-8.2)
[2024-10-27 05:48] LABS: Potassium 2.8 mmol/L (3.5-5.1)
[2024-10-27] MEDS: POTASSIUM CHLORIDE 20 mEq IN WATER 100ML 20 MEQ/100 ML BAG IV SCH (06:07)
--- NOTE | 2024-10-27 07:20 | PCM.NOTE ---
Date and Time: 10/27/24 0715 Subjective Assessment: HPI: is a 44 year old female with past medical history significant for Crohn's disease status post multiple surgeries the latest surgery back on 09/30 for fistula care, on steroids, seizure disorder, chronic pain syndrome on methadone, depression/anxiety, who came to ER 10/27/24 for concern of shortness of breath and desaturation. As per patient she was desaturating up to 70% at home but in the ER her saturation was around 99 2% she did complain of shortness of breath upon exertion for last 2 days without having any chest pain, cough congestion and fever. She did complain of some nausea and 1 episode of vomiting in ER. She told me she always have diarrhea. In regard to her wound some of t he christen taken out on its own and one of the wound was oozing yellowish discharge. Patient did complain of some increased tenderness and drainage from the wound. In the ER the vital signs were as follows blood show 132/88 she was afebrile with pulse of 66 saturation is 96% on room air as well as blood work of concern it was remarkable for sodium 141 potassium 2.7 chloride 121 bicarb 9 only BUN 14 creatinine 1.81 magnesium was 1.5 procalcitonin 0.172 she was is negative for influenza and COVID troponin 0.024. Chest x-ray unremarkable chest CT without contrast with new subtle bilateral groundglass airspace disease. CT abdomen pelvis demonstrating Status post abdominal surgery with PEG tube in situ. Air and fluid distended bowel loops with synchronous fluid leveling favors postoperative ileus. No free fluid/air. 10/27/24: Patient feeling better today. Dyspnea improved - on RA with spo2 at 95%. Endorses abdominal pain at surgical incision site. She has a MLI with christen - open area midway with copious purulent drainage. Dr. Dante David is her surgeon. Potassium and Co2 levels remain low. Plan for continued replenishment of bicarb and potassium. Patient will need follow up with surgeon regarding wound - if no improvement tomorrow may consider transfer. - Review of Systems Constitutional: No Symptoms Eyes: No Symptoms Ears, Nose, & Throat: No Symptoms Respiratory: No Symptoms Cardiac: No Symptoms Abdominal/Gastrointestinal: Abdominal Pain (MLI with christen - open area with yellow drainage), Diarrhea (chrohns ) Genitourinary Symptoms: No Symptoms Musculoskeletal: No Symptoms Skin: Other (abdominal MLI with christen - open area with yellow drainage) Neurological: No Symptoms Psychological: No Symptoms Endocrine: No Symptoms Hematologic/Lymphatic: No Symptoms Immunological/Allergic: No Symptoms Objective Exam General Appearance: no apparent distress Neurologic Exam: alert, oriented x 3, cooperative Skin Exam: normal color Wound Assessment: Skin/Wound Assessment Wound/Incision Assessment Start: 10/27/24 04: 19 Text: Status: Active Freq: Protocol: Document 10/26/24 22:00 OH (Rec: 10/27/24 04:24 OH [id number]) Wound/Incision Assessment Medial ABD Incision Wound Assessment Admission Wound Type Incision Dressing Status Changed Drainage Description Yellow Drainage Odor Mild Odor General Appearance Christen Intact,Draining, Unapproximated Wound Bed Greatest Portion Yellow (Slough) Wound Bed Lesser Portion Red (Granulation) Surrounding Tissue Streator Primary Dressing Absorbant Pad Secondary Dressing border gauze dressing Comment Pt had fistula repair in [facility] on Sep 30, Most christen are still in place, some had come out while pt was still at home . ABD Incision is gaping open midway down the incision with yellowish/brown drainage. Wound culture was done.Opening is circular in shape depth of opening is 1.5 cm,there is what I will call tunneling of 1cm at 3 O'clock,3+cm (was afraid to push q-tip any further down) at 6 O'clock. Pt had old dressing in place on arrival to floor. This RN removed dressing to assess. That's when open surgical incision was noted. Over opening there was one staple hanging over the wound opening , that was removed by this RN because was afraid it would come the rest of the way out and drop down into the opening . Sterile gauze and border gauze dressing applied over wound opening. G-tube at left upper abd was cleaned around with sterile water and fresh drain sponges were placed around that. Pt tolerated procedure fairly well. Dr Oliva states she was going to [facility] for pt. Wound Photo Photo Taken Yes Eye Exam: PERRL Ears, Nose, Throat Exam: normal ENT inspection Neck Exam: normal inspection Respiratory Exam: normal breath sounds, lungs clear Cardiovascular Exam: regular rate/rhythm, normal heart sounds Gastrointestinal/Abdomen Exam: soft, normal bowel sounds, other (abdominal MLI with christen - open area with yellow drainage) Back Exam: normal inspection Pelvic Exam: deferred Rectal Exam: deferred Objective Data Vital Signs: Vital Signs - 24 hr Temp Pulse Resp BP Pulse Ox 10/27/24 04:00 97.3 F 79 18 115/71 95 10/26/24 22:30 90 18 92 L 10/26/24 22:15 97.1 F 73 18 146/77 95 10/26/24 20:00 81 18 146/78 97 10/26/24 19:02 62 16 97 10/26/24 19:00 77 18 130/83 99 10/26/24 18:33 98 10/26/24 18:10 65 18 98 10/26/24 17:24 64 18 138/79 93 L 10/26/24 16:08 18 95 10/26/24 16:06 97.3 F 66 20 132/88 96 Pain Assessment - Last Documented Pain Intensity 4 Pain Scale Used 0-10 Pain Scale Intake and Output: Intake & Output 10/24/24 10/25/24 10/26/24 10/27/24 11:59 11:59 11:59 11:59 Intake Total 1367 Output Total 50 Balance 1317 Weight 46 kg Lab Results: Lab Results-Last 24 Hours 10/26/24 10/26/24 10/26/24 Range/Units 00:40 16:32 16:50 WBC 10.5 H (3.98-10.04) x10^3/uL RBC 4.29 (3.93-5.22) x10^6/uL Hgb 11.8 (11.2-15.7) g/dL Hct 37.7 (34.1-44.9) % MCV 87.9 (79.4-94.8) fL MCH 27.5 (25.6-32.2) pg MCHC 31.3 L (32.2-35.5) g/dL RDW 17.7 H (11.7-14.4) % Plt Count 192 (182-369) x10^3/uL MPV 10.7 (9.4-12.3) fL Gran % 61.4 (34.0-71.1) % Immature Gran % (Auto) 0.3 (0.001-0.429) % Nucleat RBC Rel Count 0.0 (0.00-0.2) % Eos # (Auto) 0.05 (0.04-0.36) x10^3/uL Immature Gran # (Auto) 0.03 (0.001-0.031) x10^3u/L Absolute Lymphs (auto) 2.77 (1.18-3.74) x10^3/uL Absolute Monos (auto) 1.20 H (0.24-0.86) x10^3/uL Absolute Nucleated RBC 0.00 (0.00-0.012) x10^3u/L Lymphocytes % 26.3 (19.3-51.7) % Monocytes % 11.4 (4.7-12.5) % Eosinophils % 0.5 L (0.7-5.8) % Basophils % 0.1 (0.1-1.2) % Absolute Granulocytes 6.48 H (1.56-6.13) x10^3/uL Basophils # 0.01 (0.01-0.08) x10^3/uL Sodium Cancelled Potassium Cancelled Chloride Cancelled Carbon Dioxide Cancelled Anion Gap Cancelled BUN Cancelled Creatinine Cancelled Estimated GFR Cancelled Glucose Cancelled Lactic Acid 1.6 (0.4-2.0) Calcium Cancelled Magnesium Cancelled Total Bilirubin (0.2-1.3) mg/dL AST (14-36) U/L ALT (0-35) U/L Alkaline Phosphatase (38-126) U/L Troponin I (0.000-0.033) ng/mL Serum Total Protein (6.3-8.2) g/dL Albumin (3.5-5.0) g/dL Procalcitonin (0.030-0.080) ng/mL Serum HCG, Qual (NEGATIVE) Influenza Type A Ag (NEGATIVE) Influenza Type B Ag (NEGATIVE) RSV (PCR) (NEGATIVE) SARS-CoV-2 (PCR) (NEGATIVE) 10/26/24 10/26/24 10/26/24 Range/Units 16:50 16:50 16:50 WBC (3.98-10.04) x10^3/uL RBC (3.93-5.22) x10^6/uL Hgb (11.2-15.7) g/dL Hct (34.1-44.9) % MCV (79.4-94.8) fL MCH (25.6-32.2) pg MCHC (32.2-35.5) g/dL RDW (11.7-14.4) % Plt Count (182-369) x10^3/uL MPV (9.4-12.3) fL Gran % (34.0-71.1) % Immature Gran % (Auto) (0.001-0.429) % Nucleat RBC Rel Count (0.00-0.2) % Eos # (Auto) (0.04-0.36) x10^3/uL Immature Gran # (Auto) (0.001-0.031) x10^3u/L Absolute Lymphs (auto) (1.18-3.74) x10^3/uL Absolute Monos (auto) (0.24-0.86) x10^3/uL Absolute Nucleated RBC (0.00-0.012) x10^3u/L Lymphocytes % (19.3-51.7) % Monocytes % (4.7-12.5) % Eosinophils % (0.7-5.8) % Basophils % (0.1-1.2) % Absolute Granulocytes (1.56-6.13) x10^3/uL Basophils # (0.01-0.08) x10^3/uL Sodium 141 Potassium 2.7 L* Chloride 121 H Carbon Dioxide 9 L* Anion Gap 14.0 BUN 14 Creatinine 1.81 H Estimated GFR 35.4 Glucose 90 Lactic Acid (0.4-2.0) Calcium 8.6 Magnesium 1.5 L Total Bilirubin 0.60 (0.2-1.3) mg/dL AST 38 H (14-36) U/L ALT 47 H (0-35) U/L Alkaline Phosphatase 143 H (38-126) U/L Troponin I 0.024 (0.000-0.033) ng/mL Serum Total Protein 7.3 (6.3-8.2) g/dL Albumin 3.2 L (3.5-5.0) g/dL Procalcitonin (0.030-0.080) ng/mL Serum HCG, Qual NEGATIVE (NEGATIVE) Influenza Type A Ag (NEGATIVE) Influenza Type B Ag (NEGATIVE) RSV (PCR) (NEGATIVE) SARS-CoV-2 (PCR) (NEGATIVE) 10/26/24 10/26/24 10/26/24 Range/Units 16:52 20:45 Unknown WBC (3.98-10.04) x10^3/uL RBC (3.93-5.22) x10^6/uL Hgb (11.2-15.7) g/dL Hct (34.1-44.9) % MCV (79.4-94.8) fL MCH (25.6-32.2) pg MCHC (32.2-35.5) g/dL RDW (11.7-14.4) % Plt Count (182-369) x10^3/uL MPV (9.4-12.3) fL Gran % (34.0-71.1) % Immature Gran % (Auto) (0.001-0.429) % Nucleat RBC Rel Count (0.00-0.2) % Eos # (Auto) (0.04-0.36) x10^3/uL Immature Gran # (Auto) (0.001-0.031) x10^3u/L Absolute Lymphs (auto) (1.18-3.74) x10^3/uL Absolute Monos (auto) (0.24-0.86) x10^3/uL Absolute Nucleated RBC (0.00-0.012) x10^3u/L Lymphocytes % (19.3-51.7) % Monocytes % (4.7-12.5) % Eosinophils % (0.7-5.8) % Basophils % (0.1-1.2) % Absolute Granulocytes (1.56-6.13) x10^3/uL Basophils # (0.01-0.08) x10^3/uL Sodium Potassium Chloride Carbon Dioxide Anion Gap BUN Creatinine Estimated GFR Glucose Lactic Acid (0.4-2.0) Calcium Magnesium Total Bilirubin (0.2-1.3) mg/dL AST (14-36) U/L ALT (0-35) U/L Alkaline Phosphatase (38-126) U/L Troponin I 0.022 (0.000-0.033) ng/mL Serum Total Protein (6.3-8.2) g/dL Albumin (3.5-5.0) g/dL Procalcitonin 0.172 H (0.030-0.080) ng/mL Serum HCG, Qual (NEGATIVE) Influenza Type A Ag NEGATIVE (NEGATIVE) Influenza Type B Ag NEGATIVE (NEGATIVE) RSV (PCR) NEGATIVE (NEGATIVE) SARS-CoV-2 (PCR) NEGATIVE (NEGATIVE) 10/27/24 10/27/24 10/27/24 Range/Units 00:40 00:40 00:40 WBC 8.9 (3.98-10.04) x10^3/uL RBC 3.67 L (3.93-5.22) x10^6/uL Hgb 10.1 L (11.2-15.7) g/dL Hct 32.5 L (34.1-44.9) % MCV 88.6 (79.4-94.8) fL MCH 27.5 (25.6-32.2) pg MCHC 31.1 L (32.2-35.5) g/dL RDW 18.0 H (11.7-14.4) % Plt Count 145 L (182-369) x10^3/uL MPV 10.8 (9.4-12.3) fL Gran % 59.4 (34.0-71.1) % Immature Gran % (Auto) 0.2 (0.001-0.429) % Nucleat RBC Rel Count 0.0 (0.00-0.2) % Eos # (Auto) 0.08 (0.04-0.36) x10^3/uL Immature Gran # (Auto) 0.02 (0.001-0.031) x10^3u/L Absolute Lymphs (auto) 2.42 (1.18-3.74) x10^3/uL Absolute Monos (auto) 1.07 H (0.24-0.86) x10^3/uL Absolute Nucleated RBC 0.00 (0.00-0.012) x10^3u/L Lymphocytes % 27.2 (19.3-51.7) % Monocytes % 12.0 (4.7-12.5) % Eosinophils % 0.9 (0.7-5.8) % Basophils % 0.3 (0.1-1.2) % Absolute Granulocytes 5.29 (1.56-6.13) x10^3/uL Basophils # 0.03 (0.01-0.08) x10^3/uL Sodium 139 Potassium 2.7 L* Chloride 122 H Carbon Dioxide 8 L* Anion Gap 12.3 BUN 15 Creatinine 1.56 H Estimated GFR 42.3 Glucose 114 H Lactic Acid (0.4-2.0) Calcium 7.9 L Magnesium 2.6 H Total Bilirubin (0.2-1.3) mg/dL AST (14-36) U/L ALT (0-35) U/L Alkaline Phosphatase (38-126) U/L Troponin I 0.023 (0.000-0.033) ng/mL Serum Total Protein (6.3-8.2) g/dL Albumin (3.5-5.0) g/dL Procalcitonin (0.030-0.080) ng/mL Serum HCG, Qual (NEGATIVE) Influenza Type A Ag (NEGATIVE) Influenza Type B Ag (NEGATIVE) RSV (PCR) (NEGATIVE) SARS-CoV-2 (PCR) (NEGATIVE) 10/27/24 Range/Units 05:05 WBC (3.98-10.04) x10^3/uL RBC (3.93-5.22) x10^6/uL Hgb (11.2-15.7) g/dL Hct (34.1-44.9) % MCV (79.4-94.8) fL MCH (25.6-32.2) pg MCHC (32.2-35.5) g/dL RDW (11.7-14.4) % Plt Count (182-369) x10^3/uL MPV (9.4-12.3) fL Gran % (34.0-71.1) % Immature Gran % (Auto) (0.001-0.429) % Nucleat RBC Rel Count (0.00-0.2) % Eos # (Auto) (0.04-0.36) x10^3/uL Immature Gran # (Auto) (0.001-0.031) x10^3u/L Absolute Lymphs (auto) (1.18-3.74) x10^3/uL Absolute Monos (auto) (0.24-0.86) x10^3/uL Absolute Nucleated RBC (0.00-0.012) x10^3u/L Lymphocytes % (19.3-51.7) % Monocytes % (4.7-12.5) % Eosinophils % (0.7-5.8) % Basophils % (0.1-1.2) % Absolute Granulocytes (1.56-6.13) x10^3/uL Basophils # (0.01-0.08) x10^3/uL Sodium 139 Potassium 2.8 L* Chloride 118 H Carbon Dioxide 11 L* Anion Gap 13.0 BUN 14 Creatinine 1.53 H Estimated GFR 43.3 Glucose 128 H Lactic Acid (0.4-2.0) Calcium 7.8 L Magnesium Total Bilirubin 0.50 (0.2-1.3) mg/dL AST 65 H (14-36) U/L ALT 49 H (0-35) U/L Alkaline Phosphatase 142 H (38-126) U/L Troponin I (0.000-0.033) ng/mL Serum Total Protein 6.6 (6.3-8.2) g/dL Albumin 2.8 L (3.5-5.0) g/dL Procalcitonin (0.030-0.080) ng/mL Serum HCG, Qual (NEGATIVE) Influenza Type A Ag (NEGATIVE) Influenza Type B Ag (NEGATIVE) RSV (PCR) (NEGATIVE) SARS-CoV-2 (PCR) (NEGATIVE) Radiology Exams: Radiology Procedures Category Date Time Status ABDOMEN AND PELVIS W/0 CONTRAS [CT] Stat Exams 10/26/24 18:15 Taken CHEST 1 VIEW (PORTABLE) Stat Exams 10/26/24 16:32 Completed CHEST WITHOUT CONTRAST [CT] Stat Exams 10/26/24 18:15 Taken PULMONARY PERF VENTILATION [NUCMED] Stat Exams 10/26/24 21:53 Ordered Assessment/Plan (1) Hypokalemia Current Visit: Yes Status: Acute Assessment & Plan: -potassium reviewed at 2.8 this morning - 40 meq of IV potassium ordered with repeat labs 2 hours following infusion -tele -monitor renal/lytes Code(s): E87.6 - HYPOKALEMIA (2) Metabolic acidosis Current Visit: No Status: Acute Assessment & Plan: -Most likely secondary to chronic diarrhea from chrohns disease -Co2 level reviewed at 11 - will continue bicarb drip Code(s): E87.20 - ACIDOSIS, UNSPECIFIED (3) Surgical wound infection Current Visit: Yes Status: Acute Assessment & Plan: -s/p fistula repair by Dr. Dante David. 09/30/24 -MLI with christen - with partial dehiscence and drainage -wound culture pending -continue ceftriaxone - consider transfer if no improvement -Has follow up appt coming up Code(s): T81.49XA - INFECTION FOLLOWING A PROCEDURE, OTHER SURGICAL SITE, INIT (4) Pulmonary infiltrate on chest x-ray Current Visit: Yes Status: Acute Assessment & Plan: -ceftriaxone/azithromycin -supplemental oxygen with goal spo2 >92% - currently on RA -CT reviewed with bilateral groundglass airspace disease -WBC reviewed and WNL at 8.9 - trend -No fever Code(s): R91.8 - OTHER NONSPECIFIC ABNORMAL FINDING OF LUNG FIELD (5) Hypomagnesemia Current Visit: Yes Status: Acute Assessment & Plan: -replenished on admisssion -Mag level reviewed at 2.6 - resolved Code(s): E83.42 - HYPOMAGNESEMIA (6) Acute on chronic kidney failure Current Visit: Yes Status: Acute Assessment & Plan: -Baseline creatinine 1.3 -Creatinine upon admission 1.81 - reviewed today at 1.53 -IVF -Avoid nephrotoxic agents -monitor renal/lytes daily Code(s): N17.9 - ACUTE KIDNEY FAILURE, UNSPECIFIED; N18.9 - CHRONIC KIDNEY DISEASE, UNSPECIFIED (7) Seizure disorder Current Visit: Yes Status: Acute Assessment & Plan: -Continue Keppra -Seizure precautions Code(s): G40.909 - EPILEPSY, UNSP, NOT INTRACTABLE, WITHOUT STATUS EPILEPTICUS (8) Chronic pain syndrome Current Visit: Yes Status: Acute Assessment & Plan: -continue methadone Code(s): G89.4 - CHRONIC PAIN SYNDROME (9) Anxiety and depression Current Visit: Yes Status: Acute Assessment & Plan: -Continue home meds including clonazepam Code(s): F41.9 - ANXIETY DISORDER, UNSPECIFIED; F32.A - DEPRESSION, UNSPECIFIED (10) GERD (gastroesophageal reflux disease) Current Visit: Yes Status: Acute Assessment & Plan: -continue protonix Code(s): K21.9 - GASTRO-ESOPHAGEAL REFLUX DISEASE WITHOUT ESOPHAGITIS (11) Shortness of breath Current Visit: Yes Status: Acute Assessment & Plan: -see infiltrate Code(s): R06.02 - SHORTNESS OF BREATH (12) Chronic anemia Current Visit: No Status: Acute Assessment & Plan: -Hgb reviewed and at 10.1 - stable - continue to monitor Code(s): D64.9 - ANEMIA, UNSPECIFIED (13) Crohn disease Current Visit: No Status: Chronic Assessment & Plan: -Status post multiple surgeries for abscesses and fistula -patient is on steroid, will resume it here Code(s): K50.90 - CROHN'S DISEASE, UNSPECIFIED, WITHOUT COMPLICATIONS
[2024-10-27] MEDS ORDERED: ATARAX 25 MG PO PRN (07:24)
[2024-10-27] MEDS: Klor Con PO ONE (08:18)
[2024-10-27] MEDS: ROCEPHIN 1 GM / 100 ML NaCl 1 GM/100 ML IVPB IV ONE (08:19)
[2024-10-27] MEDS: PROAMATINE PO SCH (08:38)
--- NOTE | 2024-10-27 08:42 | XRAY ---
Indication: Short of breath. Multiple contiguous axial images obtained through the chest without contrast. Comparison: August 06, 2023 Lungs now demonstrates subtle bilateral mid to lower lung patchy groundglass airspace opacities without consolidation/effusion. Elsewhere mild pulmonary emphysema and minimal bilateral upper lobe fibrosis/scarring. Heart not enlarged. Aorta is normal in course and caliber. No pathologic mediastinal lymphadenopathy. New small hiatal hernia. Bony thorax intact. CT abdomen/pelvis reported separately. Impression: 1. New subtle bilateral groundglass airspace disease. Correlate clinically. 2. Chronic findings including pulmonary emphysema, fibrosis/scarring, and small hiatal hernia.
--- NOTE | 2024-10-27 08:46 | XRAY ---
Indication: Abdominal pain. Status post abdominal surgery September 30, 2024. History Crohn's disease. Multiple contiguous axial images obtained through the abdomen and pelvis without contrast. Comparison: February 28, 2024 CT chest reported separately. Study is slightly degraded by respiration. New PEG tube with balloon tip in the gastric lumen and new midline abdominal cutaneous christen. New abnormally air and fluid distended bowel loops throughout including rectum with synchronous fluid leveling favoring postoperative ileus. Again cholecystectomy and hysterectomy. No free fluid/air. Remaining liver, pancreas, spleen, adrenal glands, kidneys, ureters, bladder, and aorta are unremarkable for noncontrast exam. Osseous structures intact with new remote appearing L1 superior endplate fracture with less than 25% height loss. Impression: Status post abdominal surgery with PEG tube in situ. Air and fluid distended bowel loops with synchronous fluid leveling favors postoperative ileus. No free fluid/air. Incidental remote L1 endplate fracture.
[2024-10-27 09:30] LABS: ANION GAP 14.6 MEQ/L (5-15); Creatinine 1 1.51 mg/dL (0.52-1.04)
[2024-10-27] MEDS: DOLOPHINE 10MG Tablet PO SCH (09:47)
[2024-10-27] MEDS: Flomax 0.4 MG PO SCH (09:47)
[2024-10-27] MEDS: THERAGRAN MULTIVITAMIN PO SCH (09:48)
[2024-10-27] MEDS: clonazePAM PO SCH (09:48)
[2024-10-27] MEDS: Protonix 20MG Tablet PO SCH (09:49)
[2024-10-27] MEDS: Lidoderm Patch 5% TP SCH (09:49)
[2024-10-27] MEDS ORDERED: ROCEPHIN 1 GM / 100 ML NaCl 1 GM/100 ML IVPB IV SCH (10:00)
[2024-10-27] MEDS ORDERED: Zithromax 500 MG/ 250 ML NaCl Premix 500 MG/250 ML IVPB IV SCH (10:00)
[2024-10-27] MEDS: ENOXAPARIN SODIUM SQ ONE (12:17)
--- NOTE | 2024-10-27 14:00 | XRAY ---
Indication: Short of breath. Pulmonary embolus. Comparison: None Patient received 5.0 mCi technetium 99 MAA for the perfusion portion of the exam. Patient inhaled 36.1 mCi aerosolized technetium 99 DTPA for the ventilation portion of the exam. Multiple planar images obtained. Perfusion images demonstrates homogeneous radiopharmaceutical activity bilaterally. Ventilation images also demonstrates homogeneous radiopharmaceutical activity bilaterally. Small amount of ingested radiopharmaceutical in the GI system. Impression: Normal nuclear medicine ventilation/perfusion scan.
[2024-10-27 14:22] LABS: ANION GAP 15.8 MEQ/L (5-15); Calcium 8.3 mg/dL (8.4-10.2); Creatinine 1 1.42 mg/dL (0.52-1.04); EST GLOMERULAR FILTRATION RATE 47.4 ML/MIN; Potassium 3.6 mmol/L (3.5-5.1)
[2024-10-27 16:30] LABS: A-aADO2 50; ABG HEMOGLOBIN 10.4; ARTERIAL BLD GAS O2 SATURATION 97.3 % (95-100); ARTERIAL BLOOD GAS BASE EXCESS -12.9 (-2.0-2.0); ARTERIAL BLOOD GAS FIO2 21 %; ARTERIAL BLOOD GAS PO2 77 mmHg (75-100); ARTERIAL BLOOD GAS pH 7.37 (7.35-7.45); CARBOXYHEMOGLOBIN 1.3 % THgb (0.0-6.9); HCO3- 10.4 (22-28); HGB O2 SAT 95.3 g/dF (94-100); Methhemoglobin 0.8 % (1.4-1.5); paO2 pAO1 0.61
[2024-10-27 16:31] LABS: ABG POTASSIUM 2.7 (3.5-5.1); ABG SITE LEFT BRACHIAL; ALLEN TEST OK? YES; ARTERIAL BLOOD GAS PCO2 18 mmHg (35-45)
[2024-10-27] MEDS: [UNRECOGNIZED DRUG - OTHER] IV SCH (17:24)
[2024-10-27] MEDS: SODIUM BICARBONATE IV SCH (17:24)
[2024-10-27 17:43] LABS: ANION GAP 15.5 MEQ/L (5-15); Calcium 7.9 mg/dL (8.4-10.2); Creatinine 1 1.34 mg/dL (0.52-1.04); EST GLOMERULAR FILTRATION RATE 50.8 ML/MIN
[2024-10-27 17:57] LABS: Potassium 2.9 mmol/L (3.5-5.1)
[2024-10-27] MEDS: Ativan 2 MG/1 ML VIAL IM ONE (21:41)
--- NOTE | 2024-10-27 23:25 | XRAY ---
CLINICAL HISTORY: picc line placement COMPARISON: None. TECHNIQUE: An X-ray image of the chest is obtained using an AP portable projection. FINDINGS: The left jugular approach central line is seen in situ with its distal tip in the right atrium. Pulmonary Parenchyma: There is no evidence of consolidation, collapse, or focal opacities. No pulmonary nodules are identified. There is no evidence of pleural effusion or pleural thickening. Heart and Mediastinum: Heart size and shape are normal. No mediastinal widening or masses. No hilar or mediastinal lymphadenopathy. Bony Thorax: The bony thorax appears intact without fractures or deformities. Soft Tissues: Soft tissues overlying the chest wall are unremarkable. Tubing artifacts are seen. Surgical clips are seen projected over the right upper abdomen. IMPRESSION: 1. The left jugular approach central line is seen in situ with its distal tip in the right atrium. 2. No evidence of consolidation, collapse, or pleural effusion. Electronically Signed by: Terry Villafuerte MD. (10/27/2024 23:20:52 EST)
[2024-10-27] MEDS ORDERED: Xylocaine-Mpf 2% 5 Ml Vial ONE (23:48)
--- NOTE | 2024-10-28 00:49 | XRAY ---
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 TECHNIQUE: Radiograph of chest was acquired. FINDINGS: Central venous catheter is noted on the left side with its tip at the expected location of the cavoatrial junction. It appears repositioned and pulled up. Lungs are clear and well-expanded with no pulmonary infiltrate. No pleural effusion is detected. The cardio-mediastinal silhouette is within normal limits. No acute osseous abnormality. Rest of the findings are unchanged compared to the previous radiograph. IMPRESSION: 1. Central venous catheter is noted on the left side with its tip at the expected location of the cavoatrial junction. It appears repositioned and pulled up. 2. No obvious lung field/cardiomediastinal abnormality detected. Electronically Signed by: Eliot Sims MD. (10/28/2024 00:44:40 EST)
[2024-10-28] MEDS: POTASSIUM CHLORIDE 20 mEq IN WATER 100ML 100 ML IV SCH ×2 (01:15→12:34)
[2024-10-28] MEDS: ROCEPHIN 1 GM / 100 ML NaCl 1 GM/100 ML IVPB IV SCH (01:31)
[2024-10-28] MEDS: Zithromax 500 MG/ 250 ML NaCl Premix 500 MG/250 ML IVPB IV SCH (02:31)
[2024-10-28] MEDS: Sodium Chloride 0.9% 500 ML 500 ML IV SCH (03:29)
--- NOTE | 2024-10-28 05:18 | PCM.NOTE ---
Date and Time: 10/28/24 0516 Subjective Assessment: HPI: is a 44 year old female with past medical history significant for Crohn's disease status post multiple surgeries the latest surgery back on 09/30 for fistula care, on steroids, seizure disorder, chronic pain syndrome on methadone, depression/anxiety, who came to ER 10/27/24 for concern of shortness of breath and desaturation. As per patient she was desaturating up to 70% at home but in the ER her saturation was around 99 2% she did complain of shortness of breath upon exertion for last 2 days without having any chest pain, cough congestion and fever. She did complain of some nausea and 1 episode of vomiting in ER. She told me she always have diarrhea. In regard to her wound some of t he christen taken out on its own and one of the wound was oozing yellowish discharge. Patient did complain of some increased tenderness and drainage from the wound. In the ER the vital signs were as follows blood show 132/88 she was afebrile with pulse of 66 saturation is 96% on room air as well as blood work of concern it was remarkable for sodium 141 potassium 2.7 chloride 121 bicarb 9 only BUN 14 creatinine 1.81 magnesium was 1.5 procalcitonin 0.172 she was is negative for influenza and COVID troponin 0.024. Chest x-ray unremarkable chest CT without contrast with new subtle bilateral groundglass airspace disease. CT abdomen pelvis demonstrating Status post abdominal surgery with PEG tube in situ. Air and fluid distended bowel loops with synchronous fluid leveling favors postoperative ileus. No free fluid/air. Wound cultures from abdominal wound drainage with gram - ID. Will start Merrem. Spoke with Dr. David (surgeon at ) regarding patient's case. Plan to treat wound based on cultures and she can follow up with him upon discharge. 10/27/24: Patient feeling better today. Dyspnea improved - on RA with spo2 at 95%. Endorses abdominal pain at surgical incision site. She has a MLI with christen - open area midway with copious purulent drainage. Dr. Dante David is her surgeon. Potassium and Co2 levels remain low. Plan for continued replenishment of bicarb and potassium. Patient will need follow up with surgeon regarding wound - if no improvement tomorrow may consider transfer. 10/28/24: Abdominal pain better today. No further dyspnea. Wound cultures from abdominal wound drainage with gram - ID. Will start Merrem. Spoke with Dr. David (surgeon at ) regarding patient's case. Plan to treat wound based on cultures and she can follow up with him upon discharge. Potassium levels low and replenishing per potassium protocol. Co2 levels improved with bicarb drip. Denies fever,cough, sob, cp, BRADSHAW, dizziness, N/V/D. - Review of Systems Constitutional: No Symptoms Eyes: No Symptoms Ears, Nose, & Throat: No Symptoms Respiratory: No Symptoms Cardiac: No Symptoms Abdominal/Gastrointestinal: Abdominal Pain (at MLI surgical site), Diarrhea (chronic) Genitourinary Symptoms: No Symptoms Musculoskeletal: No Symptoms Skin: No Symptoms Neurological: No Symptoms Psychological: No Symptoms Endocrine: No Symptoms Hematologic/Lymphatic: No Symptoms Immunological/Allergic: No Symptoms Objective Exam General Appearance: no apparent distress Neurologic Exam: alert, oriented x 3, cooperative Skin Exam: pale Wound Assessment: Skin/Wound Assessment Wound/Incision Assessment Start: 10/27/24 04:19 Text: Status: Active Freq: Protocol: Document 10/26/24 22:00 PA (Rec: 10/27/24 04:24 PA [id number]) Wound/Incision Assessment Medial ABD Incision Wound Assessment Admission Wound Type Incision Dressing Status Changed Drainage Description Yellow Drainage Odor Mild Odor General Appearance Christen Intact,Draining, Unapproximated Wound Bed Greatest Portion Yellow (Slough) Wound Bed Lesser Portion Red (Granulation) Surrounding Tissue Bressler Primary Dressing Absorbant Pad Secondary Dressing border gauze dressing Comment Pt had fistula repair in [facility] on Sep 30, Most christen are still in place, some had come out while pt was still at home . ABD Incision is gaping open midway down the incision with yellowish/brown drainage. Wound culture was done.Opening is circular in shape depth of opening is 1.5 cm,there is what I will call tunneling of 1cm at 3 O'clock,3+cm (was afraid to push q-tip any further down) at 6 O'clock. Pt had old dressing in place on arrival to floor. This RN removed dressing to assess. That's when open surgical incision was noted. Over opening there was one staple hanging over the wound opening , that was removed by this RN because was afraid it would come the rest of the way out and drop down into the opening . Sterile gauze and border gauze dressing applied over wound opening. G-tube at left upper abd was cleaned around with sterile water and fresh drain sponges were placed around that. Pt tolerated procedure fairly well. Dr Oliva states she was going to [facility] wound care for pt. Wound Photo Photo Taken Yes Eye Exam: PERRL Ears, Nose, Throat Exam: normal ENT inspection Neck Exam: normal inspection Respiratory Exam: normal breath sounds, lungs clear Cardiovascular Exam: regular rate/rhythm, normal heart sounds Gastrointestinal/Abdomen Exam: soft, normal bowel sounds, other (MLI with wound dehiscence and purulent drainage -covered in bandage.) Extremity Exam: normal inspection Objective Data Vital Signs: Vital Signs - 24 hr Temp Pulse Resp BP Pulse Ox 10/28/24 04:00 98 F 105 H 17 117/61 96 10/28/24 00:00 98.3 F 123 H 21 133/79 97 10/27/24 19:55 98.3 F 123 H 21 133/79 97 10/27/24 16:00 97.8 F 102 H 16 133/84 97 10/27/24 11:33 98.0 F 110 H 16 131/77 95 10/27/24 07:24 97.7 F 73 16 110/64 100 Pain Assessment - Last Documented Pain Intensity 10 Pain Scale Used [facility] Intake and Output: Intake & Output 10/25/24 10/26/24 10/27/24 10/28/24 11:59 11:59 11:59 11:59 Intake Total 1947 1620 Output Total 450 125 Balance 1497 1495 Weight 46 kg Lab Results: Lab Results-Last 24 Hours 10/26/24 10/26/24 10/27/24 Range/Units 00:40 16:50 00:40 Puncture Site pCO2 (35-45) mmHg pO2 (75-100) mmHg Base Excess (-2.0-2.0) O2 Saturation (94-100) g/dF ABG pH (7.35-7.45) ABG HCO3 (22-28) ABG O2 Sat (Measured) (95-100) % Davin Test A-a Gradient a/A Ratio Hemoglobin Carboxyhemoglobin (0.0-6.9) % THgb Methemoglobin (1.4-1.5) % Temperature C POC O2 Flow Rate % Sodium Cancelled 141 139 Potassium Cancelled 2.7 L* 2.7 L* Chloride Cancelled 121 H 122 H Carbon Dioxide Cancelled 9 L* 8 L* Anion Gap Cancelled 14.0 12.3 BUN Cancelled 14 15 Creatinine Cancelled 1.81 H 1.56 H Estimated GFR Cancelled 35.4 42.3 Glucose Cancelled 90 114 H Calcium Cancelled 8.6 7.9 L Magnesium Cancelled 1.5 L 2.6 H Total Bilirubin 0.60 (0.2-1.3) mg/dL AST 38 H (14-36) U/L ALT 47 H (0-35) U/L Alkaline Phosphatase 143 H (38-126) U/L Serum Total Protein 7.3 (6.3-8.2) g/dL Albumin 3.2 L (3.5-5.0) g/dL 10/27/24 10/27/24 10/27/24 Range/Units 05:05 09:05 13:55 Puncture Site pCO2 (35-45) mmHg pO2 (75-100) mmHg Base Excess (-2.0-2.0) O2 Saturation (94-100) g/dF ABG pH (7.35-7.45) ABG HCO3 (22-28) ABG O2 Sat (Measured) (95-100) % Davin Test A-a Gradient a/A Ratio Hemoglobin Carboxyhemoglobin (0.0-6.9) % THgb Methemoglobin (1.4-1.5) % Temperature C POC O2 Flow Rate % Sodium 139 140 144 Potassium 2.8 L* 3.0 L* 3.6 Chloride 118 H 116 H 124 H Carbon Dioxide 11 L* 13 L* 7 L* Anion Gap 13.0 14.6 15.8 H BUN 14 14 12 Creatinine 1.53 H 1.51 H 1.42 H Estimated GFR 43.3 44.0 47.4 Glucose 128 H 122 H 108 H Calcium 7.8 L 8.0 L 8.3 L Magnesium Total Bilirubin 0.50 (0.2-1.3) mg/dL AST 65 H (14-36) U/L ALT 49 H (0-35) U/L Alkaline Phosphatase 142 H (38-126) U/L Serum Total Protein 6.6 (6.3-8.2) g/dL Albumin 2.8 L (3.5-5.0) g/dL 10/27/24 10/27/24 Range/Units 16:25 17:22 Puncture Site LEFT BRACHIAL pCO2 18 L* (35-45) mmHg pO2 77 (75-100) mmHg Base Excess -12.9 L (-2.0-2.0) O2 Saturation 95.3 (94-100) g/dF ABG pH 7.37 (7.35-7.45) ABG HCO3 10.4 L* (22-28) ABG O2 Sat (Measured) 97.3 (95-100) % Davin Test YES A-a Gradient 50 a/A Ratio 0.61 Hemoglobin 10.4 Carboxyhemoglobin 1.3 (0.0-6.9) % THgb Methemoglobin 0.8 L (1.4-1.5) % Temperature 37.0 C POC O2 Flow Rate 21 % Sodium 140 Potassium 2.7 L* 2.9 L* Chloride 118 H Carbon Dioxide 10 L* Anion Gap 15.5 H BUN 11 Creatinine 1.34 H Estimated GFR 50.8 Glucose 109 H Calcium 7.9 L Magnesium Total Bilirubin (0.2-1.3) mg/dL AST (14-36) U/L ALT (0-35) U/L Alkaline Phosphatase (38-126) U/L Serum Total Protein (6.3-8.2) g/dL Albumin (3.5-5.0) g/dL Radiology Exams: Radiology Procedures Category Date Time Status ABDOMEN AND PELVIS W/0 CONTRAS [CT] Stat Exams 10/26/24 18:15 Completed CHEST 1 VIEW (PORTABLE) Stat Exams 10/26/24 16:32 Completed CHEST 1 VIEW (PORTABLE) Stat Exams 10/27/24 22:54 Completed CHEST 1 VIEW (PORTABLE) Urgent Exams 10/28/24 00:18 Completed CHEST WITHOUT CONTRAST [CT] Stat Exams 10/26/24 18:15 Completed PULMONARY PERF VENTILATION [NUCMED] Stat Exams 10/27/24 12:00 Completed Assessment/Plan (1) Hypokalemia Current Visit: Yes Status: Acute Assessment & Plan: -potassium reviewed at 2.8 this morning - 40 meq of IV potassium ordered with repeat labs 2 hours following infusion -tele -monitor renal/lytes 10/28: potassium at 2.4 - will replenish per potassium protocol Code(s): E87.6 - HYPOKALEMIA (2) Metabolic acidosis Current Visit: No Status: Acute Assessment & Plan: -Most likely secondary to chronic diarrhea from chrohns disease -Co2 level reviewed at 11 - will continue bicarb drip 10/28: -Co2 levels reviewed at 18- continue bicarb drip - repeat CMP this afternoon Code(s): E87.20 - ACIDOSIS, UNSPECIFIED (3) Surgical wound infection Current Visit: Yes Status: Acute Assessment & Plan: -s/p fistula repair by Dr. Dante David. 09/30/24 -MLI with christen - with partial dehiscence and drainage -wound culture pending -continue ceftriaxone - consider transfer if no improvement -Has follow up appt coming up 10/28: -Discussed case with patient's surgeon Dr. David- wound cultures growing gram - ID - will treat with Merrem for now- follow culture- patient to follow up OP once discharged Code(s): T81.49XA - INFECTION FOLLOWING A PROCEDURE, OTHER SURGICAL SITE, INIT (4) Pulmonary infiltrate on chest x-ray Current Visit: Yes Status: Acute Assessment & Plan: -ceftriaxone/azithromycin -supplemental oxygen with goal spo2 >92% - currently on RA -CT reviewed with bilateral groundglass airspace disease -WBC reviewed and WNL at 8.9 - trend -No fever 10/28: -ABx changed to merrem for wound coverage -on RA no dyspnea Code(s): R91.8 - OTHER NONSPECIFIC ABNORMAL FINDING OF LUNG FIELD (5) Hypomagnesemia Current Visit: Yes Status: Acute Assessment & Plan: -replenished on admisssion -Mag level reviewed at 2.6 - resolved Code(s): E83.42 - HYPOMAGNESEMIA (6) Acute on chronic kidney failure Current Visit: Yes Status: Acute Assessment & Plan: -Baseline creatinine 1.3 -Creatinine upon admission 1.81 - reviewed today at 1.53 -IVF -Avoid nephrotoxic agents -monitor renal/lytes daily 10/28: -creat reviewed at 1.26 -continue to monitor Code(s): N17.9 - ACUTE KIDNEY FAILURE, UNSPECIFIED; N18.9 - CHRONIC KIDNEY DISEASE, UNSPECIFIED (7) Seizure disorder Current Visit: Yes Status: Acute Assessment & Plan: -Continue Keppra -Seizure precautions Code(s): G40.909 - EPILEPSY, UNSP, NOT INTRACTABLE, WITHOUT STATUS EPILEPTICUS (8) Chronic pain syndrome Current Visit: Yes Status: Acute Assessment & Plan: -continue methadone Code(s): G89.4 - CHRONIC PAIN SYNDROME (9) Anxiety and depression Current Visit: Yes Status: Acute Assessment & Plan: -Continue home meds including clonazepam Code(s): F41.9 - ANXIETY DISORDER, UNSPECIFIED; F32.A - DEPRESSION, UNSPECIFIED (10) GERD (gastroesophageal reflux disease) Current Visit: Yes Status: Acute Assessment & Plan: -continue protonix Code(s): K21.9 - GASTRO-ESOPHAGEAL REFLUX DISEASE WITHOUT ESOPHAGITIS (11) Shortness of breath Current Visit: Yes Status: Acute Assessment & Plan: -see infiltrate 10/28: -resolved Code(s): R06.02 - SHORTNESS OF BREATH (12) Chronic anemia Current Visit: No Status: Acute Assessment & Plan: -Hgb reviewed and at 8.6- stable - continue to monitor Code(s): D64.9 - ANEMIA, UNSPECIFIED (13) Crohn disease Current Visit: No Status: Chronic Assessment & Plan: -Status post multiple surgeries for abscesses and fistula -patient is on steroid, will resume it here Code(s): K50.90 - CROHN'S DISEASE, UNSPECIFIED, WITHOUT COMPLICATIONS Code(s): E87.6 - HYPOKALEMIA (2) Metabolic acidosis Current Visit: No Status: Acute Code(s): E87.20 - ACIDOSIS, UNSPECIFIED (3) Surgical wound infection Current Visit: Yes Status: Acute Code(s): T81.49XA - INFECTION FOLLOWING A PROCEDURE, OTHER SURGICAL SITE, INIT (4) Pulmonary infiltrate on chest x-ray Current Visit: Yes Status: Acute Code(s): R91.8 - OTHER NONSPECIFIC ABNORMAL FINDING OF LUNG FIELD (5) Hypomagnesemia Current Visit: Yes Status: Acute Code(s): E83.42 - HYPOMAGNESEMIA (6) Acute on chronic kidney failure Current Visit: Yes Status: Acute Code(s): N17.9 - ACUTE KIDNEY FAILURE, UNSPECIFIED; N18.9 - CHRONIC KIDNEY DISEASE, UNSPECIFIED (7) Seizure disorder Current Visit: Yes Status: Acute Code(s): G40.909 - EPILEPSY, UNSP, NOT INTRACTABLE, WITHOUT STATUS EPILEPTICUS (8) Chronic pain syndrome Current Visit: Yes Status: Acute Code(s): G89.4 - CHRONIC PAIN SYNDROME (9) Anxiety and depression Current Visit: Yes Status: Acute Code(s): F41.9 - ANXIETY DISORDER, UNSPECIFIED; F32.A - DEPRESSION, UNSPECIFIED (10) GERD (gastroesophageal reflux disease) Current Visit: Yes Status: Acute Code(s): K21.9 - GASTRO-ESOPHAGEAL REFLUX DISEASE WITHOUT ESOPHAGITIS (11) Shortness of breath Current Visit: Yes Status: Acute Code(s): R06.02 - SHORTNESS OF BREATH (12) Chronic anemia Current Visit: No Status: Acute Code(s): D64.9 - ANEMIA, UNSPECIFIED (13) Crohn disease Current Visit: No Status: Chronic Code(s): K50.90 - CROHN'S DISEASE, UNSPECIFIED, WITHOUT COMPLICATIONS
[2024-10-28 05:19] LABS: Absolute Neutrophil Ct (ANC) 4.19 x10^3/uL (1.56-6.13); BASOPHIL % 0.2 % (0.1-1.2); Basophil (Absolute #) 0.01 x10^3/uL (0.01-0.08); Eosinophil % 0.3 % (0.7-5.8); Eosinophil (Absolute #) 0.02 x10^3/uL (0.04-0.36); Hematocrit 26.9 % (34.1-44.9); Hemoglobin 8.6 g/dL (11.2-15.7); IMMATURE GRAN # 0.01 x10^3u/L (0.001-0.031); IMMATURE GRAN % 0.2 % (0.001-0.429); Lymphocyte (Absolute #) 1.15 x10^3/uL (1.18-3.74); Lymphocytes % 19.3 % (19.3-51.7); Mean Cell Volume 86.8 fL (79.4-94.8); Mean Corpuscular Hemoglobin 27.7 pg (25.6-32.2); Mean Platelet Volume 10.8 fL (9.4-12.3); Monocyte (Absolute #) 0.59 x10^3/uL (0.24-0.86); Monocytes % 9.9 % (4.7-12.5); Neutrophil % 70.1 % (34.0-71.1); Platelet Count 142 x10^3/uL (182-369); Red Cell Distribution Width 19.1 % (11.7-14.4)
[2024-10-28 05:43] LABS: ALBUMIN 2.5 g/dL (3.5-5.0); ANION GAP 10.7 MEQ/L (5-15); BILIRUBIN,TOTAL 0.3 mg/dL (0.2-1.3); Calcium 7.5 mg/dL (8.4-10.2); Creatinine 1 1.26 mg/dL (0.52-1.04); EST GLOMERULAR FILTRATION RATE 54.7 ML/MIN; MAGNESIUM 1.7 mg/dL (1.6-2.3)
[2024-10-28 05:47] LABS: Potassium 2.9 mmol/L (3.5-5.1)
[2024-10-28 16:59] LABS: ALBUMIN 2.7 g/dL (3.5-5.0); ANION GAP 10.8 MEQ/L (5-15); BILIRUBIN,TOTAL 0.2 mg/dL (0.2-1.3); Calcium 7.7 mg/dL (8.4-10.2); Creatinine 1 1.18 mg/dL (0.52-1.04); EST GLOMERULAR FILTRATION RATE 59.1 ML/MIN; Total Protein 6.2 g/dL (6.3-8.2)
[2024-10-28 17:02] LABS: Potassium 2.8 mmol/L (3.5-5.1)
[2024-10-28] MEDS: PHARMACY RENAL DOSING MC ONE (17:50)
[2024-10-28] MEDS: SODIUM BICARBONATE 50 MEQ/50 ML ABBOJECT IV ONE (17:52)
[2024-10-28] MEDS: Klor Con PO ONE (20:14)
[2024-10-28] MEDS: HYDROCORTISONE PO SCH (20:14)
[2024-10-28] MEDS: POTASSIUM CHLORIDE 20 mEq IN WATER 100ML 20 MEQ/100 ML BAG IV ONE (20:15)
[2024-10-28] MEDS: SODIUM BICARBONATE PO SCH (21:43)
[2024-10-28] MEDS: QUESTRAN Light 4 GM Packet PO SCH (21:43)
[2024-10-28] MEDS: Merrem 1 GM in Sodium Chloride 100ML MINI-BAG PLUS 100 ML IV SCH (22:32)
[2024-10-29] MEDS: Klor Con PO ONE (00:17)
[2024-10-29 05:22] LABS: Basophil (Absolute #) 0 x10^3/uL (0.01-0.08); Eosinophil % 0.7 % (0.7-5.8); Eosinophil (Absolute #) 0.04 x10^3/uL (0.04-0.36); Hematocrit 26.2 % (34.1-44.9); Hemoglobin 8.1 g/dL (11.2-15.7); IMMATURE GRAN # 0.01 x10^3u/L (0.001-0.031); IMMATURE GRAN % 0.2 % (0.001-0.429); Lymphocyte (Absolute #) 0.89 x10^3/uL (1.18-3.74); Lymphocytes % 16.5 % (19.3-51.7); Mean Cell Volume 89.7 fL (79.4-94.8); Mean Corpuscular Hemoglobin 27.7 pg (25.6-32.2); Mean Corpuscular Hgb Concent. 30.9 g/dL (32.2-35.5); Mean Platelet Volume 10.7 fL (9.4-12.3); Monocyte (Absolute #) 0.66 x10^3/uL (0.24-0.86); Monocytes % 12.2 % (4.7-12.5); Neutrophil % 70.4 % (34.0-71.1); Platelet Count 113 x10^3/uL (182-369); Red Blood Count 2.92 x10^6/uL (3.93-5.22); Red Cell Distribution Width 19.8 % (11.7-14.4); White Blood Count 5.4 x10^3/uL (3.98-10.04)
--- NOTE | 2024-10-29 05:26 | PCM.NOTE ---
Date and Time: 10/29/24 0525 Subjective Assessment: HPI: is a 44 year old female with past medical history significant for Crohn's disease status post multiple surgeries the latest surgery back on 09/30 for fistula care, on steroids, seizure disorder, chronic pain syndrome on methadone, depression/anxiety, who came to ER 10/27/24 for concern of shortness of breath and desaturation. As per patient she was desaturating up to 70% at home but in the ER her saturation was around 99 2% she did complain of shortness of breath upon exertion for last 2 days without having any chest pain, cough congestion and fever. She did complain of some nausea and 1 episode of vomiting in ER. She told me she always have diarrhea. In regard to her wound some of t he christen taken out on its own and one of the wound was oozing yellowish discharge. Patient did complain of some increased tenderness and drainage from the wound. In the ER the vital signs were as follows blood show 132/88 she was afebrile with pulse of 66 saturation is 96% on room air as well as blood work of concern it was remarkable for sodium 141 potassium 2.7 chloride 121 bicarb 9 only BUN 14 creatinine 1.81 magnesium was 1.5 procalcitonin 0.172 she was is negative for influenza and COVID troponin 0.024. Chest x-ray unremarkable chest CT without contrast with new subtle bilateral groundglass airspace disease. CT abdomen pelvis demonstrating Status post abdominal surgery with PEG tube in situ. Air and fluid distended bowel loops with synchronous fluid leveling favors postoperative ileus. No free fluid/air. Wound cultures from abdominal wound drainage with gram - ID. Will start Merrem. Spoke with Dr. David (surgeon at ) regarding patient's case. Plan to treat wound based on cultures and she can follow up with him upon discharge. 10/27/24: Patient feeling better today. Dyspnea improved - on RA with spo2 at 95%. Endorses abdominal pain at surgical incision site. She has a MLI with christen - open area midway with copious purulent drainage. Dr. Dante David is her surgeon. Potassium and Co2 levels remain low. Plan for continued replenishment of bicarb and potassium. Patient will need follow up with surgeon regarding wound - if no improvement tomorrow may consider transfer. 10/28/24: Abdominal pain better today. No further dyspnea. Wound cultures from abdominal wound drainage with gram - ID. Will start Merrem. Spoke with Dr. David (surgeon at ) regarding patient's case. Plan to treat wound based on cultures and she can follow up with him upon discharge. Potassium levels low and replenishing per potassium protocol. Co2 levels improved with bicarb drip. Denies fever,cough, sob, cp, BRADSHAW, dizziness, N/V/D. 10/29: Met with patient bedside. Endorses abdominal pain at surgical incision - otherwise no complaints. Potassium WNL today. Acidosis improving. Wound culture pending. Will continue merem for now. - Review of Systems Constitutional: No Symptoms Eyes: No Symptoms Ears, Nose, & Throat: No Symptoms Respiratory: No Symptoms Cardiac: No Symptoms Abdominal/Gastrointestinal: Abdominal Pain, Diarrhea (chronic -crohns) Genitourinary Symptoms: No Symptoms Musculoskeletal: No Symptoms Skin: Other (MLI with christen) Neurological: No Symptoms Psychological: No Symptoms Endocrine: No Symptoms Objective Exam General Appearance: no apparent distress Neurologic Exam: alert, oriented x 3, cooperative Skin Exam: normal color, other (MLI incision with christen- covered with dressing) Wound Assessment: Skin/Wound Assessment Wound/Incision Assessment Start: 10/27/24 04:19 Text: Status: Active Freq: Protocol: Document 10/26/24 22:00 DE (Rec: 10/27/24 04:24 DE [id number]) Wound/Incision Assessment Medial ABD Incision Wound Assessment Admission Wound Type Incision Dressing Status Changed Drainage Description Yellow Drainage Odor Mild Odor General Appearance Christen Intact,Draining, Unapproximated Wound Bed Greatest Portion Yellow (Slough) Wound Bed Lesser Portion Red (Granulation) Surrounding Tissue [place] Primary Dressing Absorbant Pad Secondary Dressing border gauze dressing Comment Pt had fistula repair in [facility] on Sep 30, Most christen are still in place, some had come out while pt was still at home . ABD Incision is gaping open midway down the incision with yellowish/brown drainage. Wound culture was done.Opening is circular in shape depth of opening is 1.5 cm,there is what I will call tunneling of 1cm at 3 O'clock,3+cm (was afraid to push q-tip any further down) at 6 O'clock. Pt had old dressing in place on arrival to floor. This RN removed dressing to assess. That's when open surgical incision was noted. Over opening there was one staple hanging over the wound opening , that was removed by this RN because was afraid it would come the rest of the way out and drop down into the opening . Sterile gauze and border gauze dressing applied over wound opening. G-tube at left upper abd was cleaned around with sterile water and fresh drain sponges were placed around that. Pt tolerated procedure fairly well. Dr Oliva states she was going to [facility] for pt. Wound Photo Photo Taken Yes Eye Exam: PERRL Ears, Nose, Throat Exam: normal ENT inspection Neck Exam: normal inspection Respiratory Exam: normal breath sounds, lungs clear Cardiovascular Exam: regular rate/rhythm, normal heart sounds Gastrointestinal/Abdomen Exam: soft, normal bowel sounds, other (peg tube) Extremity Exam: normal inspection Back Exam: normal inspection Pelvic Exam: deferred Rectal Exam: deferred Objective Data Vital Signs: Vital Signs - 24 hr Temp Pulse Resp BP Pulse Ox 10/29/24 04:00 97.4 F 98 H 16 121/73 91 L 10/29/24 00:13 98.8 F 10/29/24 00:00 99.6 F 109 H 20 126/77 93 L 10/28/24 19:40 97.7 F 99 H 30 H 128/70 91 L 10/28/24 16:00 97.9 F 106 H 16 127/85 97 10/28/24 11:25 98.0 F 106 H 16 129/70 95 10/28/24 07:07 97.8 F 103 H 16 104/60 94 L Pain Assessment - Last Documented Pain Intensity 5 Pain Scale Used 0-10 Pain Scale Intake and Output: Intake & Output 10/26/24 10/27/24 10/28/24 10/29/24 11:59 11:59 11:59 11:59 Intake Total 1947 2600 3530 Output Total 450 125 Balance 1497 2475 3530 Weight 46 kg 48.4 kg Lab Results: Lab Results-Last 24 Hours 10/28/24 10/28/24 10/28/24 Range/Units 05:13 05:13 07:31 WBC 6.0 (3.98-10.04) x10^3/uL RBC 3.10 L (3.93-5.22) x10^6/uL Hgb 8.6 L (11.2-15.7) g/dL Hct 26.9 L (34.1-44.9) % MCV 86.8 (79.4-94.8) fL MCH 27.7 (25.6-32.2) pg MCHC 32.0 L (32.2-35.5) g/dL RDW 19.1 H (11.7-14.4) % Plt Count 142 L (182-369) x10^3/uL MPV 10.8 (9.4-12.3) fL Gran % 70.1 (34.0-71.1) % Immature Gran % (Auto) 0.2 (0.001-0.429) % Nucleat RBC Rel Count 0.0 (0.00-0.2) % Eos # (Auto) 0.02 L (0.04-0.36) x10^3/uL Immature Gran # (Auto) 0.01 (0.001-0.031) x10^3u/L Absolute Lymphs (auto) 1.15 L (1.18-3.74) x10^3/uL Absolute Monos (auto) 0.59 (0.24-0.86) x10^3/uL Absolute Nucleated RBC 0.00 (0.00-0.012) x10^3u/L Lymphocytes % 19.3 (19.3-51.7) % Monocytes % 9.9 (4.7-12.5) % Eosinophils % 0.3 L (0.7-5.8) % Basophils % 0.2 (0.1-1.2) % Absolute Granulocytes 4.19 (1.56-6.13) x10^3/uL Basophils # 0.01 (0.01-0.08) x10^3/uL Sodium 140 (135-145) mmol/L Potassium 2.9 L* 2.7 L* (3.5-5.1) mmol/L Chloride 115 H (98-107) mmol/L Carbon Dioxide 18 L (22-30) mmol/L Anion Gap 10.7 (5-15) MEQ/L BUN 11 (7-17) mg/dL Creatinine 1.26 H (0.52-1.04) mg/dL Estimated GFR 54.7 ML/MIN Glucose 128 H (74-106) mg/dL Calcium 7.5 L (8.4-10.2) mg/dL Magnesium 1.7 (1.6-2.3) mg/dL Total Bilirubin 0.30 (0.2-1.3) mg/dL AST 34 (14-36) U/L ALT 45 H (0-35) U/L Alkaline Phosphatase 112 (38-126) U/L Serum Total Protein 6.0 L (6.3-8.2) g/dL Albumin 2.5 L (3.5-5.0) g/dL 10/28/24 10/28/24 10/28/24 Range/Units 11:55 16:45 19:27 WBC (3.98-10.04) x10^3/uL RBC (3.93-5.22) x10^6/uL Hgb (11.2-15.7) g/dL Hct (34.1-44.9) % MCV (79.4-94.8) fL MCH (25.6-32.2) pg MCHC (32.2-35.5) g/dL RDW (11.7-14.4) % Plt Count (182-369) x10^3/uL MPV (9.4-12.3) fL Gran % (34.0-71.1) % Immature Gran % (Auto) (0.001-0.429) % Nucleat RBC Rel Count (0.00-0.2) % Eos # (Auto) (0.04-0.36) x10^3/uL Immature Gran # (Auto) (0.001-0.031) x10^3u/L Absolute Lymphs (auto) (1.18-3.74) x10^3/uL Absolute Monos (auto) (0.24-0.86) x10^3/uL Absolute Nucleated RBC (0.00-0.012) x10^3u/L Lymphocytes % (19.3-51.7) % Monocytes % (4.7-12.5) % Eosinophils % (0.7-5.8) % Basophils % (0.1-1.2) % Absolute Granulocytes (1.56-6.13) x10^3/uL Basophils # (0.01-0.08) x10^3/uL Sodium 140 (135-145) mmol/L Potassium 2.4 L* 2.8 L* 2.6 L* (3.5-5.1) mmol/L Chloride 112 H (98-107) mmol/L Carbon Dioxide 20 L (22-30) mmol/L Anion Gap 10.8 (5-15) MEQ/L BUN 9 (7-17) mg/dL Creatinine 1.18 H (0.52-1.04) mg/dL Estimated GFR 59.1 ML/MIN Glucose 118 H (74-106) mg/dL Calcium 7.7 L (8.4-10.2) mg/dL Magnesium (1.6-2.3) mg/dL Total Bilirubin 0.20 (0.2-1.3) mg/dL AST 29 (14-36) U/L ALT 41 H (0-35) U/L Alkaline Phosphatase 102 (38-126) U/L Serum Total Protein 6.2 L (6.3-8.2) g/dL Albumin 2.7 L (3.5-5.0) g/dL Radiology Exams: Radiology Procedures Category Date Time Status CHEST 1 VIEW (PORTABLE) Stat Exams 10/27/24 22:54 Completed CHEST 1 VIEW (PORTABLE) Urgent Exams 10/28/24 00:18 Completed PULMONARY PERF VENTILATION [NUCMED] Stat Exams 10/27/24 12:00 Completed Multi-Disciplinary Progress Notes: Multi-Disciplinary Progress Notes 10/28/24 11:00 (created 10/28/24 14:02) Case Management Note by Clarita Ingram S/W PATIENT ABOUT NEED AT DC- SHE CONTINUES TO DENY ANY NEW NEEDS AT TIME OF DC. SHE PLANS TO RETURN HOME TO HER PLF. SHE AGIN DENIED ANY ISSUES GETTING MEDICATIONS OR GETTING TO HIS APTS. Initialized on 10/28/24 14:02 - END OF NOTE Assessment/Plan (1) Hypokalemia Current Visit: Yes Status: Acute Assessment & Plan: -potassium reviewed at 2.8 this morning - 40 meq of IV potassium ordered with repeat labs 2 hours following infusion -tele -monitor renal/lytes 10/28: potassium at 2.4 - will replenish per potassium protocol 10/29: -Potassium reviewed and wnl at 4.0 - will continue on potassium supplementation Code(s): E87.6 - HYPOKALEMIA (2) Metabolic acidosis Current Visit: No Status: Acute Assessment & Plan: -Most likely secondary to chronic diarrhea from chrohns disease -Co2 level reviewed at 11 - will continue bicarb drip 10/28: -Co2 levels reviewed at 18- continue bicarb drip - repeat CMP this afternoon 10/29: -co2 level reviewed at 22- bicarb drip discontinued 10/28 - oral sodium bicarb - continue to monitor daily Code(s): E87.20 - ACIDOSIS, UNSPECIFIED (3) Surgical wound infection Current Visit: Yes Status: Acute Assessment & Plan: -s/p fistula repair by Dr. Dante David. 09/30/24 -MLI with christen - with partial dehiscence and drainage -wound culture pending -continue ceftriaxone - consider transfer if no improvement -Has follow up appt coming up 10/28: -Discussed case with patient's surgeon Dr. David- wound cultures growing gram - ID - will treat with Merem for now- follow culture- patient to follow up OP once discharged 10/29: -Wound cultures pending final - continue Merem for now- follow cultures -Dressing changes as prescribed Code(s): T81.49XA - INFECTION FOLLOWING A PROCEDURE, OTHER SURGICAL SITE, INIT (4) Pulmonary infiltrate on chest x-ray Current Visit: Yes Status: Acute Assessment & Plan: -ceftriaxone/azithromycin -supplemental oxygen with goal spo2 >92% - currently on RA -CT reviewed with bilateral groundglass airspace disease -WBC reviewed and WNL at 8.9 - trend -No fever 10/28: -ABx changed to merem for wound coverage -on RA no dyspnea Code(s): R91.8 - OTHER NONSPECIFIC ABNORMAL FINDING OF LUNG FIELD (5) Hypomagnesemia Current Visit: Yes Status: Acute Assessment & Plan: -replenished on admisssion -Mag level reviewed at 2.6 - resolved Code(s): E83.42 - HYPOMAGNESEMIA (6) Acute on chronic kidney failure Current Visit: Yes Status: Acute Assessment & Plan: -Baseline creatinine 1.3 -Creatinine upon admission 1.81 - reviewed today at 1.53 -IVF -Avoid nephrotoxic agents -monitor renal/lytes daily 10/28: -creat reviewed at 1.26 -continue to monitor 10/29: -creat reviewed at 1.24 Code(s): N17.9 - ACUTE KIDNEY FAILURE, UNSPECIFIED; N18.9 - CHRONIC KIDNEY DISEASE, UNSPECIFIED (7) Seizure disorder Current Visit: Yes Status: Acute Assessment & Plan: -Continue Keppra -Seizure precautions Code(s): G40.909 - EPILEPSY, UNSP, NOT INTRACTABLE, WITHOUT STATUS EPILEPTICUS (8) Chronic pain syndrome Current Visit: Yes Status: Acute Assessment & Plan: -continue methadone Code(s): G89.4 - CHRONIC PAIN SYNDROME (9) Anxiety and depression Current Visit: Yes Status: Acute Assessment & Plan: -Continue home meds including clonazepam Code(s): F41.9 - ANXIETY DISORDER, UNSPECIFIED; F32.A - DEPRESSION, UNSPECIFIED (10) GERD (gastroesophageal reflux disease) Current Visit: Yes Status: Acute Assessment & Plan: -continue protonix Code(s): K21.9 - GASTRO-ESOPHAGEAL REFLUX DISEASE WITHOUT ESOPHAGITIS (11) Shortness of breath Current Visit: Yes Status: Acute Assessment & Plan: -see infiltrate 10/28: -resolved Code(s): R06.02 - SHORTNESS OF BREATH (12) Chronic anemia Current Visit: No Status: Acute Assessment & Plan: -Hgb reviewed and at 8.1- stable - continue to monitor Code(s): D64.9 - ANEMIA, UNSPECIFIED (13) Crohn disease Current Visit: No Status: Chronic Assessment & Plan: -Status post multiple surgeries for abscesses and fistula -patient is on steroid, will resume it here 10/29: -added [facility] Code(s): K50.90 - CROHN'S DISEASE, UNSPECIFIED, WITHOUT COMPLICATIONS Code(s): E87.6 - HYPOKALEMIA (2) Metabolic acidosis Current Visit: No Status: Acute Code(s): E87.20 - ACIDOSIS, UNSPECIFIED (3) Surgical wound infection Current Visit: Yes Status: Acute Code(s): T81.49XA - INFECTION FOLLOWING A PROCEDURE, OTHER SURGICAL SITE, INIT (4) Pulmonary infiltrate on chest x-ray Current Visit: Yes Status: Acute Code(s): R91.8 - OTHER NONSPECIFIC ABNORMAL FINDING OF LUNG FIELD (5) Hypomagnesemia Current Visit: Yes Status: Acute Code(s): E83.42 - HYPOMAGNESEMIA (6) Acute on chronic kidney failure Current Visit: Yes Status: Acute Code(s): N17.9 - ACUTE KIDNEY FAILURE, UNSPECIFIED; N18.9 - CHRONIC KIDNEY DISEASE, UNSPECIFIED (7) Seizure disorder Current Visit: Yes Status: Acute Code(s): G40.909 - EPILEPSY, UNSP, NOT INTRACTABLE, WITHOUT STATUS EPILEPTICUS (8) Chronic pain syndrome Current Visit: Yes Status: Acute Code(s): G89.4 - CHRONIC PAIN SYNDROME (9) Anxiety and depression Current Visit: Yes Status: Acute Code(s): F41.9 - ANXIETY DISORDER, UNSPECIFIED; F32.A - DEPRESSION, UNSPECIFIED (10) GERD (gastroesophageal reflux disease) Current Visit: Yes Status: Acute Code(s): K21.9 - GASTRO-ESOPHAGEAL REFLUX DISEASE WITHOUT ESOPHAGITIS (11) Shortness of breath Current Visit: Yes Status: Acute Code(s): R06.02 - SHORTNESS OF BREATH (12) Chronic anemia Current Visit: No Status: Acute Code(s): D64.9 - ANEMIA, UNSPECIFIED (13) Crohn disease Current Visit: No Status: Chronic Code(s): K50.90 - CROHN'S DISEASE, UNSPECIFIED, WITHOUT COMPLICATIONS
[2024-10-29 05:36] LABS: ALBUMIN 2.3 g/dL (3.5-5.0); ANION GAP 6.9 MEQ/L (5-15); BILIRUBIN,TOTAL 0.2 mg/dL (0.2-1.3); Calcium 7.9 mg/dL (8.4-10.2); Creatinine 1 1.24 mg/dL (0.52-1.04); EST GLOMERULAR FILTRATION RATE 55.7 ML/MIN; Total Protein 5.4 g/dL (6.3-8.2)
[2024-10-29] MEDS: HYDROCORTISONE PO SCH (08:52)
[2024-10-29] MEDS: Klor Con PO SCH (09:01)
--- NOTE | 2024-10-30 05:31 | PCM.DS ---
Discharge Summary Date of Admission: 10/26/24 21:45 Date of Discharge: 10/30/24 Admitting Physician: NORMA VIDES MD Consults: Consults on Case 10/27/24 14:59 Consult Nephrology ROUTINE Primary Care Provider: OSCAR CALVILLO DO Allergies Allergies acetaminophen [From Tylenol] Allergy (Severe, Verified 10/26/24 22:49) Swelling of Tongue and Lips THROAT SWELL AND BREATHING DIFFICULTY hydrocodone [From Lortab] Allergy (Severe, Verified 10/26/24 22:49) Swelling of Tongue and Lips natalizumab [From Tysabri] Allergy (Severe, Verified 10/26/24 22:49) Hives onion Allergy (Severe, Verified 10/26/24 22:49) Swelling of Tongue and Lips raw onion only tomato Allergy (Severe, Verified 10/26/24 22:49) Tightness of Throat latex Allergy (Intermediate, Verified 10/26/24 22:49) Hives morphine Adverse Reaction (Severe, Verified 10/26/24 22:49) makes pt mad/angry/volitle piperacillin [From Zosyn] Adverse Reaction (Intermediate, Verified 10/26/24 22:49) Hives tazobactam [From Zosyn] Adverse Reaction (Intermediate, Verified 10/26/24 22:49) [facility] Hospital Summary - Hospital Course Hospital Course: HPI: is a 44 year old female with past medical history significant for Crohn's disease status post multiple surgeries the latest surgery back on 09/30 for fistula care, on steroids, seizure disorder, chronic pain syndrome on methadone, depression/anxiety, who came to ER 10/27/24 for concern of shortness of breath and desaturation. As per patient she was desaturating up to 70% at home but in the ER her saturation was around 99 2% she did complain of shortness of breath upon exertion for last 2 days without having any chest pain, cough congestion and fever. She did complain of some nausea and 1 episode of vomiting in ER. She told me she always have diarrhea. In regard to her wound some of the christen taken out on its own and one of the wound was oozing yellowish discharge. Patient did complain of some increased tenderness and drainage from the wound. In the ER the vital signs were as follows blood show 132/88 she was afebrile with pulse of 66 saturation is 96% on room air as well as blood work of concern it was remarkable for sodium 141 potassium 2.7 chloride 121 bicarb 9 only BUN 14 creatinine 1.81 magnesium was 1.5 procalcitonin 0.172 she was is negative for influenza and COVID troponin 0.024. Chest x-ray unremarkable chest CT without contrast with new subtle bilateral groundglass airspace disease. CT abdomen pelvis demonstrating Status post abdominal surgery with PEG tube in situ. Air and fluid distended bowel loops with synchronous fluid leveling favors postoperative ileus. No free fluid/air. She has a MLI with christen - open area midway with copious purulent drainage. Wound cultures from abdominal wound drainage with gram - ID. Will start Merrem. Spoke with Dr. David (surgeon at ) regarding patient's case. Plan to treat wound based on cultures and she can follow up with him upon discharge. Wound culture with ecoli and sensitivity to merem and levaquin. Will discharge with levaquin and close follow up next week with her surgeon. Recheck labs next week (Thursday/) with PCP. Discharge Note New Medications: sodium bicarb/potassium/levaquin Follow Up: PCP/nephrology/Surgeon Outpatient testing to order: Latest Assessment & Plan (1) Hypokalemia Current Visit: Yes Status: Acute Assessment & Plan: -potassium reviewed at 2.8 this morning - 40 meq of IV potassium ordered with repeat labs 2 hours following infusion -tele -monitor renal/lytes 10/28: potassium at 2.4 - will replenish per potassium protocol 10/29: -Potassium reviewed and wnl at 4.0 - will continue on potassium supplementation 10/30: -continue home supplementation - rech Code(s): E87.6 - HYPOKALEMIA (2) Metabolic acidosis Current Visit: No Status: Acute Assessment & Plan: -Most likely secondary to chronic diarrhea from chrohns disease -Co2 level reviewed at 11 - will continue bicarb drip 10/28: -Co2 levels reviewed at 18- continue bicarb drip - repeat CMP this afternoon 10/29: -co2 level reviewed at 22- bicarb drip discontinued 10/28 - oral sodium bicarb - continue to monitor daily 10/30: -chronic - discharge with sodium bicarb- recheck labs Thursday/ with PCP/Nephrology Code(s): E87.20 - ACIDOSIS, UNSPECIFIED (3) Surgical wound infection Current Visit: Yes Status: Acute Assessment & Plan: -s/p fistula repair by Dr. Dante David. 09/30/24 -MLI with christen - with partial dehiscence and drainage -wound culture pending -continue ceftriaxone - consider transfer if no improvement -Has follow up appt coming up 10/28: -Discussed case with patient's surgeon Dr. David- wound cultures growing gram - ID - will treat with Merem for now- follow culture- patient to follow up OP once discharged 10/29: -Wound cultures pending final - continue Merem for now- follow cultures -Dressing changes as prescribed 10/30: -Wound culture with Ecoli- sensitive to Levaquin - will discharge home on lev aquin - follow up closely with Surgeon- call office Thursday Code(s): T81.49XA - INFECTION FOLLOWING A PROCEDURE, OTHER SURGICAL SITE, INIT (4) Pulmonary infiltrate on chest x-ray Current Visit: Yes Status: Acute Assessment & Plan: -ceftriaxone/azithromycin -supplemental oxygen with goal spo2 >92% - currently on RA -CT reviewed with bilateral groundglass airspace disease -WBC reviewed and WNL at 8.9 - trend -No fever 10/28: -ABx changed to merem for wound coverage -on RA no dyspnea Code(s): R91.8 - OTHER NONSPECIFIC ABNORMAL FINDING OF LUNG FIELD (5) Hypomagnesemia Current Visit: Yes Status: Acute Assessment & Plan: -replenished on admisssion -Mag level reviewed at 2.6 - resolved Code(s): E83.42 - HYPOMAGNESEMIA (6) Acute on chronic kidney failure Current Visit: Yes Status: Acute Assessment & Plan: -Baseline creatinine 1.3 -Creatinine upon admission 1.81 - reviewed today at 1.53 -IVF -Avoid nephrotoxic agents -monitor renal/lytes daily 10/28: -creat reviewed at 1.26 -continue to monitor 10/29: -creat reviewed at 1.24 10/30: -creat reviewed at 1.10 Code(s): N17.9 - ACUTE KIDNEY FAILURE, UNSPECIFIED; N18.9 - CHRONIC KIDNEY DISEASE, UNSPECIFIED (7) Seizure disorder Current Visit: Yes Status: Acute Assessment & Plan: -Continue Keppra -Seizure precautions Code(s): G40.909 - EPILEPSY, UNSP, NOT INTRACTABLE, WITHOUT STATUS EPILEPTICUS (8) Chronic pain syndrome Current Visit: Yes Status: Acute Assessment & Plan: -continue methadone Code(s): G89.4 - CHRONIC PAIN SYNDROME (9) Anxiety and depression Current Visit: Yes Status: Acute Assessment & Plan: -Continue home meds including clonazepam Code(s): F41.9 - ANXIETY DISORDER, UNSPECIFIED; F32.A - DEPRESSION, UNSPECIFIED (10) GERD (gastroesophageal reflux disease) Current Visit: Yes Status: Acute Assessment & Plan: -continue protonix Code(s): K21.9 - GASTRO-ESOPHAGEAL REFLUX DISEASE WITHOUT ESOPHAGITIS (11) Shortness of breath Current Visit: Yes Status: Acute Assessment & Plan: -see infiltrate 10/28: -resolved Code(s): R06.02 - SHORTNESS OF BREATH (12) Chronic anemia Current Visit: No Status: Acute Assessment & Plan: -Hgb reviewed and at 8.1- stable - continue to monitor Code(s): D64.9 - ANEMIA, UNSPECIFIED (13) Crohn disease Current Visit: No Status: Chronic Assessment & Plan: -Status post multiple surgeries for abscesses and fistula -patient is on steroid, will resume it here 10/29: -idris jiang I spent 35 minutes [id number] with the patient on the day of discharge performing discharge exam, discussing hospital stay and discharge instructions with patient and caregivers, preparation of discharge records, prescriptions & referral forms and addressing any questions/concerns the patient had as documented above. 1 - Vitals & Intake/Output Vital Signs: Vital Signs Temperature 97.5 F 10/30/24 04:00 Pulse Rate 116 H 10/30/24 04:00 Respiratory Rate 26 H 10/30/24 04:00 Blood Pressure 133/77 10/30/24 04:00 O2 Sat by Pulse Oximetry 95 10/30/24 04:00 Intake & Output: Intake & Output 10/27/24 10/28/24 10/29/24 10/30/24 11:59 11:59 11:59 11:59 Intake Total 1947 2600 4180 1808 Output Total 450 125 500 Balance 1497 2475 4180 1308 Weight 46 kg 48.4 kg 48.4 kg - Lab Result Diagrams: 10/30/24 05:00 10/30/24 05:00 Lab Results-Last 24 Hrs: Lab Results-Last 24 Hours 10/29/24 10/29/24 Range/Units 05:15 05:15 WBC 5.4 (3.98-10.04) x10^3/uL RBC 2.92 L (3.93-5.22) x10^6/uL Hgb 8.1 L (11.2-15.7) g/dL Hct 26.2 L (34.1-44.9) % MCV 89.7 (79.4-94.8) fL MCH 27.7 (25.6-32.2) pg MCHC 30.9 L (32.2-35.5) g/dL RDW 19.8 H (11.7-14.4) % Plt Count 113 L (182-369) x10^3/uL MPV 10.7 (9.4-12.3) fL Gran % 70.4 (34.0-71.1) % Immature Gran % (Auto) 0.2 (0.001-0.429) % Nucleat RBC Rel Count 0.0 (0.00-0.2) % Eos # (Auto) 0.04 (0.04-0.36) x10^3/uL Immature Gran # (Auto) 0.01 (0.001-0.031) x10^3u/L Absolute Lymphs (auto) 0.89 L (1.18-3.74) x10^3/uL Absolute Monos (auto) 0.66 (0.24-0.86) x10^3/uL Absolute Nucleated RBC 0.00 (0.00-0.012) x10^3u/L Lymphocytes % 16.5 L (19.3-51.7) % Monocytes % 12.2 (4.7-12.5) % Eosinophils % 0.7 (0.7-5.8) % Basophils % 0.0 L (0.1-1.2) % Absolute Granulocytes 3.80 (1.56-6.13) x10^3/uL Basophils # 0 L (0.01-0.08) x10^3/uL Sodium 142 (135-145) mmol/L Potassium 4.0 D (3.5-5.1) mmol/L Chloride 117 H (98-107) mmol/L Carbon Dioxide 22 (22-30) mmol/L Anion Gap 6.9 (5-15) MEQ/L BUN 10 (7-17) mg/dL Creatinine 1.24 H (0.52-1.04) mg/dL Estimated GFR 55.7 ML/MIN Glucose 99 (74-106) mg/dL Calcium 7.9 L (8.4-10.2) mg/dL Total Bilirubin 0.20 (0.2-1.3) mg/dL AST 23 (14-36) U/L ALT 32 (0-35) U/L Alkaline Phosphatase 88 (38-126) U/L Serum Total Protein 5.4 L (6.3-8.2) g/dL Albumin 2.3 L (3.5-5.0) g/dL Micro Results-Entire Visit: Microbiology 10/26/24 00:20 Wound Culture - Preliminary Abdomen - Right Upper Quadrant Escherichia Coli - Procedures and Test Procedures and Tests throughout Hospitalization: Therapy Orders & Screens 10/26/24 19:02 Respiratory Therapy Assessment DAILY Comment: 10/26/24 21:53 Respiratory Therapy Consult ONCE Comment: Reason For Exam: Discharge Exam General Appearance: no apparent distress Neurologic Exam: alert, oriented x 3, cooperative Eye Exam: PERRL Ears, Nose, Throat Exam: normal ENT inspection Neck Exam: normal inspection Respiratory Exam: normal breath sounds, lungs clear Cardiovascular Exam: regular rate/rhythm, normal heart sounds Gastrointestinal/Abdomen Exam: soft, normal bowel sounds, other (MLI with christen - open area with drainage-covered) Pelvic Exam: deferred Rectal Exam: deferred Back Exam: normal inspection Extremity Exam: normal inspection Wound Assessment: Skin/Wound Assessment Wound/Incision Assessment Start: 10/27/24 04:19 Text: Status: Active Freq: Protocol: Document 10/29/24 18:00 AR (Rec: 10/29/24 19:29 AR [id number]) Wound/Incision Assessment Medial ABD Incision Wound Assessment Shift Assessment Dressing Status Changed Drainage Amount Moderate Drainage Description Yellow General Appearance Marlow Intact Primary Dressing Absorbant Pad Final Diagnosis/Problem List - Final Discharge Diagnosis/Problem (1) Hypokalemia Current Visit: Yes Status: Resolved Code(s): E87.6 - HYPOKALEMIA (2) Metabolic acidosis Current Visit: No Status: Chronic Code(s): E87.20 - ACIDOSIS, UNSPECIFIED (3) Surgical wound infection Current Visit: Yes Status: Chronic Code(s): T81.49XA - INFECTION FOLLOWING A PROCEDURE, OTHER SURGICAL SITE, INIT (4) Pulmonary infiltrate on chest x-ray Current Visit: Yes Status: Acute Code(s): R91.8 - OTHER NONSPECIFIC ABNORMAL FINDING OF LUNG FIELD (5) Hypomagnesemia Current Visit: Yes Status: Resolved Code(s): E83.42 - HYPOMAGNESEMIA (6) Acute on chronic kidney failure Current Visit: Yes Status: Resolved Code(s): N17.9 - ACUTE KIDNEY FAILURE, UNSPECIFIED; N18.9 - CHRONIC KIDNEY DISEASE, UNSPECIFIED (7) Seizure disorder Current Visit: Yes Status: Acute Code(s): G40.909 - EPILEPSY, UNSP, NOT INTRACTABLE, WITHOUT STATUS EPILEPTICUS (8) Chronic pain syndrome Current Visit: Yes Status: Chronic Code(s): G89.4 - CHRONIC PAIN SYNDROME (9) Anxiety and depression Current Visit: Yes Status: Chronic Code(s): F41.9 - ANXIETY DISORDER, UNSPECIFIED; F32.A - DEPRESSION, UNSPECIFIED (10) GERD (gastroesophageal reflux disease) Current Visit: Yes Status: Acute Code(s): K21.9 - GASTRO-ESOPHAGEAL REFLUX DISEASE WITHOUT ESOPHAGITIS (11) Shortness of breath Current Visit: Yes Status: Resolved Code(s): R06.02 - SHORTNESS OF BREATH (12) Chronic anemia Current Visit: No Status: Chronic Code(s): D64.9 - ANEMIA, UNSPECIFIED (13) Crohn disease Current Visit: No Status: Chronic Code(s): K50.90 - CROHN'S DISEASE, UNSPECIFIED, WITHOUT COMPLICATIONS - Discharge Discharge Date: 10/30/24 Disposition: Home, Self-Care Condition: Stable Prescriptions: New levoFLOXacin [Levofloxacin] 500 mg PO DAILY 10 Days #10 tablet Potassium Chloride 20 meq PO BID 7 Days #14 tablet Sodium Bicarbonate 650 mg PO BID 7 Days #14 tablet Continue Ondansetron ODT 4 MG [Zofran Odt 4 mg] 4 mg PO Q6H PRN PRN PRN Reason: Nausea hydrOXYzine HCL [Hydroxyzine HCl] 10 mg PO Q6HPRN PRN PRN Reason: Itching clonazePAM [Clonazepam] 0.25 mg PO BID Tamsulosin HCl 0.4 mg [Flomax 0.4 MG] 1 cap PO DAILY Pantoprazole 20 mg [Protonix 20MG Tablet] 1 tab PO DAILY Multivitamin 1 tab PO DAILY Midodrine HCl 5 mg PO TID Methadone HCl 1 tab PO BID Magnesium Oxide 400 mg [Mag-Ox 400] 400 mg PO BID Lidocaine 1 each TP DAILY Levetiracetam [Keppra] 500 mg PO BID Hydrocortisone 15 mg PO DAILY Hydrocortisone 10 mg PO HS Cholecalciferol (Vitamin D3) [Vitamin D3] 50 mcg PO DAILY Atorvastatin Calcium 40 mg PO HS Additional Instructions: Follow up with nephrology with labs next week Follow up with: OSCAR CALVILLO DO [Primary Care Provider] - 11/08/24 11:00 am HALEIGH DAVID MD [NON-STAFF PHY W/O PRIVILEGES] - SHMUEL HALE NP [NON-STAFF PHY W/O PRIVILEGES] - 11/01/24 3:30 pm ( )
[2024-10-30 05:36] LABS: Absolute Neutrophil Ct (ANC) 5.31 x10^3/uL (1.56-6.13); Basophil (Absolute #) 0 x10^3/uL (0.01-0.08); Eosinophil % 0.7 % (0.7-5.8); Eosinophil (Absolute #) 0.05 x10^3/uL (0.04-0.36); Hematocrit 27.9 % (34.1-44.9); Hemoglobin 8.2 g/dL (11.2-15.7); IMMATURE GRAN # 0.03 x10^3u/L (0.001-0.031); IMMATURE GRAN % 0.4 % (0.001-0.429); Lymphocyte (Absolute #) 1.06 x10^3/uL (1.18-3.74); Lymphocytes % 14.8 % (19.3-51.7); Mean Cell Volume 92.4 fL (79.4-94.8); Mean Corpuscular Hemoglobin 27.2 pg (25.6-32.2); Mean Corpuscular Hgb Concent. 29.4 g/dL (32.2-35.5); Mean Platelet Volume 11.1 fL (9.4-12.3); Monocyte (Absolute #) 0.73 x10^3/uL (0.24-0.86); Monocytes % 10.2 % (4.7-12.5); Neutrophil % 73.9 % (34.0-71.1); Platelet Count 112 x10^3/uL (182-369); Red Blood Count 3.02 x10^6/uL (3.93-5.22); Red Cell Distribution Width 19.9 % (11.7-14.4); White Blood Count 7.2 x10^3/uL (3.98-10.04)
[2024-10-30 06:10] LABS: ALBUMIN 2.3 g/dL (3.5-5.0); ANION GAP 12.7 MEQ/L (5-15); BILIRUBIN,TOTAL 0.3 mg/dL (0.2-1.3); Calcium 7.8 mg/dL (8.4-10.2); Creatinine 1 1.1 mg/dL (0.52-1.04); EST GLOMERULAR FILTRATION RATE 64.3 ML/MIN; Potassium 3.7 mmol/L (3.5-5.1); Total Protein 5.5 g/dL (6.3-8.2)
[2024-10-30] MEDS ORDERED: SODIUM BICARBONATE PO SCH (07:20)
[2024-10-30] MEDS: SODIUM BICARBONATE PO SCH (08:08)
[2024-10-30] MEDS: Levofloxacin 500 MG Tablet PO SCH (09:55)
[2024-10-30 11:39] VITALS: BP 116/75; PULSE 101; RESP 18; TEMP 96.7; O2SAT 95
[2024-10-30 12:22] LABS: ANION GAP 9.8 MEQ/L (5-15); Calcium 7.7 mg/dL (8.4-10.2); Creatinine 1 1.08 mg/dL (0.52-1.04); EST GLOMERULAR FILTRATION RATE 65.8 ML/MIN
== END 2024-10-30 14:30 | disposition home or self-care (01) ==
LOC: ED 16:03 → MED SURG 21:45
PROVIDERS: ADMIT Internal Medicine; ATTEND Internal Medicine
DX: E87.6 Hypokalemia (principal); E87.20 Acidosis, unspecified; T81.49XA Infection following a procedure, other surgical site, initial encounter; B96.20 Unspecified Escherichia coli [E. coli] as the cause of diseases classified elsewhere; R91.8 Other nonspecific abnormal finding of lung field; E83.42 Hypomagnesemia; N17.9 Acute kidney failure, unspecified; N18.31 Chronic kidney disease, stage 3a; G40.909 Epilepsy, unspecified, not intractable, without status epilepticus; G89.4 Chronic pain syndrome; F41.9 Anxiety disorder, unspecified; F32.A Depression, unspecified; K21.9 Gastro-esophageal reflux disease without esophagitis; R06.02 Shortness of breath; D64.9 Anemia, unspecified; K50.90 Crohn's disease, unspecified, without complications; Z79.899 Other long term (current) drug therapy; Z85.42 Personal history of malignant neoplasm of other parts of uterus
CPT/HCPCS: 0241U; 36415; 36556; 36600; 71045; 71250; 74176; 78582; 80048; 80053; 82375; 82803; 83605; 83735; 84132; 84145; 84484; 84703; 85025; 87070; 87077; 87186; 93005; 93268; 94640; 96374; 96375; 96376; 99285; A9540; A9567; G0378; Q3014; J0456; J0696; J1171; J2060; J3475; J3480; A9270-GY

== ENCOUNTER 2025-01-02 08:40 | Day surgery (SDC) | payer MEDICARE ==
--- NOTE | 2025-01-02 08:11 | HP ---
HISTORY AND PHYSICAL HISTORY OF PRESENT ILLNESS: Patient with poor IV access, needs IV access for long-term access with poor peripheral access with multiple ports and port infection in the past. Has a history of being referred. PAST MEDICAL HISTORY: History of vomiting in the past; however, vomiting is doing better on office visit per the record, endoscopy, has history of Crohn's, follows up with Dr. Bonilla in [place], had surgery there intestines in September 2024. She has history of Crohn's, depression, anxiety, has history of pancreatitis and bipolar in the past. HOME MEDICATIONS: Potassium chloride, magnesium, midodrine, iron, vitamin E, zinc acetate, vitamin D3, vitamin B12. ALLERGIES: Latex, morphine, Blakely, onions, piperacillin, tazobactam, tomatoes, Tylenol, Tysabri. PAST SURGICAL HISTORY: Ports placed in the past, hysterectomy, had colon resection in the past, she has had some sort of bowel resection and multiple surgeries in the past, had cholecystectomy in the past, and had cervical spinal fusion in the past. SOCIAL HISTORY: Former smoker. No alcohol abuse. Does use marijuana. FAMILY HISTORY: Diabetes, hypertension, colon cancer. REVIEW OF SYSTEMS: Twelve systems reviewed. Negative or noncontributory other than preadmission assessment. PHYSICAL EXAMINATION: GENERAL: No acute distress. VITAL SIGNS: Height 5 feet 3 inches, 144 pounds, BMI 25.51. HEENT: Sclerae nonicteric. Extraocular movements are intact NECK: No JVD. CARDIOVASCULAR: Regular rate and rhythm. RESPIRATORY: Equal excursion, nonlabored breathing. PSYCHIATRIC: Appropriate mood and affect. IMPRESSION: Poor peripheral access, needs long-term access. She has had ports and port infection in the past. She may be difficult access as she needs long-term access and wanted to proceed. Will be under general anesthetic. Risk of bleeding, infection; risk of pneumothorax, thrombosis, hematoma, seroma, aches, pains, catheter or port stricture or failure or infection possibly requiring removal or other procedures. She understands she may be scarred in and may not be able to get in the vein and this may need to be deferred to her physicians at or Interventional Radiology. On a different date, plan on upper endoscopy. Risk of bleeding, infection, bowel injury possibly requiring additional procedure, risk of incomplete exam possibly requiring barium swallow, risk of missed or non-diagnosis possibly needing further referrals. Will schedule outpatient under general Port-A-Cath placement. On different date plan outpatient under MAC anesthesia EGD, possible biopsy. On date of the port placement, I will replace the port. Then, we will go ahead and proceed with upper endoscopy.
[~2025-01-02 08:40] MED LIST changes: +Lactated Ringers 0 ML IV ONE; -Sensorcaine 0.25% 10 ML ONE
[2025-01-02 09:07] VITALS: RESP 18
[2025-01-02] MEDS ORDERED: Levofloxacin 500MG/100ML D5W 500 MG/100 ML BAG IV ONE (09:19)
[2025-01-02] MEDS ORDERED: Lactated Ringers 1,000 ML IV ONE (09:19)
[2025-01-02] MEDS: Lactated Ringers 1,000 ML IV SCH (09:24)
[2025-01-02] MEDS: Levofloxacin 500MG/100ML D5W 500 MG/100 ML BAG IV SCH (09:24)
[2025-01-02] MEDS ORDERED: propofoL IV ONE (10:19)
[2025-01-02] MEDS ORDERED: Xylocaine-Mpf 2% 5 Ml Vial ONE (10:20)
[2025-01-02] MEDS ORDERED: Sensorcaine 0.25% 10 ML ONE (10:46)
[2025-01-02] MEDS ORDERED: Zofran 4 MG/2 ML VIAL ONE (10:46)
[2025-01-02] MEDS ORDERED: ROCURONIUM BROMIDE IV ONE (10:46)
[2025-01-02] MEDS ORDERED: BRIDION 200MG/2ML IV ONE (10:46)
[2025-01-02] MEDS ORDERED: dexAMETHasone sodium phosphate ONE (10:46)
[2025-01-02] MEDS ORDERED: SUBLIMAZE 100 MCG/2 ML ONE ×2 (10:48→11:59)
[2025-01-02] MEDS ORDERED: PHENYLEPHRINE HCL ONE (11:22)
--- NOTE | 2025-01-02 11:50 | XRAY ---
Indication: Port placement. Intraoperative fluoroscopy provided for 2 seconds. 5 digital spot images submitted for interpretation ultimately demonstrates insertion left Port-A-Cath with tip projecting over SVC. Correlate with intraoperative findings/report.
[2025-01-02] MEDS ORDERED: TORAdol 30 mg Injection ONE (12:56)
--- NOTE | 2025-01-02 13:15 | XRAY ---
Indication: Port placement. Comparison: October 28, 2024 Portable chest demonstrates new left subclavian Port-A-Cath with tip projecting over right atrium without pneumothorax. Lungs now underinflated crowding lung bases. Heart borderline enlarged. Bony thorax intact.
[2025-01-02 13:54] VITALS: O2SAT 94
[2025-01-02 14:03] VITALS: BP 103/56; PULSE 94; TEMP 97.3
--- NOTE | 2025-01-04 09:30 | OP ---
SURGERY DATE/TIME: 01/02/2025 [id number] PREOPERATIVE DIAGNOSES: 1) History of Crohn disease. 2) History of prior bowel resection. 3) History of poor peripheral access. 4) Need for intravenous access for long-term intravenous treatments. POSTOPERATIVE DIAGNOSES: 1) History of Crohn disease. 2) History of prior bowel resection. 3) History of poor peripheral access. 4) Need for intravenous access for long-term intravenous treatments. PROCEDURE: 1) Tunneled Port-A-Cath placement left subclavian vein. 2) C-arm fluoroscopy interpretation and management. SURGEON: Wilfredo Garay MD CABLE TELEVISION PROGRAM DIRECTOR: Coni Marshall MS3 ESTIMATED BLOOD LOSS: Minimal. INDICATIONS: Consent was obtained. DESCRIPTION OF PROCEDURE AND FINDINGS: The patient was taken to the operating room. General anesthesia was induced. She had multiple catheters removed for infection in the past. I was concerned whether she would be a difficult access. Prepped and draped in usual sterile fashion. Trendelenburg position. She seemed to have fewer scars in the left chest and it was elected to go on this side. Lidocaine 1% local was infiltrated and 18-gauge needle was inserted on the first pass. Good dark, nonpulsatile venous return. Guidewire was passed without difficulty. Confirmed SVC by C-arm fluoroscopy. Again, this was all done on a single pass with good return. At this point, 1% lidocaine was infiltrated around the port pocket and tunnel tract area. A transverse incision made. Inferior subcutaneous port pocket was created with cautery. Port secured with Prolene sutures x2. The catheter was tunneled down from the cannulation stab wound down to the port pocket area and dilated with breakaway sheath. Easily passed over the guidewire and the catheter fell down the breakaway sheath. The tip was in the distal SVC on C-arm fluoroscopy. The catheter was cut to appropriate length and snapped on the port with the hub. Port aspirated, dark nonpulsatile venous return with ease and flushed with heparinized saline. Small bit of the fat pad to make it easier to access the port had been removed as there was redundant fat pad in the area. Good hemostasis was noted. The wound was irrigated out. Good hemostasis noted. Subcutaneous closed with 3-0 Vicryl. Skin closed with 4-0 Vicryl. Cannula skin closed with 4-0 Vicryl. Steri-Strips and sterile dressing applied. The patient tolerated the procedure well. There were no immediate complications. The patient complained of a little bit of incisional pain later. Just for completeness, a chest x-ray was ordered which showed no pneumothorax. No acute issues. Catheter tip in location. It was felt no further x-rays were necessary. There were no immediate complications. She was given a prescription for tramadol. As she could not take hydrocodone and she wants something a little stronger, so a prescription for Toradol was written. I asked the staff, says she had no allergy to that. If she has further pain control issues, she will need to follow up with her primary or ornamental painter.
== END 2025-01-02 14:15 | disposition home or self-care (01) ==
LOC: SDC 08:40
PROVIDERS: ATTEND Surgery
DX: Z45.2 Encounter for adjustment and management of vascular access device (principal); Z87.19 Personal history of other diseases of the digestive system
CPT/HCPCS: 36561; 71045; 77001; C1788; J1100; J1642; J1885; J1956; J2371; J2405; J2704; J3010

== ENCOUNTER 2025-01-09 09:21 | Day surgery (SDC) | payer MEDICARE ==
--- NOTE | 2025-01-09 08:00 | HP ---
HISTORY AND PHYSICAL HISTORY OF PRESENT ILLNESS: The patient with chronic vomiting issues intermittently. The patient has been followed by a Crohn's physician, Dr. Wyman, in [place]. She had a bowel resection back in September 2024 with bowel surgery. She was referred for evaluation with history of some vomiting and need for evaluation for gastritis, peptic ulcer disease, or other etiology. She needs a port placement for peripheral access, need for frequent IV access. She is in need of upper endoscopy. PAST MEDICAL HISTORY: History of ulcers, history of bipolar, history of Crohn's, history of anxiety, history of depression. PAST SURGICAL HISTORY: Port placements and removals in the past. She had a recent replacement 1 or 2 weeks ago. She has had multiple intestine surgeries per the patient regarding the Crohn's. She had a hysterectomy in the past. She had a cholecystectomy in the past. She had a spinal fusion in the past. HOME MEDICATIONS: Potassium chloride, magnesium, midodrine, iron, vitamin A, zinc acetate, vitamin D3, vitamin B12. ALLERGIES: LATEX, MORPHINE, NORCO, ONIONS, PIPERACILLIN/TAZOBACTAM, TOMATOES, TYLENOL, AND TYSABRI. FAMILY HISTORY: Diabetes, hypertension, and colon cancer. SOCIAL HISTORY: Former smoker. Denies alcohol abuse. Does use some marijuana at times. REVIEW OF SYSTEMS: Twelve systems reviewed. No chest pain or palpitations. Somewhat a poor historian. She did have a recent port placement, is in need of upper endoscopy to evaluate for gastritis, peptic ulcer disease, or other etiology. PHYSICAL EXAMINATION: GENERAL: Height 5 feet 3 inches, BMI 25.51. No acute distress. HEENT: Sclerae nonicteric. NECK: No JVD. CHEST: Equal excursion, nonlabored breathing. CARDIOVASCULAR: Regular rate and rhythm. ABDOMEN: Soft. EXTREMITIES: No significant edema. NEUROLOGIC: Alert and oriented. PSYCHIATRIC: Appropriate mood and affect. IMPRESSION: History of vomiting. Had some ulcers in the past. She needs an upper endoscopy to evaluate for gastritis, peptic ulcer disease, or other etiology. Risks explained in detail including but not limited to bleeding; infection; risk of bowel injury or perforation; risk of missed possibility of needing an open procedure; risk of incomplete exam possibly requiring barium swallow. She understands and agrees with the planned procedure. We will proceed with outpatient EGD and possible biopsy. Otherwise, continue medications for her Crohn's, bipolar, and anxiety.
[2025-01-09] MEDS: Lactated Ringers 1,000 ML IV SCH (09:27)
[2025-01-09 09:57] VITALS: RESP 16
[2025-01-09] MEDS ORDERED: propofoL IV ONE (11:28)
[2025-01-09] MEDS ORDERED: PHENYLEPHRINE HCL ONE (11:38)
[2025-01-09 12:13] VITALS: O2SAT 100
[2025-01-09 12:30] VITALS: BP 91/63; PULSE 81; TEMP 98.3
--- NOTE | 2025-01-10 10:32 | OP ---
SURGERY DATE/TIME: 01/09/2025 [id number] PREOPERATIVE DIAGNOSES: 1) History of some vomiting. 2) History of ulcers in the past. 3) History of Crohn disease. 4) Need for upper endoscopy. 5) History of following up with Dr. Wyman in the [place] area for her Crohn disease. POSTOPERATIVE DIAGNOSES: 1) Some mild gastritis. 2) Short segment esophagitis, distal esophagus. 3) No evidence of any current ulcers. 4) Small opening in the stomach whether diverticulum or accessory communication with the pancreas or old ulcer site, but no current active ulcers. PROCEDURES: 1) Esophagogastroduodenoscopy with cold biopsy of the small bowel to evaluate for histology. 2) Cold biopsy of the antrum and proximal stomach to evaluate for gastritis or gastropathy. 3) Cold biopsy of the distal esophagus. SURGEON: Wilfredo Garay MD. ANESTHESIA: MAC. [employer] BOSS: HASMUKH Montero ESTIMATED BLOOD LOSS: Minimal. INDICATION: Consent was obtained. DESCRIPTION OF PROCEDURE AND FINDINGS: Patient was taken to the endoscopy room. MAC anesthesia induced. After official time-out, no disagreement with planned procedure. Bite block was positioned. Videogastroscope easily passed down the esophagus through the patent pylorus to the junction of the third and fourth portions of the duodenum. On withdrawal of the scope, there was a little bit of flattening of the surface of the duodenum. It was elected to do a biopsy for histology to evaluate for celiac or other etiology given her history of vomiting. Cold biopsy was taken. Good hemostasis was noted. Otherwise, the scope was then carefully pulled back into the stomach. There was some old petechial hemorrhage in the antrum with slight erythema. Cold biopsy was taken in there. As well as on retroflex, there is a little bit more small amount of blood and gastritis in parts of the stomach. Cold biopsy was taken there to evaluate for histology and H pylori. Otherwise, no signs of any significant hiatal hernia. The scope was straightened. In the proximal antrum, upper gastric body, there was a little divot. Whether this is a communication to the pancreas or diverticulum or an old ulcer site, it was small. It did not appear to be an active ulcer. Otherwise, the scope was pulled back in distal esophagus. GE junction was about 35 cm. There is a short segment of distal inflammation. Cold biopsy obtained. Good hemostasis noted. The remainder of the esophagus grossly unremarkable. A little tiny area that was salmon pink in the proximal esophagus. Scope was withdrawn. Patient tolerated procedure well. There were no immediate complications. Findings discussed with her mother in the waiting area.
== END 2025-01-09 12:39 | disposition home or self-care (01) ==
LOC: SDC 09:21
PROVIDERS: ATTEND Surgery
DX: Z87.19 Personal history of other diseases of the digestive system (principal); K29.70 Gastritis, unspecified, without bleeding; K20.90 Esophagitis, unspecified without bleeding
CPT/HCPCS: J1642; J2371; J2704

== ENCOUNTER 2025-09-25 14:49 | Emergency (ER) | payer MEDICARE ==
[2025-09-25 15:02] VITALS: TEMP 97.3
--- NOTE | 2025-09-25 15:27 | ERPHSYRPT ---
- History of Present Illness Time Seen by Provider: 09/25/25 14:58 Source: patient, family, other Exam Limitations: no limitations Patient Subjective Stated Complaint: patient states "I think I have pneumonia" Patient states she has been sick since thanksgiving Triage Nursing Assessment: patient alert and oriented x 4, skin pwd, lungs clear throughout all jeong, vitals wnl, denies chest discomfort/sob, afebrile Physician History: Patient is here with cough, cold, congestion. Patient states that she has had generalized malaise, not feeling well since September 14. Patient was sent from Dr. Perry Calvillo clinic. Patient does have several chronic medical problems. Patient was recently admitted to [facility] for a head bleed per Dr. Calvillo and patient. Patient is most concerned about having pneumonia today. She states that she has some very mild shortness of breath. Patient is taking PO well. Same number of urinations and defecations. The patient has no signs of altered mental status, nuchal rigidity, signs of meningitis. The patient is up-to-date on all vaccinations. No other recent falls, trauma. Patient does complain of a frontal headache. States that this is typical of the migraines that she gets due to not feeling well. Allergies/Adverse Reactions: acetaminophen [From Tylenol] Allergy (Severe, Verified 09/25/25 14:57) Swelling of Tongue and Lips THROAT SWELL AND BREATHING DIFFICULTY hydrocodone [From Lortab] Allergy (Severe, Verified 09/25/25 14:57) Swelling of Tongue and Lips natalizumab [From Tysabri] Allergy (Severe, Verified 09/25/25 14:57) Hives onion Allergy (Severe, Verified 09/25/25 14:57) Swelling of Tongue and Lips raw onion only tomato Allergy (Severe, Verified 09/25/25 14:57) Tightness of Throat latex Allergy (Intermediate, Verified 09/25/25 14:57) Hives morphine Adverse Reaction (Severe, Verified 09/25/25 14:57) makes pt mad/angry/volitle piperacillin [From Zosyn] Adverse Reaction (Intermediate, Verified 09/25/25 14:57) Hives tazobactam [From Zosyn] Adverse Reaction (Intermediate, Verified 09/25/25 14:57) Hives Home Medications: Atorvastatin Calcium 40 mg PO HS 10/26/24 [History] Cholecalciferol (Vitamin D3) [Vitamin D3] 50 mcg PO DAILY 10/26/24 [History] Hydrocortisone 10 mg PO HS 10/26/24 [History] Levetiracetam [Keppra] 500 mg PO BID 10/26/24 [History] Magnesium Oxide 400 mg [Mag-Ox 400] 400 mg PO BID 10/26/24 [History] Midodrine HCl 15 mg PO TID 10/26/24 [History] Multivitamin 1 tab PO DAILY 10/26/24 [History] Ondansetron ODT 4 MG [Zofran Odt 4 mg] 4 mg PO Q6H PRN PRN 10/26/24 [History] Pantoprazole 20 mg [Protonix 20MG Tablet] 1 tab PO DAILY 10/26/24 [History] Tamsulosin HCl 0.4 mg [Flomax 0.4 MG] 1 cap PO DAILY 10/26/24 [History] clonazePAM [Clonazepam] 0.25 mg PO BID PRN PRN 10/26/24 [History] hydrOXYzine HCL [Hydroxyzine HCl] 10 mg PO Q6HPRN PRN 10/26/24 [History] Sodium Bicarbonate 1,650 mg PO TID 01/02/25 [History] Hx Tetanus, Diphtheria Vaccination/Date Given: Yes Hx Influenza Vaccination/Date Given: No Hx Pneumococcal Vaccination/Date Given: No Travel Risk - International Travel Have you traveled outside of the country in past 3 weeks: No - Emerging Infectious Disease Are you exhibiting symptoms associated with any current EIDs: No - Past Medical History Pertinent Past Medical History: Yes Neurological History: Migraines, Seizures ENT History: No Pertinent History Cardiac History: Deep Vein Thrombosis Respiratory History: Pulmonary Embolism, Other Endocrine Medical History: No Pertinent History Musculoskeletal History: No Pertinent History GI Medical History: Crohns Disease, GERD, Pancreatitis, Ulcer History: Renal Disease Psycho-Social History: Anxiety, Bipolar, Depression Female Reproductive Disorders: Fibroids, Uterine Cancer Other Medical History: unknown source of acute kidney failure 04/28/2022. 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 pt reports she ended dialysis January 2024, reports her kidney values improved enough for her to end that treatment. Uses Oxygen at home. Dx of sezures, convulsions, or epilepsy. - Past Surgical History Past Surgical History: Yes Neuro Surgical History: Brain Shunt Cardiac: No Pertinent History Respiratory: No Pertinent History Gastrointestinal: Cholecystectomy, Other Genitourinary: No Pertinent History Musculoskeletal: Orthopedic Surgery Female Surgical History: Hysterectomy, Dilation & Curettage, Other Other Surgical History: intestine resected 4-5 times, pins R foot, multiple port placement, G tube Significant Family History: no pertinent family hx - Female History Hx Last Menstrual Period: none Hx Now: No - Social History Smoking Status: Former smoker Exposure to second hand smoke: Yes Drug Use: marijuana - Social Determinants of Health Will the patient participate in the screening: Declined to provide - Nursing Vital Signs Nursing Vital Signs: Initial Vital Signs Temperature 97.3 F 09/25/25 14:50 Pulse Rate 99 H 09/25/25 14:50 Respiratory Rate 16 09/25/25 14:50 Blood Pressure 117/77 09/25/25 14:50 O2 Sat by Pulse Oximetry 98 09/25/25 14:50 Pain Scale Pain Intensity 7 - Physical Exam SpO2 Interpretation: normal SpO2: 98 Comments: 09/25/25 15:33 Review of Systems Constitutional: Negative for fever. HENT: Cough, cold, congestion Respiratory: Negative for shortness of breath. Cardiovascular: Negative for chest pain. Gastrointestinal: Negative for abdominal pain. Genitourinary: Negative for dysuria. Musculoskeletal: Negative for back pain. Skin: Negative for rash. Neurological: Headache Psychiatric/Behavioral: Negative for behavioral problems. All other systems reviewed and are negative. Physical Exam Vitals signs and nursing note reviewed. Constitutional: Appearance: Patient is well-developed. HENT: Head: Normocephalic and atraumatic. Eyes: Conjunctiva/sclera: Conjunctivae normal. Neck: Musculoskeletal: Normal range of motion. Trachea: No tracheal deviation. Cardiovascular: Rate and Rhythm: Normal rate. Heart sounds normal. Pulmonary: Effort: Pulmonary effort is normal. No respiratory distress. Abdominal: Palpations: Abdomen is soft. Musculoskeletal: General: No deformity. Skin: General: Skin is warm and dry. Neurological/ Psychiatric: Mental Status: Mental status, behavior, interaction with environment is appropriate for patient's age and condition Motor: Patient lifts arms against gravity. Muscle strength and tone are normal Reflexes: Intact major reflexes Sensory: Light touch sensation intact throughout upper and lower extremities Coordination: Rapid alternating movements are intact. Normal [id number] Gait/Stance: Posture is normal, patient is sitting up in bed with normal strength - Course Nursing assessment & vital signs reviewed: Yes EKG Interpreted by Me: Sinus Rhythm (Sinus rhythm, my interpretation at 1541 is rate of 92, OK interval 180, QRS 81, QTc is 453, no STEMI or other ST changes) Ordered Tests: Active Orders 24 hr Category Date Time Status Hot Man STAT Care 09/25/25 15:15 Active EKG-ER Only STAT Care 09/25/25 15:14 Completed IV Insertion STAT Care 09/25/25 15:14 Active CHEST 1 VIEW (PORTABLE) Stat Exams 09/25/25 15:15 Completed HEAD WITHOUT CONTRAST [CT] Stat Exams 09/25/25 15:19 Completed CBC W DIFF Stat Lab 09/25/25 15:40 Completed CK-Creatinine Phosphokinase Stat Lab 09/25/25 15:40 Completed CMP Stat Lab 09/25/25 15:40 Completed LIPASE Stat Lab 09/25/25 15:40 Completed NT PRO BNPII Stat Lab 09/25/25 15:40 Completed PT INR [PROTIME WITH INR] Stat Lab 09/25/25 17:15 Completed TROPONIN Q4H Lab 09/25/25 15:40 Completed TROPONIN Q4H Lab 09/25/25 19:45 Ordered TROPONIN Q4H Lab 09/25/25 23:45 Ordered UA W/RFX UR CULTURE Stat Lab 09/25/25 15:14 Completed Urine Triage Profile Stat Lab 09/25/25 15:14 Completed Medication Summary Discontinued Medications Generic Name Dose Route Start Last Admin Trade Name Yasmany PRN Reason Stop Dose Admin Diphenhydramine HCl 25 mg 09/25/25 15:15 09/25/25 15:45 Diphenhydramine Hcl 50 Mg/Ml Vial IV 09/25/25 15:16 25 mg STAT ONE Administration Diphenhydramine HCl Confirm 09/25/25 15:39 Diphenhydramine Hcl 50 Mg/Ml Vial Administered 09/25/25 15:40 Dose 50 mg .ROUTE .STK-MED ONE Droperidol 1.25 mg 09/25/25 15:16 09/25/25 15:47 Droperidol 5 Mg/2 Ml Vial IV 09/25/25 15:17 1.25 mg STAT ONE Administration Droperidol Confirm 09/25/25 15:39 Droperidol 5 Mg/2 Ml Vial Administered 09/25/25 15:40 Dose 5 mg .ROUTE .STK-MED ONE Sodium Chloride 1,000 mls @ 999 mls/hr 09/25/25 15:14 09/25/25 16:54 Sodium Chloride 0.9% 1000 Ml IV 09/25/25 16:14 Infused .Q1H1M STA Infusion Sodium Chloride Confirm 09/25/25 15:39 Sodium Chloride 0.9% 1000 Ml Administered 09/25/25 15:40 Dose 1,000 mls @ ud .ROUTE .STK-MED ONE Ketorolac Tromethamine 15 mg 09/25/25 15:16 09/25/25 15:41 Ketorolac Tromethamine 30 Mg/Ml Inj IV 09/25/25 15:17 15 mg STAT ONE Administration Ketorolac Tromethamine Confirm 09/25/25 15:39 Ketorolac Tromethamine 30 Mg/Ml Inj Administered 09/25/25 15:40 Dose 30 mg .ROUTE .STK-MED ONE Lab/Rad Data: Laboratory Result Diagrams 09/25/25 15:40 09/25/25 15:40 Laboratory Results 09/25/25 09/25/25 09/25/25 Range/Units 17:15 15:40 15:40 WBC (3.98-10.04) x10^3/uL RBC (3.93-5.22) x10^6/uL Hgb (11.2-15.7) g/dL Hct (34.1-44.9) % MCV (79.4-94.8) fL MCH (25.6-32.2) pg MCHC (32.2-35.5) g/dL RDW (11.7-14.4) % Plt Count (182-369) x10^3/uL MPV (9.4-12.3) fL Gran % (34.0-71.1) % Immature Gran % (Auto) (0.001-0.429) % Nucleat RBC Rel Count (0.00-0.2) % Eos # (Auto) (0.04-0.36) x10^3/uL Immature Gran # (Auto) (0.001-0.031) x10^3u/L Absolute Lymphs (auto) (1.18-3.74) x10^3/uL Absolute Monos (auto) (0.24-0.86) x10^3/uL Absolute Nucleated RBC (0.00-0.012) x10^3u/L Lymphocytes % (19.3-51.7) % Monocytes % (4.7-12.5) % Eosinophils % (0.7-5.8) % Basophils % (0.1-1.2) % Absolute Granulocytes (1.56-6.13) x10^3/uL Basophils # (0.01-0.08) x10^3/uL PT 16.5 H (9.4-12.5) SECONDS INR 1.50 (0.8-3.0) Sodium (135-145) mmol/L Potassium (3.5-5.1) mmol/L Chloride (98-107) mmol/L Carbon Dioxide (22-30) mmol/L Anion Gap (5-15) MEQ/L BUN (7-17) mg/dL Creatinine (0.52-1.04) mg/dL Estimated GFR ML/MIN Glucose (74-106) mg/dL Calcium (8.4-10.2) mg/dL Total Bilirubin (0.2-1.3) mg/dL AST (14-36) U/L ALT (0-35) U/L Alkaline Phosphatase (38-126) U/L Creatine Kinase (30-135) U/L Troponin I < 0.012 (0.000-0.033) ng/mL NT-Pro-B Natriuret Pep (<300) pg/mL Serum Total Protein (6.3-8.2) g/dL Albumin (3.5-5.0) g/dL Lipase (23-300) U/L Urine Color (Yellow) Urine Appearance (Clear) Urine pH (4.6-8.0) Ur Specific [place] (1.005-1.030) Urine Protein (Negative) Urine Glucose (UA) (Negative) mg/dL Urine Ketones (Negative) Urine Blood (Negative) Urine Nitrite (Negative) Urine Bilirubin (Negative) Urine Urobilinogen (0.2) mg/dL Ur Leukocyte Esterase (Negative) U Hyaline Cast (Auto) (0-2) /LPF Urine Microscopic RBC (0-5) /HPF Urine Microscopic WBC (0-5) /HPF Ur Epithelial Cells (None Seen) /HPF Urine Bacteria (None Seen) /HPF Urine Culture Reflexed (NO) Urine Opiates Level (NEGATIVE) Ur Methadone (NEGATIVE) Urine Barbiturates (NEGATIVE) Ur Phencyclidine (PCP) (NEGATIVE) Urine Amphetamine (NEGATIVE) U Benzodiazepine Level (NEGATIVE) Urine Cocaine (NEGATIVE) Urine Marijuana (THC) (NEGATIVE) Influenza Type A Ag NEGATIVE (NEGATIVE) Influenza Type B Ag NEGATIVE (NEGATIVE) RSV (PCR) NEGATIVE (NEGATIVE) SARS-CoV-2 (PCR) NEGATIVE (NEGATIVE) 09/25/25 09/25/25 09/25/25 Range/Units 15:40 15:40 15:14 WBC 5.9 (3.98-10.04) x10^3/uL RBC 3.00 L (3.93-5.22) x10^6/uL Hgb 8.0 L (11.2-15.7) g/dL Hct 27.2 L (34.1-44.9) % MCV 90.7 (79.4-94.8) fL MCH 26.7 (25.6-32.2) pg MCHC 29.4 L (32.2-35.5) g/dL RDW 16.7 H (11.7-14.4) % Plt Count 151 L (182-369) x10^3/uL MPV 9.8 (9.4-12.3) fL Gran % 56.7 (34.0-71.1) % Immature Gran % (Auto) 0.3 (0.001-0.429) % Nucleat RBC Rel Count 0.0 (0.00-0.2) % Eos # (Auto) 0.09 (0.04-0.36) x10^3/uL Immature Gran # (Auto) 0.02 (0.001-0.031) x10^3u/L Absolute Lymphs (auto) 1.64 (1.18-3.74) x10^3/uL Absolute Monos (auto) 0.79 (0.24-0.86) x10^3/uL Absolute Nucleated RBC 0.00 (0.00-0.012) x10^3u/L Lymphocytes % 27.9 (19.3-51.7) % Monocytes % 13.4 H (4.7-12.5) % Eosinophils % 1.5 (0.7-5.8) % Basophils % 0.2 (0.1-1.2) % Absolute Granulocytes 3.33 (1.56-6.13) x10^3/uL Basophils # 0.01 (0.01-0.08) x10^3/uL PT (9.4-12.5) SECONDS INR (0.8-3.0) Sodium 135 (135-145) mmol/L Potassium 3.6 (3.5-5.1) mmol/L Chloride 111 H (98-107) mmol/L Carbon Dioxide 17 L (22-30) mmol/L Anion Gap 10.2 (5-15) MEQ/L BUN 14 (7-17) mg/dL Creatinine 1.16 H (0.52-1.04) mg/dL Estimated GFR 60.0 ML/MIN Glucose 86 (74-106) mg/dL Calcium 7.7 L (8.4-10.2) mg/dL Total Bilirubin 0.50 (0.2-1.3) mg/dL AST 21 (14-36) U/L ALT 15 (0-35) U/L Alkaline Phosphatase 169 H (38-126) U/L Creatine Kinase < 20 L (30-135) U/L Troponin I (0.000-0.033) ng/mL NT-Pro-B Natriuret Pep 1090 (<300) pg/mL Serum Total Protein 6.2 L (6.3-8.2) g/dL Albumin 2.1 L (3.5-5.0) g/dL Lipase 13 L (23-300) U/L Urine Color (Yellow) Urine Appearance (Clear) Urine pH (4.6-8.0) Ur Specific [place] (1.005-1.030) Urine Protein (Negative) Urine Glucose (UA) (Negative) mg/dL Urine Ketones (Negative) Urine Blood (Negative) Urine Nitrite (Negative) Urine Bilirubin (Negative) Urine Urobilinogen (0.2) mg/dL Ur Leukocyte Esterase (Negative) U Hyaline Cast (Auto) (0-2) /LPF Urine Microscopic RBC (0-5) /HPF Urine Microscopic WBC (0-5) /HPF Ur Epithelial Cells (None Seen) /HPF Urine Bacteria (None Seen) /HPF Urine Culture Reflexed (NO) Urine Opiates Level NEGATIVE (NEGATIVE) Ur Methadone NEGATIVE (NEGATIVE) Urine Barbiturates NEGATIVE (NEGATIVE) Ur Phencyclidine (PCP) NEGATIVE (NEGATIVE) Urine Amphetamine NEGATIVE (NEGATIVE) U Benzodiazepine Level NEGATIVE (NEGATIVE) Urine Cocaine NEGATIVE (NEGATIVE) Urine Marijuana (THC) NEGATIVE (NEGATIVE) Influenza Type A Ag (NEGATIVE) Influenza Type B Ag (NEGATIVE) RSV (PCR) (NEGATIVE) SARS-CoV-2 (PCR) (NEGATIVE) 09/25/25 Range/Units 15:14 WBC (3.98-10.04) x10^3/uL RBC (3.93-5.22) x10^6/uL Hgb (11.2-15.7) g/dL Hct (34.1-44.9) % MCV (79.4-94.8) fL MCH (25.6-32.2) pg MCHC (32.2-35.5) g/dL RDW (11.7-14.4) % Plt Count (182-369) x10^3/uL MPV (9.4-12.3) fL Gran % (34.0-71.1) % Immature Gran % (Auto) (0.001-0.429) % Nucleat RBC Rel Count (0.00-0.2) % Eos # (Auto) (0.04-0.36) x10^3/uL Immature Gran # (Auto) (0.001-0.031) x10^3u/L Absolute Lymphs (auto) (1.18-3.74) x10^3/uL Absolute Monos (auto) (0.24-0.86) x10^3/uL Absolute Nucleated RBC (0.00-0.012) x10^3u/L Lymphocytes % (19.3-51.7) % Monocytes % (4.7-12.5) % Eosinophils % (0.7-5.8) % Basophils % (0.1-1.2) % Absolute Granulocytes (1.56-6.13) x10^3/uL Basophils # (0.01-0.08) x10^3/uL PT (9.4-12.5) SECONDS INR (0.8-3.0) Sodium (135-145) mmol/L Potassium (3.5-5.1) mmol/L Chloride (98-107) mmol/L Carbon Dioxide (22-30) mmol/L Anion Gap (5-15) MEQ/L BUN (7-17) mg/dL Creatinine (0.52-1.04) mg/dL Estimated GFR ML/MIN Glucose (74-106) mg/dL Calcium (8.4-10.2) mg/dL Total Bilirubin (0.2-1.3) mg/dL AST (14-36) U/L ALT (0-35) U/L Alkaline Phosphatase (38-126) U/L Creatine Kinase (30-135) U/L Troponin I (0.000-0.033) ng/mL NT-Pro-B Natriuret Pep (<300) pg/mL Serum Total Protein (6.3-8.2) g/dL Albumin (3.5-5.0) g/dL Lipase (23-300) U/L Urine Color Yellow (Yellow) Urine Appearance Clear (Clear) Urine pH 5.5 (4.6-8.0) Ur Specific [place] 1.010 (1.005-1.030) Urine Protein Negative (Negative) Urine Glucose (UA) Negative (Negative) mg/dL Urine Ketones Negative (Negative) Urine Blood Negative (Negative) Urine Nitrite Negative (Negative) Urine Bilirubin Negative (Negative) Urine Urobilinogen 0.2 (0.2) mg/dL Ur Leukocyte Esterase Negative (Negative) U Hyaline Cast (Auto) NONE SEEN (0-2) /LPF Urine Microscopic RBC 0-2 (0-5) /HPF Urine Microscopic WBC 0-2 (0-5) /HPF Ur Epithelial Cells None Seen (None Seen) /HPF Urine Bacteria None Seen (None Seen) /HPF Urine Culture Reflexed NO (NO) Urine Opiates Level (NEGATIVE) Ur Methadone (NEGATIVE) Urine Barbiturates (NEGATIVE) Ur Phencyclidine (PCP) (NEGATIVE) Urine Amphetamine (NEGATIVE) U Benzodiazepine Level (NEGATIVE) Urine Cocaine (NEGATIVE) Urine Marijuana (THC) (NEGATIVE) Influenza Type A Ag (NEGATIVE) Influenza Type B Ag (NEGATIVE) RSV (PCR) (NEGATIVE) SARS-CoV-2 (PCR) (NEGATIVE) - Progress Progress: improved Progress Note: 09/25/25 15:34 Differential diagnosis includes: PNA, STEMI, NSTEMI, other infection, musculoskeletal pain, pneumothorax - We'll obtain basic labs, fluids, EKG, troponin, chest x-ray - EKG shows no ST changes - my read - O2 saturations consistently greater than 95%. - CXR shows no pneumonia, pneumothorax - my read - We will also obtain a head CT given recent neuro issues, and headache Will give patient a headache cocktail as well as for her nausea. 09/25/25 16:[address]: IMPRESSION: Acute hemorrhage within previously noted area of hypoattenuation within the right occipital lobe. I did discuss the above with her PCP, Dr. Calvillo. She did review the patient's discharge summary from August. She states that she was discharged from [facility] on September 01 for a head bleed. I did discuss this with the patient patient states that she was in fact not transferred to [facility] as she had originally told me. Therefore we will upload images to the [facility] cloud and discuss with neurosurgery at this point in time. 09/25/25 17:16 * I spoke with Dr. Chandra of neurosurgery at [facility]. He reviewed the images. He did not feel that this represented an acute bleed. Stated that it appeared similar to previous images. However, given the patient's history and continued headache, he did recommend transfer to [facility] for admission and full evaluation. He did not recommend any intervention or medication at this point in time given that he felt it was old. He recommend that we mid to the hospital team, I did speak with Dr. Villa over the phone. We did go over the case in detail. She did ultimately accept the patient to her service. She recommended a PCU admission. Continued close ER monitoring until time of transfer. 09/25/25 17:20 ED critical care statement As staff physician, I have provided critical care. Time: 54 mins Criteria for critical illness: Acute intercranial hemorrhage Treatment and management provided include: Coordination of management with ETC care team, consultants, and inpatient care team. [id number] assessment of condition and response to therapy. Review and interpretation of emergent diagnostic testing. Medical chart review and completion. Direction and immediate supervision of the following therapy: Critical care was time spent personally by me on the following activities: blood draw for specimens, development of treatment plan with patient or surrogate, discussions with consultants, discussions with primary provider, interpretation of cardiac output measurements, evaluation of patient's response to treatment, examination of patient, obtaining history from patient or surrogate, ordering and performing treatments and interventions, ordering and review of laboratory studies, ordering and review of radiographic studies, pulse oximetry, re-evaluation of patient's condition and review of old charts. This time was independent of all procedures performed. Leo Nicole 09/25/25 18:36 [facility] has arrived to transport patient. Patient has remained hemodynamically stable. No further headaches, worsening symptoms. Patient otherwise stable for transport to [facility] where they have neurosurgery for definitive care of pathology. Counseled pt/family regarding: lab results, diagnosis, need for follow-up, rad results - Departure Departure Disposition: Transfer Clinical Impression: Acute intracranial hemorrhage, Headache, Nausea & vomiting Condition: Stable Critical Care Time: Yes Critical Care Time(excluding separately billable procedures): Critical 30-74 mins Referrals: OSCAR CALVILLO DO [Primary Care Provider, [facility]] - Follow up/PCP as directed
[2025-09-25 15:37] LABS: BASOPHIL % 0.2 % (0.1-1.2); Basophil (Absolute #) 0.01 x10^3/uL (0.01-0.08); Eosinophil (Absolute #) 0.09 x10^3/uL (0.04-0.36); Hematocrit 27.2 % (34.1-44.9); Hemoglobin 8.0 g/dL (11.2-15.7); IMMATURE GRAN # 0.02 x10^3u/L (0.001-0.031); IMMATURE GRAN % 0.3 % (0.001-0.429); Lymphocyte (Absolute #) 1.64 x10^3/uL (1.18-3.74); Mean Corpuscular Hemoglobin 26.7 pg (25.6-32.2); Mean Corpuscular Hgb Concent. 29.4 g/dL (32.2-35.5); Monocyte (Absolute #) 0.79 x10^3/uL (0.24-0.86); NUCLEATED RBC # 0.00 x10^3u/L (0.00-0.012); NUCLEATED RBC % 0.0 % (0.00-0.2); Platelet Count 151 x10^3/uL (182-369); Red Blood Count 3.00 x10^6/uL (3.93-5.22); White Blood Count 5.9 x10^3/uL (3.98-10.04)
[2025-09-25] MEDS ORDERED: Inapsine 5 MG/2 ML ONE (15:39)
[2025-09-25] MEDS ORDERED: TORAdol 30 mg Injection ONE (15:39)
[2025-09-25] MEDS ORDERED: BENADRYL 50 MG/ML ONE (15:39)
[2025-09-25] MEDS: TORAdol 30 mg Injection IV ONE (15:41)
[2025-09-25] MEDS: BENADRYL 50 MG/ML IV ONE (15:45)
[2025-09-25] MEDS: Inapsine 5 MG/2 ML IV ONE (15:47)
[2025-09-25 15:59] LABS: CK-Creatinine Phosphokinase < 20 U/L (30-135); Calcium 7.7 mg/dL (8.4-10.2); Carbon Dioxide 17 mmol/L (22-30); Creatinine 1 1.16 mg/dL (0.52-1.04); EST GLOMERULAR FILTRATION RATE 60.0 ML/MIN; Glucose 86 mg/dL (74-106); NT PRO BNPII 1090 pg/mL (<300); Potassium 3.6 mmol/L (3.5-5.1); SGOT/AST 21 U/L (14-36); SGPT/ALT 15 U/L (0-35); Total Protein 6.2 g/dL (6.3-8.2)
--- NOTE | 2025-09-25 16:07 | XRAY ---
CLINICAL HISTORY: [facility] COMPARISON: 10/28/24 TECHNIQUE: An X-ray image of the chest is obtained in AP projection. FINDINGS: Pulmonary Parenchyma: Lungs are clear bilaterally. No evidence of consolidation, collapse, or focal opacities. No pulmonary nodules are identified. No evidence of pleural effusion or pleural thickening. Heart and Mediastinum: Heart size and shape are normal. No mediastinal widening or masses. No hilar or mediastinal lymphadenopathy. Central line is in the distal SVC. Bony Thorax: Bony thorax appears intact without fractures or deformities. Soft Tissues: Soft tissues overlying the chest wall are unremarkable. IMPRESSION: No acute cardiopulmonary abnormalities are identified. Electronically Signed by: Cassandra Palmer MD. (09/25/2025 16:07:19 EST)
--- NOTE | 2025-09-25 16:07 | XRAY ---
CLINICAL HISTORY: headache COMPARISON: 01/06/24 TECHNIQUE: Axial non-contrast CT scan of the brain was performed from the skull base to the high parietal region in axial, sagittal and coronal reconstructions. One of the following dose reduction techniques were utilized for this exam: Automated exposure control, adjustment of the mA and/or kV according to patient size, use of iterative reconstruction. FINDINGS: Brain Parenchyma: Area of hypoattenuation in the right occipital lobe is again noted, now containing acute hemorrhage. Ventricular System: Stable enlargement of the lateral ventricles. Subarachnoid Spaces: Normal sulci and cisterns. No evidence of subarachnoid hemorrhage or extra-axial fluid collections. Cerebellum and Brainstem: No masses, lesions, or areas of abnormal density. Orbits: Normal appearance of the globes, optic nerves, and extraocular muscles. No evidence of orbital masses or abnormal density. Sinuses: Clear paranasal sinuses. No evidence of sinusitis or mucosal thickening. Mastoid Air Cells: Clear mastoid air cells. No evidence of mastoiditis. Skull: Normal skull morphology. IMPRESSION: Acute hemorrhage within previously noted area of hypoattenuation within the right occipital lobe. Electronically Signed by: Cassandra Palmer MD. (09/25/2025 16:06:26 EST)
[2025-09-25 16:13] LABS: INFLUENZA A NEGATIVE (NEGATIVE); INFLUENZA B NEGATIVE (NEGATIVE); RESPIRATORY SYNCTIAL VIRUS NEGATIVE (NEGATIVE); SARS-CoV-2 Xpert Express NEGATIVE (NEGATIVE)
[2025-09-25 17:06] LABS: Glucose, Urine Negative (Negative); Protein,Urine Dip Negative (Negative); RBC 0-2 /HPF (0-5); WBC 0-2 /HPF (0-5)
[2025-09-25 17:17] LABS: Amphetamine,Urine NEGATIVE (NEGATIVE); Barbiturate,Urine NEGATIVE (NEGATIVE); Benzodiazepine,Urine NEGATIVE (NEGATIVE); Cocaine,Urine NEGATIVE (NEGATIVE); Methadone,Urine NEGATIVE (NEGATIVE); Opiate,Urine NEGATIVE (NEGATIVE); PCP,Urine NEGATIVE (NEGATIVE); THC,Urine NEGATIVE (NEGATIVE)
[2025-09-25 17:35] LABS: INR 1.5 (0.8-3.0); PROTIME 16.5 SECONDS (9.4-12.5)
[2025-09-25 18:23] VITALS: O2SAT 98
[2025-09-25 18:48] VITALS: BP 91/55; PULSE 78; RESP 14
== END 2025-09-25 18:50 | disposition short-term general hospital (02) ==
LOC: ED 14:49
DX: I62.9 Nontraumatic intracranial hemorrhage, unspecified (principal); R51.9 Headache, unspecified; R11.2 Nausea with vomiting, unspecified; R53.81 Other malaise; R05.9 Cough, unspecified; Z79.899 Other long term (current) drug therapy